=== PATIENT | male | born 1950 | race Caucasian/White ===

== ENCOUNTER 2019-01-09 09:45 | Inpatient (IN) | payer OTHER, MEDICARE, SELFPAY ==
[2019-01-09] VITALS (16 sets, daily range): BP systolic 149–179; BP diastolic 95–105; PULSE 77–89; RESP 10–28; TEMP 36.4–36.9; O2SAT 93–97; BMI 32.5; BMI 30.9; BMI 31.0
--- NOTE | 2019-01-09 10:00 | RAD_ITS ---
STUDY: X-RAY CHEST REASON FOR EXAM: Male, 68 years old. Shortness of breath and leg swelling. TECHNIQUE: Single AP portable view of the chest. COMPARISON: Prior comparison studies are not available for review at this time. FINDINGS: Cardiac monitoring leads are present. The lungs are expanded. There is right basilar airspace disease and/or subsegmental atelectasis. There is a small left-sided pleural effusion. There is mild cardiac enlargement. Normal mediastinum and eric. Normal visualized pulmonary arteries. There is atherosclerotic calcification of the aortic arch with tortuosity. Normal visualized thoracic spine. Normal visualized ribs, clavicles, and shoulders. There is no demonstrated abnormality of the visualized soft tissue structures of the upper abdomen. RAD/Chest 1 View (Portable) IMPRESSION: There is right basilar airspace consolidation and subsegmental atelectasis. Electronically Signed: Elba Clark MD at 10:24 EDT , Service support ,
--- NOTE | 2019-01-09 10:00 | EKG12_ITS ---
Test Reason : SOB Blood Pressure : / mmHG Vent. Rate : 089 BPM Atrial Rate : 089 BPM P-R Int : 152 ms QRS Dur : 078 ms QT Int : 386 ms P-R-T Axes : 050 -23 103 degrees QTc Int : 469 ms Normal sinus rhythm Anteroseptal infarct , age undetermined Abnormal ECG Confirmed by MEAGHAN FOWLER, VERONIQUE ([id number]), editor news FELECIA ANGUIANO ([id number]) on 01/14/2019 9:44:08 A M Referred By: TROY Confirmed By:MOLLY HARDING MD
[2019-01-09 10:14] LABS: Absolute Lymphocyte Count 1.05 X10^3/uL (0.83-4.51); Basophil# 0.03 X10^3/uL; Basophil% 0.3 % (0-1); Eosinophil# 0.11 X10^3/uL; Eosinophils% 1.2 % (0-5); Hematocrit 52.2 % (40-54); Hemoglobin 16.9 g/dL (13.0-16.5); Lymphocyte # 1.05 X10^3/ul (4.0); Lymphocyte % 11.8 % (19-41); Mean Corp Hgb Conc 32.4 g/dL (32-36); Mean Corpuscular Hgb 30.4 pg (27.0-32.0); Mean Corpuscular Volume 93.9 fL (80-94); Mean Platelet Vol. 10.3 fl (6.2-12.0); Monocyte# 0.65 X10^3/uL; Monocyte% 7.3 % (0-10); NRBC Flagged by Analyzer 0 % (0-5); Neutrophil # 7.03 X10^3/uL (2.7-7.7); Neutrophil % 78.7 % (47-70); Platelet Count 223 K/mm3 (150-450); RBC Distribution Width CV 13.4 % (11.6-14.6); RBC Distribution Width SD 46.1 fl (35.1-43.9); Red Blood Count 5.56 M/mm3 (4.6-6.2); White Blood Count 8.9 K/mm3 (4.4-11.0)
[2019-01-09 10:31] LABS: Anion Gap 0 (5-15); BUN 12 mg/dL (7-18); BUN/Creat Ratio 14.1 RATIO (10-20); Calcium,Total 8.8 mg/dL (8.5-10.1); Chloride 101 mmol/L (98-107); Creatinine, Serum 0.85 mg/dL (0.70-1.30); EST Glomerular Filtration Rate 95 mL/min (>60); Est Glom Filt Rate - Afr Amer 115 mL/min (>60); Estimated Creatinine Clearance 91.29 ml/min; Glucose 98 mg/dL (74-106); Potassium 3.9 mmol/L (3.5-5.1); Sodium Level 140 mmol/L (136-145)
[2019-01-09] MEDS: Aspirin 81 MG TAB.CHEW 324 MG PO (10:35)
[2019-01-09] MEDS: Furosemide 20 MG/2 ML VIAL IV (10:35)
[2019-01-09 10:40] LABS: BNP,B-Type NATRIURETIC PEPTIDE 902.2 pg/mL (0-100)
--- NOTE | 2019-01-09 10:45 | CT_ITS ---
STUDY: CTA CHEST REASON FOR EXAM: Male, 68 years old. Shortness of breath and congestive heart failure. RADIATION DOSAGE (If Supplied By Facility): CTDIvol = ( 14.98 ) mGy, DLP = ( 564.92 ) mGycm TECHNIQUE: The examination was performed with the intravenous administration of 100 ml of Isovue 370. Post-processing of the angiographic images was performed, with multiplanar reformation and 3D reconstruction. Individualized dose optimization techniques were used for this CT. COMPARISON: Prior comparison studies are not available for review at this time. FINDINGS: Normal enhancement of the main pulmonary artery and right and left pulmonary arteries. Normal enhancement of the bilateral peripheral pulmonary arteries. There is no demonstrated pulmonary embolism. There is prominence of the main pulmonary arteries and peripheral pulmonary arteries. There is atherosclerotic tortuosity of the aortic arch and descending thoracic aorta. Maximum transverse dimension of the descending thoracic aorta is 4.5 cm. There is no demonstrated aortic dissection. There is a moderately large pericardial effusion located anterior to the heart measuring approximately 2.4 cm in thickness. Normal mediastinum. Normal hilar regions. Normal visualized trachea and bronchi. The lungs are hyper expanded, with flattening of the hemidiaphragms. There is bilateral basilar dependent and compressive atelectasis. There is right middle lobe subsegmental atelectasis. There are large bilateral pleural effusions, right larger than left. There is a calcified nodule in the left lower lobe. Normal chest wall structures. There are degenerative changes of thoracic spine. There is reflux of contrast into the hepatic veins suggesting pulmonary congestion. CT/CTA Chest W/WO Contrast IMPRESSION: 1. No CTA demonstrated pulmonary embolism or arterial dissection. 2. Findings suggest congestive heart failure with large bilateral pleural effusions, bilateral compressive atelectasis and possible airspace disease. 3. Moderately large pericardial effusion. Electronically Signed: Elba Clark MD at 11:43 EDT , Service support ,
--- NOTE | 2019-01-09 10:46 | HP.PCM_ITS ---
Problem List (1) CHF (congestive heart failure) Status: Acute (2) Essential (primary) hypertension Status: Chronic History of Present Illness Date of Admission: 01/09/19 Chief Complaint: Shortness of breath The patient is a 68 year old M past medical history significant essential hypertension who was sent from his PCPs office with shortness of breath. Patient reports progressive shortness of breath over the past couple of weeks. He also did notice increasing swelling involving both lower extremities. He also complains of easy fatigability. He was seen and assessed on his day of admission at his PCPs office patient was felt to be in acute congestive heart failure and subsequently sent to the ED. His diagnosis was confirmed in the ED started on Lasix and admitted to a monitored bed for further management. Past Medical History Past Medical History (Chronic Problems): Chronic Problems Essential (primary) hypertension (Chronic) Allergies No Known Allergies Allergy (Verified 01/09/19 09:49) Smoking Status: Never smoker - *Family History Maternal History Items: - - Mother patient unsure of the cause Paternal History Items: - - Patient not sure of father's cause of Review of Systems Constitutional: Reports: Weight Change. Denies: Anorexia, Chills, Fever, Night Sweats HEENT: Denies: Head Aches, Sinus Congestion, Sinus Drainage Cardiovascular: Reports: Edema, Orthopnea. Denies: Chest Pain, Palpitations, Paroxysmal Noc. Dyspnea Respiratory: Denies: Cough, Shortness of Breath Gastrointestinal: Denies: Abdominal Pain, Hematemesis, Hematochezia, Nausea, Melena, Vomiting Genitourinary: Denies: Dysuria, Frequency, Hematuria, Urgency Musculoskeletal: Denies: Joint Pain, Joint Tenderness Skin: Denies: Rash Neurological: Denies: Focal weakness, Numbness, Tingling Psychiatric: Denies: Homicidal Ideations, Suicidal Ideations Hematologic/ Lymphatic: Denies: Easy Bruising, Easy Bleeding VTE Information - Inpt Only VTE Present on Admission: No VTE Mechan Device Prophylaxis: SCD's VTE Pharm Prophylaxis ordered?: Yes Patient Problems: Active and Suspected Problems CHF (congestive heart failure) (Acute) Objective: GENERAL: cooperative HEENT: Atraumatic; moist oral mucosa EYES; Anicteric, Normal Conjunctiva NECK; supple, normal thyroid, distended JVD. RESPIRATORY: Diminished to auscultation bilaterally, CARDIOVASCULAR: Regular S1 S2, s GI: soft, non-tender, normoactive bowel sounds, : No Renal angle tenderness; EXTREMITIES: 2+ edema, no clubbing, no cyanosis. MUSCULOSKELETAL: No Joint Tenderness; g NEURO: Awake; no lateralizing signs. SKIN: No Rash PSYCH; Normal affect - Physical Exam Vital Signs Temp Pulse Resp BP Pulse Ox 98 F 86 18 179/105 H 97 01/09/19 09:46 01/09/19 09:46 01/09/19 09:46 01/09/19 09:46 01/09/19 10:19 Oxygen Flow Rate (L/min) 2 Oxygen Delivery Method Nasal Cannula Weight: 108.862 kg Body Mass Index (BMI) 32.5 Laboratory Tests Past 24 Hrs 01/09/19 01/09/19 01/09/19 10:05 10:05 10:05 WBC 8.9 RBC 5.56 Hgb 16.9 H Hct 52.2 MCV 93.9 MCH 30.4 MCHC 32.4 RDW Std Deviation 46.1 H RDW Coeff of Babita 13.4 Plt Count 223 MPV 10.3 Immature Gran % (Auto) 0.700 Neut % (Auto) 78.7 H Lymph % (Auto) 11.8 L Nobles % (Auto) 7.3 Eos % (Auto) 1.2 Baso % (Auto) 0.3 Absolute Neuts (auto) 7.0 Absolute Lymphs (auto) 1.05 Nucleated RBC % 0 Sodium 140 Potassium 3.9 Chloride 101 Carbon Dioxide 39.0 H Anion Gap 0 L BUN 12 Creatinine 0.85 Estim Creat Clear Calc 91.29 Est GFR (MDRD) Af Amer 115 Est GFR (MDRD) Non-Af 95 BUN/Creatinine Ratio 14.1 Glucose 98 Calcium 8.8 Troponin I 0.037 B-Natriuretic Peptide 902.2 H Assessment/Plan All Active Problems CHF (congestive heart failure) (Acute) Patient is a 68-year-old gentleman presented with progressive shortness of breath 1. Acute congestive heart failure ~Unspecified. Patient has been admitted to monitored bed as part of his management patient was placed on daily input and output, daily weights, restriction, low-sodium diet. Echo was ordered for EF assessment. Patient was placed on Lasix and consultation placed to cardiology 2. Large bilateral pleural effusions ~With bilateral compressive atelectasis and possible airspace disease secondary to above management is with Lasix however if patient failed to respond we will consider obtaining an ultrasound-guided thoracocentesis 3. Moderately large pericardial effusion ~an echo has been ordered for subsequent evaluation; found on echo obtain cardiology consultation 4. Essential hypertension ~Continue patient home meds once his meds have been reconciled 5. Obesity ~ with BMI of 32.5 weight loss advised 6. DVT prophylaxis ~ SC Lovenox Clinical Impression(s) from Imaging Studies Chest X-Ray 01/09/19 10:00 IMPRESSION: There is right basilar airspace consolidation and subsegmental atelectasis. Electronically Signed: Elba Clark MD at 10:24 EDT , Service support , Chest CTA 01/09/19 10:45 IMPRESSION: 1. No CTA demonstrated pulmonary embolism or arterial dissection. 2. Findings suggest congestive heart failure with large bilateral pleural effusions, bilateral compressive atelectasis and possible airspace disease. 3. Moderately large pericardial effusion. Electronically Signed: Elba Clark MD at 11:43 EDT , Service support , Code Visit Inpatient E&M: 24554 Init Hosp L3
--- NOTE | 2019-01-09 11:13 | CPS ---
Patient placed back on BIPAP after trip to CT Scan. Pressures increased to 12/6.
--- NOTE | 2019-01-09 12:16 | ED.RN ---
pt to PCU on 2 L NC. resp will bring BIPAP to floor.
--- NOTE | 2019-01-09 12:53 | ECHOD_ITS ---
Version 2 Reason For Study: Dyspnea/SOB Procedure This was a 2D Doppler, Color Flow transthoracic echocardiogram. Pericardial and Pleural Effusions seen on CT. Exam performed portable in patient room. Left Ventricle Normal LV size. Concentric left ventricular hypertrophy. The estimated ejection fraction is 60 %. No evidence for diastolic dysfunction. No regional wall motion abnormalities noted. Right Ventricle Normal RV size. Normal systolic function. Atria Normal left atrium. Normal right atrium. No doppler evidence for ASD. Mitral Valve There is no mitral valve stenosis. No mitral valve insufficiency. Tricuspid Valve There is no tricuspid stenosis. Unable to estimate RV systolic pressure due to insufficient tricuspid regurgitant envelope. Trivial tricuspid valve insufficiency. Aortic Valve Trisinus/trileaflet aortic valve. There is no aortic stenosis. No aortic valve insufficiency. Pulmonic Valve There is no pulmonic valvular stenosis. No pulmonic valve insufficiency. Great Vessels Normal aortic root. Pericardium/Pleural Small pericardial effusion. Large left pleural effusion. MMode/2D Measurements & Calculations LVIDd: 4.2 cm IVSd: 1.8 cm Ao root diam: 3.7 cm LVIDs: 3.0 cm LVPWd: 1.5 cm LA dimension: 4.1 cm FS: 29.5 % LAV(MOD-bp): 72.4 ml LA A4 area: 23.5 cm2 RA A4 area: 13.6 cm2 LAV(MOD-bp) Indexed: 32.1 ml/m2 LAV(MOD-sp2): 63.8 ml LAV(MOD-sp4): 77.6 ml Time Measurements MV dec time: 0.20 sec Doppler Measurements & Calculations MV E max moy: 61.5 cm/sec Lat Peak E' Moy: 6.5 cm/sec Med Peak E' Moy: 6.7 cm/sec MV A max moy: 69.1 cm/sec E/E' lat: 9.5 E/E' med: 9.2 MV E/A: 0.89 MV V2 max: 92.5 cm/sec MV P1/2t max moy: 92.5 cm/sec Ao V2 max: 91.1 cm/sec MV max P.4 mmHg MV P1/2t: 57.0 msec Ao max P.3 mmHg MV V2 mean: 50.4 cm/sec MV dec slope: 475.9 cm/sec2 MV mean P.2 mmHg MVA(P1/2t): 3.9 cm2 MV V2 VTI: 16.4 cm LV V1 max: 89.8 cm/sec PA V2 max: 88.6 cm/sec LV V1 max P.2 mmHg Interpretation Summary Concentric left ventricular hypertrophy. The estimated ejection fraction is 60 %. No evidence for diastolic dysfunction. Small pericardial effusion. Large left pleural effusion. Ordering Physician: Yimi Castro Referring Physician: Roseann Pate Performed By: Maurice Santiago RCS
[2019-01-09 13:36] LABS: Magnesium 2.1 mg/dL (1.6-2.6); Thyroid Stim Hormone (TSH) 7.33 uIU/mL (0.358-3.74)
[2019-01-09] MEDS: Furosemide 40 MG/4 ML Vial IV ×2 (15:14→21:33)
--- NOTE | 2019-01-09 17:37 | ED.DCSUM_ITS ---
- ER Visit Summary Date of Service: 01/09/19 Chief Complaint: Shortness of breath History of Present Illness: The patient is a [address] Pate. He complains of shortness of breath began 5 days ago. It is severe with exertion gone currently. He denies any chest pain. No cough, fever, or chills. Reports he has had swelling in both legs for 1 week. Physical Examination: Vitals: Stable. Afebrile. General: Well-nourished and well-developed. Head: Normocephalic atraumatic. Neck: Supple, no lymphadenopathy. No JVD. Nontender. Cardiovascular: Regular rate and rhythm. No murmurs. Respiratory: Mild respiratory distress. Crackles at the bases bilaterally. Y. Abdominal: Soft, nontender, nondistended, normal bowel sounds. No guarding, rebound, or peritoneal signs. Back: Nontender. Extremities: Nontender, 2+ pitting edema lower extremities bilaterally. 1+ pitting edema of his left upper extremity. Skin: Normal color, no rash. Neurologic: Alert and oriented ?3. Cranial nerves II through XII are intact. Normal strength and sensation. Psych: Normal affect. Test Results: EKG is sinus at 89. He has ST segment elevation in lead prior anterior NC or LV aneurysm. There is no old EKG for comparison. Initial troponin 0 0.037. 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 Chem-7 shows a CO2 of 39. CBC shows a hemoglobin 16.9, segmented for 7, 612. Chest x-ray shows CHF with atelectasis. Emergency Department Course and Treatment: Patient was placed on oxygen. He is quite tachypneic in bed. He was placed on BiPAP and has had significant relief from this. Is given a dose of Lasix IV and aspirin p.o. Treatment Plan: Patient was discussed with Dr. berman. He will be admitted to the hospital for further evaluation and treatment. Disposition: Admitted in improved condition. Impression: 1. CHF, new onset. 2. Indeterminate troponin. This note was generated with [employer] software. It may contain incorrect words, spelling, and punctuation that were not noted in review of the chart prior to signing ED Disposition - Plan for ED Patient: Disposition: Acute Care [facility]
[2019-01-09] MEDS: 0.9% NaCl Peripheral Flush Adult/Peds IV (21:33)
[2019-01-10] VITALS (17 sets, daily range): BP systolic 108–150; BP diastolic 70–102; PULSE 81–100; RESP 10–20; TEMP 36.4–36.9; O2SAT 92–98
[2019-01-10] MEDS: Furosemide 40 MG/4 ML Vial IV ×3 (05:50→21:41)
[2019-01-10] MEDS: 0.9% NaCl Peripheral Flush Adult/Peds IV ×4 (05:50→21:42)
[2019-01-10 06:21] LABS: Absolute Lymphocyte Count 0.98 X10^3/uL (0.83-4.51); Absolute Neutrophil Count 4.6 X10^3/uL (2.0-7.7); Basophil# 0.01 X10^3/uL; Basophil% 0.2 % (0-1); Eosinophil# 0.16 X10^3/uL; Eosinophils% 2.6 % (0-5); Hematocrit 47.5 % (40-54); Lymphocyte # 0.98 X10^3/ul (4.0); Lymphocyte % 15.6 % (19-41); Mean Corp Hgb Conc 31.6 g/dL (32-36); Mean Corpuscular Hgb 29.7 pg (27.0-32.0); Mean Corpuscular Volume 94.1 fL (80-94); Monocyte# 0.51 X10^3/uL; Monocyte% 8.1 % (0-10); NRBC Flagged by Analyzer 0 % (0-5); Neutrophil # 4.58 X10^3/uL (2.7-7.7); Platelet Count 189 K/mm3 (150-450); RBC Distribution Width CV 13.4 % (11.6-14.6); RBC Distribution Width SD 46.3 fl (35.1-43.9); Red Blood Count 5.05 M/mm3 (4.6-6.2); White Blood Count 6.3 K/mm3 (4.4-11.0)
[2019-01-10 06:51] LABS: Anion Gap 4 (5-15); BUN 17 mg/dL (7-18); Calcium,Total 8.1 mg/dL (8.5-10.1); Chloride 100 mmol/L (98-107); Creatinine, Serum 0.85 mg/dL (0.70-1.30); EST Glomerular Filtration Rate 95 mL/min (>60); Est Glom Filt Rate - Afr Amer 115 mL/min (>60); Estimated Creatinine Clearance 91.29 ml/min; Glucose 96 mg/dL (74-106); Magnesium 1.9 mg/dL (1.6-2.6); Potassium 4.2 mmol/L (3.5-5.1); Sodium Level 143 mmol/L (136-145)
[2019-01-10 09:27] LABS: Free T3 1.7 pg/mL (2.18-3.98)
[2019-01-10] MEDS: Enoxaparin 40 MG/0.4 ML Syringe SC (09:34)
[2019-01-10] MEDS: Metoprolol(XL)Succ 200 MG Tablet PO (09:36)
--- NOTE | 2019-01-10 10:13 | PCM.PROGNOTE ---
<Lauryn Vincent - Last Filed: 01/10/19 10:29> Patient Problems: Active and Suspected Problems CHF (congestive heart failure) (Acute) Subjective: Patient seen and examined. Reports improvement in shortness of breath and upper and lower extremity edema. Patient reports his baseline weight is approximately 224 pounds. Weight on admission to 40 pounds. Patient reports he initially noticed swelling and shortness of breath about 1 month ago. Denies history of heart failure. Denies chest pain. - Physical Exam General: Alert, Oriented x3, Cooperative HEENT: Atraumatic, PERRLA, EOMI, Normocephalic Neck: Supple, No JVD, Negative Carotid Bruits Lungs: Clear to auscultation, Diminished Cardiovascular: Regular rate, Regular Rhythm, Normal S1, Normal S2, No murmurs Abdomen: Bowel Sounds Present, Soft, Non Tender, Non-Distended Extremities: No clubbing, No cyanosis, Edema - +2 bilateral lower extremities, +1 bilateral upper extremities. Skin: No rashes, No breakdown Musculoskeletal: No Tenderness to Palpation of Joints or Extremities Neurological: Cranial nerves II-XII grossly intact, Neuro grossly intact Psych/Mental Status: Normal Affect, Appropriate Vital Signs Temp Pulse Resp BP Pulse Ox 98.3 F 90 16 119/76 95 01/10/19 09:30 01/10/19 09:36 01/10/19 09:30 01/10/19 09:36 01/10/19 09:30 Oxygen Flow Rate (L/min) 2 Oxygen Delivery Method Nasal Cannula Weight: 228 lb 9.592 oz Body Mass Index (BMI) 30.9 Intake and Output for Last 24 Hours 01/08/19 01/09/19 01/10/19 23:59 23:59 23:59 Intake Total 360 / 360 120 / 120 Output Total 2250 / 2250 625 / 625 Balance -1890 / -1890 -505 / -505 Laboratory Tests Past 24 Hrs 01/09/19 01/09/19 01/09/19 10:03 10:05 10:05 WBC 8.9 RBC 5.56 Hgb 16.9 H Hct 52.2 MCV 93.9 MCH 30.4 MCHC 32.4 RDW Std Deviation 46.1 H RDW Coeff of Babita 13.4 Plt Count 223 MPV 10.3 Immature Gran % (Auto) 0.700 Neut % (Auto) 78.7 H Lymph % (Auto) 11.8 L Hart % (Auto) 7.3 Eos % (Auto) 1.2 Baso % (Auto) 0.3 Absolute Neuts (auto) 7.0 Absolute Lymphs (auto) 1.05 Nucleated RBC % 0 Sodium 140 Potassium 3.9 Chloride 101 Carbon Dioxide 39.0 H Anion Gap 0 L BUN 12 Creatinine 0.85 Estim Creat Clear Calc 91.29 Est GFR (MDRD) Af Amer 115 Est GFR (MDRD) Non-Af 95 BUN/Creatinine Ratio 14.1 Glucose 98 Calcium 8.8 Magnesium 2.1 Troponin I 0.037 B-Natriuretic Peptide TSH 7.33 H Free T4 Free T3 pg/dL 01/09/19 01/09/19 01/09/19 10:05 14:33 17:38 WBC RBC Hgb Hct MCV MCH MCHC RDW Std Deviation RDW Coeff of Babita Plt Count MPV Immature Gran % (Auto) Neut % (Auto) Lymph % (Auto) Hart % (Auto) Eos % (Auto) Baso % (Auto) Absolute Neuts (auto) Absolute Lymphs (auto) Nucleated RBC % Sodium Potassium Chloride Carbon Dioxide Anion Gap BUN Creatinine Estim Creat Clear Calc Est GFR (MDRD) Af Amer Est GFR (MDRD) Non-Af BUN/Creatinine Ratio Glucose Calcium Magnesium Troponin I 0.040 0.037 B-Natriuretic Peptide 902.2 H TSH Free T4 Free T3 pg/dL 01/10/19 01/10/19 01/10/19 05:40 05:40 05:42 WBC 6.3 RBC 5.05 Hgb 15.0 Hct 47.5 MCV 94.1 H MCH 29.7 MCHC 31.6 L RDW Std Deviation 46.3 H RDW Coeff of Babita 13.4 Plt Count 189 MPV 10.0 Immature Gran % (Auto) 0.500 Neut % (Auto) 73.0 H Lymph % (Auto) 15.6 L Hart % (Auto) 8.1 Eos % (Auto) 2.6 Baso % (Auto) 0.2 Absolute Neuts (auto) 4.6 Absolute Lymphs (auto) 0.98 Nucleated RBC % 0 Sodium 143 Potassium 4.2 Chloride 100 Carbon Dioxide 39.0 H Anion Gap 4 L BUN 17 Creatinine 0.85 Estim Creat Clear Calc 91.29 Est GFR (MDRD) Af Amer 115 Est GFR (MDRD) Non-Af 95 BUN/Creatinine Ratio 20.0 Glucose 96 Calcium 8.1 L Magnesium 1.9 Troponin I B-Natriuretic Peptide TSH Free T4 0.80 Free T3 pg/dL 1.7 L Medical Necessity - Tobacco Use Smoking Status: Former smoker Assessment/Plan All Active Problems CHF (congestive heart failure) (Acute) 1. Acute CHF, unknown subtype-no prior history of CHF. BNP 902. CT of chest showed CHF with large bilateral pleural effusions. Moderately large pericardial effusion. Echocardiogram completed, report pending. Continue IV Lasix 40 mg every 8 hours. Strict I&O. Daily weight. Cardiology consulted. 2. Hypertension-stable, continue home metoprolol regimen. 3. Subclinical hypothyroidism-TSH 7.3. T4 normal. Recommend repeat TSH in 4-6 weeks as outpatient. 4. Obesity- encouraged diet and lifestyle modifications. DVT prophylaxis-Lovenox subcu This patient was seen by HOLLY Moody under the supervision of Dr. Castro. <Yimi Castro - Last Filed: 01/10/19 10:43> - Physical Exam Vital Signs Temp Pulse Resp BP Pulse Ox 98.3 F 90 16 119/76 95 01/10/19 09:30 01/10/19 09:36 01/10/19 09:30 01/10/19 09:36 01/10/19 09:30 Oxygen Flow Rate (L/min) 2 Oxygen Delivery Method Nasal Cannula Weight: 103.691 kg Body Mass Index (BMI) 30.9 Intake and Output for Last 24 Hours 01/08/19 01/09/19 01/10/19 23:59 23:59 23:59 Intake Total 360 / 360 120 / 120 Output Total 2250 / 2250 625 / 625 Balance -1890 / -1890 -505 / -505 Laboratory Tests Past 24 Hrs 01/09/19 01/09/19 01/09/19 10:03 10:05 14:33 WBC RBC Hgb Hct MCV MCH MCHC RDW Std Deviation RDW Coeff of Babita Plt Count MPV Immature Gran % (Auto) Neut % (Auto) Lymph % (Auto) Hart % (Auto) Eos % (Auto) Baso % (Auto) Absolute Neuts (auto) Absolute Lymphs (auto) Nucleated RBC % Sodium Potassium Chloride Carbon Dioxide Anion Gap BUN Creatinine Estim Creat Clear Calc Est GFR (MDRD) Af Amer Est GFR (MDRD) Non-Af BUN/Creatinine Ratio Glucose Calcium Magnesium 2.1 Troponin I 0.040 B-Natriuretic Peptide 902.2 H TSH 7.33 H Free T4 Free T3 pg/dL 01/09/19 01/10/19 01/10/19 17:38 05:40 05:40 WBC 6.3 RBC 5.05 Hgb 15.0 Hct 47.5 MCV 94.1 H MCH 29.7 MCHC 31.6 L RDW Std Deviation 46.3 H RDW Coeff of Babita 13.4 Plt Count 189 MPV 10.0 Immature Gran % (Auto) 0.500 Neut % (Auto) 73.0 H Lymph % (Auto) 15.6 L Hart % (Auto) 8.1 Eos % (Auto) 2.6 Baso % (Auto) 0.2 Absolute Neuts (auto) 4.6 Absolute Lymphs (auto) 0.98 Nucleated RBC % 0 Sodium 143 Potassium 4.2 Chloride 100 Carbon Dioxide 39.0 H Anion Gap 4 L BUN 17 Creatinine 0.85 Estim Creat Clear Calc 91.29 Est GFR (MDRD) Af Amer 115 Est GFR (MDRD) Non-Af 95 BUN/Creatinine Ratio 20.0 Glucose 96 Calcium 8.1 L Magnesium 1.9 Troponin I 0.037 B-Natriuretic Peptide TSH Free T4 Free T3 pg/dL 01/10/19 05:42 WBC RBC Hgb Hct MCV MCH MCHC RDW Std Deviation RDW Coeff of Babita Plt Count MPV Immature Gran % (Auto) Neut % (Auto) Lymph % (Auto) Hart % (Auto) Eos % (Auto) Baso % (Auto) Absolute Neuts (auto) Absolute Lymphs (auto) Nucleated RBC % Sodium Potassium Chloride Carbon Dioxide Anion Gap BUN Creatinine Estim Creat Clear Calc Est GFR (MDRD) Af Amer Est GFR (MDRD) Non-Af BUN/Creatinine Ratio Glucose Calcium Magnesium Troponin I B-Natriuretic Peptide TSH Free T4 0.80 Free T3 pg/dL 1.7 L Assessment/Plan This patient was seen in conjunction with HOLLY Moody . I have independently interviewed and examined the patient and reviewed pertinent historical, laboratory, and other data. Please refer to HOLLY Moody note for details of this patient's presentation, findings, and recommendations. I have reviewed ASHLEY MoodyC note and concur with documented findings. In brief, Patient is a 68-year-old gentleman presented with progressive shortness of breath and assessment of congestive heart failure made admitted to monitored bed for further management Physical Examination: GENERAL: cooperative HEENT: Atraumatic; moist oral mucosa EYES; Anicteric, Normal Conjunctiva NECK; supple, normal thyroid, distended JVD. RESPIRATORY: Diminished to auscultation bilaterally, CARDIOVASCULAR: Regular S1 S2, s GI: soft, non-tender, normoactive bowel sounds, : No Renal angle tenderness; EXTREMITIES: 2+ edema, no clubbing, MUSCULOSKELETAL: No Joint Tenderness; NEURO: Awake; no lateralizing signs. SKIN: No Rash PSYCH; Normal affect Assessment: 1. Acute congestive heart failure 2. Large bilateral pleural effusions 3. Moderately large pericardial effusion 4. Essential hypertension 5. Obesity 6. Abnormal TSH 7. DVT prophylaxis Recommendations: 1. I have discussed the results of my overview and impressions with the patient 2. Options for management were reviewed Code Visit Inpatient E&M: 60442 Subs Hosp L3
--- NOTE | 2019-01-10 11:40 | NURSING ---
Used to CARLTON wraps on lower extremities bilaterally.
--- NOTE | 2019-01-10 13:07 | NURSING ---
Javon wraps applied to bilateral lower legs, from toes to knees, by the student nurse.
--- NOTE | 2019-01-10 14:41 | CM.UR ---
RN CM Assessment Introduced role of RN CM to patient. Patient is alert and able to participate in RN CM Assessment. Care providers, pharmacy, and demographics verified. No family at bedside. Presentation: SOB, BLE swelling x 1 week. Admit Dx: CHF Re-Admit: No Barriers/Issues: None PCP: [place] Specialists: none Preferred Pharmacy: [facility] Insurance: MMO; MCR A Rx Benefit: yes MMO LNOK: Juany, S.O. LW/HPOA: None and declines additional information. Living Arrangements: Lives with girlfrienmimi, Juany, and her daughter and grandson. ADL?s: Independent Transportation: Drives. Still working. DME: States girlfriend has walker and w/c. DME co: no preference HHC: None SNF: None Goal: Home DC PLAN: Home with NN. discussed that he is currently on O2 and we would follow him for that. He states if he needs it-he will need written of work. 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 Explained more than likely he will not need to go home with it. Instructed patient on daily weights and to call Dr. Pate for any gain of 3# overnight, over 5# in 1 week or progressively increasing weight. Instructed best time is first thing in am, after urinating but before eating or drinking anything. Explained wear the same amount of clothing when weighing. Verb understanding. Alerting KYM Nicholson of need to wean O2. she states patient was hesitant to have it weaned and she thinks she can get him off of it pretty quick. Alexis Cosme RN, [facility].
[2019-01-11] VITALS (12 sets, daily range): BP systolic 135–153; BP diastolic 80–94; PULSE 84–101; RESP 16–17; TEMP 36.6–36.8; O2SAT 94–98
--- NOTE | 2019-01-11 02:48 | CPS ---
patient refused pap therapy. patient advised of pap therapy benefits but still refused therapy. RN aware
[2019-01-11] MEDS: Furosemide 40 MG/4 ML Vial IV (06:19)
[2019-01-11] MEDS: 0.9% NaCl Peripheral Flush Adult/Peds IV ×2 (06:19→06:20)
[2019-01-11 06:42] LABS: Anion Gap 4 (5-15); BUN 24 mg/dL (7-18); BUN/Creat Ratio 26.9 RATIO (10-20); Calcium,Total 8.2 mg/dL (8.5-10.1); Chloride 101 mmol/L (98-107); Creatinine, Serum 0.89 mg/dL (0.70-1.30); EST Glomerular Filtration Rate 90 mL/min (>60); Est Glom Filt Rate - Afr Amer 109 mL/min (>60); Estimated Creatinine Clearance 87.19 ml/min; Glucose 90 mg/dL (74-106); Potassium 3.7 mmol/L (3.5-5.1); Sodium Level 144 mmol/L (136-145)
[2019-01-11] MEDS: Enoxaparin 40 MG/0.4 ML Syringe SC (09:37)
[2019-01-11] MEDS: Metoprolol(XL)Succ 200 MG Tablet PO (09:38)
--- NOTE | 2019-01-11 10:31 | PCM.PROGNOTE ---
<Lauryn Vincent - Last Filed: 01/11/19 10:43> Patient Problems: Active and Suspected Problems CHF (congestive heart failure) (Acute) Subjective: Patient seen and examined. Denies shortness of breath. Lower extremity edema significantly improved. Awaiting echo results. Appears to be at baseline weight. - Physical Exam General: Alert, Oriented x3, Cooperative HEENT: Atraumatic, PERRLA, EOMI, Normocephalic Neck: Supple, No JVD, Negative Carotid Bruits Lungs: Clear to auscultation, Diminished Cardiovascular: Regular rate, Regular Rhythm, Normal S1, Normal S2, No murmurs Abdomen: Bowel Sounds Present, Soft, Non Tender, Non-Distended Extremities: No clubbing, No cyanosis, Capillary Refill Less than 3 Seconds, Edema - Bilateral lower extremities, improved. Skin: No rashes, No breakdown Musculoskeletal: No Tenderness to Palpation of Joints or Extremities Neurological: Cranial nerves II-XII grossly intact, Neuro grossly intact Psych/Mental Status: Normal Affect, Appropriate Vital Signs Temp Pulse Resp BP Pulse Ox 98.2 F 98 16 135/80 H 98 01/11/19 09:25 01/11/19 09:38 01/11/19 09:25 01/11/19 09:38 01/11/19 09:25 Oxygen Flow Rate (L/min) 2 Oxygen Delivery Method Room Air Weight: 223 lb 15.834 oz Body Mass Index (BMI) 30.9 Intake and Output for Last 24 Hours 01/09/19 01/10/19 01/11/19 23:59 23:59 23:59 Intake Total 360 / 360 1160 / 1160 Output Total 2250 / 2250 2725 / 2725 300 / 300 Balance -1890 / -1890 -1565 / -1565 -300 / -300 Laboratory Tests Past 24 Hrs 01/11/19 05:38 Sodium 144 Potassium 3.7 Chloride 101 Carbon Dioxide 39.0 H Anion Gap 4 L BUN 24 H Creatinine 0.89 Estim Creat Clear Calc 87.19 Est GFR (MDRD) Af Amer 109 Est GFR (MDRD) Non-Af 90 BUN/Creatinine Ratio 26.9 H Glucose 90 Calcium 8.2 L Medical Necessity - Tobacco Use Smoking Status: Former smoker Assessment/Plan All Active Problems CHF (congestive heart failure) (Acute) 1. Acute CHF, unknown subtype-no prior history of CHF. BNP 902. CT of chest showed CHF with large bilateral pleural effusions. Moderately large pericardial effusion. Echocardiogram completed, report pending. Reduce IV Lasix to 40 mg daily. Strict I&O. Daily weight. Cardiology consulted. 2. Hypertension-stable, continue home metoprolol regimen. 3. Subclinical hypothyroidism-TSH 7.3. T4 normal. Recommend repeat TSH in 4-6 weeks as outpatient. 4. Obesity- encouraged diet and lifestyle modifications. DVT prophylaxis-Lovenox subcu This patient was seen by HOLLY Moody under the supervision of Dr. Castro. <Yimi Castro - Last Filed: 01/11/19 10:48> - Physical Exam Vital Signs Temp Pulse Resp BP Pulse Ox 98.2 F 98 16 135/80 H 98 01/11/19 09:25 01/11/19 09:38 01/11/19 09:25 01/11/19 09:38 01/11/19 09:25 Oxygen Flow Rate (L/min) 2 Oxygen Delivery Method Room Air Weight: 101.6 kg Body Mass Index (BMI) 30.9 Intake and Output for Last 24 Hours 01/09/19 01/10/19 01/11/19 23:59 23:59 23:59 Intake Total 360 / 360 1160 / 1160 Output Total 2250 / 2250 2725 / 2725 300 / 300 Balance -1890 / -1890 -1565 / -1565 -300 / -300 Laboratory Tests Past 24 Hrs 01/11/19 05:38 Sodium 144 Potassium 3.7 Chloride 101 Carbon Dioxide 39.0 H Anion Gap 4 L BUN 24 H Creatinine 0.89 Estim Creat Clear Calc 87.19 Est GFR (MDRD) Af Amer 109 Est GFR (MDRD) Non-Af 90 BUN/Creatinine Ratio 26.9 H Glucose 90 Calcium 8.2 L Assessment/Plan This patient was seen in conjunction with HOLLY Moody . I have independently interviewed and examined the patient and reviewed pertinent historical, laboratory, and other data. Please refer to HOLLY Moody note for details of this patient's presentation, findings, and recommendations. I have reviewed HOLLY Moody note and concur with documented findings. In brief, Patient is a 68-year-old gentleman presented with progressive shortness of breath and assessment of congestive heart failure made admitted to monitored bed for further management 01/11/2019: Patient seen admitted improvement in his overall condition. His edema significantly down. Echo performed was performed on 01/09/2019. Results still pending awaiting results of echo prior to making a decision whether cardiology needs to be involved in patient's care Physical Examination: GENERAL: cooperative HEENT: Atraumatic; moist oral mucosa EYES; Anicteric, Normal Conjunctiva NECK; supple, normal thyroid, distended JVD. RESPIRATORY: Diminished to auscultation bilaterally, CARDIOVASCULAR: Regular S1 S2, s GI: soft, non-tender, normoactive bowel sounds, : No Renal angle tenderness; EXTREMITIES: 2+ edema, no clubbing, MUSCULOSKELETAL: No Joint Tenderness; NEURO: Awake; no lateralizing signs. SKIN: No Rash PSYCH; Normal affect Assessment: 1. Acute congestive heart failure 2. Large bilateral pleural effusions 3. Moderately large pericardial effusion 4. Essential hypertension 5. Obesity 6. Abnormal TSH 7. DVT prophylaxis Recommendations: 1. I have discussed the results of my overview and impressions with the patient 2. Options for management were reviewed Code Visit Inpatient E&M: 79451 Subs Hosp L2
--- NOTE | 2019-01-11 17:06 | PCM.CONS.C ---
Problem List (1) CHF (congestive heart failure) Status: Acute Reason for Consult Date of Consultation: 01/11/19 History of Present Illness: The patient is a 68 year old M past medical history significant essential hypertension who was sent from his PCPs office with shortness of breath. Patient reports progressive shortness of breath over the past couple of weeks. He also did notice increasing swelling involving both lower extremities. He also complains of easy fatigability. He was seen and assessed on his day of admission at his PCPs office patient was felt to be in acute congestive heart failure and subsequently sent to the ED. His diagnosis was confirmed in the ED started on Lasix and admitted to a monitored bed for further management. Patient has noted significant improvement after coming to the hospital. He still has about 2+ lower extremity edema. His shortness of breath has resolved. Next Review of systems: All systems reviewed. All else is negative except that in the HPI. Past Medical History Allergies/Adverse Reactions: Allergies No Known Allergies Allergy (Verified 01/09/19 09:49) Home Medications: Ambulatory Orders Medication Instructions Recorded Furosemide [Lasix] 20 mg PO DAILY 01/09/19 Metoprolol Succinate 200 mg PO DAILY 01/09/19 Past Medical History (Chronic Problems): Chronic Problems Essential (primary) hypertension (Chronic) - *Family History Maternal History Items: - - Mother patient unsure of the cause Paternal History Items: - - Patient not sure of father's cause of Smoking Status: Former smoker Objective: Vital Signs Temp Pulse Resp BP Pulse Ox 98.2 F 87 16 144/84 H 95 01/11/19 15:11 01/11/19 15:19 01/11/19 15:11 01/11/19 15:11 01/11/19 15:11 Oxygen Flow Rate (L/min) 2 Oxygen Delivery Method Room Air Weight: 223 lb 15.834 oz Body Mass Index (BMI) 30.9 Intake and Output for Last 24 Hours 01/09/19 01/10/19 01/11/19 23:59 23:59 23:59 Intake Total 360 / 360 1160 / 1160 300 / 300 Output Total 2250 / 2250 2725 / 2725 300 / 300 Balance -1890 / -1890 -1565 / -1565 0 / 0 General: Awake, Alert, Oriented x 3 HEENT: Atraumatic Oral: Moist Mucosa Neck: Supple Lungs: Clear to auscultation Cardiovascular: Regular Rhythm Abdomen: Soft Extremities: Bilateral Edema +2 Skin: No Rashes Psych/Mental Status: Appropriate 01/11/19 05:38: Sodium 144, Potassium 3.7, Chloride 101, Carbon Dioxide 39.0 H, Anion Gap 4 L, BUN 24 H, Creatinine 0.89, Est GFR (MDRD) Af Amer 109, Est GFR (MDRD) Non-Af 90, BUN/Creatinine Ratio 26.9 H, Glucose 90, Calcium 8.2 L Rhythm: EKG: ECHO: Stress Test: Cardiac Cath: PCI: CT Surgery: Holter monitor: EPS: PPM: CXR: Chest CT Scan: Assessment/Plan 1. Shortness of breath: This appears to be due to decompensated congestive heart failure. Agree with current medical therapy including IV Lasix. Agree with checking a 2D echo. I will also order a spot urine protein/creatinine ratio.
[2019-01-11 21:03] LABS: Protein, Urine (Random) 360.6 mg/dL (<11.9); Protein:Creat Ratio 2711 mg/g CRE (0-200)
[2019-01-12] VITALS (13 sets, daily range): BP systolic 125–145; BP diastolic 71–100; PULSE 80–96; RESP 16–18; TEMP 36.3–36.8; O2SAT 92–98
[2019-01-12 06:40] LABS: Anion Gap 5 (5-15); BUN 23 mg/dL (7-18); BUN/Creat Ratio 26.3 RATIO (10-20); Calcium,Total 8.1 mg/dL (8.5-10.1); Chloride 101 mmol/L (98-107); Creatinine, Serum 0.87 mg/dL (0.70-1.30); EST Glomerular Filtration Rate 92 mL/min (>60); Est Glom Filt Rate - Afr Amer 112 mL/min (>60); Glucose 88 mg/dL (74-106); Potassium 3.7 mmol/L (3.5-5.1); Sodium Level 142 mmol/L (136-145)
[2019-01-12] MEDS: Metoprolol(XL)Succ 200 MG Tablet PO (08:40)
[2019-01-12] MEDS: Furosemide 40 MG/4 ML Vial IV (08:41)
[2019-01-12] MEDS: Enoxaparin 40 MG/0.4 ML Syringe SC (08:41)
[2019-01-12] MEDS: 0.9% NaCl Peripheral Flush Adult/Peds IV (08:42)
--- NOTE | 2019-01-12 15:01 | CASEMGMT ---
Pt does not qualify for home oxygen at this time. Parrish MEJÍA CM
--- NOTE | 2019-01-12 15:14 | PCM.PROGNOTE ---
<Lauryn Vincent - Last Filed: 01/12/19 15:34> Patient Problems: Active and Suspected Problems CHF (congestive heart failure) (Acute) Subjective: Patient seen and examined. Oxygen stable on room air. Denies further shortness of breath. - Physical Exam General: Alert, Oriented x3, Cooperative HEENT: Atraumatic, PERRLA, EOMI, Normocephalic Neck: Supple, No JVD, Negative Carotid Bruits Lungs: Clear to auscultation, Normal air movement Cardiovascular: Regular rate, Regular Rhythm, Normal S1, Normal S2, No murmurs Abdomen: Bowel Sounds Present, Soft, Non Tender, Non-Distended Extremities: No clubbing, No cyanosis, Edema - +1 bilateral lower extremities Skin: No rashes, No breakdown Musculoskeletal: No Tenderness to Palpation of Joints or Extremities Neurological: Cranial nerves II-XII grossly intact, Neuro grossly intact Psych/Mental Status: Normal Affect, Appropriate Vital Signs Temp Pulse Resp BP Pulse Ox 98.2 F 81 18 125/71 H 97 01/12/19 14:45 01/12/19 14:45 01/12/19 14:45 01/12/19 14:45 01/12/19 14:45 Oxygen Flow Rate (L/min) [ 0 AMBULATION with Oxygen] Oxygen Flow Rate (L/min) [At 0 REST on Room Air] Oxygen Flow Rate (L/min) [ 0 AMBULATING on Room Air] Oxygen Flow Rate (L/min) 2 Oxygen Delivery Method Room Air Weight: 224 lb 10.417 oz Body Mass Index (BMI) 30.9 Intake and Output for Last 24 Hours 01/10/19 01/11/19 01/12/19 23:59 23:59 23:59 Intake Total 1160 / 1160 720 / 720 745 / 745 Output Total 2725 / 2725 1350 / 1350 1075 / 1075 Balance -1565 / -1565 -630 / -630 -330 / -330 Laboratory Tests Past 24 Hrs 01/11/19 01/12/19 20:25 05:31 Sodium 142 Potassium 3.7 Chloride 101 Carbon Dioxide 36.0 H Anion Gap 5 BUN 23 H Creatinine 0.87 Estim Creat Clear Calc 89.20 Est GFR (MDRD) Af Amer 112 Est GFR (MDRD) Non-Af 92 BUN/Creatinine Ratio 26.3 H Glucose 88 Calcium 8.1 L U Random Total Protein 360.6 H Urine Creatinine 133.00 Protein/Creatinin Ratio 2711 H Medical Necessity - Tobacco Use Smoking Status: Former smoker Assessment/Plan All Active Problems CHF (congestive heart failure) (Acute) 1. Acute diastolic CHF, large left pleural effusion-no prior history of CHF. BNP 902. CT of chest showed CHF with large bilateral pleural effusions. Moderately large pericardial effusion. IV Lasix. Strict I&O. Daily weight. Cardiology consulted. Echocardiogram demonstrates an EF of 60%, small pericardial effusion and large left pleural effusion. Oxygen now stable on room air. Given large pleural effusion despite diuresis, will obtain thoracentesis with diagnostic labs. Hold a.m. Lovenox. 2. Hypertension-stable, continue home metoprolol regimen. 3. Hypothyroidism-TSH 7.3. T4 normal. T3 1.7. Recommend repeat TSH in 4-6 weeks as outpatient. Will begin low-dose Synthroid 25 mcg daily. 4. Obesity- encouraged diet and lifestyle modifications. DVT prophylaxis-Lovenox subcu This patient was seen by HOLLY Moody under the supervision of Dr. Keita. <Hever Keita F - Last Filed: 01/12/19 15:59> - Physical Exam Vital Signs Temp Pulse Resp BP Pulse Ox 98.2 F 83 18 125/71 H 97 01/12/19 14:45 01/12/19 15:21 01/12/19 14:45 01/12/19 14:45 01/12/19 14:45 Oxygen Flow Rate (L/min) [ 0 AMBULATION with Oxygen] Oxygen Flow Rate (L/min) [At 0 REST on Room Air] Oxygen Flow Rate (L/min) [ 0 AMBULATING on Room Air] Oxygen Flow Rate (L/min) 2 Oxygen Delivery Method Room Air Weight: 224 lb 10.417 oz Body Mass Index (BMI) 30.9 Intake and Output for Last 24 Hours 01/10/19 01/11/19 01/12/19 23:59 23:59 23:59 Intake Total 1160 / 1160 720 / 720 745 / 745 Output Total 2725 / 2725 1350 / 1350 1075 / 1075 Balance -1565 / -1565 -630 / -630 -330 / -330 Laboratory Tests Past 24 Hrs 01/11/19 01/12/19 20:25 05:31 Sodium 142 Potassium 3.7 Chloride 101 Carbon Dioxide 36.0 H Anion Gap 5 BUN 23 H Creatinine 0.87 Estim Creat Clear Calc 89.20 Est GFR (MDRD) Af Amer 112 Est GFR (MDRD) Non-Af 92 BUN/Creatinine Ratio 26.3 H Glucose 88 Calcium 8.1 L U Random Total Protein 360.6 H Urine Creatinine 133.00 Protein/Creatinin Ratio 2711 H Code Visit Addendum: Dr. Keita I personally examined the patient and reviewed the chart. I agree with the above. 68-year-old male with history of diastolic heart failure and acute exacerbation, is currently off oxygen and has tolerated diuresis well. On initial presentation he had bilateral pleural effusions and on his echo obtained showed normal EF with diastolic dysfunction. Though he is asymptomatic he did have very large bilateral pleural effusions on admissions and therefore will obtain a thoracentesis and diagnostic labs. Hold morning Lovenox. Also of note his TSH on admission was 7.33 with a T3 that was 1.7 a free T4 that was 0.8. We will start him on a low-dose oral Synthroid and he can follow-up as an outpatient on discharge with his primary care doctor to evaluate his hypothyroidism. Inpatient E&M: 32846 Subs Hosp L2
--- NOTE | 2019-01-12 17:39 | PCM.PN.CARD ---
Subjectve: Patient is doing well from a cardiac symptom standpoint. He still has lower extremity edema but his shortness of breath has improved significantly. Objective: Vital Signs Temp Pulse Resp BP Pulse Ox 98.2 F 83 18 125/71 H 97 01/12/19 14:45 01/12/19 15:21 01/12/19 14:45 01/12/19 14:45 01/12/19 14:45 Oxygen Flow Rate (L/min) [ 0 AMBULATION with Oxygen] Oxygen Flow Rate (L/min) [At 0 REST on Room Air] Oxygen Flow Rate (L/min) [ 0 AMBULATING on Room Air] Oxygen Flow Rate (L/min) 2 Oxygen Delivery Method Room Air Weight: 224 lb 10.417 oz Body Mass Index (BMI) 30.9 Intake and Output for Last 24 Hours 01/10/19 01/11/19 01/12/19 23:59 23:59 23:59 Intake Total 1160 / 1160 720 / 720 745 / 745 Output Total 2725 / 2725 1350 / 1350 1075 / 1075 Balance -1565 / -1565 -630 / -630 -330 / -330 General: Awake, Alert HEENT: Atraumatic Oral: Moist Mucosa Neck: Supple Lungs: Clear to auscultation, Diminished Marcial Bases Cardiovascular: Regular Rhythm Abdomen: Soft Extremities: Bilateral Edema +2 Skin: No Rashes Psych/Mental Status: Appropriate 01/12/19 05:31: Sodium 142, Potassium 3.7, Chloride 101, Carbon Dioxide 36.0 H, Anion Gap 5, BUN 23 H, Creatinine 0.87, Est GFR (MDRD) Af Amer 112, Est GFR (MDRD) Non-Af 92, BUN/Creatinine Ratio 26.3 H, Glucose 88, Calcium 8.1 L Rhythm: EKG: ECHO: Stress Test: Cardiac Cath: PCI: CT Surgery: Holter monitor: EPS: PPM: CXR: Chest CT Scan: Medical Necessity - Tobacco Use Smoking Status: Former smoker Assessment/Plan 1. Shortness of breath: Patient's echo revealed preserved EF and no evidence of diastolic dysfunction. He does have at least moderate LVH. Patient did have significantly uncontrolled hypertension upon admission. He states that his blood pressure has been running high for at least the last 2 months. Patient also has significant proteinuria. His lower extremity edema, small pericardial effusion and large pleural effusion may also be secondary to his significant proteinuria. Amyloidosis could be considered in the differential diagnosis. I will add an CARLTON inhibitor to see if this will help with this proteinuria as well.
[2019-01-13] VITALS (11 sets, daily range): BP systolic 114–174; BP diastolic 71–100; PULSE 76–90; RESP 16–20; TEMP 36.5–36.8; O2SAT 91–98
--- NOTE | 2019-01-13 | FLU_PTH ---
PATIENT: SHELLEY DOAN LOC: [facility] U#:[id number] AGE/SX: 68/M ROOM: [facility] RE01/09/[address]: Dr. Hever Keita MD : 1950 BED: 1 DIS: 01/15/2019 SPEC #: [id number] RECD: 01/14/19 09:16 STATUS: MARTHA REJavy #: [id number] PRETTY: 01/13/19 00:[address]: Hever Keita DEPT: CYTOLOGY RECD BY: Severo Suarez ENTERED: 01/14/19 09:16 SP TYPE: Fluid OTHR DR: DO Dr. Yimi Brenner Dr., MD Dr. Jordan Garrison, DO Dr. Nagapradee Nagajothi, MD Tissues: THORACIC FLUID Procedures: Special Stain Group II Surgery Specimen Level IV Cytospin Fluid HEADER OPERATION: Ultrasound-guided thoracentesis PRE-OP DIAGNOSIS: Right pleural effusion TISSUE SUBMITTED: Thoracentesis fluid for cytology DIAGNOSIS CYTOLOGY Thoracentesis fluid for cytology (cytospin and cell block): Negative for malignant cells. See comment. AM:obi 01/15/19 COMMENT The specimen contains reactive mesothelial cells and polymorphous lymphocytes. Clinical correlation is suggested. Immunohistochemistry ([id number]) supports the above diagnosis. CYTOLOGY STUDY Slides are reviewed. CYTOLOGY GROSS Received is 55 ml of clear yellow fluid labeled with the patient's name and and designated per the requisition as thoracentesis. Submitted for cytology preparation including cell block. / obi 01/14/19 TC:5 CPT: 77362, 91291
--- NOTE | 2019-01-13 | IMM_PTH ---
PATIENT: SHELLEY DOAN LOC: [facility] U#:[id number] AGE/SX: 68/M ROOM: [facility] RE01/09/[address]: Dr. Hever Keita MD : 1950 BED: 1 DIS: 01/15/2019 SPEC #: [id number] RECD: 01/15/19 12:31 STATUS: MARTHA REJavy #: [id number] PRETTY: 01/13/19 00:[address]: Hever Keiat DEPT: IMMUNOHISTOCHEMISTRY RECD BY: Magnolia Donovan ENTERED: 01/15/19 12:33 SP TYPE: IMMUNO OTHR DR: DO Dr. Yimi Brenner Dr., MD Dr. Jordan Garrison, DO Dr. Nagapradee Nagajothi, MD Tissues: THORACIC FLUID Procedures: Tello Ret (add) CK5-6 (add) TTF1 (add) Pankeratin (initial) PHYSICIAN & [place] [id number] SPECIMEN INFORMATION: Tissue Source: Thoracentesis fluid Clinical Info: Right pleural effusion Specimen Number: [id number] CPT code: 77639, 20973 x3 METHODOLOGY: Deparaffinized sections of prefer/formalin-fixed tissue or PAP/DQ stained slides are incubated with monoclonal/polyclonal antibodies/oligonucleotide probes. Localization is made via biotin free immunoperoxidase method. Appropriate controls are performed and reacted as expected. Results on target cell population are indicated in the following table: RESULTS: ANTIBODY / CLONE RESULT AE1-3 (AE1/AE3/PCK26) positive TTF-1 (8G7G3/1) negative CALRET (polyclonal) positive CK5-6 (D5 & 1684) positive These tests were developed and their performance characteristics determined by [facility]. They may not have been cleared or approved by the U.S. Food and Drug Administration. The FDA has determined that such clearance or approval is not necessary. The above immunohistochemical/dualISH markers are ordered and reviewed by the Pathologist. INTERPRETATION: Thoracentesis fluid: Consistent with reactive mesothelial cells. AM:obi 01/15/19
[2019-01-13] MEDS: Levothyroxine 25 MCG TABLET PO (05:00)
[2019-01-13 07:44] LABS: Hematocrit 49.2 % (40-54); Hemoglobin 15.6 g/dL (13.0-16.5); Mean Corp Hgb Conc 31.7 g/dL (32-36); Mean Corpuscular Hgb 29.9 pg (27.0-32.0); Mean Corpuscular Volume 94.4 fL (80-94); Mean Platelet Vol. 9.8 fl (6.2-12.0); Platelet Count 251 K/mm3 (150-450); RBC Distribution Width CV 13.5 % (11.6-14.6); RBC Distribution Width SD 47.4 fl (35.1-43.9); Red Blood Count 5.21 M/mm3 (4.6-6.2); White Blood Count 10.7 K/mm3 (4.4-11.0)
[2019-01-13 07:55] LABS: International Normalized Ratio 1.1
[2019-01-13 07:56] LABS: Partial Thromboplast Time 28.8 Seconds (24.1-36.2)
[2019-01-13 07:57] LABS: Anion Gap 5 (5-15); BUN 22 mg/dL (7-18); BUN/Creat Ratio 23.7 RATIO (10-20); Calcium,Total 8.3 mg/dL (8.5-10.1); Chloride 101 mmol/L (98-107); Creatinine, Serum 0.93 mg/dL (0.70-1.30); EST Glomerular Filtration Rate 86 mL/min (>60); Est Glom Filt Rate - Afr Amer 104 mL/min (>60); Estimated Creatinine Clearance 83.44 ml/min; Glucose 83 mg/dL (74-106); Potassium 3.9 mmol/L (3.5-5.1); Sodium Level 144 mmol/L (136-145)
[2019-01-13] MEDS: Metoprolol(XL)Succ 200 MG Tablet PO (08:11)
[2019-01-13] MEDS: Lisinopril 5 MG Tablet PO (08:16)
[2019-01-13] MEDS: Furosemide 40 MG/4 ML Vial IV (08:16)
[2019-01-13 11:15] LABS: ALB/GLOB Ratio 0.5 RATIO (0.9-2.4); Globulin 3.4 g/dL (2.2-4.2); LDH 285 U/L (87-241); Protein, Total 5.1 g/dL (6.4-8.2)
--- NOTE | 2019-01-13 13:50 | RAD_ITS ---
STUDY: X-RAY CHEST REASON FOR EXAM: Male, 68 years old. Post thoracentesis TECHNIQUE: 2 AP portable views, inspiration and expiration COMPARISON: 01/09/2019 FINDINGS: EKG leads overlie the chest. Since the previous study, patient has undergone right thoracentesis. There is no postprocedural pneumothorax. Lungs are expanded. Right lung is clear, there is a small left pleural effusion. There is no demonstrated pleural abnormality. Normal size heart. Normal mediastinum and eric. Normal visualized pulmonary arteries. Normal visualized aortic arch and descending thoracic aorta. There are diffuse degenerative changes of the visualized thoracic spine. There is degenerative osteoarthritis of the bilateral shoulders. There is no demonstrated abnormality of the visualized soft tissue structures of the upper abdomen. RAD/Chest Insp/Exp 2 View IMPRESSION: Status post right thoracentesis, no postprocedural pneumothorax Presentation right pleural effusion no longer identified Small left pleural effusion Electronically Signed: Valdemar Rodríguez MD at 14:59 EDT , Service support ,
[2019-01-13 14:10] LABS: Cytology, Body Fluid / CSF SEE PATHOLOGY REPORT
--- NOTE | 2019-01-13 14:22 | CASEMGMT ---
Patient does not have Healthcare POA or Healthcare LW. He is not interested at this time. Manuela LOCKETT MSW
[2019-01-13 14:48] LABS: Body Fluid Mononuclear WBC # 0.079 10^3/uL; Body Fluid Polynuclear WBC # 0.025 10^3/uL; Body Fluid Total Cells Counted 0.119 10^3/ul; White Blood Count/Body Fluid 0.104 10^3/uL
[2019-01-13 14:51] LABS: Appearance/Body Fluid CLEAR; Auto B Fluid Analyzer BKGD Ct COUNTS W/IN LIMITS (W/IN LIMITS); Color/Body Fluid YELLOW; Source- Body Fluid THORACENTESIS
[2019-01-13 14:55] LABS: Red Cell Count/Body Fluid 200 /mm3
[2019-01-13 15:01] LABS: Glucose, Body Fluid 104 mg/dL (40-70); LDH,Body Fluid 68 Units/l (Not Establ.); Protein, Body Fluid 1.2 g/dL (Not Establ.)
[2019-01-13 15:19] LABS: Body Fluid QC Type(s) BF1,BF2; Lymphocytes 27 %; Macrophages 51 %; Neutrophil (Segs) 22 %
--- NOTE | 2019-01-13 15:27 | US_ITS ---
PROCEDURE: ULTRASOUND GUIDED THORACENTESIS. DATE: January 13, 2019. INDICATION: Male, 68 years old. Right pleural effusion. PHYSICIAN: Rory Rosa M.D. PROCEDURE: The risks, benefits, and alternatives to the procedure were explained to the patient. The specific risks of bleeding, infection, and pneumothorax requiring chest tube insertion were discussed and accepted. Written informed consent was obtained. Ultrasonographic evaluation of the right lower pleural space was carried out. An adequate pocket was identified. The patient was placed in the sitting, upright position. The overlying skin was prepped and draped in sterile fashion. 1% lidocaine was administered subcutaneously for local anesthesia. Under ultrasound guidance, a 5 English thoracentesis needle/catheter system was advanced into the right posterior lower pleural fluid collection. Approximately 1920 mL of kai-colored fluid was drained. The catheter was removed, and a sterile dressing was applied. A specimen was collected and sent to the laboratory for analysis, as requested by the referring clinician. The patient tolerated the procedure well. A chest x-ray was ordered. US/Thoracentesis W US IMPRESSION: Ultrasound-guided right thoracentesis. Electronically Signed: Rory Rosa, at 14:13 EDT , Service support ,
--- NOTE | 2019-01-13 15:32 | PCM.DC ---
- Discharge Diagnoses Current Active Problems: Current Active and Chronic Problems CHF (congestive heart failure) (Acute) Essential (primary) hypertension (Chronic) You will use the following diet at home:: Cardiac Discharge Activity: Return to Normal Activity Call your doctor if you observe: Shortness of breath, Dizziness, Fainting spells, Chest pain Allergies/Adverse Reactions: Allergies No Known Allergies Allergy (Verified 01/09/19 09:49) Medications to take at Discharge Metoprolol Succinate 200 mg PO DAILY 01/09/19 Furosemide 40 mg PO DAILY #30 tab 01/13/19 Levothyroxine [Synthroid] 25 mcg PO DAILY@0600 #30 tab 01/13/19 Lisinopril [Zestril] 5 mg PO DAILY #30 tab 01/13/19 The following prescriptions were given: Furosemide 40 mg PO DAILY #30 tab Transmission Status: Pending to [facility] Levothyroxine [Synthroid] 25 mcg PO DAILY@0600 #30 tab Transmission Status: Pending to [facility] Lisinopril [Zestril] 5 mg PO DAILY #30 tab Transmission Status: Pending to [facility] Primary Care Physician: Gerry Pate DO [Primary Care Provider] - Please follow up with your Primary Care Physician in: 1 Week Test Results: Test results from this visit will be discussed in further detail at your follow-up appointment, if applicable. Please Follow Up With: Yovany Whitley MD When: 1 Week Proposed Discharge Date: 01/13/19
--- NOTE | 2019-01-13 15:52 | PCM.DC.SUM ---
<Lauryn Vincent - Last Filed: 01/13/19 16:15> Discharge Date and Diagnosis Date of Admission: 01/09/19 Date of Discharge: 01/13/19 - Primary Discharge Diagnosis Active and Suspected Problems 1. Acute diastolic CHF, large left transudative pleural effusion 2. Hypertension 3. Hypothyroidism 4. Obesity - Secondary Discharge Diagnosis Chronic Problems Essential (primary) hypertension (Chronic) Hospital Course and Treatment Imaging Results: Diagnostic Data Chest CTA 01/09/19 10:45 IMPRESSION: 1. No CTA demonstrated pulmonary embolism or arterial dissection. 2. Findings suggest congestive heart failure with large bilateral pleural effusions, bilateral compressive atelectasis and possible airspace disease. 3. Moderately large pericardial effusion. Electronically Signed: Elba Clark MD at 11:43 EDT , Service support , Chest X-Ray 01/13/19 13:50 IMPRESSION: Status post right thoracentesis, no postprocedural pneumothorax Presentation right pleural effusion no longer identified Small left pleural effusion Electronically Signed: Valdemar Rodríguez MD at 14:59 EDT , Service support , Thoracentesis Ultrasound 01/13/19 15:27 IMPRESSION: Ultrasound-guided right thoracentesis. Electronically Signed: Rory Rosa at 14:13 EDT , Service support , Dr. Whitley- cardiology Operations: None Procedures: 2-D Echocardiogram, Thoracentesis Summary of Care Provided: The patient is a 68 year old M admitted 01/09/19 shortness of breath. 1. Acute diastolic CHF, large left pleural effusion-no prior history of CHF. BNP 902. CT of chest showed CHF with large bilateral pleural effusions. Moderately large pericardial effusion. Cardiology consulted during admission. Echocardiogram demonstrates an EF of 60%, small pericardial effusion and large left pleural effusion. Patient underwent thoracentesis 01/13/19 with 1920 mL of kai-colored fluid. Initial fluid studies appear transudative in nature. Culture and cytology pending. Cardiology feels amyloidosis should be ruled out. Patient with significant proteinuria. He was started on lisinopril 5mg daily. Discharge on Lasix p.o. 40 mg daily. Follow-up with cardiology in 1 week. Follow-up with primary care provider in 1 week. 2. Hypertension-stable, continue home metoprolol regimen. Initiated on lisinopril as noted above. 3. Hypothyroidism-TSH 7.3. T4 normal. T3 1.7. Recommend repeat TSH in 4-6 weeks as outpatient. Will begin low-dose Synthroid 25 mcg daily. 4. Obesity- encouraged diet and lifestyle modifications. General: Alert, Oriented x3, Cooperative HEENT: Atraumatic, PERRLA, EOMI, Normocephalic Neck: Supple, No JVD, Negative Carotid Bruits Lungs: Clear to auscultation, Normal air movement Cardiovascular: Regular rate, Regular Rhythm, Normal S1, Normal S2, No murmurs Abdomen: Bowel Sounds Present, Soft, Non Tender, Non-Distended Extremities: No clubbing, No cyanosis, Edema - +1 bilateral lower extremities Skin: No rashes, No breakdown Musculoskeletal: No Tenderness to Palpation of Joints or Extremities Neurological: Cranial nerves II-XII grossly intact, Neuro grossly intact Psych/Mental Status: Normal Affect, Appropriate Patient seen and examined prior to discharge. Physical assessment as noted above. Patient is stable for discharge with follow up recommendations as noted above. This patient was seen by HOLLY Moody under the supervision of Dr. Keita. - Physical Exam Vital Signs Temp Pulse Resp BP Pulse Ox 98.2 F 77 16 129/76 H 95 01/13/19 14:15 01/13/19 15:40 01/13/19 14:15 01/13/19 14:15 01/13/19 14:15 Oxygen Flow Rate (L/min) [ 0 AMBULATION with Oxygen] Oxygen Flow Rate (L/min) [At 0 REST on Room Air] Oxygen Flow Rate (L/min) [ 0 AMBULATING on Room Air] Oxygen Flow Rate (L/min) 2 Oxygen Delivery Method [3] Room Air Oxygen Delivery Method [2] Room Air Oxygen Delivery Method [1 ( Room Air Initial Baseline)] Oxygen Delivery Method Room Air Weight: 223 lb 12.307 oz Body Mass Index (BMI) 30.9 Intake and Output for Last 24 Hours 01/11/19 01/12/19 01/13/19 23:59 23:59 23:59 Intake Total 720 / 720 1560 / 1560 360 / 360 Output Total 1350 / 1350 1550 / 1550 1450 / 1450 Balance -630 / -630 -1090 / -1090 Microbiology Past 72 Hours 01/13/19 13:40 Gram Stain - Preliminary Fluid - Thoracentesis Fluid Laboratory Tests Past 24 Hrs 01/13/19 01/13/19 01/13/19 05:25 05:35 05:35 WBC 10.7 RBC 5.21 Hgb 15.6 Hct 49.2 MCV 94.4 H MCH 29.9 MCHC 31.7 L RDW Std Deviation 47.4 H RDW Coeff of Babita 13.5 Plt Count 251 MPV 9.8 PT 14.0 INR 1.1 APTT 28.8 Sodium Potassium Chloride Carbon Dioxide Anion Gap BUN Creatinine Estim Creat Clear Calc Est GFR (MDRD) Af Amer Est GFR (MDRD) Non-Af BUN/Creatinine Ratio Glucose Calcium Lactate Dehydrogenase 285 H Total Protein 5.1 L Globulin 3.4 Albumin/Globulin Ratio 0.5 L Fluid Source Fluid Color Fluid Appearance Fluid pH Fluid WBC Fluid RBC Fluid Tot Cell Count Fld Polynuclear WBCs # Fld Polynuclear WBCs % Fluid Mononuclear WBCs Fld Mononuclear WBCs % Fluid Neutrophils Fluid Lymphocytes Fluid Macrophages Fl Pathologist Comment Fluid Glucose Fluid Total Protein Fluid LDH Fluid Comment 2 Miscellaneous Cytology 01/13/19 01/13/19 01/13/19 05:35 13:40 13:40 WBC RBC Hgb Hct MCV MCH MCHC RDW Std Deviation RDW Coeff of Babita Plt Count MPV PT INR APTT Sodium 144 Potassium 3.9 Chloride 101 Carbon Dioxide 38.0 H Anion Gap 5 BUN 22 H Creatinine 0.93 Estim Creat Clear Calc 83.44 Est GFR (MDRD) Af Amer 104 Est GFR (MDRD) Non-Af 86 BUN/Creatinine Ratio 23.7 H Glucose 83 Calcium 8.3 L Lactate Dehydrogenase Total Protein Globulin Albumin/Globulin Ratio Fluid Source Fluid Color Fluid Appearance Fluid pH Pending Fluid WBC Fluid RBC Fluid Tot Cell Count Fld Polynuclear WBCs # Fld Polynuclear WBCs % Fluid Mononuclear WBCs Fld Mononuclear WBCs % Fluid Neutrophils Fluid Lymphocytes Fluid Macrophages Fl Pathologist Comment Fluid Glucose 104 H Fluid Total Protein 1.2 Fluid LDH 68 Fluid Comment 2 Miscellaneous Cytology 01/13/19 01/13/19 13:40 13:40 WBC RBC Hgb Hct MCV MCH MCHC RDW Std Deviation RDW Coeff of Babita Plt Count MPV PT INR APTT Sodium Potassium Chloride Carbon Dioxide Anion Gap BUN Creatinine Estim Creat Clear Calc Est GFR (MDRD) Af Amer Est GFR (MDRD) Non-Af BUN/Creatinine Ratio Glucose Calcium Lactate Dehydrogenase Total Protein Globulin Albumin/Globulin Ratio Fluid Source THORACENTESIS Fluid Color YELLOW Fluid Appearance CLEAR Fluid pH Fluid WBC 0.104 Fluid RBC 200 Fluid Tot Cell Count 0.119 Fld Polynuclear WBCs # 0.025 Fld Polynuclear WBCs % 24.0 Fluid Mononuclear WBCs 0.079 Fld Mononuclear WBCs % 76.0 Fluid Neutrophils 22 Fluid Lymphocytes 27 Fluid Macrophages 51 Fl Pathologist Comment May follow Fluid Glucose Fluid Total Protein Fluid LDH Fluid Comment 2 SEE COMMENT Miscellaneous Cytology Pending Discharge Diet: Low fat/ Low Cholesterol, 8 Cup Fluid Restriciton, 2000 mg Sodium Diet Discharge Activity: Return to Normal Activity Call your doctor if you observe: Shortness of breath, Dizziness, Fainting spells, Chest pain Home Medications: Medications to take at Discharge Metoprolol Succinate 200 mg PO DAILY 01/09/19 Furosemide 40 mg PO DAILY #30 tab 01/13/19 Levothyroxine [Synthroid] 25 mcg PO DAILY@0600 #30 tab 01/13/19 Lisinopril [Zestril] 5 mg PO DAILY #30 tab 01/13/19 Following Prescrptions Were Given to Patient: Furosemide 40 mg PO DAILY #30 tab Transmission Status: Received by [facility] Levothyroxine [Synthroid] 25 mcg PO DAILY@0600 #30 tab Transmission Status: Received by [facility] Lisinopril [Zestril] 5 mg PO DAILY #30 tab Transmission Status: Received by [facility] Primary Care Physician: Gerry Pate DO [Primary Care Provider] - Please follow up with your Primary Care Physician in: 1 Week Please Follow Up With: Yovany Whitley MD When: 1 Week Disposition: Home Minutes spent on discharge:: 35 Patient Condition:: Stable Medical Necessity - Tobacco Use Smoking Status: Former smoker Meaningful Use Info Meaningful Use Diagnoses (Choose all that apply): CHF - CHF CARLTON/ARB ordered at discharge?: Yes Documented LVEF (%): 60 <Hever Keita F - Last Filed: 01/15/19 15:12> Discharge Date and Diagnosis - Primary Discharge Diagnosis Active and Suspected Problems Anasarca (Acute) Pleural effusion (Acute) Proteinuria (Acute) - Secondary Discharge Diagnosis Chronic Problems Essential (primary) hypertension (Chronic) Hospital Course and Treatment Summary of Care Provided: The patient is a 68 year old M [] - Physical Exam Vital Signs Temp Pulse Resp BP Pulse Ox 98.2 F 86 14 127/75 H 94 01/15/19 09:05 01/15/19 11:08 01/15/19 09:05 01/15/19 09:05 01/15/19 09:05 Oxygen Flow Rate (L/min) [ 0 AMBULATION with Oxygen] Oxygen Flow Rate (L/min) [At 0 REST on Room Air] Oxygen Flow Rate (L/min) [ 0 AMBULATING on Room Air] Oxygen Flow Rate (L/min) 2 Oxygen Delivery Method [3] Room Air Oxygen Delivery Method [2] Room Air Oxygen Delivery Method [1 ( Room Air Initial Baseline)] Oxygen Delivery Method Room Air Weight: 221 lb 1.978 oz Body Mass Index (BMI) 30.9 Intake and Output for Last 24 Hours 01/13/19 01/14/19 01/15/19 23:59 23:59 23:59 Intake Total 1170 / 1170 977 / 977 480 / 480 Output Total 1900 / 1900 1150 / 1150 1075 / 1075 Balance -730 / -730 -173 / -173 -595 / -595 Microbiology Past 72 Hours 01/13/19 13:40 Gram Stain - Final Fluid - Thoracentesis Fluid Body Fluid Culture - Preliminary No growth-Final to follow Anaerobic Culture - Preliminary No growth in 48 hours. Laboratory Tests Past 24 Hrs 01/15/19 01/15/19 05:40 13:20 Total Protein (PEP) Pending Albumin (PEP) Pending Globulin (PEP) Pending Albumin/Globulin (PEP) Pending [id number] Pending [id number] Pending Beta Globulins Pending Gamma Globulins Pending M-Fredy Pending Ur Total Protein 24 Hr Pending Urine Total Protein Pending Urine Albumin Pending U [id number] Pending U [id number] Pending U Beta Globulin Pending U Gamma Globulin Pending Code Visit Addendum: Dr. Keita I personally examined the patient and reviewed the chart. I agree with the above. 68-year-old male with history of diastolic heart failure acute exacerbation presented with shortness of breath. He had a CT of his chest which demonstrated very large right pleural effusion. He also had an echo which demonstrated the same thing therefore he underwent a thoracentesis and had 2 L removed. The fluid is transudate of in nature. Given his significant proteinuria nephrology was consulted and recommended electrophoresis of his urine as well as a 24-hour urine collection. He was to go for a kidney biopsy today however the CT scan machine is down and therefore we could not proceed with the procedure. He completed his 24-hour urine collection today at around 115 and was asked to be discharged as soon as possible. He is to follow-up with nephrology as well as cardiology as an outpatient. He is to continue with diuresis with his Lasix. General: Alert, Oriented x3, Cooperative, No apparent distress HEENT: Atraumatic, PERRLA, EOMI, Normocephalic Oral: Moist Mucosa Neck: Supple, No JVD Lungs: Clear to auscultation, Normal air movement, No rhonchi, No wheeze, No rales Cardiovascular: Regular rate, Regular Rhythm, Normal S1, Normal S2, No murmurs Abdomen: Soft, Non Tender, Non-Distended, No Hepato-splenomegaly Extremities: No edema, Capillary Refill Less than 3 Seconds Skin: No rashes, No breakdown Neurological: Neuro grossly intact, Sensory exam intact to light touch and pain Psych/Mental Status: Normal Affect, Appropriate Inpatient E&M: [id number] Disch Hosp
--- NOTE | 2019-01-13 16:16 | PN_ITS ---
<Lauryn Vincent - Last Filed: 01/13/19 16:20> Subjective: Patient seen and examined. Denies shortness of breath. Underwent thoracentesis today with 1.9 L fluid removed. - Physical Exam General: Alert, Oriented x3, Cooperative HEENT: Atraumatic, PERRLA, EOMI, Normocephalic Neck: Supple, No JVD, Negative Carotid Bruits Lungs: Clear to auscultation, Diminished Cardiovascular: Regular rate, Regular Rhythm, Normal S1, Normal S2, No murmurs Abdomen: Bowel Sounds Present, Soft, Non Tender, Non-Distended Extremities: No clubbing, No cyanosis, No edema, Capillary Refill Less than 3 Seconds Skin: No rashes, No breakdown Musculoskeletal: No Tenderness to Palpation of Joints or Extremities Neurological: Cranial nerves II-XII grossly intact, Neuro grossly intact Psych/Mental Status: Normal Affect, Appropriate Vital Signs Temp Pulse Resp BP Pulse Ox 98.2 F 77 16 129/76 H 95 01/13/19 14:15 01/13/19 15:40 01/13/19 14:15 01/13/19 14:15 01/13/19 14:15 Oxygen Flow Rate (L/min) [ 0 AMBULATION with Oxygen] Oxygen Flow Rate (L/min) [At 0 REST on Room Air] Oxygen Flow Rate (L/min) [ 0 AMBULATING on Room Air] Oxygen Flow Rate (L/min) 2 Oxygen Delivery Method [3] Room Air Oxygen Delivery Method [2] Room Air Oxygen Delivery Method [1 ( Room Air Initial Baseline)] Oxygen Delivery Method Room Air Weight: 223 lb 12.307 oz Body Mass Index (BMI) 30.9 Intake and Output for Last 24 Hours 01/11/19 01/12/19 01/13/19 23:59 23:59 23:59 Intake Total 720 / 720 1560 / 1560 360 / 360 Output Total 1350 / 1350 1550 / 1550 1450 / 1450 Balance -630 / -630 -1090 / -1090 Microbiology Past 72 Hours 01/13/19 13:40 Gram Stain - Preliminary Fluid - Thoracentesis Fluid Laboratory Tests Past 24 Hrs 01/13/19 01/13/19 01/13/19 05:25 05:35 05:35 WBC 10.7 RBC 5.21 Hgb 15.6 Hct 49.2 MCV 94.4 H MCH 29.9 MCHC 31.7 L RDW Std Deviation 47.4 H RDW Coeff of Babita 13.5 Plt Count 251 MPV 9.8 PT 14.0 INR 1.1 APTT 28.8 Sodium Potassium Chloride Carbon Dioxide Anion Gap BUN Creatinine Estim Creat Clear Calc Est GFR (MDRD) Af Amer Est GFR (MDRD) Non-Af BUN/Creatinine Ratio Glucose Calcium Lactate Dehydrogenase 285 H Total Protein 5.1 L Globulin 3.4 Albumin/Globulin Ratio 0.5 L Fluid Source Fluid Color Fluid Appearance Fluid pH Fluid WBC Fluid RBC Fluid Tot Cell Count Fld Polynuclear WBCs # Fld Polynuclear WBCs % Fluid Mononuclear WBCs Fld Mononuclear WBCs % Fluid Neutrophils Fluid Lymphocytes Fluid Macrophages Fl Pathologist Comment Fluid Glucose Fluid Total Protein Fluid LDH Fluid Comment 2 Miscellaneous Cytology 01/13/19 01/13/19 01/13/19 05:35 13:40 13:40 WBC RBC Hgb Hct MCV MCH MCHC RDW Std Deviation RDW Coeff of Babita Plt Count MPV PT INR APTT Sodium 144 Potassium 3.9 Chloride 101 Carbon Dioxide 38.0 H Anion Gap 5 BUN 22 H Creatinine 0.93 Estim Creat Clear Calc 83.44 Est GFR (MDRD) Af Amer 104 Est GFR (MDRD) Non-Af 86 BUN/Creatinine Ratio 23.7 H Glucose 83 Calcium 8.3 L Lactate Dehydrogenase Total Protein Globulin Albumin/Globulin Ratio Fluid Source Fluid Color Fluid Appearance Fluid pH Pending Fluid WBC Fluid RBC Fluid Tot Cell Count Fld Polynuclear WBCs # Fld Polynuclear WBCs % Fluid Mononuclear WBCs Fld Mononuclear WBCs % Fluid Neutrophils Fluid Lymphocytes Fluid Macrophages Fl Pathologist Comment Fluid Glucose 104 H Fluid Total Protein 1.2 Fluid LDH 68 Fluid Comment 2 Miscellaneous Cytology 01/13/19 01/13/19 13:40 13:40 WBC RBC Hgb Hct MCV MCH MCHC RDW Std Deviation RDW Coeff of Babita Plt Count MPV PT INR APTT Sodium Potassium Chloride Carbon Dioxide Anion Gap BUN Creatinine Estim Creat Clear Calc Est GFR (MDRD) Af Amer Est GFR (MDRD) Non-Af BUN/Creatinine Ratio Glucose Calcium Lactate Dehydrogenase Total Protein Globulin Albumin/Globulin Ratio Fluid Source THORACENTESIS Fluid Color YELLOW Fluid Appearance CLEAR Fluid pH Fluid WBC 0.104 Fluid RBC 200 Fluid Tot Cell Count 0.119 Fld Polynuclear WBCs # 0.025 Fld Polynuclear WBCs % 24.0 Fluid Mononuclear WBCs 0.079 Fld Mononuclear WBCs % 76.0 Fluid Neutrophils 22 Fluid Lymphocytes 27 Fluid Macrophages 51 Fl Pathologist Comment May follow Fluid Glucose Fluid Total Protein Fluid LDH Fluid Comment 2 SEE COMMENT Miscellaneous Cytology Pending Medical Necessity - Tobacco Use Smoking Status: Former smoker Assessment/Plan All Active Problems CHF (congestive heart failure) (Acute) 1. Acute diastolic CHF, large left pleural effusion-no prior history of CHF. BNP 902. CT of chest showed CHF with large bilateral pleural effusions. Mode rately large pericardial effusion. Cardiology consulted during admission. Echocardiogram demonstrates an EF of 60%, small pericardial effusion and large left pleural effusion. Patient underwent thoracentesis 01/13/19 with 1920 mL of kai-colored fluid. Initial fluid studies appear transudative in nature. Culture and cytology pending. Cardiology feels amyloidosis should be ruled out. Patient with significant proteinuria. He was started on lisinopril 5mg daily. Continue IV Lasix 40 mg daily today with plans to transition to oral Lasix tomorrow. Patient will need outpatient follow-up with cardiology at discharge. Anticipate discharge home tomorrow. 2. Hypertension-stable, continue home metoprolol regimen. Initiated on lisinopril as noted above. 3. Hypothyroidism-TSH 7.3. T4 normal. T3 1.7. Recommend repeat TSH in 4-6 weeks as outpatient. Will begin low-dose Synthroid 25 mcg daily. 4. Obesity- encouraged diet and lifestyle modifications. DVT prophylaxis-Lovenox subcu This patient was seen by HOLLY Moody under the supervision of Dr. Keita. <Hever Keita F - Last Filed: 01/13/19 18:06> - Physical Exam Vital Signs Temp Pulse Resp BP Pulse Ox 98.2 F 77 16 129/76 H 95 01/13/19 14:15 01/13/19 15:40 01/13/19 14:15 01/13/19 14:15 01/13/19 14:15 Oxygen Flow Rate (L/min) [ 0 AMBULATION with Oxygen] Oxygen Flow Rate (L/min) [At 0 REST on Room Air] Oxygen Flow Rate (L/min) [ 0 AMBULATING on Room Air] Oxygen Flow Rate (L/min) 2 Oxygen Delivery Method [3] Room Air Oxygen Delivery Method [2] Room Air Oxygen Delivery Method [1 ( Room Air Initial Baseline)] Oxygen Delivery Method Room Air Weight: 223 lb 12.307 oz Body Mass Index (BMI) 30.9 Intake and Output for Last 24 Hours 01/11/19 01/12/19 01/13/19 23:59 23:59 23:59 Intake Total 720 / 720 1560 / 1560 840 / 840 Output Total 1350 / 1350 1550 / 1550 1750 / 1750 Balance -630 / -630 -910 / -910 Microbiology Past 72 Hours 01/13/19 13:40 Gram Stain - Preliminary Fluid - Thoracentesis Fluid Laboratory Tests Past 24 Hrs 01/13/19 01/13/19 01/13/19 05:25 05:35 05:35 WBC 10.7 RBC 5.21 Hgb 15.6 Hct 49.2 MCV 94.4 H MCH 29.9 MCHC 31.7 L RDW Std Deviation 47.4 H RDW Coeff of Babita 13.5 Plt Count 251 MPV 9.8 PT 14.0 INR 1.1 APTT 28.8 Sodium Potassium Chloride Carbon Dioxide Anion Gap BUN Creatinine Estim Creat Clear Calc Est GFR (MDRD) Af Amer Est GFR (MDRD) Non-Af BUN/Creatinine Ratio Glucose Calcium Lactate Dehydrogenase 285 H Total Protein 5.1 L Globulin 3.4 Albumin/Globulin Ratio 0.5 L Fluid Source Fluid Color Fluid Appearance Fluid pH Fluid WBC Fluid RBC Fluid Tot Cell Count Fld Polynuclear WBCs # Fld Polynuclear WBCs % Fluid Mononuclear WBCs Fld Mononuclear WBCs % Fluid Neutrophils Fluid Lymphocytes Fluid Macrophages Fl Pathologist Comment Fluid Glucose Fluid Total Protein Fluid LDH Fluid Comment 2 Miscellaneous Cytology 01/13/19 01/13/19 01/13/19 05:35 13:40 13:40 WBC RBC Hgb Hct MCV MCH MCHC RDW Std Deviation RDW Coeff of Babita Plt Count MPV PT INR APTT Sodium 144 Potassium 3.9 Chloride 101 Carbon Dioxide 38.0 H Anion Gap 5 BUN 22 H Creatinine 0.93 Estim Creat Clear Calc 83.44 Est GFR (MDRD) Af Amer 104 Est GFR (MDRD) Non-Af 86 BUN/Creatinine Ratio 23.7 H Glucose 83 Calcium 8.3 L Lactate Dehydrogenase Total Protein Globulin Albumin/Globulin Ratio Fluid Source Fluid Color Fluid Appearance Fluid pH Pending Fluid WBC Fluid RBC Fluid Tot Cell Count Fld Polynuclear WBCs # Fld Polynuclear WBCs % Fluid Mononuclear WBCs Fld Mononuclear WBCs % Fluid Neutrophils Fluid Lymphocytes Fluid Macrophages Fl Pathologist Comment Fluid Glucose 104 H Fluid Total Protein 1.2 Fluid LDH 68 Fluid Comment 2 Miscellaneous Cytology 01/13/19 01/13/19 13:40 13:40 WBC RBC Hgb Hct MCV MCH MCHC RDW Std Deviation RDW Coeff of Babita Plt Count MPV PT INR APTT Sodium Potassium Chloride Carbon Dioxide Anion Gap BUN Creatinine Estim Creat Clear Calc Est GFR (MDRD) Af Amer Est GFR (MDRD) Non-Af BUN/Creatinine Ratio Glucose Calcium Lactate Dehydrogenase Total Protein Globulin Albumin/Globulin Ratio Fluid Source THORACENTESIS Fluid Color YELLOW Fluid Appearance CLEAR Fluid pH Fluid WBC 0.104 Fluid RBC 200 Fluid Tot Cell Count 0.119 Fld Polynuclear WBCs # 0.025 Fld Polynuclear WBCs % 24.0 Fluid Mononuclear WBCs 0.079 Fld Mononuclear WBCs % 76.0 Fluid Neutrophils 22 Fluid Lymphocytes 27 Fluid Macrophages 51 Fl Pathologist Comment May follow Fluid Glucose Fluid Total Protein Fluid LDH Fluid Comment 2 SEE COMMENT Miscellaneous Cytology Pending Code Visit Addendum: Dr. Keita I personally examined the patient and reviewed the chart. I agree with the above. 68-year-old male with a history of diastolic heart failure in acute exacerbation, is currently off oxygen and tolerating diuresis very well. His echo from the was read with continued pleural effusion, and given the evidence on his CT scan even though he was asymptomatic we still proceeded with a paracentesis. He had 1.9 L removed from his right lung today which was sent for fluid analysis. I discussed with him the option of going home today however he felt more comfortable staying with discharge tomorrow. He does have an elevated urine protein and will need to see nephrology as an outpatient, though his creatinine is normal. Recommend continue with diuresis on discharge and nephrology as well as cardiology follow-up. Inpatient E&M: [id number] Subs Hosp L2
--- NOTE | 2019-01-13 17:10 | PN.CARD_ITS ---
Subjectve: Patient feels better after the thoracentesis. Denies any shortness of breath. Objective: Vital Signs Temp Pulse Resp BP Pulse Ox 98.2 F 77 16 129/76 H 95 01/13/19 14:15 01/13/19 15:40 01/13/19 14:15 01/13/19 14:15 01/13/19 14:15 Oxygen Flow Rate (L/min) [ 0 AMBULATION with Oxygen] Oxygen Flow Rate (L/min) [At 0 REST on Room Air] Oxygen Flow Rate (L/min) [ 0 AMBULATING on Room Air] Oxygen Flow Rate (L/min) 2 Oxygen Delivery Method [3] Room Air Oxygen Delivery Method [2] Room Air Oxygen Delivery Method [1 ( Room Air Initial Baseline)] Oxygen Delivery Method Room Air Weight: 223 lb 12.307 oz Body Mass Index (BMI) 30.9 Intake and Output for Last 24 Hours 01/11/19 01/12/19 01/13/19 23:59 23:59 23:59 Intake Total 720 / 720 1560 / 1560 360 / 360 Output Total 1350 / 1350 1550 / 1550 1450 / 1450 Balance -630 / -630 -1090 / -1090 General: Awake, Alert, Oriented x 3 HEENT: Atraumatic Oral: Moist Mucosa Neck: Supple Lungs: Clear to auscultation Cardiovascular: Regular Rhythm Abdomen: Soft Extremities: Bilateral Edema +1 Skin: No Rashes Psych/Mental Status: Appropriate 01/13/19 05:35: WBC 10.7, RBC 5.21, Hgb 15.6, Hct 49.2, MCV 94.4 H, MCH 29.9, MCHC 31.7 L, Plt Count 251, MPV 9.8 01/13/19 05:35: PT 14.0, INR 1.1, APTT 28.8 01/13/19 05:35: Sodium 144, Potassium 3.9, Chloride 101, Carbon Dioxide 38.0 H, Anion Gap 5, BUN 22 H, Creatinine 0.93, Est GFR (MDRD) Af Amer 104, Est GFR (MDRD) Non-Af 86, BUN/Creatinine Ratio 23.7 H, Glucose 83, Calcium 8.3 L Rhythm: EKG: ECHO: Stress Test: Cardiac Cath: PCI: CT Surgery: Holter monitor: EPS: PPM: CXR: Chest CT Scan: Medical Necessity - Tobacco Use Smoking Status: Former smoker Assessment/Plan 1. Shortness of breath: Patient's echo revealed preserved EF and no evidence of diastolic dysfunction. He does have at least moderate LVH. Patient did have significantly uncontrolled hypertension upon admission. He states that his blood pressure has been running high for at least the last 2 months. Patient also has significant proteinuria. His lower extremity edema, small pericardial effusion and large pleural effusion may also be secondary to his significant proteinuria. Amyloidosis could be considered in the differential diagnosis. I will add an CARLTON inhibitor to see if this will help with this proteinuria as well. From a cardiac standpoint patient could be discharged home. However I would recommend renal consult for work-up for his proteinuria and also to consider renal biopsy if felt to be clinically indicated by the application development liaison. Patient can follow-up with us in 1 to 2 weeks.
[2019-01-14] VITALS (12 sets, daily range): BP systolic 102–131; BP diastolic 59–79; PULSE 77–92; RESP 16–23; TEMP 36.5–37.1; O2SAT 93–98
--- NOTE | 2019-01-14 01:12 | NURSING ---
Nursing rounds late due to this RN being in [employer].
[2019-01-14] MEDS: Levothyroxine 25 MCG TABLET PO (05:51)
[2019-01-14] MEDS: Furosemide 40 MG/4 ML Vial IV (09:53)
[2019-01-14] MEDS: Enoxaparin 40 MG/0.4 ML Syringe SC (09:53)
[2019-01-14] MEDS: Lisinopril 5 MG Tablet PO (09:54)
[2019-01-14] MEDS: Metoprolol(XL)Succ 200 MG Tablet PO (09:54)
--- NOTE | 2019-01-14 12:22 | US_ITS ---
STUDY: RENAL ULTRASOUND - COMPLETE REASON FOR EXAM: Male, 68 years old. Size and symmetry TECHNIQUE: Ultrasound evaluation of the kidneys was performed with real-time and static self-scale imaging. COMPARISON: None. FINDINGS: RIGHT KIDNEY: Normal location of the right kidney, which is normal in size. The right kidney measures 12.4 x 6.4 x 6.3 cm. There is a normal cortex of the right kidney. The renal cortex measures 1.7 cm. There is no right renal mass or cyst. There are no right renal calculi. There is no right hydronephrosis. DISTAL RIGHT URETER: There is non-visualization of the distal right ureter. LEFT KIDNEY: Normal location of the left kidney, which is normal in size. The left kidney measures 12.6 x 6.0 x 6.3 cm. There is a normal cortex of the left kidney. The renal cortex measures 2.5 cm. There is no left renal mass or cyst. There are no left renal calculi. There is no left hydronephrosis. DISTAL LEFT URETER: There is non-visualization of the distal left ureter. BLADDER: The distended urinary bladder has a volume of 79 ml. There is a normal wall thickness of the distended urinary bladder. There is no demonstrated mass within the urinary bladder. There are no demonstrated bladder calculi. US/Kidney and Bladder IMPRESSION: Normal ultrasound of the kidneys and urinary bladder. Electronically Signed: Wilberto Villanueva DO at 18:04 EDT Tel [phone], Service support ,
--- NOTE | 2019-01-14 13:11 | CON.PCM_ITS ---
Consultation - Renal 01/14/19 PCP/ Referring MD: Requesting physician: Royce Keita Primary care physician: Gerry Pate DO Reason for Consultation:: proteinuria, anasarca - History of Present Illness History of Present Illness: The patient is a 68 year old M with known hypertensive disease admitted for increased shortness of breath, edema, and weakness after he was seen in his PCP office. He had increased edema past 2 weeks prior to admission. He noticed the swelling few months ago with foamy urine. Denies chest pain, fever, or chills. Denied hematuria, arthralgias, skin rash. He was on a water pill at home but couldn't recall the name of the medication. He is on antihypertensive medications but could not recall the names of the medications. During his hospitalization he was started on iv lasix. Edema is improved but still remains edematous. CTA chest showed bilateral pleural effusion and underwent thoracentesis. He had a urine protein/cr ratio that revealed 2.7g/gCr protein. He denies diabetes, malignancy, or heart disease. BP has been labile. - Allergies Allergies: Allergies No Known Allergies Allergy (Verified 01/09/19 09:49) - Current Medications Current Medications: Current Medications Acetaminophen (Tylenol) 650 mg PO Q6H PRN PRN PRN Reason: Pain Score 1-3/Temp > 100.7 F Al Hydroxide/Mg Hydroxide (Mylanta Ii) 30 ml PO Q6H PRN PRN PRN Reason: Gastric Burning Albuterol Sulfate (Ventolin Aerosols) 2.5 mg INHALATION Q2H PRN PRN PRN Reason: SOB/Wheezing Furosemide (Lasix) 40 mg IV DAILY [facility] Last Admin: 01/14/19 09:53 Dose: 40 mg Documented by: Levothyroxine Sodium (Synthroid) 25 mcg PO DAILY@0600 [facility] Last Admin: 01/14/19 05:51 Dose: 25 mcg Documented by: Lisinopril (Zestril) 5 mg PO DAILY [facility] Last Admin: 01/14/19 09:54 Dose: 5 mg Documented by: Magnesium Hydroxide (Milk Of Magnesia) 30 ml PO DAILY PRN PRN PRN Reason: Constipation Melatonin (Melatonin) 3 mg PO QHS PRN PRN PRN Reason: INSOMNIA Metoprolol Succinate (Toprol Xl (Beta Zak)) 200 mg PO DAILY [facility] Last Admin: 01/14/19 09:54 Dose: 200 mg Documented by: Nitroglycerin (Nitrostat) 0.4 mg SUBLINGUAL Q5M PRN PRN Reason: CARDIAC/CHEST PAIN Ondansetron HCl (Zofran) 4 mg IV Q8H PRN PRN PRN Reason: NAUSEA/VOMITING Oxycodone HCl (Oxyir) 5 mg PO Q4H PRN PRN PRN Reason: Pain Score 4-5/10 Sodium Chloride () 5 - 15 ml IV UD PRN PRN Reason: SALINE FLUSH Last Admin: 01/12/19 08:42 Dose: 10 ml Documented by: - Past Medical History Past Medical History (Chronic Problems): Chronic Problems Essential (primary) hypertension (Chronic) - Social History Marital Status: Single - lives with girlfriend Smoking Status: Never smoker Alcohol: None - Family History Maternal History Items: - - Mother patient unsure of the cause Paternal History Items: - - Patient not sure of father's cause of Review of Systems Constitutional: Reports: Weakness, Fatigue. Denies: Anorexia, Chills, Fever, Malaise Eyes: Reports: Vision Change HEENT: Reports: - - no epistaxis. Denies: Head Aches Cardiovascular: Reports: Edema. Denies: Chest Pain, Syncope Respiratory: Denies: Cough, Hemoptysis - no epistaxis Gastrointestinal: Denies: Abdominal Pain, Constipation, Diarrhea, Nausea, Vomiting Genitourinary: Reports: - - foamy urine. Denies: Dysuria, Hematuria Musculoskeletal: Denies: Leg Pain Skin: Denies: Rash Psychiatric: Denies: Anxiety, Depression Hematologic/ Lymphatic: Denies: Anemia, Hx of blood clot - Physical Exam General: Alert, Oriented x3, Cooperative, No apparent distress HEENT: PERRLA, EOMI Oral: Moist Mucosa Neck: Supple Lungs: Clear to auscultation Cardiovascular: Regular rate Abdomen: Bowel Sounds Present, Soft, Non Tender, Non-Distended Extremities: Edema - anasarca Skin: No rashes Musculoskeletal: No Muscle Wasting Psych/Mental Status: Normal Affect, Appropriate, Alert and oriented to time, place, person, mood and affect Vital Signs Temp Pulse Resp BP Pulse Ox 98.7 F 92 16 114/71 95 01/14/19 07:36 01/14/19 09:54 01/14/19 07:36 01/14/19 09:54 01/14/19 08:03 Oxygen Flow Rate (L/min) [ 0 AMBULATION with Oxygen] Oxygen Flow Rate (L/min) [At 0 REST on Room Air] Oxygen Flow Rate (L/min) [ 0 AMBULATING on Room Air] Oxygen Flow Rate (L/min) 2 Oxygen Delivery Method [3] Room Air Oxygen Delivery Method [2] Room Air Oxygen Delivery Method [1 ( Room Air Initial Baseline)] Oxygen Delivery Method Room Air Weight: 99.2 kg Body Mass Index (BMI) 30.9 Intake and Output for Last 24 Hours 01/12/19 01/13/19 01/14/19 23:59 23:59 23:59 Intake Total 1560 / 1560 1170 / 1170 600 / 600 Output Total 1550 / 1550 1900 / 1900 725 / 725 Balance -730 / -730 -125 / -125 Microbiology Past 72 Hours 01/13/19 13:40 Gram Stain - Final Fluid - Thoracentesis Fluid Body Fluid Culture - Preliminary No growth-Final to follow Laboratory Tests Past 24 Hrs 01/13/19 01/13/19 01/13/19 13:40 13:40 13:40 Fluid Source THORACENTESIS Fluid Color YELLOW Fluid Appearance CLEAR Fluid pH Pending Fluid WBC 0.104 Fluid RBC 200 Fluid Tot Cell Count 0.119 Fld Polynuclear WBCs # 0.025 Fld Polynuclear WBCs % 24.0 Fluid Mononuclear WBCs 0.079 Fld Mononuclear WBCs % 76.0 Fluid Neutrophils 22 Fluid Lymphocytes 27 Fluid Macrophages 51 Fl Pathologist Comment May follow Fluid Glucose 104 H Fluid Total Protein 1.2 Fluid LDH 68 Fluid Comment 2 SEE COMMENT Miscellaneous Cytology 01/13/19 13:40 Fluid Source Fluid Color Fluid Appearance Fluid pH Fluid WBC Fluid RBC Fluid Tot Cell Count Fld Polynuclear WBCs # Fld Polynuclear WBCs % Fluid Mononuclear WBCs Fld Mononuclear WBCs % Fluid Neutrophils Fluid Lymphocytes Fluid Macrophages Fl Pathologist Comment Fluid Glucose Fluid Total Protein Fluid LDH Fluid Comment 2 Miscellaneous Cytology Pending Clinical Impression(s) from Imaging Studies Chest X-Ray 01/09/19 10:00 IMPRESSION: There is right basilar airspace consolidation and subsegmental atelectasis. Electronically Signed: Elba Clark MD at 10:24 EDT , Service support , Chest CTA 01/09/19 10:45 IMPRESSION: 1. No CTA demonstrated pulmonary embolism or arterial dissection. 2. Findings suggest congestive heart failure with large bilateral pleural effusions, bilateral compressive atelectasis and possible airspace disease. 3. Moderately large pericardial effusion. Electronically Signed: Elba Clark MD at 11:43 EDT , Service support , Chest X-Ray 01/13/19 13:50 IMPRESSION: Status post right thoracentesis, no postprocedural pneumothorax Presentation right pleural effusion no longer identified Small left pleural effusion Electronically Signed: Valdemar Rodríguez MD at 14:59 EDT , Service support , Thoracentesis Ultrasound 01/13/19 15:27 IMPRESSION: Ultrasound-guided right thoracentesis. Electronically Signed: Rory Rosa, at 14:13 EDT , Service support , Assessment/Plan All Active Problems CHF (congestive heart failure) (Acute) 1. Proteinuria with hypertension may have arterionephrosclerosis, glomerulosclerosis as etiology but cannot exclude other glomerular process. No history of diabetes. Check 24h urine protein, SPEP, UPEP for light chain disease, r/o myeloma, Amyloid serologies, UA, renal us. Discussed pursuing renal biopsy to determine etiology. Renal function preserved Creatinine 0.9. Discussed potential risk of biopsy. He agreed to proceed. Will try to arrange prior to discharge. Stop lovenox. 2. Uncontrolled hypertension. Adjust medications as needed. 3. Anasarca, pleural effusion, fluid overload likely from proteinuria. Continue with lasix 40mg twice daily on discharge 4. Check albumin level, UA. 5. Continue ACEI therapy. DW hospitalist, nursing staff.
--- NOTE | 2019-01-14 13:22 | PN_ITS ---
Subjective: Feeling much better, breathing a lot easier after thoracentesis. No acute events overnight Vitals/I&O's: Vital Signs Temp Pulse Resp BP Pulse Ox 98.7 F 92 16 114/71 95 01/14/19 07:36 01/14/19 09:54 01/14/19 07:36 01/14/19 09:54 01/14/19 08:03 Oxygen Flow Rate (L/min) [ 0 AMBULATION with Oxygen] Oxygen Flow Rate (L/min) [At 0 REST on Room Air] Oxygen Flow Rate (L/min) [ 0 AMBULATING on Room Air] Oxygen Flow Rate (L/min) 2 Oxygen Delivery Method [3] Room Air Oxygen Delivery Method [2] Room Air Oxygen Delivery Method [1 ( Room Air Initial Baseline)] Oxygen Delivery Method Room Air Weight: 218 lb 11.177 oz Body Mass Index (BMI) 30.9 Intake and Output for Last 24 Hours 01/12/19 01/13/19 01/14/19 23:59 23:59 23:59 Intake Total 1560 / 1560 1170 / 1170 600 / 600 Output Total 1550 / 1550 1900 / 1900 725 / 725 Balance -730 / -730 -125 / -125 General: Alert, Oriented x3, Cooperative, No apparent distress HEENT: Atraumatic, PERRLA, EOMI, Normocephalic Oral: Moist Mucosa Neck: Supple, No JVD Lungs: Clear to auscultation, Normal air movement, No rhonchi, No wheeze, No rales Cardiovascular: Regular rate, Regular Rhythm, Normal S1, Normal S2, No murmurs Abdomen: Soft, Non Tender, Non-Distended, No Hepato-splenomegaly Extremities: No edema, Capillary Refill Less than 3 Seconds Skin: No rashes, No breakdown Neurological: Neuro grossly intact, Sensory exam intact to light touch and pain Psych/Mental Status: Normal Affect, Appropriate Microbiology Past 72 Hours 01/13/19 13:40 Fluid - Thoracentesis Fluid Gram Stain - Final 01/13/19 13:40 Fluid - Thoracentesis Fluid Body Fluid Culture - Preliminary No growth-Final to follow Laboratory Results 01/13/19 13:40: Fluid Glucose 104 H, Fluid Total Protein 1.2, Fluid LDH 68 01/13/19 13:40: Fluid pH Pending 01/13/19 13:40: Fluid Source THORACENTESIS, Fluid Color YELLOW, Fluid Appearance CLEAR, Fluid WBC 0.104, Fluid RBC 200, Fluid Tot Cell Count 0.119, Fld Polynuclear WBCs # 0.025, Fld Polynuclear WBCs % 24.0, Fluid Mononuclear WBCs 0.079, Fld Mononuclear WBCs % 76.0, Fluid Neutrophils 22, Fluid Lymphocytes 27, Fluid Macrophages 51, Fl Pathologist Comment May follow, Fluid Comment 2 SEE COMMENT 01/13/19 13:40: Miscellaneous Cytology Pending Current Medications Acetaminophen (Tylenol) 650 mg PO Q6H PRN PRN PRN Reason: Pain Score 1-3/Temp > 100.7 F Al Hydroxide/Mg Hydroxide (Mylanta Ii) 30 ml PO Q6H PRN PRN PRN Reason: Gastric Burning Albuterol Sulfate (Ventolin Aerosols) 2.5 mg INHALATION Q2H PRN PRN PRN Reason: SOB/Wheezing Furosemide (Lasix) 40 mg IV DAILY [facility] Last Admin: 01/14/19 09:53 Dose: 40 mg Documented by: Levothyroxine Sodium (Synthroid) 25 mcg PO DAILY@0600 [facility] Last Admin: 01/14/19 05:51 Dose: 25 mcg Documented by: Lisinopril (Zestril) 5 mg PO DAILY [facility] Last Admin: 01/14/19 09:54 Dose: 5 mg Documented by: Magnesium Hydroxide (Milk Of Magnesia) 30 ml PO DAILY PRN PRN PRN Reason: Constipation Melatonin (Melatonin) 3 mg PO QHS PRN PRN PRN Reason: INSOMNIA Metoprolol Succinate (Toprol Xl (Beta Zak)) 200 mg PO DAILY [facility] Last Admin: 01/14/19 09:54 Dose: 200 mg Documented by: Nitroglycerin (Nitrostat) 0.4 mg SUBLINGUAL Q5M PRN PRN Reason: CARDIAC/CHEST PAIN Ondansetron HCl (Zofran) 4 mg IV Q8H PRN PRN PRN Reason: NAUSEA/VOMITING Oxycodone HCl (Oxyir) 5 mg PO Q4H PRN PRN PRN Reason: Pain Score 4-5/10 Sodium Chloride () 5 - 15 ml IV UD PRN PRN Reason: SALINE FLUSH Last Admin: 01/12/19 08:42 Dose: 10 ml Documented by: STROKE Vital Signs/Narrative: Vital Signs Pulse BP 01/14/19 09:54 92 114/71 Medical Necessity - Tobacco Use Smoking Status: Never smoker Assessment/Plan All Active Problems CHF (congestive heart failure) (Acute) 1. Acute diastolic CHF with a large bilateral pleural effusion/HTN -On admission his BNP was 902, and the CT of his chest showed CHF with large bilateral pleural effusions. This is a new diagnosis for him -Continue with diuresis by cardiology -Echo with an EF of 60% -Thoracentesis was performed on 01/13/2019 with almost 2 L out -Fluid analysis is transudative 2. Proteinuria -Renal function is stable however he did have very large protein -Consult to nephrology -He was started on lisinopril by cardiology -We will get a urine electrophoresis as well as a renal biopsy and a renal ultrasound and a 24-hour urine protein collection -For biopsy tomorrow at 9 AM 3. Hypothyroidism -TSH of 7.3, with a low normal T4 and a T3 of 1.7 -He was Synthroid at 25 mg daily -Follow-up as an outpatient with his PCP for repeat TSH DVT: Lovenox Code Visit Inpatient E&M: 29087 Subs Hosp L2
[2019-01-14 13:27] LABS: Mucous, Urine 0 SEEN /hpf (<or=2+); Red Blood Cells-Urine 0 SEEN /hpf (0-5)
[2019-01-14 13:34] LABS: Color, Urine Yellow (Yellow); Glucose, Dipstick Normal (Normal); Ketone-Dipstick Negative (Negative); Leukocyte Esterase-Dipstick Negative /ul (Negative); Nitrite-Dipstick Negative (Negative); Occult Blood-Urine Negative /ul (Negative); Protein-Dipstick 100 mg/dl (Negative); Urine Bilirubin Dipstick Negative (Negative); Urine Clarity Clear (Clear); Urine Urobilinogen Normal (Normal)
[2019-01-14 13:38] LABS: Bacteria 1+ /hpf (None Seen); Hyaline Cast 5-10 SEEN /lpf (0-5); Squamous Epithelial Cells - UA 0-5 SEEN /hpf (0-5); White Blood Cells 0-5 SEEN /hpf (0-5)
[2019-01-14 14:11] LABS: Albumin, Serum 1.8 g/dL (3.2-5.0)
[2019-01-14 14:51] LABS: Pathologist Comment/Body Fluid Reviewed
--- NOTE | 2019-01-14 15:48 | NURSING ---
Read and reviewed SN documentation
[2019-01-15 03:03] VITALS: PULSE 81
[2019-01-15 03:05] VITALS: BP 121/73; PULSE 85; RESP 22; TEMP 36.8; O2SAT 95
[2019-01-15 07:07] VITALS: PULSE 80
[2019-01-15 09:05] VITALS: BP 127/75; PULSE 86; RESP 14; TEMP 36.8; O2SAT 94
[2019-01-15 11:00] VITALS: PULSE 80
[2019-01-15 11:08] VITALS: PULSE 86
[2019-01-15] MEDS: Levothyroxine 25 MCG TABLET PO (11:08)
[2019-01-15] MEDS: Lisinopril 5 MG Tablet PO (11:08)
[2019-01-15] MEDS: Metoprolol(XL)Succ 200 MG Tablet PO (11:08)
[2019-01-15] MEDS: Furosemide 40 MG/4 ML Vial IV (11:09)
--- NOTE | 2019-01-15 11:24 | PCM.DC ---
You will use the following diet at home:: Cardiac Your food should be the consistency of: Regular Your liquids should be the consistency of: Regular/Thin Discharge Activity: Return to Normal Activity Call your doctor if you observe: Fever of 101 or Higher, Shortness of breath, Dizziness, Fainting spells, Swelling in the ankles, Chest pain, Increased palpitations (irregular heartbeat) Allergies/Adverse Reactions: Allergies No Known Allergies Allergy (Verified 01/09/19 09:49) Medications to take at Discharge Metoprolol Succinate 200 mg PO DAILY 01/09/19 Furosemide 40 mg PO DAILY #30 tab 01/13/19 Levothyroxine [Synthroid] 25 mcg PO DAILY@0600 #30 tab 01/13/19 Lisinopril [Zestril] 5 mg PO DAILY #30 tab 01/13/19 The following prescriptions were given: Furosemide 40 mg PO DAILY #30 tab Transmission Status: Received by [facility] Levothyroxine [Synthroid] 25 mcg PO DAILY@0600 #30 tab Transmission Status: Received by [facility] Lisinopril [Zestril] 5 mg PO DAILY #30 tab Transmission Status: Received by [facility] Primary Care Physician: Gerry Pate DO [Primary Care Provider] - Please follow up with your Primary Care Physician in: 1 Week Test Results: Test results from this visit will be discussed in further detail at your follow-up appointment, if applicable. Please Follow Up With: Yovany Whitley MD When: 1 Week Please Follow Up With: Amy Lemus DO When: 1-2 weeks Proposed Discharge Date: 01/13/19
--- NOTE | 2019-01-15 11:56 | PHA.DC.MC ---
Pharmacy Service has performed discharge medication reconciliation and counseling for this patient. 1. Levothyroxine 25mcg PO daily 2. Lisinopril 5mg PO daily 3. Furosemide 40mg PO daily The patient's discharge medication list was reviewed for discrepancies and discrepancies were resolved. Home Medications Metoprolol Succinate 200 mg PO DAILY 01/09/19 Furosemide 40 mg PO DAILY #30 tab 01/13/19 Levothyroxine [Synthroid] 25 mcg PO DAILY@0600 #30 tab 01/13/19 Lisinopril [Zestril] 5 mg PO DAILY #30 tab 01/13/19 The patient was counseled on the following discharge medications and changes in medications for homegoing were reviewed. The Reason for Use, instructions for use, and potential side effects were reviewed for all new medications. The patient's questions regarding all of their medications were answered. The patient was able to verbally demonstrate an understanding of their discharge medications.
--- NOTE | 2019-01-15 11:59 | PN.RENAL_ITS ---
Subjective: CT machine down. Kidney biopsy needs rescheduled. BP stable. Still with anasarca, hypoalbuminemic with proteinuria. Renal fxn preserved. 24h urine c omplete at 1315 today. - Physical Exam General: Alert, Oriented x3, Cooperative, No apparent distress Lungs: Rhonchi, - - rales Cardiovascular: Regular rate Abdomen: Bowel Sounds Present, Soft, Non Tender, Non-Distended, Obese Extremities: Edema - anasarca Skin: No rashes Psych/Mental Status: Normal Affect, Appropriate, Alert and oriented to time, place, person, mood and affect Vital Signs Temp Pulse Resp BP Pulse Ox 98.2 F 86 14 127/75 H 94 01/15/19 09:05 01/15/19 11:08 01/15/19 09:05 01/15/19 09:05 01/15/19 09:05 Oxygen Flow Rate (L/min) [ 0 AMBULATION with Oxygen] Oxygen Flow Rate (L/min) [At 0 REST on Room Air] Oxygen Flow Rate (L/min) [ 0 AMBULATING on Room Air] Oxygen Flow Rate (L/min) 2 Oxygen Delivery Method [3] Room Air Oxygen Delivery Method [2] Room Air Oxygen Delivery Method [1 ( Room Air Initial Baseline)] Oxygen Delivery Method Room Air Weight: 100.3 kg Body Mass Index (BMI) 30.9 Intake and Output for Last 24 Hours 01/13/19 01/14/19 01/15/19 23:59 23:59 23:59 Intake Total 1170 / 1170 977 / 977 0 / 0 Output Total 1900 / 1900 1150 / 1150 250 / 250 Balance -730 / -730 -173 / -173 -250 / -250 Microbiology Past 72 Hours 01/13/19 13:40 Gram Stain - Final Fluid - Thoracentesis Fluid Body Fluid Culture - Preliminary No growth-Final to follow Anaerobic Culture - Preliminary No growth in 48 hours. Laboratory Tests Past 24 Hrs 01/09/19 01/13/19 01/13/19 10:00 05:25 13:40 Total Protein (PEP) Albumin 1.8 L Albumin (PEP) Globulin (PEP) Albumin/Globulin (PEP) [id number] Beta Globulins Gamma Globulins M-Fredy Urine Color Urine Clarity Urine pH Ur Specific [place] Urine Protein Urine Glucose (UA) Urine Ketones Urine Occult Blood Urine Nitrite Urine Bilirubin Urine Urobilinogen Ur Leukocyte Esterase Urine RBC Urine WBC Ur Squamous Epith Cells Urine Bacteria Hyaline Casts Urine Mucus Fl Pathologist Comment Reviewed THU Screen Pending HEMA-1 Antibody Pending SS-A/Ro IgG Antibody Pending SS-B/La IgG Antibody Pending Sm (Ramey) Antibody Pending MANAGER EQUIPMENT Antibody Pending Scl-70 Scleroderma Ab Pending Double Strand DNA Ab Pending Centromere B Antibody Pending 01/14/19 01/15/19 13:15 05:40 Total Protein (PEP) Pending Albumin Albumin (PEP) Pending Globulin (PEP) Pending Albumin/Globulin (PEP) Pending [id number] Pending [id number] Pending Beta Globulins Pending Gamma Globulins Pending M-Fredy Pending Urine Color Yellow Urine Clarity Clear Urine pH 6.0 Ur Specific [place] 1.010 Urine Protein 100 H Urine Glucose (UA) Normal Urine Ketones Negative Urine Occult Blood Negative Urine Nitrite Negative Urine Bilirubin Negative Urine Urobilinogen Normal Ur Leukocyte Esterase Negative Urine RBC 0 SEEN Urine WBC 0-5 SEEN Ur Squamous Epith Cells 0-5 SEEN Urine Bacteria 1+ Hyaline Casts 5-10 SEEN Urine Mucus 0 SEEN Fl Pathologist Comment THU Screen HEMA-1 Antibody SS-A/Ro IgG Antibody SS-B/La IgG Antibody Sm (Ramey) Antibody MANAGER EQUIPMENT Antibody Scl-70 Scleroderma Ab Double Strand DNA Ab Centromere B Antibody Medical Necessity - Tobacco Use Smoking Status: Never smoker Assessment/Plan All Active Problems CHF (congestive heart failure) (Acute) 1. Proteinuria with hypertension may have arterionephrosclerosis, glomerulosclerosis as etiology but cannot exclude other glomerular process. Kindey biopsy scheduled for today cancelled due to CT scan down. No history of diabetes. Await 24h urine protein, SPEP, UPEP for light chain disease, r/o myeloma, Amyloid serologies. Renal US unremarkable. Reschedule renal biopsy as outpt. Follow up with me in office in 1 week 2. Uncontrolled hypertension controlled today. Continue lisinopril 3. Anasarca, pleural effusion, fluid overload likely from proteinuria, hypoalbuminemia. Continue with lasix 40mg twice daily on discharge
--- NOTE | 2019-01-15 12:55 | CASEMGMT ---
This RN CM to room to offer CCN program to pt for education and med management at this time and pt declined for someone to come to his home at this time but states that his girlfriend is a 'nurse' and she will take care of all of that. Pt states no further questions/concerns/needs at this time. [place] [facility]
[2019-01-15 16:49] LABS: ANTINUCLEAR ANTIBODIES DIRECT Negative (Negative)
[2019-01-16 14:08] LABS: PROEL- A/G Ratio 0.9 (0.7-1.7); PROEL- Albumin 1.8 g/dL (2.9-4.4); PROEL- Alpha-1 Globulin 0.2 g/dL (0.0-0.4); PROEL- Alpha-2 Globulin 0.9 g/dL (0.4-1.0); PROEL- Beta Globulin 0.7 g/dL (0.7-1.3); PROEL- Gamma Globulin 0.2 g/dL (0.4-1.8); PROEL- Globulin, Total 2.1 g/dL (2.2-3.9); PROEL- TOTAL PROTEIN 3.9 g/dL (6.0-8.5)
[2019-01-16 15:55] LABS: pH, Body Fluid 11254 7.6 (Not Estab.)
[2019-01-20 23:07] LABS: Albumin, Ur 75.1 % (.); Alpha-1-Globulin, Ur 5.7 % (.); Alpha-2-Globulins, Ur 8.9 % (.); Beta Globulin, Ur 7.9 % (.); Gamma Globulin, Ur 2.4 % (.); M-Spike, Ur mg/24Hr 29 mg/24 hr (Not Observed); Protein, 24Ur 2912 mg/24 hr (30-150); Total Protein, Ur 187.9 mg/dL (Not Estab.)
== END 2019-01-15 15:34 | disposition home or self-care (01) | DRG 291 ==
LOC: ED 11:52 → PCU 12:23
PROVIDERS: Internal Medicine Nephrology; Nurse Practitioner Family; Specialist; Admitting Provider Internal Medicine; Emergency Provider Emergency Medicine; PCP Student in an Organized Health Care Education/Training Program; Visit Provider Family Medicine
DX: I11.0 Hypertensive heart disease with heart failure (principal); I50.31 Acute diastolic (congestive) heart failure; J91.8 Pleural effusion in other conditions classified elsewhere; E66.9 Obesity, unspecified; Z68.30 Body mass index [BMI] 30.0-30.9, adult; Z87.891 Personal history of nicotine dependence; E03.9 Hypothyroidism, unspecified; R80.9 Proteinuria, unspecified
CPT/HCPCS: 32555; 36415; 71045; 71046; 71275; 76770; 80048; 81001; 82040; 82570; 82945; 83615; 83735; 83880; 83986; 84156; 84157; 84165; 84166; 84439; 84443; 84481; 84484; 85025; 85027; 85610; 85730; 86038; 86225; 86235; 86335; 87070; 87075; 87205; 88108; 88305; 88313; 88341; 88342; 89050; 93005; 93306; 94002; 94003; 99251; 99285; Q9957; Q9967; A4216; G0463; J1940

== ENCOUNTER → 2019-01-23 07:43 | Outpatient (CLI) | payer OTHER, SELFPAY ==
[2019-01-14 08:05] VITALS: BMI 32.5
[2019-01-23] VITALS (9 sets, daily range): BP systolic 114–169; BP diastolic 71–114; PULSE 75–87; RESP 16–34; TEMP 36.4; O2SAT 93–98; BMI 26.4
--- NOTE | 2019-01-23 | KI_PTH ---
PATIENT: SHELLEY DOAN [facility]: [facility] U#:[id number] AGE/SX: 74/M ROOM: RE01/23/[address]: Dr. Amy Lemus DO : 1950 BED: DIS: SPEC #: [id number] RECD: 01/23/19 09:29 STATUS: MARTHA SUSANNA #: [id number] PRETTY: 01/23/19 00:[address]: Amy Lemus DEPT: SURGICAL PATHOLOGY RECD BY: Vitaly Jenkins ENTERED: 01/23/19 10:30 SP TYPE: KIDNEY BX OTHR DR: Dr. Gerry Pate DO Tissues: Kidney, NOS Procedures: Electron Microscopy (ACH) Fluorescent Antibody (ACH) Sp St Grp II Kidney (ACH) Kidney Biopsy (ACH) Fluorescent antibody (ACH) add'l HEADER OPERATION: CT-guided left kidney biopsy PRE-OP DIAGNOSIS: Light chain proteinuria TISSUE SUBMITTED: Left kidney 18 gauge x4 cores MICROSCOPIC DIAGNOSIS Left kidney, CT-guided biopsies: Renal cortical tissue showing prominent diffuse amyloid deposition (lambda-clonal) in glomeruli and vessels. Mild interstitial fibrosis. Mild acute tubule injury. See comment. Amyloid typing will be reported in an addendum. COMMENT Correlate clinically with history and onset of symptoms and follow up with oncology. 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 CLINICAL INFORMATION: Light chain proteinuria. 66-year-old man with known hypertensive disease admitted for increased shortness of breath, edema and weakness. Swelling a few months ago with foamy urine. Started on IV Lasix, edema is improved but still remains. CT of the chest showed bilateral pleural effusion and underwent thoracentesis. Urine protein to creatinine ratio of 27. CT findings suggestive of congestive heart failure. Arterionephrosclerosis, glomerulosclerosis as possible etiology but cannot exclude other glomerular processes. No history of diabetes. MICROSCOPIC DESCRIPTION Light microscopy examined with H & E, PAS, Beal silver and trichrome stains yields 15 glomeruli with thickened capillary loops and expanded mesangium showing pink waxy to hyaline-like material suspicious for amyloid. A [place] red stain supports the diffuse amyloid deposition in the glomeruli and vessels, which shows classic apple-green birefringence on polarization. PAS stain shows mild positivity in the amyloid material, but no deep/heavy staining. There is no evidence of significant global glomerulo-sclerosis, glomerular inflammation or crescent formation. The vessels show variable globular thickening and pink amyloid material. There is, however, no evidence of vasculitis. The interstitium shows mild thickening and fibrosis (supported with trichrome stain) with sparse lymphocytic infiltrate. The tubules show evidence of acute injury with rare tubules showing changes of acute tubule necrosis. There are occasional tubules showing casts and Dkoj-Eftkyrly-jzbw proteinaceous material. Special stain positive controls are reviewed and deemed adequate. IMMUNOFLUORESCENCE: Tissue frozen for immunofluorescence evaluation yields 5 glomeruli, of which 1 is sclerosed. Lambda shows diffusely increased signal in the glomeruli as well as the tubules diffusely. There is background glomerular signal with IgG, IgA, albumin and kappa. C3 shows mild granular signal in 2 glomeruli. IgM, C1q and fibrin are negative. Positive and negative immunofluorescence controls are reviewed and deemed adequate. ELECTRON MICROSCOPY: Toluidine blue semithin sections yields 3 glomeruli with capillary loop and mesangial thickening similar to the light microscopy findings. Ultrastructure examination shows diffuse yet variable patches of haphazard thin fibrils in the basement membrane and mesangium consistent with morphology of amyloid material. The podocyte foot processes are predominantly intact. The mesangial matrix substance show minimal expansion apart from the amyloid material. Examination of small vessels/ arterioles shows patchy presence of similar fibrillary amyloid material. The tubules show mild degenerative changes. GROSS DESCRIPTION The specimen is sent entirely to [facility] for diagnosis. Received in poly-transport medium labeled with the patient's name, medical record number and designation kidney biopsies are four garcia cores of renal tissue ranging in length from 0.6 cm up to 1.2 cm, each approximately 0.1 cm in width. Glomeruli are seen under the dissecting microscope. The specimen is divided for immunofluorescence, electron microscopy and light microscopy.
--- NOTE | 2019-01-23 07:51 | CT_ITS ---
PROCEDURE: CT GUIDED PERCUTANEOUS KIDNEY BIOPSY. DATE: January 23, 2019. INDICATION: Male, 68 years old. Proteinuria. PHYSICIAN: Rory Rosa M.D. MEDICATIONS: 2 mg of Versed and 50 mcg of fentanyl intravenously. Conscious sedation was started at 8:55 AM and terminated at 9:10 AM. The patient was independently monitored by the department nurse. ACCESS SITE: Lower pole of the left kidney. NEEDLE: 18-gauge core biopsy needle. SPECIMEN: 4 18-gauge cores. EBL: None. COMPLICATIONS: None immediate. RADIATION DOSAGE (If Supplied By Facility): CTDIvol = ( 23 ) mGy, DLP = ( 473.08 ) mGycm The risks, benefits, and alternatives to the procedure and sedation were explained to the patient. The specific risk of hemorrhage requiring further treatment or intervention was detailed and accepted. Written informed consent was obtained. The patient was placed on the CT table in the prone position. Multiple axial images were obtained from the lung base through the caudal extent of the kidneys. An appropriate entry site was identified and a daniella made on the skin. The skin overlying the [left ] posterior flank was prepped and draped in sterile fashion. 1% lidocaine was administered subcutaneously for local anesthesia. Initially, a 22 gauge needle was advanced and CT images confirmed good needle position. The 22 gauge needle was then exchanged for an 17 gauge introducer needle which was advanced. Repeat CT images confirmed good needle trajectory and tip position. The introducer needle was then advanced into the periphery of the inferior renal pole, and CT images were again obtained to confirm exact tip location. The inner stylet of the introducer needle was then removed and an 18 gauge coaxial needle was advanced thru the introducer needle and biopsy performed. A total of [ 4] passes were performed and the specimen collected was sent to Pathology for further evaluation. The needle was withdrawn. Hemostasis was achieved with manual compression and a sterile dressing was applied. Repeat CT images of the biopsy area was performed which demonstrated no gross bleeding or hematoma. The patient tolerated the procedure well without immediate complications. The patient was transported to the [floor/recovery area] in stable condition. CT/Biopsy/Inj or Needle Placement IMPRESSION: Successful CT guided percutaneous kidney biopsy. Conscious sedation protocol was followed. Electronically Signed: Rory Rosa, at 10:04 EDT , Service support ,
[2019-01-23] MEDS: Midazolam 2 MG/2 ML Syringe IV (08:55)
[2019-01-23] MEDS: fentaNYL 100 MCG/2 ML Ampul IV (08:57)
== END ==
PROVIDERS: Family Provider Student in an Organized Health Care Education/Training Program; PCP Student in an Organized Health Care Education/Training Program; Referring Provider Internal Medicine Nephrology; Visit Provider Internal Medicine Nephrology
DX: R80.8 Other proteinuria (principal)
CPT/HCPCS: 50200; 77012; 88305; 88313; 88346; 88348; 88350; 99156; J7040; A4216

== ENCOUNTER 2019-03-03 09:10 | Inpatient (IN) | payer MEDICARE, OTHER, SELFPAY ==
[2019-01-26 15:01] VITALS: BMI 28.6
[2019-03-03] VITALS (9 sets, daily range): BP systolic 115–146; BP diastolic 72–98; PULSE 71–83; RESP 18–24; TEMP 36.4–36.6; O2SAT 83–100; BMI 25.7; BMI 28.8; BMI 28.9
--- NOTE | 2019-03-03 09:19 | ED.DCSUM_ITS ---
History of Present Illness Chief Complaint: Shortness of Breath Informant: Patient Onset: Days Context: Gradual Onset Timing: Continuous Current Severity: Moderate Maximum Severity: Moderate Narrative: The patient presents to the emergency department with dyspnea. Patient has history of blood dyscrasia. He is scheduled to begin chemotherapy. He was actually at [facility] today to have a port placed by Dr. Renee. However, he was found to be hypoxic. There was concern for reaccumulation of his pleural effusion. The patient was actually admitted just about 2 months ago. He underwent thoracentesis and had almost 2 L removed from his right lung. He states he been doing well since then, but has had slowly progressive increasing dyspnea. He denies any fevers. He denies any cough. He is not on oxygen at home. He has been compliant with his medications. Prior similar symptoms: Yes Recent Illness/Hospitalization: No Past Medical History - Allergies and Home Meds Allergies/Adverse Reactions: Allergies No Known Allergies Allergy (Verified 03/03/19 09:10) Prior records reviewed: Yes Past Medical History: - - Underlying blood dyscrasia, CHF, dyspnea Lives: With Family Smoking Status: Former smoker - Family History Maternal Family History: Reports: - - Mother patient unsure of the cause Paternal Family History: Reports: - - Patient not sure of father's cause of Review of Systems General: Denies: Chills, Fever, Sweats Eyes: Denies: Visual changes - bilaterally, Diplopia ENT: Denies: Rhinorrhea, Sore throat Cardiovascular: Denies: Chest pain, Palpitations Respiratory: Reports: Dyspnea, Dyspnea on exertion. Denies: Cough Gastrointestinal: Denies: Abdominal pain, Nausea, Vomiting, Diarrhea, Melena, Hematochezia Genitourinary: Denies: Dysuria, Hematuria, Frequency Musculoskeletal: Denies: Back pain, Extremity Pain Skin: Denies: Rash, Wounds Neurological: Denies: Headache, Weakness, Numbness Physical Exam Vital Signs/Narrative: Vital Signs Temp Pulse Resp BP Pulse Ox 03/03/19 09:11 97.9 F 83 19 H 136/86 H 83 Inital Vital Signs reviewed: Yes General: Well nourished, Well developed, No Acute Distress Head: Normocephalic, Atraumatic Eyes: Perrl, EOMI ENT: Moist mucous membranes, No rhinorrhea Neck: Supple, Nontender Cardiovascular: Regular rate, Regular rhythm, No murmurs Respiratory: No distress, Chest nontender, Rales, Diminished Abdomen: Soft, Nontender, Nondistended, Normal bowel sounds Back: Nontender, Normal Inspection Extremities: Nontender, No edema Skin: Normal color, No rash Neurological: Alert, Oriented x3, Cranial nerves II-XII grossly intact, Normal Strength, Normal Sensation Psychological: Normal affect, Normal Mood Diagnostic/Tx/Re-eval Clinical Impression(s) from Imaging Studies Chest X-Ray 03/03/19 09:43 IMPRESSION: Mild to moderate bilateral pleural effusions Electronically Signed: Lai Rayo MD at 10:25 EST , Service support , Abnormal Lab Results 03/03/19 03/03/19 03/03/19 09:23 09:23 09:23 WBC 8.3 RBC 4.38 L Hgb 13.5 Hct 42.7 MCV 97.5 H MCH 30.8 MCHC 31.6 L RDW Std Deviation 51.2 H RDW Coeff of Babita 14.4 Plt Count 185 MPV 10.7 Immature Gran % (Auto) 0.200 Neut % (Auto) 67.3 Lymph % (Auto) 23.7 [place] % (Auto) 6.2 Eos % (Auto) 1.9 Baso % (Auto) 0.7 Absolute Neuts (auto) 5.6 Absolute Lymphs (auto) 1.96 Nucleated RBC % 0 PT INR APTT Sodium 145 Potassium 4.1 Chloride 104 Carbon Dioxide 39.0 H Anion Gap 2 L BUN 19 H Creatinine 0.94 Estim Creat Clear Calc 82.55 Est GFR (MDRD) Af Amer 102 Est GFR (MDRD) Non-Af 85 BUN/Creatinine Ratio 20.2 H Glucose 92 Calcium 9.3 Troponin I 0.063 H B-Natriuretic Peptide 1051.3 H 03/03/19 09:23 WBC RBC Hgb Hct MCV MCH MCHC RDW Std Deviation RDW Coeff of Babita Plt Count MPV Immature Gran % (Auto) Neut % (Auto) Lymph % (Auto) [place] % (Auto) Eos % (Auto) Baso % (Auto) Absolute Neuts (auto) Absolute Lymphs (auto) Nucleated RBC % PT 14.8 INR 1.2 APTT 28.1 Sodium Potassium Chloride Carbon Dioxide Anion Gap BUN Creatinine Estim Creat Clear Calc Est GFR (MDRD) Af Amer Est GFR (MDRD) Non-Af BUN/Creatinine Ratio Glucose Calcium Troponin I B-Natriuretic Peptide - Rhythm Strip Rhythm Strip: Sinus Rhythm Rate: 80 Ectopy: None - EKG Initial EKG Interpretation: Sinus Rhythm, No Acute Injury Pattern, Non-Specific ST Changes Prior: Unchanged - Medical Decision Making The patient presents to the emergency department with hypoxia. He has crackles in both bases, but greater in the right. He said no chest pain. His EKG was obtained. The computer read as acute ID, but it appears to be artifact and it is unchanged from his prior EKG on admission. Chest x-ray was obtained. It does show reaccumulation of the pleural effusion. Troponin is indeterminate, but this is likely from his underlying amyloid and hypoxia. I did discuss the patient with radiology who is in agreement with admission for thoracentesis. The patient was also discussed with his surgeon who will attempt to have his port placed while inpatient. The patient will be admitted for his hypoxia and recurrent effusion. Impression 1. Decompensated CHF with hypoxia 2. Recurrent pleural effusion 3. Amyloid nephropathy ED Disposition - Plan for ED Patient:
--- NOTE | 2019-03-03 09:19 | EKG12_ITS ---
Test Reason : SOB Blood Pressure : / mmHG Vent. Rate : 081 BPM Atrial Rate : 081 BPM P-R Int : 160 ms QRS Dur : 082 ms QT Int : 410 ms P-R-T Axes : 051 035 232 degrees QTc Int : 476 ms Normal sinus rhythm Anteroseptal infarct , age undetermined T wave abnormality, consider inferolateral ischemia Abnormal ECG Confirmed by GRANT FOWLER, ALEXIS ([id number]), market editor FELECIA ANGUIANO ([id number]) on 03/04/2019 1:04:33 PM Referred By: Yimi Castro Confirmed By:ALEXIS BURNS MD
[2019-03-03 09:32] LABS: Absolute Lymphocyte Count 1.96 X10^3/uL (0.83-4.51); Absolute Neutrophil Count 5.6 X10^3/uL (2.0-7.7); Basophil# 0.06 X10^3/uL; Basophil% 0.7 % (0-1); Eosinophil# 0.16 X10^3/uL; Eosinophils% 1.9 % (0-5); Hematocrit 42.7 % (40-54); Hemoglobin 13.5 g/dL (13.0-16.5); Lymphocyte # 1.96 X10^3/ul (4.0); Lymphocyte % 23.7 % (19-41); Mean Corp Hgb Conc 31.6 g/dL (32-36); Mean Corpuscular Hgb 30.8 pg (27.0-32.0); Mean Corpuscular Volume 97.5 fL (80-94); Mean Platelet Vol. 10.7 fl (6.2-12.0); Monocyte# 0.51 X10^3/uL; Monocyte% 6.2 % (0-10); NRBC Flagged by Analyzer 0 % (0-5); Neutrophil # 5.56 X10^3/uL (2.7-7.7); Neutrophil % 67.3 % (47-70); Platelet Count 185 K/mm3 (150-450); RBC Distribution Width CV 14.4 % (11.6-14.6); RBC Distribution Width SD 51.2 fl (35.1-43.9); Red Blood Count 4.38 M/mm3 (4.6-6.2); White Blood Count 8.3 K/mm3 (4.4-11.0)
--- NOTE | 2019-03-03 09:43 | RAD_ITS ---
STUDY: X-RAY CHEST REASON FOR EXAM: Male, 68 years old. pt. retaining fluid, SOB TECHNIQUE: PA and lateral views of the chest. COMPARISON: January 13, 2019 FINDINGS: A small to moderate size right pleural effusion is present. A small left pleural effusion is present. The visualized lung yee are clear. The heart is mildly enlarged. The remaining structures are stable. RAD/Chest PA and Lateral IMPRESSION: Mild to moderate bilateral pleural effusions Electronically Signed: Lai Rayo MD at 10:25 EST , Service support ,
[2019-03-03 09:48] LABS: Anion Gap 2 (5-15); BUN 19 mg/dL (7-18); BUN/Creat Ratio 20.2 RATIO (10-20); Calcium,Total 9.3 mg/dL (8.5-10.1); Chloride 104 mmol/L (98-107); Creatinine, Serum 0.94 mg/dL (0.70-1.30); EST Glomerular Filtration Rate 85 mL/min (>60); Est Glom Filt Rate - Afr Amer 102 mL/min (>60); Estimated Creatinine Clearance 82.55 ml/min; Glucose 92 mg/dL (74-106); Potassium 4.1 mmol/L (3.5-5.1); Sodium Level 145 mmol/L (136-145)
[2019-03-03 09:51] LABS: International Normalized Ratio 1.2; Partial Thromboplast Time 28.1 Seconds (24.1-36.2); Prothrombin Time (Protime)PT. 14.8 SECONDS (11.7-14.9)
[2019-03-03 09:55] LABS: BNP,B-Type NATRIURETIC PEPTIDE 1051.3 pg/mL (0-100)
--- NOTE | 2019-03-03 10:35 | HP.PCM_ITS ---
Problem List (1) Diastolic CHF, acute on chronic Status: Acute (2) Nephrotic syndrome Status: Chronic (3) Amyloidosis Status: Chronic (4) Diastolic CHF Status: Chronic Qualifiers: Heart failure chronicity: acute on chronic Qualified Code(s): I50.33 - Acute on chronic diastolic (congestive) heart failure (5) Pleural effusion Status: Acute Comment: Right thoracentesis 01/13/19 (6) Proteinuria Status: Chronic Qualifiers: Proteinuria type: unspecified Qualified Code(s): R80.9 - Proteinuria, unspecified (7) CHF (congestive heart failure) Status: Chronic Qualifiers: Heart failure type: diastolic Heart failure chronicity: acute on chronic Qualified Code(s): I50.33 - Acute on chronic diastolic (congestive) heart failure (8) Essential (primary) hypertension Status: Chronic History of Present Illness Date of Admission: 03/03/19 Chief Complaint: Shortness of breath The patient is a 68 year old M past medical history sent in for chronic diastolic congestive heart failure, recently diagnosed amyloidosis involving the kidneys with possible renal involvement who was scheduled to undergo port placement for induction chemotherapy and subsequent bone marrow transplant evaluation. Patient was seen and evaluated at [facility] for the procedure was found to be significantly dyspneic at rest with oxygen saturation in the mid 80s. Patient was subsequently transferred to the [facility] emergency department where an assessment of acute on chronic diastolic heart failure with bilateral pleural effusion made. Admitted to a monitored bed for further management. Past Medical History Past Medical History (Chronic Problems): Chronic Problems (Last Reviewed 03/03/19 @ 11:10 by Yimi Castro MD) Nephrotic syndrome (Chronic) Amyloidosis (Chronic) Diastolic CHF (Chronic) Proteinuria (Chronic) CHF (congestive heart failure) (Chronic) Essential (primary) hypertension (Chronic) Medical History: Medical History (Last Reviewed 03/03/19 @ 11:10 by Yimi Castro MD) Pericardial effusion (Acute) I31.3 Anasarca (Acute) R60.1 Pleural effusion (Acute) J90 Right thoracentesis 01/13/19 Proteinuria (Chronic) R80.9 CHF (congestive heart failure) (Chronic) I50.9 Essential (primary) hypertension (Chronic) I10 Allergies No Known Allergies Allergy (Verified 03/03/19 09:10) Home Medications: Ambulatory Orders Medication Instructions Recorded furosemide 40 mg tablet 40 mg PO DAILY #90 tab 01/26/19 levothyroxine 25 mcg tablet 25 mcg PO DAILY@0600 #30 tab 01/26/19 lisinopril 5 mg tablet 5 mg PO DAILY #90 tab 01/26/19 metoprolol succinate ER 200 mg 200 mg PO DAILY #90 tab 01/26/19 tablet,extended release 24 hr Surgical History: Surgical History (Last Reviewed 03/03/19 @ 11:10 by Yimi Castro MD) History of open reduction and internal fixation (ORIF) procedure Z98.890 left foot Lives: With Family Smoking Status: Former smoker Tobacco Use: Cigarettes, Chew - *Family History Maternal History Items: - - Mother patient unsure of the cause Paternal History Items: - - Patient not sure of father's cause of Review of Systems Constitutional: Denies: Anorexia, Chills, Fever, Night Sweats, Weight Change HEENT: Denies: Head Aches, Sinus Congestion, Sinus Drainage Cardiovascular: Reports: Edema. Denies: Chest Pain, Orthopnea, Palpitations, Paroxysmal Noc. Dyspnea Respiratory: Reports: Shortness of Breath. Denies: Cough Gastrointestinal: Denies: Abdominal Pain, Hematemesis, Hematochezia, Nausea, Melena, Vomiting Genitourinary: Denies: Dysuria, Frequency, Hematuria, Urgency Musculoskeletal: Denies: Joint Pain, Joint Tenderness Skin: Denies: Rash Neurological: Denies: Focal weakness, Numbness, Tingling Psychiatric: Denies: Homicidal Ideations, Suicidal Ideations Hematologic/ Lymphatic: Denies: Easy Bruising, Easy Bleeding VTE Information - Inpt Only VTE Present on Admission: No VTE Mechan Device Prophylaxis: None VTE Pharm Prophylaxis ordered?: Yes Patient Problems: Active and Suspected Problems (Last Reviewed 03/03/19 @ 11:10 by Yimi Castro MD) Diastolic CHF, acute on chronic (Acute) Objective: GENERAL: cooperative HEENT: Atraumatic; EYES; Anicteric, Normal Conjunctiva NECK; supple, normal thyroid, RESPIRATORY: Diminished to auscultation CARDIOVASCULAR: Regular S1 S2, GI: soft, normoactive bowel sounds, : No Renal angle tenderness; EXTREMITIES: Bipedal edema, no clubbing, MUSCULOSKELETAL: no muscle waisting NEURO: Awake; no lateralizing signs. SKIN: No Rash PSYCH; Flat affect - Physical Exam Vitals/I&O's: Vital Signs Temp Pulse Resp BP Pulse Ox 97.9 F 83 19 H 136/86 H 83 03/03/19 09:11 03/03/19 09:11 03/03/19 09:11 03/03/19 09:11 03/03/19 09:11 Oxygen Delivery Method Room Air Weight: 86.183 kg Body Mass Index (BMI) 25.7 Laboratory Results 03/03/19 09:23: WBC 8.3, RBC 4.38 L, Hgb 13.5, Hct 42.7, MCV 97.5 H, MCH 30.8, MCHC 31.6 L, RDW Std Deviation 51.2 H, RDW Coeff of Babita 14.4, Plt Count 185, MPV 10.7, Immature Gran % (Auto) 0.200, Neut % (Auto) 67.3, Lymph % (Auto) 23.7, [place] % (Auto) 6.2, Eos % (Auto) 1.9, Baso % (Auto) 0.7, Absolute Neuts (auto) 5.6, Absolute Lymphs (auto) 1.96, Nucleated RBC % 0 03/03/19 09:23: Sodium 145, Potassium 4.1, Chloride 104, Carbon Dioxide 39.0 H, Anion Gap 2 L, BUN 19 H, Creatinine 0.94, Estim Creat Clear Calc 82.55, Est GFR (MDRD) Af Amer 102, Est GFR (MDRD) Non-Af 85, BUN/Creatinine Ratio 20.2 H, Glucose 92, Calcium 9.3, Troponin I 0.063 H 03/03/19 09:23: B-Natriuretic Peptide 1051.3 H 03/03/19 09:23: PT 14.8, INR 1.2, APTT 28.1 Assessment/Plan All Active Problems (Last Reviewed 03/03/19 @ 11:10 by Yimi Castro MD) Diastolic CHF, acute on chronic (Acute) Pericardial effusion (Acute) Anasarca (Acute) Pleural effusion (Acute) Patient is a 68-year-old gentleman 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 Acute congestive heart failure with preserved ejection fraction ~ Patient has been admitted to monitored bed as part of his management patient was placed on daily input and output, daily weights, restriction, low-sodium diet. Patient was placed on Lasix, 2D echo obtained on 01/09/2019 demonstrated EF of 60% 2. Bilateral pleural effusions ~due to above plan is to treat the underlying condition 3. Amyloidosis ~Diagnosis was based on an outpatient renal biopsy obtained as a result of proteinuria. Patient has followed up with Dr. Plaza with oncology plan was for patient to have undergone port placement on 03/03/2019 with initiation induction chemotherapy prior to evaluation for bone marrow transplant. Consult placed to Dr. Renee to have the procedure performed once patient is in the hospital 4. Essential hypertension ~Continued patient home meds once his meds have been reconciled 5. Hypothyroidism ~patient is on levothyroxine home dose continued 6. Nephrotic syndrome ?Secondary to amyloidosis management as discussed above 7. DVT prophylaxis ~ on enoxaparin Advance planning; did discuss with the patient and family regarding advanced directives as well as CODE STATUS. Did explain the various scenarios involved ( FULL CODE, DNR CCA, DNR CCA with no intubation, and DNR CC and what each meant) patient elected remain full code with intubation and CPR if needed.. Order was placed. Time spent on discussion 18 minutes. Clinical Impression(s) from Imaging Studies Chest X-Ray 03/03/19 09:43 IMPRESSION: Mild to moderate bilateral pleural effusions Electronically Signed: Lai Rayo MD at 10:25 EST , Service support , Code Visit Inpatient E&M: 63269 Init Hosp L3 Procedures: 37048 Advncd Care Plan 30 Min
--- NOTE | 2019-03-03 13:14 | PCM.PN.BLA ---
Progress Note Chief complaint- tachypnea HISTORY OF PRESENT ILLNESS: Mr. Moss is a 68 y/o WM who was scheduled for portacath placement at [facility] this morning. However, he presented with tachypnea and low oxygen saturation. CXR revealed possible right pleural effusion. Further workup was deferred, as patient wanted to return to [place]. Patient evaluated at [facility] ED and found to have acute on chronic CHF with elevated BNP, etc. He still requires portacath placement for planned chemotherapy treatment on Saturday. Will try to find OR time (as well as time in my schedule) to have portacath placed this week. PAST MEDICAL HISTORY ? Acute diastolic CHF (congestive heart failure) (HCC) 02/11/2019 ? Acute diastolic CHF (congestive heart failure) (HCC) 02/11/2019 ? Allergic rhinitis, cause unspecified 09/10/2005 ? Essential hypertension, benign 09/10/2005 ? Pure hyperglyceridemia 09/10/2005 ? PAST SURGICAL HISTORY ? NONE ? ? ? PAST SURGICAL HISTORY OF Left ? ? ankle repair with hardware ?? Current Outpatient Medications ? acyclovir (ZOVIRAX) 400 mg tablet Take 1 tablet by mouth twice daily. ? ondansetron (ZOFRAN) 4 mg tablet Take 1 tablet by mouth every 8 hours as needed. FOR NAUSEA ? furosemide (LASIX) 40 mg tablet Take 1 tablet by mouth once daily. ? doxycycline hyclate (VIBRAMYCIN) 100 mg capsule Take 1 capsule by mouth twice daily. ? levothyroxine (LEVOXYL) 25 mcg tablet Take 1 tablet by mouth daily before breakfast. ? lisinopril (PRINIVIL) 5 mg tablet Take 1 tablet by mouth once daily. ? metoprolol succinate ER (TOPROL XL) 200 mg 24 hr tablet Take 1 tablet by mouth once daily. ?? ALLERGIES: Patient has no known allergies. ? PERSONAL HISTORY: ? Smoking status: Former Smoker ? ? Packs/day: 0.50 ? ? Years: 3.00 ? ? Pack years: 1.50 ? ? Types: Cigarettes ? ? Last attempt to quit: 12/04/1979 ? ? Years since quittin.2 ? Smokeless tobacco: Former User ? ? Types: Chew ? ? Quit date: 02/11/2011 Substance Use Topics ? Alcohol use: Yes ? ? Comment: occasional beer ? Drug use: No FAMILY HISTORY ? None Mother ? ? None Father ? ? ? REVIEW OF SYSTEMS: CONSTITUTIONAL: ?No fevers, chills, nightsweats, unintended weight loss HEENT: ?Denies frequent or severe heaches, nasal congestion/sinus symptoms, problematic allergy problems. EYES: ?No diplopia or blurry vision. CARDIOVASCULAR: ?No chest pain, dyspnea, palpitations, orthopnea, PND, +?ankle edema. PULM: ?No dyspnea, unexplained cough. GI: ?No dysphagia/odynophagia, problematic reflux, constipation, diarrhea, changes in stool habits, hematochezia, melena. : ?No new urinary complaints, including dysuria, gross hematuria or pyuria. NEURO: ?No new balance problems, peripheral weakness/paresthesias or numbness of concern. MUSC-SKEL: ?No new joint pain, swelling, or erythema. PSY: ?No concerns regarding depression, anxiety or panic. INTEGUMENTARY: ?No new skin changes (rash, new or changing mole, new growth), No easy bruising. ? PHYSICAL EXAMINATION: General: The patient is 68 year old male, well nourished, well hydrated in no acute distress. The patient is oriented to time, place, and person. VITALS: Ht: 5'9 Wt: 211# Blood pressure 134/78, pulse 102. Head ? Normocephalic. EOM intact with sclera clear and no icterus noted. Wearing glasses. Mouth with mucus membranes moist. Neck - supple with no jugular venous distention noted. Trachea is midline. . Lungs ? tachypneic, labored breathing noted. Heart ? normal S1 and S2 auscultated. No rubs/clicks/murmurs noted. Regular rate. Abdomen ? soft and benign. Normal bowel sounds. Extremities ? no pitting edema noted. Skin ? normal skin integrity. Neurological ? gait normal, no focal deficits noted. Psych ? calm and appropriate ?? IMPRESSION: need for IV access for chemotherapy for plasma cell dyscrasia, admitted for acute on chronic CHF ? PLAN: I have discussed the above with the patient. I have offered portacath placement. I have explained the procedure to the patient. I have counseled the patient as to the risks of the procedure, including but not limited to: infection, bleeding, injury to any blood vessels/nerves, scar tissue, injury to the lungs such as hemothorax and/or pneumothorax, thrombosis of vessel of catheter, catheter infection, non functioning of portacath, wound infections, complications of anesthesia, etc. ? the patient understands. The patient wishes to proceed. Will try to find time for this procedure tomorrow or STROKE Vital Signs/Narrative: Vital Signs Temp Pulse Resp BP Pulse Ox 03/03/19 12:15 97 03/03/19 11:27 81 03/03/19 11:20 97.5 F L 83 18 146/98 H 100
[2019-03-03] MEDS: Furosemide 100 MG/10 ML Vial 60 MG IV ×2 (13:34→22:05)
[2019-03-03] MEDS: 0.9% Saline Lock 10 ML Syringe IV ×3 (13:35→22:09)
[2019-03-03] MEDS: Acyclovir 200 MG Capsule 400 MG PO ×2 (15:19→22:05)
[2019-03-03] MEDS: Doxycycline 100 MG CAPSULE PO ×2 (15:19→22:05)
[2019-03-03] MEDS: Lisinopril 5 MG Tablet PO (15:20)
[2019-03-03] MEDS: Cefazolin 2 GM in 0.9% Normal Saline 100 ML IV (21:58)
[2019-03-04] VITALS (20 sets, daily range): BP systolic 90–130; BP diastolic 51–82; PULSE 73–98; RESP 16–24; TEMP 36.3–37.5; O2SAT 91–98; BMI 28.8; BMI 28.9
--- NOTE | 2019-03-04 05:45 | NURSING ---
Pt. gordon and coin purse locked in room med drawer per pt. request.
--- NOTE | 2019-03-04 06:24 | NURSING ---
Report given to Jessy MEJÍA in [facility] via phone, pt. ready to go to [facility]. VSS
[2019-03-04 06:26] LABS: Absolute Lymphocyte Count 1.37 X10^3/uL (0.83-4.51); Absolute Neutrophil Count 3.6 X10^3/uL (2.0-7.7); Basophil# 0.03 X10^3/uL; Basophil% 0.5 % (0-1); Eosinophil# 0.26 X10^3/uL; Eosinophils% 4.5 % (0-5); Hematocrit 39.5 % (40-54); Hemoglobin 12.1 g/dL (13.0-16.5); Lymphocyte # 1.37 X10^3/ul (4.0); Lymphocyte % 23.8 % (19-41); Mean Corp Hgb Conc 30.6 g/dL (32-36); Mean Corpuscular Hgb 30.3 pg (27.0-32.0); Mean Corpuscular Volume 98.8 fL (80-94); Mean Platelet Vol. 10.7 fl (6.2-12.0); Monocyte# 0.44 X10^3/uL; Monocyte% 7.7 % (0-10); NRBC Flagged by Analyzer 0 % (0-5); Neutrophil # 3.64 X10^3/uL (2.7-7.7); Neutrophil % 63.3 % (47-70); Platelet Count 152 K/mm3 (150-450); RBC Distribution Width CV 14.6 % (11.6-14.6); RBC Distribution Width SD 53.5 fl (35.1-43.9); White Blood Count 5.8 K/mm3 (4.4-11.0)
[2019-03-04] MEDS: Lactated Ringers 1,000 ML 100 ML IV (06:50)
[2019-03-04 06:52] LABS: Anion Gap 0 (5-15); BUN 19 mg/dL (7-18); BUN/Creat Ratio 19.8 RATIO (10-20); Calcium,Total 8.5 mg/dL (8.5-10.1); Chloride 102 mmol/L (98-107); Creatinine, Serum 0.96 mg/dL (0.70-1.30); EST Glomerular Filtration Rate 83 mL/min (>60); Est Glom Filt Rate - Afr Amer 100 mL/min (>60); Estimated Creatinine Clearance 80.83 ml/min; Glucose 96 mg/dL (74-106); Potassium 4.2 mmol/L (3.5-5.1); Sodium Level 146 mmol/L (136-145)
[2019-03-04] MEDS: Cefazolin 2 GM in 0.9% Normal Saline 100 ML IV (07:20)
--- NOTE | 2019-03-04 07:22 | DCINST_ITS ---
Discharge Diet: No Restrictions Discharge Activity: Return to Normal Activity, May not drive while taking narcotic pain medications. Call your doctor if your incision/area has: Continuous Slow Oozing, Foul Smelling Discharge Allergies/Adverse Reactions: Allergies No Known Allergies Allergy (Verified 03/03/19 09:10) Medications to take at Discharge metoprolol succinate ER 200 mg tablet,extended release 24 hr 200 mg PO DAILY #90 tab 01/26/19 Acyclovir 400 mg PO BID 03/03/19 Doxycycline Hyclate 100 ng PO BID 03/03/19 Furosemide 40 mg PO DAILY 03/03/19 Levothyroxine Sodium 25 mcg PO DAILY@0600 03/03/19 Lisinopril 5 mg PO DAILY 03/03/19 Primary Care Physician: Gerry Pate DO [Primary Care Provider] - Test Results: Test results from this visit will be discussed in further detail at your follow- up appointment, if applicable. Please Follow Up With: Ava Renee MD - call When: as per needed, if any problems, please call for an appointment
--- NOTE | 2019-03-04 08:11 | RAD_ITS ---
STUDY: X-RAY CHEST REASON FOR EXAM: Male, 68 years old. Line placement. TECHNIQUE: Single AP portable view of the chest. COMPARISON: Comparison is made with prior study dated March 03, 2019. FINDINGS: A right sided bob catheter has been placed. The tip is in the proximal portion of the superior vena cava. Progressive pleural-parenchymal changes at the right lung base. Stable pleural parenchymal changes at the left lung base. There is mild cardiac enlargement. Normal mediastinum and eric. Normal visualized pulmonary arteries. Normal visualized aortic arch and descending thoracic aorta. There are diffuse degenerative changes of the visualized thoracic spine. Normal visualized ribs, clavicles, and shoulders. There is no demonstrated abnormality of the visualized soft tissue structures of the upper abdomen. RAD/CXR for Line Placement IMPRESSION: The tip of the right sided portacatheter is in the proximal portion of the superior vena cava. Bilateral pleural-parenchymal changes worse on the right side. Electronically Signed: Rory Rosa, at 9:24 EST , Service support ,
--- NOTE | 2019-03-04 08:12 | PCM.OPRPT ---
Report of Operation Date of Procedure: 03/04/19 Pre-Operative Diagnosis: plasma cell dyscrasia, need for IV access for chemotherapy Post-Operative Diagnosis: same Surgery/Procedure Performed:: placement of permanent indwelling tunnelled catheter in right internal jugular vein with subcutaneous port (with use of fluoroscopy and ultrasound guidance) Description of Surgical Findings:: normal right IJ anatomy to SVC, small right pleural effusion Type of Anesthesia:: Local MAC Anesthesiologist: Maurizio Felix Specimen's removed: none Estimated Blood Loss (mL): < 10 ml Fluids Replaced: 150 ml RL Description of Procedure: After informed consent was given, the patient was brought to the operating room and placed in the supine position. He was then given IV conscious sedation for anesthesia. The patient?s upper chest and neck were then prepped with a surgical skin preparation and sterile surgical drapes were placed. After proper landmarks were ascertained, the skin at the upper right neck and chest area was then infiltrated with 1% xylocaine with epinephrine. US probe was brought up in a sterile sheath to localized right internal jugular vein. Then under US guidance - real time, a needle trocar was then inserted into the right internal jugular vein and there was good aspiration of venous blood. A wire was then threaded into the needle trocar and this was visualized under fluoroscopy to ensure that the wire was in the right internal jugular vein. Once this was done, then the needle trocar was removed. A small skin judit was made with an 11 blade knife at the wire entrance site. The dilator with the introducer sheath attached was then placed over the wire into the right internal jugular vein via the Seldinger technique and this was visualized under fluoroscopy. The dilator and sheath were in proper position as visualized by fluoroscopy. The wire and dilator were then removed. The catheter was then threaded into the introducer sheath and was positioned with its tip at the junction of the superior vena cava and the right atrium as visualized under fluoroscopy. The catheter was flushed with a heparin saline mixture prior to placement. A subcutaneous pocket was then created caudad to the catheter insertion site. A transverse skin incision was made after the skin and subcutaneous tissues were infiltrated with local anesthetic. Blunt dissection was then used to create a space large enough for placement of the subcutaneous port. Hemostasis was carefully controlled with electrocautery. The port was sutured to the subcutaneous fascia using vicryl suture at three sites. The catheter was then tunneled into the subcutaneous pocket. The excess catheter was transected. The catheter was then attached to the subcutaneous port using pathologist assistant?s guidelines. The port was then placed in the subcutaneous pocket and the sutures were ligated. The subdermal incisional sites were reapproximated with interrupted vicryl suture. The skin was reapproximated with monocryl suture in a subcuticular fashion. Cavilon and steristrips were used for reinforcement of the skin closure and a sterile opsite dressing was applied. The port was accessed and there was easy aspiration of blood, it was then flushed with heparinized saline. Patient was brought to the Recovery Room in stable condition. Grafts/Implants Used: [employer] PowerPort Lot#[id number], exp 2020-07-29 - Complications none noted - Admit VTE Documentation VTE Present on Admission: Yes VTE Mechan Device Prophylaxis: SCD's
--- NOTE | 2019-03-04 08:44 | PCM.PN.HOSP ---
Patient Problems: Active and Suspected Problems (Last Reviewed 03/03/19 @ 11:10 by Yimi Castro MD) Diastolic CHF, acute on chronic (Acute) Reason for Visit: CHF. Subjective: Underwent placement of permanent indwelling tunnelled catheter in right internal jugular vein with subcutaneous port (with use of fluoroscopy and ultrasound guidance)by Dr Renee Objective: GENERAL: cooperative HEENT: Atraumatic; EYES; Anicteric, Normal Conjunctiva NECK; supple, normal thyroid, RESPIRATORY: Diminished to auscultation CARDIOVASCULAR: Regular S1 S2, GI: soft, normoactive bowel sounds, : No Renal angle tenderness; EXTREMITIES: Bipedal edema, no clubbing, MUSCULOSKELETAL: no muscle waisting NEURO: Awake; no lateralizing signs. SKIN: No Rash PSYCH; Flat affect Vitals/I&O's: Vital Signs Temp Pulse Resp BP Pulse Ox 98.1 F 95 18 92/61 93 03/04/19 08:23 03/04/19 08:33 03/04/19 08:33 03/04/19 08:33 03/04/19 08:33 Oxygen Flow Rate (L/min) 4 Oxygen Delivery Method Room Air Weight: 96.6 kg Body Mass Index (BMI) 28.8 Intake and Output for Last 24 Hours 03/02/19 03/03/19 03/04/19 23:59 23:59 23:59 Intake Total 867.75 / 867.75 0 / 0 Output Total 2125 / 2125 625 / 625 Balance -1257.25 / -1257.25 -625 / -625 Laboratory Results 03/03/19 09:23: WBC 8.3, RBC 4.38 L, Hgb 13.5, Hct 42.7, MCV 97.5 H, MCH 30.8, MCHC 31.6 L, RDW Std Deviation 51.2 H, RDW Coeff of Babita 14.4, Plt Count 185, MPV 10.7, Immature Gran % (Auto) 0.200, Neut % (Auto) 67.3, Lymph % (Auto) 23.7, Chaves % (Auto) 6.2, Eos % (Auto) 1.9, Baso % (Auto) 0.7, Absolute Neuts (auto) 5.6, Absolute Lymphs (auto) 1.96, Nucleated RBC % 0 03/03/19 09:23: Sodium 145, Potassium 4.1, Chloride 104, Carbon Dioxide 39.0 H, Anion Gap 2 L, BUN 19 H, Creatinine 0.94, Estim Creat Clear Calc 82.55, Est GFR (MDRD) Af Amer 102, Est GFR (MDRD) Non-Af 85, BUN/Creatinine Ratio 20.2 H, Glucose 92, Calcium 9.3, Troponin I 0.063 H 03/03/19 09:23: B-Natriuretic Peptide 1051.3 H 03/03/19 09:23: PT 14.8, INR 1.2, APTT 28.1 03/03/19 12:04: Troponin I 0.062 H 03/03/19 15:20: Troponin I 0.050 H 03/04/19 06:05: Sodium 146 H, Potassium 4.2, Chloride 102, Carbon Dioxide 44.0 H, Anion Gap 0 L, BUN 19 H, Creatinine 0.96, Estim Creat Clear Calc 80.83, Est GFR (MDRD) Af Amer 100, Est GFR (MDRD) Non-Af 83, BUN/Creatinine Ratio 19.8, Glucose 96, Calcium 8.5, Magnesium 2.0 03/04/19 06:05: WBC 5.8, RBC 4.00 L, Hgb 12.1 L, Hct 39.5 L, MCV 98.8 H, MCH 30.3, MCHC 30.6 L, RDW Std Deviation 53.5 H, RDW Coeff of Babita 14.6, Plt Count 152, MPV 10.7, Immature Gran % (Auto) 0.200, Neut % (Auto) 63.3, Lymph % (Auto) 23.8, Chaves % (Auto) 7.7, Eos % (Auto) 4.5, Baso % (Auto) 0.5, Absolute Neuts (auto) 3.6, Absolute Lymphs (auto) 1.37, Nucleated RBC % 0 Current Medications Acetaminophen (Tylenol) 650 mg PO Q6H PRN PRN PRN Reason: Pain Score 1-3/Temp > 100.7 F Hydrocodone Bitart/Acetaminophen ([place] 5mg-325mg) 1 tablet PO Q4H PRN PRN PRN Reason: Pain Score 6-10/10 Acyclovir (Zovirax) 400 mg PO BID [facility]LE[facility] Last Admin: 03/03/19 22:05 Dose: 400 mg Documented by: Al Hydroxide/Mg Hydroxide (Mylanta Ii) 30 ml PO Q6H PRN PRN PRN Reason: Gastric Burning Albuterol Sulfate (Ventolin Aerosols) 2.5 mg INHALATION Q2H PRN PRN PRN Reason: SOB/Wheezing Doxycycline Monohydrate (Doxycycline) 100 mg PO BID [facility] Last Admin: 03/03/19 22:05 Dose: 100 mg Documented by: Enoxaparin Sodium (Lovenox) 40 mg SC DAILY@0600 [facility] Last Admin: 03/04/19 02:38 Dose: Not Given Documented by: Furosemide (Lasix) 60 mg IV Q8 [facility] Last Admin: 03/04/19 02:39 Dose: Not Given Documented by: Guaifenesin (Robitussin) 20 ml PO Q4H PRN PRN PRN Reason: COUGH Sodium Chloride () 250 mls @ 15 mls/hr IV .[id number] PRN PRN Reason: Saline Flush Last Infusion: 03/03/19 23:47 Dose: 0 mls/hr Documented by: Lactated Ringer's () 1,000 mls @ 100 mls/hr IV .Q10H [facility] Last Admin: 03/04/19 06:50 Dose: 100 mls/hr Documented by: Levothyroxine Sodium (Synthroid) 25 mcg PO DAILY@0600 [facility] Lisinopril (Zestril) 5 mg PO DAILY [facility] Last Admin: 03/03/19 15:20 Dose: 5 mg Documented by: Magnesium Hydroxide (Milk Of Magnesia) 30 ml PO DAILY PRN PRN PRN Reason: Constipation Melatonin (Melatonin) 3 mg PO QHS PRN PRN PRN Reason: INSOMNIA Metoprolol Succinate (Toprol Xl (Beta Zak)) 200 mg PO DAILY [facility] Nitroglycerin (Nitrostat) 0.4 mg SUBLINGUAL Q5M PRN PRN Reason: CARDIAC/CHEST PAIN Ondansetron HCl (Zofran) 4 mg IV Q8H PRN PRN PRN Reason: NAUSEA/VOMITING Oxycodone HCl (Oxyir) 5 mg PO Q4H PRN PRN PRN Reason: Pain Score 4-5/10 Sodium Chloride () 10 - 40 ml IV UD PRN PRN Reason: SALINE FLUSH Last Admin: 03/03/19 22:09 Dose: 10 ml Documented by: Sodium Chloride () 250 ml IV UD PRN PRN Reason: Hypotension STROKE Vital Signs/Narrative: Vital Signs Temp Pulse Resp BP Pulse Ox 03/04/19 08:33 95 18 92/61 93 03/04/19 08:28 96 18 92/63 92 03/04/19 08:23 98.1 F 98 18 90/65 91 03/04/19 06:50 87 03/04/19 05:37 97.7 F L 84 20 H 130/82 H 94 03/04/19 05:33 97.7 F L 88 20 H 130/82 H 95 Medical Necessity - Tobacco Use Smoking Status: Former smoker Tobacco Use: Cigarettes, Chew Assessment/Plan All Active Problems (Last Reviewed 03/03/19 @ 11:10 by Yimi Castro MD) Diastolic CHF, acute on chronic (Acute) Pericardial effusion (Acute) Anasarca (Acute) Pleural effusion (Acute) Patient is a 68-year-old gentleman 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 Acute congestive heart failure with preserved ejection fraction ~ Patient has been admitted to monitored bed as part of his management patient was placed on daily input and output, daily weights, restriction, low-sodium diet. Patient was placed on Lasix, 2D echo obtained on 01/09/2019 demonstrated EF of 60% ?03/04/2019. Patient is in a negative fluid balance of 1.8 L since admission. Did continue with Lasix 2. Bilateral pleural effusions ~due to above plan is to treat the underlying condition 3. Amyloidosis ~Diagnosis was based on an outpatient renal biopsy obtained as a result of proteinuria. Patient has followed up with Dr. Plaza with oncology plan was for patient to have undergone port placement on 03/03/2019 with initiation induction chemotherapy prior to evaluation for bone marrow transplant. Consult placed to Dr. Renee to have the procedure performed once patient is in the hospital ?03/04/2019 Underwent placement of permanent indwelling tunnelled catheter in right internal jugular vein with subcutaneous port (with use of fluoroscopy and ultrasound guidance)by Dr Renee 4. Essential hypertension ~Continued patient home meds once his meds have been reconciled 5. Hypothyroidism ~patient is on levothyroxine home dose continued 6. Nephrotic syndrome ?Secondary to amyloidosis management as discussed above 7. DVT prophylaxis ~ on enoxaparin Code Visit Inpatient E&M: 38598 Subs Hosp L2
[2019-03-04] MEDS: Levothyroxine 25 MCG TABLET PO (09:29)
[2019-03-04] MEDS: Metoprolol(XL)Succ 200 MG Tablet PO (09:29)
[2019-03-04] MEDS: Lisinopril 5 MG Tablet PO (09:30)
[2019-03-04] MEDS: Acyclovir 200 MG Capsule 400 MG PO ×2 (09:40→21:34)
[2019-03-04] MEDS: Doxycycline 100 MG CAPSULE PO ×2 (09:40→21:34)
--- NOTE | 2019-03-04 09:56 | CASEMGMT ---
Addendum entered by Sumi Bland 03/04/19 10:10: Pt also sees Dr Whitley--cardiology and Dr Renee for Port placement. Original Note: RN CM HOIST OPERATOR CM to room to meet with patient for initial transition planning/care coordination assessment. KYM ACKERMAN introduced self and role at [facility]. Pt voices understanding and consents to assessment at this time. Pt resting in bed in no distress at this time. He has just returned from having PORT placed. Pt is A/O at this time and answers all questions appropriately. Care providers, pharmacy, and demographics verified at this time. PCP: [facility]: [facility] (oncology), Preferred Pharmacy: [facility] Insurance: [employer]-ZONE. Prescription Benefit: Yes Living Will/HPOA: Has both LW and HCPOA, who is his Girlfriend/Significant other, Juany Curiel. Pt aware these records are not on file @ [facility]. Pt advised to have Juany bring in copies of these to be placed on file @ [facility]. Pt voices understanding. LNOK: No children and parents are . Has 2 living sisters, but states they are not involved in his life and does not want them listed. States the only person he wants listed on demographics is Juany. Living Arrangements: Lives with his GF/Significant other, Juany, and her son. They live in a 2-story home and denies difficulty with stairs. is independent and still works full-time. Plans to retire Mar 31 but then plans to still work 3 days/week, 8-hr days. Transportation: Pt states drives self and states no transportation concerns at this time. Juany also drives and plans to take him home @ discharge. DME: has a nebulizer but has not needed to use it since December. Does not have home O2. Pt states no need for further DME at this time. If would need O2 @ discharge, does not have preference of DME company. HHC/SNF: No history of either. No needs identified. Pt wishes to return home and states has no concerns with going home at time of discharge. CM to follow for home oxygen needs and any further discharge planning/needs. Pt voices no further concerns/needs at this time. Advised pt to ask for CM if any further questions/concerns/needs arise. Voices understanding. Pt plan: Home Plan: Home Lin KRAMER RN, CM
--- NOTE | 2019-03-04 10:23 | CASEMGMT ---
Case management let pt know that LW/POA forms not on file and advised to have the forms brought into the hospital. MIMI Mclaughlin
[2019-03-04] MEDS: 0.9% Saline Lock 10 ML Syringe IV ×2 (13:36→21:40)
[2019-03-04] MEDS: Furosemide 100 MG/10 ML Vial 60 MG IV ×2 (13:36→21:34)
[2019-03-04] MEDS: HYDROcodone Bitartrate/Apap 5/325 Tablet PO (13:36)
[2019-03-05] VITALS (15 sets, daily range): BP systolic 75–121; BP diastolic 45–94; PULSE 62–99; RESP 16–28; TEMP 36.7–37.4; O2SAT 93–97
[2019-03-05] MEDS: Furosemide 100 MG/10 ML Vial 60 MG IV (05:11)
[2019-03-05] MEDS: Levothyroxine 25 MCG TABLET PO (05:11)
[2019-03-05] MEDS: Enoxaparin 40 MG/0.4 ML Syringe SC (05:11)
[2019-03-05] MEDS: 0.9% Saline Lock 10 ML Syringe IV (05:17)
[2019-03-05 07:02] LABS: Anion Gap -1 (5-15); BUN 26 mg/dL (7-18); Calcium,Total 8.5 mg/dL (8.5-10.1); Chloride 101 mmol/L (98-107); Creatinine, Serum 1.18 mg/dL (0.70-1.30); EST Glomerular Filtration Rate 65 mL/min (>60); Est Glom Filt Rate - Afr Amer 79 mL/min (>60); Estimated Creatinine Clearance 65.76 ml/min; Glucose 104 mg/dL (74-106); Potassium 4.1 mmol/L (3.5-5.1); Sodium Level 144 mmol/L (136-145)
[2019-03-05] MEDS: HYDROcodone Bitartrate/Apap 5/325 Tablet PO (08:25)
[2019-03-05] MEDS: Doxycycline 100 MG CAPSULE PO ×2 (09:43→21:30)
[2019-03-05] MEDS: Acyclovir 200 MG Capsule 400 MG PO ×2 (09:43→21:30)
--- NOTE | 2019-03-05 09:45 | DCINST_ITS ---
- Discharge Diagnoses Current Active Problems: Current Active and Chronic Problems (Last Reviewed 03/03/19 @ 11:10 by Yimi Castro MD) Nephrotic syndrome (Chronic) Amyloidosis (Chronic) Diastolic CHF (Chronic) Diastolic CHF, acute on chronic (Acute) You will use the following diet at home:: Fluid restricted (specify 2000 mls, 1500 mls) - 1500 Discharge Activity: Return to Normal Activity, May not drive while taking narcotic pain medications. Call your doctor if your incision/area has: Continuous Slow Oozing, Foul Smelling Discharge Call your doctor if you observe: Shortness of breath Allergies/Adverse Reactions: Allergies No Known Allergies Allergy (Verified 03/03/19 09:10) Medications to take at Discharge metoprolol succinate ER 200 mg tablet,extended release 24 hr 200 mg PO DAILY #90 tab 01/26/19 Acyclovir 400 mg PO BID 03/03/19 Doxycycline Hyclate 100 ng PO BID 03/03/19 Levothyroxine Sodium 25 mcg PO DAILY@0600 03/03/19 Lisinopril 5 mg PO DAILY 03/03/19 Furosemide 40 mg PO BID #120 tab 03/05/19 The following prescriptions were given: Furosemide 40 mg PO BID #120 tab Transmission Status: Pending to [facility] #30 Primary Care Physician: Gerry Pate DO [Primary Care Provider] - Please follow up with your Primary Care Physician in: in 5-7 days Test Results: Test results from this visit will be discussed in further detail at your follow- up appointment, if applicable. Please Follow Up With: Ava Renee MD When: as per needed, if any problems, please call for an appointment Please Follow Up With: Gerry Pate DO Please Follow Up With: Alek Crowder MD When: as scheduled Proposed Discharge Date: 03/05/19
--- NOTE | 2019-03-05 09:46 | DS.PCM_ITS ---
Discharge Date and Diagnosis - Problem List Patient Problems: Active and Suspected Problems (Last Reviewed 03/03/19 @ 11:10 by Yimi Castro MD) Diastolic CHF, acute on chronic (Acute) Date of Admission: 03/03/19 - Primary Discharge Diagnosis Active and Suspected Problems (Last Reviewed 03/03/19 @ 11:10 by Yimi Castro MD) Diastolic CHF, acute on chronic (Acute) - Secondary Discharge Diagnosis Chronic Problems (Last Reviewed 03/03/19 @ 11:10 by Yimi Castro MD) Nephrotic syndrome (Chronic) Amyloidosis (Chronic) Diastolic CHF (Chronic) Proteinuria (Chronic) CHF (congestive heart failure) (Chronic) Essential (primary) hypertension (Chronic) Hospital Course and Treatment Operations: None Summary of Care Provided: The patient is a 68 year old M [] Patient Problems: Active and Suspected Problems (Last Reviewed 03/03/19 @ 11:10 by Yimi Castro MD) Diastolic CHF, acute on chronic (Acute) - Physical Exam Vitals/I&O's: Vital Signs Temp Pulse Resp BP Pulse Ox 98.0 F 77 28 H 75/50 L 93 03/05/19 09:30 03/05/19 09:30 03/05/19 09:30 03/05/19 09:46 03/05/19 09:30 Oxygen Flow Rate (L/min) 2 Oxygen Delivery Method Nasal Cannula Weight: 95.1 kg Body Mass Index (BMI) 28.8 Intake and Output for Last 24 Hours 03/03/19 03/04/19 03/05/19 23:59 23:59 23:59 Intake Total 867.75 / 867.75 1560 / 1800 480 / 480 Output Total 2125 / 2125 1000 / 1375 675 / 675 Balance -1257.25 / -1257.25 560 / 425 -195 / -195 Laboratory Results 03/05/19 06:20: Sodium 144, Potassium 4.1, Chloride 101, Carbon Dioxide 44.0 H, Anion Gap -1 L, BUN 26 H, Creatinine 1.18, Estim Creat Clear Calc 65.76, Est GFR (MDRD) Af Amer 79, Est GFR (MDRD) Non-Af 65, BUN/Creatinine Ratio 22.0 H, Glucose 104, Calcium 8.5 Current Medications Acetaminophen (Tylenol) 650 mg PO Q6H PRN PRN PRN Reason: Pain Score 1-3/Temp > 100.7 F Hydrocodone Bitart/Acetaminophen ([place] 5mg-325mg) 1 tablet PO Q4H PRN PRN PRN Reason: Pain Score 6-10/10 Last Admin: 03/05/19 08:25 Dose: 1 tablet Documented by: Acyclovir (Zovirax) 400 mg PO BID [facility] Last Admin: 03/05/19 09:43 Dose: 400 mg Documented by: Al Hydroxide/Mg Hydroxide (Mylanta Ii) 30 ml PO Q6H PRN PRN PRN Reason: Gastric Burning Albuterol Sulfate (Ventolin Aerosols) 2.5 mg INHALATION Q2H PRN PRN PRN Reason: SOB/Wheezing Doxycycline Monohydrate (Doxycycline) 100 mg PO BID [facility] Last Admin: 03/05/19 09:43 Dose: 100 mg Documented by: Enoxaparin Sodium (Lovenox) 40 mg SC DAILY@0600 [facility] Last Admin: 03/05/19 05:11 Dose: 40 mg Documented by: Furosemide (Lasix) 60 mg IV Q8 [facility] Last Admin: 03/05/19 05:11 Dose: 60 mg Documented by: Guaifenesin (Robitussin) 20 ml PO Q4H PRN PRN PRN Reason: COUGH Sodium Chloride () 250 mls @ 15 mls/hr IV .[id number] PRN PRN Reason: Saline Flush Last Infusion: 03/04/19 09:30 Dose: Infused Documented by: Levothyroxine Sodium (Synthroid) 25 mcg PO DAILY@0600 [facility] Last Admin: 03/05/19 05:11 Dose: 25 mcg Documented by: Lisinopril (Zestril) 5 mg PO DAILY [facility] Last Admin: 03/04/19 09:30 Dose: 5 mg Documented by: Magnesium Hydroxide (Milk Of Magnesia) 30 ml PO DAILY PRN PRN PRN Reason: Constipation Melatonin (Melatonin) 3 mg PO QHS PRN PRN PRN Reason: INSOMNIA Metoprolol Succinate (Toprol Xl (Beta Zak)) 200 mg PO DAILY [facility] Last Admin: 03/04/19 09:29 Dose: 200 mg Documented by: Nitroglycerin (Nitrostat) 0.4 mg SUBLINGUAL Q5M PRN PRN Reason: CARDIAC/CHEST PAIN Nutritional Formula (Lactose Free) (Ensure Enlive) 120 ml PO 4X/DAY [facility] Last Admin: 03/05/19 09:26 Dose: Not Given Documented by: Ondansetron HCl (Zofran) 4 mg IV Q8H PRN PRN PRN Reason: NAUSEA/VOMITING Oxycodone HCl (Oxyir) 5 mg PO Q4H PRN PRN PRN Reason: Pain Score 4-5/10 Sodium Chloride () 10 - 40 ml IV UD PRN PRN Reason: SALINE FLUSH Last Admin: 03/05/19 05:17 Dose: 10 ml Documented by: Sodium Chloride () 250 ml IV UD PRN PRN Reason: Hypotension Discharge Diet: No Restrictions Discharge Activity: Return to Normal Activity, May not drive while taking narcotic pain medications. Call your doctor if your incision/area has: Continuous Slow Oozing, Foul Smelling Discharge Call your doctor if you observe: Shortness of breath Home Medications: Medications to take at Discharge metoprolol succinate ER 200 mg tablet,extended release 24 hr 200 mg PO DAILY #90 tab 01/26/19 Acyclovir 400 mg PO BID 03/03/19 Doxycycline Hyclate 100 ng PO BID 03/03/19 Levothyroxine Sodium 25 mcg PO DAILY@0600 03/03/19 Lisinopril 5 mg PO DAILY 03/03/19 Furosemide 40 mg PO BID #120 tab 03/05/19 Following Prescrptions Were Given to Patient: Furosemide 40 mg PO BID #120 tab Transmission Status: Pending to [facility]30 Primary Care Physician: Gerry Pate DO [Primary Care Provider] - Please follow up with your Primary Care Physician in: in 5-7 days Please Follow Up With: Ava Renee MD When: as per needed, if any problems, please call for an appointment Please Follow Up With: Gerry Pate DO Please Follow Up With: Alek Crowder MD When: as scheduled Medical Necessity - Tobacco Use Smoking Status: Former smoker Tobacco Use: Cigarettes, Chew
--- NOTE | 2019-03-05 10:03 | PHA.DC.MR ---
Pharmacy Service has performed discharge medication reconciliation for this patient. Home Medications metoprolol succinate ER 200 mg tablet,extended release 24 hr 200 mg PO DAILY #90 tab 01/26/19 Acyclovir 400 mg PO BID 03/03/19 Doxycycline Hyclate 100 ng PO BID 03/03/19 Levothyroxine Sodium 25 mcg PO DAILY@0600 03/03/19 Lisinopril 5 mg PO DAILY 03/03/19 Furosemide 40 mg PO BID #120 tab 03/05/19 The patient's discharge medication list was reviewed for discrepancies and discrepancies were resolved.
--- NOTE | 2019-03-05 11:00 | PN_ITS ---
Patient Problems: Active and Suspected Problems (Last Reviewed 03/03/19 @ 11:10 by Yimi Castro MD) Diastolic CHF, acute on chronic (Acute) Reason for Visit: Follow-up acute congestive heart failure Subjective: Plan was for patient to have been discharged home today however was found to be hypotensive with systolic blood pressure in the 70s. He is on lisinopril and very high dose of metoprolol XL 200 mg daily held. His Lasix dose also adjusted from 60 every 8 to 40 p.o. twice daily Objective: GENERAL: cooperative HEENT: Atraumatic; EYES; Anicteric, Normal Conjunctiva NECK; supple, normal thyroid, RESPIRATORY: Diminished to auscultation CARDIOVASCULAR: Regular S1 S2, GI: soft, normoactive bowel sounds, : No Renal angle tenderness; EXTREMITIES: Bipedal edema, no clubbing, MUSCULOSKELETAL: no muscle waisting NEURO: Awake; no lateralizing signs. SKIN: No Rash PSYCH; Flat affect Vitals/I&O's: Vital Signs Temp Pulse Resp BP Pulse Ox 98.3 F 77 26 H 79/48 L 94 03/05/19 10:30 03/05/19 10:30 03/05/19 10:30 03/05/19 10:30 03/05/19 10:30 Oxygen Flow Rate (L/min) 2 Oxygen Delivery Method Nasal Cannula Weight: 95.1 kg Body Mass Index (BMI) 28.8 Intake and Output for Last 24 Hours 03/03/19 03/04/19 03/05/19 23:59 23:59 23:59 Intake Total 867.75 / 867.75 1560 / 1800 480 / 480 Output Total 2125 / 2125 1000 / 1375 675 / 675 Balance -1257.25 / -1257.25 560 / 425 -195 / -195 Laboratory Results 03/05/19 06:20: Sodium 144, Potassium 4.1, Chloride 101, Carbon Dioxide 44.0 H, Anion Gap -1 L, BUN 26 H, Creatinine 1.18, Estim Creat Clear Calc 65.76, Est GFR (MDRD) Af Amer 79, Est GFR (MDRD) Non-Af 65, BUN/Creatinine Ratio 22.0 H, Glucose 104, Calcium 8.5 Current Medications Acetaminophen (Tylenol) 650 mg PO Q6H PRN PRN PRN Reason: Pain Score 1-3/Temp > 100.7 F Hydrocodone Bitart/Acetaminophen ([place] 5mg-325mg) 1 tablet PO Q4H PRN PRN PRN Reason: Pain Score 6-10/10 Last Admin: 03/05/19 08:25 Dose: 1 tablet Documented by: Acyclovir (Zovirax) 400 mg PO BID [facility] Last Admin: 03/05/19 09:43 Dose: 400 mg Documented by: Al Hydroxide/Mg Hydroxide (Mylanta Ii) 30 ml PO Q6H PRN PRN PRN Reason: Gastric Burning Albuterol Sulfate (Ventolin Aerosols) 2.5 mg INHALATION Q2H PRN PRN PRN Reason: SOB/Wheezing Doxycycline Monohydrate (Doxycycline) 100 mg PO BID [facility] Last Admin: 03/05/19 09:43 Dose: 100 mg Documented by: Enoxaparin Sodium (Lovenox) 40 mg SC DAILY@0600 [facility] Last Admin: 03/05/19 05:11 Dose: 40 mg Documented by: Furosemide (Lasix) 60 mg IV Q8 [facility] Last Admin: 03/05/19 05:11 Dose: 60 mg Documented by: Guaifenesin (Robitussin) 20 ml PO Q4H PRN PRN PRN Reason: COUGH Sodium Chloride () 250 mls @ 15 mls/hr IV .[id number] PRN PRN Reason: Saline Flush Last Infusion: 03/04/19 09:30 Dose: Infused Documented by: Levothyroxine Sodium (Synthroid) 25 mcg PO DAILY@0600 [facility] Last Admin: 03/05/19 05:11 Dose: 25 mcg Documented by: Magnesium Hydroxide (Milk Of Magnesia) 30 ml PO DAILY PRN PRN PRN Reason: Constipation Melatonin (Melatonin) 3 mg PO QHS PRN PRN PRN Reason: INSOMNIA Nutritional Formula (Lactose Free) (Ensure Enlive) 120 ml PO 4X/DAY [facility] Last Admin: 03/05/19 09:26 Dose: Not Given Documented by: Ondansetron HCl (Zofran) 4 mg IV Q8H PRN PRN PRN Reason: NAUSEA/VOMITING Oxycodone HCl (Oxyir) 5 mg PO Q4H PRN PRN PRN Reason: Pain Score 4-5/10 Sodium Chloride () 10 - 40 ml IV UD PRN PRN Reason: SALINE FLUSH Last Admin: 12/05/19 05:17 Dose: 10 ml Documented by: Sodium Chloride () 250 ml IV UD PRN PRN Reason: Hypotension STROKE Vital Signs/Narrative: Vital Signs Temp Pulse Resp BP BP Pulse Ox 03/05/19 10:30 98.3 F 77 26 H 79/48 L 94 03/05/19 09:46 75/50 L 03/05/19 09:30 98.0 F 77 28 H 77/45 L 93 03/05/19 07:10 85 03/05/19 07:05 93 Medical Necessity - Tobacco Use Smoking Status: Former smoker Tobacco Use: Cigarettes, Chew Assessment/Plan All Active Problems (Last Reviewed 03/03/19 @ 11:10 by Yimi Castro MD) Diastolic CHF, acute on chronic (Acute) Pericardial effusion (Acute) Anasarca (Acute) Pleural effusion (Acute) Patient is a 68-year-old gentleman 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 Acute congestive heart failure with preserved ejection fraction ~ Patient has been admitted to monitored bed as part of his management patient was placed on daily input and output, daily weights, restriction, low-sodium diet. Patient was placed on Lasix, 2D echo obtained on 01/09/2019 demonstrated EF of 60% ?03/04/2019. Patient is in a negative fluid balance of 1.8 L since admission. Did continue with Lasix ?03/05/2019: Plan was for patient to have been discharged home today however was found to be hypotensive with systolic blood pressure in the 70s. He is on lisinopril and very high dose of metoprolol XL 200 mg daily held. His Lasix dose also adjusted from 60 every 8 to 40 p.o. twice daily 2. Bilateral pleural effusions ~due to above plan is to treat the underlying condition 3. Amyloidosis ~Diagnosis was based on an outpatient renal biopsy obtained as a result of proteinuria. Patient has followed up with Dr. Plaza with oncology plan was for patient to have undergone port placement on 03/03/2019 with initiation induction chemotherapy prior to evaluation for bone marrow transplant. Consult placed to Dr. Renee to have the procedure performed once patient is in the hospital ?03/04/2019 Underwent placement of permanent indwelling tunnelled catheter in right internal jugular vein with subcutaneous port (with use of fluoroscopy and ultrasound guidance)by Dr Renee 4. Essential hypertension ~Continued patient home meds once his meds have been reconciled 03/05/2019: Adjusted patient blood pressure medications in view of significantly low blood pressure this a.m. 5. Hypothyroidism ~patient is on levothyroxine home dose continued 6. Nephrotic syndrome ?Secondary to amyloidosis management as discussed above 7. DVT prophylaxis ~ on enoxaparin Code Visit Inpatient E&M: 90542 Subs Hosp L2
--- NOTE | 2019-03-05 15:36 | CASEMGMT ---
Patient's brought in a copy of patient's advance directives. SW copied them and placed copies in chart. SW gave patient the originals. Manuela LOCKETT MSW
[2019-03-05] MEDS: Furosemide 40 MG Tablet 60 MG PO (17:45)
[2019-03-06 03:00] VITALS: PULSE 104
[2019-03-06 03:15] VITALS: BP 130/78; PULSE 101; RESP 18; TEMP 37; O2SAT 96
[2019-03-06 05:01] LABS: Anion Gap 1 (5-15); BUN 29 mg/dL (7-18); BUN/Creat Ratio 22.8 RATIO (10-20); Calcium,Total 8.3 mg/dL (8.5-10.1); Chloride 99 mmol/L (98-107); Creatinine, Serum 1.27 mg/dL (0.70-1.30); EST Glomerular Filtration Rate 60 mL/min (>60); Est Glom Filt Rate - Afr Amer 73 mL/min (>60); Glucose 115 mg/dL (74-106); Potassium 3.9 mmol/L (3.5-5.1); Sodium Level 141 mmol/L (136-145)
[2019-03-06] MEDS: Enoxaparin 40 MG/0.4 ML Syringe SC (05:27)
[2019-03-06] MEDS: Levothyroxine 25 MCG TABLET PO (05:27)
[2019-03-06] MEDS: Acyclovir 200 MG Capsule 400 MG PO (08:36)
[2019-03-06] MEDS: Doxycycline 100 MG CAPSULE PO (08:37)
[2019-03-06] MEDS: Furosemide 40 MG Tablet 60 MG PO (08:40)
--- NOTE | 2019-03-06 09:06 | PCM.DC ---
- Discharge Diagnoses Current Active Problems: Current Active and Chronic Problems (Last Reviewed 03/03/19 @ 11:10 by Yimi Castro MD) Nephrotic syndrome (Chronic) Amyloidosis (Chronic) Diastolic CHF (Chronic) Diastolic CHF, acute on chronic (Acute) You will use the following diet at home:: Fluid restricted (specify 2000 mls, 1500 mls) - 1500 Your food should be the consistency of: Regular Discharge Activity: Return to Normal Activity, May not drive while taking narcotic pain medications. Call your doctor if your incision/area has: Continuous Slow Oozing, Foul Smelling Discharge Call your doctor if you observe: Shortness of breath Allergies/Adverse Reactions: Allergies No Known Allergies Allergy (Verified 03/03/19 09:10) Medications to take at Discharge Acyclovir 400 mg PO BID 03/03/19 Doxycycline Hyclate 100 ng PO BID 03/03/19 Levothyroxine Sodium 25 mcg PO DAILY@0600 03/03/19 Furosemide 40 mg PO BID #120 tab 03/05/19 Lisinopril 2.5 mg PO DAILY #30 tab 03/06/19 Metoprolol(XL)Succ [Toprol Xl (Beta Zak)] 50 mg PO DAILY #30 tab 03/06/19 The following prescriptions were given: Furosemide 40 mg PO BID #120 tab Transmission Status: Received by [facility] #30 Lisinopril 2.5 mg PO DAILY #30 tab Transmission Status: Pending to [facility]30 Metoprolol(XL)Succ [Toprol Xl (Beta Zak)] 50 mg PO DAILY #30 tab Transmission Status: Pending to [facility] #30 Primary Care Physician: Gerry Pate DO [Primary Care Provider] - Please follow up with your Primary Care Physician in: in 5-7 days Test Results: Test results from this visit will be discussed in further detail at your follow-up appointment, if applicable. Please Follow Up With: Ava Renee MD When: as per needed, if any problems, please call for an appointment Please Follow Up With: Gerry Pate DO Please Follow Up With: Alek Crowder MD When: as scheduled Please Follow Up With: Yovany Whitley MD When: as scheduled Proposed Discharge Date: 03/06/19
--- NOTE | 2019-03-06 09:09 | DS.PCM_ITS ---
Discharge Date and Diagnosis - Problem List Patient Problems: Active and Suspected Problems (Last Reviewed 03/03/19 @ 11:10 by Yimi Castro MD) Diastolic CHF, acute on chronic (Acute) Date of Admission: 03/03/19 Date of Discharge: 03/06/19 - Primary Discharge Diagnosis Active and Suspected Problems (Last Reviewed 03/03/19 @ 11:10 by Yimi Castro MD) Diastolic CHF, acute on chronic (Acute) - Secondary Discharge Diagnosis Chronic Problems (Last Reviewed 03/03/19 @ 11:10 by Yimi Castro MD) Nephrotic syndrome (Chronic) Amyloidosis (Chronic) Diastolic CHF (Chronic) Proteinuria (Chronic) CHF (congestive heart failure) (Chronic) Essential (primary) hypertension (Chronic) Hospital Course and Treatment Imaging Results: Clinical Impression(s) from Imaging Studies Chest X-Ray 03/03/19 09:43 IMPRESSION: Mild to moderate bilateral pleural effusions Electronically Signed: Lai Rayo MD at 10:25 EST , Service support , Chest X-Ray 03/04/19 08:11 IMPRESSION: The tip of the right sided portacatheter is in the proximal portion of the superior vena cava. Bilateral pleural-parenchymal changes worse on the right side. 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 Acute congestive heart failure with preserved ejection fraction ~ Patient has been admitted to monitored bed as part of his management patient was placed on daily input and output, daily weights, restriction, low-sodium diet. Patient was placed on Lasix, 2D echo obtained on 01/09/2019 demonstrated EF of 60% ?03/04/2019. Patient is in a negative fluid balance of 1.8 L since admission. Did continue with Lasix ?03/05/2019: Plan was for patient to have been discharged home today however was found to be hypotensive with systolic blood pressure in the 70s. He is on lisinopril and very high dose of metoprolol XL 200 mg daily held. His Lasix dose also adjusted from 60 every 8 to 40 p.o. twice daily 03/06/2019 patient was discharged home following stabilization of his medical condition. He was assessed for home oxygen prior to patient being discharged. Patient did qualify for oxygen he will need portability since he is active both at home and in the community 2. Bilateral pleural effusions ~due to above plan is to treat the underlying condition 3. Amyloidosis ~Diagnosis was based on an outpatient renal biopsy obtained as a result of proteinuria. Patient has followed up with Dr. Plaza with oncology plan was for patient to have undergone port placement on 03/03/2019 with initiation induction chemotherapy prior to evaluation for bone marrow transplant. Consult placed to Dr. Renee to have the procedure performed once patient is in the hospital ?03/04/2019 Underwent placement of permanent indwelling tunnelled catheter in right internal jugular vein with subcutaneous port (with use of fluoroscopy and ultrasound guidance)by Dr Renee 4. Essential hypertension ~Continued patient home meds once his meds have been reconciled 03/05/2019: Adjusted patient blood pressure medications in view of significantly low blood pressure this a.m. ?03/06/2019 metoprolol was resumed at a much decreased dose of 50 mg XL daily and lisinopril 2.5 mg daily new prescriptions were written for 30 days. Patient instructed to follow-up with primary soda tester as well as primary care physician for subsequent management of blood pressure. 5. Hypothyroidism ~patient is on levothyroxine home dose continued 6. Nephrotic syndrome ?Secondary to amyloidosis management as discussed above 7. DVT prophylaxis ~ on enoxaparin Patient Problems: Active and Suspected Problems (Last Reviewed 03/03/19 @ 11:10 by Yimi Castro MD) Diastolic CHF, acute on chronic (Acute) - Physical Exam Vitals/I&O's: Vital Signs Temp Pulse Resp BP Pulse Ox 98.6 F 101 H 18 130/78 H 96 03/06/19 03:15 03/06/19 03:15 03/06/19 03:15 03/06/19 03:15 03/06/19 03:15 Oxygen Flow Rate (L/min) 2 Oxygen Delivery Method Nasal Cannula Weight: 95.1 kg Body Mass Index (BMI) 28.8 Intake and Output for Last 24 Hours 03/04/19 03/05/19 03/06/19 23:59 23:59 23:59 Intake Total 1560 / 1800 1090 / 1090 240 / 240 Output Total 1000 / 1375 2100 / 2100 400 / 400 Balance 560 / 425 -1010 / -1010 -160 / -160 Laboratory Results 03/06/19 04:36: Sodium 141, Potassium 3.9, Chloride 99, Carbon Dioxide 41.0 H, Anion Gap 1 L, BUN 29 H, Creatinine 1.27, Estim Creat Clear Calc 61.10, Est GFR (MDRD) Af Amer 73, Est GFR (MDRD) Non-Af 60, BUN/Creatinine Ratio 22.8 H, Glucose 115 H, Calcium 8.3 L Current Medications Acetaminophen (Tylenol) 650 mg PO Q6H PRN PRN PRN Reason: Pain Score 1-3/Temp > 100.7 F Hydrocodone Bitart/Acetaminophen ([place] 5mg-325mg) 1 tablet PO Q4H PRN PRN PRN Reason: Pain Score 6-10/10 Last Admin: 03/05/19 08:25 Dose: 1 tablet Documented by: Acyclovir (Zovirax) 400 mg PO BID [facility] Last Admin: 03/06/19 08:36 Dose: 400 mg Documented by: Al Hydroxide/Mg Hydroxide (Mylanta Ii) 30 ml PO Q6H PRN PRN PRN Reason: Gastric Burning Albuterol Sulfate (Ventolin Aerosols) 2.5 mg INHALATION Q2H PRN PRN PRN Reason: SOB/Wheezing Doxycycline Monohydrate (Doxycycline) 100 mg PO BID [facility] Last Admin: 03/06/19 08:37 Dose: 100 mg Documented by: Enoxaparin Sodium (Lovenox) 40 mg SC DAILY@0600 [facility] Last Admin: 03/06/19 05:27 Dose: 40 mg Documented by: Furosemide (Lasix) 60 mg PO BIDLX [facility] Last Admin: 03/06/19 08:40 Dose: 60 mg Documented by: Guaifenesin (Robitussin) 20 ml PO Q4H PRN PRN PRN Reason: COUGH Sodium Chloride () 250 mls @ 15 mls/hr IV .[id number] PRN PRN Reason: Saline Flush Last Infusion: 03/04/19 09:30 Dose: Infused Documented by: Levothyroxine Sodium (Synthroid) 25 mcg PO DAILY@0600 [facility] Last Admin: 03/06/19 05:27 Dose: 25 mcg Documented by: Magnesium Hydroxide (Milk Of Magnesia) 30 ml PO DAILY PRN PRN PRN Reason: Constipation Melatonin (Melatonin) 3 mg PO QHS PRN PRN PRN Reason: INSOMNIA Nutritional Formula (Lactose Free) (Ensure Enlive) 120 ml PO 4X/DAY [facility] Last Admin: 03/06/19 08:37 Dose: Not Given Documented by: Ondansetron HCl (Zofran) 4 mg IV Q8H PRN PRN PRN Reason: NAUSEA/VOMITING Oxycodone HCl (Oxyir) 5 mg PO Q4H PRN PRN PRN Reason: Pain Score 4-5/10 Sodium Chloride () 10 - 40 ml IV UD PRN PRN Reason: SALINE FLUSH Last Admin: 03/05/19 05:17 Dose: 10 ml Documented by: Sodium Chloride () 250 ml IV UD PRN PRN Reason: Hypotension Discharge Diet: No Restrictions Discharge Activity: Return to Normal Activity, May not drive while taking narcotic pain medications. Call your doctor if your incision/area has: Continuous Slow Oozing, Foul Smelling Discharge Call your doctor if you observe: Shortness of breath Home Medications: Medications to take at Discharge Acyclovir 400 mg PO BID 03/03/19 Doxycycline Hyclate 100 ng PO BID 03/03/19 Levothyroxine Sodium 25 mcg PO DAILY@0600 03/03/19 Furosemide 40 mg PO BID #120 tab 03/05/19 Lisinopril 2.5 mg PO DAILY #30 tab 03/06/19 Metoprolol(XL)Succ [Toprol Xl (Beta Zak)] 50 mg PO DAILY #30 tab 03/06/19 Following Prescrptions Were Given to Patient: Furosemide 40 mg PO BID #120 tab Transmission Status: Received by [facility]30 Lisinopril 2.5 mg PO DAILY #30 tab Transmission Status: Received by [facility] Metoprolol(XL)Succ [Toprol Xl (Beta Zak)] 50 mg PO DAILY #30 tab Transmission Status: Received by [facility] Primary Care Physician: Gerry Pate DO [Primary Care Provider] - Please follow up with your Primary Care Physician in: in 5-7 days Please Follow Up With: Ava Renee MD When: as per needed, if any problems, please call for an appointment Please Follow Up With: Gerry Pate DO Please Follow Up With: Alek Crowder MD When: as scheduled Please Follow Up With: Yovany Whitley MD When: as scheduled Disposition: Home Minutes spent on discharge:: 35 Patient Condition:: Stable Medical Necessity - Tobacco Use Smoking Status: Former smoker Tobacco Use: Cigarettes, Chew Meaningful Use Info Meaningful Use Diagnoses (Choose all that apply): CHF - CHF [place]/ARB ordered at discharge?: Yes Documented LVEF (%): 60 Code Visit Inpatient E&M: 70556 Disch Hosp
[2019-03-06 09:15] VITALS: BP 117/59; PULSE 87; RESP 18; TEMP 36.7; O2SAT 96
[2019-03-06 10:22] VITALS: O2SAT 84; O2SAT 88; O2SAT 93
--- NOTE | 2019-03-06 10:46 | CASEMGMT ---
Addendum entered by Ana Rosa Ortiz 03/06/19 13:31: D/C summ/F2F faxed to [facility] at this time. Parrish MEJÍA CM Addendum entered by Ana Rosa Ortiz 03/06/19 11:43: This KYM ACKERMAN spoke with Antonia at [facility] and she states that they have everything they need for referral and that car driver will be dispatched soon to hospital to deliver tank. Parrish MEJÍA CM Original Note: Pt does qualify for home oxygen at this time and after provided with a in-network list, pt states that he would like [facility] at this time. Referral faxed to [facility] at this time and call to [facility] to notify that pt to be discharged today, voices understanding. Parrish MEJÍA CM
--- NOTE | 2019-03-09 15:27 | CASEMGMT ---
Case Management DC F/u Call: DC Date: 03/06/19 DC Diagnosis: Diastolic CHF, acute on chronic (Acute) DC Disposition: Home with Home O2. F/u Dr Crowder 03/09/19 at 1130, Dr Pate 03/13/19 at 1400 [employer]: 03/04 Attempted to call patient listed home number on demographics, first time picker tender and hung up immediately, second time call back and it rang until I received a off the hook beeping sound. Marshall Lawrence RNCM
== END 2019-03-06 17:30 | disposition home or self-care (01) | DRG 292 ==
LOC: ED 09:53 → PCU 10:52
PROVIDERS: Surgery; Admitting Provider Internal Medicine; Emergency Provider Emergency Medicine; Family Provider Student in an Organized Health Care Education/Training Program; PCP Student in an Organized Health Care Education/Training Program; Referring Provider Internal Medicine; Visit Provider Internal Medicine
PROC: 0JH63XZ Insertion of Tunneled Vascular Access Device into Chest Subcutaneous Tissue and Fascia, Percutaneous Approach (ICD-10-PCS; principal; 2019-03-04 07:15)
DX: I11.0 Hypertensive heart disease with heart failure (principal); N04.9 Nephrotic syndrome with unspecified morphologic changes; E85.9 Amyloidosis, unspecified; J91.8 Pleural effusion in other conditions classified elsewhere; I50.33 Acute on chronic diastolic (congestive) heart failure; E03.9 Hypothyroidism, unspecified; D75.89 Other specified diseases of blood and blood-forming organs; Z87.891 Personal history of nicotine dependence
CPT/HCPCS: 36415; 71045; 71046; 77001; 80048; 83735; 83880; 84484; 85025; 85610; 85730; 93005; 99283; J7050; J7120; A4216; C1788; J1940

== ENCOUNTER 2019-04-07 16:42 | Emergency (ER) | payer OTHER, SELFPAY ==
[2019-03-04 05:37] VITALS: BMI 28.8
[2019-04-07 16:43] VITALS: BP 145/98; PULSE 104; RESP 20; TEMP 36.1; O2SAT 93; BMI 33.0
--- NOTE | 2019-04-07 16:51 | ED.RN ---
last chemo was 1 week ago saturday, has another scheduled for this saturday. see Dr. Crowder
[2019-04-07 16:52] VITALS: O2SAT 97
--- NOTE | 2019-04-07 17:13 | RAD_ITS ---
STUDY: X-RAY CHEST REASON FOR EXAM: Male, 68 years old. Decreased breath sounds on the right after fall. Shortness of breath. TECHNIQUE: Single AP portable view of the chest. COMPARISON: March 03, 2019. FINDINGS: There is a stable right jugular Port-A-Cath with its tip in the superior vena cava. There is no pneumothorax. There is a large right pleural effusion which has increased up to the level of the hilum. There are atelectatic changes in the aerated right upper lobe. Smaller left pleural effusion with minimal basilar atelectasis. The heart appears borderline enlarged. Normal mediastinum and eric. Normal visualized pulmonary arteries. Normal visualized aortic arch and descending thoracic aorta. There are diffuse degenerative changes of the visualized thoracic spine. There is degenerative osteoarthritis of the bilateral shoulders. There is no demonstrated abnormality of the visualized soft tissue structures of the upper abdomen. RAD/Chest Insp/Exp 2 View IMPRESSION: 1. Stable right jugular Port-A-Cath. There is no pneumothorax. 2. Interval increase in right pleural effusion and atelectasis when compared to the earlier study. 3. Stable small left pleural effusion. 4. Stable cardiomegaly. Electronically Signed: Landry Newton DO at 17:44 EST Tel [phone], Service support ,
--- NOTE | 2019-04-07 17:14 | ED.DCSUM_ITS ---
History of Present Illness Chief Complaint: Fall Informant: Patient Onset: Today Mechanism/Context: Fall Quality of Pain: Dull Location: Right shoulder Current Severity: Mild Maximum Severity: Mild Worsened by: Apparently nothing Relieved by: Nothing Narrative: Patient is an early male who has weakness of his lower extremities that is chronic. He is undergoing treatment for his leg weakness. He states he is legs gave. He fell down a flight of steps. He did hit his head. He had no loss conscious. Nuys headache. He is not amnestic. He denies neck pain. He denies paresthesia, anesthesia motors upper extremities he has no weakness or numbness in his lower extremities. He does report increased shortness of breath. He is on oxygen 24/. He denies chest pain. Denies abdominal pain. Denies upper or lower back pain. He is on no anticoagulant. Prior similar symptoms: No Recent Illness/Hospitalization: No - Past Medical History (1) Pericardial effusion Status: Acute (2) Pleural effusion Status: Acute Comment: Right thoracentesis 01/13/19 (3) Amyloidosis Status: Chronic (4) CHF (congestive heart failure) Status: Chronic (5) Essential (primary) hypertension Status: Chronic (6) Nephrotic syndrome Status: Chronic Past Medical History - Allergies and Home Meds Allergies/Adverse Reactions: Allergies No Known Allergies Allergy (Verified 04/07/19 16:47) Primary Care Physician: Gerry Pate DO [Primary Care Provider] - Prior records reviewed: Yes Lives: Spouse/ Significant Other Smoking Status: Former smoker Alcohol: None Drugs: None - Family History Maternal Family History: Reports: - - Mother patient unsure of the cause Paternal Family History: Reports: - - Patient not sure of father's cause of Review of Systems General: Denies: Chills, Fever, Malaise Eyes: Denies: Visual changes - bilaterally, Blurred Vision - bilaterally ENT: Denies: Bilateral ear pain, Rhinorrhea, Sore throat Respiratory: Reports: Dyspnea Gastrointestinal: Denies: Abdominal pain, Nausea, Vomiting, Diarrhea, Melena, Hematochezia Musculoskeletal: Reports: Extremity Pain. Denies: Myalgias, Arthralgias, Neck pain, Back pain, Swelling Skin: Reports: Abrasions - Patient's near hairline/forehead and vertex of skull. Also abrasion posterior right shoulder. Denies: Rash Neurological: Reports: Weakness - Neck weakness right and left lower extremity. Denies: Headache, Parasthesia, Numbness, -, - Endocrine: Denies: Polyuria, Polydipsia Hematologic: Denies: Easy bruising, Easy bleeding Allergy: Denies: Uticaria, Swelling of the mouth Physical Exam Vital Signs/Narrative: Vital Signs Temp Pulse Resp BP Pulse Ox 04/07/19 16:52 97 04/07/19 16:43 97.0 F L 104 H 20 H 145/98 H 93 Inital Vital Signs reviewed: Yes General: Well nourished, Well developed Head: Normocephalic, Trauma, - - Palpable depression or hematoma. Negative for: Tenderness Eyes: Perrl, EOMI, - - No subconjunctival hemorrhage. Negative for: Pale conjunctiva, Scleral icterus ENT: TM's clear, No hemotympanum or drainage, No trauma. Negative for: Hemotympanum, Otorrhea, Nasal trauma, Nasal septal hematoma Neck: Nontender, Full ROM, - - Full active range of motion.. Negative for: Spinal Tenderness, Paraspinal Tenderness Cardiovascular: Regular rate, Regular rhythm, No murmurs, Normal S1, Normal S2 Respiratory: Decreased Air Movement - Predominately right side. Negative for: No distress, CTA bilaterally, Chest nontender Abdomen: Soft, Nontender, Nondistended, Normal bowel sounds, No masses. Negative for: Hepatomegaly, Splenomegaly, Mass, Pulsatile mass Rectal: Deferred Back: Nontender Skin: Normal color, No rash, Trauma - Previously described Neurological: Alert, Oriented x3, Cranial nerves II-XII grossly intact, Normal Strength, Normal Sensation, Normal DTR, Normal Gait Psychological: Normal affect - Glascow Coma Scale Eye Opening: Spontaneous Motor: Obeys Commands Verbal: Oriented Coma Scale Total: 15 Diagnostic/Tx/Re-eval Chest X-Ray - ED: 2 View, Read by ED Physician, Bony Structures, Cardiomegaly, Right Effusion, Left Effusion, - - Spira Tory and expiratory films reveal no evidence of pneumothorax. There is bilateral effusion. Fusion is unchanged from prior. The effusion on the right would explain the decreased breath sounds noted on examination. - Medical Decision Making Inspiratory and expiratory chest x-ray was obtained to assess pneumothorax on the right since there is significantly decreased breath sounds on the right compared to left. The [place] CT head rule since there was no loss of conscious and he was not dazed and on no anticoagulant imaging is not indicated. Per the Nexus criteria is a speedy spine was cleared. X-ray reveals no change from prior will discharge to home. ED Disposition - Plan for ED Patient: Disposition: Home or Assisted Living Diagnosis: Fall with no significant injury, Scalp abrasion, non-infected, Abrasion of right shoulder, initial encounter Instructions: FALL, Mechanical, Abrasion Referrals: Gerry Pate, DO [Primary Care Provider] - 1 Week if not improving Additional Instructions: Take Tylenol for pain. Apply ice 6-8 times a day where you have discomfort for the next 3 days. Heat will make your pain worse.
[2019-04-07 18:05] VITALS: BP 155/86; PULSE 107; RESP 18; O2SAT 93
[2019-04-07 19:02] VITALS: RESP 22; O2SAT 96
== END 2019-04-07 19:03 | disposition home or self-care (01) ==
PROVIDERS: Emergency Provider Emergency Medicine; Family Provider Student in an Organized Health Care Education/Training Program; PCP Student in an Organized Health Care Education/Training Program
DX: S40.211A Abrasion of right shoulder, initial encounter (principal); S00.01XA Abrasion of scalp, initial encounter; R29.898 Other symptoms and signs involving the musculoskeletal system; J90 Pleural effusion, not elsewhere classified; W10.9XXA Fall (on) (from) unspecified stairs and steps, initial encounter; Y93.9 Activity, unspecified; Y92.9 Unspecified place or not applicable; I11.0 Hypertensive heart disease with heart failure; I50.9 Heart failure, unspecified; E85.9 Amyloidosis, unspecified; N04.9 Nephrotic syndrome with unspecified morphologic changes; Z99.81 Dependence on supplemental oxygen; Z79.899 Other long term (current) drug therapy; Z87.891 Personal history of nicotine dependence
CPT/HCPCS: 71046; 99284

== ENCOUNTER 2019-04-07 23:52 | Inpatient (IN) | payer MEDICARE, OTHER, SELFPAY ==
[2019-04-07 16:43] VITALS: BMI 33.0
[2019-04-07 23:53] VITALS: PULSE 111; RESP 20; TEMP 36.2; O2SAT 96; BMI 29.8
[2019-04-08] VITALS (36 sets, daily range): BP systolic 83–147; BP diastolic 50–109; PULSE 89–121; RESP 12–44; TEMP 36.1–37.2; O2SAT 91–100; BMI 32.2; BMI 32.1
--- NOTE | 2019-04-08 00:28 | CT_ITS ---
HISTORY: CONFUSION AFTER A FALL DOWN STAIRS,ABRASIONS TO TOP OF HEAD,DENIES LOC HX:HTN,CHF EXAMINATION: CT Head or Brain W/O Contrast Injection TECHNIQUE: Multiple axial images were obtained of the brain without intravenous contrast. A radiation dose optimization technique was used for this scan. IV Contrast dosage and agent: None. COMPARISON: None FINDINGS: Normal ventricles. Mild cerebral cortical atrophy and mild cerebellar atrophy. No intracranial mass, hemorrhage, or acute parenchymal abnormality. No suspicious extra-axial fluid collection. The calvarium appears intact. As visualized, the mastoids are clear. CT/Brain/Head without Contrast IMPRESSION: 1. Negative for intracranial hemorrhage or acute intracranial disease. 2. Mild cerebral and cerebellar atrophy. Individualized dose optimization techniques were used for this CT. at 0240 Reported and signed by: Lele Martinez MD Electronically Signed: Lele Martinez, at 2:39 EST Tel , Service support ,
--- NOTE | 2019-04-08 00:28 | RAD_ITS ---
HISTORY: WEAKNESS AND SOB history CHF EXAMINATION/TECHNIQUE: XR Chest 1 View: Portable COMPARISON: 04/07/2019 FINDINGS: No significant change. Cardiomegaly with bilateral pleural effusions, larger on the right and small on the left, and was secondary bibasilar passive atelectatic changes. Vascular congestion, more so on the right. No pneumothorax. The right IJ central venous line is unchanged in position. RAD/Chest 1 View (Portable) IMPRESSION: 1. No significant change. 2. CHF with large right and small left pleural effusions. Secondary bibasilar passive atelectatic changes. at 0112 Reported and signed by: Lele Martinez MD Electronically Signed: Lele Martinez, at 1:11 EST Tel , Service support ,
--- NOTE | 2019-04-08 00:28 | EKG12_ITS ---
Test Reason : WEAKNESS Blood Pressure : / mmHG Vent. Rate : 108 BPM Atrial Rate : 108 BPM P-R Int : 154 ms QRS Dur : 086 ms QT Int : 350 ms P-R-T Axes : 053 -17 167 degrees QTc Int : 469 ms Sinus tachycardia Low voltage QRS Cannot rule out Anteroseptal infarct , age undetermined T wave abnormality, consider lateral ischemia Abnormal ECG Old ant QW Lateral TWI Present on 03/05/19 Confirmed by MANUEL BAILEY ([id number]), editor managing newspaper KIKE ELLIS ([id number]) on 04/10/2019 3:30:51 PM Referred By: LORETA Confirmed By:MANUEL BAILEY
--- NOTE | 2019-04-08 00:30 | CT_ITS ---
HISTORY: CONFUSION AFTER A FALL DOWN STAIRS,DENIES LOC, HX:HTN,CHF EXAMINATION: CT Spine Cervical W/O Contrast Injection TECHNIQUE: Helically acquired images were obtained of the cervical spine. 2D reformatted images were reviewed. A radiation dose optimization technique was used for this scan. IV Contrast dosage and agent: None. COMPARISON: None FINDINGS: CT exam partly limited by motion artifact. Artifact is greatest at the upper thoracic spine and cervicothoracic junction. The cervical vertebra appear normal in height. No fracture or acute osseous abnormality. Intact dens and craniocervical junction. Multilevel degenerative changes. C3-4 through C6-7 disc space narrowing, pain by end plate spurring including posterior endplate spurring. C3-4 posterior bar osteophyte to the right of midline with secondary mild deformity of the anterior thecal sac. Multilevel facet joint arthritis and uncovertebral spurring. No suspicious spondylolisthesis. Right IJ central venous line in place. Bilateral pleural effusions, larger on the right. CT/Spine Cervical without Contras IMPRESSION: 1. No fracture or acute osseous abnormality. 2. Cervical spine multilevel degenerative changes. 3. CT exam partly limited by motion artifact. 4. Bilateral pleural effusions, larger on the right. Individualized dose optimization techniques were used for this CT. at 0252 Reported and signed by: Lele Martinez MD Electronically Signed: Lele Martinez, at 2:51 EST Tel , Service support ,
--- NOTE | 2019-04-08 00:45 | ED.DCSUM_ITS ---
History of Present Illness Chief Complaint: Weakness Narrative: Patient presenting for evaluation secondary to generalized weakness and frequent falls. Patient has an underlying history of amyloidosis, is getting chemotherapy for this. He also has a history of hypertension and congestive heart failure. Patient apparently earlier today suffered a fall down stairs. He was evaluated in the emergency department was felt to be safe for discharge, and was discharged home. Patient throughout the course of the day today however has been dealing with generalized weakness and difficulty with ambulating. He has been unsteady on his feet. He denies any laterality to this. He suffered another fall today. He states that it simply was associated with his legs giving out from underneath him. Patient has been somewhat short of breath throughout the course of the day today, he is on baseline 2 L of oxygen at home, but was hypoxic upon arrival and required increase of his oxygen to 4 L. He denies any recent fever cough chest pain nausea vomiting or diarrhea. Patient does have a significant amount of baseline edema which he and his are unable to tell me if this is increased from his baseline or if he has had any weight gain. Denies any urinary signs or symptoms. Past Medical History - Allergies and Home Meds Allergies/Adverse Reactions: Allergies No Known Allergies Allergy (Verified 04/07/19 16:47) Primary Care Physician: Gerry Pate DO [Primary Care Provider] - Past Medical History: - - Amyloidosis, congestive heart failure, hypertension Smoking Status: Former smoker - Family History Maternal Family History: Reports: - - Mother patient unsure of the cause Paternal Family History: Reports: - - Patient not sure of father's cause of Review of Systems All systems negative except as indicated General: Denies: Chills, Fever, Sweats Eyes: Denies: Visual changes - bilaterally, Diplopia ENT: Denies: Rhinorrhea, Sore throat Cardiovascular: Denies: Chest pain, Palpitations Respiratory: Reports: Dyspnea. Denies: Cough, Sputum Gastrointestinal: Denies: Abdominal pain, Nausea, Vomiting, Diarrhea, Melena, Hematochezia Genitourinary: Denies: Dysuria, Hematuria, Frequency Musculoskeletal: Denies: Back pain, Extremity Pain Skin: Denies: Rash, Wounds Neurological: Reports: Weakness Physical Exam Vital Signs/Narrative: Vital Signs Temp Pulse Resp BP Pulse Ox 04/08/19 00:06 107 H 22 H 137/93 H 100 04/07/19 23:53 97.1 F L 111 H 20 H 96 Inital Vital Signs reviewed: Yes General: Well nourished, Well developed, - - Somewhat tachypneic with shallow respirations but otherwise not in physiologic distress Head: Normocephalic, - - Abrasion noted over the patient's left parietal area without any evidence of underlying hematoma or depressed skull fracture Eyes: Perrl, EOMI ENT: Moist mucous membranes, No rhinorrhea Neck: Supple, Nontender, - - No midline tenderness Cardiovascular: Regular rhythm, No murmurs, Tachycardia, - - 2+ radial pulses bilaterally symmetric Respiratory: - - Patient is tachypneic with shallow respirations but no evidence of abnormal lung sounds retractions or accessory muscle use Abdomen: Nontender, - - Moderately distended but not rigid Back: Nontender, Normal Inspection Extremities: Edema - 2+ bilaterally symmetric lower extremity edema. 1+ bilaterally symmetric upper extremity edema, - - Bruising noted of the right shoulder with maintained normal range of motion without any evidence of deformity, crepitus with range of motion, or limited strength Skin: Normal color, No rash Neurological: Alert, Oriented x3, Normal Strength, Normal Sensation Psychological: Normal affect Diagnostic/Tx/Re-eval Chest X-Ray - ED: - - Chest x-ray by my personal review as well as radiology shows congestive heart failure and a right-sided pleural effusion - EKG Initial EKG Interpretation: - - Sinus tachycardia with a rate of 108. Q waves are noted anteriorly with lateral T wave inversions that are old and were present on a prior EKG in March 2019. No evidence of acute ischemia or arrhythmia. - Medical Decision Making Patient presented secondary to frequent falls. Physical exam shows the patient to be significantly edematous and tachypneic and have increased oxygen demand. I am concerned for the possibility of CHF. EKG demonstrates no evidence of acute ischemic changes. Chest x-ray shows CHF. I did perform CT imaging of the brain and cervical spine given the patient's recent falls and confusion these were found to be negative per radiology. CBC and chemistry were indicative of a profoundly elevated CO2. Patient's troponin was also indeterminately elevated. Patient was given 80 mg of Lasix as well as was given aspirin. Due to the patient's elevated CO2 and CHF I did place the patient on BiPAP to lower the patient's preload, and also help with elimination of CO2. Patient requires admission at this point. Patient will be admitted under the hospitalist. - Critical Care Time Critical care time (excluding procedures): 30-74 minutes, Performing Direct Patient Care at Bedside ED Disposition - Plan for ED Patient: Disposition: Acute Care Hospital [facility] Diagnosis: CHF exacerbation, Respiratory failure
[2019-04-08 01:22] LABS: Absolute Lymphocyte Count 0.63 X10^3/uL (0.83-4.51); Absolute Neutrophil Count 5.7 X10^3/uL (2.0-7.7); Basophil# 0.03 X10^3/uL; Basophil% 0.4 % (0-1); Hematocrit 38.9 % (40-54); Hemoglobin 11.7 g/dL (13.0-16.5); Lymphocyte # 0.63 X10^3/ul (4.0); Lymphocyte % 9.4 % (19-41); Mean Corp Hgb Conc 30.1 g/dL (32-36); Mean Corpuscular Hgb 31.6 pg (27.0-32.0); Mean Corpuscular Volume 105.1 fL (80-94); Mean Platelet Vol. 11.3 fl (6.2-12.0); Monocyte# 0.39 X10^3/uL; Monocyte% 5.8 % (0-10); NRBC Flagged by Analyzer 0 % (0-5); Neutrophil # 5.66 X10^3/uL (2.7-7.7); Neutrophil % 84.1 % (47-70); POSITIVE MORPHOLOGY YES; Platelet Count 133 K/mm3 (150-450); RBC Distribution Width CV 13.9 % (11.6-14.6); RBC Distribution Width SD 53.4 fl (35.1-43.9); White Blood Count 6.7 K/mm3 (4.4-11.0)
[2019-04-08 01:31] LABS: Differential Indicated SCAN CRITERIA MET
[2019-04-08 01:41] LABS: ALB/GLOB Ratio 0.6 RATIO (0.9-2.4); AST(SGOT) 17 U/L (15-37); Alanine Aminotransfer ALT/SGPT 30 U/L (16-61); Alkaline Phosphatase 87 U/L (45-117); BUN 22 mg/dL (7-18); BUN/Creat Ratio 23.7 RATIO (10-20); Calcium,Total 8.5 mg/dL (8.5-10.1); Carbon Dioxide > 45.0 mmol/L (21.0-32.0); Chloride 100 mmol/L (98-107); Creatinine, Serum 0.93 mg/dL (0.70-1.30); EST Glomerular Filtration Rate 86 mL/min (>60); Est Glom Filt Rate - Afr Amer 104 mL/min (>60); Estimated Creatinine Clearance 83.44 ml/min; Globulin 3.1 g/dL (2.2-4.2); Glucose 112 mg/dL (74-106); Potassium 4.8 mmol/L (3.5-5.1); Protein, Total 5.1 g/dL (6.4-8.2); Sodium Level 143 mmol/L (136-145)
[2019-04-08 02:01] LABS: Bacteria 0 SEEN /hpf (None Seen); Mucous, Urine 0 SEEN /hpf (<or=2+); Squamous Epithelial Cells - UA 0 SEEN /hpf (0-5); White Blood Cells 0 SEEN /hpf (0-5)
[2019-04-08 02:02] LABS: BNP,B-Type NATRIURETIC PEPTIDE 912.3 pg/mL (0-100)
[2019-04-08 02:14] LABS: Color, Urine Yellow (Yellow); Glucose, Dipstick Normal (Normal); Ketone-Dipstick Negative (Negative); Leukocyte Esterase-Dipstick Negative /ul (Negative); Nitrite-Dipstick Negative (Negative); Occult Blood-Urine 50 /ul (Negative); Protein-Dipstick 500 mg/dl (Negative); Specific Gravity, Urine 1.025 (1.002-1.030); Urine Bilirubin Dipstick Negative (Negative); Urine Clarity Clear (Clear); Urine Urobilinogen 1 mg/dl (Normal)
[2019-04-08 02:15] LABS: Differential Comment SCANNED
[2019-04-08 02:25] LABS: Amorphous Sediment 2+; Hyaline Cast 5-10 SEEN /lpf (0-5); Red Blood Cells-Urine 5-10 SEEN /hpf (0-5)
[2019-04-08] MEDS: Aspirin 81 MG TAB.CHEW 324 MG PO (02:53)
[2019-04-08] MEDS: Furosemide 100 MG/10 ML Vial 80 MG IV (02:53)
--- NOTE | 2019-04-08 03:18 | HP.PCM_ITS ---
History of Present Illness Date of Admission: 04/08/19 Chief Complaint: Progressive SOB, frequent falls, generalised The patient is a 68 year old M with past medical history of nephrotic syndrome/amyloidosis who comes in with recurrent falls as well as difficulty ambulating. Patient was seen earlier in the ED after falling downstairs. Work- up was negative for any acute etiology. Patient was discharged home. He came back because his last leg giving out from underneath him. He complains of progressive shortness of breath. At baseline he is on 2 L of oxygen but he is requiring 4 L of oxygen at home. Denies any fever chills cultures or blood. Admits to progressive worsening edema. His vitals on arrival showed temp 97.1 F, HR 111, BP 137/93, RR 20, Spo2 96% on 4L. His UA is unremarkable except for proteinuria RBC count was 6.7, hemoglobin 11.7, platelet count of 133, BMP was unremarkable except for CO2 of more than 45, BUN 22, creatinine 0.93. UA is unremarkable except for proteinuria. CT scan of brain is negative for acute intracranial abnormality. Chest x-ray shows cardiomegaly with bilateral pleural effusions, larger on the right than the left with bibasilar atelectasis as well as vascular congestion. Past Medical History Past Medical History (Chronic Problems): Chronic Problems (Last Reviewed 03/03/19 @ 11:10 by Yimi Castro MD) Nephrotic syndrome (Chronic) Amyloidosis (Chronic) Diastolic CHF (Chronic) CHF exacerbation (Chronic) Proteinuria (Chronic) CHF (congestive heart failure) (Chronic) Essential (primary) hypertension (Chronic) Medical History: Medical History (Last Reviewed 03/03/19 @ 11:10 by Yimi Castro MD) Pericardial effusion (Acute) I31.3 Anasarca (Acute) R60.1 Pleural effusion (Acute) J90 Right thoracentesis 01/13/19 Proteinuria (Chronic) R80.9 CHF (congestive heart failure) (Chronic) I50.9 Essential (primary) hypertension (Chronic) I10 Allergies No Known Allergies Allergy (Verified 04/07/19 16:47) Home Medications: Ambulatory Orders Medication Instructions Recorded Acyclovir 400 mg PO QWEEK 03/03/19 Doxycycline Hyclate 100 mg PO DAILY 03/03/19 Levothyroxine Sodium 25 mcg PO DAILY@0600 03/03/19 Furosemide 40 mg PO BID #120 tab 03/05/19 Potassium Chloride [K-Dur] 40 meq PO DAILY 04/07/19 Lisinopril 2.5 mg PO DAILY 04/08/19 Metoprolol(XL)Succ [Toprol Xl 50 mg PO DAILY 04/08/19 (Beta Zak)] Surgical History: Surgical History (Last Reviewed 03/03/19 @ 11:10 by Yimi Castro MD) History of open reduction and internal fixation (ORIF) procedure Z98.890 left foot Surgical History: no surgical history Lives: Spouse/ Significant Other Smoking Status: Former smoker Tobacco Use: Cigarettes - *Family History Maternal History Items: - - Mother patient unsure of the cause Paternal History Items: - - Patient not sure of father's cause of Review of Systems Constitutional: Denies: Chills, Fever, Weight Change HEENT: Denies: Head Aches, Sinus Congestion, Sinus Drainage Cardiovascular: Denies: Chest Pain, Palpitations Respiratory: Denies: Cough, Shortness of breath at rest, Sputum production Gastrointestinal: Denies: Abdominal Pain, Nausea, Vomiting Genitourinary: Denies: Dysuria Musculoskeletal: Denies: Joint Pain, Joint Tenderness Skin: Denies: Rash, Wounds Neurological: Denies: Numbness, Tingling, Focal weakness Psychiatric: Denies: Anxiety, Depression, Homicidal Ideations, Suicidal Ideations Hematologic/ Lymphatic: Denies: Easy Bruising, Easy Bleeding VTE Information - Inpt Only VTE Present on Admission: No VTE Pharm Prophylaxis ordered?: Yes Patient Problems: Active and Suspected Problems (Last Reviewed 03/03/19 @ 11:10 by Yimi Castro MD) Respiratory failure (Acute) - Physical Exam Vitals/I&O's: Vital Signs Temp Pulse Resp BP Pulse Ox 98.1 F 103 H 36 H 135/101 H 97 04/08/19 02:55 04/08/19 02:55 04/08/19 02:55 04/08/19 02:55 04/08/19 02:55 Oxygen Flow Rate (L/min) 4 Oxygen Delivery Method Bi-pap Weight: 99.79 kg Body Mass Index (BMI) 29.8 General: Alert, Oriented x3, Cooperative, - - in mild respiratory distress, on Bipap HEENT: Atraumatic, PERRLA, EOMI, Normocephalic Oral: Moist Mucosa Neck: Supple Lungs: Clear to auscultation, Normal air movement Cardiovascular: Regular rate, Regular Rhythm, Normal S1, Normal S2, No murmurs Abdomen: Bowel Sounds Present, Soft, Non Tender, Non-Distended, No Hepato- splenomegaly, Obese Extremities: Edema - bilateral pedal +2 Skin: No rashes Musculoskeletal: No Tenderness to Palpation of Joints or Extremities Lymphatic: No Cervical, Supraclavicular, or Inguinal Adenopathy Neurological: Cranial nerves II-XII grossly intact, Neuro grossly intact Psych/Mental Status: Normal Affect, Appropriate Laboratory Results 04/08/19 01:04: WBC 6.7, RBC 3.70 L, Hgb 11.7 L, Hct 38.9 L, MCV 105.1 H, MCH 31.6, MCHC 30.1 L, RDW Std Deviation 53.4 H, RDW Coeff of Babita 13.9, Plt Count 133 L, MPV 11.3, Immature Gran % (Auto) 0.300, Neut % (Auto) 84.1 H, Lymph % (Auto) 9.4 L, [place] % (Auto) 5.8, Eos % (Auto) 0.0, Baso % (Auto) 0.4, Absolute Neuts (auto) 5.7, Absolute Lymphs (auto) 0.63 L, Nucleated RBC % 0, Differential Comment SCANNED 04/08/19 01:04: Sodium 143, Potassium 4.8, Chloride 100, Carbon Dioxide > 45.0 H*, Anion Gap TNP, BUN 22 H, Creatinine 0.93, Estim Creat Clear Calc 83.44, Est GFR (MDRD) Af Amer 104, Est GFR (MDRD) Non-Af 86, BUN/Creatinine Ratio 23.7 H, Glucose 112 H, Calcium 8.5, Total Bilirubin 0.30, AST 17, ALT 30, Alkaline Phosphatase 87, Troponin I 0.065 H, Total Protein 5.1 L, Albumin 2.0 L, Globulin 3.1, Albumin/Globulin Ratio 0.6 L 04/08/19 01:04: B-Natriuretic Peptide 912.3 H 04/08/19 01:50: Urine Color Yellow, Urine Clarity Clear, Urine pH 5.0, Ur Specific [place] 1.025, Urine Protein 500 H, Urine Glucose (UA) Normal, Urine Ketones Negative, Urine Occult Blood 50 H, Urine Nitrite Negative, Urine Bilirubin Negative, Urine Urobilinogen 1 H, Ur Leukocyte Esterase Negative, Urine RBC 5-10 SEEN, Urine WBC 0 SEEN, Ur Squamous Epith Cells 0 SEEN, Amorphous Sediment 2+, Urine Bacteria 0 SEEN, Hyaline Casts 5-10 SEEN, Urine Mucus 0 SEEN Assessment/Plan All Active Problems (Last Reviewed 03/03/19 @ 11:10 by Yimi Castro MD) Diastolic CHF, acute on chronic (Acute) Respiratory failure (Acute) Pericardial effusion (Acute) Anasarca (Acute) Pleural effusion (Acute) 68 year old M with past medical history of nephrotic syndrome/amyloidosis who comes in with recurrent falls as well as difficulty ambulating. 1. Shortness of breath secondary to acute on chronic CHF versus vascular congestion from hypoalbuminemia secondary to proteinuria Patient's previous 2D echo shows normal EF, managed as as acute diastolic CHF in previous admission Patient received Lasix 80 mg IV x1 in the ED We will continue with Lasix 40 mg every 8 Strict I's and O's, [place] wraps to lower extremity Repeat blood work in a.m. 2. Systemic amyloidosis with proteinuria, following with nephrology and oncology Undergoing chemotherapy in the outpatient 3. Hypertension, controlled, continue on Lisinopril and metoprolol Continue to monitor vitals closely 4. Hypothyroidism, continue levothyroxine 5. Recurrent falls, debility secondary to above nephrotic syndrome with amyloidosis PT and OT to evaluate and treat 6. DVT PPx- Heparin SC Code Visit Inpatient E&M: 89399 Init Hosp L3
[2019-04-08] MEDS: Heparin Injection (Vial) 5,000 UNIT/ML VIAL 5000 UNIT SC ×2 (06:26→21:15)
--- NOTE | 2019-04-08 08:18 | CPS ---
critical values called to
[2019-04-08] MEDS: Metoprolol(XL)Succ 50 MG Tablet PO (09:42)
--- NOTE | 2019-04-08 10:04 | US_ITS ---
PROCEDURE: ULTRASOUND GUIDED THORACENTESIS. DATE: April 08, 2019. INDICATION: Male, 68 years old. Right pleural effusion. PHYSICIAN: Rory Rosa M.D. PROCEDURE: The risks, benefits, and alternatives to the procedure were explained to the patient. The specific risks of bleeding, infection, and pneumothorax requiring chest tube insertion were discussed and accepted. Written informed consent was obtained. Ultrasonographic evaluation of the right lower pleural space was carried out. An adequate pocket was identified. The patient was placed in the sitting, upright position. The overlying skin was prepped and draped in sterile fashion. 1% lidocaine was administered subcutaneously for local anesthesia. Under ultrasound guidance, a 5 Iraqi thoracentesis needle/catheter system was advanced into the right posterior lower pleural fluid collection. Approximately 2000 mL of kai-colored fluid was drained. The catheter was removed, and a sterile dressing was applied. The patient tolerated the procedure well. A chest x-ray was ordered. US/Thoracentesis W US IMPRESSION: Ultrasound-guided right thoracentesis. Electronically Signed: Rory Rosa, at 13:56 EST , Service support ,
--- NOTE | 2019-04-08 10:05 | ECHOD_ITS ---
Reason For Study: Dyspnea/SOB Procedure This was a 2D Doppler, Color Flow transthoracic echocardiogram. The study was technically difficult. Exam performed portable in patient room. Left Ventricle Moderate concentric left ventricular hypertrophy. Global scintillating LV consistent with amyloidosis. Stage 1 diastolic dysfunction. No regional wall motion abnormalities noted. Right Ventricle Normal size and thickness. Normal systolic function. Atria Normal left atrium. Normal right atrium. Normal atrial septum. Mitral Valve The mitral valve is structurally normal. No prolapse or stenosis seen. Trivial mitral valve insufficiency. Tricuspid Valve Normal tricuspid valve. Trivial tricuspid valve insufficiency. Unable to estimate RV systolic pressure due to insufficient tricuspid regurgitant envelope. Aortic Valve Normal aortic valve. Trisinus/trileaflet aortic valve. Pulmonic Valve Normal pulmonic valve. Great Vessels Normal aortic root. Normal arch. Normal inferior vena cava. Inferior vena cava collapse with sniff. Pericardium/Pleural Trivial pericardial effusion. Circumferential effusion. There are no echocardiographic indications of cardiac tamponade. Moderate size left pleural effusion. MMode/2D Measurements & Calculations LVIDd: 4.2 cm IVSd: 1.6 cm Ao root diam: 3.6 cm LVIDs: 2.9 cm LVPWd: 1.5 cm RVDd: 2.9 cm FS: 29.1 % LAV(MOD-bp): 70.0 ml LA A4 area: 17.3 cm2 LA dimension(2D): 4.9 cm LAV(MOD-bp) Indexed: 33.9 ml/m2 LAV(MOD-sp2): 99.2 ml LAV(MOD-sp4): 46.1 ml RA A4 area: 12.7 cm2 Doppler Measurements & Calculations Lat Peak E' Moy: 6.4 cm/sec Med Peak E' Moy: 7.2 cm/sec Ao V2 max: 102.2 cm/sec Ao max P.2 mmHg Ao V2 mean: 77.2 cm/sec Ao mean P.6 mmHg Ao V2 VTI: 16.1 cm LV V1 max: 91.3 cm/sec PA V2 max: 104.0 cm/sec LV V1 max P.3 mmHg Interpretation Summary Moderate concentric left ventricular hypertrophy. Global scintillating LV consistent with amyloidosis. Stage 1 diastolic dysfunction. Trivial mitral valve insufficiency. Trivial tricuspid valve insufficiency. Unable to estimate RV systolic pressure due to insufficient tricuspid regurgitant envelope. Trivial to small pericardial effusion. Circumferential effusion. There are no echocardiographic indications of cardiac tamponade. At least moderate size left pleural effusion. Compared with echocardiogram dated 01/09/2019, no appreciable changes noted. Ordering Physician: Verna Beltran Referring Physician: Gerry Rossi Performed By: Lyn Kwon, NIDHI, RVT
[2019-04-08 10:32] LABS: International Normalized Ratio 1.1; Prothrombin Time (Protime)PT. 13.8 SECONDS (11.7-14.9)
[2019-04-08 10:33] LABS: Partial Thromboplast Time 28.8 Seconds (24.1-36.2)
--- NOTE | 2019-04-08 12:22 | CASEMGMT ---
KYM ACKERMAN assessment: Face to Face with patient for initial transition planning/care coordination assessment. KYM ACKERMAN introduced self and role at [facility], pt voices understanding and consents to assessment at this time. Pt is sitting up in bed in no distress at this time. Pt is A/Ox3 at this time but does struggle to answer some questions at times. Care providers, pharmacy, and demographics verified at this time. Presentation: Weakness, confusion, on 2liters oxygen at home and needed 4 liters in triage. Admitting dx: Acute CHF, debility, falls PCP: [facility] Specialists: nelly Crowder Preferred [facility]acy: [facility] Insurance: MMO, MCR A Prescription Benefit: Yes Living Will/HPOA: Pt states has LW/HPOA and is aware that they are on file at [facility] at this time. Pt states his girlfriend, Juany Curiel, is HPOA. LNOK: Juany Curiel, girlfriend Living Arrangements: Pt states lives with girlfriend in 2 story home with bedroom on 2nd floor. Pt states has been having difficulty with stairs at time and pt has had frequent falls at home with abrasions currently noted to head and right posterior shoulder. Pt states is independent with ADL's at home but has been weaker. Transportation: Pt states drives self and states no transportation concerns at this time. DME/HHC: Pt states has a cane, shower chair, and 2 liters home oxygen 24/ thru 'a place in [place].' Pt states no need for any further DME at this time. Pt states no hx of HHC but has been to TCU in the past. Pt states no concerns with going home at time of discharge. 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 Pt states does not smoke or drink ETOH. Pt states no further concerns/needs at this time. CM to follow PT/OT evals, increased oxygen need, and for any further discharge planning/needs. Advised pt to ask for CM if any further questions/concerns/needs arise, voices understanding. Pt Goal: Home Plan: TBD [place] KYM ACKERMAN
--- NOTE | 2019-04-08 13:30 | RAD_ITS ---
STUDY: X-RAY CHEST REASON FOR EXAM: Male, 68 years old. POST THORACENTESIS INSPIRATION AND EXPIRATION. TECHNIQUE: AP inspiration and expiration views. COMPARISON: Comparison is made with prior examination dated April 2019 at 10:37 AM. FINDINGS: The patient is status post right thoracentesis. There is no evidence of pneumothorax. RAD/Chest Insp/Exp 2 View IMPRESSION: Status post right thoracentesis. There is no evidence of pneumothorax. Electronically Signed: Rory Rosa, at 13:55 EST , Service support ,
[2019-04-08 14:11] LABS: Allen Test POS; Base Excess 27 mmol/L (-2 to +2); Bicarbonate 52.6 mmol/L (22-26); Blood Gas Specimen Type ART; EPAP 6; FI02 50; IPAP 12; PO2 104 mmHG (75-100); RR 12; SITE R Radial; SO2 97 % (95-99); Time Given 800; Total Carbon Dioxide > 50 mmol/L; pCO2 89.9 mmHg (35-45); pH 7.38 (7.35-7.45)
--- NOTE | 2019-04-08 14:32 | NURSING ---
Patient RR in 30s. Satting well on 4L. Refusing bipap.
--- NOTE | 2019-04-08 14:41 | PCM.PN.BLA ---
Progress Note This is a 68 years old male patient presented to the emergency room because of worsening shortness of breath, frequent falls and weakness. He was admitted as a case of acute on chronic CHF. On chest x-ray, patient was found to have worsening right subpleural effusion. This patient had a history of right pleural effusion for which she underwent thoracentesis back on December, which tended to be transudative. Patient history of multiple myeloma and he has been on chemotherapy, last treatment was last week. During his hospital stay on December,, he was found to have small pericardial effusion on echocardiogram. His troponin is abnormal, has been kind of flat. Patient denied any chest pain. EKG revealed sinus tachycardia, inverted T waves in V4, V5 and V6 and those are chronic changes, low voltage QRS. Patient underwent thoracentesis today, 2 L drained out. He is on IV Lasix for diuresis. Plan to do 2D echocardiogram to rule out worsening or increasing pericardial effusion. STROKE Vital Signs/Narrative: Vital Signs Temp Pulse Pulse Pulse Pulse Pulse Resp 04/08/19 14:25 33 H 04/08/19 14:19 97.8 F 89 33 H 04/08/19 13:03 97.6 F L 102 H 25 H 04/08/19 12:59 108 H 103 H 94 94 04/08/19 12:00 97.9 F 115 H 29 H 04/08/19 11:01 110 H Resp Resp Resp Resp BP BP BP 04/08/19 14:25 04/08/19 14:19 96/67 04/08/19 13:03 110/91 H 04/08/19 12:59 36 H 30 H 30 H 30 H 126/75 H 110/91 H 04/08/19 12:00 126/75 H 04/08/19 11:01 BP BP Pulse Ox 04/08/19 14:25 04/08/19 14:19 97 04/08/19 13:03 96 04/08/19 12:59 85/50 L 83/55 L 04/08/19 12:00 96 04/08/19 11:01
--- NOTE | 2019-04-08 15:09 | CASEMGMT ---
Patient has a Healthcare POA and Healthcare LW on file at [facility]. Manuela LOCKETT GEOSPATIAL ENGINEER
[2019-04-08] MEDS: Furosemide 40 MG/4 ML Vial IV (17:12)
[2019-04-08] MEDS: 0.9% Saline Lock 10 ML Syringe IV ×3 (17:12→23:16)
--- NOTE | 2019-04-08 22:40 | RAD_ITS ---
HISTORY: progressive shortness of breath. CHF with right thoracentesis performed earlier this same day with 2000 cc fluid removed. EXAMINATION/TECHNIQUE: XR Chest 1 View: Portable 2241 hrs. COMPARISON: Portable chest 04/08/2019 1324 hrs. and portable chest 04/07/2019 and CTA chest 01/09/2019 FINDINGS: Recent right thoracentesis. No pneumothorax. With comparison to the postthoracentesis portable chest exam, right basilar pleural effusion has reaccumulated with moderate to large right pleural effusion. Secondary right middle lobe and right lower lobe passive atelectatic changes. Small left pleural effusion and left basilar atelectasis without significant change. The heart is unchanged in size. Right IJ Port-A-Cath, unchanged in position. RAD/Chest 1 View (Portable) IMPRESSION: 1. Recent right thoracentesis. No pneumothorax. 2. Right pleural effusion has reaccumulated and is now moderate to large in size. Secondary right basilar atelectatic changes. 3. Small left pleural effusion and left basilar atelectasis without significant change. at 2308 Reported and signed by: Lele Martinez MD Electronically Signed: Lele Martinez, at 23:07 EST Tel , Service support ,
--- NOTE | 2019-04-08 22:46 | CPS ---
notified of critical pCO2 of 93.3.
--- NOTE | 2019-04-08 22:52 | PN_ITS ---
Progress Note Called about patient with increased respiratory rate, RR >40. He has been on the Bipap since admission. Had thoracocentesis done today with 2L fluid removed. He is restless, trying to take off Bipap, pulling Hamilton catheter. Will get ABG, Chest X-ray, Lasix IV 20mg x1 Discussed patient's CODE STATUS with his power of deputy county attorney, Juany Curiel who is his friend and has lived with him for more than 40 years. Juany is unable to decide on his CODE STATUS as she would like to discuss that with him further. I told her that he was more confused. She states that patient is more confused these days than he has ever been. She is more concerned about his upcoming bone marrow biopsy. She is worried that if he is eventually intubated, patient would not be able to go for his bone marrow biopsy and treatment. I encouraged her to discuss the goals of care with the team in the morning and let them know what she decides on. In the meantime, she agrees that showed he need emergent intubation for progressive respiratory failure, she is okay with him being intubated. Patient will be full code pending more definitive decision by his power of atto rney for health care Time spent discussing CODE STATUS AND GOALS OF CARE: 20 minutes STROKE Vital Signs/Narrative: Vital Signs Temp Pulse Resp BP Pulse Ox 04/08/19 21:48 120 H 38 H 95 04/08/19 21:00 99.0 F 106 H 26 H 121/78 H 94 04/08/19 19:00 98.1 F 118 H 44 H 104/72 96 Code Visit Procedures: 40509 Advncd Care Plan 30 Min
[2019-04-08] MEDS: Furosemide 20 MG/2 ML VIAL IV (23:12)
[2019-04-09] VITALS (20 sets, daily range): BP systolic 97–149; BP diastolic 59–99; PULSE 77–102; RESP 12–28; TEMP 36.7–37.3; O2SAT 95–99
[2019-04-09] MEDS: Levothyroxine 25 MCG TABLET PO (05:33)
[2019-04-09] MEDS: Heparin Injection (Vial) 5,000 UNIT/ML VIAL 5000 UNIT SC ×3 (05:33→21:16)
[2019-04-09] MEDS: 0.9% Saline Lock 10 ML Syringe IV (05:35)
--- NOTE | 2019-04-09 05:55 | RAD_ITS ---
STUDY: X-RAY CHEST REASON FOR EXAM: Male, 68 years old. RT PLEURAL EFFUSION -- S/P THORACENTESIS -- BEST IMAGE POSSIBLE, PT VERY CONFUSED and amp; AGITATED TECHNIQUE: Single AP portable view of the chest. COMPARISON: Comparison is made with prior examination dated April 08, 2019 at 10:41 PM. FINDINGS: A right-sided portacatheter is seen with the tip in the right atrium. EKG electrodes are seen. Since prior study, there has been slight progression in the pleural parenchymal changes at the right lung base. Stable pleural parenchymal changes at the left lung base. There is moderate cardiac enlargement. Normal mediastinum and eric. Normal visualized pulmonary arteries. Normal visualized aortic arch and descending thoracic aorta. There are diffuse degenerative changes of the visualized thoracic spine. Normal visualized ribs, clavicles, and shoulders. There is no demonstrated abnormality of the visualized soft tissue structures of the upper abdomen. RAD/Chest 1 View (Portable) IMPRESSION: Progressive pleural parenchymal changes at the right lung base. Electronically Signed: Rory Rosa, at 8:11 EST , Service support ,
[2019-04-09 06:09] LABS: Absolute Lymphocyte Count 0.56 X10^3/uL (0.83-4.51); Absolute Neutrophil Count 5.8 X10^3/uL (2.0-7.7); Basophil# 0.02 X10^3/uL; Basophil% 0.3 % (0-1); Differential Indicated SCAN CRITERIA MET; Hematocrit 30.5 % (40-54); Hemoglobin 9.5 g/dL (13.0-16.5); Lymphocyte # 0.56 X10^3/ul (4.0); Lymphocyte % 8.5 % (19-41); Mean Corp Hgb Conc 31.1 g/dL (32-36); Mean Corpuscular Hgb 31.8 pg (27.0-32.0); Mean Platelet Vol. 12.2 fl (6.2-12.0); Monocyte# 0.24 X10^3/uL; Monocyte% 3.6 % (0-10); NRBC Flagged by Analyzer 0 % (0-5); Neutrophil # 5.75 X10^3/uL (2.7-7.7); Neutrophil % 87.4 % (47-70); POSITIVE COUNT YES; POSITIVE DIFFERENTIAL YES; Platelet Count 95 K/mm3 (150-450); RBC Distribution Width CV 13.7 % (11.6-14.6); RBC Distribution Width SD 50.7 fl (35.1-43.9); Red Blood Count 2.99 M/mm3 (4.6-6.2); White Blood Count 6.6 K/mm3 (4.4-11.0)
[2019-04-09 06:16] LABS: BUN 33 mg/dL (7-18); BUN/Creat Ratio 29.5 RATIO (10-20); Calcium,Total 8.3 mg/dL (8.5-10.1); Carbon Dioxide > 45.0 mmol/L (21.0-32.0); Chloride 99 mmol/L (98-107); Creatinine, Serum 1.12 mg/dL (0.70-1.30); EST Glomerular Filtration Rate 69 mL/min (>60); Est Glom Filt Rate - Afr Amer 84 mL/min (>60); Estimated Creatinine Clearance 63.13 ml/min; Glucose 125 mg/dL (74-106); Potassium 4.5 mmol/L (3.5-5.1); Sodium Level 145 mmol/L (136-145)
[2019-04-09 06:39] LABS: Differential Comment SCANNED
[2019-04-09 07:56] LABS: Allen Test POS; Blood Gas Specimen Type ART; O2 Delivery Device Nasal Can; SITE R RADIAL
[2019-04-09 07:57] LABS: Time Given 2236; pH 7.34 (7.35-7.45)
[2019-04-09 07:58] LABS: Base Excess 25 mmol/L (-2 to +2); PO2 112 mmHG (75-100); Total Carbon Dioxide > 50 mmol/L; pCO2 93.3 mmHg (35-45)
[2019-04-09 07:59] LABS: SO2 98 % (95-99)
--- NOTE | 2019-04-09 08:08 | PCM.PROGNOTE ---
Subjective: Chief complaint: Follow-up after admission for acute on chronic hypoxic respiratory failure, rapidly accumulating right pleural effusion and probable acute on chronic diastolic CHF. Patient seen and examined. Patient has been agitated, trying to take off the BiPAP mask. He mentioned that his breathing is better although he remained on BiPAP. Denied chest pain or palpitation. Obviously, he is short of breath. His other vitals are stable. - Physical Exam Vitals/I&O's: Vital Signs Temp Pulse Resp BP Pulse Ox 98.2 F 93 23 H 133/92 H 97 04/09/19 02:00 04/09/19 07:00 04/09/19 04:46 04/09/19 02:00 04/09/19 04:36 Oxygen Flow Rate (L/min) [4] 4 Oxygen Flow Rate (L/min) [3] 4 Oxygen Flow Rate (L/min) [2] 4 Oxygen Flow Rate (L/min) [1 ( 4 Initial Baseline)] Oxygen Flow Rate (L/min) 6 Oxygen Delivery Method [4] Nasal Cannula Oxygen Delivery Method [3] Nasal Cannula Oxygen Delivery Method [2] Nasal Cannula Oxygen Delivery Method [1 ( Nasal Cannula Initial Baseline)] Oxygen Delivery Method Bi-pap Weight: 218 lb 4.122 oz Body Mass Index (BMI) 32.1 Intake and Output for Last 24 Hours 04/07/19 04/08/19 04/09/19 23:59 23:59 23:59 Intake Total 717 / 717 237 / 237 Output Total 2425 / 2425 200 / 200 Balance -1708 / -1708 37 / 37 General: Alert, Cooperative, No apparent distress, - - Moderately short of breath. HEENT: Atraumatic, PERRLA, EOMI, Normocephalic Oral: Moist Mucosa, No Gingival or Mucosal Lesions/ Ulcerations Neck: Supple, No JVD, Negative Carotid Bruits, Trachea Midline, Thyroid Normal Size and Texture Lungs: No wheeze, No rales, Diminished, Rhonchi, Short of Breath, Tachypneic, - - Markedly decreased breath sounds in the right base, scattered rhonchi. Cardiovascular: Regular rate, Regular Rhythm, Normal S1, Normal S2, PMI Normal Abdomen: Bowel Sounds Present, Soft, Non Tender, Non-Distended, No Hepato-splenomegaly Extremities: No clubbing, No cyanosis, Edema - ++ Edema. Skin: No rashes, No breakdown Lymphatic: No Cervical, Supraclavicular, or Inguinal Adenopathy Neurological: Cranial nerves II-XII grossly intact, Motor Exam 5/5 strength throughout Psych/Mental Status: Normal Affect, Appropriate Laboratory Results 04/08/19 07:26: Specimen Type ART, Sample Site R Radial, pH 7.38, Bicarbonate Actual 52.6 H, POC Total CO2 > 50, Base Excess 27 H, O2 Saturation 97, O2 % 50, ABG pCO2 89.9 H*, ABG pO2 104 H, Danielito Test POS, Respiration Rate 12, O2 Delivery Device Bi / C PAP, EPAP 6, IPAP 12, Blood Gas Notified Whom [facility] , Blood Gas Notified Time 800 04/08/19 10:05: Troponin I 0.074 H 04/08/19 10:05: PT 13.8, INR 1.1, APTT 28.8 04/08/19 12:45: Troponin I 0.058 H 04/08/19 22:36: Specimen Type ART, Sample Site R RADIAL, pH 7.34 L, Bicarbonate Actual 51.0 H, POC Total CO2 > 50, Base Excess 25 H, O2 Saturation 98, ABG pCO2 93.3 H*, ABG pO2 112 H, Danielito Test POS, O2 Delivery Device Nasal Can, Liter Flow 6.0, Blood Gas Notified Whom LILIANA FOWLER, Blood Gas Notified Time 2236 04/09/19 05:36: WBC 6.6, RBC 2.99 L, Hgb 9.5 L, Hct 30.5 L, MCV 102.0 H, MCH 31.8, MCHC 31.1 L, RDW Std Deviation 50.7 H, RDW Coeff of Babita 13.7, Plt Count 95 L, MPV 12.2 H, Immature Gran % (Auto) 0.200, Neut % (Auto) 87.4 H, Lymph % (Auto) 8.5 L, Coffey % (Auto) 3.6, Eos % (Auto) 0.0, Baso % (Auto) 0.3, Absolute Neuts (auto) 5.8, Absolute Lymphs (auto) 0.56 L, Nucleated RBC % 0, Differential Comment SCANNED 04/09/19 05:36: Sodium 145, Potassium 4.5, Chloride 99, Carbon Dioxide > 45.0 H*, Anion Gap TNP, BUN 33 H, Creatinine 1.12, Estim Creat Clear Calc 63.13, Est GFR (MDRD) Af Amer 84, Est GFR (MDRD) Non-Af 69, BUN/Creatinine Ratio 29.5 H, Glucose 125 H, Calcium 8.3 L Clinical Impression(s) from Imaging Studies Thoracentesis Ultrasound 04/08/19 10:04 IMPRESSION: Ultrasound-guided right thoracentesis. Electronically Signed: Rory Moe, at 13:56 EST , Service support , Chest X-Ray 04/08/19 13:30 IMPRESSION: Status post right thoracentesis. There is no evidence of pneumothorax. Electronically Signed: Rory Rosa, at 13:55 EST , Service support , Chest X-Ray 04/08/19 22:40 IMPRESSION: 1. Recent right thoracentesis. No pneumothorax. 2. Right pleural effusion has reaccumulated and is now moderate to large in size. Secondary right basilar atelectatic changes. 3. Small left pleural effusion and left basilar atelectasis without significant change. at 2308 Reported and signed by: Lele Martinez MD Electronically Signed: Lele Martinez, at 23:07 EST Tel , Service support , Current Medications Acetaminophen (Tylenol) 650 mg PO Q6H PRN PRN PRN Reason: Pain Score 1-10/Temp > 100.7 F Acyclovir (Zovirax) 400 mg PO QWEEK COLLEEN Furosemide (Lasix) 40 mg IV BID@1000,1800 COLLEEN Last Admin: 04/08/19 17:12 Dose: 40 mg Documented by: Glucagon () 1 mg IM .X1 PRN PRN Reason: Hypoglycemia Guaifenesin (Robitussin) 20 ml PO Q4H PRN PRN PRN Reason: COUGH Heparin Sodium (Beef Lung) () 50 units IV UD PRN PRN Reason: Port-a-Cath (VAD)Heparin Flush Heparin Sodium (Porcine) (Heparin Na) 5,000 unit SC Q8 [facility] Last Admin: 04/09/19 05:33 Dose: 5,000 unit Documented by: Dextrose (Dextrose 10%-Water) 250 mls @ 999 mls/hr IV .Q16M PRN; Protocol PRN Reason: HYPOGLYCEMIA Levothyroxine Sodium (Synthroid) 25 mcg PO DAILY@0600 [facility] Last Admin: 04/09/19 05:33 Dose: 25 mcg Documented by: Magnesium Hydroxide (Milk Of Magnesia) 30 ml PO DAILY PRN PRN PRN Reason: Constipation Metoprolol Succinate (Toprol Xl (Beta Zak)) 50 mg PO DAILY [facility] Last Admin: 04/08/19 09:42 Dose: 50 mg Documented by: Nitroglycerin (Nitrostat) 0.4 mg SUBLINGUAL Q5M PRN PRN Reason: CARDIAC/CHEST PAIN Ondansetron HCl (Zofran) 4 mg IV Q8H PRN PRN PRN Reason: NAUSEA/VOMITING Sodium Chloride () 10 - 40 ml IV UD PRN PRN Reason: Port-a-Cath (VAD) Flush Last Admin: 04/09/19 05:35 Dose: 30 ml Documented by: Sodium Chloride (0.9% Nacl (Sterile) Posiflush) 10 - 40 ml IV UD PRN PRN Reason: Port access or dressing change Medical Necessity - Tobacco Use Smoking Status: Former smoker Assessment/Plan All Active Problems (Last Updated 04/09/19 @ 08:12 by Verna Beltran MD) Diastolic CHF, acute on chronic (Acute) Pericardial effusion (Acute) This is a 68 years old male patient presented to the emergency room because of worsening shortness of breath and weakness, found to have increasing right pleural effusion complicated by acute on chronic hypercapnic and hypoxic respiratory failure and also found to have probable acute on chronic diastolic CHF. #1 acute on chronic hypercapnic and hypoxic respiratory failure: Secondary to recurrent pleural effusions as well as probable acute CHF. Patient underwent thoracentesis on the right side, 2 L was taken out and he has been on IV Lasix. He is on BiPAP and he has been noncompliant with it. Repeat chest x-ray from today revealed reaccumulating right pleural effusion. 2D echocardiogram revealed stage I diastolic dysfunction, trivial to small pericardial effusion, global scintillating left ventricle consistent with amyloidosis, no mention of ejection fraction. Plan: Continue IV diuresis, continue BiPAP, oncology consult. #2 recurrent right pleural effusion: Patient had thoracentesis back on December,, effusion seemed to be transudative. He underwent right thoracentesis yesterday. Today, repeat chest x-ray revealed rapidly reaccumulating right pleural effusion. Plan to consult oncology, patient may need placement of Pleurx catheter. #3 probable acute on chronic diastolic CHF: On IV Lasix, and he is on metoprolol. Lisinopril held. 2D echocardiogram reviewed as above. His kidney function is stable. #4 hypertension: Blood pressure stable, continue metoprolol. Lisinopril on hold. #5 amyloidosis: Currently on treatment by oncology, oncology consulted. #6 hypothyroidism: Continue levothyroxine. #7 nephrotic syndrome with proteinuria: Secondary to amyloidosis. Kidney function is stable. #8 DVT prophylaxis: Subcu heparin. This note was generated with [employer] dictation software. It may contain incorrect words, spelling, and punctuation that were not noted in checking the note before signing. Code Visit Inpatient E&M: 94093 Subs Hosp L2
[2019-04-09] MEDS: Furosemide 40 MG/4 ML Vial IV ×2 (09:08→17:23)
[2019-04-09] MEDS: Metoprolol(XL)Succ 50 MG Tablet PO (09:08)
--- NOTE | 2019-04-09 11:42 | ONC.CON.INP2 ---
- Problem List (1) Amyloidosis Status: Chronic Subjective Chief Complaint: weakness, SOB History of Present Illness: HPI: the patient is a 68-year-old male who presented to the hospital for congestive heart failure and anasarca in December 2018. Patient had?a?history of controlled hypertension and hypothyroidism stable on medications. Over the preceding 3 months he had gained a significant amount of weight with increased shortness of breath. He denied chest pain,?dizziness,?lightheadedness or palpitation. He was started on lisinopril several months prior for hypertension and developed cough ?He denied headaches,?peripheral neuropathy or symptom of hyperviscosity. ?He denied easy bruising or bleeding.?He also denied nausea, vomiting or diarrhea. ? ? His initial evaluation in office showed?an elevated BNP and chest x-ray concerning for left?pleural effusion with EKG changes with low voltage.?He was admitted to [facility]Cardiology and nephrology was consulted. He was diuresed and thoracentesis fluid was negative for malignancy. 24 hour urine show nephrotic syndrome with proteinuria . His initial serum protein electrophoresis showed?no M proteins?but his urine showed?Bence Beal protein. Ultrasound of kidney and bladder were normal. ?His 2-D echocardiogram showed concentric hypertrophy of the left ventricle with normal ejection fraction 60%. Small pericardial effusion. Renal biopsy indicated amyloidosis. Further workup in the outpatient setting included a bone marrow biopsy on 02/04/2019. Pathology: BONE MARROW, ASPIRATE SMEARS, TOUCH IMPRINT, CORE BIOPSY AND CLOT SECTION WITH PERIPHERAL BLOOD SMEAR: - MILDLY HYPERCELLULAR MARROW (50-60%) WITH TRILINEAGE HEMATOPOIESIS. - PLASMA CELL NEOPLASM, LAMBDA MONOTYPIC (5-10%). - LYMPHOID AGGREGATE, BENIGN. - INCREASED STORAGE IRON. COMMENT: The patient has renal amyloid with suspected cardiac amyloid and a lambda paraprotein. Flow cytometric analysis was performed on the bone marrow aspirate and showed no evidence of a lymphoproliferative disorder. [place] red stain was negative for amyloid. Correlation with results of pending conventional cytogenetic analysis and FISH studies is recommended. Normal cytogenetics, but t(11;14)/CCND1-IGH by FISH suggesting standard risk disease. Patient completed 1 cycle of bortezomib, cyclophosphamide and dexamethasone. He received treatment on 03/13, 03/20 and 03/27. Patient presented to emergency room with leg weakness and falling. He also had progressive dyspnea. He is on 2 L of oxygen continuously at home but over the last several days it required increased oxygen flow. His saturation on presentation with 4 L/m was 96%. CBC was unremarkable. Chemistry panel demonstrated a CO2 greater than 45. Creatinine was 0.93 mg/dL. CT of the brain demonstrated no acute intracranial abnormality. Bilateral pleural effusions along with cardiomegaly were observed on chest x-ray. Repeat echocardiogram demonstrated moderate concentric LVH. Global scintillating of the left ventricle was noted consistent with amyloidosis. Stage I diastolic dysfunction was determined. There was mitral valve insufficiency as well as tricuspid valve insufficiency. There was a trivial to small pericardial circumferential effusion. There was no evidence of tamponade physiology. No change was noted from echocardiogram done 01/09/2019. Underwent right-sided thoracentesis yesterday. 2000 MLS of kai-colored fluid were removed. Patient has been undergoing diuresis with intravenous furosemide 40 mg twice daily. However chest x-ray yesterday afternoon suggested rather rapid reaccumulation of right-sided pleural effusion. Patient is conversant but is confused. He denies dyspnea at rest. denies chest pain and cough. Has Hamilton catheter in place. No gross hematuria observed. hasn't had any symptomatic side effects from chemotherapy including nausea/vomiting/diarrhea. He denies symptoms of sensory neuropathy. Past Medical History: Chronic Problems (Last Updated 04/09/19 @ 08:12 by Verna Beltran MD) Nephrotic syndrome (Chronic) Amyloidosis (Chronic) Diastolic CHF (Chronic) Proteinuria (Chronic) CHF (congestive heart failure) (Chronic) Essential (primary) hypertension (Chronic) Past Medical/Surgical History: Past Medical History - Most Recent Inpatient Visit Past Medical History Start: 04/08/19 04:11 Text: Status: Complete Freq: ONCE Protocol: Document 04/08/19 04:11 PAUL (Rec: 04/08/19 04:36 SAM [id number]) BMI Required to complete PMH What is Patient's BMI 32.2 Past Medical History Unable History Recalled Yes Query Text:Pt Unable/Family Not Present Neurologic Medical History Hx Stroke/TIA No Hx Dementia/Alzheimer's No Hx Parkinson's Disease No Hx Seizures No Hx Multiple Sclerosis No Hx Migraines No Cardiac Medical History VTE Present on Admission No Hx of Deep Vein Thrombosis/VTE/PE No Hx Hypertension Yes Hx Chest Pain/Angina No Hx Heart Attack No Hx Cardiac Surgery/Stents/Etc. No Hx Heart Failure Yes Hx Pacemaker/AICD No Hx Irregular Heartbeat and/or Afib No Hx Anticoagulant Therapy No Query Text:(Coumadin, Aspirin, Plavix, Xarelto, etc.) Hx Pain in Legs when Walking/Leg Cramps No Respiratory Medical History Hx COPD No Hx Emphysema No Hx Smoking Yes Smoking Status Former smoker Tobacco Use Cigarettes Years Smoking 10 Packs Smoked per Day 1 Hx Smoking Cessation Date 04/01/99 Hx Smoking Cessation Counseling No Hx Smoking Exposure Yes Hx Tobacco Use in last 12 months No Hx of Pipe Smoking Yes Hx of Cigar Smoking No Hx Sleep Apnea No CPAP No BIPAP No Do you snore loudly (louder than talking Yes or can be heard through closed doors)? Do you often feel tired/ fatigued/ Yes sleepy during daytime? Has anyone observed you stop breathing No during sleep? STOP Results Positive GI Medical History Hx Ulcer No Hx Hepatitis No Hx Cirrhosis No Hx GI Bleed No Hx Unplanned Weight Loss Yes Genitourinary Medical History Indwelling Catheter in Place on Arrival/ Yes Admission Hx Renal Disease No Hx Dialysis No Musculoskeletal History Hx Arthritis No Hx Rheumatoid Arthritis No Endocrine Medical History Hx Diabetes No Hx Thyroid Disease Yes Hematologic Medical History Hx of Blood Transfusion No Hx of Transfusion in last 3 Months No Ever experience any problems with No transfusion(s)? Hx of Preganancy in last 3 Months N/A Nurse Filling Out Transfusion & LKNAPP Questions: Date: 04/08/19 Time: 04:35 Psycho/Social Medical History Hx Depression No Hx Anxiety No Hx Behavior Disorder No Hx Alcohol Use Yes: occasional Hx Substance Use No Other Medical History Hx Blood Disorders No Hx Anemia No Hx Cancer No: sees Dr. Crowder. family unsure of bone marrow disorder Hx Drug Resistant Organism No Wound/Pressure Injury Present on Arrival Yes /Admission Query Text:If yes, chart assessment in Shift/Clinical Findings Central Line/PICC/VAD Present on Arrival Yes /Admission Antibiotics within last 7 days? No Comments last chemo 03/27/19. Per Pt not a CA diagnosis. Methicillin Resistant Staphylococcus aureus Screening Active MRSA No Risk for Readmission Number of Risk Factors 3 At Risk for Readmission Patient is At Risk For Readmission Patient is eligible for Call Back Y Past Medical History (Last Updated 04/09/19 @ 08:12 by Verna Beltran MD) Pericardial effusion (Acute) Proteinuria (Chronic) CHF (congestive heart failure) (Chronic) Essential (primary) hypertension (Chronic) Past Surgical History (Last Reviewed 03/03/19 @ 11:10 by Yimi Castro MD) History of open reduction and internal fixation (ORIF) procedure (Resolved) Maternal Family History: - - Mother patient unsure of the cause Paternal Family History: - - Patient not sure of father's cause of - Social History Lives: Spouse/ Significant Other Smoking Status: Former smoker Tobacco Use: Cigarettes Allergies/Adverse Reactions: Allergy/AdvReac Type Severity Reaction Status Date / Time No Known Allergies Allergy Verified 04/07/19 16:47 Vital Signs Height 1.75 m Weight: 99 kg Weight in Pounds 218.3 lbs Pulse Ox 96 Temperature 99.0 F Pulse Rate [4] 94 Pulse Rate [3] 94 Pulse Rate [2] 103 Pulse Rate [1 (Initial 108 Baseline)] Pulse Rate 86 Respiratory Rate [4] 30 Respiratory Rate [3] 30 Respiratory Rate [2] 30 Respiratory Rate [1 (Initial 36 Baseline)] Respiratory Rate 24 Blood Pressure [BP] 96/69 Blood Pressure [4] 83/55 Blood Pressure [3] 85/50 Blood Pressure [2] 110/91 Blood Pressure [1 (Initial 126/75 Baseline)] Blood Pressure 107/78 Blood Pressure Position [BP] Semi-Fowlers Blood Pressure Position Semi-Fowlers - Physical Exam Cardiac:: Regular rhythm Lungs: - - auscultation is difficult but markedly diminished to absent breath sounds at both bases. Very diminished insp sounds in the upper lung yee. Abdomen:: Soft, Non-tender Extremities:: Edema Laboratory Data: Laboratory Tests 04/09/19 04/09/19 04/08/19 Range/Units 05:36 05:36 22:36 WBC 6.6 (4.4-11.0) K/mm3 RBC 2.99 L (4.6-6.2) M/mm3 Hgb 9.5 L (13.0-16.5) g/dL Hct 30.5 L (40-54) % MCV 102.0 H (80-94) fL MCH 31.8 (27.0-32.0) pg MCHC 31.1 L (32-36) g/dL RDW Std Deviation 50.7 H (35.1-43.9) fl RDW Coeff of Babita 13.7 (11.6-14.6) % Plt Count 95 L (150-450) K/mm3 MPV 12.2 H (6.2-12.0) fl Immature Gran % (Auto) 0.200 (0.0-0.9) % Neut % (Auto) 87.4 H (47-70) % Lymph % (Auto) 8.5 L (19-41) % [place] % (Auto) 3.6 (0-10) % Eos % (Auto) 0.0 (0-5) % Baso % (Auto) 0.3 (0-1) % Absolute Neuts (auto) 5.8 (2.0-7.7) X10^3/uL Absolute Lymphs (auto) 0.56 L (0.83-4.51) X10^3/uL Nucleated RBC % 0 (0-5) % Differential Comment SCANNED Specimen Type ART Sample Site R RADIAL pH 7.34 L (7.35-7.45) Bicarbonate Actual 51.0 H (22-26) mmol/L POC Total CO2 > 50 mmol/L Base Excess 25 H (-2 to +2) mmol/L O2 Saturation 98 (95-99) % O2 % ABG pCO2 93.3 H* (35-45) mmHg ABG pO2 112 H (75-100) mmHG Danielito Test POS Respiration Rate O2 Delivery Device Nasal Can Liter Flow 6.0 /min EPAP IPAP Blood Gas Notified Whom [facility] Blood Gas Notified Time 2236 Sodium 145 (136-145) mmol/L Potassium 4.5 (3.5-5.1) mmol/L Chloride 99 (98-107) mmol/L Carbon Dioxide > 45.0 H* (21.0-32.0) mmol/L Anion Gap TNP BUN 33 H (7-18) mg/dL Creatinine 1.12 (0.70-1.30) mg/dL Estim Creat Clear Calc 63.13 ml/min Est GFR (MDRD) Af Amer 84 (>60) mL/min Est GFR (MDRD) Non-Af 69 (>60) mL/min BUN/Creatinine Ratio 29.5 H (10-20) RATIO Glucose 125 H (74-106) mg/dL Calcium 8.3 L (8.5-10.1) mg/dL Troponin I (<0.045) ng/mL 04/08/19 04/08/19 Range/Units 12:45 07:26 WBC (4.4-11.0) K/mm3 RBC (4.6-6.2) M/mm3 Hgb (13.0-16.5) g/dL Hct (40-54) % MCV (80-94) fL MCH (27.0-32.0) pg MCHC (32-36) g/dL RDW Std Deviation (35.1-43.9) fl RDW Coeff of Babita (11.6-14.6) % Plt Count (150-450) K/mm3 MPV (6.2-12.0) fl Immature Gran % (Auto) (0.0-0.9) % Neut % (Auto) (47-70) % Lymph % (Auto) (19-41) % [place] % (Auto) (0-10) % Eos % (Auto) (0-5) % Baso % (Auto) (0-1) % Absolute Neuts (auto) (2.0-7.7) X10^3/uL Absolute Lymphs (auto) (0.83-4.51) X10^3/uL Nucleated RBC % (0-5) % Differential Comment Specimen Type ART Sample Site R Radial pH 7.38 (7.35-7.45) Bicarbonate Actual 52.6 H (22-26) mmol/L POC Total CO2 > 50 mmol/L Base Excess 27 H (-2 to +2) mmol/L O2 Saturation 97 (95-99) % O2 % 50 ABG pCO2 89.9 H* (35-45) mmHg ABG pO2 104 H (75-100) mmHG Danielito Test POS Respiration Rate 12 O2 Delivery Device Bi / C PAP Liter Flow /min EPAP 6 IPAP 12 Blood Gas Notified Whom HOSP Blood Gas Notified Time 800 Sodium (136-145) mmol/L Potassium (3.5-5.1) mmol/L Chloride (98-107) mmol/L Carbon Dioxide (21.0-32.0) mmol/L Anion Gap BUN (7-18) mg/dL Creatinine (0.70-1.30) mg/dL Estim Creat Clear Calc ml/min Est GFR (MDRD) Af Amer (>60) mL/min Est GFR (MDRD) Non-Af (>60) mL/min BUN/Creatinine Ratio (10-20) RATIO Glucose (74-106) mg/dL Calcium (8.5-10.1) mg/dL Troponin I 0.058 H (<0.045) ng/mL Diagnostic Data: Diagnostic Data Brain CT 04/08/19 00:28 IMPRESSION: 1. Negative for intracranial hemorrhage or acute intracranial disease. 2. Mild cerebral and cerebellar atrophy. Individualized dose optimization techniques were used for this CT. at 0240 Reported and signed by: Lele Martinez MD Electronically Signed: Lele Martinez, at 2:39 EST Tel , Service support , Cervical Spine CT 04/08/19 00:30 IMPRESSION: 1. No fracture or acute osseous abnormality. 2. Cervical spine multilevel degenerative changes. 3. CT exam partly limited by motion artifact. 4. Bilateral pleural effusions, larger on the right. Individualized dose optimization techniques were used for this CT. at 0252 Reported and signed by: Lele Martinez MD Electronically Signed: Lele Martinez, at 2:51 EST Tel , Service support , Thoracentesis Ultrasound 04/08/19 10:04 IMPRESSION: Ultrasound-guided right thoracentesis. Electronically Signed: Rory Rosa, at 13:56 EST , Service support , Chest X-Ray 04/09/19 05:55 IMPRESSION: Progressive pleural parenchymal changes at the right lung base. Electronically Signed: Rory Rosa, at 8:11 EST , Service support , Assessment and Plan 1. Systemic AL amyloidosis Assessment: -Patient recently diagnosed with systemic amyloidosis, lambda light chain type after presenting with nephrotic syndrome and CHF secondary to diastolic dysfunction due to cardiac amyloid involvement. 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 -Patient has received 1 cycle of chemotherapy and symptomatically has tolerated well but now admitted for continued complication of volume overload as a complication of both diastolic CHF (echo characteristic changes of cardiac amyloid) and nephrotic syndrome. -Also appears to have chronic compensated metabolic acidosis as evidenced by marked increase in serum bicarbonate and hypercapnia. Recommendations: -Would check serum protein and albumin. -Check BNP. -Increase frequency of furosemide administration. -Consult nephrology for recommendations regarding diuresis and metabolic acidosis -Consult cardiology for recommendations for ?improving myocardial compliance. -Agree with repeat thoracentesis. Medications: Prescriptions This Visit Medication Instructions Recorded Lisinopril 2.5 mg PO DAILY 04/08/19 Metoprolol(XL)Succ [Toprol Xl 50 mg PO DAILY 04/08/19 (Beta Zak)] Medications Added to Medication List This Visit Category Date Time Status Acyclovir [Zovirax] Med 04/10/19 10:00 Active 400 mg PO QWEEK Levothyroxine [Synthroid] Med 04/09/19 06:00 Active 25 mcg PO DAILY@0600 Primary Care Provider: Gerry Pate DO Referring Provider:
--- NOTE | 2019-04-09 14:41 | PCM.CONS.PUL ---
Problem List (1) Pleural effusion due to CHF (congestive heart failure) Status: Acute (2) Nephrotic syndrome Status: Chronic (3) Amyloidosis Status: Chronic (4) Diastolic CHF, acute on chronic Status: Acute (5) Pericardial effusion Status: Acute (6) Essential (primary) hypertension Status: Chronic Reason for Consult Date of Consultation: 04/09/19 Reason for Consultation: Hypoxia History of Present Illness: The patient is a 68 year old M, with past medical history listed below, who presented with [facility] [place] on 04/08/2019 secondary to generalized weakness and frequent falls. Patient reportedly has an underlying history of amyloidosis and is receiving chemotherapy. Patient had reportedly suffered a fall down stairs earlier in the day, was evaluated in the ER and felt safe for discharge home. However, throughout the day patient reported being more unsteady on his feet and had another fall. Patient did have to change his baseline supplemental oxygen from 2 L to 4 L. It is unclear if patient had any significant worsening in his baseline edema. In the ER, patient was noted to be tachypneic with increased oxygen demand. EKG was relatively unremarkable. Chest x-ray showed a right-sided pleural effusion. Patient was given 80 mg of Lasix, aspirin and initiated on BiPAP therapy. Patient was then admitted to the floor for further evaluation. While on the floor, patient did have a thoracentesis with 2 L drained. Patient had a previous thoracentesis in December that was transudate of, so labs were not sent on the new fluid. Patient was continued on IV Lasix, but continued to require BiPAP rescue. Patient had significant respiratory distress overnight to prompt a discussion of CODE STATUS with POA. Patient also had a change in mental status requiring a sitter at the bedside. On my evaluation, patient was not able to provide much history other than the fact that I need a bone marrow. Patient did have good synchrony with BiPAP during my arrival, but tried to talk me into taking it off. Past Medical History Past Medical History (Chronic Problems): Chronic Problems (Last Updated 04/09/19 @ 08:12 by Verna Beltran MD) Nephrotic syndrome (Chronic) Amyloidosis (Chronic) Diastolic CHF (Chronic) Proteinuria (Chronic) CHF (congestive heart failure) (Chronic) Essential (primary) hypertension (Chronic) Medical History: Medical History (Last Updated 04/09/19 @ 08:12 by Verna Beltrna MD) Pericardial effusion (Acute) I31.3 Proteinuria (Chronic) R80.9 CHF (congestive heart failure) (Chronic) I50.9 Essential (primary) hypertension (Chronic) I10 Allergies No Known Allergies Allergy (Verified 04/07/19 16:47) Home Medications: Ambulatory Orders Medication Instructions Recorded Acyclovir 400 mg PO QWEEK 03/03/19 Doxycycline Hyclate 100 mg PO DAILY 03/03/19 Levothyroxine Sodium 25 mcg PO DAILY@0600 03/03/19 Furosemide 40 mg PO BID #120 tab 03/05/19 Potassium Chloride [K-Dur] 40 meq PO DAILY 04/07/19 Lisinopril 2.5 mg PO DAILY 04/08/19 Metoprolol(XL)Succ [Toprol Xl 50 mg PO DAILY 04/08/19 (Beta Zak)] Surgical History: Surgical History (Last Reviewed 03/03/19 @ 11:10 by Yimi Castro MD) History of open reduction and internal fixation (ORIF) procedure Z98.890 left foot Surgical History: no surgical history Lives: Spouse/ Significant Other Smoking Status: Former smoker Tobacco Use: Cigarettes - *Family History Maternal History Items: - - Mother patient unsure of the cause Paternal History Items: - - Patient not sure of father's cause of Review of Systems Unable to obtain accurate/complete ROS d/t: See HPI Patient Problems: Active and Suspected Problems (Last Updated 04/09/19 @ 08:12 by Verna Beltran MD) Pleural effusion due to CHF (congestive heart failure) (Acute) Objective: Echocardiogram completed during this hospitalization showed moderate concentric LVH, diastolic dysfunction and moderate left-sided pleural effusion. Trivial pericardial effusion without signs of cardiac tamponade. Patient's chest x-ray showed a large right-sided pleural effusion that was minimally improved following thoracentesis - Physical Exam Vitals/I&O's: Vital Signs Temp Pulse Resp BP Pulse Ox 37.0 C 93 18 102/67 97 04/09/19 14:00 04/09/19 14:00 04/09/19 14:00 04/09/19 14:00 04/09/19 14:00 Oxygen Flow Rate (L/min) [4] 4 Oxygen Flow Rate (L/min) [3] 4 Oxygen Flow Rate (L/min) [2] 4 Oxygen Flow Rate (L/min) [1 ( 4 Initial Baseline)] Oxygen Flow Rate (L/min) 4 Oxygen Delivery Method [4] Nasal Cannula Oxygen Delivery Method [3] Nasal Cannula Oxygen Delivery Method [2] Nasal Cannula Oxygen Delivery Method [1 ( Nasal Cannula Initial Baseline)] Oxygen Delivery Method Nasal Cannula Weight: 99 kg Body Mass Index (BMI) 32.1 Intake and Output for Last 24 Hours 04/07/19 04/08/19 04/09/19 23:59 23:59 23:59 Intake Total 717 / 717 237 / 237 Output Total 2425 / 2425 650 / 650 Balance -1708 / -1708 -413 / -413 General: Alert, Confused, Disoriented, - - Mild respiratory distress. HEENT: Atraumatic, PERRLA, EOMI, Normocephalic, - - Scleral injection without icterus Oral: Moist Mucosa, No Gingival or Mucosal Lesions/ Ulcerations Neck: Supple, No Nodes, Trachea Midline, JVD, Right Lungs: No rhonchi, No wheeze, Diminished - Right base, Rales, - - Slightly decreased expansion on the right Cardiovascular: Regular rate, Regular Rhythm, Normal S1, Normal S2, No murmurs, No rub noted, No Gallop Abdomen: Bowel Sounds Present, Soft, Non Tender, Non-Distended Extremities: No clubbing, No cyanosis, Edema - Bilateral lower extremities Skin: No rashes, No breakdown Musculoskeletal: No Tenderness to Palpation of Joints or Extremities Lymphatic: No Cervical, Supraclavicular, or Inguinal Adenopathy Neurological: Cranial nerves II-XII grossly intact, Neuro grossly intact, Motor Exam 5/5 strength throughout Psych/Mental Status: Impulsive, Restless Laboratory Results 04/08/19 22:36: Specimen Type ART, Sample Site R RADIAL, pH 7.34 L, Bicarbonate Actual 51.0 H, POC Total CO2 > 50, Base Excess 25 H, O2 Saturation 98, ABG pCO2 93.3 H*, ABG pO2 112 H, Danielito Test POS, O2 Delivery Device Nasal Can, Liter Flow 6.0, Blood Gas Notified Whom LILIANA FOWLER, Blood Gas Notified Time 223504/09/19 05:36: WBC 6.6, RBC 2.99 L, Hgb 9.5 L, Hct 30.5 L, MCV 102.0 H, MCH 31.8, MCHC 31.1 L, RDW Std Deviation 50.7 H, RDW Coeff of Babita 13.7, Plt Count 95 L, MPV 12.2 H, Immature Gran % (Auto) 0.200, Neut % (Auto) 87.4 H, Lymph % (Auto) 8.5 L, Davis % (Auto) 3.6, Eos % (Auto) 0.0, Baso % (Auto) 0.3, Absolute Neuts (auto) 5.8, Absolute Lymphs (auto) 0.56 L, Nucleated RBC % 0, Differential Comment SCANNED 04/09/19 05:36: Sodium 145, Potassium 4.5, Chloride 99, Carbon Dioxide > 45.0 H*, Anion Gap TNP, BUN 33 H, Creatinine 1.12, Estim Creat Clear Calc 63.13, Est GFR (MDRD) Af Amer 84, Est GFR (MDRD) Non-Af 69, BUN/Creatinine Ratio 29.5 H, Glucose 125 H, Calcium 8.3 L Current Medications Acetaminophen (Tylenol) 650 mg PO Q6H PRN PRN PRN Reason: Pain Score 1-10/Temp > 100.7 F Acyclovir (Zovirax) 400 mg PO QWEEK [facility] Furosemide (Lasix) 40 mg IV BID@1000,1800 [facility] Last Admin: 04/09/19 09:08 Dose: 40 mg Documented by: Glucagon () 1 mg IM .X1 PRN PRN Reason: Hypoglycemia Guaifenesin (Robitussin) 20 ml PO Q4H PRN PRN PRN Reason: COUGH Heparin Sodium (Beef Lung) () 50 units IV UD PRN PRN Reason: Port-a-Cath (VAD)Heparin Flush Heparin Sodium (Porcine) (Heparin Na) 5,000 unit SC Q8 [facility] Last Admin: 04/09/19 13:47 Dose: 5,000 unit Documented by: Dextrose (Dextrose 10%-Water) 250 mls @ 999 mls/hr IV .Q16M PRN; Protocol PRN Reason: HYPOGLYCEMIA Levothyroxine Sodium (Synthroid) 25 mcg PO DAILY@0600 [facility] Last Admin: 04/09/19 05:33 Dose: 25 mcg Documented by: Magnesium Hydroxide (Milk Of Magnesia) 30 ml PO DAILY PRN PRN PRN Reason: Constipation Metoprolol Succinate (Toprol Xl (Beta Zak)) 50 mg PO DAILY [facility] Last Admin: 04/09/19 09:08 Dose: 50 mg Documented by: Nitroglycerin (Nitrostat) 0.4 mg SUBLINGUAL Q5M PRN PRN Reason: CARDIAC/CHEST PAIN Ondansetron HCl (Zofran) 4 mg IV Q8H PRN PRN PRN Reason: NAUSEA/VOMITING Sodium Chloride () 10 - 40 ml IV UD PRN PRN Reason: Port-a-Cath (VAD) Flush Last Admin: 04/09/19 05:35 Dose: 30 ml Documented by: Sodium Chloride (0.9% Nacl (Sterile) Posiflush) 10 - 40 ml IV UD PRN PRN Reason: Port access or dressing change Clinical Impression(s) from Imaging Studies Chest X-Ray 04/08/19 22:40 IMPRESSION: 1. Recent right thoracentesis. No pneumothorax. 2. Right pleural effusion has reaccumulated and is now moderate to large in size. Secondary right basilar atelectatic changes. 3. Small left pleural effusion and left basilar atelectasis without significant change. at 2308 Reported and signed by: Lele Martinez MD Electronically Signed: Lele Martinez, at 23:07 EST Tel , Service support , Chest X-Ray 04/09/19 05:55 IMPRESSION: Progressive pleural parenchymal changes at the right lung base. Electronically Signed: Rory Rosa, at 8:11 EST , Service support , Assessment/Plan All Active Problems (Last Updated 04/09/19 @ 08:12 by Verna Beltran MD) Pleural effusion due to CHF (congestive heart failure) (Acute) Diastolic CHF, acute on chronic (Acute) Pericardial effusion (Acute) RECOMMENDATIONS: 1. Continue with diuresis 2. Could consider repeat thoracentesis 3. Wean oxygen as tolerated 4. Encourage pulmonary toileting with Acapella and incentive spirometer 5. BiPAP with sleep and rescue during the day IMPRESSIONS: 1. Acute on chronic combined respiratory failure secondary to acute on chronic diastolic CHF Patient with significant thoracentesis with some improvement in right-sided findings. Patient continues to require BiPAP rescue and has significant residual findings in the right base. Clinical suspicion for residual pleural effusion. Patient did have kai-colored fluid noted on thoracentesis, so anticipate transudative etiology even though labs were not sent. Patient would have multiple reasons for transudate including nephrotic syndrome and diastolic congestive heart failure. Since renal function appears to be tolerating diuresis now, so reasonable to continue with this course until renal function limits options. Unclear on whether a Pleurx catheter would be indicated given last thoracentesis was in December. Cannot exclude progression of disease leading to indication 2. Amyloidosis Oncology following with the patient. Amyloidosis can affect the lungs, but typically it is from a secondary cause such as nephrotic syndrome and congestive heart failure. Patient could have a CT once pleural effusion is resolved for evaluation of lung parenchyma, but it would likely not change the overall course. Patient may benefit from pulmonary function testing once he is back to his baseline, but defer to primary service. 3. Nephrotic syndrome/hypothyroidism/hypertension/metabolic encephalopathy Complicates care, management, recovery and prognosis. Oncology has been consulted. Okay to continue with baseline medications. Suggest delirium protocol. Avoid benzodiazepines. Consider Haldol as needed Code Visit Inpatient E&M: 94750 Init Hosp L3
[2019-04-10] VITALS (21 sets, daily range): BP systolic 85–125; BP diastolic 46–89; PULSE 81–140; RESP 12–44; TEMP 36.4–36.9; O2SAT 90–981
--- NOTE | 2019-04-10 03:00 | NURSING ---
Keeping patient NPO starting around 00:30 on 04/10/2019 in case pt has Pleurx cath placed or repeat thoracentesis today.
[2019-04-10] MEDS: Levothyroxine 25 MCG TABLET PO (05:41)
--- NOTE | 2019-04-10 05:48 | NURSING ---
Bipap taken off. Pt placed on 3L nasal cannula. Pt satting well. Supplemental oxygen decreased to 2L nasal cannula.
[2019-04-10] MEDS: 0.9% Saline Lock 10 ML Syringe IV ×5 (06:32→21:17)
[2019-04-10 06:49] LABS: Absolute Lymphocyte Count 0.86 X10^3/uL (0.83-4.51); Absolute Neutrophil Count 5.5 X10^3/uL (2.0-7.7); Basophil# 0.03 X10^3/uL; Basophil% 0.4 % (0-1); Eosinophil# 0.05 X10^3/uL; Eosinophils% 0.7 % (0-5); Hematocrit 33.9 % (40-54); Hemoglobin 10.2 g/dL (13.0-16.5); Lymphocyte # 0.86 X10^3/ul (4.0); Lymphocyte % 12.7 % (19-41); Mean Corp Hgb Conc 30.1 g/dL (32-36); Mean Corpuscular Hgb 31.4 pg (27.0-32.0); Mean Corpuscular Volume 104.3 fL (80-94); Monocyte# 0.33 X10^3/uL; Monocyte% 4.9 % (0-10); NRBC Flagged by Analyzer 0 % (0-5); Neutrophil # 5.46 X10^3/uL (2.7-7.7); Neutrophil % 80.9 % (47-70); POSITIVE COUNT YES; Platelet Count 98 K/mm3 (150-450); RBC Distribution Width CV 13.7 % (11.6-14.6); Red Blood Count 3.25 M/mm3 (4.6-6.2); White Blood Count 6.8 K/mm3 (4.4-11.0)
--- NOTE | 2019-04-10 06:53 | NURSING ---
Pt placed back on 40% bipap at this time d/t increased respiratory rate.
[2019-04-10 07:12] LABS: BUN 38 mg/dL (7-18); BUN/Creat Ratio 32.8 RATIO (10-20); Calcium,Total 8.6 mg/dL (8.5-10.1); Carbon Dioxide > 45.0 mmol/L (21.0-32.0); Chloride 99 mmol/L (98-107); Creatinine, Serum 1.16 mg/dL (0.70-1.30); EST Glomerular Filtration Rate 67 mL/min (>60); Est Glom Filt Rate - Afr Amer 80 mL/min (>60); Estimated Creatinine Clearance 60.95 ml/min; Glucose 92 mg/dL (74-106); Magnesium 2.2 mg/dL (1.6-2.6); Phosphorus 3.3 mg/dL (2.5-4.9); Potassium 4.3 mmol/L (3.5-5.1); Sodium Level 144 mmol/L (136-145)
--- NOTE | 2019-04-10 07:28 | NURSING ---
Pt respiratory rate re-checked on 40% bipap and was 27; but fluctuates.
--- NOTE | 2019-04-10 08:11 | RAD_ITS ---
STUDY: X-RAY CHEST REASON FOR EXAM: Male, 68 years old. DYSPNEA, ACUTE CHF TECHNIQUE: AP and lateral views of the chest. COMPARISON: Comparison is made with prior study dated April 09, 2019. FINDINGS: A right-sided central catheter is seen with the tip in the right atrium. EKG electrodes are seen. Since prior study, there has been improved aeration of both lungs. Decreased right pleural effusion. Persistent infiltration in the lung bases as well as in the right middle lobe and upper lobe. There is moderate cardiac enlargement. Normal mediastinum and eric. Normal visualized pulmonary arteries. There is atherosclerotic tortuosity of the aortic arch and descending thoracic aorta. There are diffuse degenerative changes of the visualized thoracic spine. Normal visualized ribs, clavicles, and shoulders. There is no demonstrated abnormality of the visualized soft tissue structures of the upper abdomen. RAD/Chest PA and Lateral IMPRESSION: Improved aeration of both lungs with decreased right pleural effusion. Persistent bilateral infiltrates. Electronically Signed: Rory Rosa, at 8:39 EST , Service support ,
[2019-04-10] MEDS: Metoprolol(XL)Succ 50 MG Tablet PO (08:23)
[2019-04-10] MEDS: Acyclovir 200 MG Capsule 400 MG PO (08:23)
[2019-04-10] MEDS: Furosemide 40 MG/4 ML Vial IV ×3 (08:23→21:25)
--- NOTE | 2019-04-10 08:31 | US_ITS ---
paracentesis. PROCEDURE: ULTRASOUND GUIDED THORACENTESIS. DATE: April 10, 2019. INDICATION: Male, 68 years old. Right pleural effusion. PHYSICIAN: Rory Rosa M.D. PROCEDURE: The risks, benefits, and alternatives to the procedure were explained to the patient. The specific risks of bleeding, infection, and pneumothorax requiring chest tube insertion were discussed and accepted. Written informed consent was obtained. Ultrasonographic evaluation of the right lower pleural space was carried out. An adequate pocket was identified. The patient was placed in the sitting, upright position. The overlying skin was prepped and draped in sterile fashion. 1% lidocaine was administered subcutaneously for local anesthesia. Under ultrasound guidance, a 5 [place]amanian thoracentesis needle/catheter system was advanced into the right posterior lower pleural fluid collection. Approximately 2050 mL of kai-colored fluid was drained. The catheter was removed, and a sterile dressing was applied. The patient tolerated the procedure well. A chest x-ray was ordered. US/Thoracentesis W US IMPRESSION: Ultrasound-guided right thoracentesis. Electronically Signed: Rory Rosa, at 14:13 EST , Service support ,
--- NOTE | 2019-04-10 08:36 | PN_ITS ---
Patient Problems: Active and Suspected Problems (Last Updated 04/09/19 @ 08:12 by Verna Beltran MD) Pleural effusion due to CHF (congestive heart failure) (Acute) Subjective: Chief complaint: Follow-up after admission for acute on chronic hypoxic respiratory failure, rapidly accumulating right pleural effusion and probable a cute on chronic diastolic CHF. Patient seen and examined. No acute events overnight. Patient mentioned that his breathing is okay although he remained on BiPAP. Nursing staff reported that his pulse ox came down to 40s percent on nasal cannula. Patient denies any worsening shortness of breath. No chest pain or palpitation. Apart from hypoxia and being on BiPAP with tachypnea, other vital signs are stable. - Physical Exam Vitals/I&O's: Vital Signs Temp Pulse Resp BP Pulse Ox 97.8 F 92 26 H 111/64 99 04/10/19 06:49 04/10/19 08:23 04/10/19 07:50 04/10/19 06:49 04/10/19 07:50 Oxygen Flow Rate (L/min) [4] 4 Oxygen Flow Rate (L/min) [3] 4 Oxygen Flow Rate (L/min) [2] 4 Oxygen Flow Rate (L/min) [1 ( 4 Initial Baseline)] Oxygen Flow Rate (L/min) 2 Oxygen Delivery Method [4] Nasal Cannula Oxygen Delivery Method [3] Nasal Cannula Oxygen Delivery Method [2] Nasal Cannula Oxygen Delivery Method [1 ( Nasal Cannula Initial Baseline)] Oxygen Delivery Method Nasal Cannula Weight: 214 lb 15.211 oz Body Mass Index (BMI) 32.1 Intake and Output for Last 24 Hours 04/08/19 04/09/19 04/10/19 23:59 23:59 23:59 Intake Total 717 / 717 574 / 574 30 / 30 Output Total 2425 / 2425 1050 / 1050 200 / 200 Balance -1708 / -1708 -476 / -476 -170 / -170 General: Alert, Oriented x3, Cooperative, - - Mildly short of breath. HEENT: Atraumatic, PERRLA, EOMI, Normocephalic Oral: Moist Mucosa, No Gingival or Mucosal Lesions/ Ulcerations Neck: Supple, No JVD, Negative Carotid Bruits, Trachea Midline, Thyroid Normal Size and Texture Lungs: No wheeze, No rales, Diminished, Rhonchi, Short of Breath, - - Markedly decreased sounds on the right base, minimally on the left base, scattered rhonchi. Cardiovascular: Regular rate, Regular Rhythm, Normal S1, Normal S2, PMI Normal Abdomen: Bowel Sounds Present, Soft, Non Tender, Non-Distended, No Hepato- splenomegaly Extremities: No clubbing, No cyanosis, Edema Skin: No rashes, No breakdown Lymphatic: No Cervical, Supraclavicular, or Inguinal Adenopathy Neurological: Cranial nerves II-XII grossly intact, Neuro grossly intact Psych/Mental Status: Normal Affect, Appropriate, Alert and oriented to time, place, person, mood and affect Laboratory Results 04/10/19 06:30: WBC 6.8, RBC 3.25 L, Hgb 10.2 L, Hct 33.9 L, MCV 104.3 H, MCH 31.4, MCHC 30.1 L, RDW Std Deviation 53.0 H, RDW Coeff of Babita 13.7, Plt Count 98 L, MPV 12.0, Immature Gran % (Auto) 0.400, Neut % (Auto) 80.9 H, Lymph % (Auto) 12.7 L, Miller % (Auto) 4.9, Eos % (Auto) 0.7, Baso % (Auto) 0.4, Absolute Neuts (auto) 5.5, Absolute Lymphs (auto) 0.86, Nucleated RBC % 0 04/10/19 06:30: Sodium 144, Potassium 4.3, Chloride 99, Carbon Dioxide > 45.0 H* , Anion Gap TNP, BUN 38 H, Creatinine 1.16, Estim Creat Clear Calc 60.95, Est GFR (MDRD) Af Amer 80, Est GFR (MDRD) Non-Af 67, BUN/Creatinine Ratio 32.8 H, Glucose 92, Calcium 8.6, Phosphorus 3.3, Magnesium 2.2 Current Medications Acetaminophen (Tylenol) 650 mg PO Q6H PRN PRN PRN Reason: Pain Score 1-10/Temp > 100.7 F Acyclovir (Zovirax) 400 mg PO QWEEK [facility] Last Admin: 04/10/19 08:23 Dose: 400 mg Documented by: Furosemide (Lasix) 40 mg IV BID@1000,1800 [facility] Last Admin: 01/10/20 08:23 Dose: 40 mg Documented by: Glucagon () 1 mg IM .X1 PRN PRN Reason: Hypoglycemia Guaifenesin (Robitussin) 20 ml PO Q4H PRN PRN PRN Reason: COUGH Heparin Sodium (Beef Lung) () 50 units IV UD PRN PRN Reason: Port-a-Cath (VAD)Heparin Flush Dextrose (Dextrose 10%-Water) 250 mls @ 999 mls/hr IV .Q16M PRN; Protocol PRN Reason: HYPOGLYCEMIA Levothyroxine Sodium (Synthroid) 25 mcg PO DAILY@0600 [facility] Last Admin: 04/10/19 05:41 Dose: 25 mcg Documented by: Magnesium Hydroxide (Milk Of Magnesia) 30 ml PO DAILY PRN PRN PRN Reason: Constipation Metoprolol Succinate (Toprol Xl (Beta Zak)) 50 mg PO DAILY [facility] Last Admin: 04/10/19 08:23 Dose: 50 mg Documented by: Nitroglycerin (Nitrostat) 0.4 mg SUBLINGUAL Q5M PRN PRN Reason: CARDIAC/CHEST PAIN Ondansetron HCl (Zofran) 4 mg IV Q8H PRN PRN PRN Reason: NAUSEA/VOMITING Sodium Chloride () 10 - 40 ml IV UD PRN PRN Reason: Port-a-Cath (VAD) Flush Last Admin: 04/10/19 08:27 Dose: 20 ml Documented by: Sodium Chloride (0.9% Nacl (Sterile) Posiflush) 10 - 40 ml IV UD PRN PRN Reason: Port access or dressing change Medical Necessity - Tobacco Use Smoking Status: Former smoker Tobacco Use: Cigarettes Assessment/Plan All Active Problems (Last Updated 04/09/19 @ 08:12 by Verna Beltran MD) Pleural effusion due to CHF (congestive heart failure) (Acute) Diastolic CHF, acute on chronic (Acute) Pericardial effusion (Acute) This is a 68 years old male patient presented to the emergency room because of worsening shortness of breath and weakness, found to have increasing right pleural effusion complicated by acute on chronic hypercapnic and hypoxic re spiratory failure and also found to have probable acute on chronic diastolic CHF. #1 acute on chronic hypercapnic and hypoxic respiratory failure: Secondary to recurrent pleural effusions as well as probable acute CHF. Status post thoracentesis and he has been on IV Lasix. Repeat chest x-ray revealed recurrent pleural effusion on the right side. He remained on BiPAP, pulse ox dropped down significantly on nasal cannula. 2D echocardiogram revealed stage I diastolic dysfunction, trivial to small pericardial effusion, global scintillating left ventricle consistent with amyloidosis, no mention of ejection fraction. Pulmonology on the case. Plan to increase Lasix to 40 mg every 8 hours, patient may need repeat thoracentesis on the right side. #2 recurrent right pleural effusion: Status post thoracentesis on April 08, 2018. Repeat chest x-ray revealed recurrent pleural effusion. Patient had thoracentesis back on December,, effusion seemed to be transudative. Pulmonology on the case. Patient may need repeat thoracentesis and placement of Pleurx catheter. Will discuss with pulmonology. #3 probable acute on chronic diastolic CHF: Remained IV Lasix, and he is on metoprolol. Lisinopril held. 2D echocardiogram reviewed as above. His kidney function is stable. Cardiology consulted based on Dr. Ann recommendations. #4 hypertension: Blood pressure stable, continue metoprolol. Lisinopril on hold. #5 amyloidosis: Currently on treatment by oncology, oncology consulted. #6 hypothyroidism: Continue levothyroxine. #7 nephrotic syndrome with proteinuria: Secondary to amyloidosis. Serum protein and albumin are low. Kidney function is stable. Nephrology consulted. #8 DVT prophylaxis: Subcu heparin. This note was generated with [employer] dictation software. It may contain incorrect words, spelling, and punctuation that were not noted in checking the note before signing. Code Visit Inpatient E&M: 58636 Subs Hosp L2
--- NOTE | 2019-04-10 09:47 | PCM.PN.PUL ---
Patient Problems: Active and Suspected Problems (Last Updated 04/09/19 @ 08:12 by Verna Beltran MD) Pleural effusion due to CHF (congestive heart failure) (Acute) Subjective: Patient was significant respiratory distress this morning requiring BiPAP rescue. Patient had improved by time I had evaluated the patient and was sleeping on BiPAP therapy. Patient did have a chest x-ray following the acute events. Objective: Chest x-ray was personally reviewed and shows significant residual right pleural effusion. - Physical Exam Vitals/I&O's: Vital Signs Temp Pulse Resp BP Pulse Ox 36.4 C L 86 24 H 110/76 99 04/10/19 08:54 04/10/19 08:54 04/10/19 08:54 04/10/19 08:54 04/10/19 08:54 Oxygen Flow Rate (L/min) [4] 4 Oxygen Flow Rate (L/min) [3] 4 Oxygen Flow Rate (L/min) [2] 4 Oxygen Flow Rate (L/min) [1 ( 4 Initial Baseline)] Oxygen Flow Rate (L/min) 2 Oxygen Delivery Method [4] Nasal Cannula Oxygen Delivery Method [3] Nasal Cannula Oxygen Delivery Method [2] Nasal Cannula Oxygen Delivery Method [1 ( Nasal Cannula Initial Baseline)] Oxygen Delivery Method Bi-pap Weight: 97.5 kg Body Mass Index (BMI) 32.1 Intake and Output for Last 24 Hours 04/08/19 04/09/19 04/10/19 23:59 23:59 23:59 Intake Total 717 / 717 574 / 574 30 / 30 Output Total 2425 / 2425 1050 / 1050 200 / 200 Balance -1708 / -1708 -476 / -476 -170 / -170 General: - - Resting comfortably on BiPAP. Does open eyes to voice, but goes back to sleep quickly. Good BiPAP synchrony. HEENT: Atraumatic, PERRLA, EOMI, Normocephalic, - - No scleral icterus or injection noted Oral: No Gingival or Mucosal Lesions/ Ulcerations, Dry Mucosa Neck: Supple, No Nodes, Trachea Midline, - - Difficult to assess JVD secondary to BiPAP Lungs: No rhonchi, No wheeze, No rales, Diminished - Right base greater than left, - - Fair effort. Cardiovascular: Normal S1, Normal S2, No murmurs, No rub noted, No Gallop, Tachycardic Abdomen: Bowel Sounds Present, Soft, Non Tender, Non-Distended Extremities: No cyanosis, Capillary Refill Less than 3 Seconds, Edema Skin: No rashes, No breakdown Musculoskeletal: No Tenderness to Palpation of Joints or Extremities Lymphatic: No Cervical, Supraclavicular, or Inguinal Adenopathy Neurological: Cranial nerves II-XII grossly intact, Neuro grossly intact, Motor Exam 5/5 strength throughout Psych/Mental Status: Flat Affect Laboratory Results 04/10/19 06:30: WBC 6.8, RBC 3.25 L, Hgb 10.2 L, Hct 33.9 L, MCV 104.3 H, MCH 31.4, MCHC 30.1 L, RDW Std Deviation 53.0 H, RDW Coeff of Babita 13.7, Plt Count 98 L, MPV 12.0, Immature Gran % (Auto) 0.400, Neut % (Auto) 80.9 H, Lymph % (Auto) 12.7 L, [place] % (Auto) 4.9, Eos % (Auto) 0.7, Baso % (Auto) 0.4, Absolute Neuts (auto) 5.5, Absolute Lymphs (auto) 0.86, Nucleated RBC % 0 04/10/19 06:30: Sodium 144, Potassium 4.3, Chloride 99, Carbon Dioxide > 45.0 H*, Anion Gap TNP, BUN 38 H, Creatinine 1.16, Estim Creat Clear Calc 60.95, Est GFR (MDRD) Af Amer 80, Est GFR (MDRD) Non-Af 67, BUN/Creatinine Ratio 32.8 H, Glucose 92, Calcium 8.6, Phosphorus 3.3, Magnesium 2.2 Current Medications Acetaminophen (Tylenol) 650 mg PO Q6H PRN PRN PRN Reason: Pain Score 1-10/Temp > 100.7 F Acyclovir (Zovirax) 400 mg PO QWEEK [facility] Last Admin: 04/10/19 08:23 Dose: 400 mg Documented by: Furosemide (Lasix) 40 mg IV Q8 COLLEEN Glucagon () 1 mg IM .X1 PRN PRN Reason: Hypoglycemia Guaifenesin (Robitussin) 20 ml PO Q4H PRN PRN PRN Reason: COUGH Heparin Sodium (Beef Lung) () 50 units IV UD PRN PRN Reason: Port-a-Cath (VAD)Heparin Flush Dextrose (Dextrose 10%-Water) 250 mls @ 999 mls/hr IV .Q16M PRN; Protocol PRN Reason: HYPOGLYCEMIA Levothyroxine Sodium (Synthroid) 25 mcg PO DAILY@0600 [facility] Last Admin: 04/10/19 05:41 Dose: 25 mcg Documented by: Magnesium Hydroxide (Milk Of Magnesia) 30 ml PO DAILY PRN PRN PRN Reason: Constipation Metoprolol Succinate (Toprol Xl (Beta Zak)) 50 mg PO DAILY [facility] Last Admin: 04/10/19 08:23 Dose: 50 mg Documented by: Nitroglycerin (Nitrostat) 0.4 mg SUBLINGUAL Q5M PRN PRN Reason: CARDIAC/CHEST PAIN Ondansetron HCl (Zofran) 4 mg IV Q8H PRN PRN PRN Reason: NAUSEA/VOMITING Sodium Chloride () 10 - 40 ml IV UD PRN PRN Reason: Port-a-Cath (VAD) Flush Last Admin: 04/10/19 08:27 Dose: 20 ml Documented by: Sodium Chloride (0.9% Nacl (Sterile) Posiflush) 10 - 40 ml IV UD PRN PRN Reason: Port access or dressing change Clinical Impression(s) from Imaging Studies Chest X-Ray 04/10/19 08:11 IMPRESSION: Improved aeration of both lungs with decreased right pleural effusion. Persistent bilateral infiltrates. Electronically Signed: Rory Moe, at 8:39 EST , Service support , Medical Necessity - Tobacco Use Smoking Status: Former smoker Tobacco Use: Cigarettes Assessment/Plan All Active Problems (Last Updated 04/09/19 @ 08:12 by Verna Beltran MD) Pleural effusion due to CHF (congestive heart failure) (Acute) Diastolic CHF, acute on chronic (Acute) Pericardial effusion (Acute) RECOMMENDATIONS: 1. Continue with diuresis as tolerated 2. Order repeat therapeutic thoracentesis 3. Wean oxygen as tolerated 4. Encourage pulmonary toileting with Acapella and incentive spirometer 5. BiPAP with sleep and rescue during the day IMPRESSIONS: 1. Acute on chronic combined respiratory failure secondary to acute on chronic diastolic CHF Patient with significant thoracentesis with some improvement in right-sided findings on presentation. Patient continues to require BiPAP rescue and has significant residual findings in the right base. Repeat x-ray today shows significant right-sided pleural effusion. Clinical suspicion for residual fluid more than rapid accumulation. Patient is developing a contraction alkalosis, so would proceed with a repeat thoracentesis. Could continue with diuretic therapy as tolerated. Still with high clinical suspicion for transudate etiology, so no labs will be obtained. Patient is not having any leukocytosis or other constitutional symptoms to suggest parapneumonic effusion 2. Amyloidosis Oncology following with the patient. Amyloidosis can affect the lungs, but typically it is from a secondary cause such as nephrotic syndrome and congestive heart failure. Patient could have a CT once pleural effusion is resolved for evaluation of lung parenchyma, but it would likely not change the overall course. Patient may benefit from pulmonary function testing once he is back to his baseline, but defer to primary service. 3. Nephrotic syndrome/hypothyroidism/hypertension/metabolic encephalopathy Complicates care, management, recovery and prognosis. Oncology has been consulted. Okay to continue with baseline medications. Suggest delirium protocol. Avoid benzodiazepines. Consider Haldol as needed Code Visit Inpatient E&M: 86690 Subs Hosp L3
--- NOTE | 2019-04-10 09:58 | PCA ---
Spoke with Shilpi at apt call center. Cancelled apt with on 04/13 and she put a note in about pt going to SNF upon discharge since patient has other apts scheduled by family.
--- NOTE | 2019-04-10 10:21 | CON.PCM_ITS ---
<Helena Gordon M - Last Filed: 04/10/19 10:21> Problem List (1) Pleural effusion due to CHF (congestive heart failure) Status: Acute (2) Nephrotic syndrome Status: Chronic (3) Amyloidosis Status: Chronic (4) Diastolic CHF, acute on chronic Status: Acute (5) Essential (primary) hypertension Status: Chronic Reason for Consult Date of Consultation: 04/10/19 History of Present Illness: The patient is a 68 year old M that presented to the ER on 04/08/2019 with progressive SOB and frequent falls. He has a hx of nephotic syndrome/amyloidosis. In reviewing notes, it appears that his lisinopril was stopped d/t a cough. On admission he was noted to have proteinuria on , Bilateral pleural effusion. It was noted that he had significant weight gain. He was started on IV lasix. He did undergo a thoracentesis on 04/08, 2L of fluid was removed. Unfortunately his pleural effusion was noted to have reaccumulated today, there are plans for a second pleural effusion. To date he is down 6 lbs. He has remained on his Bipap, at home is is on 2-4l. It is noted that when he takes the Bipap off that his O2 drops with a saturation in to 40's. He is established with Dr. Crowder. History was mostly obtained through chart, it was difficult to obtain from p atient Past Medical History Allergies/Adverse Reactions: Allergies No Known Allergies Allergy (Verified 04/07/19 16:47) Home Medications: Ambulatory Orders Medication Instructions Recorded Acyclovir 400 mg PO QWEEK 03/03/19 Doxycycline Hyclate 100 mg PO DAILY 03/03/19 Levothyroxine Sodium 25 mcg PO DAILY@0600 03/03/19 Furosemide 40 mg PO BID #120 tab 03/05/19 Potassium Chloride [K-Dur] 40 meq PO DAILY 04/07/19 Lisinopril 2.5 mg PO DAILY 04/08/19 Metoprolol(XL)Succ [Toprol Xl 50 mg PO DAILY 04/08/19 (Beta Zak)] Past Medical History (Chronic Problems): Chronic Problems (Last Updated 04/09/19 @ 08:12 by Verna Beltran MD) Nephrotic syndrome (Chronic) Amyloidosis (Chronic) Diastolic CHF (Chronic) Proteinuria (Chronic) CHF (congestive heart failure) (Chronic) Essential (primary) hypertension (Chronic) Surgical History: no surgical history - *Family History Maternal History Items: - - Mother patient unsure of the cause Paternal History Items: - - Patient not sure of father's cause of Lives: Spouse/ Significant Other Smoking Status: Former smoker Tobacco Use: Cigarettes Objective: Vital Signs Temp Pulse Resp BP Pulse Ox 97.6 F L 86 24 H 110/76 99 04/10/19 08:54 04/10/19 08:54 04/10/19 08:54 04/10/19 08:54 04/10/19 08:54 Oxygen Flow Rate (L/min) [4] 4 Oxygen Flow Rate (L/min) [3] 4 Oxygen Flow Rate (L/min) [2] 4 Oxygen Flow Rate (L/min) [1 ( 4 Initial Baseline)] Oxygen Flow Rate (L/min) 2 Oxygen Delivery Method [4] Nasal Cannula Oxygen Delivery Method [3] Nasal Cannula Oxygen Delivery Method [2] Nasal Cannula Oxygen Delivery Method [1 ( Nasal Cannula Initial Baseline)] Oxygen Delivery Method Bi-pap Weight: 214 lb 15.211 oz Body Mass Index (BMI) 32.1 Intake and Output for Last 24 Hours 04/08/19 04/09/19 04/10/19 23:59 23:59 23:59 Intake Total 717 / 717 574 / 574 30 / 30 Output Total 2425 / 2425 1050 / 1050 200 / 200 Balance -1708 / -1708 -476 / -476 -170 / -170 General: Awake, Cooperative, Obese, - - on Bipap HEENT: Normocephalic Oral: Moist Mucosa Neck: Supple Lungs: Diminished Marcial Bases Cardiovascular: Regular Rhythm, Normal S1, Normal S2, No Murmurs Vascular: No Carotid Bruits, Normal Posterior Tibial Pulses Abdomen: Bowel Sounds Present, Soft, Non Tender Extremities: Bilateral Edema +2 Neurological: CN II-XII Intact Psych/Mental Status: Flat Affect 04/10/19 06:30: WBC 6.8, RBC 3.25 L, Hgb 10.2 L, Hct 33.9 L, MCV 104.3 H, MCH 31.4, MCHC 30.1 L, Plt Count 98 L, MPV 12.0, Immature Gran % (Auto) 0.400, Neut % (Auto) 80.9 H, Lymph % (Auto) 12.7 L, [place] % (Auto) 4.9, Eos % (Auto) 0.7, Baso % (Auto) 0.4, Absolute Neuts (auto) 5.5, Nucleated RBC % 0 04/10/19 06:30: Sodium 144, Potassium 4.3, Chloride 99, Carbon Dioxide > 45.0 H* , Anion Gap TNP, BUN 38 H, Creatinine 1.16, Est GFR (MDRD) Af Amer 80, Est GFR (MDRD) Non-Af 67, BUN/Creatinine Ratio 32.8 H, Glucose 92, Calcium 8.6, Phosphorus 3.3, Magnesium 2.2 Rhythm: EKG: ECHO:Moderate concentric left ventricular hypertrophy. Global scintillating LV consistent with amyloidosis. Stage 1 diastolic dysfunction. Trivial mitral valve insufficiency. Trivial tricuspid valve insufficiency. Unable to estimate RV systolic pressure due to insufficient tricuspid regurgitant envelope. Trivial to small pericardial effusion. Circumferential effusion. There are no echocardiographic indications of cardiac tamponade. At least moderate size left pleural effusion. Compared with echocardiogram dated 01/09/2019, no appreciable changes noted. Stress Test: Cardiac Cath: PCI: CT Surgery: Holter monitor: EPS: PPM: CXR: Chest CT Scan: Assessment/Plan 1. CHF: likely secondary to volume overload from proteinuria. Would recommend continuing diuresis with lasix. Would also recommend adding ARB as he had a cough while he was on Lisinopril. 2. Amyloidosis: Pt is following with oncology. Probable has cardiac involvement but echo findings, however EF is preserved. t has stage 1 diastolic dysfunction <Yovany Whitley - Last Filed: 04/10/19 14:53> Reason for Consult History of Present Illness: The patient is a 68 year old M [] Objective: Vital Signs Temp Pulse Resp BP Pulse Ox 97.8 F 87 16 85/57 L 93 04/10/19 14:24 04/10/19 14:24 04/10/19 14:24 04/10/19 14:24 04/10/19 14:24 Oxygen Flow Rate (L/min) [4] 2 Oxygen Flow Rate (L/min) [3] 2 Oxygen Flow Rate (L/min) [2] 2 Oxygen Flow Rate (L/min) [1 ( 2 Initial Baseline)] Oxygen Flow Rate (L/min) 2 Oxygen Delivery Method [4] Nasal Cannula Oxygen Delivery Method [3] Nasal Cannula Oxygen Delivery Method [2] Nasal Cannula Oxygen Delivery Method [1 ( Nasal Cannula Initial Baseline)] Oxygen Delivery Method Nasal Cannula Weight: 214 lb 15.211 oz Body Mass Index (BMI) 32.1 Intake and Output for Last 24 Hours 04/08/19 04/09/19 04/10/19 23:59 23:59 23:59 Intake Total 717 / 717 574 / 574 330 / 330 Output Total 2425 / 2425 1050 / 1050 600 / 600 Balance -1708 / -1708 -476 / -476 -270 / -270 04/10/19 06:30: WBC 6.8, RBC 3.25 L, Hgb 10.2 L, Hct 33.9 L, MCV 104.3 H, MCH 31.4, MCHC 30.1 L, Plt Count 98 L, MPV 12.0, Immature Gran % (Auto) 0.400, Neut % (Auto) 80.9 H, Lymph % (Auto) 12.7 L, [place] % (Auto) 4.9, Eos % (Auto) 0.7, Baso % (Auto) 0.4, Absolute Neuts (auto) 5.5, Nucleated RBC % 0 04/10/19 06:30: Sodium 144, Potassium 4.3, Chloride 99, Carbon Dioxide > 45.0 H* , Anion Gap TNP, BUN 38 H, Creatinine 1.16, Est GFR (MDRD) Af Amer 80, Est GFR (MDRD) Non-Af 67, BUN/Creatinine Ratio 32.8 H, Glucose 92, Calcium 8.6, Phosphorus 3.3, Magnesium 2.2 Rhythm: EKG: ECHO: Stress Test: Cardiac Cath: PCI: CT Surgery: Holter monitor: EPS: PPM: CXR: Chest CT Scan: Assessment/Plan Patient was seen, evaluated and discussed with BUCKY Ruffin. Agree with her note. Continue diuresis. If required okay to decrease Lasix to twice daily. Would recommend adding ARB as mentioned.
--- NOTE | 2019-04-10 13:30 | RAD_ITS ---
STUDY: X-RAY CHEST REASON FOR EXAM: Male, 68 years old. Post thoracentesis -- no chest complaints TECHNIQUE: AP inspiration expiration views. COMPARISON: Comparison is made with prior study done earlier today. FINDINGS: The patient is status post right thoracentesis. The pleural effusion has cleared. Residual infiltration at the right lung base as well as in the right upper lobe. Stable pleural parenchymal changes at the left lung base. No evidence of pneumothorax. RAD/Chest Insp/Exp 2 View IMPRESSION: Status post right thoracentesis. There is no evidence of pneumothorax. Electronically Signed: Rory Rosa, at 14:50 EST , Service support ,
--- NOTE | 2019-04-10 14:10 | PCM.CONS.R ---
Consultation - Renal 04/10/19 PCP/ Referring MD: Requesting physician: [] Primary care physician: Gerry Pate DO Reason for Consultation:: amyloidosis - History of Present Illness History of Present Illness: The patient is a 68 year old M who was seen on consult December 2018 when he was admitted for anasarca, pleural effusion and nephrotic proteinuria. He is admitted for frequent falls, weakness at home. He was seen by cardiology for CHF and possible amyloid heart disease in December. He had urine positive for bence isidro protein, 2.9g protein on 24h urine. He had kidney biopsy as outpt in December that showed lambda light chain deposition +congo stain consistent with AL amyloidosis. He was started on chemotherapy managed by Dr. Crowder oncology. He refused to follow up with me in the office, complaining that he was already seeing too many doctors. Creatinine 1.16 on 04/10/19 baseline creatinine 0.8. UA from 04/08/19 showed significant proteinuria 500mg/dl. He has metabolic alkalosis with respiratory acidosis, hypercapnea on ABG. CXR with bilateral pleural effusion R>L s/p thoracetesis x2 during current hospitalization. He continues to have anasarca on lasix. He is duresing well. Cardiology, oncology and pulmonary consulted. Currently denies SOB, nausea, vomiting, chest pain. Still with leg edema and pleural effusion on CXR. - Allergies Allergies: Allergies No Known Allergies Allergy (Verified 04/07/19 16:47) - Current Medications Current Medications: Current Medications Acetaminophen (Tylenol) 650 mg PO Q6H PRN PRN PRN Reason: Pain Score 1-10/Temp > 100.7 F Acyclovir (Zovirax) 400 mg PO QWEEK [facility] Last Admin: 04/10/19 08:23 Dose: 400 mg Documented by: Furosemide (Lasix) 40 mg IV Q8 [facility] Glucagon () 1 mg IM .X1 PRN PRN Reason: Hypoglycemia Guaifenesin (Robitussin) 20 ml PO Q4H PRN PRN PRN Reason: COUGH Heparin Sodium (Beef Lung) () 50 units IV UD PRN PRN Reason: Port-a-Cath (VAD)Heparin Flush Dextrose (Dextrose 10%-Water) 250 mls @ 999 mls/hr IV .Q16M PRN; Protocol PRN Reason: HYPOGLYCEMIA Levothyroxine Sodium (Synthroid) 25 mcg PO DAILY@0600 [facility] Last Admin: 04/10/19 05:41 Dose: 25 mcg Documented by: Losartan Potassium (Cozaar) 25 mg PO DAILY [facility] Magnesium Hydroxide (Milk Of Magnesia) 30 ml PO DAILY PRN PRN PRN Reason: Constipation Metoprolol Succinate (Toprol Xl (Beta Zak)) 50 mg PO DAILY [facility] Last Admin: 04/10/19 08:23 Dose: 50 mg Documented by: Nitroglycerin (Nitrostat) 0.4 mg SUBLINGUAL Q5M PRN PRN Reason: CARDIAC/CHEST PAIN Ondansetron HCl (Zofran) 4 mg IV Q8H PRN PRN PRN Reason: NAUSEA/VOMITING Sodium Chloride () 10 - 40 ml IV UD PRN PRN Reason: Port-a-Cath (VAD) Flush Last Admin: 04/10/19 08:27 Dose: 20 ml Documented by: Sodium Chloride (0.9% Nacl (Sterile) Posiflush) 10 - 40 ml IV UD PRN PRN Reason: Port access or dressing change - Past Medical History Past Medical History (Chronic Problems): Chronic Problems (Last Updated 04/09/19 @ 08:12 by Verna Beltran MD) Nephrotic syndrome (Chronic) Amyloidosis (Chronic) Diastolic CHF (Chronic) Proteinuria (Chronic) CHF (congestive heart failure) (Chronic) Essential (primary) hypertension (Chronic) - Past Surgical History Surgical History: no surgical history - Social History Smoking Status: Former smoker - Family History Maternal History Items: - - Mother patient unsure of the cause Paternal History Items: - - Patient not sure of father's cause of Review of Systems Constitutional: Reports: Weakness. Denies: Anorexia, Chills, Fever Cardiovascular: Reports: Orthopnea. Denies: Chest Pain Respiratory: Reports: Shortness of Breath Gastrointestinal: Denies: Nausea, Vomiting Genitourinary: Denies: Dysuria Musculoskeletal: Reports: - - edema Skin: Denies: Rash Hematologic/ Lymphatic: Reports: Anemia Patient Problems: Active and Suspected Problems (Last Updated 04/09/19 @ 08:12 by Verna Beltran MD) Pleural effusion due to CHF (congestive heart failure) (Acute) - Physical Exam Vitals/I&O's: Vital Signs Temp Pulse Resp BP Pulse Ox 97.9 F 88 16 85/49 L 95 04/10/19 10:47 04/10/19 14:00 04/10/19 14:00 04/10/19 14:00 04/10/19 11:45 Oxygen Flow Rate (L/min) [4] 2 Oxygen Flow Rate (L/min) [3] 2 Oxygen Flow Rate (L/min) [2] 2 Oxygen Flow Rate (L/min) [1 ( 2 Initial Baseline)] Oxygen Flow Rate (L/min) 2 Oxygen Delivery Method [4] Nasal Cannula Oxygen Delivery Method [3] Nasal Cannula Oxygen Delivery Method [2] Nasal Cannula Oxygen Delivery Method [1 ( Nasal Cannula Initial Baseline)] Oxygen Delivery Method Nasal Cannula Weight: 97.5 kg Body Mass Index (BMI) 32.1 Intake and Output for Last 24 Hours 04/08/19 04/09/19 04/10/19 23:59 23:59 23:59 Intake Total 717 / 717 574 / 574 330 / 330 Output Total 2425 / 2425 1050 / 1050 600 / 600 Balance -1708 / -1708 -476 / -476 -270 / -270 General: Alert, Oriented x3, Cooperative, No apparent distress Lungs: Rales - bases, - - portable oxygen Cardiovascular: Regular rate Abdomen: Bowel Sounds Present, Soft, Non Tender, Distended, Obese Extremities: Edema - 2+ pitting BLE Skin: No rashes Musculoskeletal: No Muscle Wasting Neurological: Cranial nerves II-XII grossly intact Psych/Mental Status: Normal Affect, Appropriate, Alert and oriented to time, place, person, mood and affect Laboratory Results 04/10/19 06:30: WBC 6.8, RBC 3.25 L, Hgb 10.2 L, Hct 33.9 L, MCV 104.3 H, MCH 31.4, MCHC 30.1 L, RDW Std Deviation 53.0 H, RDW Coeff of Babita 13.7, Plt Count 98 L, MPV 12.0, Immature Gran % (Auto) 0.400, Neut % (Auto) 80.9 H, Lymph % (Auto) 12.7 L, Morrill % (Auto) 4.9, Eos % (Auto) 0.7, Baso % (Auto) 0.4, Absolute Neuts (auto) 5.5, Absolute Lymphs (auto) 0.86, Nucleated RBC % 0 04/10/19 06:30: Sodium 144, Potassium 4.3, Chloride 99, Carbon Dioxide > 45.0 H*, Anion Gap TNP, BUN 38 H, Creatinine 1.16, Estim Creat Clear Calc 60.95, Est GFR (MDRD) Af Amer 80, Est GFR (MDRD) Non-Af 67, BUN/Creatinine Ratio 32.8 H, Glucose 92, Calcium 8.6, Phosphorus 3.3, Magnesium 2.2 04/10/19 06:37: B-Natriuretic Peptide Pending Clinical Impression(s) from Imaging Studies Brain CT 04/08/19 00:28 IMPRESSION: 1. Negative for intracranial hemorrhage or acute intracranial disease. 2. Mild cerebral and cerebellar atrophy. Individualized dose optimization techniques were used for this CT. at 0240 Reported and signed by: Lele Martinez MD Electronically Signed: Lele Martinez at 2:39 EST Tel , Service support , Chest X-Ray 04/08/19 00:28 IMPRESSION: 1. No significant change. 2. CHF with large right and small left pleural effusions. Secondary bibasilar passive atelectatic changes. at 0112 Reported and signed by: Lele Martinez MD Electronically Signed: Lele Martinez at 1:11 EST Tel , Service support , Cervical Spine CT 04/08/19 00:30 IMPRESSION: 1. No fracture or acute osseous abnormality. 2. Cervical spine multilevel degenerative changes. 3. CT exam partly limited by motion artifact. 4. Bilateral pleural effusions, larger on the right. Individualized dose optimization techniques were used for this CT. at 0252 Reported and signed by: Lele Martinez MD Electronically Signed: Lele Martinez at 2:51 EST Tel , Service support , Thoracentesis Ultrasound 04/08/19 10:04 IMPRESSION: Ultrasound-guided right thoracentesis. Electronically Signed: Rory Moe, at 13:56 EST , Service support , Chest X-Ray 04/08/19 13:30 IMPRESSION: Status post right thoracentesis. There is no evidence of pneumothorax. Electronically Signed: Rory Rosa, at 13:55 EST , Service support , Chest X-Ray 04/08/19 22:40 IMPRESSION: 1. Recent right thoracentesis. No pneumothorax. 2. Right pleural effusion has reaccumulated and is now moderate to large in size. Secondary right basilar atelectatic changes. 3. Small left pleural effusion and left basilar atelectasis without significant change. at 2308 Reported and signed by: Lele Martinez MD Electronically Signed: Lele Martinez, at 23:07 EST Tel , Service support , Chest X-Ray 04/09/19 05:55 IMPRESSION: Progressive pleural parenchymal changes at the right lung base. Electronically Signed: Rory Rosa, at 8:11 EST , Service support , Chest X-Ray 04/10/19 08:11 IMPRESSION: Improved aeration of both lungs with decreased right pleural effusion. Persistent bilateral infiltrates. Electronically Signed: Rory Rosa, at 8:39 EST , Service support , Thoracentesis Ultrasound 04/10/19 08:31 IMPRESSION: Ultrasound-guided right thoracentesis. Electronically Signed: Rory Rosa, at 14:13 EST , Service support , Current Medications Acetaminophen (Tylenol) 650 mg PO Q6H PRN PRN PRN Reason: Pain Score 1-10/Temp > 100.7 F Acyclovir (Zovirax) 400 mg PO QWEEK [facility] Last Admin: 04/10/19 08:23 Dose: 400 mg Documented by: Furosemide (Lasix) 40 mg IV Q8 [facility]LE[facility] Glucagon () 1 mg IM .X1 PRN PRN Reason: Hypoglycemia Guaifenesin (Robitussin) 20 ml PO Q4H PRN PRN PRN Reason: COUGH Heparin Sodium (Beef Lung) () 50 units IV UD PRN PRN Reason: Port-a-Cath (VAD)Heparin Flush Dextrose (Dextrose 10%-Water) 250 mls @ 999 mls/hr IV .Q16M PRN; Protocol PRN Reason: HYPOGLYCEMIA Levothyroxine Sodium (Synthroid) 25 mcg PO DAILY@0600 [facility] Last Admin: 04/10/19 05:41 Dose: 25 mcg Documented by: Losartan Potassium (Cozaar) 25 mg PO DAILY [facility] Magnesium Hydroxide (Milk Of Magnesia) 30 ml PO DAILY PRN PRN PRN Reason: Constipation Metoprolol Succinate (Toprol Xl (Beta Zak)) 50 mg PO DAILY [facility] Last Admin: 04/10/19 08:23 Dose: 50 mg Documented by: Nitroglycerin (Nitrostat) 0.4 mg SUBLINGUAL Q5M PRN PRN Reason: CARDIAC/CHEST PAIN Ondansetron HCl (Zofran) 4 mg IV Q8H PRN PRN PRN Reason: NAUSEA/VOMITING Sodium Chloride () 10 - 40 ml IV UD PRN PRN Reason: Port-a-Cath (VAD) Flush Last Admin: 04/10/19 08:27 Dose: 20 ml Documented by: Sodium Chloride (0.9% Nacl (Sterile) Posiflush) 10 - 40 ml IV UD PRN PRN Reason: Port access or dressing change Assessment/Plan All Active Problems (Last Updated 04/09/19 @ 08:12 by Verna Beltran MD) Pleural effusion due to CHF (congestive heart failure) (Acute) Diastolic CHF, acute on chronic (Acute) Pericardial effusion (Acute) 1. 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 Still with significant proteinuria on Ua. Check UPCR. 2. SOB, bilateral pleural effusion. Cardiology consulted 3. metabolic alkalosis with respiratory acidosis due to hypoperfusion state ordered BIPAP. Add iamox 250mg x1 today 4. Anasarca continue iv lasix, diamox for #3
--- NOTE | 2019-04-10 14:14 | CASEMGMT ---
SW spoke with patient. Introduced self and role at [facility]. SW told him about therapy recommending he go to a care home facility for rehab. He said he figured that is what he would have to do. CORY told him SW gave his significant other a list of facilities that are in network with his insurance. CORY told him SW will check back Saturday to see what facilities they would like SW to contact. Manuela BURGER
[2019-04-10] MEDS: AcetaZOLAMIDE 500 MG/10 ML Vial 250 MG IV (16:37)
--- NOTE | 2019-04-10 19:43 | NURSING ---
Pt states he is going to bed. Placed on bipap at this time.
[2019-04-10 22:29] LABS: Protein, Urine (Random) 102.2 mg/dL (<11.9)
[2019-04-11] VITALS (15 sets, daily range): BP systolic 93–113; BP diastolic 55–75; PULSE 77–92; RESP 12–45; TEMP 36.6–36.8; O2SAT 94–98
[2019-04-11] MEDS: 0.9% Saline Lock 10 ML Syringe IV ×5 (04:52→21:00)
[2019-04-11 05:25] LABS: Albumin, Serum 1.5 g/dL (3.2-5.0); BUN 38 mg/dL (7-18); Carbon Dioxide > 45.0 mmol/L (21.0-32.0); Chloride 95 mmol/L (98-107); Creatinine, Serum 1.15 mg/dL (0.70-1.30); EST Glomerular Filtration Rate 67 mL/min (>60); Est Glom Filt Rate - Afr Amer 81 mL/min (>60); Estimated Creatinine Clearance 61.48 ml/min; Glucose 119 mg/dL (74-106); Phosphorus 3.2 mg/dL (2.5-4.9); Potassium 3.6 mmol/L (3.5-5.1); Sodium Level 140 mmol/L (136-145)
[2019-04-11] MEDS: Furosemide 40 MG/4 ML Vial IV ×3 (06:21→21:00)
[2019-04-11] MEDS: Levothyroxine 25 MCG TABLET PO (06:29)
--- NOTE | 2019-04-11 08:29 | PN_ITS ---
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 Patient seen and examined. No acute events overnight. Today, he is feeling much better, shortness of breath significant improved and he thinks that he is back to his baseline. No cough or sputum production. This morning, he is on nasal cannula 2 L with pulse ox of 96%. Still slightly tachypneic, other vital signs are stable. - Physical Exam Vitals/I&O's: Vital Signs Temp Pulse Resp BP Pulse Ox 98.2 F 91 45 H 111/68 96 04/11/19 06:13 04/11/19 07:30 04/11/19 06:13 04/11/19 06:13 04/11/19 06:13 Oxygen Flow Rate (L/min) [4] 2 Oxygen Flow Rate (L/min) [3] 2 Oxygen Flow Rate (L/min) [2] 2 Oxygen Flow Rate (L/min) [1 ( 2 Initial Baseline)] Oxygen Flow Rate (L/min) 2 Oxygen Delivery Method [4] Nasal Cannula Oxygen Delivery Method [3] Nasal Cannula Oxygen Delivery Method [2] Nasal Cannula Oxygen Delivery Method [1 ( Nasal Cannula Initial Baseline)] Oxygen Delivery Method Nasal Cannula Weight: 211 lb 13.828 oz Body Mass Index (BMI) 32.1 Intake and Output for Last 24 Hours 04/09/19 04/10/19 04/11/19 23:59 23:59 23:59 Intake Total 574 / 574 1160 / 1160 494 / 494 Output Total 1050 / 1050 1700 / 1700 600 / 600 Balance -476 / -476 -540 / -540 -106 / -106 General: Alert, Oriented x3, Cooperative, - - Minimally short of breath. HEENT: Atraumatic, PERRLA, EOMI, Normocephalic Oral: Moist Mucosa, No Gingival or Mucosal Lesions/ Ulcerations Neck: Supple, No JVD, Negative Carotid Bruits, Trachea Midline, Thyroid Normal Size and Texture Lungs: No wheeze, No rales, Diminished, Rhonchi, - - Decubitus sounds at the bases, more on the right base, scattered rhonchi. Cardiovascular: Regular rate, Regular Rhythm, Normal S1, Normal S2, PMI Normal Abdomen: Bowel Sounds Present, Soft, Non Tender, Non-Distended, No Hepato- splenomegaly Extremities: No clubbing, No cyanosis, Edema Skin: No rashes, No breakdown Lymphatic: No Cervical, Supraclavicular, or Inguinal Adenopathy Neurological: Cranial nerves II-XII grossly intact, Neuro grossly intact Psych/Mental Status: Normal Affect, Appropriate, Alert and oriented to time, place, person, mood and affect Laboratory Results 04/10/19 06:37: B-Natriuretic Peptide 386.0 H 04/10/19 14:45: Urine Creatinine 103.00 04/10/19 14:45: U Random Total Protein 102.2 H 04/11/19 04:45: Sodium 140, Potassium 3.6, Chloride 95 L, Carbon Dioxide > 45.0 H*, BUN 38 H, Creatinine 1.15, Estim Creat Clear Calc 61.48, Est GFR (MDRD) Af Amer 81, Est GFR (MDRD) Non-Af 67, BUN/Creatinine Ratio 33.0 H, Glucose 119 H, Calcium 8.0 L, Phosphorus 3.2, Albumin 1.5 L Current Medications Acetaminophen (Tylenol) 650 mg PO Q6H PRN PRN PRN Reason: Pain Score 1-10/Temp > 100.7 F Acetazolamide (Diamox) 250 mg IV X1 ONE Stop: 04/11/19 09:01 Acyclovir (Zovirax) 400 mg PO QWEEK [facility] Last Admin: 04/10/19 08:23 Dose: 400 mg Documented by: Furosemide (Lasix) 40 mg IV Q8 [facility] Last Admin: 04/11/19 06:21 Dose: 40 mg Documented by: Glucagon () 1 mg IM .X1 PRN PRN Reason: Hypoglycemia Guaifenesin (Robitussin) 20 ml PO Q4H PRN PRN PRN Reason: COUGH Heparin Sodium (Beef Lung) () 50 units IV UD PRN PRN Reason: Port-a-Cath (VAD)Heparin Flush Dextrose (Dextrose 10%-Water) 250 mls @ 999 mls/hr IV .Q16M PRN; Protocol PRN Reason: HYPOGLYCEMIA Levothyroxine Sodium (Synthroid) 25 mcg PO DAILY@0600 [facility] Last Admin: 04/11/19 06:29 Dose: 25 mcg Documented by: Losartan Potassium (Cozaar) 25 mg PO DAILY [facility] Magnesium Hydroxide (Milk Of Magnesia) 30 ml PO DAILY PRN PRN PRN Reason: Constipation Metoprolol Succinate (Toprol Xl (Beta Zak)) 50 mg PO DAILY [facility] Last Admin: 04/10/19 08:23 Dose: 50 mg Documented by: Nitroglycerin (Nitrostat) 0.4 mg SUBLINGUAL Q5M PRN PRN Reason: CARDIAC/CHEST PAIN Ondansetron HCl (Zofran) 4 mg IV Q8H PRN PRN PRN Reason: NAUSEA/VOMITING Sodium Chloride () 10 - 40 ml IV UD PRN PRN Reason: Port-a-Cath (VAD) Flush Last Admin: 04/11/19 06:21 Dose: 20 ml Documented by: Sodium Chloride (0.9% Nacl (Sterile) Posiflush) 10 - 40 ml IV UD PRN PRN Reason: Port access or dressing change Medical Necessity - Tobacco Use Smoking Status: Former smoker Tobacco Use: Cigarettes Assessment/Plan All Active Problems (Last Updated 04/09/19 @ 08:12 by Verna Beltran MD) Pleural effusion due to CHF (congestive heart failure) (Acute) Diastolic CHF, acute on chronic (Acute) Pericardial effusion (Acute) This is a 68 years old male patient presented to the emergency room because of worsening shortness of breath and weakness, found to have increasing right pleural effusion complicated by acute on chronic hypercapnic and hypoxic respiratory failure and also found to have probable acute on chronic diastolic CHF. #1 acute on chronic hypercapnic and hypoxic respiratory failure: Secondary to recurrent pleural effusions as well as probable acute CHF. Status post thoracentesis x2 and he has been on IV Lasix. Respiratory status is improving, requiring less oxygen. Small, he is on nasal cannula at 2 L with pulse ox of 96%. Symptoms improved. 2D echocardiogram revealed stage I diastolic dysfunction, trivial to small pericardial effusion, global scintillating left ventricle consistent with amyloidosis, no mention of ejection fraction. Plan to continue same treatment, wean off oxygen as tolerated, DC Hamilton catheter, ambulate, patient mentioned that he is not willing to go to a [place] facility. #2 recurrent right pleural effusion: Status post thoracentesis x2, total of 4 L of fluid taken out. Patient had thoracentesis back on December,, effusion seemed to be transudative. It is probably due to CHF and amyloidosis. Remained on IV Lasix. Plan to continue IV diuresis. #3 probable acute on chronic diastolic CHF: He is IV Lasix, and he is on metoprolol. Started on losartan. 2D echocardiogram reviewed as above. His kidney function is stable. Appreciate cardiology recommendations, plan to continue same treatment. #4 hypertension: Blood pressure stable, continue metoprolol and losartan. #5 amyloidosis: Currently on treatment by oncology, appreciate oncology recommendations. #6 hypothyroidism: Continue levothyroxine. #7 nephrotic syndrome with proteinuria: Secondary to amyloidosis. Serum protein and albumin are low. Kidney function is stable. Nephrology consulted, on losartan and Diamox.. #8 DVT prophylaxis: Subcu heparin. This note was generated with [employer] dictation software. It may contain incorrect words, spelling, and punctuation that were not noted in checking the note before signing. Code Visit Inpatient E&M: 01593 Subs Hosp L2
--- NOTE | 2019-04-11 08:29 | PCM.PN.PUL ---
Patient Problems: Active and Suspected Problems (Last Updated 04/09/19 @ 08:12 by Verna Beltran MD) Pleural effusion due to CHF (congestive heart failure) (Acute) Subjective: Patient much improved this morning. Patient back on minimal nasal cannula oxygen. Patient denies any shortness of breath at rest and appears much more appropriate at this time. Objective: Patient did have a thoracentesis yesterday with 2 L removed and significant improvement in oxygenation. Chest x-ray shows no complications. - Physical Exam Vitals/I&O's: Vital Signs Temp Pulse Resp BP Pulse Ox 36.8 C 91 45 H 111/68 96 04/11/19 06:13 04/11/19 07:30 04/11/19 06:13 04/11/19 06:13 04/11/19 06:13 Oxygen Flow Rate (L/min) [4] 2 Oxygen Flow Rate (L/min) [3] 2 Oxygen Flow Rate (L/min) [2] 2 Oxygen Flow Rate (L/min) [1 ( 2 Initial Baseline)] Oxygen Flow Rate (L/min) 2 Oxygen Delivery Method [4] Nasal Cannula Oxygen Delivery Method [3] Nasal Cannula Oxygen Delivery Method [2] Nasal Cannula Oxygen Delivery Method [1 ( Nasal Cannula Initial Baseline)] Oxygen Delivery Method Nasal Cannula Weight: 96.1 kg Body Mass Index (BMI) 32.1 Intake and Output for Last 24 Hours 04/09/19 04/10/19 04/11/19 23:59 23:59 23:59 Intake Total 574 / 574 1160 / 1160 494 / 494 Output Total 1050 / 1050 1700 / 1700 600 / 600 Balance -476 / -476 -540 / -540 -106 / -106 General: Alert, Oriented x3, Cooperative, No apparent distress, Well developed, Well nourished, - - No conversational dyspnea HEENT: Atraumatic, PERRLA, EOMI, Normocephalic, - - No scleral icterus or injection Oral: Moist Mucosa, No Gingival or Mucosal Lesions/ Ulcerations Neck: Supple, No JVD, No Nodes, Trachea Midline Lungs: No rhonchi, No wheeze, No rales, Diminished, - - Symmetric expansion. No dullness to percussion. Cardiovascular: Regular rate, Regular Rhythm, Normal S1, Normal S2, No murmurs, No rub noted, No Gallop Abdomen: Bowel Sounds Present, Soft, Non Tender, Non-Distended Extremities: No clubbing, No cyanosis, Capillary Refill Less than 3 Seconds Skin: No rashes, No breakdown Musculoskeletal: No Tenderness to Palpation of Joints or Extremities Lymphatic: No Cervical, Supraclavicular, or Inguinal Adenopathy Neurological: Cranial nerves II-XII grossly intact, Neuro grossly intact, Motor Exam 5/5 strength throughout Psych/Mental Status: Normal Affect, Appropriate Laboratory Results 04/10/19 06:37: B-Natriuretic Peptide 386.0 H 04/10/19 14:45: Urine Creatinine 103.00 04/10/19 14:45: U Random Total Protein 102.2 H 04/11/19 04:45: Sodium 140, Potassium 3.6, Chloride 95 L, Carbon Dioxide > 45.0 H*, BUN 38 H, Creatinine 1.15, Estim Creat Clear Calc 61.48, Est GFR (MDRD) Af Amer 81, Est GFR (MDRD) Non-Af 67, BUN/Creatinine Ratio 33.0 H, Glucose 119 H, Calcium 8.0 L, Phosphorus 3.2, Albumin 1.5 L Current Medications Acetaminophen (Tylenol) 650 mg PO Q6H PRN PRN PRN Reason: Pain Score 1-10/Temp > 100.7 F Acetazolamide (Diamox) 250 mg IV X1 ONE Stop: 04/11/19 09:01 Acyclovir (Zovirax) 400 mg PO QWEEK [facility] Last Admin: 04/10/19 08:23 Dose: 400 mg Documented by: Furosemide (Lasix) 40 mg IV Q8 [facility] Last Admin: 04/11/19 06:21 Dose: 40 mg Documented by: Glucagon () 1 mg IM .X1 PRN PRN Reason: Hypoglycemia Guaifenesin (Robitussin) 20 ml PO Q4H PRN PRN PRN Reason: COUGH Heparin Sodium (Beef Lung) () 50 units IV UD PRN PRN Reason: Port-a-Cath (VAD)Heparin Flush Dextrose (Dextrose 10%-Water) 250 mls @ 999 mls/hr IV .Q16M PRN; Protocol PRN Reason: HYPOGLYCEMIA Levothyroxine Sodium (Synthroid) 25 mcg PO DAILY@0600 [facility] Last Admin: 04/11/19 06:29 Dose: 25 mcg Documented by: Losartan Potassium (Cozaar) 25 mg PO DAILY [facility] Magnesium Hydroxide (Milk Of Magnesia) 30 ml PO DAILY PRN PRN PRN Reason: Constipation Metoprolol Succinate (Toprol Xl (Beta Zak)) 50 mg PO DAILY [facility] Last Admin: 04/10/19 08:23 Dose: 50 mg Documented by: Nitroglycerin (Nitrostat) 0.4 mg SUBLINGUAL Q5M PRN PRN Reason: CARDIAC/CHEST PAIN Ondansetron HCl (Zofran) 4 mg IV Q8H PRN PRN PRN Reason: NAUSEA/VOMITING Sodium Chloride () 10 - 40 ml IV UD PRN PRN Reason: Port-a-Cath (VAD) Flush Last Admin: 04/11/19 06:21 Dose: 20 ml Documented by: Sodium Chloride (0.9% Nacl (Sterile) Posiflush) 10 - 40 ml IV UD PRN PRN Reason: Port access or dressing change Clinical Impression(s) from Imaging Studies Chest X-Ray 04/10/19 08:11 IMPRESSION: Improved aeration of both lungs with decreased right pleural effusion. Persistent bilateral infiltrates. Electronically Signed: Rory Rosa at 8:39 EST , Service support , Thoracentesis Ultrasound 04/10/19 08:31 IMPRESSION: Ultrasound-guided right thoracentesis. Electronically Signed: Rory Rosa at 14:13 EST , Service support , Chest X-Ray 04/10/19 13:30 IMPRESSION: Status post right thoracentesis. There is no evidence of pneumothorax. Electronically Signed: Rory Rosa at 14:50 EST , Service support , Medical Necessity - Tobacco Use Smoking Status: Former smoker Tobacco Use: Cigarettes Assessment/Plan All Active Problems (Last Updated 04/09/19 @ 08:12 by Verna Beltran MD) Pleural effusion due to CHF (congestive heart failure) (Acute) Diastolic CHF, acute on chronic (Acute) Pericardial effusion (Acute) RECOMMENDATIONS: 1. Continue with diuresis as tolerated 2. Repeat chest x-ray in 4 to 6 weeks 3. Wean oxygen as tolerated. Walking oximetry prior to discharge 4. Encourage pulmonary toileting with Acapella and incentive spirometer 5. Consider outpatient sleep study 6. Okay to discharge from a pulmonary perspective IMPRESSIONS: 1. Acute on chronic combined respiratory failure secondary to acute on chronic diastolic CHF Patient with significant thoracentesis with resolution of right-sided pleural effusion. Patient does have some residual infiltrate, likely secondary to atelectasis from compression. Clinical suspicion for residual fluid more than rapid accumulation. Patient is developing a contraction alkalosis, so would proceed with a repeat thoracentesis. Given chronic CO2 retention, nocturnal BiPAP would be helpful. Patient should have a sleep study as an outpatient. Patient will need a chest x-ray in 4 to 6 weeks to check for reaccumulation. If patient has rapid reaccumulation, Pleurx catheter can be evaluated as an option. High clinical suspicion for recurrence of pleural effusion at some point given concomitant amyloidosis. 2. Amyloidosis Oncology following with the patient. Amyloidosis can affect the lungs, but typically it is from a secondary cause such as nephrotic syndrome and congestive heart failure. Patient could have a CT once pleural effusion is resolved for evaluation of lung parenchyma, but it would likely not change the overall course. Patient may benefit from pulmonary function testing once he is back to his baseline, but defer to primary service. 3. Nephrotic syndrome/hypothyroidism/hypertension/metabolic encephalopathy Complicates care, management, recovery and prognosis. Oncology has been consulted. Okay to continue with baseline medications. Suggest delirium protocol. Avoid benzodiazepines. Consider Haldol as needed Code Visit Inpatient E&M: 83273 Subs Hosp L2
--- NOTE | 2019-04-11 08:39 | PN_ITS ---
Progress Note Oncology progress note: Patient is much better. No pain or shortness of breath. much more alert today. Requests his [place] to be removed this morning. He has no fever, chills, nausea, vomiting or diarrhea. No bone pain or neuropathy. Intake & Output 04/08/19 04/09/19 04/10/19 04/11/19 23:59 23:59 23:59 23:59 Intake Total 717 / 717 574 / 574 1160 / 1160 494 / 494 Output Total 2425 / 2425 1050 / 1050 1700 / 1700 600 / 600 Balance -1708 / -1708 -476 / -476 -540 / -540 -106 / -106 Weight: 217 lb 13.067 oz 218 lb 4.122 oz 214 lb 15.211 oz 211 lb 13.828 oz Vital Signs Height 5 ft 9 in Weight: 211 lb 13.828 oz Weight in Pounds 211.9 lbs Pulse Ox 96 Temperature 98.2 F Pulse Rate [4] 82 Pulse Rate [3] 90 Pulse Rate [2] 88 Pulse Rate [1 (Initial 88 Baseline)] Pulse Rate 91 Respiratory Rate [4] 18 Respiratory Rate [3] 18 Respiratory Rate [2] 18 Respiratory Rate [1 (Initial 16 Baseline)] Respiratory Rate 45 Blood Pressure [BP] 96/69 Blood Pressure [4] 87/55 Blood Pressure [3] 89/54 Blood Pressure [2] 86/46 Blood Pressure [1 (Initial 85/49 Baseline)] Blood Pressure 111/68 Blood Pressure Position [BP] Semi-Fowlers Blood Pressure Position Semi-Fowlers Exam: No JVD, chest clear to auscultation Cardiac exam unremarkable regular rate rhythm Extremities show no edema; no petechiae or ecchymosis. Neurologic: Alert and orientated x 3 Nonfocal. Laboratory Results - last 24 hr 04/10/19 04/10/19 04/10/19 06:37 14:45 14:45 Sodium Potassium Chloride Carbon Dioxide BUN Creatinine Estim Creat Clear Calc Est GFR (MDRD) Af Amer Est GFR (MDRD) Non-Af BUN/Creatinine Ratio Glucose Calcium Phosphorus B-Natriuretic Peptide 386.0 H Albumin U Random Total Protein 102.2 H Urine Creatinine 103.00 04/11/19 04:45 Sodium 140 Potassium 3.6 Chloride 95 L Carbon Dioxide > 45.0 H* BUN 38 H Creatinine 1.15 Estim Creat Clear Calc 61.48 Est GFR (MDRD) Af Amer 81 Est GFR (MDRD) Non-Af 67 BUN/Creatinine Ratio 33.0 H Glucose 119 H Calcium 8.0 L Phosphorus 3.2 B-Natriuretic Peptide Albumin 1.5 L U Random Total Protein Urine Creatinine Impression/Plan: 1. Systemic AL amyloidosis Assessment: -Patient recently diagnosed with systemic amyloidosis, lambda light chain type after presenting with nephrotic syndrome and CHF secondary to diastolic dysfunction due to cardiac amyloid involvement. (B-tNP & troponins were elevated) Plan: -Appreciated nephrology recommendations -Continue diuresis & monitor weight and output -Dietary consult 2) Hepatic encephalopathy Assessment: -Compensated metabolic alkalosis; elevated bicarbonate without anion gap -Improving Plan: -Possible short-term rehabilitation to monitor mental status -Follow recommendations per school child care attendant 3) Plasma cell dyscrasia Assessment: -Completed 1st cycle of chemotherapy with cyclophosphamide/bortezomib/dexamethasone -Counts adequate except for anemia and moderate thrombocytopenia. Plan: -Continue chemotherapy as an outpatient next week -Consider starting Aranesp injection for anemia -Continue acyclovir 400mg once daily for HVS prophylaxis -Follow-up in my office next week. cc: Dr. Gerry Pate; Dr. Amy Lemus; Dr. Verna Beltran; Dr. Alek Crowder STROKE Vital Signs/Narrative: Vital Signs Temp Pulse Resp BP Pulse Ox 04/11/19 07:30 91 04/11/19 06:13 98.2 F 87 45 H 111/68 96
--- NOTE | 2019-04-11 09:11 | PCM.PN.BLA ---
Progress Note continues to diurese well, added diamox for metabolic alkalosis. renal fxn stable. UPCR 1g/g protein from amyloidosis continue with diamox daily. consider repeat ABG to f/u on hypercapnea STROKE Vital Signs/Narrative: Vital Signs Temp Pulse Resp BP Pulse Ox 04/11/19 07:30 91 04/11/19 06:13 98.2 F 87 45 H 111/68 96
[2019-04-11] MEDS: Metoprolol(XL)Succ 50 MG Tablet PO (10:15)
[2019-04-11] MEDS: Losartan Potassium 25 MG Tablet PO (10:15)
[2019-04-11] MEDS: AcetaZOLAMIDE 500 MG/10 ML Vial 250 MG IV (10:30)
[2019-04-11] MEDS: Acyclovir 200 MG Capsule 400 MG PO (10:30)
--- NOTE | 2019-04-11 11:28 | CM.UR ---
Addendum entered by Melba Cosme 04/11/19 11:37: Upon review of [employer], [facility] home [facility] care [facility] Referral faxed to them at this time. Alexis Cosme RN, CCM Original Note: Dr. Beltran alerted me that patient does not want SNF and asked if I would talk to him about HHC. Met face to face with patient at this time. Again he declined SNF placement stating he wanted to go home. Discussed HHC and he said, No, I'm going to get it right here because my insurance will pay for it. I didn't understand what he meant but that. Discussed HHC explaining his insurance will cover HHC and also that it will cover SNF as well. States, probably. Instructed on what HHC is and the purpose. Verb understanding and agreement at this time. Asked if he had a preference on HHC company and he states no. Explained I'll make sure to choose someone who is in network for his insurance. Verb agreement. confirmed that he has oxygen at home. Also asked if he needed any equipment for use in the home and he denied. Alexis Cosme RN, CCM.
--- NOTE | 2019-04-11 12:56 | PCM.PN.CARD ---
Subjectve: The patient is awake and alert. He denies any ongoing acute shortness of breath/dyspnea. He states his breathing has improved overall. He continues with lower extremity peripheral pitting edema. Objective: Vital Signs Temp Pulse Resp BP Pulse Ox 98.0 F 91 32 H 97/65 98 04/11/19 10:09 04/11/19 11:11 04/11/19 10:09 04/11/19 10:09 04/11/19 10:09 Oxygen Flow Rate (L/min) [4] 2 Oxygen Flow Rate (L/min) [3] 2 Oxygen Flow Rate (L/min) [2] 2 Oxygen Flow Rate (L/min) [1 ( 2 Initial Baseline)] Oxygen Flow Rate (L/min) 2 Oxygen Delivery Method [4] Nasal Cannula Oxygen Delivery Method [3] Nasal Cannula Oxygen Delivery Method [2] Nasal Cannula Oxygen Delivery Method [1 ( Nasal Cannula Initial Baseline)] Oxygen Delivery Method Nasal Cannula Weight: 211 lb 13.828 oz Body Mass Index (BMI) 32.1 Intake and Output for Last 24 Hours 04/09/19 04/10/19 04/11/19 23:59 23:59 23:59 Intake Total 574 / 574 1160 / 1160 494 / 494 Output Total 1050 / 1050 1700 / 1700 1600 / 1600 Balance -476 / -476 -540 / -540 -1106 / -1106 General: Awake, Alert, Oriented x 3, Cooperative, No Acute Distress HEENT: Atraumatic, Normocephalic, PERRL, EOMI Oral: Moist Mucosa Neck: Supple, Good ROM Lungs: Diminished Right Base Cardiovascular: Regular Rhythm, Normal S1, Normal S2 Abdomen: Bowel Sounds Present, Soft, Non Tender Extremities: Moderate RLE Edema, Moderate LLE Edema Psych/Mental Status: Appropriate 04/10/19 06:37: B-Natriuretic Peptide 386.0 H 04/11/19 04:45: Sodium 140, Potassium 3.6, Chloride 95 L, Carbon Dioxide > 45.0 H*, BUN 38 H, Creatinine 1.15, Est GFR (MDRD) Af Amer 81, Est GFR (MDRD) Non-Af 67, BUN/Creatinine Ratio 33.0 H, Glucose 119 H, Calcium 8.0 L, Phosphorus 3.2 Rhythm: Sinus rhythm Medical Necessity - Tobacco Use Smoking Status: Former smoker Tobacco Use: Cigarettes Assessment/Plan 1. Acute on chronic diastolic mediated CHF The patient presented back with acute on chronic diastolic mediated CHF. There are concerns this is related to his history of underlying amyloidosis and nephrotic syndrome. At the moment he is continuing medical management. Depending upon his clinical course especially if he is requires recurrent thoracentesis procedures he may need a thoracic/pleural space catheter to help manage his recurrent pleural effusions long-term. 2. Amyloidosis He has been diagnosed with amyloidosis. He is continuing under evaluation care by internal medicine and hematology/oncology. 3. Nephrotic syndrome He continues with input from his multiple subspecialist including nephrology. 4. Hypertension He will continue medical management. This note was generated using a voice recognition system and there may be incorrect words, spelling or punctuation that were not noted when reviewing the office note prior to saving.
[2019-04-12] VITALS (17 sets, daily range): BP systolic 93–117; BP diastolic 63–79; PULSE 76–94; RESP 15–28; TEMP 36.4–37.1; O2SAT 94–98
[2019-04-12] MEDS: Levothyroxine 25 MCG TABLET PO (05:00)
[2019-04-12] MEDS: 0.9% Saline Lock 10 ML Syringe IV ×2 (05:04→21:01)
[2019-04-12] MEDS: Furosemide 40 MG/4 ML Vial IV ×3 (05:04→21:01)
[2019-04-12 05:20] LABS: Albumin, Serum 1.5 g/dL (3.2-5.0); BUN 34 mg/dL (7-18); BUN/Creat Ratio 34.8 RATIO (10-20); Calcium,Total 8.1 mg/dL (8.5-10.1); Chloride 95 mmol/L (98-107); Creatinine, Serum 0.98 mg/dL (0.70-1.30); EST Glomerular Filtration Rate 81 mL/min (>60); Est Glom Filt Rate - Afr Amer 98 mL/min (>60); Estimated Creatinine Clearance 72.14 ml/min; Glucose 90 mg/dL (74-106); Phosphorus 2.9 mg/dL (2.5-4.9); Potassium 3.5 mmol/L (3.5-5.1); Sodium Level 140 mmol/L (136-145)
--- NOTE | 2019-04-12 08:23 | PN_ITS ---
Patient Problems: Active and Suspected Problems (Last Updated 04/09/19 @ 08:12 by Verna Beltran MD) Pleural effusion due to CHF (congestive heart failure) (Acute) Subjective: Patient did well overnight. Patient did wear BiPAP for some of the evening. Patient reports his breathing is back to baseline. Patient was able to go to room air following BiPAP. Patient is refusing to go to a nursing facility on discharge. - Physical Exam Vitals/I&O's: Vital Signs Temp Pulse Resp BP Pulse Ox 36.6 C 76 19 H 115/79 94 04/12/19 05:00 04/12/19 07:00 04/12/19 06:00 04/12/19 05:00 04/12/19 06:00 Oxygen Flow Rate (L/min) [4] 2 Oxygen Flow Rate (L/min) [3] 2 Oxygen Flow Rate (L/min) [2] 2 Oxygen Flow Rate (L/min) [1 ( 2 Initial Baseline)] Oxygen Flow Rate (L/min) 2 Oxygen Delivery Method [4] Nasal Cannula Oxygen Delivery Method [3] Nasal Cannula Oxygen Delivery Method [2] Nasal Cannula Oxygen Delivery Method [1 ( Nasal Cannula Initial Baseline)] Oxygen Delivery Method Bi-pap Weight: 94.9 kg Body Mass Index (BMI) 32.1 Intake and Output for Last 24 Hours 04/10/19 04/11/19 04/12/19 23:59 23:59 23:59 Intake Total 1160 / 1160 734 / 734 240 / 240 Output Total 1700 / 1700 3875 / 3875 250 / 250 Balance -540 / -540 -3141 / -3141 -10 / -10 General: Alert, Oriented x3, Cooperative, No apparent distress, - - Good BiPAP synchrony on my evaluation. Obese. HEENT: Atraumatic, PERRLA, EOMI, Normocephalic, - - No scleral icterus or injection noted Oral: Moist Mucosa, No Gingival or Mucosal Lesions/ Ulcerations Neck: Supple, No JVD, No Nodes, Trachea Midline Lungs: No rhonchi, No wheeze, Diminished, Rales - Right greater than left base, - - Symmetric expansion Cardiovascular: Regular rate, Regular Rhythm, Normal S1, Normal S2, No murmurs, No rub noted, No Gallop Abdomen: Bowel Sounds Present, Soft, Non Tender, Non-Distended Extremities: No clubbing, No cyanosis, No edema, Capillary Refill Less than 3 Seconds Skin: No rashes, No breakdown Musculoskeletal: No Tenderness to Palpation of Joints or Extremities Lymphatic: No Cervical, Supraclavicular, or Inguinal Adenopathy Neurological: Cranial nerves II-XII grossly intact, Neuro grossly intact, Motor Exam 5/5 strength throughout Psych/Mental Status: Normal Affect, Appropriate Laboratory Results 04/12/19 04:50: Sodium 140, Potassium 3.5, Chloride 95 L, Carbon Dioxide 45.0 H, BUN 34 H, Creatinine 0.98, Estim Creat Clear Calc 72.14, Est GFR (MDRD) Af Amer 98, Est GFR (MDRD) Non-Af 81, BUN/Creatinine Ratio 34.8 H, Glucose 90, Calcium 8.1 L, Phosphorus 2.9, Albumin 1.5 L Current Medications Acetaminophen (Tylenol) 650 mg PO Q6H PRN PRN PRN Reason: Pain Score 1-10/Temp > 100.7 F Acyclovir (Zovirax) 400 mg PO DAILY [facility] Last Admin: 04/11/19 10:30 Dose: 400 mg Documented by: Furosemide (Lasix) 40 mg IV Q8 [facility] Last Admin: 04/12/19 05:04 Dose: 40 mg Documented by: Glucagon () 1 mg IM .X1 PRN PRN Reason: Hypoglycemia Guaifenesin (Robitussin) 20 ml PO Q4H PRN PRN PRN Reason: COUGH Heparin Sodium (Beef Lung) () 50 units IV UD PRN PRN Reason: Port-a-Cath (VAD)Heparin Flush Dextrose (Dextrose 10%-Water) 250 mls @ 999 mls/hr IV .Q16M PRN; Protocol PRN Reason: HYPOGLYCEMIA Levothyroxine Sodium (Synthroid) 25 mcg PO DAILY@0600 [facility] Last Admin: 04/12/19 05:00 Dose: 25 mcg Documented by: Losartan Potassium (Cozaar) 25 mg PO DAILY [facility] Last Admin: 04/11/19 10:15 Dose: 25 mg Documented by: Magnesium Hydroxide (Milk Of Magnesia) 30 ml PO DAILY PRN PRN PRN Reason: Constipation Metoprolol Succinate (Toprol Xl (Beta Zak)) 50 mg PO DAILY [facility] Last Admin: 01/11/20 10:15 Dose: 50 mg Documented by: Nitroglycerin (Nitrostat) 0.4 mg SUBLINGUAL Q5M PRN PRN Reason: CARDIAC/CHEST PAIN Ondansetron HCl (Zofran) 4 mg IV Q8H PRN PRN PRN Reason: NAUSEA/VOMITING Sodium Chloride () 10 - 40 ml IV UD PRN PRN Reason: Port-a-Cath (VAD) Flush Last Admin: 04/12/19 05:04 Dose: 40 ml Documented by: Sodium Chloride (0.9% Nacl (Sterile) Posiflush) 10 - 40 ml IV UD PRN PRN Reason: Port access or dressing change Medical Necessity - Tobacco Use Smoking Status: Former smoker Tobacco Use: Cigarettes Assessment/Plan All Active Problems (Last Updated 04/09/19 @ 08:12 by Verna Beltran MD) Pleural effusion due to CHF (congestive heart failure) (Acute) Diastolic CHF, acute on chronic (Acute) Pericardial effusion (Acute) RECOMMENDATIONS: 1. Continue with diuresis as tolerated 2. Repeat chest x-ray in 4 to 6 weeks 3. Wean oxygen as tolerated. Walking oximetry prior to discharge 4. Encourage pulmonary toileting with Acapella and incentive spirometer 5. Consider outpatient sleep study 6. Okay to discharge from a pulmonary perspective IMPRESSIONS: 1. Acute on chronic combined respiratory failure secondary to acute on chronic diastolic CHF Patient with significant thoracentesis with resolution of right-sided pleural effusion. Patient does have some residual infiltrate, likely secondary to atelectasis from compression. Clinical suspicion for residual fluid more than rapid accumulation. Patient appears to be responding well to BiPAP therapy as bicarbonate is now measurable indicating probable lower CO2. Patient would need an ABG to confirm. Patient could be placed on BiPAP therapy nocturnally secondary to chronic respiratory failure, but would be better served with a sleep study as an outpatient to ensure control of any obstructive sleep apnea that may complicate cardiac management. 2. Amyloidosis Oncology following with the patient. Amyloidosis can affect the lungs, but typically it is from a secondary cause such as nephrotic syndrome and congestive heart failure. Patient could have a CT once pleural effusion is resolved for evaluation of lung parenchyma, but it would likely not change the overall course. Patient may benefit from pulmonary function testing once he is back to his baseline, but defer to primary service. 3. Nephrotic syndrome/hypothyroidism/hypertension/metabolic encephalopathy Complicates care, management, recovery and prognosis. Oncology has been consulted. Okay to continue with baseline medications. Suggest delirium protocol. Avoid benzodiazepines. Consider Haldol as needed Code Visit Inpatient E&M: 64551 Subs Hosp L2
--- NOTE | 2019-04-12 08:30 | PN_ITS ---
Progress Note Oncology progress note: Patient is doing much better today. He is much more alert. He has not ambulated yet but denies any shortness of breath at rest. Examination: Intake and Output for Last 24 Hours 04/10/19 04/11/19 04/12/19 23:59 23:59 23:59 Intake Total 1160 / 1160 734 / 734 240 / 240 Output Total 1700 / 1700 3875 / 3875 250 / 250 Balance -540 / -540 -3141 / -3141 -10 / -10 Vital Signs Height 5 ft 9 in Weight: 209 lb 3.499 oz Weight in Pounds 209.2 lbs Pulse Ox 96 Temperature 97.9 F Pulse Rate [4] 82 Pulse Rate [3] 90 Pulse Rate [2] 88 Pulse Rate [1 (Initial 88 Baseline)] Pulse Rate 76 Respiratory Rate [4] 18 Respiratory Rate [3] 18 Respiratory Rate [2] 18 Respiratory Rate [1 (Initial 16 Baseline)] Respiratory Rate 19 Blood Pressure [BP] 96/69 Blood Pressure [4] 87/55 Blood Pressure [3] 89/54 Blood Pressure [2] 86/46 Blood Pressure [1 (Initial 85/49 Baseline)] Blood Pressure 115/79 Blood Pressure Position [BP] Semi-Fowlers Blood Pressure Position Semi-Fowlers CV: Regular rate and rhythm Lungs diminished breath sound lung bases Abdomen: Benign, active bowel sounds nontender no hepatosplenomegaly Extremities: Trace edema Neurologic's: Alert and orientated x3 Nonfocal Laboratory Results - last 24 hr 04/12/19 04:50 Sodium 140 Potassium 3.5 Chloride 95 L Carbon Dioxide 45.0 H BUN 34 H Creatinine 0.98 Estim Creat Clear Calc 72.14 Est GFR (MDRD) Af Amer 98 Est GFR (MDRD) Non-Af 81 BUN/Creatinine Ratio 34.8 H Glucose 90 Calcium 8.1 L Phosphorus 2.9 Albumin 1.5 L IMPRESSION: Systemic AL amyloidosis Assessment: -Patient recently diagnosed with systemic amyloidosis, lambda light chain type after presenting with nephrotic syndrome and CHF secondary to diastolic dysfunction due to cardiac amyloid involvement. (B-tNP & troponins were elevated) Plan: -Appreciated nephrology recommendations -Continue diuresis & monitor weight and output -Dietary consult 2) Hepatic encephalopathy Assessment: -Compensated metabolic alkalosis; elevated bicarbonate without anion gap -Resolved, mental status back to baseline. Plan: -Possible discharge home with home health and follow-up in my office next Saturday -Follow recommendations per windows server administrator -CPAP at night 3) Plasma cell dyscrasia Assessment: -Completed 1st cycle of chemotherapy with cyclophosphamide/bortezomib/dexamethasone -Counts adequate except for anemia and moderate thrombocytopenia. Plan: -Continue chemotherapy as an outpatient next week -Consider starting Aranesp injection for anemia next week -Continue acyclovir 400mg once daily for HVS prophylaxis -Follow-up in my office next week. STROKE Vital Signs/Narrative: Vital Signs Temp Pulse Resp BP Pulse Ox 04/12/19 07:59 96 04/12/19 07:00 76 04/12/19 06:00 78 19 H 94 04/12/19 05:00 97.9 F 86 20 H 115/79 96
[2019-04-12] MEDS: Acyclovir 200 MG Capsule 400 MG PO (09:09)
[2019-04-12] MEDS: Losartan Potassium 25 MG Tablet PO (09:10)
[2019-04-12] MEDS: Metoprolol(XL)Succ 50 MG Tablet PO (09:10)
--- NOTE | 2019-04-12 11:28 | PN_ITS ---
Patient Problems: Active and Suspected Problems (Last Updated 04/09/19 @ 08:12 by Verna Beltran MD) Pleural effusion due to CHF (congestive heart failure) (Acute) Subjective: Chief complaint: Follow-up after admission for acute on chronic hypoxic respiratory failure, recurrent right pleural effusion and probable acute on chr onic diastolic CHF. Patient seen and examined. No acute events overnight. His breathing has been stable, tolerating BiPAP overnight. Later, he was on oxygen at 2 L and he did okay. His other vital signs are stable. - Physical Exam Vitals/I&O's: Vital Signs Temp Pulse Resp BP Pulse Ox 98.5 F 94 22 H 117/69 94 04/12/19 09:00 04/12/19 09:10 04/12/19 09:00 04/12/19 09:00 04/12/19 09:00 Oxygen Flow Rate (L/min) [4] 2 Oxygen Flow Rate (L/min) [3] 2 Oxygen Flow Rate (L/min) [2] 2 Oxygen Flow Rate (L/min) [1 ( 2 Initial Baseline)] Oxygen Flow Rate (L/min) 2 Oxygen Delivery Method [4] Nasal Cannula Oxygen Delivery Method [3] Nasal Cannula Oxygen Delivery Method [2] Nasal Cannula Oxygen Delivery Method [1 ( Nasal Cannula Initial Baseline)] Oxygen Delivery Method Nasal Cannula Weight: 209 lb 3.499 oz Body Mass Index (BMI) 32.1 Intake and Output for Last 24 Hours 04/10/19 04/11/19 04/12/19 23:59 23:59 23:59 Intake Total 1160 / 1160 734 / 734 240 / 240 Output Total 1700 / 1700 3875 / 3875 850 / 850 Balance -540 / -540 -3141 / -3141 -610 / -610 General: Alert, Oriented x3, Cooperative, No apparent distress HEENT: Atraumatic, PERRLA, EOMI, Normocephalic Oral: Moist Mucosa, No Gingival or Mucosal Lesions/ Ulcerations Neck: Supple, No JVD, Negative Carotid Bruits, Trachea Midline, Thyroid Normal Size and Texture Lungs: No wheeze, No rales, Diminished, Rhonchi, - - Decreased breath sounds at the bases, more on the right base, scattered rhonchi. Cardiovascular: Regular rate, Regular Rhythm, Normal S1, Normal S2, PMI Normal Abdomen: Bowel Sounds Present, Soft, Non Tender, Non-Distended, No Hepato-spleno megaly Extremities: No clubbing, No cyanosis, Edema Skin: No rashes, No breakdown Lymphatic: No Cervical, Supraclavicular, or Inguinal Adenopathy Neurological: Cranial nerves II-XII grossly intact, Neuro grossly intact Psych/Mental Status: Normal Affect, Appropriate Laboratory Results 04/12/19 04:50: Sodium 140, Potassium 3.5, Chloride 95 L, Carbon Dioxide 45.0 H, BUN 34 H, Creatinine 0.98, Estim Creat Clear Calc 72.14, Est GFR (MDRD) Af Amer 98, Est GFR (MDRD) Non-Af 81, BUN/Creatinine Ratio 34.8 H, Glucose 90, Calcium 8.1 L, Phosphorus 2.9, Albumin 1.5 L Current Medications Acetaminophen (Tylenol) 650 mg PO Q6H PRN PRN PRN Reason: Pain Score 1-10/Temp > 100.7 F Acyclovir (Zovirax) 400 mg PO DAILY [facility] Last Admin: 04/12/19 09:09 Dose: 400 mg Documented by: Furosemide (Lasix) 40 mg IV Q8 [facility] Last Admin: 04/12/19 05:04 Dose: 40 mg Documented by: Glucagon () 1 mg IM .X1 PRN PRN Reason: Hypoglycemia Guaifenesin (Robitussin) 20 ml PO Q4H PRN PRN PRN Reason: COUGH Heparin Sodium (Beef Lung) () 50 units IV UD PRN PRN Reason: Port-a-Cath (VAD)Heparin Flush Dextrose (Dextrose 10%-Water) 250 mls @ 999 mls/hr IV .Q16M PRN; Protocol PRN Reason: HYPOGLYCEMIA Levothyroxine Sodium (Synthroid) 25 mcg PO DAILY@0600 [facility] Last Admin: 04/12/19 05:00 Dose: 25 mcg Documented by: Losartan Potassium (Cozaar) 25 mg PO DAILY [facility] Last Admin: 04/12/19 09:10 Dose: 25 mg Documented by: Magnesium Hydroxide (Milk Of Magnesia) 30 ml PO DAILY PRN PRN PRN Reason: Constipation Metoprolol Succinate (Toprol Xl (Beta Zak)) 50 mg PO DAILY [facility] Last Admin: 04/12/19 09:10 Dose: 50 mg Documented by: Nitroglycerin (Nitrostat) 0.4 mg SUBLINGUAL Q5M PRN PRN Reason: CARDIAC/CHEST PAIN Ondansetron HCl (Zofran) 4 mg IV Q8H PRN PRN PRN Reason: NAUSEA/VOMITING Sodium Chloride () 10 - 40 ml IV UD PRN PRN Reason: Port-a-Cath (VAD) Flush Last Admin: 04/12/19 05:04 Dose: 40 ml Documented by: Sodium Chloride (0.9% Nacl (Sterile) Posiflush) 10 - 40 ml IV UD PRN PRN Reason: Port access or dressing change Medical Necessity - Tobacco Use Smoking Status: Former smoker Tobacco Use: Cigarettes Assessment/Plan All Active Problems (Last Updated 04/09/19 @ 08:12 by Verna Beltran MD) Pleural effusion due to CHF (congestive heart failure) (Acute) Diastolic CHF, acute on chronic (Acute) Pericardial effusion (Acute) This is a 68 years old male patient presented to the emergency room because of worsening shortness of breath and weakness, found to have increasing right pleural effusion complicated by acute on chronic hypercapnic and hypoxic respiratory failure and also found to have probable acute on chronic diastolic CHF. #1 acute on chronic hypercapnic and hypoxic respiratory failure: Remains on IV diuresis, intermittent acetazolamide, BiPAP at night and oxygen during daytime. It is attributed to recurrent pleural effusions as well as probable acute CHF. Status post thoracentesis x2 and he has been on IV Lasix. Pulse ox is maintained at 2 L of oxygen, it is 96%. Patient is feeling better. 2D echocardiogram revealed stage I diastolic dysfunction, trivial to small pericardial effusion, global scintillating left ventricle consistent with amyloidosis, no mention of ejection fraction. Initially, patient denied to go to SNF but today, he is willing to go to TCU in our hospital but not to any alf outside hospital. #2 recurrent right pleural effusion: Status post thoracentesis x2, total of 4 L of fluid taken out. Patient had thoracentesis back on December,, effusion seemed to be transudative. It is probably due to CHF and amyloidosis. Remained on IV Lasix. Plan to continue IV diuresis, BiPAP nightly and oxygen during daytime. #3 probable acute on chronic diastolic CHF: He is IV Lasix, and he is on metoprolol and losartan. 2D echocardiogram reviewed as above. His kidney function is stable. Appreciate cardiology recommendations, plan to continue same treatment. #4 hypertension: Blood pressure stable, continue metoprolol and losartan. #5 amyloidosis/plasma cell dyscrasia: Currently on treatment by oncology, appreciate oncology recommendations which was reviewed. #6 hypothyroidism: Continue levothyroxine. #7 nephrotic syndrome with proteinuria: Secondary to amyloidosis. Serum protein and albumin are low. Kidney function is stable. Nephrology consulted, on losartan, Lasix and Diamox.. #8 DVT prophylaxis: Subcu heparin. This note was generated with [employer] dictation software. It may contain incorrect words, spelling, and punctuation that were not noted in checking the note before signing. Code Visit Inpatient E&M: 92446 Subs Hosp L2
--- NOTE | 2019-04-12 13:34 | PCM.PN.CARD ---
Subjectve: The patient states he is feeling better overall with respect to his breathing. He still has an element of lower extremity peripheral pitting edema. Objective: Vital Signs Temp Pulse Resp BP Pulse Ox 98.5 F 94 22 H 117/69 94 04/12/19 09:00 04/12/19 09:10 04/12/19 09:00 04/12/19 09:00 04/12/19 09:00 Oxygen Flow Rate (L/min) [4] 2 Oxygen Flow Rate (L/min) [3] 2 Oxygen Flow Rate (L/min) [2] 2 Oxygen Flow Rate (L/min) [1 ( 2 Initial Baseline)] Oxygen Flow Rate (L/min) 2 Oxygen Delivery Method [4] Nasal Cannula Oxygen Delivery Method [3] Nasal Cannula Oxygen Delivery Method [2] Nasal Cannula Oxygen Delivery Method [1 ( Nasal Cannula Initial Baseline)] Oxygen Delivery Method Nasal Cannula Weight: 209 lb 3.499 oz Body Mass Index (BMI) 32.1 Intake and Output for Last 24 Hours 04/10/19 04/11/19 04/12/19 23:59 23:59 23:59 Intake Total 1160 / 1160 734 / 734 240 / 240 Output Total 1700 / 1700 3875 / 3875 850 / 850 Balance -540 / -540 -3141 / -3141 -610 / -610 General: Awake, Alert, Oriented x 3, Cooperative, No Acute Distress HEENT: Atraumatic, Normocephalic, PERRL, EOMI, Sclera Non Icteric Oral: Moist Mucosa Neck: Supple, Good ROM Lungs: Diminished Marcial Bases Cardiovascular: Regular Rhythm, Normal S1, Normal S2 Abdomen: Bowel Sounds Present, Soft, Non Tender Extremities: Mild RLE Edema, Mild LLE Edema Psych/Mental Status: Appropriate 04/12/19 04:50: Sodium 140, Potassium 3.5, Chloride 95 L, Carbon Dioxide 45.0 H, BUN 34 H, Creatinine 0.98, Est GFR (MDRD) Af Amer 98, Est GFR (MDRD) Non-Af 81, BUN/Creatinine Ratio 34.8 H, Glucose 90, Calcium 8.1 L, Phosphorus 2.9 Rhythm: Sinus rhythm Medical Necessity - Tobacco Use Smoking Status: Former smoker Tobacco Use: Cigarettes Assessment/Plan 1. Acute on chronic diastolic mediated CHF The patient presented back with acute on chronic diastolic mediated CHF. There are concerns this is related to his history of underlying amyloidosis and nephrotic syndrome. At the moment he is continuing medical management. This will include electrolyte supplementation. Depending upon his clinical course especially if he is requires recurrent thoracentesis procedures he may need a thoracic/pleural space catheter to help manage his recurrent pleural effusions long-term. 2. Amyloidosis He has been diagnosed with amyloidosis. He is continuing under evaluation care by internal medicine and hematology/oncology. 3. Nephrotic syndrome He continues with input from his multiple subspecialist including nephrology. 4. Hypertension He will continue medical management. This note was generated using a voice recognition system and there may be incorrect words, spelling or punctuation that were not noted when reviewing the office note prior to saving.
--- NOTE | 2019-04-12 19:51 | CPS ---
pt states doesnt want to wear bipap
--- NOTE | 2019-04-12 23:02 | CPS ---
pt states too much air flow-turned down i max to 17 and min to 10
[2019-04-13] VITALS (10 sets, daily range): BP systolic 107–118; BP diastolic 65–74; PULSE 84–95; RESP 20–24; TEMP 36.3–36.8; O2SAT 96–97
[2019-04-13] MEDS: Furosemide 40 MG/4 ML Vial IV (06:00)
[2019-04-13] MEDS: 0.9% Saline Lock 10 ML Syringe IV ×2 (06:00→15:34)
[2019-04-13] MEDS: Levothyroxine 25 MCG TABLET PO (06:01)
[2019-04-13 06:38] LABS: Albumin, Serum 1.6 g/dL (3.2-5.0); BUN 30 mg/dL (7-18); Calcium,Total 8.3 mg/dL (8.5-10.1); Chloride 95 mmol/L (98-107); Creatinine, Serum 0.88 mg/dL (0.70-1.30); EST Glomerular Filtration Rate 91 mL/min (>60); Est Glom Filt Rate - Afr Amer 110 mL/min (>60); Estimated Creatinine Clearance 80.34 ml/min; Glucose 88 mg/dL (74-106); Phosphorus 2.8 mg/dL (2.5-4.9); Potassium 3.8 mmol/L (3.5-5.1); Sodium Level 139 mmol/L (136-145)
--- NOTE | 2019-04-13 07:51 | PCM.PN.BLA ---
Progress Note Oncology progress note: Patient is feeling well today. Minimal shortness of breath even with exertion. Chronic pedal edema. No chest pain or dizziness. No nausea, vomiting or diarrhea. CV: Regular rate and rhythm Lungs diminished breath sound lung bases Abdomen: Benign, active bowel sounds nontender no hepatosplenomegaly Extremities: Trace edema Neurologic's: Alert and orientated x3 Nonfocal Laboratory Results - last 24 hr 04/13/19 06:00 Sodium 139 Potassium 3.8 Chloride 95 L Carbon Dioxide 44.0 H BUN 30 H Creatinine 0.88 Estim Creat Clear Calc 80.34 Est GFR (MDRD) Af Amer 110 Est GFR (MDRD) Non-Af 91 BUN/Creatinine Ratio 34.0 H Glucose 88 Calcium 8.3 L Phosphorus 2.8 Albumin 1.6 L ASSESSMENT: 68-year-old gentleman with plasma cell dyscrasia/systemic amyloidosis presented with acute/chronic diastolic congestive heart failure & nephrotic syndrome. on induction chemotherapy cyclophosphamide/bortezomib/dexamethasone. Overall, patient improved since this admission. Heart failure improved & metabolic encephalopathy resolved. Systemic AL amyloidosis Assessment: -Patient recently diagnosed with systemic amyloidosis, lambda light chain type after presenting with nephrotic syndrome and CHF secondary to diastolic dysfunction due to cardiac amyloid involvement. (B-tNP & troponins were elevated) Plan: -Continue diuresis & monitor weight and output -Dietary consult 2) Hepatic encephalopathy Assessment: -Compensated metabolic alkalosis; elevated bicarbonate without anion gap -Resolved Plan: -Possible discharge home with home health and follow-up in my office next Saturday -CPAP at night 3) Plasma cell dyscrasia Assessment: -Completed 1st cycle of chemotherapy with cyclophosphamide/bortezomib/dexamethasone -Counts adequate except for anemia and moderate thrombocytopenia, both slowly recovering.. Plan: -Continue chemotherapy as an outpatient next week -Consider starting Aranesp injection for anemia next week -Continue acyclovir 400mg once daily for HVS prophylaxis -Follow-up in my office next week. -Coordinate with nephrology and cardiology to manage heart failure during chemotherapy treatment. cc: Dr. Alek Crowder; Dr. Gerry Pate; Dr. Amy Lemus; Dr. Verna Beltran STROKE Vital Signs/Narrative: Vital Signs Temp Pulse Resp BP Pulse Ox 04/13/19 07:00 85 04/13/19 05:55 98.3 F 87 22 H 107/73 96
[2019-04-13] MEDS: Metoprolol(XL)Succ 50 MG Tablet PO (07:52)
[2019-04-13] MEDS: Acyclovir 200 MG Capsule 400 MG PO (07:52)
[2019-04-13] MEDS: Losartan Potassium 25 MG Tablet PO (07:52)
--- NOTE | 2019-04-13 09:08 | CASEMGMT ---
Patient has gone back and forth on going to SNF. Now he is agreeable to TCU only. SW called Ashley in TCU and she would have a bed for patient. She will start pre-cert request right now. CORY spoke with patient and confirmed he is agreeable to TCU and that TCU will have a bed for him pending insurance approval. Plan: TCU pending insurance approval. Manuela LOCKETT MSW
--- NOTE | 2019-04-13 10:24 | PCM.PROGNOTE ---
Patient Problems: Active and Suspected Problems (Last Updated 04/09/19 @ 08:12 by Verna Beltran MD) Pleural effusion due to CHF (congestive heart failure) (Acute) Subjective: Chief complaint: Follow-up after admission for acute on chronic hypoxic respiratory failure, recurrent right pleural effusion and probable acute on chronic diastolic CHF. Patient seen and examined. No acute events overnight. Today, he is feeling better, no more shortness of breath. Remained stable on 2 L of oxygen. Other vital signs are stable. - Physical Exam Vitals/I&O's: Vital Signs Temp Pulse Resp BP Pulse Ox 97.4 F L 89 22 H 118/67 96 04/13/19 09:00 04/13/19 09:00 04/13/19 09:00 04/13/19 09:00 04/13/19 09:00 Oxygen Flow Rate (L/min) [4] 2 Oxygen Flow Rate (L/min) [3] 2 Oxygen Flow Rate (L/min) [2] 2 Oxygen Flow Rate (L/min) [1 ( 2 Initial Baseline)] Oxygen Flow Rate (L/min) 2 Oxygen Delivery Method [4] Nasal Cannula Oxygen Delivery Method [3] Nasal Cannula Oxygen Delivery Method [2] Nasal Cannula Oxygen Delivery Method [1 ( Nasal Cannula Initial Baseline)] Oxygen Delivery Method Nasal Cannula Weight: 207 lb 7.28 oz Body Mass Index (BMI) 32.1 Intake and Output for Last 24 Hours 04/11/19 04/12/19 04/13/19 23:59 23:59 23:59 Intake Total 734 / 734 720 / 720 480 / 480 Output Total 3875 / 3875 3075 / 3075 775 / 775 Balance -3141 / -3141 -2355 / -2355 -295 / -295 General: Alert, Oriented x3, Cooperative, No apparent distress HEENT: Atraumatic, PERRLA, EOMI, Normocephalic Oral: Moist Mucosa, No Gingival or Mucosal Lesions/ Ulcerations Neck: Supple, No JVD, Negative Carotid Bruits, Trachea Midline, Thyroid Normal Size and Texture Lungs: Clear to auscultation, Normal air movement, No rhonchi, No wheeze, No rales, Diminished, - - Decreased breath sounds at the bases, otherwise clear. Cardiovascular: Regular rate, Regular Rhythm, Normal S1, Normal S2, PMI Normal Abdomen: Bowel Sounds Present, Soft, Non Tender, Non-Distended, No Hepato-splenomegaly Extremities: No clubbing, No cyanosis, No edema Skin: No rashes, No breakdown Lymphatic: No Cervical, Supraclavicular, or Inguinal Adenopathy Neurological: Cranial nerves II-XII grossly intact, Neuro grossly intact Psych/Mental Status: Normal Affect, Appropriate, Alert and oriented to time, place, person, mood and affect Laboratory Results 04/13/19 06:00: Sodium 139, Potassium 3.8, Chloride 95 L, Carbon Dioxide 44.0 H, BUN 30 H, Creatinine 0.88, Estim Creat Clear Calc 80.34, Est GFR (MDRD) Af Amer 110, Est GFR (MDRD) Non-Af 91, BUN/Creatinine Ratio 34.0 H, Glucose 88, Calcium 8.3 L, Phosphorus 2.8, Albumin 1.6 L Current Medications Acetaminophen (Tylenol) 650 mg PO Q6H PRN PRN PRN Reason: Pain Score 1-10/Temp > 100.7 F Acyclovir (Zovirax) 400 mg PO DAILY [facility] Last Admin: 04/13/19 07:52 Dose: 400 mg Documented by: Furosemide (Lasix) 40 mg IV Q8 [facility] Last Admin: 04/13/19 06:00 Dose: 40 mg Documented by: Glucagon () 1 mg IM .X1 PRN PRN Reason: Hypoglycemia Guaifenesin (Robitussin) 20 ml PO Q4H PRN PRN PRN Reason: COUGH Heparin Sodium (Beef Lung) () 50 units IV UD PRN PRN Reason: Port-a-Cath (VAD)Heparin Flush Dextrose (Dextrose 10%-Water) 250 mls @ 999 mls/hr IV .Q16M PRN; Protocol PRN Reason: HYPOGLYCEMIA Levothyroxine Sodium (Synthroid) 25 mcg PO DAILY@0600 [facility] Last Admin: 04/13/19 06:01 Dose: 25 mcg Documented by: Losartan Potassium (Cozaar) 25 mg PO DAILY [facility] Last Admin: 04/13/19 07:52 Dose: 25 mg Documented by: Magnesium Hydroxide (Milk Of Magnesia) 30 ml PO DAILY PRN PRN PRN Reason: Constipation Metoprolol Succinate (Toprol Xl (Beta Zak)) 50 mg PO DAILY [facility] Last Admin: 04/13/19 07:52 Dose: 50 mg Documented by: Nitroglycerin (Nitrostat) 0.4 mg SUBLINGUAL Q5M PRN PRN Reason: CARDIAC/CHEST PAIN Ondansetron HCl (Zofran) 4 mg IV Q8H PRN PRN PRN Reason: NAUSEA/VOMITING Sodium Chloride () 10 - 40 ml IV UD PRN PRN Reason: Port-a-Cath (VAD) Flush Last Admin: 04/13/19 06:00 Dose: 40 ml Documented by: Sodium Chloride (0.9% Nacl (Sterile) Posiflush) 10 - 40 ml IV UD PRN PRN Reason: Port access or dressing change Medical Necessity - Tobacco Use Smoking Status: Former smoker Tobacco Use: Cigarettes Assessment/Plan All Active Problems (Last Updated 04/09/19 @ 08:12 by Verna Beltran MD) Pleural effusion due to CHF (congestive heart failure) (Acute) Diastolic CHF, acute on chronic (Acute) Pericardial effusion (Acute) This is a 68 years old male patient presented to the emergency room because of worsening shortness of breath and weakness, found to have increasing right pleural effusion complicated by acute on chronic hypercapnic and hypoxic respiratory failure and also found to have probable acute on chronic diastolic CHF. #1 acute on chronic hypercapnic and hypoxic respiratory failure: Remained stable, on 2 L of oxygen and BiPAP at night. Remains on IV diuresis, intermittent acetazolamide. Vital signs are stable. It is attributed to recurrent pleural effusions as well as probable acute CHF. Status post thoracentesis x2 and he has been on IV Lasix. Pulse ox is maintained at 2 L of oxygen, it is 96%. Patient is feeling better. 2D echocardiogram revealed stage I diastolic dysfunction, trivial to small pericardial effusion, global scintillating left ventricle consistent with amyloidosis, no mention of ejection fraction. Plan to continue same treatment, awaiting insurance approval for placement to alf facility. #2 recurrent right pleural effusion: Status post thoracentesis x2, total of 4 L of fluid taken out. Patient had thoracentesis back on December,, effusion seemed to be transudative. It is probably due to CHF and amyloidosis. He is on IV Lasix, continue BiPAP and oxygen as above. Nephrology recommended to start patient on Diamox to 50 mg p.o. daily and to hold Lasix upon discharge. For now, he will be on IV Lasix until discharge. #3 probable acute on chronic diastolic CHF: He is IV Lasix, and he is on metoprolol and losartan. 2D echocardiogram reviewed as above. His kidney function is stable. Plan as above. #4 hypertension: Blood pressure stable, continue metoprolol and losartan. #5 amyloidosis/plasma cell dyscrasia: Currently on treatment by oncology, appreciate oncology recommendations which was reviewed. Plan to follow-up with oncology in 1 week. #6 hypothyroidism: Continue levothyroxine. #7 nephrotic syndrome with proteinuria: Secondary to amyloidosis. Serum protein and albumin are low. Kidney function is stable. Nephrology recommended Diamox only upon discharge. #8 DVT prophylaxis: Subcu heparin. This note was generated with [employer] dictation software. It may contain incorrect words, spelling, and punctuation that were not noted in checking the note before signing. Code Visit Inpatient E&M: 39224 Subs Hosp L2
--- NOTE | 2019-04-13 10:24 | PCM.TXEXTCAR ---
- Diet 04/08/19 06:30 Diet: Cardiac/Low Cholesterol Is pt able to select menu?: No - Routine Orders/Code Status O2 Liters per Minute: 2 O2 Frequency: Continuous Keep PO Greater than or Equal to (%): 90 Code Status: Full Code - Wound(s) R back Wound Type: Puncture - Suggestions for Active Care Change Position every (hours): 3 Hours to sit in a chair: 2 Times a day to sit in chair: 3 - Therapies Weight Bearing: Weight bearing as tolerated Physical Therapy: Eval and Treat Occupational Therapy: Eval and Treat - Allergies/Procedures Done in Hospital Allergies/Adverse Reactions: Allergies No Known Allergies Allergy (Verified 04/07/19 16:47) - Type of Care/Length of Stay Estimated LOS: Convalescent Care Less Than 30 days Type of Care Needed: Skilled Rehab Potential: Fair Prognosis: Fair - Additional Orders/Day of Discharge Additional Orders: BIPAP, same current settings nightly. H&P will serve as current which was dated: 04/08/19 Day of Discharge: 04/13/19 - Dietary and Speech Recommendations Dietitian Recommendations/Changes: Suggest diet change to Cardiac/low sodium with 1500 ml fluid restriction; monitor need to restrict protein. Will d/c ensure enlive on medpass & offer ensure pudding BID with meals instead to limit fluid intake. - Follow Up Care Primary Care Physician: Grery Pate DO [Primary Care Provider] - Please follow up with your Primary Care Physician in: 2 week.. Please Follow Up With: Alek Crowder MD When: next week. Please Follow Up With: Amy Lemus DO When: 1 week. Please Follow Up With: Sudarshan Godoy MD When: 2-4 weeks.
--- NOTE | 2019-04-13 10:44 | PHA.DC.MR ---
Pharmacy Service has performed discharge medication reconciliation for this patient. Home Medications Acyclovir 400 mg PO DAILY 03/03/19 Levothyroxine Sodium 25 mcg PO DAILY@0600 03/03/19 Potassium Chloride [K-Dur] 40 meq PO DAILY 04/07/19 Metoprolol(XL)Succ [Toprol Xl (Beta Zak)] 50 mg PO DAILY 04/08/19 AcetaAZOLAMIDE [Diamox] 250 mg PO DAILY #30 tab 04/13/19 Losartan Potassium [Cozaar] 25 mg PO DAILY #30 tab 04/13/19 The patient's discharge medication list was reviewed for discrepancies and discrepancies were resolved.
--- NOTE | 2019-04-13 12:41 | PCM.PN.REN ---
Patient Problems: Active and Suspected Problems (Last Updated 04/09/19 @ 08:12 by Verna Beltran MD) Pleural effusion due to CHF (congestive heart failure) (Acute) Subjective: edema improved on iv lasix, diamox. Still with metabolic alkalosis, going to TCU for rehab. - Physical Exam Vitals/I&O's: Vital Signs Temp Pulse Resp BP Pulse Ox 97.4 F L 89 22 H 118/67 96 04/13/19 09:00 04/13/19 09:00 04/13/19 09:00 04/13/19 09:00 04/13/19 09:00 Oxygen Flow Rate (L/min) [4] 2 Oxygen Flow Rate (L/min) [3] 2 Oxygen Flow Rate (L/min) [2] 2 Oxygen Flow Rate (L/min) [1 ( 2 Initial Baseline)] Oxygen Flow Rate (L/min) 2 Oxygen Delivery Method [4] Nasal Cannula Oxygen Delivery Method [3] Nasal Cannula Oxygen Delivery Method [2] Nasal Cannula Oxygen Delivery Method [1 ( Nasal Cannula Initial Baseline)] Oxygen Delivery Method Nasal Cannula Weight: 94.1 kg Body Mass Index (BMI) 32.1 Intake and Output for Last 24 Hours 04/11/19 04/12/19 04/13/19 23:59 23:59 23:59 Intake Total 734 / 734 720 / 720 960 / 960 Output Total 3875 / 3875 3075 / 3075 1900 / 1900 Balance -3141 / -3141 -2355 / -2355 -940 / -940 General: Alert, Oriented x3, Cooperative, No apparent distress Lungs: Clear to auscultation Cardiovascular: Regular rate Abdomen: Bowel Sounds Present, Soft, Non Tender, Non-Distended, Obese Extremities: No edema Musculoskeletal: - - gen weakness Neurological: - - mild tremor upper extrem Psych/Mental Status: Normal Affect, Appropriate, Alert and oriented to time, place, person, mood and affect Laboratory Results 04/13/19 06:00: Sodium 139, Potassium 3.8, Chloride 95 L, Carbon Dioxide 44.0 H, BUN 30 H, Creatinine 0.88, Estim Creat Clear Calc 80.34, Est GFR (MDRD) Af Amer 110, Est GFR (MDRD) Non-Af 91, BUN/Creatinine Ratio 34.0 H, Glucose 88, Calcium 8.3 L, Phosphorus 2.8, Albumin 1.6 L Current Medications Acetaminophen (Tylenol) 650 mg PO Q6H PRN PRN PRN Reason: Pain Score 1-10/Temp > 100.7 F Acyclovir (Zovirax) 400 mg PO DAILY [facility] Last Admin: 04/13/19 07:52 Dose: 400 mg Documented by: Furosemide (Lasix) 40 mg IV Q8 [facility] Last Admin: 04/13/19 06:00 Dose: 40 mg Documented by: Glucagon () 1 mg IM .X1 PRN PRN Reason: Hypoglycemia Guaifenesin (Robitussin) 20 ml PO Q4H PRN PRN PRN Reason: COUGH Heparin Sodium (Beef Lung) () 50 units IV UD PRN PRN Reason: Port-a-Cath (VAD)Heparin Flush Dextrose (Dextrose 10%-Water) 250 mls @ 999 mls/hr IV .Q16M PRN; Protocol PRN Reason: HYPOGLYCEMIA Levothyroxine Sodium (Synthroid) 25 mcg PO DAILY@0600 [facility] Last Admin: 04/13/19 06:01 Dose: 25 mcg Documented by: Losartan Potassium (Cozaar) 25 mg PO DAILY [facility] Last Admin: 04/13/19 07:52 Dose: 25 mg Documented by: Magnesium Hydroxide (Milk Of Magnesia) 30 ml PO DAILY PRN PRN PRN Reason: Constipation Metoprolol Succinate (Toprol Xl (Beta Zak)) 50 mg PO DAILY [facility] Last Admin: 04/13/19 07:52 Dose: 50 mg Documented by: Nitroglycerin (Nitrostat) 0.4 mg SUBLINGUAL Q5M PRN PRN Reason: CARDIAC/CHEST PAIN Ondansetron HCl (Zofran) 4 mg IV Q8H PRN PRN PRN Reason: NAUSEA/VOMITING Sodium Chloride () 10 - 40 ml IV UD PRN PRN Reason: Port-a-Cath (VAD) Flush Last Admin: 04/13/19 06:00 Dose: 40 ml Documented by: Sodium Chloride (0.9% Nacl (Sterile) Posiflush) 10 - 40 ml IV UD PRN PRN Reason: Port access or dressing change Medical Necessity - Tobacco Use Smoking Status: Former smoker Tobacco Use: Cigarettes Assessment/Plan All Active Problems (Last Updated 04/09/19 @ 08:12 by Verna Beltran MD) Pleural effusion due to CHF (congestive heart failure) (Acute) Diastolic CHF, acute on chronic (Acute) Pericardial effusion (Acute) 1. 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 UPCR 1g/g. 2. SOB, bilateral pleural effusion s/p thoracentesis x2. continue with diuresis 3. metabolic alkalosis with respiratory acidosis due to hypoventilatory state, hypercapnea. Check ABG. Diamox 250mg po daily. 4. Anasarca continue diamox daily until alkalosis improved. Hold lasix for now Addendum: ABG continues to show hypercapnea, resp acidosis with compensatory metabolic alkalosis. Will continue with lasix and hold diamox.
--- NOTE | 2019-04-13 13:12 | DS.PCM_ITS ---
Discharge Date and Diagnosis - Problem List Patient Problems: Active and Suspected Problems (Last Updated 04/09/19 @ 08:12 by Verna Beltran MD) Debility (Acute) Weakness of both legs (Acute) Falls (Acute) Acute and chronic respiratory failure with hypercapnia (Acute) Acute on chronic diastolic heart failure (Acute) Date of Admission: 04/08/19 Date of Discharge: 04/13/19 - Primary Discharge Diagnosis Active and Suspected Problems (Last Updated 04/09/19 @ 08:12 by Verna Beltran MD) #1 acute on chronic hypoxic and hypercapnic respiratory failure. #2 recurrent right pleural effusion, status post thoracentesis x2. #3 acute on chronic diastolic CHF. #4 amyloidosis/plasma cell dyscrasia. #5 nephrotic syndrome with proteinuria. - Secondary Discharge Diagnosis Chronic Problems (Last Updated 04/09/19 @ 08:12 by Verna Beltran MD) Nephrotic syndrome (Chronic) Amyloidosis (Chronic) Diastolic CHF (Chronic) Proteinuria (Chronic) CHF (congestive heart failure) (Chronic) Essential (primary) hypertension (Chronic) Hospital Course and Treatment Imaging Results: Clinical Impression(s) from Imaging Studies Brain CT 04/08/19 00:28 IMPRESSION: 1. Negative for intracranial hemorrhage or acute intracranial disease. 2. Mild cerebral and cerebellar atrophy. Individualized dose optimization techniques were used for this CT. at 0240 Reported and signed by: Lele Martinez MD Electronically Signed: Lele Martinez, at 2:39 EST Tel , Service support , Chest X-Ray 04/08/19 00:28 IMPRESSION: 1. No significant change. 2. CHF with large right and small left pleural effusions. Secondary bibasilar passive atelectatic changes. at 0112 Reported and signed by: Lele Martinez MD Electronically Signed: Lele Martinez, at 1:11 EST Tel , Service support , Cervical Spine CT 04/08/19 00:30 IMPRESSION: 1. No fracture or acute osseous abnormality. 2. Cervical spine multilevel degenerative changes. 3. CT exam partly limited by motion artifact. 4. Bilateral pleural effusions, larger on the right. Individualized dose optimization techniques were used for this CT. at 0252 Reported and signed by: Lele Martinez MD Electronically Signed: Lele Martinez, at 2:51 EST Tel , Service support , Thoracentesis Ultrasound 04/08/19 10:04 IMPRESSION: Ultrasound-guided right thoracentesis. Electronically Signed: Rory Rosa, at 13:56 EST , Service support , Chest X-Ray 04/08/19 13:30 IMPRESSION: Status post right thoracentesis. There is no evidence of pneumothorax. Electronically Signed: Rory Rosa, at 13:55 EST , Service support , Chest X-Ray 04/08/19 22:40 IMPRESSION: 1. Recent right thoracentesis. No pneumothorax. 2. Right pleural effusion has reaccumulated and is now moderate to large in size. Secondary right basilar atelectatic changes. 3. Small left pleural effusion and left basilar atelectasis without significant change. at 2308 Reported and signed by: Lele Martinez MD Electronically Signed: Lele Martinez, at 23:07 EST Tel , Service support , Chest X-Ray 04/09/19 05:55 IMPRESSION: Progressive pleural parenchymal changes at the right lung base. Electronically Signed: Rory Rosa, at 8:11 EST , Service support , Chest X-Ray 04/10/19 08:11 IMPRESSION: Improved aeration of both lungs with decreased right pleural effusion. Persistent bilateral infiltrates. Electronically Signed: Rory Moe, at 8:39 EST , Service support , Thoracentesis Ultrasound 04/10/19 08:31 IMPRESSION: Ultrasound-guided right thoracentesis. Electronically Signed: Rory Moe, at 14:13 EST , Service support , Chest X-Ray 04/10/19 13:30 IMPRESSION: Status post right thoracentesis. There is no evidence of pneumothorax. Electronically Signed: Rory Moe, at 14:50 EST , Service support , Dr. Lemus, nephrology. Dr. Whitley, cardiology. Dr. Crowder/Dr. Ann, oncology. Dr. Godoy, pulmonology. Operations: None Procedures: 2-D Echocardiogram, EKG, Thoracentesis Summary of Care Provided: Patient seen and examined on the day of discharge and appeared to be stable to be discharged to retirement facility. Is respiratory status remained stable, remains on 2 L of oxygen and he has been tolerating BiPAP at night. His vital signs are stable. This is a 68 years old male patient presented to the emergency room because of worsening shortness of breath and weakness, found to have increasing right pleural effusion complicated by acute on chronic hypercapnic and hypoxic respiratory failure and also found to have probable acute on chronic diastolic CHF. #1 acute on chronic hypercapnic and hypoxic respiratory failure: Multifactorial attributed to recurrent pleural effusion and acute diastolic CHF. Status post thoracentesis x2. He was treated with IV Lasix for diuresis, BiPAP and intermittent IV acetazolamide. With treatment, respiratory status stabilized and patient remained on 2 L of oxygen and he tolerated BiPAP at night. Patient discharged to retirement facility in a stable medical condition, discharged on Lasix, BiPAP at night and with naps and discharged on oxygen at 2 L. #2 recurrent right pleural effusion: Status post thoracentesis x2, total of 4 L of fluid taken out. It is transudative effusion secondary to CHF and amyloidosis. Nephrology consulted and patient received intermittent dose of IV acetazolamide. Cardiology consulted and recommended to start patient on losartan. Patient discharged on Lasix for diuresis, plan to repeat chest x-ray in 4 weeks, follow-up with pulmonology in 2 to 3 weeks and patient may need Pleurx catheter placement if this effusion keep coming back. #3 acute on chronic diastolic CHF: Treated with IV Lasix, and he is on metoprolol and losartan. 2D echocardiogram reviewed as above. Patient discharged on Lasix 40 mg p.o. twice daily and plan to follow-up with cardiology. #4 hypertension: Blood pressure stable, continued on metoprolol and losartan. #5 amyloidosis/plasma cell dyscrasia: Currently on treatment by oncology, appreciate oncology recommendations which was reviewed. Plan to follow-up with oncology in 1 week after discharge and to start him back on chemotherapy. #6 hypothyroidism: Continued on levothyroxine. #7 nephrotic syndrome with proteinuria: Secondary to amyloidosis. Kidney function was stable. Patient received IV Lasix and acetazolamide. Upon discharge, nephrology recommended to discontinue acetazolamide and keep patient on Lasix 40 mg p.o. twice daily. Patient will follow-up with nephrology in 1 week. Patient discharged to retirement facility in a stable medical condition, discharged on Lasix 40 mg p.o. twice daily, losartan 25 mg p.o. daily discharged on BiPAP at night and with naps, on oxygen at 2 L, continued on his other previous home medications without any changes, plan to follow-up with nephrology in 1 week, follow-up with pulmonology in 2 to 4 weeks, follow-up with oncology in 1 week and recommended follow-up with PCP in 2 weeks. This note was generated with [employer] software. It may contain incorrect words, spelling, and punctuation that were not noted in checking the note before signing. Patient Problems: Active and Suspected Problems (Last Updated 04/09/19 @ 08:12 by Verna Beltran MD) Debility (Acute) Weakness of both legs (Acute) Falls (Acute) Acute and chronic respiratory failure with hypercapnia (Acute) Acute on chronic diastolic heart failure (Acute) - Physical Exam Vitals/I&O's: Vital Signs Temp Pulse Resp BP Pulse Ox 97.4 F L 89 22 H 118/67 96 04/13/19 09:00 04/13/19 09:00 04/13/19 09:00 04/13/19 09:00 04/13/19 09:00 Oxygen Flow Rate (L/min) [4] 2 Oxygen Flow Rate (L/min) [3] 2 Oxygen Flow Rate (L/min) [2] 2 Oxygen Flow Rate (L/min) [1 ( 2 Initial Baseline)] Oxygen Flow Rate (L/min) 2 Oxygen Delivery Method [4] Nasal Cannula Oxygen Delivery Method [3] Nasal Cannula Oxygen Delivery Method [2] Nasal Cannula Oxygen Delivery Method [1 ( Nasal Cannula Initial Baseline)] Oxygen Delivery Method Nasal Cannula Weight: 207 lb 7.28 oz Body Mass Index (BMI) 32.1 Intake and Output for Last 24 Hours 04/11/19 04/12/19 04/13/19 23:59 23:59 23:59 Intake Total 734 / 734 720 / 720 960 / 960 Output Total 3875 / 3875 3075 / 3075 1900 / 1900 Balance -3141 / -3141 -2355 / -2355 -940 / -940 General: Alert, Oriented x3, Cooperative, No apparent distress HEENT: Atraumatic, PERRLA, EOMI, Normocephalic Oral: Moist Mucosa, No Gingival or Mucosal Lesions/ Ulcerations Neck: Supple, No JVD, Negative Carotid Bruits, Trachea Midline, Thyroid Normal Size and Texture Lungs: Clear to auscultation, No wheeze, No rales, Diminished, - - Decreased breath sounds at the bases, otherwise clear. Cardiovascular: Regular rate, Regular Rhythm, Normal S1, Normal S2, PMI Normal Abdomen: Bowel Sounds Present, Soft, Non Tender, Non-Distended, No Hepato- splenomegaly Extremities: No clubbing, No cyanosis, No edema Skin: No rashes, No breakdown Lymphatic: No Cervical, Supraclavicular, or Inguinal Adenopathy Neurological: Cranial nerves II-XII grossly intact, Neuro grossly intact Psych/Mental Status: Normal Affect, Appropriate, Alert and oriented to time, place, person, mood and affect Laboratory Results 04/13/19 06:00: Sodium 139, Potassium 3.8, Chloride 95 L, Carbon Dioxide 44.0 H, BUN 30 H, Creatinine 0.88, Estim Creat Clear Calc 80.34, Est GFR (MDRD) Af Amer 110, Est GFR (MDRD) Non-Af 91, BUN/Creatinine Ratio 34.0 H, Glucose 88, Calcium 8.3 L, Phosphorus 2.8, Albumin 1.6 L Current Medications Acetaminophen (Tylenol) 650 mg PO Q6H PRN PRN PRN Reason: Pain Score 1-10/Temp > 100.7 F Acetazolamide (Diamox) 250 mg PO DAILY [facility] Acyclovir (Zovirax) 400 mg PO DAILY [facility] Last Admin: 04/13/19 07:52 Dose: 400 mg Documented by: Glucagon () 1 mg IM .X1 PRN PRN Reason: Hypoglycemia Guaifenesin (Robitussin) 20 ml PO Q4H PRN PRN PRN Reason: COUGH Heparin Sodium (Beef Lung) () 50 units IV UD PRN PRN Reason: Port-a-Cath (VAD)Heparin Flush Dextrose (Dextrose 10%-Water) 250 mls @ 999 mls/hr IV .Q16M PRN; Protocol PRN Reason: HYPOGLYCEMIA Levothyroxine Sodium (Synthroid) 25 mcg PO DAILY@0600 [facility] Last Admin: 04/13/19 06:01 Dose: 25 mcg Documented by: Losartan Potassium (Cozaar) 25 mg PO DAILY [facility] Last Admin: 04/13/19 07:52 Dose: 25 mg Documented by: Magnesium Hydroxide (Milk Of Magnesia) 30 ml PO DAILY PRN PRN PRN Reason: Constipation Metoprolol Succinate (Toprol Xl (Beta Zak)) 50 mg PO DAILY [facility] Last Admin: 04/13/19 07:52 Dose: 50 mg Documented by: Nitroglycerin (Nitrostat) 0.4 mg SUBLINGUAL Q5M PRN PRN Reason: CARDIAC/CHEST PAIN Ondansetron HCl (Zofran) 4 mg IV Q8H PRN PRN PRN Reason: NAUSEA/VOMITING Sodium Chloride () 10 - 40 ml IV UD PRN PRN Reason: Port-a-Cath (VAD) Flush Last Admin: 04/13/19 06:00 Dose: 40 ml Documented by: Sodium Chloride (0.9% Nacl (Sterile) Posiflush) 10 - 40 ml IV UD PRN PRN Reason: Port access or dressing change Home Medications: Medications to take at Discharge Acyclovir 400 mg PO DAILY 03/03/19 Levothyroxine Sodium 25 mcg PO DAILY@0600 03/03/19 Potassium Chloride [K-Dur] 40 meq PO DAILY 04/07/19 Metoprolol(XL)Succ [Toprol Xl (Beta Zak)] 50 mg PO DAILY 04/08/19 Furosemide [Lasix] 40 mg PO BID 04/13/19 Losartan Potassium [Cozaar] 25 mg PO DAILY 04/13/19 Primary Care Physician: Gerry Pate DO [Primary Care Provider] - Please follow up with your Primary Care Physician in: 2 week.. Please Follow Up With: Alek Crowder MD When: next week. Please Follow Up With: Amy Lemus DO When: 1 week. Please Follow Up With: Sudarshan Godoy MD When: 2-4 weeks. Disposition: Group Home facility Minutes spent on discharge:: 34 Patient Condition:: Stable Medical Necessity - Tobacco Use Smoking Status: Former smoker Tobacco Use: Cigarettes Meaningful Use Info Meaningful Use Diagnoses (Choose all that apply): CHF - CHF [place]/ARB ordered at discharge?: Yes Documented LVEF (%): 60 Code Visit Inpatient E&M: 20342 Disch Hosp
[2019-04-13 14:06] LABS: Base Excess 20 mmol/L (-2 to +2); Bicarbonate 45.6 mmol/L (22-26); Blood Gas Specimen Type ART; O2 Delivery Device Nasal Can; PO2 91 mmHG (75-100); SITE R Radial; SO2 96 % (95-99); Time Given 1405; Total Carbon Dioxide 48 mmol/L; pH 7.38 (7.35-7.45)
--- NOTE | 2019-04-13 14:09 | CPS ---
Results Core Texted to Dr Lemus. Dr Lemus was given this therapists phone number to call with any questions. Pt's nurse aware of results also
--- NOTE | 2019-04-13 14:13 | CPS ---
Received txt from Dr Lemus that she is aware of ABG results
--- NOTE | 2019-04-13 15:19 | CASEMGMT ---
Patient was approved to go to TCU. SW notified physician, patient, his significant other, area secretary, and RN. Manuela BURGER
--- NOTE | 2019-04-13 16:32 | NURSING ---
report called to Cassidy MEJÍA in TCU
--- NOTE | 2019-04-13 16:45 | PCM.PN.CARD ---
Subjectve: Patient has improved significantly. He is being transferred to rehab. Objective: Vital Signs Temp Pulse Resp BP Pulse Ox 97.8 F 84 20 H 112/65 96 04/13/19 15:05 04/13/19 15:05 04/13/19 15:05 04/13/19 15:05 04/13/19 15:05 Oxygen Flow Rate (L/min) [4] 2 Oxygen Flow Rate (L/min) [3] 2 Oxygen Flow Rate (L/min) [2] 2 Oxygen Flow Rate (L/min) [1 ( 2 Initial Baseline)] Oxygen Flow Rate (L/min) 2 Oxygen Delivery Method [4] Nasal Cannula Oxygen Delivery Method [3] Nasal Cannula Oxygen Delivery Method [2] Nasal Cannula Oxygen Delivery Method [1 ( Nasal Cannula Initial Baseline)] Oxygen Delivery Method Nasal Cannula Weight: 207 lb 7.28 oz Body Mass Index (BMI) 32.1 Intake and Output for Last 24 Hours 04/11/19 04/12/19 04/13/19 23:59 23:59 23:59 Intake Total 734 / 734 720 / 720 960 / 960 Output Total 3875 / 3875 3075 / 3075 1900 / 1900 Balance -3141 / -3141 -2355 / -2355 -940 / -940 General: Awake, Alert, Oriented x 3 HEENT: Atraumatic Oral: Moist Mucosa Neck: Supple Lungs: Clear to auscultation Cardiovascular: Normal S1, Normal S2 Abdomen: Soft Extremities: Bilateral Edema +1 Skin: No Rashes Psych/Mental Status: Appropriate 04/13/19 06:00: Sodium 139, Potassium 3.8, Chloride 95 L, Carbon Dioxide 44.0 H, BUN 30 H, Creatinine 0.88, Est GFR (MDRD) Af Amer 110, Est GFR (MDRD) Non-Af 91, BUN/Creatinine Ratio 34.0 H, Glucose 88, Calcium 8.3 L, Phosphorus 2.8 04/13/19 13:59: pH 7.38, Bicarbonate Actual 45.6 H, POC Total CO2 48, Base Excess 20 H, O2 Saturation 96, ABG pCO2 77.0 H*, ABG pO2 91 Rhythm: EKG: ECHO: Stress Test: Cardiac Cath: PCI: CT Surgery: Holter monitor: EPS: PPM: CXR: Chest CT Scan: Medical Necessity - Tobacco Use Smoking Status: Former smoker Tobacco Use: Cigarettes Assessment/Plan 1. CHF: Improved. Agree with resuming Lasix at 40 mg p.o. twice daily. Continue losartan and Toprol-XL as well 2. Atrial tachycardia: Patient has short runs of what appears to be atrial tachycardia on telemetry. Continue Toprol-XL. 3. Amyloidosis: There appears to be cardiac involvement as well. Patient continues to follow with oncology service and should follow-up with renal service as well.
== END 2019-04-13 16:39 | disposition skilled nursing facility (03) | DRG 291 ==
LOC: ED 04-08 03:27 → PCU 04-08 07:17
PROVIDERS: Internal Medicine Critical Care Medicine; Internal Medicine Hematology & Oncology; Internal Medicine Nephrology; Admitting Provider Internal Medicine; Emergency Provider Emergency Medicine; Family Provider Student in an Organized Health Care Education/Training Program; PCP Student in an Organized Health Care Education/Training Program; Visit Provider Hospitalist
DX: I11.0 Hypertensive heart disease with heart failure (principal); J96.21 Acute and chronic respiratory failure with hypoxia; J96.22 Acute and chronic respiratory failure with hypercapnia; J91.8 Pleural effusion in other conditions classified elsewhere; E85.81 Light chain (AL) amyloidosis; N04.9 Nephrotic syndrome with unspecified morphologic changes; I50.33 Acute on chronic diastolic (congestive) heart failure; Z99.81 Dependence on supplemental oxygen; E03.9 Hypothyroidism, unspecified; Z87.891 Personal history of nicotine dependence; R29.6 Repeated falls; Z79.899 Other long term (current) drug therapy; D75.9 Disease of blood and blood-forming organs, unspecified
CPT/HCPCS: 32555; 36591; 36600; 51702; 70450; 71045; 71046; 72125; 80048; 80053; 80069; 81001; 82570; 82803; 83735; 83880; 84100; 84156; 84484; 85025; 85610; 85730; 93005; 93306; 94002; 94003; 97110; 97116; 97162; 97166; 97530; 97535; 97802; 99251; 99285; A4216; G0463; J1940

== ENCOUNTER 2019-04-13 16:47 | Inpatient (IN) | payer MEDICARE, OTHER, SELFPAY ==
[2019-04-08 04:14] VITALS: BMI 32.1
[2019-04-13 17:12] VITALS: BP 116/73; PULSE 75; RESP 17; TEMP 36.8; O2SAT 93; BMI 29.9
--- NOTE | 2019-04-13 20:15 | PCM.HP.STD ---
Problem List (1) Debility Status: Acute (2) Weakness of both legs Status: Acute (3) Falls Status: Acute (4) Acute and chronic respiratory failure with hypercapnia Status: Acute (5) Acute on chronic diastolic heart failure Status: Acute (6) Hypertension Status: Chronic (7) Hypothyroidism Status: Chronic (8) Plasma cell dyscrasia Status: Chronic (9) Nephrotic syndrome Status: Chronic (10) Amyloidosis Status: Chronic History of Present Illness Date of Admission: 04/13/19 Chief Complaint: Here for rehabilitation, strengthening, prior to discharge home with . The patient is a 68 year old Male with below past medical history presented to [facility] 04/08/2019 with weakness. 04/08/2019 CT brain chronic involutional changes of brain. 04/08/2019 EKG sinus tachycardia, low voltage QRS, cannot rule out anteroseptal infarct, age undetermined. T wave abnormality, consider lateral ischemia. 04/08/2019 CT cervical spine multilevel degenerative changes, bilateral pleural effusions, larger on right. Generalized weakness, frequent falls. Amyloidosis, on chemotherapy. Difficulty walking, legs give out. Worsening shortness of breath, baseline 2 liters Oxygen per nasal cannula at home. Chest X-ray consistent with congestive heart failure, right pleural effusion. Elevated CO2, Troponin +/-, Lasix 80MG IV, Aspirin given. BiPAP applied. 04/08/2019 Admit to Hospital. Lasix 40MG Q8H for congestive heart failure. PT/OT for weakness, falls. 04/08/2019 Echo showed moderate left ventricular hypertrophy. Amyloidosis. Stage 1 diastolic dysfunction. 04/10/2019 Ultrasound guided thoracentesis removed 2 Liters of fluid. BiPAP, oxygen for acute on chronic respiratory failure with hypercapnia. IV Lasix, intermittent Diamox for CHF, pleural effusion. Dr. Lemus recommend Diamox in lieu of Lasix. 04/13/2019 Admit to TCU with debility, here for rehabilitation, strengthening, prior to discharge home with . Past Medical History Past Medical History (Chronic Problems): Chronic Problems (Last Updated 04/09/19 @ 08:12 by Verna Beltran MD) Hypertension (Chronic) Hypothyroidism (Chronic) Plasma cell dyscrasia (Chronic) Nephrotic syndrome (Chronic) Amyloidosis (Chronic) Diastolic CHF (Chronic) Proteinuria (Chronic) CHF (congestive heart failure) (Chronic) Essential (primary) hypertension (Chronic) Medical History: Medical History (Last Updated 04/09/19 @ 08:12 by Verna Beltran MD) Pericardial effusion (Acute) I31.3 Proteinuria (Chronic) R80.9 CHF (congestive heart failure) (Chronic) I50.9 Essential (primary) hypertension (Chronic) I10 Allergies No Known Allergies Allergy (Verified 04/07/19 16:47) Home Medications: Ambulatory Orders Medication Instructions Recorded Acyclovir 400 mg PO DAILY 03/03/19 Levothyroxine Sodium 25 mcg PO DAILY@0600 03/03/19 Potassium Chloride [K-Dur] 40 meq PO DAILY 04/07/19 Metoprolol(XL)Succ [Toprol Xl 50 mg PO DAILY 04/08/19 (Beta Zak)] Furosemide [Lasix] 40 mg PO BID 04/13/19 Losartan Potassium [Cozaar] 25 mg PO DAILY 04/13/19 Surgical History: Surgical History (Last Reviewed 03/03/19 @ 11:10 by Yimi Castro MD) History of open reduction and internal fixation (ORIF) procedure Z98.890 left foot Surgical History: no surgical history Psychiatric History: No pertinent psych hx Lives: Spouse/ Significant Other Smoking Status: Former smoker Tobacco Use: Non-smoker Alcohol: None Drugs: None - *Family History Maternal History Items: - - Mother patient unsure of the cause Paternal History Items: - - Patient not sure of father's cause of Review of Systems Constitutional: Reports: Weakness. Denies: Chills, Fever, Weight Change HEENT: Denies: Head Aches, Sinus Congestion, Sinus Drainage Cardiovascular: Denies: Chest Pain, Palpitations Respiratory: Denies: Cough, Shortness of breath at rest, Sputum production Gastrointestinal: Denies: Abdominal Pain, Nausea, Vomiting Genitourinary: Denies: Dysuria Musculoskeletal: Denies: Joint Pain, Joint Tenderness Skin: Denies: Rash, Wounds Neurological: Denies: Numbness, Tingling, Focal weakness Psychiatric: Denies: Anxiety, Depression, Homicidal Ideations, Suicidal Ideations Hematologic/ Lymphatic: Denies: Easy Bruising, Easy Bleeding VTE Information - Inpt Only VTE Present on Admission: No VTE Mechan Device Prophylaxis: Knee High PEGGY Hose VTE Pharm Prophylaxis ordered?: Yes Patient Problems: Active and Suspected Problems (Last Updated 04/09/19 @ 08:12 by Verna Beltran MD) Debility (Acute) Weakness of both legs (Acute) Falls (Acute) Acute and chronic respiratory failure with hypercapnia (Acute) Acute on chronic diastolic heart failure (Acute) - Physical Exam Vitals/I&O's: Vital Signs Temp Pulse Resp BP Pulse Ox 98.3 F 75 17 116/73 93 04/13/19 17:12 04/13/19 17:12 04/13/19 17:12 04/13/19 17:12 04/13/19 17:12 Oxygen Flow Rate (L/min) 2 Oxygen Delivery Method Nasal Cannula Weight: 92.193 kg Body Mass Index (BMI) 29.9 Intake and Output for Last 24 Hours 04/11/19 04/12/19 04/13/19 23:59 23:59 23:59 Intake Total 360 / 360 Balance 360 / 360 General: Alert, Oriented x3, Cooperative HEENT: Atraumatic, PERRLA, EOMI, Normocephalic Neck: Supple, No JVD, Negative Carotid Bruits Lungs: Clear to auscultation, Normal air movement Cardiovascular: Regular rate, No murmurs Abdomen: Bowel Sounds Present, Soft, Non Tender Extremities: No edema, Capillary Refill Less than 3 Seconds Skin: No rashes, No breakdown Musculoskeletal: No Tenderness to Palpation of Joints or Extremities Neurological: Cranial nerves II-XII grossly intact Psych/Mental Status: Normal Affect, Appropriate Current Medications Acyclovir (Zovirax) 400 mg PO DAILY COLLEEN Furosemide (Lasix) 40 mg PO BID COLLEEN Levothyroxine Sodium (Synthroid) 25 mcg PO DAILY@0600 COLLEEN Losartan Potassium (Cozaar) 25 mg PO DAILY COLLEEN Metoprolol Succinate (Toprol Xl (Beta Zak)) 50 mg PO DAILY [facility] Nutritional Formula (Lactose Free) (Ensure Enlive) 120 ml PO BID CLOLEEN Potassium Chloride (K-Dur) 40 meq PO DAILY COLLEEN Tuberculin PPD (Tubersol, Aplisol, Ppd) 5 tu ID X1 ONE Stop: 04/14/19 10:01 Tuberculin PPD (Tubersol, Aplisol, Ppd) 5 tu ID X1 ONE Stop: 04/21/19 10:01 Assessment/Plan All Active Problems (Last Updated 04/09/19 @ 08:12 by Verna Beltran MD) Pleural effusion due to CHF (congestive heart failure) (Acute) Debility (Acute) Weakness of both legs (Acute) Falls (Acute) Acute and chronic respiratory failure with hypercapnia (Acute) Acute on chronic diastolic heart failure (Acute) Diastolic CHF, acute on chronic (Acute) Pericardial effusion (Acute) 68 year old male with below past medical history significant for amyloidosis, hospitalized for acute on chronic respiratory failure with hypercapnia secondary to acute on chronic diastolic heart failure with pleural effusion requiring thoracentesis, admitted to TCU with debility, here for rehabilitation, strengthening, prior to discharge home with . Debility - PT/OT. Pain - Tylenol 1000MG Q6H PRN pain (1-10) Bowel - Miralax 17GM daily, Senna/colace 1 tablet BID, Dulcolax 10MG daily PRN. Adult immunization - Administer Prevnar 13, Pneumovax, Fluzone as appropriate. DVT prophylaxis - Lovenox 40MG SC daily. Antiviral prophylaxis - Acyclovir 400MG daily. Nutrition - Ensure Enlive 120ML BID. Chronic diastolic heart failure - Metoprolol succinate 50MG daily, Losartan 25MG daily, Lasix 40MG BID. Recurrent Pleural Effusion - Consider Pleurx catheter. Amyloidosis - Chemotherapy per Dr. Ann. Hypothyroidism - Levothyroxine 25MCG daily. Hypokalemia - K-Dur 40MEQ daily.
[2019-04-13 20:29] VITALS: O2SAT 96
[2019-04-13] MEDS: Furosemide 40 MG Tablet PO (21:07)
[2019-04-13 22:05] VITALS: PULSE 90; RESP 12; RESP 37; O2SAT 97
[2019-04-14 01:43] VITALS: PULSE 89; RESP 12; RESP 23; O2SAT 97
--- NOTE | 2019-04-14 01:43 | CPS ---
pt states not getting enough air-increased ipap to 16 and ipap to 8-pt pati well-nurse aware
[2019-04-14] MEDS: Enoxaparin 40 MG/0.4 ML Syringe SC (05:32)
[2019-04-14] MEDS: Levothyroxine 25 MCG TABLET PO (05:32)
[2019-04-14 05:33] VITALS: BP 115/74; PULSE 94
[2019-04-14] MEDS: Furosemide 40 MG Tablet PO ×2 (05:33→16:45)
[2019-04-14] MEDS: Losartan Potassium 25 MG Tablet PO (05:33)
[2019-04-14] MEDS: Metoprolol(XL)Succ 50 MG Tablet PO (05:33)
[2019-04-14] MEDS: Acyclovir 200 MG Capsule 400 MG PO (05:33)
[2019-04-14] MEDS: Nystatin Powder 15gm Bottle 1 APPLIC TOPICAL ×2 (05:39→21:04)
[2019-04-14] MEDS: Tuberculin,Purif.prot.deriv. 50 TU/ML Vial 5 ML ID (11:44)
--- NOTE | 2019-04-14 14:50 | CASEMGMT ---
Social Work Met with patient for initial assessment. Complete Palliative Medicine Screening Tool - pt would qualify for referral. Discussed patient's recent several hospitalizations, issues with CHF, respiratory failure, and weakness. Educated to Palliative Medicine - pt denied and stated I like coming to hospital to get things taken care of. Will continue to follow. Glenys Tsang, CHEF'S ASSISTANT BULK FLUIDS HANDLER
[2019-04-14 15:10] VITALS: O2SAT 97
[2019-04-14 15:42] VITALS: BP 104/68; PULSE 86; RESP 18; TEMP 36.7; O2SAT 97
[2019-04-14] MEDS: MELATONIN 10 MG TABLET PO (21:04)
[2019-04-14 23:03] VITALS: O2SAT 97
--- NOTE | 2019-04-14 23:03 | CPS ---
pt did not want to wear the bipap tonight-nurse aware
[2019-04-15 05:59] VITALS: BP 122/77; PULSE 102
[2019-04-15] MEDS: Furosemide 40 MG Tablet PO ×2 (05:59→16:38)
[2019-04-15] MEDS: Levothyroxine 25 MCG TABLET PO (05:59)
[2019-04-15] MEDS: Acyclovir 200 MG Capsule 400 MG PO (05:59)
[2019-04-15] MEDS: Metoprolol(XL)Succ 50 MG Tablet PO (05:59)
[2019-04-15] MEDS: Enoxaparin 40 MG/0.4 ML Syringe SC (05:59)
[2019-04-15] MEDS: Losartan Potassium 25 MG Tablet PO (06:00)
[2019-04-15] MEDS: Nystatin Powder 15gm Bottle 1 APPLIC TOPICAL ×2 (06:03→21:08)
[2019-04-15 08:00] VITALS: O2SAT 94
--- NOTE | 2019-04-15 08:00 | CPS ---
[facility] BiPAP unit removed from patient's room, per patient request.
--- NOTE | 2019-04-15 14:19 | PCM.PN.RX ---
<Lorena Pope - Last Filed: 04/15/19 14:19> Progress Note - Pharmacy Subjective: TCU Admission Objective: Allergies No Known Allergies Allergy (Verified 04/07/19 16:47) Current Medications Generic Name Dose Route Start Last Admin Trade Name Freq PRN Reason Stop Dose Admin Acetaminophen 1,000 mg 04/13/19 20:35 Tylenol PO Q6H PRN PRN Pain Score 1-10/10 Acyclovir 400 mg 04/14/19 06:00 04/15/19 05:59 Zovirax PO 400 mg DAILY COLLEEN Administration Bisacodyl 10 mg 04/13/19 20:36 Dulcolax PO DAILY PRN Constipation Enoxaparin Sodium 40 mg 04/14/19 06:00 04/15/19 05:59 Lovenox SC 40 mg DAILY@0600 COLLEEN Administration Furosemide 40 mg 04/13/19 18:00 04/15/19 05:59 Lasix PO 40 mg BID COLLEEN Administration Heparin Sodium (Beef Lung) 50 units 04/13/19 23:10 IV UD PRN Port-a-Cath (VAD)Heparin Flush Levothyroxine Sodium 25 mcg 04/14/19 06:00 04/15/19 05:59 Synthroid PO 25 mcg DAILY@0600 COLLEEN Administration Losartan Potassium 25 mg 04/14/19 06:00 04/15/19 06:00 Cozaar PO 25 mg DAILY COLLEEN Administration Melatonin 10 mg 04/14/19 22:00 04/14/19 21:04 Melatonin PO 10 mg QHS COLLEEN Administration Metoprolol Succinate 50 mg 04/14/19 06:00 04/15/19 05:59 Toprol Xl (Beta Zak) PO 50 mg DAILY COLLEEN Administration Nutritional Formula (Lactose Free) 120 ml 04/13/19 18:00 04/15/19 05:58 Ensure Enlive PO 120 ml BID COLLEEN Administration Nystatin 1 applic 04/14/19 06:00 04/15/19 06:03 Mycostatin Powder TOPICAL 1 applicatio 0600,2200 COLLEEN Administration Protocol Polyethylene Glycol 17 gm 04/14/19 06:00 04/15/19 05:59 Miralax PO Not Given DAILY COLLEEN Potassium Chloride 40 meq 04/14/19 06:00 04/15/19 06:00 K-Dur PO 40 meq DAILY COLLEEN Administration Senna/Docusate Sodium 1 tablet 04/14/19 06:00 04/15/19 05:59 Senokot-S, Lucita-Colace PO Not Given BID COLLEEN Sodium Chloride 10 - 40 ml 04/13/19 23:10 IV UD PRN Port-a-Cath (VAD) Flush Sodium Chloride 10 - 40 ml 04/13/19 23:10 0.9% Nacl (Sterile) Posiflush IV UD PRN Port access or dressing change Tuberculin PPD 5 tu 04/21/19 10:00 Tubersol, Aplisol, Ppd ID 04/21/19 10:01 X1 ONE Problem List (Last Updated 04/09/19 @ 08:12 by Verna Beltran MD) Debility (Acute) Weakness of both legs (Acute) Falls (Acute) Acute and chronic respiratory failure with hypercapnia (Acute) Acute on chronic diastolic heart failure (Acute) Hypertension (Chronic) Hypothyroidism (Chronic) Plasma cell dyscrasia (Chronic) Vital Signs Temp Pulse Resp BP Pulse Ox 98.0 F 102 H 18 122/77 H 94 04/14/19 15:42 04/15/19 05:59 04/14/19 15:42 04/15/19 05:59 04/15/19 08:00 Oxygen Flow Rate (L/min) 2 Oxygen Delivery Method Nasal Cannula Weight: 91.739 kg Body Mass Index (BMI) 29.9 Assessment/Plan: 1. Pain: acetaminophen 1000mg PO Q6H PRN pain (). Please continue to monitor for pain and PRN usage. *2. DVT prophylaxis: enoxaparin 40mg SC daily. Please continue to monitor renal function and for S/S of bleeding/DVT. Please consider D/C if platelets continue to decrease if clinically appropriate. Patient seems to have a lower baseline but they have dropped to 98 k/mm3 (04/10/2019). Thanks. 3. Antiviral prophyalxis: acyclovir 400mg PO daily. Please continue to monitor renal function and for S/S of a virus. 4. Chronic diastolic heart failure: metoprolol succinate 50mg PO daily, losartan 50mg PO daily, furosemide 40mg PO BID. Please continue to monitor HR, BP, renal function and electrolytes. 5. Hypothyroidism: levothyroxine 25mcg PO daily. Please continue to monitor for S/S of hypo/hyperthyroidism. 6. Hypokalemia: potassium chloride 40mEq PO daily. Please continue to monitor for hypo/hyperkalemia. 7. Insomnia: melatonin 10mg PO QHS. Please continue to monitor for insomnia and confusion. Psychotropic Medications: None Unnecessary Medications: None *Bowel Regimen: Miralax 17gm PO daily, senna/docusate 1T PO BID, bisacodyl 10mg PO daily PRN constipation. Patient has refused 2/2 doses of Miralax and 3/3 doses of senna/docusate. Please consider changing from scheduled to PRN constipation. Thanks. Date of Note:: 04/15/19 - Provider Comments Provider responsibility: Provider responsible to enter orders to implement recommendations <Abdifatah Alejo Chi - Last Filed: 04/15/19 17:16> Progress Note - Pharmacy Subjective: [] Objective: Allergies No Known Allergies Allergy (Verified 04/07/19 16:47) Current Medications Generic Name Dose Route Start Last Admin Trade Name Freq PRN Reason Stop Dose Admin Acetaminophen 1,000 mg 04/13/19 20:35 Tylenol PO Q6H PRN PRN Pain Score 1-10/10 Acyclovir 400 mg 04/14/19 06:00 04/15/19 05:59 Zovirax PO 400 mg DAILY COLLEEN Administration Bisacodyl 10 mg 04/13/19 20:36 Dulcolax PO DAILY PRN Constipation Enoxaparin Sodium 40 mg 04/14/19 06:00 04/15/19 05:59 Lovenox SC 40 mg DAILY@0600 COLLEEN Administration Furosemide 40 mg 04/13/19 18:00 04/15/19 16:38 Lasix PO 40 mg BID COLLEEN Administration Heparin Sodium (Beef Lung) 50 units 04/13/19 23:10 IV UD PRN Port-a-Cath (VAD)Heparin Flush Levothyroxine Sodium 25 mcg 04/14/19 06:00 04/15/19 05:59 Synthroid PO 25 mcg DAILY@0600 COLLEEN Administration Losartan Potassium 25 mg 04/14/19 06:00 04/15/19 06:00 Cozaar PO 25 mg DAILY COLLEEN Administration Melatonin 10 mg 04/14/19 22:00 04/14/19 21:04 Melatonin PO 10 mg QHS COLLEEN Administration Metoprolol Succinate 50 mg 04/14/19 06:00 04/15/19 05:59 Toprol Xl (Beta Zak) PO 50 mg DAILY COLLEEN Administration Nutritional Formula (Lactose Free) 120 ml 04/13/19 18:00 04/15/19 16:38 Ensure Enlive PO 120 ml BID COLLEEN Administration Nystatin 1 applic 04/14/19 06:00 04/15/19 06:03 Mycostatin Powder TOPICAL 1 applicatio 0600,2200 COLLEEN Administration Protocol Polyethylene Glycol 17 gm 04/14/19 06:00 04/15/19 05:59 Miralax PO Not Given DAILY COLLEEN Potassium Chloride 40 meq 04/14/19 06:00 04/15/19 06:00 K-Dur PO 40 meq DAILY COLLEEN Administration Senna/Docusate Sodium 1 tablet 04/14/19 06:00 04/15/19 16:39 Senokot-S, Lucita-Colace PO Not Given BID COLLEEN Sodium Chloride 10 - 40 ml 04/13/19 23:10 IV UD PRN Port-a-Cath (VAD) Flush Sodium Chloride 10 - 40 ml 04/13/19 23:10 0.9% Nacl (Sterile) Posiflush IV UD PRN Port access or dressing change Tuberculin PPD 5 tu 04/21/19 10:00 Tubersol, Aplisol, Ppd ID 04/21/19 10:01 X1 ONE Problem List (Last Updated 04/09/19 @ 08:12 by Verna Beltran MD) Debility (Acute) Weakness of both legs (Acute) Falls (Acute) Acute and chronic respiratory failure with hypercapnia (Acute) Acute on chronic diastolic heart failure (Acute) Hypertension (Chronic) Hypothyroidism (Chronic) Plasma cell dyscrasia (Chronic) Vital Signs Temp Pulse Resp BP Pulse Ox 98.0 F 102 H 18 122/77 H 94 04/14/19 15:42 04/15/19 05:59 04/14/19 15:42 04/15/19 05:59 04/15/19 08:00 Oxygen Flow Rate (L/min) 2 Oxygen Delivery Method Nasal Cannula Weight: 91.739 kg Body Mass Index (BMI) 29.9 Assessment/Plan: Psychotropic Medications: Unnecessary Medications: Bowel Regimen: - Provider Comments Provider responsibility: Provider responsible to enter orders to implement recommendations Provider Comments to Recommendations by Pharmacy: Agree
[2019-04-15 16:00] VITALS: BP 102/70; PULSE 84; RESP 17; TEMP 36.6; O2SAT 98
[2019-04-15] MEDS: MELATONIN 10 MG TABLET PO (21:07)
[2019-04-16] MEDS: Enoxaparin 40 MG/0.4 ML Syringe SC (06:09)
[2019-04-16 06:10] VITALS: BP 120/56; PULSE 99
[2019-04-16] MEDS: Losartan Potassium 25 MG Tablet PO (06:10)
[2019-04-16] MEDS: Furosemide 40 MG Tablet PO ×2 (06:10→18:02)
[2019-04-16] MEDS: Metoprolol(XL)Succ 50 MG Tablet PO (06:10)
[2019-04-16] MEDS: Acyclovir 200 MG Capsule 400 MG PO (06:10)
[2019-04-16] MEDS: Levothyroxine 25 MCG TABLET PO (06:10)
[2019-04-16] MEDS: Nystatin Powder 15gm Bottle 1 APPLIC TOPICAL ×2 (06:13→20:53)
[2019-04-16 08:46] VITALS: O2SAT 95
[2019-04-16 10:00] VITALS: PULSE 78; RESP 18
[2019-04-16 15:33] VITALS: PULSE 78; RESP 18; O2SAT 98
[2019-04-16 16:00] VITALS: BP 113/74; PULSE 93; RESP 30; TEMP 36.5; O2SAT 98
[2019-04-16] MEDS: MELATONIN 10 MG TABLET PO (20:51)
--- NOTE | 2019-04-16 21:47 | PCA ---
AIRPLANE FLIGHT ATTENDANT SUPERVISOR offered HS care and patient stated they already washed up in the morning and did not find it necessary to get cleaned up tonight.
--- NOTE | 2019-04-16 23:00 | NURSING ---
Pt requesting a coke and ice cream. This nurse educated pt on importance of fluid restriction and why it was prescribed for him. Educated him that he was already at his limit for the day. Pt stating I know about it but if I am thirsty I want something to drink. Pt still wanting a coke after lots of education.
[2019-04-17] MEDS: Losartan Potassium 25 MG Tablet PO (05:47)
[2019-04-17] MEDS: Furosemide 40 MG Tablet PO ×2 (05:47→16:34)
[2019-04-17] MEDS: Levothyroxine 25 MCG TABLET PO (05:47)
[2019-04-17] MEDS: Enoxaparin 40 MG/0.4 ML Syringe SC (05:47)
[2019-04-17] MEDS: Acyclovir 200 MG Capsule 400 MG PO (05:47)
[2019-04-17] MEDS: Nystatin Powder 15gm Bottle 1 APPLIC TOPICAL ×2 (05:48→20:09)
[2019-04-17 05:49] VITALS: BP 149/71; PULSE 100
[2019-04-17] MEDS: Metoprolol(XL)Succ 50 MG Tablet PO (05:49)
[2019-04-17 08:50] VITALS: O2SAT 98
--- NOTE | 2019-04-17 15:29 | CASEMGMT ---
Social Work Spoke with patient and S.O. about DC plans and scheduled chemo tx. Pt is requesting to DC home with S.O. 04/20. IDT agreeable as pt is mod I for all ADLs. Pt does not want HHC or outpatient therapy and is requesting rollator. Pt agreeable to rollator copay. Referral made to [facility]. Plan: DC home with S.O. 04/20 with no therapy, rollator Glenys Tsang, CLINIC OFFICE MANAGER OTR TANKER TRUCK DRIVER
--- NOTE | 2019-04-17 15:42 | PCM.DC ---
- Discharge Diagnoses Current Active Problems: Current Active and Chronic Problems (Last Updated 04/09/19 @ 08:12 by Verna Beltran MD) Debility (Acute) Weakness of both legs (Acute) Falls (Acute) Acute and chronic respiratory failure with hypercapnia (Acute) Acute on chronic diastolic heart failure (Acute) Hypertension (Chronic) Hypothyroidism (Chronic) Plasma cell dyscrasia (Chronic) You will use the following diet at home:: No restrictions, Regular Your food should be the consistency of: Regular Your liquids should be the consistency of: Regular/Thin Discharge Activity: Return to Normal Activity, May Shower, Use Walker Weight Bearing Status: Weight bearing as tolerated Call your doctor if you observe: Fever of 101 or Higher, Inability to urinate, Inability to have a bowel movement, Shortness of breath, Chest pain, Uncontrolled pain Allergies/Adverse Reactions: Allergies No Known Allergies Allergy (Verified 04/07/19 16:47) Medications to take at Discharge Acyclovir 400 mg PO DAILY 03/03/19 Levothyroxine Sodium 25 mcg PO DAILY@0600 03/03/19 Potassium Chloride [K-Dur] 40 meq PO DAILY 04/07/19 Metoprolol(XL)Succ [Toprol Xl (Beta Zak)] 50 mg PO DAILY 04/08/19 Furosemide [Lasix] 40 mg PO BID 04/13/19 Acetaminophen [Tylenol] 1,000 mg PO Q6H PRN PRN tablet 04/17/19 Losartan Potassium [Cozaar] 25 mg PO DAILY #30 tab 04/17/19 Mineral Oil/Petrolatum,White [Eucerin] 1 applic TOPICAL 0600,2200 jar 04/17/19 Nystatin Powder [Mycostatin Powder] 1 applic TOPICAL 0600,2200 bottle 04/17/19 The following prescriptions were given: Losartan Potassium [Cozaar] 25 mg PO DAILY #30 tab Transmission Status: Pending to [facility] Primary Care Physician: Gerry Pate DO [Primary Care Provider] - Please follow up with your Primary Care Physician in: 1 week. Test Results: Test results from this visit will be discussed in further detail at your follow-up appointment, if applicable. Please Follow Up With: Alek Crowder MD When: next week Please Follow Up With: Amy Lemus DO When: 1 week Please Follow Up With: Sudarshan Godoy MD When: 2-4 weeks Please Follow Up With: Gerry Pate MD, (PCP) Please Follow Up With: Alek Crowder MD Proposed Discharge Date: 04/20/19
--- NOTE | 2019-04-17 15:43 | DS.PCM_ITS ---
Discharge Date and Diagnosis - Problem List Patient Problems: Active and Suspected Problems (Last Updated 04/09/19 @ 08:12 by Verna Beltran MD) Debility (Acute) Weakness of both legs (Acute) Falls (Acute) Acute and chronic respiratory failure with hypercapnia (Acute) Acute on chronic diastolic heart failure (Acute) Date of Admission: 04/13/19 Date of Discharge: 04/20/19 - Primary Discharge Diagnosis Active and Suspected Problems (Last Updated 04/09/19 @ 08:12 by Verna Beltran MD) Debility (Acute) Weakness of both legs (Acute) Falls (Acute) Acute and chronic respiratory failure with hypercapnia (Acute) Acute on chronic diastolic heart failure (Acute) - Secondary Discharge Diagnosis Chronic Problems (Last Updated 04/09/19 @ 08:12 by Verna Beltran MD) Hypertension (Chronic) Hypothyroidism (Chronic) Plasma cell dyscrasia (Chronic) Nephrotic syndrome (Chronic) Amyloidosis (Chronic) Diastolic CHF (Chronic) Proteinuria (Chronic) CHF (congestive heart failure) (Chronic) Essential (primary) hypertension (Chronic) Hospital Course and Treatment Imaging Results: 04/13/19 17:37 Diet: Cardiac/Low Cholesterol Food consistency:: Regular Liquid Consistency:: Regular/Thin Dietary Modifications:: Fluid Restricted Diet Diet Comments: [id number] Operations: None Procedures: None Summary of Care Provided: The patient is a 68 year old Male with below past medical history significant for amyloidosis, hospitalized for acute on chronic respiratory failure with hypercapnia secondary to acute on chronic diastolic heart failure with pleural effusion requiring thoracentesis, admitted to TCU with debility, here for rehabilitation, strengthening, prior to discharge home with . Discharge home with . Patient Problems: Active and Suspected Problems (Last Updated 04/09/19 @ 08:12 by Verna Beltran MD) Debility (Acute) Weakness of both legs (Acute) Falls (Acute) Acute and chronic respiratory failure with hypercapnia (Acute) Acute on chronic diastolic heart failure (Acute) - Physical Exam Vitals/I&O's: Vital Signs Temp Pulse Resp BP Pulse Ox 97.7 F L 100 30 H 149/71 H 98 04/16/19 16:00 04/17/19 05:49 04/16/19 16:00 04/17/19 05:49 01/17/20 08:50 Oxygen Flow Rate (L/min) 2 Oxygen Delivery Method Nasal Cannula Weight: 92.986 kg Body Mass Index (BMI) 29.9 Intake and Output for Last 24 Hours 04/15/19 04/16/19 04/17/19 23:59 23:59 23:59 Intake Total 1660 / 1660 1010 / 1010 580 / 580 Output Total 425 / 425 600 / 600 Balance 1235 / 1235 410 / 410 580 / 580 Current Medications Acetaminophen (Tylenol) 1,000 mg PO Q6H PRN PRN PRN Reason: Pain Score 1-10/10 Acyclovir (Zovirax) 400 mg PO DAILY [facility] Last Admin: 04/17/19 05:47 Dose: 400 mg Documented by: Bisacodyl (Dulcolax) 10 mg PO DAILY PRN PRN Reason: Constipation Doxepin HCl (Sinequan) 25 mg PO QHS [facility] Enoxaparin Sodium (Lovenox) 40 mg SC DAILY@0600 [facility] Last Admin: 04/17/19 05:47 Dose: 40 mg Documented by: Furosemide (Lasix) 40 mg PO BID [facility] Last Admin: 04/17/19 05:47 Dose: 40 mg Documented by: Heparin Sodium (Beef Lung) () 50 units IV UD PRN PRN Reason: Port-a-Cath (VAD)Heparin Flush Levothyroxine Sodium (Synthroid) 25 mcg PO DAILY@0600 [facility] Last Admin: 04/17/19 05:47 Dose: 25 mcg Documented by: Losartan Potassium (Cozaar) 25 mg PO DAILY [facility] Last Admin: 04/17/19 05:47 Dose: 25 mg Documented by: Metoprolol Succinate (Toprol Xl (Beta Zak)) 50 mg PO DAILY [facility] Last Admin: 04/17/19 05:49 Dose: 50 mg Documented by: Multi-Ingredient Cream (Eucerin) 1 applic TOPICAL 0600,2200 [facility]; Protocol Last Admin: 04/17/19 05:48 Dose: 1 applicatio Documented by: Nystatin (Mycostatin Powder) 1 applic TOPICAL 0600,2200 [facility]; Protocol Last Admin: 04/17/19 05:48 Dose: 1 applicatio Documented by: Polyethylene Glycol (Miralax) 17 gm PO DAILY PRN PRN Reason: Constipation Potassium Chloride (K-Dur) 40 meq PO DAILY [facility] Last Admin: 04/17/19 05:47 Dose: 40 meq Documented by: Senna/Docusate Sodium (Senokot-S, Lucita-Colace) 1 tablet PO BID PRN PRN Reason: Constipation Sodium Chloride () 10 - 40 ml IV UD PRN PRN Reason: Port-a-Cath (VAD) Flush Sodium Chloride (0.9% Nacl (Sterile) Posiflush) 10 - 40 ml IV UD PRN PRN Reason: Port access or dressing change Tuberculin PPD (Tubersol, Aplisol, Ppd) 5 tu ID X1 ONE Stop: 04/21/19 10:01 Discharge Diet: No Restrictions Discharge Activity: Return to Normal Activity, May Shower, Use Walker Weight Bearing Status: Weight bearing as tolerated Call your doctor if you observe: Fever of 101 or Higher, Inability to urinate, Inability to have a bowel movement, Shortness of breath, Chest pain, Uncontr olled pain Home Medications: Medications to take at Discharge Acyclovir 400 mg PO DAILY 03/03/19 Levothyroxine Sodium 25 mcg PO DAILY@0600 03/03/19 Potassium Chloride [K-Dur] 40 meq PO DAILY 04/07/19 Metoprolol(XL)Succ [Toprol Xl (Beta Zak)] 50 mg PO DAILY 04/08/19 Furosemide [Lasix] 40 mg PO BID 04/13/19 Acetaminophen [Tylenol] 1,000 mg PO Q6H PRN PRN tablet 04/17/19 Losartan Potassium [Cozaar] 25 mg PO DAILY #30 tab 04/17/19 Mineral Oil/Petrolatum,White [Eucerin] 1 applic TOPICAL 0600,2200 jar 04/17/19 Nystatin Powder [Mycostatin Powder] 1 applic TOPICAL 0600,2200 bottle 04/17/19 Following Prescrptions Were Given to Patient: Losartan Potassium [Cozaar] 25 mg PO DAILY #30 tab Transmission Status: Pending to [facility] [place] #30 Primary Care Physician: Gerry Pate DO [Primary Care Provider] - Please follow up with your Primary Care Physician in: 1 week. Please Follow Up With: Alek Crowder MD When: next week Please Follow Up With: Amy Lemus DO When: 1 week Please Follow Up With: Sudarshan Godoy MD When: 2-4 weeks Please Follow Up With: Gerry Pate MD, (PCP) Please Follow Up With: Alek Crowder MD Disposition: Home Minutes spent on discharge:: 30 Patient Condition:: Stable Medical Necessity - Tobacco Use Smoking Status: Former smoker Tobacco Use: Non-smoker Meaningful Use Info Meaningful Use Diagnoses (Choose all that apply): None applicable
[2019-04-17 16:00] VITALS: BP 107/71; PULSE 89; RESP 24; TEMP 36.7; O2SAT 99
[2019-04-17] MEDS: Doxepin Hcl 25 MG Capsule PO (20:09)
[2019-04-18 05:35] VITALS: BP 142/82; PULSE 64
[2019-04-18] MEDS: Furosemide 40 MG Tablet PO ×2 (05:35→17:19)
[2019-04-18] MEDS: Metoprolol(XL)Succ 50 MG Tablet PO (05:35)
[2019-04-18] MEDS: Losartan Potassium 25 MG Tablet PO (05:35)
[2019-04-18] MEDS: Levothyroxine 25 MCG TABLET PO (05:37)
[2019-04-18] MEDS: Enoxaparin 40 MG/0.4 ML Syringe SC (05:37)
[2019-04-18] MEDS: Acyclovir 200 MG Capsule 400 MG PO (05:37)
[2019-04-18] MEDS: Nystatin Powder 15gm Bottle 1 APPLIC TOPICAL ×2 (05:42→20:45)
[2019-04-18 07:00] VITALS: O2SAT 95
[2019-04-18 07:55] VITALS: O2SAT 94
[2019-04-18 15:44] VITALS: BP 123/83; PULSE 98; RESP 18; TEMP 36.9; O2SAT 96
[2019-04-18] MEDS: Doxepin Hcl 25 MG Capsule PO (20:45)
[2019-04-19 05:38] VITALS: BP 138/82; PULSE 112
[2019-04-19] MEDS: Losartan Potassium 25 MG Tablet PO (05:38)
[2019-04-19] MEDS: Metoprolol(XL)Succ 50 MG Tablet PO (05:38)
[2019-04-19] MEDS: Enoxaparin 40 MG/0.4 ML Syringe SC (05:38)
[2019-04-19] MEDS: Levothyroxine 25 MCG TABLET PO (05:39)
[2019-04-19] MEDS: Furosemide 40 MG Tablet PO ×2 (05:39→16:38)
[2019-04-19] MEDS: Acyclovir 200 MG Capsule 400 MG PO (05:39)
[2019-04-19] MEDS: Nystatin Powder 15gm Bottle 1 APPLIC TOPICAL (06:06)
[2019-04-19 14:54] LABS: Mucous, Urine 0 SEEN /hpf (<or=2+); Red Blood Cells-Urine 0 SEEN /hpf (0-5); Squamous Epithelial Cells - UA 0 SEEN /hpf (0-5); White Blood Cells 0 SEEN /hpf (0-5)
[2019-04-19 15:07] LABS: Color, Urine Yellow (Yellow); Glucose, Dipstick Normal (Normal); Ketone-Dipstick Negative (Negative); Leukocyte Esterase-Dipstick Negative /ul (Negative); Nitrite-Dipstick Negative (Negative); Occult Blood-Urine Negative /ul (Negative); Protein-Dipstick 100 mg/dl (Negative); Urine Bilirubin Dipstick Negative (Negative); Urine Clarity Clear (Clear); Urine Urobilinogen 1 mg/dl (Normal)
[2019-04-19 15:13] LABS: Bacteria RARE /hpf (None Seen)
--- NOTE | 2019-04-19 15:45 | NURSING ---
Pt with increased confusion today. Stating that his doesn't want him to come home tomorrow, stating that he isn't ready, needs another week to work on his legs. LM for oncology social work. Pt also stating that the balloons in his room are his and getting up today without using the call light, safety precautions explained, PA in place. Updated KYM Malcolm, to update Dr. Alejo. N.O. to check UA. Cont to monitor. in room and aware of all.
[2019-04-19 16:00] VITALS: BP 113/75; PULSE 97; RESP 18; TEMP 36.7; O2SAT 93
[2019-04-19] MEDS: Doxepin Hcl 25 MG Capsule PO (19:48)
--- NOTE | 2019-04-20 00:05 | NURSING ---
Alarm sounding in patient room. This nurse into patient's room. Patient was found to be pushing portable O2 tank. When questioned why he was pushing the O2 tank patient states that he did not know why and didn't realize that it was O2 tank. Walker noted to be at the foot of patient's bed. Patient sitting on toilet. Reminded to use call light. This nurse stood outside of patient's bathroom and heard patient get up from toilet. This nurse into assist patient back to bed. Call light within reach. Patient states that he understands to use call light.
--- NOTE | 2019-04-20 02:25 | NURSING ---
Patient with call light on. This nurse into room to see what the patient needed. Patient states that he wants to sit on side of bed but needs me to turn off alarm so that it does not sound. Patient sitting on side of bed. Patient then helped to recliner at this time due to patient request. Feet elevated in recliner, call light within reach, orange juice given at this time per request.
[2019-04-20 04:27] VITALS: BP 134/98; PULSE 106; O2SAT 95
[2019-04-20] MEDS: Acyclovir 200 MG Capsule 400 MG PO (04:28)
[2019-04-20] MEDS: Enoxaparin 40 MG/0.4 ML Syringe SC (04:28)
[2019-04-20] MEDS: Losartan Potassium 25 MG Tablet PO (04:28)
[2019-04-20 04:29] VITALS: BP 134/98; PULSE 106
[2019-04-20] MEDS: Levothyroxine 25 MCG TABLET PO (04:29)
[2019-04-20] MEDS: Furosemide 40 MG Tablet PO ×2 (04:29→17:36)
[2019-04-20] MEDS: Metoprolol(XL)Succ 50 MG Tablet PO (04:29)
[2019-04-20] MEDS: Nystatin Powder 15gm Bottle 1 APPLIC TOPICAL ×2 (04:34→20:52)
--- NOTE | 2019-04-20 08:52 | CASEMGMT ---
Social Work Spoke with pt about DC - pt is not ready to DC. Physician ordered labs and testing and put DC on hold as well. Explained to pt insurance update on this date and continued stay is not guaranteed. Pt understands. Will continue to follow. Glenys Tsang, STAFF AIR DEFENSE OFFICER PHOTOGRAPHIC EQUIPMENT ASSEMBLER
[2019-04-20 09:20] LABS: Allen Test POS; Base Excess 22 mmol/L (-2 to +2); Bicarbonate 47.5 mmol/L (22-26); Blood Gas Specimen Type ART; O2 Delivery Device Nasal Can; PO2 82 mmHG (75-100); SITE L Radial; SO2 95 % (95-99); Time Given 911; Total Carbon Dioxide 50 mmol/L; pH 7.36 (7.35-7.45)
--- NOTE | 2019-04-20 09:23 | CPS ---
critical ABG results read to Gold MEJÍA
--- NOTE | 2019-04-20 09:51 | NURSING ---
Updated Dr. Alejo regarding ABG results, ordered to send pt to ED, pt transferred to ED at this time
[2019-04-20 09:54] LABS: Absolute Lymphocyte Count 0.63 X10^3/uL (0.83-4.51); Basophil# 0.02 X10^3/uL; Basophil% 0.3 % (0-1); Eosinophil# 0.05 X10^3/uL; Eosinophils% 0.8 % (0-5); Hematocrit 32.3 % (40-54); Hemoglobin 9.9 g/dL (13.0-16.5); Lymphocyte # 0.63 X10^3/ul (4.0); Lymphocyte % 10.5 % (19-41); Mean Corp Hgb Conc 30.7 g/dL (32-36); Mean Corpuscular Hgb 31.4 pg (27.0-32.0); Mean Corpuscular Volume 102.5 fL (80-94); Mean Platelet Vol. 10.8 fl (6.2-12.0); NRBC Flagged by Analyzer 0 % (0-5); Neutrophil # 5.01 X10^3/uL (2.7-7.7); Neutrophil % 83.2 % (47-70); Platelet Count 145 K/mm3 (150-450); RBC Distribution Width CV 13.3 % (11.6-14.6); RBC Distribution Width SD 50.3 fl (35.1-43.9); Red Blood Count 3.15 M/mm3 (4.6-6.2)
[2019-04-20 10:06] LABS: Anion Gap -3 (5-15); BUN 19 mg/dL (7-18); BUN/Creat Ratio 22.7 RATIO (10-20); Chloride 101 mmol/L (98-107); Creatinine, Serum 0.84 mg/dL (0.70-1.30); EST Glomerular Filtration Rate 97 mL/min (>60); Est Glom Filt Rate - Afr Amer 117 mL/min (>60); Estimated Creatinine Clearance 84.17 ml/min; Glucose 125 mg/dL (74-106); Potassium 4.7 mmol/L (3.5-5.1); Sodium Level 143 mmol/L (136-145)
--- NOTE | 2019-04-20 13:58 | NURSING ---
pt back to room from ER , report taken
--- NOTE | 2019-04-20 14:19 | NURSING ---
pt returned from ER at 1400
[2019-04-20 16:00] VITALS: BP 119/83; PULSE 95; RESP 24; TEMP 36.4; O2SAT 98
[2019-04-20] MEDS: Doxepin Hcl 25 MG Capsule PO (20:51)
[2019-04-20 21:05] VITALS: PULSE 92; RESP 15; RESP 20; O2SAT 96
[2019-04-21] VITALS (7 sets, daily range): BP systolic 110–118; BP diastolic 67–80; PULSE 88–101; RESP 15–35; TEMP 36.8; O2SAT 93–98
--- NOTE | 2019-04-21 02:01 | CPS ---
pt ripped bipap mask off and broke a piece off-pt placed back on bipap with new mask
[2019-04-21] MEDS: Acyclovir 200 MG Capsule 400 MG PO (04:42)
[2019-04-21] MEDS: Furosemide 40 MG Tablet PO ×2 (04:42→17:36)
[2019-04-21] MEDS: Levothyroxine 25 MCG TABLET PO (04:42)
[2019-04-21] MEDS: Losartan Potassium 25 MG Tablet PO (04:42)
[2019-04-21] MEDS: Enoxaparin 40 MG/0.4 ML Syringe SC (04:42)
[2019-04-21] MEDS: Metoprolol(XL)Succ 50 MG Tablet PO (04:42)
[2019-04-21] MEDS: Nystatin Powder 15gm Bottle 1 APPLIC TOPICAL ×2 (04:45→19:43)
[2019-04-21] MEDS: 0.9% Saline Lock 10 ML Syringe IV ×2 (04:48→17:36)
[2019-04-21 05:05] LABS: Absolute Lymphocyte Count 1.03 X10^3/uL (0.83-4.51); Basophil# 0.02 X10^3/uL; Basophil% 0.4 % (0-1); Eosinophil# 0.09 X10^3/uL; Eosinophils% 1.6 % (0-5); Hematocrit 31.5 % (40-54); Hemoglobin 9.8 g/dL (13.0-16.5); Lymphocyte # 1.03 X10^3/ul (4.0); Lymphocyte % 18.8 % (19-41); Mean Corp Hgb Conc 31.1 g/dL (32-36); Mean Corpuscular Hgb 31.9 pg (27.0-32.0); Mean Corpuscular Volume 102.6 fL (80-94); Mean Platelet Vol. 10.6 fl (6.2-12.0); Monocyte% 5.5 % (0-10); NRBC Flagged by Analyzer 0 % (0-5); Neutrophil # 4.04 X10^3/uL (2.7-7.7); Neutrophil % 73.5 % (47-70); Platelet Count 147 K/mm3 (150-450); RBC Distribution Width CV 13.5 % (11.6-14.6); RBC Distribution Width SD 51.2 fl (35.1-43.9); Red Blood Count 3.07 M/mm3 (4.6-6.2); White Blood Count 5.5 K/mm3 (4.4-11.0)
[2019-04-21 05:25] LABS: BUN 19 mg/dL (7-18); BUN/Creat Ratio 23.6 RATIO (10-20); Calcium,Total 8.6 mg/dL (8.5-10.1); Carbon Dioxide > 45.0 mmol/L (21.0-32.0); Chloride 99 mmol/L (98-107); EST Glomerular Filtration Rate 102 mL/min (>60); Est Glom Filt Rate - Afr Amer 123 mL/min (>60); Estimated Creatinine Clearance 88.38 ml/min; Glucose 87 mg/dL (74-106); Potassium 4.4 mmol/L (3.5-5.1); Sodium Level 143 mmol/L (136-145)
[2019-04-21] MEDS: Tuberculin,Purif.prot.deriv. 50 TU/ML Vial 5 ML ID (11:14)
--- NOTE | 2019-04-21 15:33 | NURSING ---
Sitting on side of bed and appears to be writing checks and addressing envelopes. Seems agitated and some confusion noted. states he's doing terrible. PLACING JUDGE in room earlier and tried to get him to put his bipap on. He refused at that time. This RN encourages him to do the same and he shakes his head no and states Im busy right now! I will put it on after I am done!.
--- NOTE | 2019-04-21 17:40 | NURSING ---
Complains of pain to top of nose when bipap in place. Duoderm placed to top of nose. Dr Alejo in room to speak with resident.
[2019-04-21] MEDS: Doxepin Hcl 25 MG Capsule PO (19:43)
--- NOTE | 2019-04-21 19:47 | NURSING ---
Pt with BIPAP on at this time.
[2019-04-22 00:42] VITALS: PULSE 97; RESP 15; RESP 33; O2SAT 97
[2019-04-22] MEDS: Enoxaparin 40 MG/0.4 ML Syringe SC (05:50)
[2019-04-22 05:51] VITALS: BP 115/80; PULSE 95
[2019-04-22] MEDS: Furosemide 40 MG Tablet PO ×2 (05:51→16:15)
[2019-04-22] MEDS: Levothyroxine 25 MCG TABLET PO (05:51)
[2019-04-22] MEDS: Metoprolol(XL)Succ 50 MG Tablet PO (05:51)
[2019-04-22] MEDS: Nystatin Powder 15gm Bottle 1 APPLIC TOPICAL ×2 (05:51→20:36)
[2019-04-22] MEDS: Acyclovir 200 MG Capsule 400 MG PO (05:51)
[2019-04-22] MEDS: Losartan Potassium 25 MG Tablet PO (05:51)
[2019-04-22] MEDS: 0.9% Saline Lock 10 ML Syringe IV ×2 (05:57→13:08)
[2019-04-22 07:04] VITALS: O2SAT 94
--- NOTE | 2019-04-22 11:10 | CASEMGMT ---
Social Work IDT met with patient for care plan meeting. Discussed patient's progress in therapy. Pt is min assist for LE dressing, SBA for toileting, walking 200 ft with FWW supervised, 15 steps with 2 HR CGA. Pt has chosen not to complete OT ADL, prefers males, and aide did provide shower to pt. Pt has been using bipap at night and tolerating it well. Explained insurance with [employer] 04/27, continued stay is not guaranteed and will provide 24 hour notice. Will continue to follow. Glenys Tsang, TOBACCO ROLLER VARNISH DIPPER
[2019-04-22 16:00] VITALS: BP 113/76; PULSE 93; RESP 18; TEMP 37.1; O2SAT 92
[2019-04-22] MEDS: Doxepin Hcl 25 MG Capsule PO (20:34)
--- NOTE | 2019-04-23 00:50 | NURSING ---
Addendum entered by Chana Chin 04/23/19 05:48: 0245- pt agreeable to wear BiPap and device reapplied. Original Note: 0050- pt refusing BiPap at this time. states I have to be up early for an appointment and I can't get any sleep with this thing on. PT educated on lab values and importance of using BiPap as ordered. Pt continues to refuse. Will monitor and continue to encourage BiPap use. PT states he will allow this RN to put BiPap back on after I get a little sleep.
[2019-04-23] MEDS: 0.9% Saline Lock 10 ML Syringe IV (05:39)
[2019-04-23 05:40] VITALS: BP 137/74; PULSE 86
[2019-04-23] MEDS: Metoprolol(XL)Succ 50 MG Tablet PO (05:40)
[2019-04-23] MEDS: Losartan Potassium 25 MG Tablet PO (05:40)
[2019-04-23] MEDS: Acyclovir 200 MG Capsule 400 MG PO ×2 (05:40→17:27)
[2019-04-23] MEDS: Enoxaparin 40 MG/0.4 ML Syringe SC (05:40)
[2019-04-23] MEDS: Furosemide 40 MG Tablet PO ×2 (05:40→17:26)
[2019-04-23] MEDS: Nystatin Powder 15gm Bottle 1 APPLIC TOPICAL ×2 (05:41→21:04)
[2019-04-23] MEDS: Levothyroxine 25 MCG TABLET PO (05:41)
--- NOTE | 2019-04-23 08:08 | MDS.RN ---
Information for the mds was obtained from review of the clinical record, interview of resident, staff, and direct observation of resident's care.
--- NOTE | 2019-04-23 08:52 | NURSING ---
son in law here to transport pt to appt with Dr Crowder @ 1402
--- NOTE | 2019-04-23 12:06 | NURSING ---
Addendum entered by Ann Marie Peña 04/23/19 14:36: pt returned from appt with orders for LT thoracentesis by US on 04/27/19 Original Note: pt still at appt with Dr Crowder, has not returned yet.
[2019-04-23 14:29] VITALS: O2SAT 92
[2019-04-23 16:00] VITALS: BP 91/55; PULSE 98; RESP 18; TEMP 36.7; O2SAT 96
[2019-04-23 19:50] VITALS: PULSE 92; O2SAT 97
[2019-04-23] MEDS: Doxepin Hcl 25 MG Capsule PO (21:03)
[2019-04-23 22:10] VITALS: PULSE 89; RESP 14; RESP 28; O2SAT 92
[2019-04-24 01:15] VITALS: PULSE 87; RESP 14; RESP 20; O2SAT 90
[2019-04-24 05:25] VITALS: O2SAT 92
[2019-04-24] MEDS: Furosemide 40 MG Tablet PO ×2 (05:38→16:55)
[2019-04-24] MEDS: 0.9% Saline Lock 10 ML Syringe IV (05:38)
[2019-04-24] MEDS: Acyclovir 200 MG Capsule 400 MG PO ×2 (05:38→16:55)
[2019-04-24] MEDS: Enoxaparin 40 MG/0.4 ML Syringe SC (05:38)
[2019-04-24 05:39] VITALS: BP 128/69; PULSE 82
[2019-04-24] MEDS: Metoprolol(XL)Succ 50 MG Tablet PO (05:39)
[2019-04-24] MEDS: Levothyroxine 25 MCG TABLET PO (05:39)
[2019-04-24] MEDS: Losartan Potassium 25 MG Tablet PO (05:39)
[2019-04-24] MEDS: Nystatin Powder 15gm Bottle 1 APPLIC TOPICAL ×2 (05:47→20:22)
[2019-04-24] MEDS: Allopurinol 300 MG Tablet PO (07:54)
--- NOTE | 2019-04-24 09:09 | PCA ---
Addendum entered by Ann Marie Peña 04/24/19 09:53: spoke with pt regarding locking up his money so that it does not get lost in laundry or misplaced. pt states he will give it to his when she comes in. explained to pt that would be a very good idea. he states he was wanting to pay for a WC, asked if he knew when it would be delivered and he had no idea. Original Note: assisted pt into shower, after shower pt assisted on putting the same clothing he had on before stating that those clothes were clean and put on the night before, i said ok and placed the clothes ontop of the clothes hamper. after shower pt rang and i assisted him on getting dressed pt put bottoms on and as he was putting his tshirt on pt asked where was his brown wallet with $800.00 in it i told pt i never saw a brown wallet when we took your clothing off right here is your tshirt i showed pt the tshirt pocket and how it had nothing but 23 cents in it, pt said well you better find it, you don't look like a thief but there are alot of people in [facility] who are. pt stated that i think it was in the robe thing i took off i lifted pts gown off of floor and checked the pockets, the brown wallet was in the pocket section of the gown i handed the wallet back to patient and asked him if he knew we offered to lock valuables up at switchboard, pt stated that he didn't want the wallet locked up and that he was paying for a wheelchair that was to be delivered. i did not open wallet to check on money KYM Jesus notified
[2019-04-24 16:00] VITALS: BP 97/58; PULSE 91; RESP 19; TEMP 36.4; O2SAT 84
[2019-04-24] MEDS: Doxepin Hcl 25 MG Capsule PO (20:22)
[2019-04-24 22:13] VITALS: PULSE 108; RESP 14; RESP 32; O2SAT 94
--- NOTE | 2019-04-24 22:14 | CPS ---
Pts. BiPAP mask strap was ripped in back. STICK INSERTER replaced mask with new one. FFM M BiPAP was given and placed on with comfort.
[2019-04-25 00:58] VITALS: PULSE 109; RESP 14; RESP 17; O2SAT 90
--- NOTE | 2019-04-25 03:33 | NURSING ---
0335 Patient had been on 2L NC for approximately 1.5 hours. Sat 97%
[2019-04-25 03:36] VITALS: PULSE 107; RESP 20; O2SAT 97
[2019-04-25] MEDS: Nystatin Powder 15gm Bottle 1 APPLIC TOPICAL ×2 (07:00→20:21)
[2019-04-25] MEDS: Losartan Potassium 25 MG Tablet PO (07:01)
[2019-04-25] MEDS: Acyclovir 200 MG Capsule 400 MG PO ×2 (07:02→17:17)
[2019-04-25] MEDS: Levothyroxine 25 MCG TABLET PO (07:02)
[2019-04-25] MEDS: Furosemide 40 MG Tablet PO ×2 (07:02→17:16)
[2019-04-25 07:03] VITALS: BP 134/76; PULSE 73
[2019-04-25] MEDS: Metoprolol(XL)Succ 50 MG Tablet PO (07:03)
[2019-04-25] MEDS: Enoxaparin 40 MG/0.4 ML Syringe SC (07:03)
[2019-04-25] MEDS: Allopurinol 300 MG Tablet PO (08:53)
[2019-04-25 14:31] VITALS: BP 121/76; PULSE 103; RESP 16; TEMP 36.8; O2SAT 97
[2019-04-25] MEDS: Doxepin Hcl 25 MG Capsule PO (20:22)
[2019-04-26] VITALS (7 sets, daily range): BP systolic 118–120; BP diastolic 68–73; PULSE 91–100; RESP 14–28; TEMP 36.8; O2SAT 94–100
--- NOTE | 2019-04-26 02:02 | NURSING ---
0200- pt refusing to wear BiPap anymore at this time. Educated on rationale for consistent use. Pt continues to refuse. 2L O2 applied.
[2019-04-26] MEDS: Metoprolol(XL)Succ 50 MG Tablet PO (05:17)
[2019-04-26] MEDS: Furosemide 40 MG Tablet PO ×2 (05:19→17:51)
[2019-04-26] MEDS: Nystatin Powder 15gm Bottle 1 APPLIC TOPICAL ×2 (05:19→20:39)
[2019-04-26] MEDS: Acyclovir 200 MG Capsule 400 MG PO ×2 (05:19→17:50)
[2019-04-26] MEDS: Losartan Potassium 25 MG Tablet PO (05:19)
[2019-04-26] MEDS: Enoxaparin 40 MG/0.4 ML Syringe SC (05:19)
[2019-04-26] MEDS: Levothyroxine 25 MCG TABLET PO (05:19)
[2019-04-26] MEDS: Allopurinol 300 MG Tablet PO (08:10)
[2019-04-26] MEDS: Doxepin Hcl 25 MG Capsule PO (20:40)
--- NOTE | 2019-04-26 21:40 | NURSING ---
2044- Pt was on 1L O2 at shift change, QM CONSULTANT reported SaO2 of 89%. O2 increase to home level of 2L. Rechecked at 2044 SaO2 94%. Pt aware to call RN to apply BiPap when ready for bed. Pt non-compliant with fluid restriction at times. Also has been non-compliant with use of call light before transfer. Pt educated on safety and plan of care. States understanding.
[2019-04-27] MEDS: Enoxaparin 40 MG/0.4 ML Syringe SC (05:29)
[2019-04-27] MEDS: Acyclovir 200 MG Capsule 400 MG PO ×2 (05:30→16:45)
[2019-04-27] MEDS: Furosemide 40 MG Tablet PO ×2 (05:30→16:44)
[2019-04-27] MEDS: Losartan Potassium 25 MG Tablet PO (05:30)
[2019-04-27] MEDS: Levothyroxine 25 MCG TABLET PO (05:30)
[2019-04-27 05:31] VITALS: BP 136/91; PULSE 103
[2019-04-27] MEDS: Metoprolol(XL)Succ 50 MG Tablet PO (05:31)
[2019-04-27] MEDS: Nystatin Powder 15gm Bottle 1 APPLIC TOPICAL ×2 (05:37→20:39)
[2019-04-27 07:24] VITALS: O2SAT 94
--- NOTE | 2019-04-27 08:25 | NURSING ---
Spoke with Juany, pt friend who usually goes to appts with pt but unable to this AM. Staff will assist pt to appt and back.
[2019-04-27] MEDS: Allopurinol 300 MG Tablet PO (08:28)
--- NOTE | 2019-04-27 09:27 | NURSING ---
pt off unit at this time to pulmonary appt via WC with staff assist.
--- NOTE | 2019-04-27 14:42 | NURSING ---
pt had small nose bleed following pt/ot. wiped nose and no active bleeding followed
[2019-04-27 16:00] VITALS: BP 90/61; PULSE 95; RESP 18; TEMP 36.4; O2SAT 97
[2019-04-27 16:47] VITALS: BP 101/62; PULSE 87; O2SAT 95
[2019-04-27 20:33] VITALS: PULSE 90; RESP 14; RESP 28; O2SAT 95
[2019-04-27] MEDS: Doxepin Hcl 25 MG Capsule PO (20:38)
[2019-04-27 23:20] VITALS: PULSE 90; RESP 14; RESP 21; O2SAT 95
[2019-04-28] MEDS: 0.9% Saline Lock 10 ML Syringe IV ×3 (04:36→07:01)
[2019-04-28] MEDS: Losartan Potassium 25 MG Tablet PO (04:36)
[2019-04-28] MEDS: Levothyroxine 25 MCG TABLET PO (04:38)
[2019-04-28] MEDS: Furosemide 40 MG Tablet PO ×2 (04:38→16:14)
[2019-04-28] MEDS: Acyclovir 200 MG Capsule 400 MG PO ×2 (04:39→16:13)
[2019-04-28] MEDS: Nystatin Powder 15gm Bottle 1 APPLIC TOPICAL (04:41)
[2019-04-28 04:44] VITALS: BP 119/80; PULSE 107; RESP 18; TEMP 36.6; O2SAT 94
[2019-04-28 04:46] VITALS: BP 119/80; PULSE 105
[2019-04-28] MEDS: Metoprolol(XL)Succ 50 MG Tablet PO (04:46)
[2019-04-28 06:16] LABS: International Normalized Ratio 1.1; Prothrombin Time (Protime)PT. 14.3 SECONDS (11.7-14.9)
[2019-04-28 06:17] LABS: Partial Thromboplast Time 30.1 Seconds (24.1-36.2)
[2019-04-28 06:19] LABS: Absolute Lymphocyte Count 0.78 X10^3/uL (0.83-4.51); Absolute Neutrophil Count 2.7 X10^3/uL (2.0-7.7); Basophil# 0.03 X10^3/uL; Basophil% 0.8 % (0-1); Eosinophil# 0.09 X10^3/uL; Eosinophils% 2.3 % (0-5); Hematocrit 29.2 % (40-54); Lymphocyte # 0.78 X10^3/ul (4.0); Lymphocyte % 20.1 % (19-41); Mean Corp Hgb Conc 30.8 g/dL (32-36); Mean Corpuscular Hgb 30.9 pg (27.0-32.0); Mean Corpuscular Volume 100.3 fL (80-94); Mean Platelet Vol. 12.1 fl (6.2-12.0); Monocyte# 0.29 X10^3/uL; Monocyte% 7.5 % (0-10); NRBC Flagged by Analyzer 0 % (0-5); Neutrophil # 2.69 X10^3/uL (2.7-7.7); Platelet Count 100 K/mm3 (150-450); RBC Distribution Width CV 13.2 % (11.6-14.6); RBC Distribution Width SD 49.1 fl (35.1-43.9); Red Blood Count 2.91 M/mm3 (4.6-6.2); White Blood Count 3.9 K/mm3 (4.4-11.0)
[2019-04-28 06:44] LABS: Anion Gap -1 (5-15); BUN 25 mg/dL (7-18); BUN/Creat Ratio 26.2 RATIO (10-20); Calcium,Total 8.4 mg/dL (8.5-10.1); Chloride 100 mmol/L (98-107); Creatinine, Serum 0.95 mg/dL (0.70-1.30); EST Glomerular Filtration Rate 83 mL/min (>60); Est Glom Filt Rate - Afr Amer 101 mL/min (>60); Estimated Creatinine Clearance 74.42 ml/min; Glucose 91 mg/dL (74-106); Potassium 4.6 mmol/L (3.5-5.1); Sodium Level 140 mmol/L (136-145); Uric Acid 5.1 mg/dL (3.5-7.2)
[2019-04-28 06:57] VITALS: O2SAT 95
[2019-04-28] MEDS: Allopurinol 300 MG Tablet PO (08:09)
--- NOTE | 2019-04-28 12:30 | RAD_ITS ---
STUDY: X-RAY CHEST REASON FOR EXAM: Male, 68 years old. POST THORA TECHNIQUE: AP inspiration and expiration views. COMPARISON: Comparison is made with prior study dated April 20, 2019. FINDINGS: A right-sided portacatheter is seen with the tip in the right atrium. The patient is status post right thoracentesis. There is no enhancing pneumothorax. Residual pleural parenchymal changes are seen at both lung bases. RAD/Chest Insp/Exp 2 View IMPRESSION: Status post right thoracentesis. There is no evidence of pneumothorax. Electronically Signed: Rory Rosa, at 12:53 EST , Service support ,
[2019-04-28 13:14] VITALS: BP 93/64; PULSE 88; RESP 18; TEMP 36.7; O2SAT 98
--- NOTE | 2019-04-28 14:18 | CASEMGMT ---
Addendum entered by Glenys Tsang 04/28/19 16:57: No precert needed for sleep study. Pt approved and agreed for sleep study tonight and son to picker / packer in the a.m. Original Note: Social Work Insurance issued LCD 04/27, DC 04/28. Spoke with pt and S.O. about DC date. Pt inquired about staying longer until dr's appt 04/30. Informed pt of right to remain and appeal, and private pay cost. Pt stated he cannot pay privately and agreed to DC home. Spoke with the sleep lab about scheduling sleep study. Availability tonight and tomorrow. [employer] Tractor Driver submitted for precert for sleep study - if received tonight, pt will DC to sleep study. Pt agreeable. Pt paid for [employer] and [employer] to deliver today. Pt declined further therapies. Will continue to follow. Glenys Tsang, TAO GHOTRA
--- NOTE | 2019-04-28 14:31 | NURSING ---
pt had thoracentesis done removing 2050ml, clear, light yellow fluid.
[2019-04-28 16:00] VITALS: BP 99/47; PULSE 84; RESP 18; TEMP 36.7; O2SAT 96
--- NOTE | 2019-04-28 16:36 | NURSING ---
pt being dc'd to sleep lab mariela, girlfriend here and reviewed all DC orders with both.
[2019-04-28 19:33] VITALS: BP 106/73; PULSE 87; RESP 18; TEMP 36.2; O2SAT 96
[2019-04-28] MEDS: Doxepin Hcl 25 MG Capsule PO (19:41)
--- NOTE | 2019-04-29 12:51 | NURSING ---
pt mentioned to radiology staff that he was not sent home with medications which he thought he was going to get, This RN called and spoke with pt and for clarification. reeducated regarding prescriptions which were written from the TCU and where to pick them up. pt and thankful for contacting and clarifying.
--- NOTE | 2019-04-29 15:53 | CASEMGMT ---
Social Work Reviewed and agreed with social work documentation on this date. Glenys Tsang, ONLINE COMMUNICATIONS SPECIALIST TECHNICAL SERVICE ENGINEER
== END 2019-04-28 19:50 | disposition home or self-care (01) | DRG 291 ==
PROVIDERS: Admitting Provider Family Medicine Geriatric Medicine; Family Provider Student in an Organized Health Care Education/Training Program; PCP Student in an Organized Health Care Education/Training Program; Referring Provider Family Medicine Geriatric Medicine; Visit Provider Family Medicine Geriatric Medicine
DX: I11.0 Hypertensive heart disease with heart failure (principal); J96.22 Acute and chronic respiratory failure with hypercapnia; E85.9 Amyloidosis, unspecified; N04.9 Nephrotic syndrome with unspecified morphologic changes; I50.33 Acute on chronic diastolic (congestive) heart failure; Z23 Encounter for immunization; E03.9 Hypothyroidism, unspecified; E87.6 Hypokalemia; D75.89 Other specified diseases of blood and blood-forming organs; R29.6 Repeated falls; Z87.891 Personal history of nicotine dependence
CPT/HCPCS: 36600; 71046; 80048; 81001; 82803; 84550; 85025; 85610; 85730; 90732; 94002; 94003; 97110; 97116; 97162; 97166; 97530; 97535; 97802; G0009; A4216

== ENCOUNTER 2019-04-20 09:50 | Emergency (ER) | payer OTHER, SELFPAY ==
[2019-04-13 17:12] VITALS: BMI 29.9
[2019-04-20 09:51] VITALS: BP 121/83; PULSE 103; RESP 37; TEMP 37; O2SAT 99; BMI 30.1
--- NOTE | 2019-04-20 09:58 | EKG12_ITS ---
Test Reason : Blood Pressure : / mmHG Vent. Rate : 098 BPM Atrial Rate : 098 BPM P-R Int : 134 ms QRS Dur : 082 ms QT Int : 360 ms P-R-T Axes : 037 -17 136 degrees QTc Int : 459 ms Normal sinus rhythm Anteroseptal infarct (cited on or before 09-JAN-2019) T wave abnormality, consider lateral ischemia ACUTE IL / STEMI Abnormal ECG Confirmed by GRANT FOWLER, ALEXIS ([id number]), video effects editor LISA MUNSON ([id number]) on 04/22/2019 9:55:52 AM Referred By: WAYNE Confirmed By:ALEXIS BURNS MD
--- NOTE | 2019-04-20 09:58 | RAD_ITS ---
STUDY: X-RAY CHEST REASON FOR EXAM: Male, 68 years old. TACHYPNEA, DYSPNEA, JVD, ABSENT BREATH SOUNDS RIGHT. AMS TECHNIQUE: Single AP portable view of the chest. COMPARISON: Comparison is made with prior examination dated April 10, 2019. FINDINGS: A right-sided portacatheter is seen with the tip in the right atrium. EKG electrodes are seen. Small right pleural effusion with consolidation in the right lower lobe. Blunting of the left cardiac phrenic angle with left basilar infiltrate. Normal size heart. Normal mediastinum and eric. Normal visualized pulmonary arteries. There is atherosclerotic tortuosity of the aortic arch and descending thoracic aorta. There are diffuse degenerative changes of the visualized thoracic spine. There is degenerative osteoarthritis of the bilateral shoulders. There is no demonstrated abnormality of the visualized soft tissue structures of the upper abdomen. RAD/Chest 1 View (Portable) IMPRESSION: Small right pleural effusion with underlying infiltration and/or atelectasis. Blunting of the left costophrenic angle with left basilar atelectasis and/or infiltrate. Electronically Signed: Rory Rosa, at 10:55 EST , Service support ,
--- NOTE | 2019-04-20 10:08 | ED.VIS.GEN ---
History of Present Illness Chief Complaint: Mental Status Change Detail of Chief Complaint: Patient unaware of some of his symptoms Informant: - - Report from TCU nurse Limited by: - - Change in mental status Onset: - - Past 24 hours Timing: Continuous Quality: Confusion Location: Generalized Current Severity: Mild Maximum Severity: Moderate Worsened by: Unknown, probably hypoxia Relieved by: Improved with oxygen Associated Symptoms: Patient denies any symptoms Narrative: Patient is a 68-year-old male with history of congestive heart failure who is presently a patient at the transitional care unit. He was sent down to the emergency department because of mental status change. He presently has no complaint of chest pain or shortness of breath. Nursing staff at the transitional care unit was concerned because his CO2 was 84. I was informed that he wanted to sign out this past weekend. His prohibited him from signing out. We will need to contact . 3 is very limited. Prior similar symptoms: Yes Recent Illness/Hospitalization: Yes Capacity - Capacity Assessment Tool Can the patient make a choice & communicate that choice?: No Can the patient understand benefits, risks and alternatives?: No Can the patient make a logical, rational choice?: No Is the choice the patient makes consistent w/ their values?: Unable to Determine Is there an impending, emergent risk to the patient?: No Is there a Surrogate Available?: No - Call was placed to by nursing staff. - Past Medical History (1) Acute and chronic respiratory failure with hypercapnia Status: Acute (2) Debility Status: Acute (3) Weakness of both legs Status: Acute (4) Hypertension Status: Chronic (5) Hypothyroidism Status: Chronic (6) Plasma cell dyscrasia Status: Chronic (7) Pericardial effusion Status: Acute (8) Pleural effusion due to CHF (congestive heart failure) Status: Acute (9) Amyloidosis Status: Chronic (10) CHF (congestive heart failure) Status: Chronic (11) Proteinuria Status: Chronic Past Medical History - Allergies and Home Meds Allergies/Adverse Reactions: Allergies No Known Allergies Allergy (Verified 04/20/19 09:55) Primary Care Physician: Gerry Pate DO [Primary Care Provider] - Prior records reviewed: Yes Surgical History: no surgical history Lives: Spouse/ Significant Other Smoking Status: Former smoker Alcohol: None Drugs: None - Family History Maternal Family History: Reports: - - Mother patient unsure of the cause Paternal Family History: Reports: - - Patient not sure of father's cause of Review of Systems ROS: Unable to Obtain - He also states there is water around my heart . Physical Exam Vital Signs/Narrative: Vital Signs Temp Pulse Resp BP Pulse Ox 04/20/19 09:51 98.6 F 103 H 37 H 121/83 H 99 Inital Vital Signs reviewed: Yes General: Well nourished, Well developed, Acute Distress Head: Normocephalic, Atraumatic Eyes: Perrl, EOMI, Pale conjunctiva. Negative for: Scleral icterus ENT: No rhinorrhea, TM's clear Neck: Supple, Nontender, No lymphadenopathy. Negative for: No JVD - Patient has JVD to the angle of the mandible at 90 degrees Cardiovascular: Regular rhythm, No murmurs, Normal S1, Normal S2, Tachycardia Respiratory: Negative for: No distress, Chest nontender, - - Breath sounds are absent on the right. There is dullness to percussion on the right. Abdomen: Soft, Nontender, Nondistended, Normal bowel sounds Back: Nontender, Normal Inspection Extremities: Nontender, Tenderness - Bilateral pitting edema 6 mm Skin: Negative for: No rash, Cyanosis, Diaphoresis, Jaundice, Pallor Neurological: Alert, Cranial nerves II-XII grossly intact, Normal Sensation. Negative for: Oriented x3, Normal Strength Psychological: Normal affect Diagnostic/Tx/Re-eval Chest X-Ray - ED: 1 View, Read by ED Physician, - - A small pleural effusion on the left. There is discoid atelectasis left lower lobe. There appears to be an infiltrate on the right. This has not improved since prior x-ray dated April 10, 2019. There is possibly a small effusion. X-ray is limited secondary to the fact that is portable and the inspiratory volume is suboptimal. There may be a small effusion on the right. There is no significant change since April 10, 2019 Impressions Chest X-Ray 04/20/19 09:58 IMPRESSION: Small right pleural effusion with underlying infiltration and/or atelectasis. Blunting of the left costophrenic angle with left basilar atelectasis and/or infiltrate. Electronically Signed: Rory Rosa, at 10:55 EST , Service support , 04/20/19 09:58 Chest 1 View (Portable) [RAD] Stat Laboratory Results 04/20/19 04/20/19 04/20/19 10:10 10:10 10:10 PT 14.7 INR 1.2 Troponin I 0.045 B-Natriuretic Peptide 751.9 H Troponin is normal. BNP is elevated consistent with heart failure. Since patient is requiring more oxygen and there is evidence of congestive heart failure will contact hospitalist for admission. Doubt the abnormality right lower lung is an infiltrate. Suspect this is interstitial infiltrates secondary to congestive heart failure. Since patient is clinically fluid overloaded will treat with Lasix. - Rhythm Strip Rhythm Strip: Sinus Rhythm Rate: 105 Ectopy: None - EKG Initial EKG Interpretation: Sinus Rhythm - Normal sinus rhythm with a ventricular rate of 98. [place] interval is 134 ms. QRS duration 82 ms. QT duration 360 ms. There is J-point elevation in leads V2 through V3. There is no reciprocal ischemic changes. The ST segment is concave and not convex. The computer is reading acute [place]. I am in disagreement. There is flipped T waves noted in lead I, aVL and V6. - Medical Decision Making Is were obtained this morning. Results are available revealed an H&H of 9.9 and 32.3. Blood gas reveals and hypoxia. pH is 7.36, PaO2 is 82, PCO2 is 84, bicarb is 47.5 with a base excess of +22. Saturation is 95%. The ABG was obtained on 2 L with an IPF 12 and an EEP of 6. Suspect patient has a large pleural effusion on the right. Chest x-ray was obtained to confirm. A troponin and BNP were obtained and will compared to prior labs. Since he is not oriented and does not have the capacity to make a medical decision. Call was placed to . We will treat for congestive heart failure. Case was discussed with the hospitalist, Dr. Beltran. He cared for patient last week. He contacted Dr. Godoy. It was determined patient not been using his BiPAP. He is in agreement patient has chronic CO2 retention. Issue is noncompliance. He informed me that after speaking with Dr. Sudarshan Godoy there is nothing to offer from an acute care setting. I asked the charge nurse to contact his to discuss CODE STATUS. Charge nurse was able to contact and speak with Mr. Moss's . She informed us that he fell 2 weeks ago and hit his head. He has had some change in behavior she believes since then. Reviewing old records indicates that patient has not had a CAT scan. Will obtain a CAT scan to rule out intracranial bleed. CT of the head was reviewed by me and interpreted by radiologist as negative for intracranial bleed. Patient was informed the need for him to wear his BiPAP especially if he would like to be able to go back home. ED Disposition - Plan for ED Patient: Disposition: Acute Care Hospital [facility] Diagnosis: Acute on chronic respiratory failure with hypoxia and hypercapnia, Acute exacerbation of congestive heart failure, Change in mental status, Closed head injury Instructions: CHF, General Referrals: Gerry Pate DO [Primary Care Provider] -
[2019-04-20 10:12] VITALS: O2SAT 98
[2019-04-20 10:46] LABS: BNP,B-Type NATRIURETIC PEPTIDE 751.9 pg/mL (0-100)
[2019-04-20 10:49] LABS: International Normalized Ratio 1.2; Prothrombin Time (Protime)PT. 14.7 SECONDS (11.7-14.9)
[2019-04-20 11:10] VITALS: BP 139/74; PULSE 98; RESP 31; O2SAT 97
[2019-04-20] MEDS: Furosemide 40 MG/4 ML Vial IV (11:16)
[2019-04-20 11:30] VITALS: BP 159/63; PULSE 98; O2SAT 96
--- NOTE | 2019-04-20 12:45 | CT_ITS ---
STUDY: CT BRAIN WITHOUT CONTRAST REASON FOR EXAM: Male, 68 years old. ALTERED MENTAL STATUS, FALL RADIATION DOSAGE (If Supplied By Facility): CTDIvol = ( 44.99 ) mGy, DLP = ( 745.49 ) mGycm TECHNIQUE: Transaxial CT imaging of the brain was performed without administration of intravenous contrast material. Individualized dose optimization techniques were used for this CT. COMPARISON: Comparison is made with prior examination dated April 08, 2019. FINDINGS: Normal soft tissue structures. Normal calvarium. There is mild cerebral atrophy with widening of the extra-axial spaces and ventricular dilatation. Normal white matter tracts of the cerebral hemispheres. Normal basal ganglia and thalami. Normal brainstem. There is mild cerebellar atrophy. There is no intracranial hemorrhage. There are no findings of an acute ischemic infarction. Normal visualized paranasal sinuses. CT/Brain/Head without Contrast IMPRESSION: Chronic involutional changes of the brain. Electronically Signed: Rory Rosa, at 13:10 EST , Service support ,
[2019-04-20 13:08] VITALS: BP 122/89; PULSE 89; RESP 23; O2SAT 96
--- NOTE | 2019-04-20 13:41 | ED.RN ---
pt returning to TCU. report called to manoj smith in tcu. arnav levi, [id number]
[2019-04-20 13:54] VITALS: BP 126/96; PULSE 98; RESP 16; O2SAT 96
== END 2019-04-20 14:23 | disposition skilled nursing facility (03) ==
PROVIDERS: Emergency Provider Emergency Medicine; PCP Student in an Organized Health Care Education/Training Program
DX: J96.21 Acute and chronic respiratory failure with hypoxia (principal); J96.22 Acute and chronic respiratory failure with hypercapnia; S09.90XA Unspecified injury of head, initial encounter; I11.0 Hypertensive heart disease with heart failure; I50.9 Heart failure, unspecified; E03.9 Hypothyroidism, unspecified; Z87.891 Personal history of nicotine dependence; W19.XXXA Unspecified fall, initial encounter; Y93.9 Activity, unspecified; Y92.89 Other specified places as the place of occurrence of the external cause; Y99.9 Unspecified external cause status
CPT/HCPCS: 36591; 70450; 71045; 83880; 84484; 85610; 93005; 96361; 96374; 99283; A4216; J1940

== ENCOUNTER → 2019-04-27 13:13 | Outpatient (CLI) | payer OTHER, SELFPAY ==
[2019-04-20 09:51] VITALS: BMI 30.1
--- NOTE | 2019-04-28 10:02 | PFT ---
INTRODUCTION: The patient is a 68-year-old male that presents for pulmonary function studies secondary to a diagnosis of shortness of breath. Respiratory therapy reports good patient effort. Bronchodilators were used during testing. INTERPRETATION: Forced expiration spirometry demonstrates no evidence of a large airways obstructive ventilatory defect. There was no significant response to aerosolized bronchodilators, based upon strict ATS criteria. Spirograms are of fair quality and plateau gradually indicating slow emptying of the lungs. Body plethysmography was performed and reveals a decreased TLC to 3.69 L, 59% of predicted, indicative of a severe restrictive ventilatory impairment. The remainder of the lung volumes are symmetrically reduced. Diffusing capacity by single breath CO is mildly reduced at 64% of predicted. IMPRESSION: Severe restrictive ventilatory impairment with mild reduction in diffusing capacity.
== END ==
PROVIDERS: PCP Student in an Organized Health Care Education/Training Program; Referring Provider Family Medicine Geriatric Medicine; Visit Provider Family Medicine Geriatric Medicine
DX: R06.02 Shortness of breath (principal)
CPT/HCPCS: 94060; 94726; 94729

== ENCOUNTER → 2019-04-28 10:57 | Outpatient (CLI) | payer OTHER, SELFPAY ==
[2019-04-20 09:51] VITALS: BMI 30.1
[2019-04-28 11:00] VITALS: PULSE 100; PULSE 101; PULSE 87; PULSE 91; PULSE 95; PULSE 98; O2SAT 101; O2SAT 86; O2SAT 91; O2SAT 93; O2SAT 96; O2SAT 98
--- NOTE | 2019-04-28 11:36 | US_ITS ---
PROCEDURE: ULTRASOUND GUIDED THORACENTESIS. DATE: April 28, 2019. INDICATION: Male, 68 years old. Right pleural effusion. PHYSICIAN: Rory Rosa M.D. PROCEDURE: The risks, benefits, and alternatives to the procedure were explained to the patient. The specific risks of bleeding, infection, and pneumothorax requiring chest tube insertion were discussed and accepted. Written informed consent was obtained. Ultrasonographic evaluation of the right lower pleural space was carried out. An adequate pocket was identified. The patient was placed in the sitting, upright position. The overlying skin was prepped and draped in sterile fashion. 1% lidocaine was administered subcutaneously for local anesthesia. Under ultrasound guidance, a 5 Maori thoracentesis needle/catheter system was advanced into the right posterior lower pleural fluid collection. Approximately 2050 mL of kai-colored fluid fluid was drained. The catheter was removed, and a sterile dressing was applied. The patient tolerated the procedure well. A chest x-ray was ordered. US/Thoracentesis W US IMPRESSION: Ultrasound-guided right thoracentesis. Electronically Signed: Rory Rosa, at 13:06 EST , Service support ,
--- NOTE | 2019-04-28 11:41 | CPS ---
Patient arrived on 1L from TCU, Patient's RA SpO2 was good 93-95%. Pulse Ox signal was hard to get, multiple pulse oxs tried, but a good signal was achieved to begin test. It wasn't until the 4 min daniella when the signal was questionable. Pulse ox was 72-86% with variable HR. 3 different pulse ox tried with multiple fingers tried as well. Patient did not feel SOB, but pulse ox was still low for many minutes remaining. 2L applied and the rest of the test continued on 2L. Patient has delayed capillary refill, and poor perfusion. Jeb DIRECTOR SPEECH
[2019-04-28 12:09] VITALS: BP 106/70; BP 109/79; BP 112/71; BP 96/46; PULSE 83; PULSE 86; PULSE 87; RESP 18; RESP 20; O2SAT 95; O2SAT 96; O2SAT 97
--- NOTE | 2019-04-29 12:22 | NURSING ---
pt concerned that he did not get his home meds returned from a recent visit on TCU, I called and talked with the executive secretary social welfare and she took his name and number and will look into this and call him today.
--- NOTE | 2019-04-29 14:23 | PCM.PSN.6M ---
PSN 6 Minute Walk Test - 6 Minute Walk Test 6 Minute Walk Test: 6 Minute Walk Test PSN:6-Minute Walk Test Start: 04/28/19 11:39 Freq: Status: Active Protocol: [id number].6MINW Document 04/28/19 11:00 JOSELIN (Rec: 04/28/19 11:52 JLA [id number]) 6 Minute Walk Test Date Performed 04/28/19 Time Performed 11:00 Height 5 ft 9 in Weight: 204 lb Weight in Pounds 204.[address]: Lavern Robles Assistive device used: Walker Pre-test Oxygen Delivery Method Room Air Pulse Ox (%) 93 Pulse Rate (60-100 beats/min) 87 Dyspnea Robinson Scale (0-10) 0 Exertion Robinson Scale (6-20) 6 1st minute Oxygen Delivery Method Room Air Pulse Ox (%) 91 Pulse Rate (60-100 beats/min) 95 2nd minute Oxygen Delivery Method Room Air Pulse Ox (%) 91 Pulse Rate (60-100 beats/min) 101 H 3rd minute Oxygen Delivery Method Room Air Pulse Ox (%) 101 4th minute Oxygen Delivery Method Room Air Pulse Ox (%) 86 Pulse Rate (60-100 beats/min) 100 Dyspnea Robinson Scale (0-10) 0 Exertion Robinson Scale (6-20) 11 5th minute Oxygen Flow Rate (L/min) (L/min) 2 Oxygen Delivery Method Nasal Cannula Pulse Ox (%) 98 Pulse Rate (60-100 beats/min) 98 6th minute Oxygen Flow Rate (L/min) (L/min) 2 Oxygen Delivery Method Nasal Cannula Pulse Ox (%) 96 Pulse Rate (60-100 beats/min) 91 Post-test Oxygen Flow Rate (L/min) (L/min) 2 Oxygen Delivery Method Nasal Cannula Pulse Ox (%) 98 Pulse Rate (60-100 beats/min) 87 Dyspnea Robinson Scale (0-10) 0 Exertion Robinson Scale (6-20) 11 Full Laps Walked 13 Partial Lap, Number of Tiles Walked 0 Total Distance Walked (ft) 767 04/28/19 11:41 Cardiopulmonary Services by Lauryn Ovalle Patient arrived on 1L from TCU, Patient's RA SpO2 was good 93-95%. Pulse Ox signal was hard to get, multiple pulse oxs tried, but a good signal was achieved to begin test. It wasn't until the 4 min daniella when the signal was questionable. Pulse ox was 72-86% with variable HR. 3 different pulse ox tried with multiple fingers tried as well. Patient did not feel SOB, but pulse ox was still low for many minutes remaining. 2L applied and the rest of the test continued on 2L. Patient has delayed capillary refill, and poor perfusion. Jeb AGUILERA Initialized on 04/28/19 11:41 - END OF NOTE - Interpretation Interpretation: The patient ambulated 767 feet over the course of 6 minutes beginning on room air with the use of a walker. Pretesting oxygen saturation was noted to be 93% on room air. With ambulation, the eduardo oxygen saturation was 86%. 2 L/min of supplemental oxygen was applied and the patient was able to complete the remainder of the test while maintaining appropriate oxygen saturations. - Recommendations Recommendations: 2 L/min of supplemental oxygen should be utilized with exertion.
== END ==
PROVIDERS: PCP Student in an Organized Health Care Education/Training Program; Referring Provider Nurse Practitioner Acute Care; Visit Provider Nurse Practitioner Acute Care
DX: E85.3 Secondary systemic amyloidosis (principal); G47.33 Obstructive sleep apnea (adult) (pediatric)
CPT/HCPCS: 32555; 94618; 95811

== ENCOUNTER → 2019-05-13 11:27 | Outpatient (CLI) | payer OTHER, SELFPAY ==
[2019-04-20 09:51] VITALS: BMI 30.1
== END ==
PROVIDERS: PCP Student in an Organized Health Care Education/Training Program; Referring Provider Nurse Practitioner Acute Care; Visit Provider Nurse Practitioner Acute Care
DX: Z46.89 Encounter for fitting and adjustment of other specified devices (principal)

== ENCOUNTER 2019-05-14 15:15 | Inpatient (IN) | payer MEDICARE, OTHER, SELFPAY ==
[2019-05-14] VITALS (17 sets, daily range): BP systolic 107–184; BP diastolic 66–132; PULSE 93–108; RESP 12–36; TEMP 36.2–36.6; O2SAT 86–99; BMI 32.7; BMI 31.8; BMI 31.9
--- NOTE | 2019-05-14 15:42 | EKG12_ITS ---
Test Reason : Blood Pressure : / mmHG Vent. Rate : 104 BPM Atrial Rate : 104 BPM P-R Int : 142 ms QRS Dur : 088 ms QT Int : 348 ms P-R-T Axes : 041 -09 159 degrees QTc Int : 457 ms Sinus tachycardia Anteroseptal infarct , age undetermined T wave abnormality, consider lateral ischemia Abnormal ECG Confirmed by MANUEL BAILEY ([id number]), fan mail editor KIKE ELLIS ([id number]) on 05/18/2019 3:44:10 PM Referred By: NATANAEL Confirmed By:MANUEL BAILEY
--- NOTE | 2019-05-14 15:43 | ED.VIS.DYS ---
History of Present Illness Chief Complaint: Shortness of Breath Informant: Patient, EMS Onset: Today - about 8-9 hrs Activity at onset: - - since awoke this AM Quality: - - just short of breath Current Severity: Severe Maximum Severity: Severe Worsened by: Coughing, Exertion Relieved by: Albuterol - duoneb given by EMS Associated Symptoms: Cough - SAGGER SOAK, - - weak all over. Negative for: Fever, Sore throat, Sweats Chest Pain: None Narrative: Patient states he woke up short of breath this morning. He called EMS this afternoon, his pulse ox was 70% on room air but patient states he wears 2 L of oxygen 22/10. He has no chest discomfort. He has chronic leg edema that is been similar to before today. He denies orthopnea. He is very poor historian. 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 He also states that the last time he had this he had fluid in his lungs. He denies a history of congestive heart failure, COPD, aplastic anemia, lymphoma/leukemia. He states he was feeling relatively well last night when he went to bed. States he felt weak today since being short of breath. As a result, at one point he fell in his home, where he lives with his significant other, hitting his head on the carpeted floor. He states he does not have any major pain or headache and did not lose consciousness. He states he is on a blood thinner but has no idea which one or why he is on it. He states whichever one he is on, he gets injections right before every meal but states he is not a diabetic. His medicine list includes Myandb. - Past Medical History (1) JOSE LUIS (obstructive sleep apnea) Status: Chronic (2) Pericardial effusion Status: Suspected (3) Pleural effusion due to CHF (congestive heart failure) Status: Suspected (4) Amyloidosis Status: Chronic (5) Diastolic CHF Status: Chronic (6) Hypertension Status: Chronic (7) Hypothyroidism Status: Chronic (8) Nephrotic syndrome Status: Chronic (9) Plasma cell dyscrasia Status: Chronic (10) Proteinuria Status: Chronic Past Medical History - Allergies and Home Meds Allergies/Adverse Reactions: Allergies No Known Allergies Allergy (Verified 05/14/19 15:21) Primary Care Physician: Gerry Pate DO [Primary Care Provider] - Surgical History: no surgical history Lives: Spouse/ Significant Other Smoking Status: Former smoker - Family History Maternal Family History: Reports: - - Mother patient unsure of the cause Paternal Family History: Reports: - - Patient not sure of father's cause of Review of Systems General: Reports: Malaise. Denies: Chills, Fever, Sweats Eyes: Denies: Visual changes - bilaterally, Diplopia ENT: Denies: Rhinorrhea, Sore throat Cardiovascular: Denies: Chest pain, Palpitations Respiratory: Reports: Dyspnea, Cough, Dyspnea on exertion. Denies: Sputum, Orthopnea Gastrointestinal: Denies: Abdominal pain, Nausea, Vomiting, Diarrhea, Melena, Hematochezia Genitourinary: Denies: Dysuria, Hematuria, Frequency Musculoskeletal: Reports: Swelling. Denies: Neck pain, Back pain, Extremity Pain Skin: Denies: Rash, Wounds Neurological: Denies: Headache, Weakness, Numbness Physical Exam Vital Signs/Narrative: Vital Signs Temp Pulse Resp BP Pulse Ox 05/14/19 15:16 97.6 F L 104 H 29 H 111/78 97 Inital Vital Signs reviewed: Yes General: Well nourished, Well developed, Acute Distress - Respiratory. Speaking in 2-5 word sentences, quick shallow breathing Head: Normocephalic, Atraumatic Eyes: Perrl, EOMI ENT: Moist mucous membranes, No rhinorrhea Neck: Supple, Nontender, No lymphadenopathy, No JVD Cardiovascular: Regular rate, Regular rhythm, No murmurs, Tachycardia - mild Respiratory: Chest nontender, Diminished - At bases. Negative for: Rales, Rhonchi, Wheezing Abdomen: Soft, Nontender, Nondistended, Normal bowel sounds Back: Nontender, Normal Inspection. Negative for: CVA tenderness Extremities: Nontender, Edema - 3+ bilateral lower extremity to knees, symmetric. Negative for: Calf Tenderness Skin: Normal color, No rash, Trauma - Minor contusion without crepitance, significant tenderness, or depression left forehead/parietal scalp. Skin intact. Neurological: Alert, Oriented x3, Cranial nerves II-XII grossly intact, Normal Strength, Normal Sensation Psychological: Normal affect, Normal Mood Diagnostic/Tx/Re-eval Impressions Brain CT 05/14/19 15:45 IMPRESSION: No acute intracranial or calvarial abnormality. There is no major interval change. Electronically Signed: Landry Newton DO at 17:16 EST Tel [phone], Service support , Chest X-Ray 05/14/19 15:45 IMPRESSION: Moderate to large right pleural effusion with volume loss and atelectasis as well as a small left pleural effusion with left basilar atelectasis. Electronically Signed: Rory Moe, at 15:58 EST , Service support , Chest CT 05/14/19 16:04 IMPRESSION: 1. Larger bilateral pleural effusions with atelectasis. 2. Fracture of the lateral left third rib. 3. Small pericardial effusion. 4. Degenerative changes of the thoracic spine. 5. Irregularity of the left 10th rib thought to represent a remote fracture. Electronically Signed: Landry NewtonDO at 17:22 EST Tel [phone], Service support , 05/14/19 15:45 CT Brain [Brain/Head without Contrast] [CT] Stat Chest 1 View (Portable) [RAD] Stat 05/14/19 16:04 CT Chest [Chest without Contrast] [CT] Stat 05/14/19 16:15 Mucosa - Nose Influenza Types A,B Direct FA (PATO) - Final Laboratory Results 05/14/19 05/14/19 05/14/19 16:10 16:10 16:10 WBC 6.9 RBC 3.17 L Hgb 10.2 L Hct 34.0 L MCV 107.3 H MCH 32.2 H MCHC 30.0 L RDW Std Deviation 53.0 H RDW Coeff of Babita 13.5 Plt Count 132 L MPV 11.9 Immature Gran % (Auto) 0.400 Neut % (Auto) 78.4 H Lymph % (Auto) 10.3 L Maury % (Auto) 7.7 Eos % (Auto) 2.9 Baso % (Auto) 0.3 Absolute Neuts (auto) 5.4 Absolute Lymphs (auto) 0.71 L Nucleated RBC % 0 Specimen Type Sample Site pH Bicarbonate Actual POC Total CO2 Base Excess O2 Saturation ABG pCO2 ABG pO2 Danielito Test O2 Delivery Device Liter Flow Blood Gas Notified Whom Blood Gas Notified Time Sodium 146 H Potassium 5.5 H Chloride 106 Carbon Dioxide 42.0 H Anion Gap -2 L BUN 29 H Creatinine 1.14 Estim Creat Clear Calc 62.02 Est GFR (MDRD) Af Amer 82 Est GFR (MDRD) Non-Af 68 BUN/Creatinine Ratio 25.4 H Glucose 125 H Lactic Acid 1.0 Calcium 9.1 Troponin I 0.039 B-Natriuretic Peptide 05/14/19 05/14/19 16:10 16:10 WBC RBC Hgb Hct MCV MCH MCHC RDW Std Deviation RDW Coeff of Babita Plt Count MPV Immature Gran % (Auto) Neut % (Auto) Lymph % (Auto) Maury % (Auto) Eos % (Auto) Baso % (Auto) Absolute Neuts (auto) Absolute Lymphs (auto) Nucleated RBC % Specimen Type ART Sample Site L Radial pH 7.18 L* Bicarbonate Actual 43.7 H POC Total CO2 47 Base Excess 15 H O2 Saturation 98 ABG pCO2 117.3 H* ABG pO2 143 H Danielito Test POS O2 Delivery Device Nasal Can Liter Flow 4.0 Blood Gas Notified Whom ED MD Blood Gas Notified Time 1600 Sodium Potassium Chloride Carbon Dioxide Anion Gap BUN Creatinine Estim Creat Clear Calc Est GFR (MDRD) Af Amer Est GFR (MDRD) Non-Af BUN/Creatinine Ratio Glucose Lactic Acid Calcium Troponin I B-Natriuretic Peptide 553.7 H - Rhythm Strip Rhythm Strip: Sinus Tach Rate: 104 Ectopy: None - EKG Initial EKG Interpretation: No Acute Injury Pattern, Sinus Tachycardia, - - Poor R wave progression. Lateral inverted T waves. Probable old anterior septal infarct. Possibly electrical alternans although it may be due to artifact. Treatment - Dyspnea: Oxygen, Albuterol, - - bipap Repeat Evaluation: Improved - Medical Decision Making Portable chest x-ray shows bilateral pleural effusions, larger on the right, but the left is large enough that his cardiac border is not able to be easily evaluated. He has a history of pericardial effusion and electrical alternans on EKG, for that reason I added a CT of the chest to further evaluate. Meanwhile, he is given an albuterol treatment since the EMS DuoNeb treatment helped, and he is placed on BiPAP after obtaining an ABG which is pending. Patient is tolerating BiPAP and breathing much better on it. His vital signs have improved. His ABG shows a significant respiratory acidosis. I suspect his mild hyperkalemia, of which she has no specific acute EKG changes, is related to this acidosis and will likely self resolve when his acidosis resolves. Given that I do not think he needs an emergent thoracentesis here in the ER. I performed a CT given his history of pericardial effusion and the possibility of subtle electrical alternans on the EKG, which otherwise does not show any acute injury. CT shows a mild pericardial effusion but no evidence of tamponade. Clinically he is not in tamponade. Plan is admission to the ICU. Discussed with suede cleaner. Also obtained a CT of the head, which was negative for intracranial injury. Patient has Lovenox on his medication list. However when I asked when his last dose was, he states the last time I was here at this hospital. He is saying that he does not get it at home. He is very poor historian when it comes to his medical history. For these reasons I am adding a PT and PTT. Since he is stable on BiPAP right now stable vital signs, I think he can be admitted to the ICU with BiPAP for now. I discussed with Dr. Serrano suede cleaner who agrees and he will consult in the a.m. Lasix is ordered. Critical care time (excluding procedures): 30-74 minutes - 35 min, including time spent discussing with patient, consultants, arranging admission, and performing direct patient care and reevaluation at the bedside ED Disposition - Plan for ED Patient: Disposition: Acute Care Hospital [facility] Diagnosis: Bilateral pleural effusion, Acute respiratory failure with hypoxia and hypercapnia, Diastolic CHF, Pericardial effusion without cardiac tamponade, Closed head injury without loss of consciousness Referrals: Gerry Pate, [Primary Care Provider] -
--- NOTE | 2019-05-14 15:45 | RAD_ITS ---
STUDY: X-RAY CHEST REASON FOR EXAM: Male, 68 years old. Increased SOB. Per EMS patient was 70% on RA on arrival. Pt also states he fell and hit his head this AM TECHNIQUE: Single AP portable view of the chest. COMPARISON: Comparison is made with prior study dated April 28, 2019. FINDINGS: A right-sided portacatheter is seen with the tip in the right atrium. There now is evidence of a moderate to large size right pleural effusion with right basilar volume loss. There is also evidence of a small left pleural effusion with left lower lobe atelectasis and/or consolidation. Normal size heart. Normal mediastinum and eric. Normal visualized pulmonary arteries. Normal visualized aortic arch and descending thoracic aorta. There are diffuse degenerative changes of the visualized thoracic spine. There is degenerative osteoarthritis of the bilateral shoulders. There is no demonstrated abnormality of the visualized soft tissue structures of the upper abdomen. RAD/Chest 1 View (Portable) IMPRESSION: Moderate to large right pleural effusion with volume loss and atelectasis as well as a small left pleural effusion with left basilar atelectasis. Electronically Signed: Rory Rosa, at 15:58 EST , Service support ,
--- NOTE | 2019-05-14 15:45 | CT_ITS ---
STUDY: CT BRAIN WITHOUT CONTRAST REASON FOR EXAM: Male, 68 years old. Fall today. Head trauma. Patient on blood thinners. RADIATION DOSAGE (If Supplied By Facility): CTDIvol = ( 44.99 ) mGy, DLP = ( 796.11 ) mGycm TECHNIQUE: Transaxial CT imaging of the brain was performed without administration of intravenous contrast material. Individualized dose optimization techniques were used for this CT. COMPARISON: April 20, 2019. FINDINGS: Normal soft tissue structures. Normal calvarium. Normal size ventricles and extra-axial spaces for the patient''s age. Normal white matter tracts of the cerebral hemispheres. Normal basal ganglia and thalami. Normal brainstem. Normal cerebellum. There is no intracranial hemorrhage. There are no findings of an acute ischemic infarction. Normal visualized paranasal sinuses. CT/Brain/Head without Contrast IMPRESSION: No acute intracranial or calvarial abnormality. There is no major interval change. Electronically Signed: Landry Newton DO at 17:16 EST Tel [phone], Service support ,
--- NOTE | 2019-05-14 16:04 | CT_ITS ---
STUDY: CT CHEST WITHOUT CONTRAST REASON FOR EXAM: Male, 68 years old. Increased shortness of breath. Fall today with head trauma. Bone marrow disorder. RADIATION DOSAGE (If Supplied By Facility): CTDIvol = ( 19.30 ) mGy, DLP = ( 607.70 ) mGycm TECHNIQUE: Transaxial imaging was performed without the administration of intravenous contrast material. Multiplanar coronal and sagittal images were reformatted. Individualized dose optimization techniques were used for this CT. COMPARISON: Chest, May 14, 2019 FINDINGS: There is a right jugular Port-A-Cath with its tip in the right atrium. There are large bilateral pleural effusions, right greater than left with complete atelectasis of the right lower and middle lobes and partial atelectasis of the left lower lobe. No visualized mass or infiltrate. There is no demonstrated pleural abnormality. The heart is normal in size. Small pericardial effusion. Normal mediastinum. Normal hilar regions. Normal unenhanced pulmonary arteries. Normal aorta arch and descending thoracic aorta. There are multi-level degenerative changes of the thoracic spine. There is irregularity of the left 10th rib adjacent to the vertebra. Question remote fracture. There are also acute-appearing fractures of the left lateral third rib. There is no demonstrated abnormality of the visualized upper abdomen. CT/Chest without Contrast IMPRESSION: 1. Larger bilateral pleural effusions with atelectasis. 2. Fracture of the lateral left third rib. 3. Small pericardial effusion. 4. Degenerative changes of the thoracic spine. 5. Irregularity of the left 10th rib thought to represent a remote fracture. Electronically Signed: Landry Newton DO at 17:22 EST Tel [phone], Service support ,
[2019-05-14 16:21] LABS: Allen Test POS; Base Excess 15 mmol/L (-2 to +2); Bicarbonate 43.7 mmol/L (22-26); Blood Gas Specimen Type ART; O2 Delivery Device Nasal Can; PO2 143 mmHG (75-100); SITE L Radial; SO2 98 % (95-99); Time Given 1600; Total Carbon Dioxide 47 mmol/L; pCO2 117.3 mmHg (35-45); pH 7.18 (7.35-7.45)
[2019-05-14 16:26] LABS: Absolute Lymphocyte Count 0.71 X10^3/uL (0.83-4.51); Absolute Neutrophil Count 5.4 X10^3/uL (2.0-7.7); Basophil# 0.02 X10^3/uL; Basophil% 0.3 % (0-1); Eosinophils% 2.9 % (0-5); Hemoglobin 10.2 g/dL (13.0-16.5); Lymphocyte # 0.71 X10^3/ul (4.0); Lymphocyte % 10.3 % (19-41); Mean Corpuscular Hgb 32.2 pg (27.0-32.0); Mean Corpuscular Volume 107.3 fL (80-94); Mean Platelet Vol. 11.9 fl (6.2-12.0); Monocyte# 0.53 X10^3/uL; Monocyte% 7.7 % (0-10); NRBC Flagged by Analyzer 0 % (0-5); Neutrophil % 78.4 % (47-70); Platelet Count 132 K/mm3 (150-450); RBC Distribution Width CV 13.5 % (11.6-14.6); Red Blood Count 3.17 M/mm3 (4.6-6.2); White Blood Count 6.9 K/mm3 (4.4-11.0)
[2019-05-14] MEDS: Albuterol 2.5 MG/3 ML VIAL.NEB. INHALATION (16:30)
--- NOTE | 2019-05-14 16:48 | CPS ---
CRITICAL VALUE ON ABG GAVE TO DR.BARONE ZAVALA
[2019-05-14 16:50] LABS: Anion Gap -2 (5-15); BUN 29 mg/dL (7-18); BUN/Creat Ratio 25.4 RATIO (10-20); Calcium,Total 9.1 mg/dL (8.5-10.1); Chloride 106 mmol/L (98-107); Creatinine, Serum 1.14 mg/dL (0.70-1.30); EST Glomerular Filtration Rate 68 mL/min (>60); Est Glom Filt Rate - Afr Amer 82 mL/min (>60); Estimated Creatinine Clearance 62.02 ml/min; Glucose 125 mg/dL (74-106); Potassium 5.5 mmol/L (3.5-5.1); Sodium Level 146 mmol/L (136-145)
[2019-05-14 17:02] LABS: BNP,B-Type NATRIURETIC PEPTIDE 553.7 pg/mL (0-100)
--- NOTE | 2019-05-14 17:31 | NURSING ---
ICU KORAM HYPOXIC/HYPERCAPNEIC RESP FAILURE, FADY PLEURAL EFFUSIONS, PERICARD EFFUSN
[2019-05-14] MEDS: Furosemide 40 MG/4 ML Vial IV (17:32)
--- NOTE | 2019-05-14 17:36 | NURSING ---
ICU 3
--- NOTE | 2019-05-14 17:54 | HP.PCM_ITS ---
History of Present Illness Date of Admission: 05/14/19 Chief Complaint: Shortness of breath The patient is a 68 year old M with a past medical history of chronic hypoxic and hypercapnic respiratory failure, on 2 L of oxygen at home as well as recurrent pleural effusion and chronic diastolic heart failure. Also has a history of plasma cell dyscrasia and myeloid doses. He was admitted through the ED on 05/14/2019 with a complaint of shortness of breath was started on morning of admission. Patient was a poor historian and at time of review, he was on BiPAP endoscopes he wanted to be taken off of it. He says shortness of breath started this morning. Was not relieved by wearing his usual 2 L of oxygen. He had no associated cough, chest pain or palpitations, dizziness, orthopnea or PND. Review of stems otherwise negative. Patient was recently admitted with similar complaints in April 2019 and required right-sided thoracentesis with removal of about 2 L. On arrival in the ED, vitals were significant for respiratory rate of 27 with blood pressure of 147/107. Labs showed potassium of 5.5 with sodium of 146 and bicarb of 42. CBC showed hemoglobin of 10.2 and WBC of 6.9. BNP was 553 and initial troponin was 0.039. Chest x-ray showed a moderate to large right pleural effusion with volume loss and atelectasis as well as a small left pleural effusion with left basilar atelectasis. Chest CT showed larger bilateral pleural effusions with atelectasis and fracture of the left lateral third rib. ABGs done showed pH of 7.18 with CO2 of 117, this was done while she was on 4 L of oxygen. He has been admitted to be managed for acute on chronic hypoxic and hypercapnic respiratory failure due to bilateral recurrent pleural effusions. [] Past Medical History Past Medical History (Chronic Problems): Chronic Problems (Last Reviewed 04/27/19 @ 09:56 by HOLLY Kay) JOSE LUIS (obstructive sleep apnea) (Chronic) Hypertension (Chronic) Hypothyroidism (Chronic) Plasma cell dyscrasia (Chronic) Nephrotic syndrome (Chronic) Amyloidosis (Chronic) Diastolic CHF (Chronic) Proteinuria (Chronic) CHF (congestive heart failure) (Chronic) Essential (primary) hypertension (Chronic) Medical History: Medical History (Last Reviewed 04/27/19 @ 09:56 by Lavern Robles NP-C) Pericardial effusion (Suspected) I31.3 Proteinuria (Chronic) R80.9 CHF (congestive heart failure) (Chronic) I50.9 Essential (primary) hypertension (Chronic) I10 Allergies No Known Allergies Allergy (Verified 05/14/19 15:21) Home Medications: Ambulatory Orders Medication Instructions Recorded Furosemide [Lasix] 40 mg PO BID 04/13/19 Melatonin 10 mg PO QHS 05/14/19 Surgical History: Surgical History (Last Reviewed 04/27/19 @ 09:56 by HOLLY Kay) History of open reduction and internal fixation (ORIF) procedure Z98.890 left foot Surgical History: no surgical history Psychiatric History: No pertinent psych hx Lives: Spouse/ Significant Other Smoking Status: Former smoker Alcohol: None Drugs: None - *Family History Maternal History Items: - - Mother patient unsure of the cause Paternal History Items: - - Patient not sure of father's cause of Review of Systems Constitutional: Reports: Malaise, Weakness, Fatigue. Denies: Anorexia, Chills, Night Sweats Eyes: Denies: Blurred vision HEENT: Denies: Head Aches, Sinus Congestion, Sinus Drainage Cardiovascular: Denies: Chest Pain, Heaviness, Light Headedness, Orthopnea, Palpitations, Paroxysmal Noc. Dyspnea Respiratory: Reports: Shortness of Breath, Shortness of breath at rest, Shortness of breath upon exertion. Denies: Cough, Hemoptysis, Pleuritic Pain, Sputum production, Wheezing Gastrointestinal: Denies: Abdominal Pain, Nausea, Vomiting Genitourinary: Denies: Dysuria Musculoskeletal: Denies: Joint Pain, Joint Tenderness Skin: Denies: Rash, Wounds Neurological: Denies: Numbness, Tingling, Focal weakness Psychiatric: Denies: Anxiety, Depression, Homicidal Ideations, Suicidal Ideation s Hematologic/ Lymphatic: Denies: Easy Bruising, Easy Bleeding VTE Information - Inpt Only VTE Present on Admission: No VTE Pharm Prophylaxis ordered?: Yes Patient Problems: Active and Suspected Problems (Last Reviewed 04/27/19 @ 09:56 by Lavern Robles [employer] MANAGEMENT TEACHER-C) Bilateral pleural effusion (Acute) Acute respiratory failure with hypoxia and hypercapnia (Acute) Pericardial effusion without cardiac tamponade (Acute) Closed head injury without loss of consciousness (Acute) - Physical Exam Vitals/I&O's: Vital Signs Temp Pulse Resp BP Pulse Ox 97.6 F L 93 27 H 147/107 H 97 05/14/19 15:16 05/14/19 17:10 05/14/19 17:10 05/14/19 17:10 05/14/19 17:10 Oxygen Flow Rate (L/min) 4 Oxygen Delivery Method Bi-pap Weight: 221 lb 9.033 oz Body Mass Index (BMI) 32.7 General: Alert, Cooperative, No apparent distress, Confused HEENT: Atraumatic, PERRLA, EOMI, Normocephalic Oral: Dry Mucosa Neck: Supple, No JVD, Negative Carotid Bruits Lungs: Tachypneic, Using Accessory Muscles, - - markedly decreased breath sounds bibasally, no wheezes or crackles. On BIPAP at time of review Cardiovascular: Regular rate, Regular Rhythm, Normal S1, Normal S2, No murmurs Abdomen: Bowel Sounds Present, Soft, Non Tender, Non-Distended, No Hepato- splenomegaly Extremities: No clubbing, No cyanosis, Capillary Refill Less than 3 Seconds, - - bilateral LE 2+ pitting edema Skin: - - portacath in right side of chest Musculoskeletal: No Tenderness to Palpation of Joints or Extremities Lymphatic: No Cervical, Supraclavicular, or Inguinal Adenopathy Neurological: Cranial nerves II-XII grossly intact, Neuro grossly intact, Motor Exam 5/5 strength throughout Psych/Mental Status: Anxious Microbiology Past 72 Hours 05/14/19 16:15 Mucosa - Nose Influenza Types A,B Direct FA (PATO) - Final Laboratory Results 05/14/19 16:10: WBC 6.9, RBC 3.17 L, Hgb 10.2 L, Hct 34.0 L, MCV 107.3 H, MCH 32.2 H, MCHC 30.0 L, RDW Std Deviation 53.0 H, RDW Coeff of Babita 13.5, Plt Count 132 L, MPV 11.9, Immature Gran % (Auto) 0.400, Neut % (Auto) 78.4 H, Lymph % (Auto) 10.3 L, [place] % (Auto) 7.7, Eos % (Auto) 2.9, Baso % (Auto) 0.3, Absolute Neuts (auto) 5.4, Absolute Lymphs (auto) 0.71 L, Nucleated RBC % 0 05/14/19 16:10: Sodium 146 H, Potassium 5.5 H, Chloride 106, Carbon Dioxide 42.0 H, Anion Gap -2 L, BUN 29 H, Creatinine 1.14, Estim Creat Clear Calc 62.02, Est GFR (MDRD) Af Amer 82, Est GFR (MDRD) Non-Af 68, BUN/Creatinine Ratio 25.4 H, Glucose 125 H, Calcium 9.1, Troponin I 0.039 05/14/19 16:10: Lactic Acid 1.0 05/14/19 16:10: B-Natriuretic Peptide 553.7 H 05/14/19 16:10: Specimen Type ART, Sample Site L Radial, pH 7.18 L*, Bicarbonate Actual 43.7 H, POC Total CO2 47, Base Excess 15 H, O2 Saturation 98, ABG pCO2 117.3 H*, ABG pO2 143 H, Danielito Test POS, O2 Delivery Device Nasal Can, Liter Flow 4.0, Blood Gas Notified Whom ED MD, Blood Gas Notified Time [address] 05/14/19 15:45 IMPRESSION: No acute intracranial or calvarial abnormality. There is no major interval change. Electronically Signed: Landry Newton DO at 17:16 EST Tel [phone], Service support , Chest X-Ray 05/14/19 15:45 IMPRESSION: Moderate to large right pleural effusion with volume loss and atelectasis as well as a small left pleural effusion with left basilar atelectasis. Electronically Signed: Rory Rosa, at 15:58 EST , Service support , Chest CT 05/14/19 16:04 IMPRESSION: 1. Larger bilateral pleural effusions with atelectasis. 2. Fracture of the lateral left third rib. 3. Small pericardial effusion. 4. Degenerative changes of the thoracic spine. 5. Irregularity of the left 10th rib thought to represent a remote fracture. Electronically Signed: Landry Newton DO at 17:22 EST Tel [phone], Service support , Assessment/Plan All Active Problems (Last Reviewed 04/27/19 @ 09:56 by Lavern Robles, [place]-C) Bilateral pleural effusion (Acute) Acute respiratory failure with hypoxia and hypercapnia (Acute) Pericardial effusion without cardiac tamponade (Acute) Closed head injury without loss of consciousness (Acute) Debility (Acute) Weakness of both legs (Acute) Falls (Acute) Acute and chronic respiratory failure with hypercapnia (Acute) Acute on chronic diastolic heart failure (Acute) Diastolic CHF, acute on chronic (Acute) 68 y/o admitted with a complaint of shortness of breath 1. Acute on chronic hypoxic and hypercapnic respiratory failure due to bilateral pleural effusions * on admission, ABG showed pH of 7.18,. with bicarb of 117; baseline bicarb is ~ 77 * started on BIPAP in ED * Chest CT showed bilateral large pleural effusions * admit to ICU * continue BIPAP'; recheck ABG in ~ 1 hour * breathing treatments prn with duonebs * for thoracentesis tomorrow * of note, had similar presentation 1 month ago, and required right sided thoracentesis with removal of 2L of fluid * will check PT/INR and PTT in preparation for thoracentesis tomorrow * patient counseled about need for intubation if he doesnt tolerate or do well o n BiPAP * 2. Bilateral recurrent pleural effusion, likely due to acute on chronic heart failure * CT showed large bilateral pleural effusion with atelectasis. * as under 1. * 3. Respiratory acidosis due to acute on chronic hypercapnic and hypoxic respiratory failure * as under 1 * 4. acute on chronic HFpEF * BNP was ~ 555, which is actually the lowest it has been * 2D echo(04/08/2019):stage 1 diastolic dysfunction, with evidence of amyloidosis. * will start on IV lasix 40mg bid * monitor intake output chart; fluid restriction to 1500cc daily * for thoracentesis tomorrow for pleural effusion * 5. hyperkalemia: Potassium is 5.5. on IV lasix which should help. Will also give rectal kayexalate and potassium depleting cocktail 6. History of plasma cell dyscrasia: follow up with oncology DVT prophylaxis: lovenox Code status: full code. * Patient counseled extensively about different types of CODE STATUS including full code, DNR CCA and DNR CCA. Patient elects to be full code. * Total wgif-ev-lfog time 16 minutes. * Total critical care time spent seeing patient and coordinating care: 45 minutes Code Visit Inpatient E&M: 06132 Init Hosp L3 Procedures: 21088 Critial Care 1st Hr - Advanced care planning 30 mins- [id number]
[2019-05-14 18:12] LABS: International Normalized Ratio 1.1; Partial Thromboplast Time 28.6 Seconds (24.1-36.2)
--- NOTE | 2019-05-14 19:20 | CPS ---
Critical Values of PCO2 79 mmHg read to [employer]
[2019-05-14 19:36] LABS: Base Excess 19 mmol/L (-2 to +2); Bicarbonate 44.1 mmol/L (22-26); Blood Gas Specimen Type ART; EPAP 7; FI02 40; IPAP 20; PO2 99 mmHG (75-100); RR 12; SITE R Radial; SO2 97 % (95-99); Time Given 1920; Total Carbon Dioxide 46 mmol/L; pCO2 79.2 mmHg (35-45); pH 7.35 (7.35-7.45)
[2019-05-14] MEDS: Ipratropium/Albuterol Sulfate 3 ML AMPUL.NEB INHALATION (19:50)
[2019-05-14] MEDS: Sodium Polystyrene Sulfonate 15 GM/60 ML UDC 30 GM PO (21:17)
--- NOTE | 2019-05-14 22:05 | NURSING ---
Placed on 6L NC for a break off of the bipap at 2049. Patient tolerated NC well. Given ice chips and Kayexalate. Placed back on Bipap 40% at 2139. Patient resting comfortably in bed at this time, denies any further needs.
[2019-05-15] VITALS (30 sets, daily range): BP systolic 97–150; BP diastolic 63–99; PULSE 93–142; RESP 12–35; TEMP 36.3–36.8; O2SAT 64–99
--- NOTE | 2019-05-15 | FLU_PTH ---
PATIENT: SHELLEY DOAN LOC: [facility] U#:[id number] AGE/SX: 68/M ROOM: [facility] RE05/14/[address]: Dr. Jennifer Wolf MD : 1950 BED: 1 DIS: 05/20/2019 SPEC #: [id number] RECD: 05/15/19 11:52 STATUS: MARTHA REJavy #: [id number] PRETTY: 05/15/19 00:[address]: Sheri Berg DEPT: CYTOLOGY RECD BY: Vitaly Jenkins ENTERED: 05/15/19 11:52 SP TYPE: Fluid OTHR DR: DO Dr. Orlando Randle MD Dr. Jordan Garrison, Tissues: THORACIC FLUID Procedures: Special Stain Group II Surgery Specimen Level IV Cytospin Fluid HEADER OPERATION: Ultrasound-guided right thoracentesis PRE-OP DIAGNOSIS: Bilateral pleural effusion TISSUE SUBMITTED: Thoracentesis fluid for cytology DIAGNOSIS CYTOLOGY Thoracentesis fluid for cytology (cytospin and cell block): Negative for malignant cells. AM:obi 05/18/19 CYTOLOGY STUDY Slides are reviewed. CYTOLOGY GROSS Received is 87 ml of clear yellow fluid labeled with the patient's name and and designated per the requisition as thoracentesis. Submitted for cytology preparation including cell block. / obi 05/15/19 TC:5 CPT: 92189, 25259
[2019-05-15] MEDS: Ipratropium/Albuterol Sulfate 3 ML AMPUL.NEB INHALATION ×2 (00:07→06:37)
[2019-05-15 04:27] LABS: Absolute Lymphocyte Count 0.67 X10^3/uL (0.83-4.51); Absolute Neutrophil Count 3.7 X10^3/uL (2.0-7.7); Basophil# 0.01 X10^3/uL; Basophil% 0.2 % (0-1); Eosinophil# 0.01 X10^3/uL; Eosinophils% 0.2 % (0-5); Hematocrit 28.3 % (40-54); Hemoglobin 8.8 g/dL (13.0-16.5); Lymphocyte # 0.67 X10^3/ul (4.0); Mean Corp Hgb Conc 31.1 g/dL (32-36); Mean Corpuscular Hgb 32.5 pg (27.0-32.0); Mean Corpuscular Volume 104.4 fL (80-94); Mean Platelet Vol. 11.9 fl (6.2-12.0); Monocyte# 0.38 X10^3/uL; Monocyte% 7.9 % (0-10); NRBC Flagged by Analyzer 0 % (0-5); Neutrophil # 3.68 X10^3/uL (2.7-7.7); Neutrophil % 77.1 % (47-70); POSITIVE COUNT YES; Platelet Count 95 K/mm3 (150-450); RBC Distribution Width CV 13.6 % (11.6-14.6); RBC Distribution Width SD 50.1 fl (35.1-43.9); Red Blood Count 2.71 M/mm3 (4.6-6.2); White Blood Count 4.8 K/mm3 (4.4-11.0)
[2019-05-15 04:32] LABS: International Normalized Ratio 1.2; Prothrombin Time (Protime)PT. 14.8 SECONDS (11.7-14.9)
[2019-05-15 04:40] LABS: Anion Gap 0 (5-15); BUN 33 mg/dL (7-18); BUN/Creat Ratio 31.1 RATIO (10-20); Calcium,Total 8.7 mg/dL (8.5-10.1); Chloride 104 mmol/L (98-107); Creatinine, Serum 1.06 mg/dL (0.70-1.30); EST Glomerular Filtration Rate 74 mL/min (>60); Est Glom Filt Rate - Afr Amer 89 mL/min (>60); Glucose 97 mg/dL (74-106); Potassium 4.6 mmol/L (3.5-5.1); Sodium Level 146 mmol/L (136-145)
--- NOTE | 2019-05-15 06:33 | CON.PCM_ITS ---
Reason for Consult Date of Consultation: 05/15/19 Reason for Consultation: Acute hypoxemic respiratory failure History of Present Illness: The patient is a 68-year-old male, with a history as outlined below, who presented to the emergency department on May 14 with complaints of shortness of breath. The patient has a history of systemic amyloidosis with nephrotic syndrome, congestive heart failure, chronic hypoxemic respiratory failure and obstructive sleep apnea. The patient was recently admitted to the hospital for 5 days in April 2019 with respiratory failure and recurrent pleural effusions in the setting of decompensated heart failure, requiring aggressive diuresis and thoracentesis. Surface echocardiogram from April 2019 revealed moderate concentric LVH with global scintillating LV consistent with amyloidosis. Stage I diastolic dysfunction was noted. Pulmonary function studies completed in April 2019 revealed evidence of a severe restrictive ventilatory impairment with mild reduction in diffusing capacity. 6-minute walk test also completed at that time revealed the need for 2 L/min of supplemental oxygen with exertion. On presentation to the emergency department, the patient was noted to be afebrile and hemodynamically stable. He was tachypneic and hypoxemic requiring 4 L/min of supplemental oxygen initially. However, due to worsening respiratory status, the patient was placed on BiPAP. Initial laboratory evaluation revealed no evidence of a leukocytosis. Coagulation profile was within normal limits. Initial arterial blood gas on 4 L/min revealed a pH of 7.18 with a corresponding PCO2 of 117 and PO2 of 143. Chemistry profile was notable for a sodium of 146, potassium of 5.5, bicarbonate of 42 and creatinine of 1.14. Troponin was negative. BNP was elevated to 553. CT chest revealed bilateral pleural effusions, right greater than left with associated compressive atelectasis. The patient's hyperkalemia was treated medically and he was placed on diuretic therapy. The patient was subsequently admitted to the medical intensive care unit for further management. Past Medical History Past Medical History (Chronic Problems): Chronic Problems (Last Reviewed 04/27/19 @ 09:56 by HOLLY Kay) JOSE LUIS (obstructive sleep apnea) (Chronic) Hypertension (Chronic) Hypothyroidism (Chronic) Plasma cell dyscrasia (Chronic) Nephrotic syndrome (Chronic) Amyloidosis (Chronic) Diastolic CHF (Chronic) Proteinuria (Chronic) CHF (congestive heart failure) (Chronic) Essential (primary) hypertension (Chronic) Medical History: Medical History (Last Reviewed 04/27/19 @ 09:56 by Lavern Robles NP-Jamie) Pericardial effusion (Suspected) I31.3 Proteinuria (Chronic) R80.9 CHF (congestive heart failure) (Chronic) I50.9 Essential (primary) hypertension (Chronic) I10 Allergies No Known Allergies Allergy (Verified 05/14/19 15:21) Home Medications: Ambulatory Orders Medication Instructions Recorded Furosemide [Lasix] 40 mg PO BID 04/13/19 Melatonin 10 mg PO QHS 05/14/19 Surgical History: Surgical History (Last Reviewed 04/27/19 @ 09:56 by HOLLY Kay) History of open reduction and internal fixation (ORIF) procedure Z98.890 left foot Surgical History: no surgical history Psychiatric History: No pertinent psych hx Lives: Spouse/ Significant Other Smoking Status: Former smoker Tobacco Use: Cigarettes Alcohol: None Drugs: None - *Family History Maternal History Items: - - Mother patient unsure of the cause Paternal History Items: - - Patient not sure of father's cause of Review of Systems Constitutional: Denies: Chills, Fever Eyes: Denies: Blurred vision, Double vision HEENT: Denies: Head Aches, Sinus Congestion, Sinus Drainage Cardiovascular: Reports: Edema. Denies: Chest Pain, Palpitations Respiratory: Reports: Shortness of Breath. Denies: Cough, Sputum production Gastrointestinal: Denies: Abdominal Pain, Nausea, Vomiting Genitourinary: Denies: Dysuria Musculoskeletal: Denies: Joint Pain, Joint Tenderness Skin: Denies: Rash, Wounds Neurological: Denies: Numbness, Tingling, Focal weakness Psychiatric: Denies: Anxiety, Depression, Homicidal Ideations, Suicidal Ideations Hematologic/ Lymphatic: Reports: Anemia Patient Problems: Active and Suspected Problems (Last Reviewed 04/27/19 @ 09:56 by Lavern Robles NP-C) Bilateral pleural effusion (Acute) Acute respiratory failure with hypoxia and hypercapnia (Acute) Pericardial effusion without cardiac tamponade (Acute) Closed head injury without loss of consciousness (Acute) Objective: The patient's most recent lab work, culture data and imaging studies have all been personally reviewed. - Physical Exam Vitals/I&O's: Vital Signs Temp Pulse Resp BP Pulse Ox 97.9 F 104 H 19 H 144/91 H 93 05/15/19 04:00 05/15/19 06:00 05/15/19 06:00 05/15/19 06:00 05/15/19 06:00 Oxygen Flow Rate (L/min) 6 Oxygen Delivery Method Bi-pap Weight: 209 lb 10.554 oz Body Mass Index (BMI) 31.8 Intake and Output for Last 24 Hours 05/13/19 05/14/19 05/15/19 23:59 23:59 23:59 Intake Total 240 / 240 240 / 240 Output Total 700 / 700 275 / 275 Balance -460 / -460 -35 / -35 General: Alert, Oriented x3, Cooperative, - - BiPAP mask currently in place HEENT: Atraumatic, PERRLA, Normocephalic Oral: Dry Mucosa Neck: Supple, No Nodes, Trachea Midline Lungs: Tachypneic, - - Significantly diminished air movement in the bases bilaterally with dullness to percussion. Cardiovascular: Normal S1, Normal S2, No murmurs, Tachycardic Abdomen: Bowel Sounds Present, Soft, Non Tender, Obese Extremities: No clubbing, No cyanosis, Edema Skin: No breakdown Musculoskeletal: No Tenderness to Palpation of Joints or Extremities Lymphatic: No Cervical, Supraclavicular, or Inguinal Adenopathy Neurological: Cranial nerves II-XII grossly intact, Neuro grossly intact Psych/Mental Status: Normal Affect, Appropriate Labs (Last 48 Hours) 05/14/19 05/14/19 05/14/19 16:10 16:10 16:10 WBC 6.9 RBC 3.17 L Hgb 10.2 L Hct 34.0 L MCV 107.3 H MCH 32.2 H MCHC 30.0 L RDW Std Deviation 53.0 H RDW Coeff of Babita 13.5 Plt Count 132 L MPV 11.9 Immature Gran % (Auto) 0.400 Neut % (Auto) 78.4 H Lymph % (Auto) 10.3 L Nuckolls % (Auto) 7.7 Eos % (Auto) 2.9 Baso % (Auto) 0.3 Absolute Neuts (auto) 5.4 Absolute Lymphs (auto) 0.71 L Nucleated RBC % 0 PT INR APTT Specimen Type Sample Site pH Bicarbonate Actual POC Total CO2 Base Excess O2 Saturation O2 % ABG pCO2 ABG pO2 Danielito Test Respiration Rate O2 Delivery Device Liter Flow EPAP IPAP Blood Gas Notified Whom Blood Gas Notified Time Sodium 146 H Potassium 5.5 H Chloride 106 Carbon Dioxide 42.0 H Anion Gap -2 L BUN 29 H Creatinine 1.14 Estim Creat Clear Calc 62.02 Est GFR (MDRD) Af Amer 82 Est GFR (MDRD) Non-Af 68 BUN/Creatinine Ratio 25.4 H Glucose 125 H Lactic Acid 1.0 Calcium 9.1 Troponin I 0.039 B-Natriuretic Peptide 05/14/19 05/14/19 05/14/19 16:10 16:10 16:10 WBC RBC Hgb Hct MCV MCH MCHC RDW Std Deviation RDW Coeff of Babita Plt Count MPV Immature Gran % (Auto) Neut % (Auto) Lymph % (Auto) Nuckolls % (Auto) Eos % (Auto) Baso % (Auto) Absolute Neuts (auto) Absolute Lymphs (auto) Nucleated RBC % PT 14.0 INR 1.1 APTT 28.6 Specimen Type ART Sample Site L Radial pH 7.18 L* Bicarbonate Actual 43.7 H POC Total CO2 47 Base Excess 15 H O2 Saturation 98 O2 % ABG pCO2 117.3 H* ABG pO2 143 H Danielito Test POS Respiration Rate O2 Delivery Device Nasal Can Liter Flow 4.0 EPAP IPAP Blood Gas Notified Whom ED Blood Gas Notified Time 1600 Sodium Potassium Chloride Carbon Dioxide Anion Gap BUN Creatinine Estim Creat Clear Calc Est GFR (MDRD) Af Amer Est GFR (MDRD) Non-Af BUN/Creatinine Ratio Glucose Lactic Acid Calcium Troponin I B-Natriuretic Peptide 553.7 H 05/14/19 05/15/19 05/15/19 19:26 04:15 04:15 WBC 4.8 RBC 2.71 L Hgb 8.8 L Hct 28.3 L MCV 104.4 H MCH 32.5 H MCHC 31.1 L RDW Std Deviation 50.1 H RDW Coeff of Babita 13.6 Plt Count 95 L MPV 11.9 Immature Gran % (Auto) 0.600 Neut % (Auto) 77.1 H Lymph % (Auto) 14.0 L Nuckolls % (Auto) 7.9 Eos % (Auto) 0.2 Baso % (Auto) 0.2 Absolute Neuts (auto) 3.7 Absolute Lymphs (auto) 0.67 L Nucleated RBC % 0 PT 14.8 INR 1.2 APTT Specimen Type ART Sample Site R Radial pH 7.35 Bicarbonate Actual 44.1 H POC Total CO2 46 Base Excess 19 H O2 Saturation 97 O2 % 40 ABG pCO2 79.2 H* ABG pO2 99 Danielito Test NA Respiration Rate 12 O2 Delivery Device Bi / C PAP Liter Flow EPAP 7 IPAP 20 Blood Gas Notified Whom [facility] Blood Gas Notified Time 1920 Sodium Potassium Chloride Carbon Dioxide Anion Gap BUN Creatinine Estim Creat Clear Calc Est GFR (MDRD) Af Amer Est GFR (MDRD) Non-Af BUN/Creatinine Ratio Glucose Lactic Acid Calcium Troponin I B-Natriuretic Peptide 05/15/19 04:15 WBC RBC Hgb Hct MCV MCH MCHC RDW Std Deviation RDW Coeff of Babita Plt Count MPV Immature Gran % (Auto) Neut % (Auto) Lymph % (Auto) Nuckolls % (Auto) Eos % (Auto) Baso % (Auto) Absolute Neuts (auto) Absolute Lymphs (auto) Nucleated RBC % PT INR APTT Specimen Type Sample Site pH Bicarbonate Actual POC Total CO2 Base Excess O2 Saturation O2 % ABG pCO2 ABG pO2 Danielito Test Respiration Rate O2 Delivery Device Liter Flow EPAP IPAP Blood Gas Notified Whom Blood Gas Notified Time Sodium 146 H Potassium 4.6 Chloride 104 Carbon Dioxide 42.0 H Anion Gap 0 L BUN 33 H Creatinine 1.06 Estim Creat Clear Calc 66.70 Est GFR (MDRD) Af Amer 89 Est GFR (MDRD) Non-Af 74 BUN/Creatinine Ratio 31.1 H Glucose 97 Lactic Acid Calcium 8.7 Troponin I B-Natriuretic Peptide Microbiology 05/14/19 16:15 Mucosa - Nose Influenza Types A,B Direct FA (PATO) - Final Clinical Impression(s) from Imaging Studies Brain CT 05/14/19 15:45 IMPRESSION: No acute intracranial or calvarial abnormality. There is no major interval change. Electronically Signed: Landry Newton, at 17:16 EST Tel [phone], Service support , Chest X-Ray 05/14/19 15:45 IMPRESSION: Moderate to large right pleural effusion with volume loss and atelectasis as well as a small left pleural effusion with left basilar atelectasis. Electronically Signed: Rory Rosa, at 15:58 EST , Service support , Chest CT 05/14/19 16:04 IMPRESSION: 1. Larger bilateral pleural effusions with atelectasis. 2. Fracture of the lateral left third rib. 3. Small pericardial effusion. 4. Degenerative changes of the thoracic spine. 5. Irregularity of the left 10th rib thought to represent a remote fracture. Electronically Signed: Landry Newton, DO at 17:22 EST Tel [phone], Service support , Current Medications Albuterol/Ipratropium (Duoneb) 3 ml INHALATION Q6H.RT COLLEEN Last Admin: 05/15/19 00:07 Dose: 3 ml Documented by: Enoxaparin Sodium (Lovenox) 40 mg SC DAILY COLLEEN Furosemide (Lasix) 40 mg IV BIDLX COLLEEN Glucagon () 1 mg IM .X1 PRN PRN Reason: Hypoglycemia Heparin Sodium (Beef Lung) () 50 units IV UD PRN PRN Reason: Port-a-Cath (VAD)Heparin Flush Dextrose (Dextrose 10%-Water) 250 mls @ 999 mls/hr IV .Q16M PRN; Protocol PRN Reason: HYPOGLYCEMIA Sodium Chloride () 10 - 40 ml IV UD PRN PRN Reason: Port-a-Cath (VAD) Flush Sodium Chloride (0.9% Nacl (Sterile) Posiflush) 10 - 40 ml IV UD PRN PRN Reason: Port access or dressing change Assessment/Plan Active and Suspected Problems (Last Reviewed 04/27/19 @ 09:56 by Lavern Robles NP-C) Bilateral pleural effusion (Acute) Acute respiratory failure with hypoxia and hypercapnia (Acute) Pericardial effusion without cardiac tamponade (Acute) Closed head injury without loss of consciousness (Acute) RECOMMENDATIONS: 1. Continue diuretic therapy. Obtain cardiology consultation. 2. Transition from BiPAP to AVAPS. Wean supplemental oxygen to maintain saturations in the 88 to 92% range. 3. Obtain ultrasound-guided thoracentesis and send pleural fluid for studies, as ordered. 4. Discontinue aerosol treatments. 5. Beta-blockade will likely need to be initiated. However, I would wait until the patient's volume status has been optimized first. IMPRESSIONS: 1. Acute on chronic hypoxemic and hypercarbic respiratory failure Appears to be secondary to decompensated heart failure and subsequent pleural fluid accumulation. The patient does have a 2 L/min baseline supplemental oxygen requirement and also appears to be a chronic CO2 retainer. He does have radiographic evidence of significant bilateral pleural effusions, right greater than left. For now, the patient will be continued on diuretic therapy. Will discuss with radiology about the possibility of obtaining an ultrasound-guided thoracentesis for symptom relief today. Recommend sending pleural fluid studies as well. Transition from BiPAP to AVAPS and wean oxygen to maintain saturations 88 to 92%. Bronchodilators can be discontinued from my perspective, as the patient does not have a history of COPD or asthma. 2. 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 Renal function appears to be baseline. The patient has been followed by Dr. Whitley of cardiology on an outpatient basis. 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 3. Obstructive sleep apnea The patient has known obstructive sleep apnea and reports that he has been compliant with the use of nocturnal BiPAP therapy. During his last pulmonary office visit, he was ordered to undergo a re-titration study, which has yet to be completed. However, in the interim, the patient will remain on AVAPS while admitted to the hospital. TIME: 38 minutes of critical care time, independent of procedures, was spent addressing the patient's acute on chronic combined respiratory failure, decompensated heart failure, systemic amyloidosis with cardiac and renal involvement, obstructive sleep apnea, review of all data and collaboration with the care team. ([id number]) Code Visit 9xxxx: [id number] Critical care first hour
[2019-05-15 07:58] LABS: ALB/GLOB Ratio 0.8 RATIO (0.9-2.4); Globulin 2.5 g/dL (2.2-4.2); LDH 168 U/L (87-241); Protein, Total 4.4 g/dL (6.4-8.2)
--- NOTE | 2019-05-15 08:00 | US_ITS ---
PROCEDURE: ULTRASOUND GUIDED THORACENTESIS. DATE: May 15, 2019. INDICATION: Male, 68 years old. Right pleural effusion. PHYSICIAN: Rory Rosa M.D. PROCEDURE: The risks, benefits, and alternatives to the procedure were explained to the patient. The specific risks of bleeding, infection, and pneumothorax requiring chest tube insertion were discussed and accepted. Written informed consent was obtained. Ultrasonographic evaluation of the right lower pleural space was carried out. An adequate pocket was identified. The patient was placed in the sitting, upright position. The overlying skin was prepped and draped in sterile fashion. 1% lidocaine was administered subcutaneously for local anesthesia. Under ultrasound guidance, a 5 Kazakh thoracentesis needle/catheter system was advanced into the right posterior lower pleural fluid collection. Approximately 60 mL of clear fluid was drained. The catheter was removed, and a sterile dressing was applied. A specimen was collected and sent to the laboratory for analysis, as requested by the referring clinician. The patient tolerated the procedure well. A chest x-ray was ordered. US/Thoracentesis W US IMPRESSION: Ultrasound-guided right thoracentesis. Electronically Signed: Rory Rosa, at 10:59 EST , Service support ,
--- NOTE | 2019-05-15 09:05 | CON.PCM_ITS ---
Problem List (1) Bilateral pleural effusion Status: Acute (2) Acute respiratory failure with hypoxia and hypercapnia Status: Acute (3) Pericardial effusion without cardiac tamponade Status: Acute (4) JOSE LUIS (obstructive sleep apnea) Status: Chronic (5) Nephrotic syndrome Status: Chronic (6) Amyloidosis Status: Chronic (7) Diastolic CHF, acute on chronic Status: Acute Reason for Consult Date of Consultation: 05/15/19 Reason for Consultation: Gliosis, diastolic congestive heart failure, bilateral pleural effusions, proteinuria, nephrotic syndrome History of Present Illness: The patient is a 68 year old M previously seen by Dr. Whitley, recently admitted in early April 2019 with congestive heart failure and treated with diuretic therapy, as well as right-sided thoracentesis, CARLTON inhibitor and beta- ivelisse therapy. Subsequent to this the patient was diagnosed with amyloidosis of his kidney after kidney biopsy, with subsequent proteinuria. Patient underwent an echocardiogram recently on 04/08/2019 which showed the following: Moderate concentric left ventricular hypertrophy. Global scintillating LV consistent with amyloidosis. Stage 1 diastolic dysfunction. Trivial mitral valve insufficiency. Trivial tricuspid valve insufficiency. Unable to estimate RV systolic pressure due to insufficient tricuspid regurgitant envelope. Trivial to small pericardial effusion. Circumferential effusion. There are no echocardiographic indications of cardiac tamponade. At least moderate size left pleural effusion. Compared with echocardiogram dated 01/09/2019, no appreciable changes noted. Patient was discharged home, and it is uncertain whether the patient was taking his diuretic therapy as indicated. He returned last evening with acute shortne ss of breath, dyspnea, intermittently requiring BiPAP therapy, but fortunately avoided intubation. Patient was treated aggressively with IV diuretic therapy, diuresing around half a liter of fluid, and his pulmonary situation improved and he is no longer on BiPAP. Chest x-ray upon admission demonstrated severe right-sided pleural effusion effacing almost his complete entire right lung field. CT scan of his chest confirmed severe right pleural effusion, moderate left pleural effusion, and no significant pericardial effusion. Currently the patient is resting comfortably, in no acute distress. He does have some tachycardia which is a result most likely of his compressed right lung. [] Past Medical History Allergies/Adverse Reactions: Allergies No Known Allergies Allergy (Verified 05/14/19 15:21) Home Medications: Ambulatory Orders Medication Instructions Recorded Furosemide [Lasix] 40 mg PO BID 04/13/19 Melatonin 10 mg PO QHS 05/14/19 Past Medical History (Chronic Problems): Chronic Problems (Last Reviewed 04/27/19 @ 09:56 by HOLLY Kay) JOSE LUIS (obstructive sleep apnea) (Chronic) Hypertension (Chronic) Hypothyroidism (Chronic) Plasma cell dyscrasia (Chronic) Nephrotic syndrome (Chronic) Amyloidosis (Chronic) Diastolic CHF (Chronic) Proteinuria (Chronic) CHF (congestive heart failure) (Chronic) Essential (primary) hypertension (Chronic) Surgical History: no surgical history Psychiatric History: No pertinent psych hx - *Family History Maternal History Items: - - Mother patient unsure of the cause Paternal History Items: - - Patient not sure of father's cause of Lives: Spouse/ Significant Other Smoking Status: Former smoker Tobacco Use: Cigarettes Alcohol: None Drugs: None Review of Systems - Review of Systems General: Denies: Fever, Night Sweats, Fatigue Cardiovascular: Reports: Shortness of Breath, Orthopnea, PND, Peripheral Edema. Denies: Chest Discomfort, Palpitations, Lightheadedness, Dizziness, Near Syncope, Syncope Respiratory: Denies: Cough, Sputum Production, Hemoptysis Gastrointestinal: Denies: Hematemesis, Hematochezia, Melena Genitourinary: Denies: Dysuria, Hematuria Skin: Denies: Rash Subjectve: Patient has mild conversational dyspnea, but is hemodynamically stable. Objective: Vital Signs Temp Pulse Resp BP Pulse Ox 97.9 F 103 H 24 H 150/90 H 97 05/15/19 04:00 05/15/19 08:00 05/15/19 08:00 05/15/19 08:00 05/15/19 08:00 Oxygen Flow Rate (L/min) 4 Oxygen Delivery Method Nasal Cannula Weight: 209 lb 10.554 oz Body Mass Index (BMI) 31.8 Intake and Output for Last 24 Hours 05/13/19 05/14/19 05/15/19 23:59 23:59 23:59 Intake Total 240 / 240 240 / 240 Output Total 700 / 700 275 / 275 Balance -460 / -460 -35 / -35 General: Awake, Alert, Oriented x 3 HEENT: PERRL, EOMI, Sclera Non Icteric Neck: Supple, Good ROM, No Lymph Node Enlargement Lungs: Diminished Right Base, Dullness to Percussion-Right Cardiovascular: Regular Rhythm, Normal S1, Normal S2, No Murmurs, No Rubs, No Gallops Vascular: No Carotid Bruits, Normal Femoral Pulses, Normal Radial Pulses, Normal Dorsalis Pedal Pulse, Normal Posterior Tibial Pulses Abdomen: Bowel Sounds Present, Soft, Non Tender, No HSM, No Organomegaly Extremities: No Cyanosis, No Clubbing, No edema Neurological: No Focal Motor or Sensory Deficit 05/14/19 16:10: WBC 6.9, RBC 3.17 L, Hgb 10.2 L, Hct 34.0 L, MCV 107.3 H, MCH 32.2 H, MCHC 30.0 L, Plt Count 132 L, MPV 11.9, Immature Gran % (Auto) 0.400, Neut % (Auto) 78.4 H, Lymph % (Auto) 10.3 L, [place] % (Auto) 7.7, Eos % (Auto) 2.9, Baso % (Auto) 0.3, Absolute Neuts (auto) 5.4, Nucleated RBC % 0 05/14/19 16:10: Sodium 146 H, Potassium 5.5 H, Chloride 106, Carbon Dioxide 42.0 H, Anion Gap -2 L, BUN 29 H, Creatinine 1.14, Est GFR (MDRD) Af Amer 82, Est GFR (MDRD) Non-Af 68, BUN/Creatinine Ratio 25.4 H, Glucose 125 H, Calcium 9.1, Troponin I 0.039 05/14/19 16:10: Lactic Acid 1.0 05/14/19 16:10: B-Natriuretic Peptide 553.7 H 05/14/19 16:10: pH 7.18 L*, Bicarbonate Actual 43.7 H, POC Total CO2 47, Base Excess 15 H, O2 Saturation 98, ABG pCO2 117.3 H*, ABG pO2 143 H, Danielito Test POS 05/14/19 16:10: PT 14.0, INR 1.1, APTT 28.6 05/14/19 19:26: pH 7.35, Bicarbonate Actual 44.1 H, POC Total CO2 46, Base Excess 19 H, O2 Saturation 97, ABG pCO2 79.2 H*, ABG pO2 99, Danielito Test NA 05/15/19 04:15: WBC 4.8, RBC 2.71 L, Hgb 8.8 L, Hct 28.3 L, MCV 104.4 H, MCH 32.5 H, MCHC 31.1 L, Plt Count 95 L, MPV 11.9, Immature Gran % (Auto) 0.600, Neut % (Auto) 77.1 H, Lymph % (Auto) 14.0 L, [place] % (Auto) 7.9, Eos % (Auto) 0.2, Baso % (Auto) 0.2, Absolute Neuts (auto) 3.7, Nucleated RBC % 0 05/15/19 04:15: PT 14.8, INR 1.2 05/15/19 04:15: Sodium 146 H, Potassium 4.6, Chloride 104, Carbon Dioxide 42.0 H , Anion Gap 0 L, BUN 33 H, Creatinine 1.06, Est GFR (MDRD) Af Amer 89, Est GFR (MDRD) Non-Af 74, BUN/Creatinine Ratio 31.1 H, Glucose 97, Calcium 8.7 Rhythm: EKG: ECHO: Stress Test: Cardiac Cath: PCI: CT Surgery: Holter monitor: EPS: PPM: CXR: Chest CT Scan: Assessment/Plan 1. Diastolic heart failure: The patient has evidence of amyloidosis seen on echocardiogram as well as confirm with renal biopsy. This is now the patient's second admission for congestive heart failure and right-sided pleural effusion the first of which was in April 2019 requiring right-sided thoracenteses. Since being diagnosed with amyloidosis Dr. Elam has applied chemotherapy which has improved his proteinuria a significant amount however he still has around 1 g of protein per day in his urine. At this point the patient has improved with BiPAP therapy and IV diuretic therapy however he has a very large right pleural effusion which most likely would benefit from thoracentesis. There are some concerns about protein loss using a Pleur-evac for his second admission, so I believe it is reasonable to proceed with right-sided thoracentesis today to provide some relief and hopefully improve his heart rate. I would recommend a repeat echocardiogram to determine if his pericardial effusion and is in any way worsened over the last month. Given the patient's amyloid in his kidneys he may have difficulty achieving diuretic threshold with traditional Lasix therapy. Would recommend continuing IV Lasix therapy at 40 mg IV twice daily to provide gentle diuresis to avoid acute on chronic renal failure. Patient may require consultation with Dr. Rowell for possible pleurodesis. In addition would recommend implementing beta-ivelisse therapy to slow his heart down to provide longer diastolic filling times. Once his thoracentesis is been completed, would start with Lopressor 25 mg p.o. twice daily. In addition we need to ensure that the patient does not have a ischemic component to his diastolic dysfunction, and apparently he has not had a stress test as of this time. Once he has had his right-sided thoracentesis would recommend either a dobutamine echocardiogram, or a Lexiscan/MPI to evaluate for possible sources of ischemia. If his stress test is abnormal, he may require diagnostic coronary angiogram. After speaking with Dr. Serrano and Dr. Elam, I believe it is reasonable to hold off on pleural vacs at this time as this may contribute to additional protein wasting. Patient has had a positive response to chemotherapy with respect to his amyloidosis, and may require additional chemotherapy per Dr. Elam. 2. This was discussed with Dr. Serrano. Patient has a appointment for thoracentesis at 915 this morning, and will reassess at that time. Also discussed with Dr. Elam. Thank you very much for the opportunity to participate in the cardiac care of your patient. Consultation time took place between 745 and 8:15 AM. Code Visit Inpatient E&M: 69010 Init Hosp L2
--- NOTE | 2019-05-15 09:14 | PN_ITS ---
Patient Problems: Active and Suspected Problems (Last Reviewed 04/27/19 @ 09:56 by Lavern Robles NP-C) Bilateral pleural effusion (Acute) Acute respiratory failure with hypoxia and hypercapnia (Acute) Pericardial effusion without cardiac tamponade (Acute) Closed head injury without loss of consciousness (Acute) Reason for Visit: Patient seen and examined. He is off BiPAP and on 4 L of oxygen by nasal cannula. He looks much more alert today. He is elevated related to stage III and denies any shortness of breath, chest pain or palpitations, fever chills, dizziness, nausea vomiting or diarrhea. Review systems otherwise negative. He is due to have thoracentesis today. He still remains tachypneic and tachycardic. Potassium is down to 4.6 from 5.5 on admission. Hemoglobin is down to 8.8 from 10.2 on admission. Vitals/I&O's: Vital Signs Temp Pulse Resp BP Pulse Ox 97.9 F 103 H 24 H 150/90 H 97 05/15/19 04:00 05/15/19 08:00 05/15/19 08:00 05/15/19 08:00 05/15/19 08:00 Oxygen Flow Rate (L/min) 4 Oxygen Delivery Method Nasal Cannula Weight: 209 lb 10.554 oz Body Mass Index (BMI) 31.8 Intake and Output for Last 24 Hours 05/13/19 05/14/19 05/15/19 23:59 23:59 23:59 Intake Total 240 / 240 240 / 240 Output Total 700 / 700 275 / 275 Balance -460 / -460 -35 / -35 General: Alert, Cooperative, No apparent distress, HEENT: Atraumatic, PERRLA, EOMI, Normocephalic Oral: Dry Mucosa Neck: Supple, No JVD, Negative Carotid Bruits Lungs: Tachypneic, minimal breath sounds bibasally, no wheezes or crackles. on 4L of oxygen by nasal canula Cardiovascular: Regular rate, Regular Rhythm, Normal S1, Normal S2, No murmurs Abdomen: Bowel Sounds Present, Soft, Non Tender, Non-Distended, No Hepato- splenomegaly Extremities: No clubbing, No cyanosis, Capillary Refill Less than 3 Seconds, - - bilateral LE 2+ pitting edema Skin: - - portacath in right side of chest Musculoskeletal: No Tenderness to Palpation of Joints or Extremities Lymphatic: No Cervical, Supraclavicular, or Inguinal Adenopathy Neurological: Cranial nerves II-XII grossly intact, Neuro grossly intact, Motor Exam 5/5 strength throughout Psych/Mental Status: normal affect Microbiology Past 72 Hours 05/14/19 16:15 Mucosa - Nose Influenza Types A,B Direct FA (PATO) - Final Laboratory Results 05/14/19 16:10: WBC 6.9, RBC 3.17 L, Hgb 10.2 L, Hct 34.0 L, MCV 107.3 H, MCH 32.2 H, MCHC 30.0 L, RDW Std Deviation 53.0 H, RDW Coeff of Babita 13.5, Plt Count 132 L, MPV 11.9, Immature Gran % (Auto) 0.400, Neut % (Auto) 78.4 H, Lymph % (Auto) 10.3 L, [place] % (Auto) 7.7, Eos % (Auto) 2.9, Baso % (Auto) 0.3, Absolute Neuts (auto) 5.4, Absolute Lymphs (auto) 0.71 L, Nucleated RBC % 0 05/14/19 16:10: Sodium 146 H, Potassium 5.5 H, Chloride 106, Carbon Dioxide 42.0 H, Anion Gap -2 L, BUN 29 H, Creatinine 1.14, Estim Creat Clear Calc 62.02, Est GFR (MDRD) Af Amer 82, Est GFR (MDRD) Non-Af 68, BUN/Creatinine Ratio 25.4 H, Glucose 125 H, Calcium 9.1, Troponin I 0.039 05/14/19 16:10: Lactic Acid 1.0 05/14/19 16:10: B-Natriuretic Peptide 553.7 H 05/14/19 16:10: Specimen Type ART, Sample Site L Radial, pH 7.18 L*, Bicarbonate Actual 43.7 H, POC Total CO2 47, Base Excess 15 H, O2 Saturation 98, ABG pCO2 117.3 H*, ABG pO2 143 H, Danielito Test POS, O2 Delivery Device Nasal Can, Liter Flow 4.0, Blood Gas Notified Whom ED , Blood Gas Notified Time 1600 05/14/19 16:10: PT 14.0, INR 1.1, APTT 28.6 05/14/19 19:26: Specimen Type ART, Sample Site R Radial, pH 7.35, Bicarbonate Actual 44.1 H, POC Total CO2 46, Base Excess 19 H, O2 Saturation 97, O2 % 40, ABG pCO2 79.2 H*, ABG pO2 99, Danielito Test NA, Respiration Rate 12, O2 Delivery Device Bi / C PAP, EPAP 7, IPAP 20, Blood Gas Notified Whom LILIANA FOWLER, Blood Gas Notified Time 19205/15/19 04:15: WBC 4.8, RBC 2.71 L, Hgb 8.8 L, Hct 28.3 L, MCV 104.4 H, MCH 32.5 H, MCHC 31.1 L, RDW Std Deviation 50.1 H, RDW Coeff of Babita 13.6, Plt Count 95 L, MPV 11.9, Immature Gran % (Auto) 0.600, Neut % (Auto) 77.1 H, Lymph % (Auto) 14.0 L, [place] % (Auto) 7.9, Eos % (Auto) 0.2, Baso % (Auto) 0.2, Absolute Neuts (auto) 3.7, Absolute Lymphs (auto) 0.67 L, Nucleated RBC % 0 05/15/19 04:15: PT 14.8, INR 1.2 05/15/19 04:15: Sodium 146 H, Potassium 4.6, Chloride 104, Carbon Dioxide 42.0 H , Anion Gap 0 L, BUN 33 H, Creatinine 1.06, Estim Creat Clear Calc 66.70, Est GFR (MDRD) Af Amer 89, Est GFR (MDRD) Non-Af 74, BUN/Creatinine Ratio 31.1 H, Glucose 97, Calcium 8.7 05/15/19 04:15: Lactate Dehydrogenase 168, Total Protein 4.4 L, Globulin 2.5, Albumin/Globulin Ratio 0.8 L Diagnostic Data Brain CT 05/14/19 15:45 IMPRESSION: No acute intracranial or calvarial abnormality. There is no major interval change. Electronically Signed: Landry Newton DO at 17:16 EST Tel [phone], Service support , Chest X-Ray 05/14/19 15:45 IMPRESSION: Moderate to large right pleural effusion with volume loss and atelectasis as well as a small left pleural effusion with left basilar atelectasis. Electronically Signed: Rory Rosa, at 15:58 EST , Service support , Chest CT 05/14/19 16:04 IMPRESSION: 1. Larger bilateral pleural effusions with atelectasis. 2. Fracture of the lateral left third rib. 3. Small pericardial effusion. 4. Degenerative changes of the thoracic spine. 5. Irregularity of the left 10th rib thought to represent a remote fracture. Electronically Signed: Landry Newton, DO at 17:22 EST Tel [phone], Service support , Current Medications Enoxaparin Sodium (Lovenox) 40 mg SC DAILY COLLEEN Furosemide (Lasix) 40 mg IV BIDLX COLLEEN Glucagon () 1 mg IM .X1 PRN PRN Reason: Hypoglycemia Heparin Sodium (Beef Lung) () 50 units IV UD PRN PRN Reason: Port-a-Cath (VAD)Heparin Flush Dextrose (Dextrose 10%-Water) 250 mls @ 999 mls/hr IV .Q16M PRN; Protocol PRN Reason: HYPOGLYCEMIA Sodium Chloride () 10 - 40 ml IV UD PRN PRN Reason: Port-a-Cath (VAD) Flush Sodium Chloride (0.9% Nacl (Sterile) Posiflush) 10 - 40 ml IV UD PRN PRN Reason: Port access or dressing change STROKE Vital Signs/Narrative: Vital Signs Pulse Resp BP Pulse Ox 05/15/19 08:00 103 H 24 H 150/90 H 97 05/15/19 07:00 105 H 18 137/91 H 93 05/15/19 06:37 101 H 28 H 92 05/15/19 06:00 104 H 19 H 144/91 H 93 05/15/19 05:50 105 H 29 H 96 Medical Necessity - Tobacco Use Smoking Status: Former smoker Tobacco Use: Cigarettes Assessment/Plan All Active Problems (Last Reviewed 04/27/19 @ 09:56 by Lavern Robles, [place]-C) Bilateral pleural effusion (Acute) Acute respiratory failure with hypoxia and hypercapnia (Acute) Pericardial effusion without cardiac tamponade (Acute) Closed head injury without loss of consciousness (Acute) Debility (Acute) Weakness of both legs (Acute) Falls (Acute) Acute and chronic respiratory failure with hypercapnia (Acute) Acute on chronic diastolic heart failure (Acute) Diastolic CHF, acute on chronic (Acute) 68 y/o admitted with a complaint of shortness of breath 1. Acute on chronic hypoxic and hypercapnic respiratory failure due to bilateral pleural effusions * Chest CT showed bilateral large pleural effusions * now off BIPAP * breathing treatments prn with duonebs * for thoracentesis today * pulmonology on board * cardiology consulted, per pulmonology to optimise diuresis. * of note, had similar presentation 1 month ago, and required right sided thoracentesis with removal of 2L of fluid * will check PT/INR and PTT in preparation for thoracentesis tomorrow * patient counseled about need for intubation if he doesnt tolerate or do well on BiPAP * 2. Bilateral recurrent pleural effusion, likely due to acute on chronic heart failure * CT showed large bilateral pleural effusion with atelectasis. * as under 1. * on IV lasix 40mg bid * restrict fluid to 1500cc daily. Intake and output chart * heart failure likely due to amyloidosis * 3. Respiratory acidosis due to acute on chronic hypercapnic and hypoxic respiratory failure * as under 1 * 4. acute on chronic HFpEF * BNP was ~ 555, which is actually the lowest it has been * 2D echo(04/08/2019):stage 1 diastolic dysfunction, with evidence of amyloidosis. * will start on IV lasix 40mg bid * monitor intake output chart; fluid restriction to 1500cc daily * for thoracentesis today for pleural effusion * 5. hyperkalemia: Potassium down to 4.6, from 5.5 on admission. received kayexalate on admission. 6. History of plasma cell dyscrasia: follow up with oncology DVT prophylaxis: lovenox Code status: full code. Code Visit Inpatient E&M: 22773 Subs Hosp L3
--- NOTE | 2019-05-15 09:18 | ECHOL_ITS ---
Reason For Study: CHF Procedure This was a limited 2D transthoracic echocardiogram. Myocardial strain analysis was performed in this exam to aid in the assessment of cardiac function. Exam performed portable in ICU/CCU. Left Ventricle Mild concentric left ventricular hypertrophy. Global LV scintillation c/w amyloidosis. The estimated ejection fraction is 65 %. The global longitudinal strain = -14.4% (abnormal). No regional wall motion abnormalities noted. Right Ventricle Normal size and thickness. A moderator band is seen in the right ventricle. Normal systolic function. Atria Normal left atrium. Normal right atrium. Mild collapse/invagination of the right atrium. Normal atrial septum. Mitral Valve The mitral valve is structurally normal. No prolapse or stenosis seen. Tricuspid Valve Normal tricuspid valve. Unable to estimate RV systolic pressure due to insufficient tricuspid regurgitant envelope. Aortic Valve Normal aortic valve. Trisinus/trileaflet aortic valve. Pulmonic Valve Normal pulmonic valve. Great Vessels Normal aortic root. Normal arch. Normal inferior vena cava. Inferior vena cava collapse with sniff. Pericardium/Pleural Trivial pericardial effusion. There are no echocardiographic indications of cardiac tamponade. Moderate size left pleural effusion. MMode/2D Measurements & Calculations LVIDd: 4.8 cm IVSd: 1.4 cm LVAd ap4: 25.5 cm2 LVIDs: 3.4 cm LVPWd: 1.3 cm EDV(MOD-sp4): 76.3 ml FS: 28.8 % EDV(sp4-el): 73.2 ml LVAs ap4: 16.0 cm2 ESV(MOD-sp4): 34.3 ml ESV(sp4-el): 31.9 ml EF(MOD-sp4): 55.1 % EF(sp4-el): 56.4 % SV(MOD-sp4): 42.1 ml SV(sp4-el): 41.2 ml Interpretation Summary Mild concentric left ventricular hypertrophy. The estimated ejection fraction is 65 %. Mild collapse/invagination of the right atrium. The global longitudinal strain = -14.4% (abnormal). Trivial pericardial effusion. There are no echocardiographic indications of cardiac tamponade. Moderate size left pleural effusion. Global LV scintillation c/w amyloidosis. Compared with echo report dated 04/08/2019, no appreciable changes noted. No interim change in pericardial effusion. Ordering Physician: Orlando Lunsford Referring Physician: Gerry Rossi Performed By: Lyn Kwon, NIDHI, RVT
--- NOTE | 2019-05-15 09:45 | RAD_ITS ---
STUDY: X-RAY CHEST REASON FOR EXAM: Male, 68 years old. POST THORACENTESIS - RT SIDE. R/O PTX TECHNIQUE: AP inspiration and expiration views. COMPARISON: Comparison is made with prior examination dated May 14, 2019. FINDINGS: The patient is status post right thoracentesis. Mild residual right pleural parenchymal changes are seen. There is no evidence of pneumothorax. Stable appearance of the left hemithorax. RAD/Chest Insp/Exp 2 View IMPRESSION: Status post right thoracentesis. There is no evidence of pneumothorax. Electronically Signed: Rory Rosa, at 12:31 EST , Service support ,
[2019-05-15 10:21] LABS: Cytology, Body Fluid / CSF SEE PATHOLOGY REPORT
[2019-05-15] MEDS: Furosemide 40 MG/4 ML Vial IV ×2 (10:42→17:38)
[2019-05-15 11:10] LABS: Body Fluid Mononuclear WBC # 0.028 10^3/uL; Body Fluid Mononuclear WBC % 96.5 %; Body Fluid Polynuclear WBC # 0.001 10^3/uL; Body Fluid Polynuclear WBC % 3.5 %; White Blood Count/Body Fluid 0.029 10^3/uL
[2019-05-15 11:11] LABS: Glucose, Body Fluid 105 mg/dL (40-70); LDH,Body Fluid 60 Units/l (Not Establ.); Protein, Body Fluid 1.2 g/dL (Not Establ.)
[2019-05-15 11:59] LABS: Appearance/Body Fluid CLEAR; Auto B Fluid Analyzer BKGD Ct COUNTS W/IN LIMITS (W/IN LIMITS); Color/Body Fluid COLORLESS; Source- Body Fluid THORACENTESIS
[2019-05-15 12:09] LABS: Red Cell Count/Body Fluid 3 /mm3
[2019-05-15 12:32] LABS: Body Fluid QC Type(s) BF4Q; Lymphocytes 48 %; Mesothelial Cells 8 %; Monocytes 20 %; Neutrophil (Segs) 8 %; Other Cell Type/BF 16 %
--- NOTE | 2019-05-15 12:40 | CASEMGMT ---
Addendum entered by Sumi Bland 05/15/19 17:01: 1530: PT/OT evals have been completed and SNF is recommended. RN CM to room to talk with both pt and Juany, who is at bedside, and they were made aware of recommendations. Pt stated initially he wanted to go home but then stated, well I'll just go over there. Upon further discussion, pt able to confirm he was referring to TCU. He then stated, I don't want to go to a [facility], but then a few sentences later, stated, well then I guess I'll have to go to a m[facility]p. Also, discussed concern with getting treatment @ Dr Crowder's office, which is scheduled for . Pt and Juany indecisive as to if they wish for pt to go to SNF or home w/[facility]. CORY, Manuela, mona and states will provide a list of other SNF's for pt/Juany to look over. Original Note: RN CM ASSET MANAGER CM to room to meet with patient for initial transition planning/care coordination assessment. RN CM introduced self and role at [facility]. Pt voices understanding and consents to assessment at this time. Pt resting in bed in no distress at this time. Pt is alert but forgetful and a poor historian. He was able to provide some information to RN CM, but then would make other comments and give answers that conflicted what he had just stated. Pt gave this RN CM to contact his GF/Significant other, Juany Curiel, who is also pt's Healthcare POA, to go over questions/information with her. Call placed to Juany at this time and the following information was confirmed/obtained by her. PCP: Dr Gerry Pate Specialists: Dr Crowder Preferred Pharmacy: [facility] Insurance: [facility] A only Prescription Benefit: Juany states she is not sure if pt has prescription coverage. Anticipate pt will be discharged on anti-coagulatant for bilat PE. Call placed to [facility] and spoke with pharmacist. He states [facility] is listed in their system and that pt just had a prescription filled in May, 2019, but he was unable to confirm pt has prescription benefits now. Phone number provided by pharmacist for [facility]: . Call placed to this number, and message came on, stating this is [facility] and [facility] 2019 [facility] Basic Formul[facility] lists both Eliquis and Xarelto. CM to follow @ discharge to for coverage/arce check on new medications. Living Will/HPOA: Has both LW and HCPOA, who is his signif other/GF,. Juany Curiel LNOK: Juany Curiel, Signif other/POA. Living Arrangements: Lives with Juany Curiel and her son, Ishmael Curiel. Juany states pt is able to bath/dress himself but she manages all home mgmt tasks. They live in a 2-story home but is [facility]. There are 12 steps to enter through the garage into the home but Juany states he has fallen down them backwards before so he does not use them anymore. She states he enters into the home through the front door where there are 4 steps with rails and she states he manages them pretty well. Transportation: Juany states pt no longer drives. Juany states she drives but her car is not running at this time. She states her son, Ishmael, or her 2 daughters assist with transportation and she denies concerns at this time. DME: Pt has the following DME: hand held shower, cane, rollator, O2 via N/C continuously. Juany stated pt usually wears his O2 @ 2 L/M and that he only has a concentrator, no portability. Juany states pt had all the small tanks sent back because he didn't like them and he never leaves the house anymore. Juany states pt hasn't went anywhere for about 6 months. Oxygen is through [facility] [place]. Call placed to [facility] and they confirmed they provide oxygen to pt and current orders are for 2-3 L/M continuously. They also confirmed pt only has concentrator, no portability. HHC/SNF: Hx of TCU--just discharged 04/28/19. No hx of HHC. Discussed discharge planning w/Juany. She states, whatever Cipriano wants. She states she is agreeable to him returning back to TCU if he is agreeable and she is also agreeable to [facility] if he chooses. When KYM ACKERMAN discussed discharge planning with pt, he voiced he wishes to return home and is agreeable to HHC and stated wanted [facility]. PT/OT evals pending and pt agreeable to waiting on their evals/recommendations to make a decision. CM to follow for home oxygen needs and any further discharge planning/needs. Juany voices no further concerns at this time. Advised her to ask for CM if any further questions/concerns/needs arise. Voices understanding. PLAN: TBD. SNF vs Home w/HHC. PT/OT evals pending. CORY Roy, made aware. Anticipate pt will discharge on anti-coag for PE. If pt discharges home, CM to follow @ discharge to for coverage/arce check on new medications. Pt will need Home oxygen testing completed prior to discharge. Pt wears O2 @ 2L/M @ baseline. If pt requires more than 2 L/M N/C, will need new script for O2. Also, pt does not have portable O2 tank. Karlo will need to deliver portable O2 to pt prior to discharge if he does go home. Lin WEAVERN RN CM
--- NOTE | 2019-05-15 15:48 | CASEMGMT ---
CORY gave patient's significant other a list of local SNF's that are in network with his insurance. He may be getting a cancer treatment of some kind next week. His first choice was TCU and he is on the list. However, he may not be able to go to TCU depending on the cancer treatment. CORY will follow up with Dr Crowder's office Saturday. Manuela BURGER
[2019-05-15] MEDS: 0.9% Saline Lock 10 ML Syringe IV (17:38)
[2019-05-16] VITALS (16 sets, daily range): BP systolic 120–144; BP diastolic 73–95; PULSE 78–111; RESP 12–30; TEMP 36.3–37.4; O2SAT 95–99
--- NOTE | 2019-05-16 03:35 | NURSING ---
Pt. has had bipap on and off all night. Can only tolerated for 1-2 hours at a time.
[2019-05-16] MEDS: 0.9% Saline Lock 10 ML Syringe IV ×2 (05:19→10:26)
[2019-05-16 06:00] LABS: Absolute Lymphocyte Count 0.77 X10^3/uL (0.83-4.51); Basophil# 0.02 X10^3/uL; Basophil% 0.5 % (0-1); Hematocrit 28.3 % (40-54); Hemoglobin 8.8 g/dL (13.0-16.5); Lymphocyte # 0.77 X10^3/ul (4.0); Lymphocyte % 18.4 % (19-41); Mean Corp Hgb Conc 31.1 g/dL (32-36); Mean Corpuscular Hgb 31.9 pg (27.0-32.0); Mean Corpuscular Volume 102.5 fL (80-94); Mean Platelet Vol. 12.1 fl (6.2-12.0); Monocyte# 0.32 X10^3/uL; Monocyte% 7.7 % (0-10); NRBC Flagged by Analyzer 0 % (0-5); Neutrophil # 3.04 X10^3/uL (2.7-7.7); Neutrophil % 72.7 % (47-70); POSITIVE COUNT YES; RBC Distribution Width CV 13.6 % (11.6-14.6); RBC Distribution Width SD 49.8 fl (35.1-43.9); Red Blood Count 2.76 M/mm3 (4.6-6.2); White Blood Count 4.2 K/mm3 (4.4-11.0)
[2019-05-16 06:01] LABS: Platelet Count 91 K/mm3 (150-450)
[2019-05-16 06:13] LABS: Anion Gap 2 (5-15); BUN 34 mg/dL (7-18); BUN/Creat Ratio 33.3 RATIO (10-20); Calcium,Total 8.5 mg/dL (8.5-10.1); Chloride 101 mmol/L (98-107); Creatinine, Serum 1.02 mg/dL (0.70-1.30); EST Glomerular Filtration Rate 77 mL/min (>60); Est Glom Filt Rate - Afr Amer 93 mL/min (>60); Estimated Creatinine Clearance 69.31 ml/min; Glucose 92 mg/dL (74-106); Potassium 3.6 mmol/L (3.5-5.1); Sodium Level 145 mmol/L (136-145)
--- NOTE | 2019-05-16 07:57 | PCM.PN.PUL ---
Patient Problems: Active and Suspected Problems (Last Reviewed 04/27/19 @ 09:56 by Lavern Robles NP-C) Bilateral pleural effusion (Acute) Acute respiratory failure with hypoxia and hypercapnia (Acute) Pericardial effusion without cardiac tamponade (Acute) Closed head injury without loss of consciousness (Acute) Subjective: The patient was seen and examined at the bedside this morning. Events from the last 24 hours have been reviewed. The patient is currently afebrile, hemodynamically stable and maintaining appropriate oxygen saturations on nasal cannula supplemental O2. The patient underwent an ultrasound-guided thoracentesis yesterday of his right hemithorax. According to documentation, only 60 mL's of fluid was aspirated from the patient's pleural space. There is no documentation as to why only such a small amount of fluid was aspirated. Objective: The patient's most recent lab work, culture data and imaging studies have all been personally reviewed. Repeat surface echocardiogram revealed mild concentric LVH with an ejection fraction of 65%. Pleural fluid Gram stain showed no organisms. - Physical Exam Vitals/I&O's: Vital Signs Temp Pulse Resp BP Pulse Ox 98.1 F 100 23 H 127/86 H 97 05/16/19 03:37 05/16/19 06:49 05/16/19 04:02 05/16/19 03:37 05/16/19 04:02 Oxygen Flow Rate (L/min) [3] 4 Oxygen Flow Rate (L/min) [2] 4 Oxygen Flow Rate (L/min) [1 ( 5 Initial Baseline)] Oxygen Flow Rate (L/min) 4 Oxygen Delivery Method [3] Nasal Cannula Oxygen Delivery Method [2] Nasal Cannula Oxygen Delivery Method [1 ( Nasal Cannula Initial Baseline)] Oxygen Delivery Method Nasal Cannula Weight: 203 lb 11.314 oz Body Mass Index (BMI) 31.8 Intake and Output for Last 24 Hours 05/14/19 05/15/19 05/16/19 23:59 23:59 23:59 Intake Total 240 / 240 1000 / 1000 400 / 400 Output Total 700 / 700 3175 / 3175 Balance -460 / -460 -2175 / -2175 400 / 400 General: Alert, Cooperative, No apparent distress HEENT: Atraumatic, PERRLA, Normocephalic Oral: No Gingival or Mucosal Lesions/ Ulcerations Neck: Supple, No Nodes, Trachea Midline Lungs: No rhonchi, No wheeze, No rales, Diminished Cardiovascular: Regular rate, Regular Rhythm, Normal S1, Normal S2 Abdomen: Bowel Sounds Present, Soft, Non Tender Extremities: No clubbing, No cyanosis Skin: No breakdown Musculoskeletal: No Tenderness to Palpation of Joints or Extremities Lymphatic: No Cervical, Supraclavicular, or Inguinal Adenopathy Neurological: Cranial nerves II-XII grossly intact, Neuro grossly intact Psych/Mental Status: Normal Affect, Appropriate Labs (Last 48 Hours) 05/14/19 05/14/19 05/14/19 16:10 16:10 16:10 WBC 6.9 RBC 3.17 L Hgb 10.2 L Hct 34.0 L MCV 107.3 H MCH 32.2 H MCHC 30.0 L RDW Std Deviation 53.0 H RDW Coeff of Babita 13.5 Plt Count 132 L MPV 11.9 Immature Gran % (Auto) 0.400 Neut % (Auto) 78.4 H Lymph % (Auto) 10.3 L [place] % (Auto) 7.7 Eos % (Auto) 2.9 Baso % (Auto) 0.3 Absolute Neuts (auto) 5.4 Absolute Lymphs (auto) 0.71 L Nucleated RBC % 0 PT INR APTT Specimen Type Sample Site pH Bicarbonate Actual POC Total CO2 Base Excess O2 Saturation O2 % ABG pCO2 ABG pO2 Danielito Test Respiration Rate O2 Delivery Device Liter Flow EPAP IPAP Blood Gas Notified Whom Blood Gas Notified Time Sodium 146 H Potassium 5.5 H Chloride 106 Carbon Dioxide 42.0 H Anion Gap -2 L BUN 29 H Creatinine 1.14 Estim Creat Clear Calc 62.02 Est GFR (MDRD) Af Amer 82 Est GFR (MDRD) Non-Af 68 BUN/Creatinine Ratio 25.4 H Glucose 125 H Lactic Acid 1.0 Calcium 9.1 Lactate Dehydrogenase Troponin I 0.039 B-Natriuretic Peptide Total Protein Globulin Albumin/Globulin Ratio Fluid Source Fluid Color Fluid Appearance Fluid WBC Fluid RBC Fluid Tot Cell Count Fld Polynuclear WBCs # Fld Polynuclear WBCs % Fluid Mononuclear WBCs Fld Mononuclear WBCs % Fluid Neutrophils Fluid Lymphocytes Fluid Monocytes Fld Mesothelial Cells Fluid Other Cells Fl Pathologist Comment Fluid Glucose Fluid Total Protein Fluid LDH Fluid Comment 2 Miscellaneous Cytology 05/14/19 05/14/19 05/14/19 16:10 16:10 16:10 WBC RBC Hgb Hct MCV MCH MCHC RDW Std Deviation RDW Coeff of Babita Plt Count MPV Immature Gran % (Auto) Neut % (Auto) Lymph % (Auto) [place] % (Auto) Eos % (Auto) Baso % (Auto) Absolute Neuts (auto) Absolute Lymphs (auto) Nucleated RBC % PT 14.0 INR 1.1 APTT 28.6 Specimen Type ART Sample Site L Radial pH 7.18 L* Bicarbonate Actual 43.7 H POC Total CO2 47 Base Excess 15 H O2 Saturation 98 O2 % ABG pCO2 117.3 H* ABG pO2 143 H Danielito Test POS Respiration Rate O2 Delivery Device Nasal Can Liter Flow 4.0 EPAP IPAP Blood Gas Notified Whom ED Blood Gas Notified Time 1600 Sodium Potassium Chloride Carbon Dioxide Anion Gap BUN Creatinine Estim Creat Clear Calc Est GFR (MDRD) Af Amer Est GFR (MDRD) Non-Af BUN/Creatinine Ratio Glucose Lactic Acid Calcium Lactate Dehydrogenase Troponin I B-Natriuretic Peptide 553.7 H Total Protein Globulin Albumin/Globulin Ratio Fluid Source Fluid Color Fluid Appearance Fluid WBC Fluid RBC Fluid Tot Cell Count Fld Polynuclear WBCs # Fld Polynuclear WBCs % Fluid Mononuclear WBCs Fld Mononuclear WBCs % Fluid Neutrophils Fluid Lymphocytes Fluid Monocytes Fld Mesothelial Cells Fluid Other Cells Fl Pathologist Comment Fluid Glucose Fluid Total Protein Fluid LDH Fluid Comment 2 Miscellaneous Cytology 05/14/19 05/15/19 05/15/19 19:26 04:15 04:15 WBC 4.8 RBC 2.71 L Hgb 8.8 L Hct 28.3 L MCV 104.4 H MCH 32.5 H MCHC 31.1 L RDW Std Deviation 50.1 H RDW Coeff of Babita 13.6 Plt Count 95 L MPV 11.9 Immature Gran % (Auto) 0.600 Neut % (Auto) 77.1 H Lymph % (Auto) 14.0 L [place] % (Auto) 7.9 Eos % (Auto) 0.2 Baso % (Auto) 0.2 Absolute Neuts (auto) 3.7 Absolute Lymphs (auto) 0.67 L Nucleated RBC % 0 PT 14.8 INR 1.2 APTT Specimen Type ART Sample Site R Radial pH 7.35 Bicarbonate Actual 44.1 H POC Total CO2 46 Base Excess 19 H O2 Saturation 97 O2 % 40 ABG pCO2 79.2 H* ABG pO2 99 Danielito Test NA Respiration Rate 12 O2 Delivery Device Bi / C PAP Liter Flow EPAP 7 IPAP 20 Blood Gas Notified Whom [facility] Blood Gas Notified Time 1920 Sodium Potassium Chloride Carbon Dioxide Anion Gap BUN Creatinine Estim Creat Clear Calc Est GFR (MDRD) Af Amer Est GFR (MDRD) Non-Af BUN/Creatinine Ratio Glucose Lactic Acid Calcium Lactate Dehydrogenase Troponin I B-Natriuretic Peptide Total Protein Globulin Albumin/Globulin Ratio Fluid Source Fluid Color Fluid Appearance Fluid WBC Fluid RBC Fluid Tot Cell Count Fld Polynuclear WBCs # Fld Polynuclear WBCs % Fluid Mononuclear WBCs Fld Mononuclear WBCs % Fluid Neutrophils Fluid Lymphocytes Fluid Monocytes Fld Mesothelial Cells Fluid Other Cells Fl Pathologist Comment Fluid Glucose Fluid Total Protein Fluid LDH Fluid Comment 2 Miscellaneous Cytology 05/15/19 05/15/19 05/15/19 04:15 04:15 09:45 WBC RBC Hgb Hct MCV MCH MCHC RDW Std Deviation RDW Coeff of Babita Plt Count MPV Immature Gran % (Auto) Neut % (Auto) Lymph % (Auto) [place] % (Auto) Eos % (Auto) Baso % (Auto) Absolute Neuts (auto) Absolute Lymphs (auto) Nucleated RBC % PT INR APTT Specimen Type Sample Site pH Bicarbonate Actual POC Total CO2 Base Excess O2 Saturation O2 % ABG pCO2 ABG pO2 Danielito Test Respiration Rate O2 Delivery Device Liter Flow EPAP IPAP Blood Gas Notified Whom Blood Gas Notified Time Sodium 146 H Potassium 4.6 Chloride 104 Carbon Dioxide 42.0 H Anion Gap 0 L BUN 33 H Creatinine 1.06 Estim Creat Clear Calc 66.70 Est GFR (MDRD) Af Amer 89 Est GFR (MDRD) Non-Af 74 BUN/Creatinine Ratio 31.1 H Glucose 97 Lactic Acid Calcium 8.7 Lactate Dehydrogenase 168 Troponin I B-Natriuretic Peptide Total Protein 4.4 L Globulin 2.5 Albumin/Globulin Ratio 0.8 L Fluid Source Fluid Color Fluid Appearance Fluid WBC Fluid RBC Fluid Tot Cell Count Fld Polynuclear WBCs # Fld Polynuclear WBCs % Fluid Mononuclear WBCs Fld Mononuclear WBCs % Fluid Neutrophils Fluid Lymphocytes Fluid Monocytes Fld Mesothelial Cells Fluid Other Cells Fl Pathologist Comment Fluid Glucose 105 H Fluid Total Protein 1.2 Fluid LDH 60 Fluid Comment 2 Miscellaneous Cytology 05/15/19 05/15/19 05/16/19 09:45 09:45 05:10 WBC 4.2 L RBC 2.76 L Hgb 8.8 L Hct 28.3 L MCV 102.5 H MCH 31.9 MCHC 31.1 L RDW Std Deviation 49.8 H RDW Coeff of Babita 13.6 Plt Count 91 L MPV 12.1 H Immature Gran % (Auto) 0.700 Neut % (Auto) 72.7 H Lymph % (Auto) 18.4 L [place] % (Auto) 7.7 Eos % (Auto) 0.0 Baso % (Auto) 0.5 Absolute Neuts (auto) 3.0 Absolute Lymphs (auto) 0.77 L Nucleated RBC % 0 PT INR APTT Specimen Type Sample Site pH Bicarbonate Actual POC Total CO2 Base Excess O2 Saturation O2 % ABG pCO2 ABG pO2 Danielito Test Respiration Rate O2 Delivery Device Liter Flow EPAP IPAP Blood Gas Notified Whom Blood Gas Notified Time Sodium Potassium Chloride Carbon Dioxide Anion Gap BUN Creatinine Estim Creat Clear Calc Est GFR (MDRD) Af Amer Est GFR (MDRD) Non-Af BUN/Creatinine Ratio Glucose Lactic Acid Calcium Lactate Dehydrogenase Troponin I B-Natriuretic Peptide Total Protein Globulin Albumin/Globulin Ratio Fluid Source THORACENTESIS Fluid Color COLORLESS Fluid Appearance CLEAR Fluid WBC 0.029 Fluid RBC 3 Fluid Tot Cell Count 0.040 Fld Polynuclear WBCs # 0.001 Fld Polynuclear WBCs % 3.5 Fluid Mononuclear WBCs 0.028 Fld Mononuclear WBCs % 96.5 Fluid Neutrophils 8 Fluid Lymphocytes 48 Fluid Monocytes 20 Fld Mesothelial Cells 8 Fluid Other Cells 16 Fl Pathologist Comment May follow Fluid Glucose Fluid Total Protein Fluid LDH Fluid Comment 2 SEE COMMENT Miscellaneous Cytology Pending 05/16/19 05:10 WBC RBC Hgb Hct MCV MCH MCHC RDW Std Deviation RDW Coeff of Babita Plt Count MPV Immature Gran % (Auto) Neut % (Auto) Lymph % (Auto) [place] % (Auto) Eos % (Auto) Baso % (Auto) Absolute Neuts (auto) Absolute Lymphs (auto) Nucleated RBC % PT INR APTT Specimen Type Sample Site pH Bicarbonate Actual POC Total CO2 Base Excess O2 Saturation O2 % ABG pCO2 ABG pO2 Danielito Test Respiration Rate O2 Delivery Device Liter Flow EPAP IPAP Blood Gas Notified Whom Blood Gas Notified Time Sodium 145 Potassium 3.6 Chloride 101 Carbon Dioxide 42.0 H Anion Gap 2 L BUN 34 H Creatinine 1.02 Estim Creat Clear Calc 69.31 Est GFR (MDRD) Af Amer 93 Est GFR (MDRD) Non-Af 77 BUN/Creatinine Ratio 33.3 H Glucose 92 Lactic Acid Calcium 8.5 Lactate Dehydrogenase Troponin I B-Natriuretic Peptide Total Protein Globulin Albumin/Globulin Ratio Fluid Source Fluid Color Fluid Appearance Fluid WBC Fluid RBC Fluid Tot Cell Count Fld Polynuclear WBCs # Fld Polynuclear WBCs % Fluid Mononuclear WBCs Fld Mononuclear WBCs % Fluid Neutrophils Fluid Lymphocytes Fluid Monocytes Fld Mesothelial Cells Fluid Other Cells Fl Pathologist Comment Fluid Glucose Fluid Total Protein Fluid LDH Fluid Comment 2 Miscellaneous Cytology Microbiology 05/15/19 09:45 Fluid - Thoracentesis Fluid Gram Stain - Final 05/14/19 16:15 Mucosa - Nose Influenza Types A,B Direct FA ([facility]) - Final Clinical Impression(s) from Imaging Studies Brain CT 05/14/19 15:45 IMPRESSION: No acute intracranial or calvarial abnormality. There is no major interval change. Electronically Signed: Landry Newton DO at 17:16 EST Tel [phone], Service support , Chest X-Ray 05/14/19 15:45 IMPRESSION: Moderate to large right pleural effusion with volume loss and atelectasis as well as a small left pleural effusion with left basilar atelectasis. Electronically Signed: Rory Rosa, at 15:58 EST , Service support , Chest CT 05/14/19 16:04 IMPRESSION: 1. Larger bilateral pleural effusions with atelectasis. 2. Fracture of the lateral left third rib. 3. Small pericardial effusion. 4. Degenerative changes of the thoracic spine. 5. Irregularity of the left 10th rib thought to represent a remote fracture. Electronically Signed: Landry Newton DO at 17:22 EST Tel [phone], Service support , Thoracentesis Ultrasound 05/15/19 08:00 IMPRESSION: Ultrasound-guided right thoracentesis. Electronically Signed: Rory Rosa at 10:59 EST , Service support , Chest X-Ray 05/15/19 09:45 IMPRESSION: Status post right thoracentesis. There is no evidence of pneumothorax. Electronically Signed: Rory Rosa, at 12:31 EST , Service support , Current Medications Enoxaparin Sodium (Lovenox) 40 mg SC DAILY [facility] Last Admin: 05/15/19 09:55 Dose: Not Given Documented by: Furosemide (Lasix) 40 mg IV BIDLX [facility] Last Admin: 05/15/19 17:38 Dose: 40 mg Documented by: Glucagon () 1 mg IM .X1 PRN PRN Reason: Hypoglycemia Heparin Sodium (Beef Lung) () 50 units IV UD PRN PRN Reason: Port-a-Cath (VAD)Heparin Flush Sodium Chloride () 10 - 40 ml IV UD PRN PRN Reason: Port-a-Cath (VAD) Flush Last Admin: 05/16/19 05:19 Dose: 40 ml Documented by: Sodium Chloride (0.9% Nacl (Sterile) Posiflush) 10 - 40 ml IV UD PRN PRN Reason: Port access or dressing change Medical Necessity - Tobacco Use Smoking Status: Former smoker Tobacco Use: Cigarettes Assessment/Plan All Active Problems (Last Reviewed 04/27/19 @ 09:56 by Lavern Robles, [employer]IG[employer] ROLLER-C) Bilateral pleural effusion (Acute) Acute respiratory failure with hypoxia and hypercapnia (Acute) Pericardial effusion without cardiac tamponade (Acute) Closed head injury without loss of consciousness (Acute) Debility (Acute) Weakness of both legs (Acute) Falls (Acute) Acute and chronic respiratory failure with hypercapnia (Acute) Acute on chronic diastolic heart failure (Acute) Diastolic CHF, acute on chronic (Acute) RECOMMENDATIONS: 1. Continue Bumex drip. 2. Continue nocturnal Pap therapy. 3. Wean supplemental oxygen to maintain saturations at or above 90%. 4. The patient will likely require a repeat thoracentesis on Saturday, given the small amount of fluid that was aspirated yesterday. IMPRESSIONS: 1. Acute on chronic hypoxemic and hypercarbic respiratory failure Appears to be secondary to decompensated heart failure and subsequent pleural fluid accumulation. The patient does have a 2 L/min baseline supplemental oxygen requirement and also appears to be a chronic CO2 retainer. He does have radiographic evidence of significant bilateral pleural effusions, right greater than left. For now, the patient will be continued on diuretic therapy. Although the patient did undergo ultrasound-guided thoracentesis on May 15, only 60 mL's of fluid was aspirated, leaving the large right-sided pleural effusion grossly unchanged in appearance. The patient will likely require a repeat thoracentesis on Saturday. 2. 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 Renal function appears to be baseline. The patient has been followed by Dr. Whitley of cardiology on an outpatient basis. 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 3. Obstructive sleep apnea The patient has known obstructive sleep apnea and reports that he has been compliant with the use of nocturnal BiPAP therapy. During his last pulmonary office visit, he was ordered to undergo a re-titration study, which has yet to be completed. However, in the interim, the patient will remain on AVAPS while admitted to the hospital. This note was generated with [employer] dictation software. It may contain incorrect words, spelling, and punctuation that were not noted in checking the note before signing. Code Visit Inpatient E&M: 29975 [facility] L3
[2019-05-16] MEDS: Furosemide 40 MG/4 ML Vial IV (09:11)
[2019-05-16] MEDS: Enoxaparin 40 MG/0.4 ML Syringe SC (09:11)
--- NOTE | 2019-05-16 09:29 | PCM.PN.CARD ---
Subjectve: Patient seen and examined, and is feeling better over yesterday but still with conversational dyspnea. He underwent right-sided thoracentesis but only removed about 60 cc of fluid for reasons that are not explained in the note. Patient had initially decent diuresis, but then this has slowed down. No chest pain or anginal symptoms. Telemetry shows normal sinus rhythm/sinus tachycardia. Objective: Vital Signs Temp Pulse Resp BP Pulse Ox 98.1 F 104 H 18 120/86 H 97 05/16/19 09:07 05/16/19 09:07 05/16/19 09:07 05/16/19 09:07 05/16/19 09:07 Oxygen Flow Rate (L/min) [3] 4 Oxygen Flow Rate (L/min) [2] 4 Oxygen Flow Rate (L/min) [1 ( 5 Initial Baseline)] Oxygen Flow Rate (L/min) 4 Oxygen Delivery Method [3] Nasal Cannula Oxygen Delivery Method [2] Nasal Cannula Oxygen Delivery Method [1 ( Nasal Cannula Initial Baseline)] Oxygen Delivery Method Nasal Cannula Weight: 203 lb 11.314 oz Body Mass Index (BMI) 31.8 Intake and Output for Last 24 Hours 05/14/19 05/15/19 05/16/19 23:59 23:59 23:59 Intake Total 240 / 240 1000 / 1000 400 / 400 Output Total 700 / 700 3175 / 3175 Balance -460 / -460 -2175 / -2175 400 / 400 General: Awake, Alert, Oriented x 3 HEENT: PERRL, EOMI, Sclera Non Icteric Neck: Supple, Good ROM, No Lymph Node Enlargement Lungs: Diminished Right Base, Dullness to Percussion-Right Cardiovascular: Regular Rhythm, Normal S1, Normal S2, No Murmurs, No Rubs, No Gallops Vascular: No Carotid Bruits, Normal Femoral Pulses, Normal Radial Pulses, Normal Dorsalis Pedal Pulse, Normal Posterior Tibial Pulses Abdomen: Bowel Sounds Present, Soft, Non Tender, No HSM, No Organomegaly Extremities: No Cyanosis, No Clubbing, No edema Neurological: No Focal Motor or Sensory Deficit 05/16/19 05:10: WBC 4.2 L, RBC 2.76 L, Hgb 8.8 L, Hct 28.3 L, MCV 102.5 H, MCH 31.9, MCHC 31.1 L, Plt Count 91 L, MPV 12.1 H, Immature Gran % (Auto) 0.700, Neut % (Auto) 72.7 H, Lymph % (Auto) 18.4 L, [place] % (Auto) 7.7, Eos % (Auto) 0.0, Baso % (Auto) 0.5, Absolute Neuts (auto) 3.0, Nucleated RBC % 0 05/16/19 05:10: Sodium 145, Potassium 3.6, Chloride 101, Carbon Dioxide 42.0 H, Anion Gap 2 L, BUN 34 H, Creatinine 1.02, Est GFR (MDRD) Af Amer 93, Est GFR (MDRD) Non-Af 77, BUN/Creatinine Ratio 33.3 H, Glucose 92, Calcium 8.5 Rhythm: EKG: ECHO: Repeat echocardiogram showed an EF of 65%, trivial pericardial effusion without evidence of tamponade, abnormal global longitudinal strain. Unable to quantitate RVSP. Stress Test: Cardiac Cath: PCI: CT Surgery: Holter monitor: EPS: PPM: CXR: Chest CT Scan: Medical Necessity - Tobacco Use Smoking Status: Former smoker Tobacco Use: Cigarettes Assessment/Plan 1. Diastolic heart failure: The patient has evidence of amyloidosis seen on echocardiogram as well as confirm with renal biopsy. This is now the patient's second admission for congestive heart failure and right-sided pleural effusion the first of which was in April 2019 requiring right-sided thoracenteses. Since being diagnosed with amyloidosis Dr. Elam has applied chemotherapy which has improved his proteinuria a significant amount however he still has around 1 g of protein per day in his urine. Patient was initially placed on BiPAP therapy, but is now on O2 nasal cannula. He underwent right-sided thoracentesis yesterday but only removed about 60 cc for some reason. It appears that his pleural effusion is still most likely impacting on his pulmonary performance. Repeat echocardiogram showed trivial pericardial effusion normal LV function, unable to quantitate RVSP. There are some concerns about protein loss using a Pleur-evac for his second admission, so I believe it is reasonable to proceed with right-sided thoracentesis today to provide some relief and hopefully improve his heart rate. At this point I would recommend we attempt fluid removal vis-?-vis a Bumex drip. If this is unsuccessful he may require repeat thoracentesis of the right side at the very least on Saturday. Would attempt to try and get at least 2 L negative fluid balance on a daily basis for the next few days. Given the patient's amyloid in his kidneys he may have difficulty achieving diuretic threshold with traditional Lasix therapy. Patient may require consultation with Dr. Avendano for possible pleurodesis. In addition would recommend implementing beta-ivelisse therapy to slow his heart down to provide longer diastolic filling times. Now that his thoracentesis is been completed, would start with Lopressor 25 mg p.o. twice daily. In addition we need to ensure that the patient does not have a ischemic component to his diastolic dysfunction, and apparently he has not had a stress test as of this time. Once he has had his right-sided thoracentesis would recommend either a dobutamine echocardiogram, or a Lexiscan/MPI to evaluate for possible sources of ischemia. If his stress test is abnormal, he may require diagnostic coronary angiogram. After speaking with Dr. Serrano and Dr. Elam, I believe it is reasonable to hold off on pleural vacs at this time as this may contribute to additional protein wasting. Patient has had a positive response to chemotherapy with respect to his amyloidosis, and may require additional chemotherapy per Dr. Elam. 2. Thank you very much for the opportunity to participate in the cardiac care of your patient. Code Visit Inpatient E&M: 37095 Subs Hosp L2
[2019-05-16] MEDS: Metoprolol Tartrate 25 MG Tablet PO ×2 (10:24→20:56)
[2019-05-16] MEDS: Bumetanide 25 MG in CONTAINER,EMPTY 1 BAG CONT INF (10:25)
--- NOTE | 2019-05-16 12:09 | PN_ITS ---
Patient Problems: Active and Suspected Problems (Last Reviewed 04/27/19 @ 09:56 by Lavern Robles NP-C) Bilateral pleural effusion (Acute) Acute respiratory failure with hypoxia and hypercapnia (Acute) Pericardial effusion without cardiac tamponade (Acute) Closed head injury without loss of consciousness (Acute) Subjective: Patient seen and examined. He was comfortably sitting up in his chair and had no complaints. He was on 4 L of oxygen which is his baseline. He denies any chest pain or palpitations, dizziness, nausea vomiting or diarrhea. He had thoracentesis done yesterday and. Radiology documentation, only 60 cc was removed. Per discussion with pulmonology, follow-up chest x-rays look the same so it is doubtful that more fluid was removed from patient's pleural space. Vitals/I&O's: Vital Signs Temp Pulse Resp BP Pulse Ox 98.1 F 101 H 18 120/86 H 97 05/16/19 09:07 05/16/19 10:24 05/16/19 09:07 05/16/19 09:07 05/16/19 09:07 Oxygen Flow Rate (L/min) [3] 4 Oxygen Flow Rate (L/min) [2] 4 Oxygen Flow Rate (L/min) [1 ( 5 Initial Baseline)] Oxygen Flow Rate (L/min) 4 Oxygen Delivery Method [3] Nasal Cannula Oxygen Delivery Method [2] Nasal Cannula Oxygen Delivery Method [1 ( Nasal Cannula Initial Baseline)] Oxygen Delivery Method Nasal Cannula Weight: 203 lb 11.314 oz Body Mass Index (BMI) 31.8 Intake and Output for Last 24 Hours 05/14/19 05/15/19 05/16/19 23:59 23:59 23:59 Intake Total 240 / 240 1000 / 1000 400 / 400 Output Total 700 / 700 3175 / 3175 Balance -460 / -460 -2175 / -2175 400 / 400 General: Alert, Cooperative, No apparent distress, HEENT: Atraumatic, PERRLA, EOMI, Normocephalic Oral: Dry Mucosa Neck: Supple, No JVD, Negative Carotid Bruits Lungs: minimal breath sounds bibasally, no wheezes or crackles. on 4L of oxygen by nasal canula Cardiovascular: Regular rate, Regular Rhythm, Normal S1, Normal S2, No murmurs Abdomen: Bowel Sounds Present, Soft, Non Tender, Non-Distended, No Hepato- splenomegaly Extremities: No clubbing, No cyanosis, Capillary Refill Less than 3 Seconds, - - bilateral LE 2+ pitting edema Skin: - - portacath in right side of chest Musculoskeletal: No Tenderness to Palpation of Joints or Extremities Lymphatic: No Cervical, Supraclavicular, or Inguinal Adenopathy Neurological: Cranial nerves II-XII grossly intact, Neuro grossly intact, Motor Exam 5/5 strength throughout Psych/Mental Status: normal affect Microbiology Past 72 Hours 05/15/19 09:45 Fluid - Thoracentesis Fluid Gram Stain - Final 05/15/19 09:45 Fluid - Thoracentesis Fluid Body Fluid Culture - Preliminary No growth-Final to follow 05/14/19 16:15 Mucosa - Nose Influenza Types A,B Direct FA (PATO) - Final Laboratory Results 05/15/19 09:45: Fluid Source THORACENTESIS, Fluid Color COLORLESS, Fluid Appearance CLEAR, Fluid WBC 0.029, Fluid RBC 3, Fluid Tot Cell Count 0.040, Fld Polynuclear WBCs # 0.001, Fld Polynuclear WBCs % 3.5, Fluid Mononuclear WBCs 0.028, Fld Mononuclear WBCs % 96.5, Fluid Neutrophils 8, Fluid Lymphocytes 48, Fluid Monocytes 20, Fld Mesothelial Cells 8, Fluid Other Cells 16, Fl Pathologist Comment May follow, Fluid Comment 2 SEE COMMENT 05/16/19 05:10: WBC 4.2 L, RBC 2.76 L, Hgb 8.8 L, Hct 28.3 L, MCV 102.5 H, MCH 31.9, MCHC 31.1 L, RDW Std Deviation 49.8 H, RDW Coeff of Babita 13.6, Plt Count 91 L, MPV 12.1 H, Immature Gran % (Auto) 0.700, Neut % (Auto) 72.7 H, Lymph % (Auto) 18.4 L, [place] % (Auto) 7.7, Eos % (Auto) 0.0, Baso % (Auto) 0.5, Absolute Neuts (auto) 3.0, Absolute Lymphs (auto) 0.77 L, Nucleated RBC % 0 05/16/19 05:10: Sodium 145, Potassium 3.6, Chloride 101, Carbon Dioxide 42.0 H, Anion Gap 2 L, BUN 34 H, Creatinine 1.02, Estim Creat Clear Calc 69.31, Est GFR (MDRD) Af Amer 93, Est GFR (MDRD) Non-Af 77, BUN/Creatinine Ratio 33.3 H, Glucose 92, Calcium 8.[address] 05/14/19 15:45 IMPRESSION: No acute intracranial or calvarial abnormality. There is no major interval change. Electronically Signed: Landry Newton, at 17:16 EST Tel [phone], Service support , Chest CT 05/14/19 16:04 IMPRESSION: 1. Larger bilateral pleural effusions with atelectasis. 2. Fracture of the lateral left third rib. 3. Small pericardial effusion. 4. Degenerative changes of the thoracic spine. 5. Irregularity of the left 10th rib thought to represent a remote fracture. Electronically Signed: Landry Newton, at 17:22 EST Tel [phone], Service support , Thoracentesis Ultrasound 05/15/19 08:00 IMPRESSION: Ultrasound-guided right thoracentesis. Electronically Signed: Rory Rosa, at 10:59 EST , Service support , Chest X-Ray 05/15/19 09:45 IMPRESSION: Status post right thoracentesis. There is no evidence of pneumothorax. Electronically Signed: Rory Rosa at 12:31 EST , Service support , Current Medications Enoxaparin Sodium (Lovenox) 40 mg SC DAILY [facility] Last Admin: 05/16/19 09:11 Dose: 40 mg Documented by: Glucagon () 1 mg IM .X1 PRN PRN Reason: Hypoglycemia Heparin Sodium (Beef Lung) () 50 units IV UD PRN PRN Reason: Port-a-Cath (VAD)Heparin Flush Bumetanide 25 mg/ (Miscellaneous Information) 100 mls @ 2 mls/hr CONT INF .Q50H [facility] Last Admin: 05/16/19 10:25 Dose: 0.5 mg/hr, 2 mls/hr Documented by: Metoprolol Tartrate (Lopressor (Beta Zak)) 25 mg PO BID [facility] Last Admin: 05/16/19 10:24 Dose: 25 mg Documented by: Sodium Chloride () 10 - 40 ml IV UD PRN PRN Reason: Port-a-Cath (VAD) Flush Last Admin: 05/16/19 10:26 Dose: 10 ml Documented by: Sodium Chloride (0.9% Nacl (Sterile) Posiflush) 10 - 40 ml IV UD PRN PRN Reason: Port access or dressing change STROKE Vital Signs/Narrative: Vital Signs Temp Pulse Resp BP Pulse Ox 05/16/19 10:24 101 H 05/16/19 09:07 98.1 F 104 H 18 120/86 H 97 Medical Necessity - Tobacco Use Smoking Status: Former smoker Tobacco Use: Cigarettes Assessment/Plan All Active Problems (Last Reviewed 04/27/19 @ 09:56 by Lavern Robles, [place]-C) Bilateral pleural effusion (Acute) Acute respiratory failure with hypoxia and hypercapnia (Acute) Pericardial effusion without cardiac tamponade (Acute) Closed head injury without loss of consciousness (Acute) Debility (Acute) Weakness of both legs (Acute) Falls (Acute) Acute and chronic respiratory failure with hypercapnia (Acute) Acute on chronic diastolic heart failure (Acute) Diastolic CHF, acute on chronic (Acute) 68 y/o admitted with a complaint of shortness of breath 1. Acute on chronic hypoxic and hypercapnic respiratory failure due to bilateral pleural effusions * Chest CT showed bilateral large pleural effusions * now on 4L of oygen, which is his baseline * breathing treatments prn with duonebs * had right sided thoracentesis on 05/15/2019, with removal of 60cc of fluid, per radiology documentation. It is not clear why only 60cc was removed * cardiology on board; advocate starting bumex drip to help diurese pateint and help with fluid removal * pulmonology on board: Advocated holding off on placement of pleural catheter now as this may contribute to additional protein wasting. * * 2. Bilateral recurrent pleural effusion, likely due to acute on chronic heart failure * CT showed large bilateral pleural effusion with atelectasis. * as under 1. * lasix stopped, now on bumex drip * restrict fluid to 1500cc daily. Intake and output chart * heart failure likely due to amyloidosis * 3. Respiratory acidosis due to acute on chronic hypercapnic and hypoxic respiratory failure * as under 1 * 4. acute on chronic HFpEF * BNP was ~ 555, which is actually the lowest it has been * 2D echo(04/08/2019):stage 1 diastolic dysfunction, with evidence of amyloidosis. * now on bumex drip. Per cardiology, he may require repeat thoracentesis of the right side on Saturday if diuresis with Bumex drip does not work. He may have difficulty achieving diuretic threshold because of his amyloidosis. * Cardiology recommending stress test after he has had right-sided thoracentesis again on Saturday. * monitor intake output chart; fluid restriction to 1500cc daily * for thoracentesis today for pleural effusion * 5. hyperkalemia: Potassium down to 3.6 6. History of plasma cell dyscrasia: follow up with oncology DVT prophylaxis: lovenox Code status: full code. Code Visit Inpatient E&M: 01316 Subs Hosp L2
--- NOTE | 2019-05-16 23:11 | NURSING ---
PATIENT WORE BIPAP FOR THREE HOURS, REFUSING TO WEAR AT THIS TIME SO PLACED ON 1.5LNC 02 97%.
[2019-05-17] VITALS (17 sets, daily range): BP systolic 104–125; BP diastolic 68–78; PULSE 80–122; RESP 18–40; TEMP 36.8–37.1; O2SAT 93–97
--- NOTE | 2019-05-17 01:36 | NURSING ---
Report received from Carole Mello RN. This RN resuming care of patient at this time.
--- NOTE | 2019-05-17 07:43 | PCM.PN.PUL ---
Patient Problems: Active and Suspected Problems (Last Reviewed 04/27/19 @ 09:56 by HOLLY Kay) Bilateral pleural effusion (Acute) Acute respiratory failure with hypoxia and hypercapnia (Acute) Pericardial effusion without cardiac tamponade (Acute) Closed head injury without loss of consciousness (Acute) Subjective: The patient was seen and examined at the bedside this morning. Events from the last 24 hours have been reviewed. The patient is currently afebrile, hemodynamically stable and maintaining appropriate oxygen saturations on 2 L/min via nasal cannula. The patient has only been tolerant of nocturnal BiPAP therapy in 1 to 2-hour increments. The patient remains on a Bumex drip. Shortness of breath has improved. Objective: The patient's most recent lab work, culture data and imaging studies have all been personally reviewed. Repeat surface echocardiogram revealed mild concentric LVH with an ejection fraction of 65%. Pleural fluid Gram stain showed no organisms. Pleural fluid cultures have shown no growth to date. - Physical Exam Vitals/I&O's: Vital Signs Temp Pulse Resp BP Pulse Ox 98.2 F 107 H 20 H 117/70 96 05/17/19 07:20 05/17/19 07:20 05/17/19 07:20 05/17/19 07:20 05/17/19 07:20 Oxygen Flow Rate (L/min) [3] 4 Oxygen Flow Rate (L/min) [2] 4 Oxygen Flow Rate (L/min) [1 ( 5 Initial Baseline)] Oxygen Flow Rate (L/min) 2 Oxygen Delivery Method [3] Nasal Cannula Oxygen Delivery Method [2] Nasal Cannula Oxygen Delivery Method [1 ( Nasal Cannula Initial Baseline)] Oxygen Delivery Method Nasal Cannula Weight: 201 lb 4.513 oz Body Mass Index (BMI) 31.8 Intake and Output for Last 24 Hours 05/15/19 05/16/19 05/17/19 23:59 23:59 23:59 Intake Total 1000 / 1000 1740 / 1740 185 / 185 Output Total 3175 / 3175 2150 / 2150 950 / 950 Balance -2175 / -2175 -410 / -410 -765 / -765 General: Alert, Oriented x3, Cooperative, No apparent distress HEENT: Atraumatic, PERRLA, Normocephalic Oral: Moist Mucosa, No Gingival or Mucosal Lesions/ Ulcerations Neck: Supple, No Nodes, Trachea Midline Lungs: No rhonchi, No wheeze, No rales, Diminished Cardiovascular: Regular rate, Regular Rhythm, Normal S1, Normal S2, No murmurs Abdomen: Bowel Sounds Present, Soft, Non Tender Extremities: No clubbing, No cyanosis Skin: No breakdown Musculoskeletal: No Tenderness to Palpation of Joints or Extremities, No Muscle Wasting Lymphatic: No Cervical, Supraclavicular, or Inguinal Adenopathy Neurological: Cranial nerves II-XII grossly intact, Neuro grossly intact Psych/Mental Status: Normal Affect, Appropriate Labs (Last 48 Hours) 05/15/19 05/15/19 05/15/19 04:15 09:45 09:45 WBC RBC Hgb Hct MCV MCH MCHC RDW Std Deviation RDW Coeff of Babita Plt Count MPV Immature Gran % (Auto) Neut % (Auto) Lymph % (Auto) [place] % (Auto) Eos % (Auto) Baso % (Auto) Absolute Neuts (auto) Absolute Lymphs (auto) Nucleated RBC % Sodium Potassium Chloride Carbon Dioxide Anion Gap BUN Creatinine Estim Creat Clear Calc Est GFR (MDRD) Af Amer Est GFR (MDRD) Non-Af BUN/Creatinine Ratio Glucose Calcium Lactate Dehydrogenase 168 Total Protein 4.4 L Globulin 2.5 Albumin/Globulin Ratio 0.8 L Fluid Source THORACENTESIS Fluid Color COLORLESS Fluid Appearance CLEAR Fluid WBC 0.029 Fluid RBC 3 Fluid Tot Cell Count 0.040 Fld Polynuclear WBCs # 0.001 Fld Polynuclear WBCs % 3.5 Fluid Mononuclear WBCs 0.028 Fld Mononuclear WBCs % 96.5 Fluid Neutrophils 8 Fluid Lymphocytes 48 Fluid Monocytes 20 Fld Mesothelial Cells 8 Fluid Other Cells 16 Fl Pathologist Comment May follow Fluid Glucose 105 H Fluid Total Protein 1.2 Fluid LDH 60 Fluid Comment 2 SEE COMMENT Miscellaneous Cytology 05/15/19 05/16/19 05/16/19 09:45 05:10 05:10 WBC 4.2 L RBC 2.76 L Hgb 8.8 L Hct 28.3 L MCV 102.5 H MCH 31.9 MCHC 31.1 L RDW Std Deviation 49.8 H RDW Coeff of Babita 13.6 Plt Count 91 L MPV 12.1 H Immature Gran % (Auto) 0.700 Neut % (Auto) 72.7 H Lymph % (Auto) 18.4 L [place] % (Auto) 7.7 Eos % (Auto) 0.0 Baso % (Auto) 0.5 Absolute Neuts (auto) 3.0 Absolute Lymphs (auto) 0.77 L Nucleated RBC % 0 Sodium 145 Potassium 3.6 Chloride 101 Carbon Dioxide 42.0 H Anion Gap 2 L BUN 34 H Creatinine 1.02 Estim Creat Clear Calc 69.31 Est GFR (MDRD) Af Amer 93 Est GFR (MDRD) Non-Af 77 BUN/Creatinine Ratio 33.3 H Glucose 92 Calcium 8.5 Lactate Dehydrogenase Total Protein Globulin Albumin/Globulin Ratio Fluid Source Fluid Color Fluid Appearance Fluid WBC Fluid RBC Fluid Tot Cell Count Fld Polynuclear WBCs # Fld Polynuclear WBCs % Fluid Mononuclear WBCs Fld Mononuclear WBCs % Fluid Neutrophils Fluid Lymphocytes Fluid Monocytes Fld Mesothelial Cells Fluid Other Cells Fl Pathologist Comment Fluid Glucose Fluid Total Protein Fluid LDH Fluid Comment 2 Miscellaneous Cytology Pending Microbiology 05/15/19 09:45 Fluid - Thoracentesis Fluid Gram Stain - Final 05/15/19 09:45 Fluid - Thoracentesis Fluid Body Fluid Culture - Preliminary No growth-Final to follow Clinical Impression(s) from Imaging Studies Brain CT 05/14/19 15:45 IMPRESSION: No acute intracranial or calvarial abnormality. There is no major interval change. Electronically Signed: Landry Newton DO at 17:16 EST Tel [phone], Service support , Chest X-Ray 05/14/19 15:45 IMPRESSION: Moderate to large right pleural effusion with volume loss and atelectasis as well as a small left pleural effusion with left basilar atelectasis. Electronically Signed: Rory Rosa, at 15:58 EST , Service support , Chest CT 05/14/19 16:04 IMPRESSION: 1. Larger bilateral pleural effusions with atelectasis. 2. Fracture of the lateral left third rib. 3. Small pericardial effusion. 4. Degenerative changes of the thoracic spine. 5. Irregularity of the left 10th rib thought to represent a remote fracture. Electronically Signed: Landry Newton DO at 17:22 EST Tel [phone], Service support , Thoracentesis Ultrasound 05/15/19 08:00 IMPRESSION: Ultrasound-guided right thoracentesis. Electronically Signed: Rory Rosa, at 10:59 EST , Service support , Chest X-Ray 05/15/19 09:45 IMPRESSION: Status post right thoracentesis. There is no evidence of pneumothorax. Electronically Signed: Rory Rosa, at 12:31 EST , Service support , Current Medications Enoxaparin Sodium (Lovenox) 40 mg SC DAILY [facility] Last Admin: 05/16/19 09:11 Dose: 40 mg Documented by: Glucagon () 1 mg IM .X1 PRN PRN Reason: Hypoglycemia Heparin Sodium (Beef Lung) () 50 units IV UD PRN PRN Reason: Port-a-Cath (VAD)Heparin Flush Bumetanide 25 mg/ (Miscellaneous Information) 100 mls @ 2 mls/hr CONT INF .Q50H [facility] Last Admin: 05/16/19 10:25 Dose: 0.5 mg/hr, 2 mls/hr Documented by: Metoprolol Tartrate (Lopressor (Beta Zak)) 25 mg PO BID [facility] Last Admin: 05/16/19 20:56 Dose: 25 mg Documented by: Sodium Chloride () 10 - 40 ml IV UD PRN PRN Reason: Port-a-Cath (VAD) Flush Last Admin: 05/16/19 10:26 Dose: 10 ml Documented by: Sodium Chloride (0.9% Nacl (Sterile) Posiflush) 10 - 40 ml IV UD PRN PRN Reason: Port access or dressing change Medical Necessity - Tobacco Use Smoking Status: Former smoker Tobacco Use: Cigarettes Assessment/Plan All Active Problems (Last Reviewed 04/27/19 @ 09:56 by Lavern Robles NP-C) Bilateral pleural effusion (Acute) Acute respiratory failure with hypoxia and hypercapnia (Acute) Pericardial effusion without cardiac tamponade (Acute) Closed head injury without loss of consciousness (Acute) Debility (Acute) Weakness of both legs (Acute) Falls (Acute) Acute and chronic respiratory failure with hypercapnia (Acute) Acute on chronic diastolic heart failure (Acute) Diastolic CHF, acute on chronic (Acute) RECOMMENDATIONS: 1. Continue Bumex drip. 2. Continue nocturnal Pap therapy. 3. Wean supplemental oxygen to maintain saturations at or above 90%. 4. Encourage incentive spirometer use and mobilize patient as tolerated. 5. The patient will likely require a repeat thoracentesis on Saturday, given the small amount of fluid that was aspirated on 05/15. IMPRESSIONS: 1. Acute on chronic hypoxemic and hypercarbic respiratory failure Appears to be secondary to decompensated heart failure and subsequent pleural fluid accumulation. The patient does have a 2 L/min baseline supplemental oxygen requirement and also appears to be a chronic CO2 retainer. He does have radiographic evidence of significant bilateral pleural effusions, right greater than left. For now, the patient will be continued on diuretic therapy. Although the patient did undergo ultrasound-guided thoracentesis on May 15, only 60 mL's of fluid was aspirated, leaving the large right-sided pleural effusion grossly unchanged in appearance. The patient will likely require a repeat thoracentesis on Saturday. 2. 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 Renal function appears to be baseline. The patient has been followed by Dr. Whitley of cardiology on an outpatient basis. 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 3. Obstructive sleep apnea The patient has known obstructive sleep apnea and reports that he has been compliant with the use of nocturnal BiPAP therapy. During his last pulmonary office visit, he was ordered to undergo a re-titration study, which has yet to be completed. However, in the interim, the patient will remain on AVAPS while admitted to the hospital. This note was generated with [employer] dictation software. It may contain incorrect words, spelling, and punctuation that were not noted in checking the note before signing. Code Visit Inpatient E&M: 80270 Subs Hosp L2
[2019-05-17] MEDS: Metoprolol Tartrate 25 MG Tablet PO ×2 (09:30→22:18)
[2019-05-17] MEDS: Enoxaparin 40 MG/0.4 ML Syringe SC (09:30)
--- NOTE | 2019-05-17 11:05 | PCM.PN.CARD ---
Subjectve: Patient doing better than yesterday, continues to do well. Started on Bumex drip yesterday to assist with diuresis and is diuresed a total of 3.5 L since admission. Patient states that his breathing has improved but is still unable to lay down flat. Plan for repeat thoracentesis tomorrow per the patient. Telemetry is shown sinus tachycardia, no ventricular arrhythmias. Objective: Vital Signs Temp Pulse Resp BP Pulse Ox 98.2 F 105 H 20 H 110/70 94 05/17/19 09:28 05/17/19 09:30 05/17/19 09:28 05/17/19 09:30 05/17/19 09:50 Oxygen Flow Rate (L/min) [3] 4 Oxygen Flow Rate (L/min) [2] 4 Oxygen Flow Rate (L/min) [1 ( 5 Initial Baseline)] Oxygen Flow Rate (L/min) 2 Oxygen Delivery Method [3] Nasal Cannula Oxygen Delivery Method [2] Nasal Cannula Oxygen Delivery Method [1 ( Nasal Cannula Initial Baseline)] Oxygen Delivery Method Nasal Cannula Weight: 201 lb 4.513 oz Body Mass Index (BMI) 31.8 Intake and Output for Last 24 Hours 05/15/19 05/16/19 05/17/19 23:59 23:59 23:59 Intake Total 1000 / 1000 1740 / 1740 185 / 185 Output Total 3175 / 3175 2150 / 2150 950 / 950 Balance -2175 / -2175 -410 / -410 -765 / -765 General: Awake, Alert, Oriented x 3 HEENT: PERRL, EOMI, Sclera Non Icteric Neck: Supple, Good ROM, No Lymph Node Enlargement Lungs: Rales - Right Base, Dullness to Percussion-Right Cardiovascular: Regular Rhythm, Normal S1, Normal S2, No Murmurs, No Rubs, No Gallops Vascular: No Carotid Bruits, Normal Femoral Pulses, Normal Radial Pulses, Normal Dorsalis Pedal Pulse, Normal Posterior Tibial Pulses Abdomen: Bowel Sounds Present, Soft, Non Tender, No HSM, No Organomegaly Extremities: No Cyanosis, No Clubbing, No edema Neurological: No Focal Motor or Sensory Deficit Rhythm: EKG: ECHO: Stress Test: Cardiac Cath: PCI: CT Surgery: Holter monitor: EPS: PPM: CXR: Chest CT Scan: Medical Necessity - Tobacco Use Smoking Status: Former smoker Tobacco Use: Cigarettes Assessment/Plan 1. Diastolic heart failure: The patient has evidence of amyloidosis seen on echocardiogram as well as confirm with renal biopsy. This is now the patient's second admission for congestive heart failure and right-sided pleural effusion the first of which was in April 2019 requiring right-sided thoracenteses. Since being diagnosed with amyloidosis Dr. Elam has applied chemotherapy which has improved his proteinuria a significant amount however he still has around 1 g of protein per day in his urine. Patient was initially placed on BiPAP therapy, but is now on O2 nasal cannula. He underwent right-sided thoracentesis on 05/14/2019 but only removed about 60 cc for some reason. It appears that his pleural effusion is still most likely impacting on his pulmonary performance. Repeat thoracentesis tentatively planned for tomorrow morning to assist with further pulmonary reexpansion. Repeat echocardiogram this admission showed trivial pericardial effusion normal LV function, unable to quantitate RVSP. There are some concerns about protein loss using a Pleur-evac for his second admission, so I believe it is reasonable to proceed with right-sided thoracentesis today to provide some relief and hopefully improve his heart rate. Patient has had significant improvement of his pulmonary function with IV Bumex drip. Would recommend continuing IV Bumex drip until his pulmonary status has been optimized. Would attempt to try and get at least 2 L negative fluid balance on a daily basis for the next few days. His bicarb remained stable at around 42, and his creatinine has not worsened. Given the patient's amyloid in his kidneys he may have difficulty achieving diuretic threshold with traditional Lasix therapy. Patient may require consultation with Dr. Avendano for possible pleurodesis. In addition would recommend implementing beta-ivelisse therapy to slow his heart down to provide longer diastolic filling times. Now that his thoracentesis is been completed, would start with Lopressor 25 mg p.o. twice daily. If the patient still remains tachycardic after extraction of his right lung fluid, we will increase his metoprolol to 50 mg p.o. twice daily. In addition we need to ensure that the patient does not have a ischemic component to his diastolic dysfunction, and apparently he has not had a stress test as of this time. Once he has had his right-sided thoracentesis would recommend either a dobutamine echocardiogram, or a Lexiscan/MPI to evaluate for possible sources of ischemia. If his stress test is abnormal, he may require diagnostic coronary angiogram. Would recommend keeping the patient's hemoglobin above 8.0. There has been some downward trend in his hemoglobin, and he may have concomitant bleeding from some unknown location. After speaking with Dr. Serrano and Dr. Elam, I believe it is reasonable to hold off on pleural vacs at this time as this may contribute to additional protein wasting. Patient has had a positive response to chemotherapy with respect to his amyloidosis, and may require additional chemotherapy per Dr. Elam. 2. Thank you very much for the opportunity to participate in the cardiac care of your patient. Code Visit Inpatient E&M: 80565 Subs Hosp L2
--- NOTE | 2019-05-17 12:17 | PN_ITS ---
Patient Problems: Active and Suspected Problems (Last Reviewed 04/27/19 @ 09:56 by Lavern Robles NP-C) Bilateral pleural effusion (Acute) Acute respiratory failure with hypoxia and hypercapnia (Acute) Pericardial effusion without cardiac tamponade (Acute) Closed head injury without loss of consciousness (Acute) Subjective: Patient seen and examined. He has no complaints this morning. Shortness of breath has resolved. He is on 2L of oxygen. He has mild tachypnea and tachycardia today, with HR of 105 and RR of 20. He is in negative balance by 3.8L since admission. he has put out 5.475L of urine since admission. Vitals/I&O's: Vital Signs Temp Pulse Resp BP Pulse Ox 98.2 F 105 H 20 H 110/70 94 05/17/19 09:28 05/17/19 09:30 05/17/19 09:28 05/17/19 09:30 05/17/19 09:50 Oxygen Flow Rate (L/min) [3] 4 Oxygen Flow Rate (L/min) [2] 4 Oxygen Flow Rate (L/min) [1 ( 5 Initial Baseline)] Oxygen Flow Rate (L/min) 2 Oxygen Delivery Method [3] Nasal Cannula Oxygen Delivery Method [2] Nasal Cannula Oxygen Delivery Method [1 ( Nasal Cannula Initial Baseline)] Oxygen Delivery Method Nasal Cannula Weight: 201 lb 4.513 oz Body Mass Index (BMI) 31.8 Intake and Output for Last 24 Hours 05/15/19 05/16/19 05/17/19 23:59 23:59 23:59 Intake Total 1000 / 1000 1740 / 1740 185 / 185 Output Total 3175 / 3175 2150 / 2150 950 / 950 Balance -2175 / -2175 -410 / -410 -765 / -765 General: Alert, Cooperative, No apparent distress, HEENT: Atraumatic, PERRLA, EOMI, Normocephalic Oral: Dry Mucosa Neck: Supple, No JVD, Negative Carotid Bruits Lungs: minimal breath sounds bibasally, no wheezes or crackles. on 2L of oxygen by nasal canula Cardiovascular: Regular rate, Regular Rhythm, Normal S1, Normal S2, No murmurs Abdomen: Bowel Sounds Present, Soft, Non Tender, Non-Distended, No Hepato- splenomegaly Extremities: No clubbing, No cyanosis, Capillary Refill Less than 3 Seconds, - - bilateral LE 2+ pitting edema Skin: - - portacath in right side of chest Musculoskeletal: No Tenderness to Palpation of Joints or Extremities Lymphatic: No Cervical, Supraclavicular, or Inguinal Adenopathy Neurological: Cranial nerves II-XII grossly intact, Neuro grossly intact, Motor Exam 5/5 strength throughout Psych/Mental Status: normal affect Microbiology Past 72 Hours 05/15/19 09:45 Fluid - Thoracentesis Fluid Gram Stain - Final 05/15/19 09:45 Fluid - Thoracentesis Fluid Body Fluid Culture - Preliminary No growth-Final to follow 05/14/19 16:15 Mucosa - Nose Influenza Types A,B Direct FA (PATO) - Final Current Medications Enoxaparin Sodium (Lovenox) 40 mg SC DAILY [facility] Last Admin: 05/17/19 09:30 Dose: 40 mg Documented by: Glucagon () 1 mg IM .X1 PRN PRN Reason: Hypoglycemia Heparin Sodium (Beef Lung) () 50 units IV UD PRN PRN Reason: Port-a-Cath (VAD)Heparin Flush Bumetanide 25 mg/ (Miscellaneous Information) 100 mls @ 2 mls/hr CONT INF .Q50H [facility] Last Admin: 05/16/19 10:25 Dose: 0.5 mg/hr, 2 mls/hr Documented by: Metoprolol Tartrate (Lopressor (Beta Zak)) 25 mg PO BID [facility] Last Admin: 05/17/19 09:30 Dose: 25 mg Documented by: Sodium Chloride () 10 - 40 ml IV UD PRN PRN Reason: Port-a-Cath (VAD) Flush Last Admin: 05/16/19 10:26 Dose: 10 ml Documented by: Sodium Chloride (0.9% Nacl (Sterile) Posiflush) 10 - 40 ml IV UD PRN PRN Reason: Port access or dressing change STROKE Vital Signs/Narrative: Vital Signs Temp Pulse Resp BP Pulse Ox 05/17/19 09:50 94 05/17/19 09:30 105 H 110/70 05/17/19 09:28 98.2 F 105 H 20 H 110/70 96 Medical Necessity - Tobacco Use Smoking Status: Former smoker Tobacco Use: Cigarettes Assessment/Plan All Active Problems (Last Reviewed 04/27/19 @ 09:56 by Lavern Robles, PRESIDENT AND CHIEF EXECUTIVE OFFICER-C) Bilateral pleural effusion (Acute) Acute respiratory failure with hypoxia and hypercapnia (Acute) Pericardial effusion without cardiac tamponade (Acute) Closed head injury without loss of consciousness (Acute) Debility (Acute) Weakness of both legs (Acute) Falls (Acute) Acute and chronic respiratory failure with hypercapnia (Acute) Acute on chronic diastolic heart failure (Acute) Diastolic CHF, acute on chronic (Acute) 1. Acute on chronic hypoxic and hypercapnic respiratory failure due to bilateral pleural effusions * now on 2L of oxygen * breathing treatments prn with duonebs * on IV bumetanide drip; in negative balance by 3.8L * had right sided thoracentesis on 05/15/2019, with removal of 60cc of fluid, per radiology documentation. It is not clear why only 60cc was removed * pulmonology on board: Advocated holding off on placement of pleural catheter now as this may contribute to additional protein wasting. * for cardiac cath tomorrow * 2. Bilateral recurrent pleural effusion, likely due to acute on chronic heart failure * CT showed large bilateral pleural effusion with atelectasis. * as under 1. * on bumex drip; negative balance as under 1. * restrict fluid to 1500cc daily. Intake and output chart * heart failure likely due to amyloidosis * 3. Respiratory acidosis due to acute on chronic hypercapnic and hypoxic respiratory failure * as under 1 * 4. acute on chronic HFpEF * BNP was ~ 555, * 2D echo(04/08/2019):stage 1 diastolic dysfunction, with evidence of amyloidosis. * now on bumex drip. Per cardiology, he may require repeat thoracentesis of the right side on Saturday if diuresis with Bumex drip does not work. He may have difficulty achieving diuretic threshold because of his amyloidosis. 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 Code Visit Inpatient E&M: 74482 Subs Hosp L3
[2019-05-17] MEDS: Acetaminophen 325 MG Tablet 650 MG PO (22:19)
[2019-05-18] VITALS (15 sets, daily range): BP systolic 98–138; BP diastolic 58–80; PULSE 67–112; RESP 14–28; TEMP 36.6–37.2; O2SAT 94–97
--- NOTE | 2019-05-18 | FLU_PTH ---
PATIENT: SHELLEY DOAN LOC: [facility] U#:[id number] AGE/SX: 68/M ROOM: [facility] RE05/14/[address]: Dr. Jennifer Wolf MD : 1950 BED: 1 DIS: 05/20/2019 SPEC #: [id number] RECD: 05/18/19 13:14 STATUS: MARTHA REJavy #: [id number] PRETTY: 05/18/19 00:[address]: Jennifer Wolf DEPT: CYTOLOGY RECD BY: Vitaly Jenkins ENTERED: 05/19/19 11:04 SP TYPE: Fluid OTHR DR: DO Dr. Orlando Randle MD Dr. Jordan Garrison, DO Dr. Sheri Berg MD Tissues: THORACIC FLUID Procedures: Special Stain Group II Surgery Specimen Level IV Cytospin Fluid HEADER OPERATION: Ultrasound-guided right thoracentesis PRE-OP DIAGNOSIS: Pleural effusion TISSUE SUBMITTED: Thoracentesis fluid for cytology DIAGNOSIS CYTOLOGY Thoracentesis fluid for cytology (cytospin and cell block): Negative for malignant cells. BAILEE:obi 05/20/19 COMMENT Clinical correlation and appropriate follow up are necessary. Please make reference to previous specimens ([id number] and [id number]) thoracentesis fluid for cytology with diagnosis of negative for malignant cells. CYTOLOGY STUDY Slides are reviewed. CYTOLOGY GROSS Received is 70 ml of yellow cloudy fluid labeled with the patient's name and and designated per the requisition as thoracentesis. Submitted for cytology preparation including cell block. / obi 05/19/19 TC:5 CPT: 06751, 90513
[2019-05-18] MEDS: Bumetanide 25 MG in CONTAINER,EMPTY 1 BAG CONT INF (03:51)
[2019-05-18] MEDS: 0.9% Saline Lock 10 ML Syringe IV ×4 (05:11→06:26)
--- NOTE | 2019-05-18 06:11 | NURSING ---
Nursing unable to draw from power port this morning. Port deaccessed and reaccessed with 3/4 inch power port kit. Site is dry and intact with no redness or swelling. Good blood return with reaccess.
[2019-05-18 07:06] LABS: Absolute Lymphocyte Count 0.85 X10^3/uL (0.83-4.51); Absolute Neutrophil Count 2.8 X10^3/uL (2.0-7.7); Basophil# 0.02 X10^3/uL; Basophil% 0.5 % (0-1); Eosinophil# 0.03 X10^3/uL; Eosinophils% 0.8 % (0-5); Hematocrit 28.6 % (40-54); Hemoglobin 9.1 g/dL (13.0-16.5); Lymphocyte # 0.85 X10^3/ul (4.0); Lymphocyte % 21.3 % (19-41); Mean Corp Hgb Conc 31.8 g/dL (32-36); Mean Corpuscular Hgb 31.3 pg (27.0-32.0); Mean Corpuscular Volume 98.3 fL (80-94); Monocyte# 0.31 X10^3/uL; Monocyte% 7.8 % (0-10); NRBC Flagged by Analyzer 0 % (0-5); Neutrophil # 2.77 X10^3/uL (2.7-7.7); Neutrophil % 69.3 % (47-70); Platelet Count 111 K/mm3 (150-450); RBC Distribution Width CV 13.8 % (11.6-14.6); RBC Distribution Width SD 49.8 fl (35.1-43.9); Red Blood Count 2.91 M/mm3 (4.6-6.2)
[2019-05-18 07:15] LABS: BUN 25 mg/dL (7-18); BUN/Creat Ratio 25.4 RATIO (10-20); Calcium,Total 8.2 mg/dL (8.5-10.1); Chloride 94 mmol/L (98-107); Creatinine, Serum 0.99 mg/dL (0.70-1.30); EST Glomerular Filtration Rate 80 mL/min (>60); Est Glom Filt Rate - Afr Amer 97 mL/min (>60); Estimated Creatinine Clearance 71.41 ml/min; Glucose 94 mg/dL (74-106); Potassium 3.2 mmol/L (3.5-5.1); Sodium Level 142 mmol/L (136-145)
[2019-05-18 07:22] LABS: Carbon Dioxide > 45.0 mmol/L (21.0-32.0)
[2019-05-18 07:49] LABS: International Normalized Ratio 1.1; Partial Thromboplast Time 29.3 Seconds (24.1-36.2); Prothrombin Time (Protime)PT. 14.4 SECONDS (11.7-14.9)
[2019-05-18] MEDS: Metoprolol Tartrate 25 MG Tablet PO (09:28)
--- NOTE | 2019-05-18 10:58 | US_ITS ---
PROCEDURE: ULTRASOUND GUIDED THORACENTESIS. DATE: May 18, 2019. INDICATION: Male, 68 years old. Right pleural effusion. PHYSICIAN: Rory Rosa M.D. PROCEDURE: The risks, benefits, and alternatives to the procedure were explained to the patient. The specific risks of bleeding, infection, and pneumothorax requiring chest tube insertion were discussed and accepted. Written informed consent was obtained. Ultrasonographic evaluation of the right lower pleural space was carried out. An adequate pocket was identified. The patient was placed in the sitting, upright position. The overlying skin was prepped and draped in sterile fashion. 1% lidocaine was administered subcutaneously for local anesthesia. Under ultrasound guidance, a 5 Arabic thoracentesis needle/catheter system was advanced into the right posterior lower pleural fluid collection. Approximately 1500 mL of kai-colored fluid was drained. The catheter was removed, and a sterile dressing was applied. A specimen was collected and sent to the laboratory for analysis, as requested by the referring clinician. The patient tolerated the procedure well. A chest x-ray was ordered. US/Thoracentesis W US IMPRESSION: Ultrasound-guided right thoracentesis. Electronically Signed: Rory Rosa, at 13:31 EST , Service support ,
--- NOTE | 2019-05-18 12:07 | CASEMGMT ---
Addendum entered by Manuela Hendrickson 05/18/19 12:08: SW spoke with patient and let him know TCU should be able to take him. Manuela BURGER Original Note: CORY received a call from [facility] and they can take patient in TCU. CORY will check with Dr Crowder's office regarding what he is having done on . Manuela BURGER
--- NOTE | 2019-05-18 12:10 | PCM.PN.HOSP ---
Patient Problems: Active and Suspected Problems (Last Reviewed 04/27/19 @ 09:56 by Lavern Robles NP-C) Bilateral pleural effusion (Acute) Acute respiratory failure with hypoxia and hypercapnia (Acute) Pericardial effusion without cardiac tamponade (Acute) Closed head injury without loss of consciousness (Acute) Reason for Visit: Follow-up on respiratory failure/bilateral pleural effusions Subjective: Patient was seen and examined. He feels much improved. Had 1500 mils removed for thoracocentesis today. Off Bumex drip, on oral Bumex. Stress echo scheduled for tomorrow Objective: Physical exam: Vitals/I&O's: Vital Signs Temp Pulse Resp BP Pulse Ox 98.1 F 96 18 138/78 H 97 05/18/19 07:47 05/18/19 09:28 05/18/19 07:50 05/18/19 07:47 05/18/19 07:50 Oxygen Flow Rate (L/min) [3] 4 Oxygen Flow Rate (L/min) [2] 4 Oxygen Flow Rate (L/min) [1 ( 5 Initial Baseline)] Oxygen Flow Rate (L/min) 2 Oxygen Delivery Method [3] Nasal Cannula Oxygen Delivery Method [2] Nasal Cannula Oxygen Delivery Method [1 ( Nasal Cannula Initial Baseline)] Oxygen Delivery Method Nasal Cannula Weight: 89.6 kg Body Mass Index (BMI) 31.8 Intake and Output for Last 24 Hours 05/16/19 05/17/19 05/18/19 23:59 23:59 23:59 Intake Total 1740 / 1740 965 / 965 158.34 / 158.34 Output Total 2150 / 2150 2525 / 2525 100 / 100 Balance -410 / -410 -1560 / -1560 58.34 / 58.34 General: Alert, Oriented x3, Cooperative, No apparent distress, - - On 2 L of oxygen HEENT: Atraumatic, PERRLA, EOMI, Normocephalic Oral: Moist Mucosa Neck: Supple Lungs: Diminished - All of her lung yee Cardiovascular: Regular rate, Regular Rhythm, Normal S1, Normal S2, No murmurs Abdomen: Bowel Sounds Present, Soft, Non Tender, Non-Distended, No Hepato-splenomegaly Extremities: Edema - Bilateral +1 pedal edema Skin: No rashes Musculoskeletal: No Tenderness to Palpation of Joints or Extremities Lymphatic: No Cervical, Supraclavicular, or Inguinal Adenopathy Neurological: Cranial nerves II-XII grossly intact Psych/Mental Status: Normal Affect, Appropriate Microbiology Past 72 Hours 05/15/19 09:45 Fluid - Thoracentesis Fluid Gram Stain - Final 05/15/19 09:45 Fluid - Thoracentesis Fluid Body Fluid Culture - Final No growth aerobically. Laboratory Results 05/18/19 06:32: WBC 4.0 L, RBC 2.91 L, Hgb 9.1 L, Hct 28.6 L, MCV 98.3 H, MCH 31.3, MCHC 31.8 L, RDW Std Deviation 49.8 H, RDW Coeff of Babita 13.8, Plt Count 111 L, MPV 12.0, Immature Gran % (Auto) 0.300, Neut % (Auto) 69.3, Lymph % (Auto) 21.3, Webster % (Auto) 7.8, Eos % (Auto) 0.8, Baso % (Auto) 0.5, Absolute Neuts (auto) 2.8, Absolute Lymphs (auto) 0.85, Nucleated RBC % 0 05/18/19 06:32: Sodium 142, Potassium 3.2 L, Chloride 94 L, Carbon Dioxide > 45.0 H*, Anion Gap TNP, BUN 25 H, Creatinine 0.99, Estim Creat Clear Calc 71.41, Est GFR (MDRD) Af Amer 97, Est GFR (MDRD) Non-Af 80, BUN/Creatinine Ratio 25.4 H, Glucose 94, Calcium 8.2 L 05/18/19 06:32: PT 14.4, INR 1.1, APTT 29.3 Current Medications Acetaminophen (Tylenol) 650 mg PO Q4H PRN PRN PRN Reason: Pain Score 1-10/10 or Fever Last Admin: 05/17/19 22:19 Dose: 650 mg Documented by: Furosemide (Lasix) 80 mg PO BID@1000,1800 COLLEEN Glucagon () 1 mg IM .X1 PRN PRN Reason: Hypoglycemia Heparin Sodium (Beef Lung) () 50 units IV UD PRN PRN Reason: Port-a-Cath (VAD)Heparin Flush Metoprolol Succinate (Toprol Xl (Beta Zak)) 25 mg PO DAILY [facility]LE[facility] Sodium Chloride () 10 - 40 ml IV UD PRN PRN Reason: Port-a-Cath (VAD) Flush Last Admin: 05/18/19 06:26 Dose: 30 ml Documented by: Sodium Chloride (0.9% Nacl (Sterile) Posiflush) 10 - 40 ml IV UD PRN PRN Reason: Port access or dressing change STROKE Vital Signs/Narrative: Vital Signs Pulse 05/18/19 09:28 96 Medical Necessity - Tobacco Use Smoking Status: Former smoker Tobacco Use: Cigarettes Assessment/Plan All Active Problems (Last Reviewed 04/27/19 @ 09:56 by Lavern Robles, FLASH WELDING MACHINE OPERATOR-C) Bilateral pleural effusion (Acute) Acute respiratory failure with hypoxia and hypercapnia (Acute) Pericardial effusion without cardiac tamponade (Acute) Closed head injury without loss of consciousness (Acute) Debility (Acute) Weakness of both legs (Acute) Falls (Acute) Acute and chronic respiratory failure with hypercapnia (Acute) Acute on chronic diastolic heart failure (Acute) Diastolic CHF, acute on chronic (Acute) 1. Acute on chronic combined respiratory failure secondary to bilateral pleural effusion, improving Status post thoracocentesis, was on Bumex drip, Had repeat right thoracocentesis done today, 1 400 mils removed Continue on oral Lasix 2. 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 Acute contraction alkalosis, off Bumex, on Lasix Repeat blood work in a.m. 4. Amyloidosis, following with oncology 5. DVT PPx- Off Lovenox on account of thoracocentesis Code Visit Inpatient E&M: 32353 Subs Hosp L2
--- NOTE | 2019-05-18 12:45 | RAD_ITS ---
STUDY: X-RAY CHEST REASON FOR EXAM: Male, 68 years old. Post-thoracentesis. TECHNIQUE: AP inspiration and expiration views. COMPARISON: Comparison is made with prior examination dated May 15, 2019. FINDINGS: The patient is status post right thoracentesis. There is no evidence of pneumothorax. RAD/Chest Insp/Exp 2 View IMPRESSION: Status post right thoracentesis. There is no evidence of pneumothorax. Electronically Signed: Rory Rosa, at 15:34 EST , Service support ,
--- NOTE | 2019-05-18 13:27 | CASEMGMT ---
CORY spoke with Tamika at Dr Crowder's office. Patient has an appt 05-20 and possible chemo on 05-21. SW let her know he is probably going to [facility]. She spoke with Dr Crowder and he said that patient will need to resume treatment as soon as he is out of the shelter. CORY will talk with patient and make sure he knows he will not be able to get chemo while in TCU. Manuela LOCKETT MSW
[2019-05-18 14:32] LABS: Pathologist Comment/Body Fluid Reviewed
[2019-05-18] MEDS: Furosemide 80 MG Tablet PO (17:21)
[2019-05-19] VITALS (14 sets, daily range): BP systolic 102–134; BP diastolic 62–83; PULSE 63–107; RESP 12–22; TEMP 36.7–37.1; O2SAT 96–99
--- NOTE | 2019-05-19 08:22 | PN_ITS ---
Patient Problems: Active and Suspected Problems (Last Reviewed 04/27/19 @ 09:56 by Lavern Robles NP-C) Bilateral pleural effusion (Acute) Acute respiratory failure with hypoxia and hypercapnia (Acute) Pericardial effusion without cardiac tamponade (Acute) Closed head injury without loss of consciousness (Acute) Subjective: Patient did well overnight. Patient did have a thoracentesis yesterday with 1500 cc removed and reported a significant improvement subjectively. Patient refused BiPAP overnight stating I did not need it. Patient still remains on 2 L nasal cannula, but saturations are 99%. Patient is not reporting any cough. - Physical Exam Vitals/I&O's: Vital Signs Temp Pulse Resp BP Pulse Ox 36.7 C 95 17 134/83 H 99 05/19/19 05:54 05/19/19 06:59 05/19/19 05:54 05/19/19 05:54 05/19/19 05:54 Oxygen Flow Rate (L/min) [3] 2 Oxygen Flow Rate (L/min) [2] 2 Oxygen Flow Rate (L/min) [1 ( 2 Initial Baseline)] Oxygen Flow Rate (L/min) 2 Oxygen Delivery Method [3] Nasal Cannula Oxygen Delivery Method [2] Nasal Cannula Oxygen Delivery Method [1 ( Nasal Cannula Initial Baseline)] Oxygen Delivery Method Nasal Cannula Weight: 87.7 kg Body Mass Index (BMI) 31.8 Intake and Output for Last 24 Hours 05/17/19 05/18/19 05/19/19 23:59 23:59 23:59 Intake Total 965 / 965 908.34 / 908.34 Output Total 2525 / 2525 4150 / 4150 Balance -1560 / -1560 -3241.66 / -3241.66 General: Alert, Oriented x3, Cooperative, No apparent distress, Well developed, Well nourished, - - No conversational dyspnea. HEENT: Atraumatic, PERRLA, EOMI, Normocephalic, - - Scleral icterus or injection noted Oral: Moist Mucosa, No Gingival or Mucosal Lesions/ Ulcerations Neck: Supple, No JVD, No Nodes, Trachea Midline Lungs: No rhonchi, No wheeze, No rales, Diminished Cardiovascular: Regular rate, Regular Rhythm, Normal S1, Normal S2, No murmurs, No rub noted, No Gallop Abdomen: Bowel Sounds Present, Soft, Non Tender, Non-Distended Extremities: No clubbing, No cyanosis Skin: No breakdown Musculoskeletal: No Tenderness to Palpation of Joints or Extremities Lymphatic: No Cervical, Supraclavicular, or Inguinal Adenopathy Neurological: Cranial nerves II-XII grossly intact, Neuro grossly intact, Motor Exam 5/5 strength throughout Psych/Mental Status: Alert and oriented to time, place, person, mood and affect Microbiology Past 72 Hours 05/15/19 09:45 Fluid - Thoracentesis Fluid Gram Stain - Final 05/15/19 09:45 Fluid - Thoracentesis Fluid Body Fluid Culture - Final No growth aerobically. 05/15/19 09:45 Fluid - Thoracentesis Fluid Anaerobic Culture - Preliminary No growth in 48 hours. Laboratory Results 05/15/19 09:45: Fl Pathologist Comment Reviewed Current Medications Acetaminophen (Tylenol) 650 mg PO Q4H PRN PRN PRN Reason: Pain Score 1-10/10 or Fever Last Admin: 05/17/19 22:19 Dose: 650 mg Documented by: Furosemide (Lasix) 80 mg PO BID@1000,1800 COLLEEN Last Admin: 05/18/19 17:21 Dose: 80 mg Documented by: Glucagon () 1 mg IM .X1 PRN PRN Reason: Hypoglycemia Heparin Sodium (Beef Lung) () 50 units IV UD PRN PRN Reason: Port-a-Cath (VAD)Heparin Flush Metoprolol Succinate (Toprol Xl (Beta Zak)) 25 mg PO DAILY COLLEEN Potassium Chloride (K-Dur) 60 meq PO X1 ONE Stop: 05/19/19 08:18 Potassium Chloride (K-Dur) 20 meq PO DAILYCM COLLEEN Sodium Chloride () 10 - 40 ml IV UD PRN PRN Reason: Port-a-Cath (VAD) Flush Last Admin: 05/18/19 06:26 Dose: 30 ml Documented by: Sodium Chloride (0.9% Nacl (Sterile) Posiflush) 10 - 40 ml IV UD PRN PRN Reason: Port access or dressing change Clinical Impression(s) from Imaging Studies Thoracentesis Ultrasound 05/18/19 10:58 IMPRESSION: Ultrasound-guided right thoracentesis. Electronically Signed: Rory Rosa, at 13:31 EST , Service support , Chest X-Ray 05/18/19 12:45 IMPRESSION: Status post right thoracentesis. There is no evidence of pneumothorax. Electronically Signed: Rory Rosa, at 15:34 EST , Service support , Medical Necessity - Tobacco Use Smoking Status: Former smoker Tobacco Use: Cigarettes Assessment/Plan All Active Problems (Last Reviewed 04/27/19 @ 09:56 by Lavern Robles, [place]-C) Bilateral pleural effusion (Acute) Acute respiratory failure with hypoxia and hypercapnia (Acute) Pericardial effusion without cardiac tamponade (Acute) Closed head injury without loss of consciousness (Acute) Debility (Acute) Weakness of both legs (Acute) Falls (Acute) Acute and chronic respiratory failure with hypercapnia (Acute) Acute on chronic diastolic heart failure (Acute) Diastolic CHF, acute on chronic (Acute) RECOMMENDATIONS: 1. Continue diuretic therapy 2. Continue nocturnal Pap therapy. 3. Wean supplemental oxygen to maintain saturations at or above 90%. 4. Encourage incentive spirometer use and mobilize patient as tolerated. 5. Could be evaluated for serial thoracentesis versus Pleurx catheter in the future 6. Walking oximetry prior to discharge IMPRESSIONS: 1. Acute on chronic hypoxemic and hypercarbic respiratory failure Appears to be secondary to decompensated heart failure and subsequent pleural fluid accumulation. The patient does have a 2 L/min baseline supplemen lacie oxygen requirement and also appears to be a chronic CO2 retainer. He does have radiographic evidence of significant bilateral pleural effusions, right greater than left. For now, the patient will be continued on diuretic therapy. Patient was significant thoracentesis yesterday with improvement in x-ray. 2. 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 Renal function appears to be baseline. The patient has been followed by Dr. Whitley of cardiology on an outpatient basis. 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 3. Obstructive sleep apnea The patient has known obstructive sleep apnea and reports that he has been compliant with the use of nocturnal BiPAP therapy. Stressed to the patient the importance of compliance with JOSE LUIS therapy to avoid rapid reaccumulation and worsening of congestive heart failure. Code Visit Inpatient E&M: 57314 Subs Hosp L2
--- NOTE | 2019-05-19 09:27 | PN.CARD_ITS ---
Subjectve: Patient is status post right-sided repeat thoracentesis on this admission removing this time 1500 cc of fluid with almost complete reexpansion of his right lung. He apparently may be awaiting a MARCO drain device to assist with minimizing his right pleural effusion. Stress echocardiogram pending. Objective: Vital Signs Temp Pulse Resp BP Pulse Ox 98.0 F 95 17 134/83 H 99 05/19/19 05:54 05/19/19 06:59 05/19/19 05:54 05/19/19 05:54 05/19/19 05:54 Oxygen Flow Rate (L/min) [3] 2 Oxygen Flow Rate (L/min) [2] 2 Oxygen Flow Rate (L/min) [1 ( 2 Initial Baseline)] Oxygen Flow Rate (L/min) 2 Oxygen Delivery Method [3] Nasal Cannula Oxygen Delivery Method [2] Nasal Cannula Oxygen Delivery Method [1 ( Nasal Cannula Initial Baseline)] Oxygen Delivery Method Nasal Cannula Weight: 193 lb 5.526 oz Body Mass Index (BMI) 31.8 Intake and Output for Last 24 Hours 05/17/19 05/18/19 05/19/19 23:59 23:59 23:59 Intake Total 965 / 965 908.34 / 908.34 Output Total 2525 / 2525 4150 / 4150 Balance -1560 / -1560 -3241.66 / -3241.66 General: Awake, Alert, Oriented x 3 HEENT: PERRL, EOMI, Sclera Non Icteric Neck: Supple, Good ROM, No Lymph Node Enlargement Lungs: Clear to auscultation Cardiovascular: Regular Rhythm, Normal S1, Normal S2, No Murmurs, No Rubs, No Gallops Vascular: No Carotid Bruits, Normal Femoral Pulses, Normal Radial Pulses, Normal Dorsalis Pedal Pulse, Normal Posterior Tibial Pulses Abdomen: Bowel Sounds Present, Soft, Non Tender, No HSM, No Organomegaly Extremities: No Cyanosis, No Clubbing, No edema Neurological: No Focal Motor or Sensory Deficit Rhythm: EKG: ECHO:Mild concentric left ventricular hypertrophy. The estimated ejection fraction is 65 %. Mild collapse/invagination of the right atrium. The global longitudinal strain = -14.4% (abnormal). Trivial pericardial effusion. There are no echocardiographic indications of cardiac tamponade. Moderate size left pleural effusion. Global LV scintillation c/w amyloidosis. Compared with echo report dated 04/08/2019, no appreciable changes noted. No interim change in pericardial effusion. Stress Test:pEnding Cardiac Cath: PCI: CT Surgery: Holter monitor: EPS: PPM: CXR: Chest CT Scan: Medical Necessity - Tobacco Use Smoking Status: Former smoker Tobacco Use: Cigarettes Assessment/Plan 1. Diastolic heart failure: The patient has evidence of amyloidosis seen on echocardiogram as well as confirm with renal biopsy. This is now the patient's second admission for congestive heart failure and right-sided pleural effusion the first of which was in April 2019 requiring right-sided thoracenteses. Since being diagnosed with amyloidosis Dr. Elam has applied chemotherapy which has improved his proteinuria a significant amount however he still has around 1 g of protein per day in his urine. Patient was initially placed on BiPAP therapy, but is now on O2 nasal cannula. He underwent right-sided thoracentesis on 05/14/2019 but only removed about 60 cc for some reason. It appears that his pleural effusion is still most likely impacting on his pulmonary performance. Repeat thoracentesis tentatively planned for tomorrow morning to assist with further pulmonary reexpansion. Repeat echocardiogram this admission showed trivial pericardial effusion normal LV function, unable to quantitate RVSP. There are some concerns about protein loss using a Pleur-evac for his second admission, so I believe it is reasonable to proceed with right-sided thoracentesis today to provide some relief and hopefully improve his heart rate. Given the patient's amyloid in his kidneys he may have difficulty achieving diuretic threshold with traditional Lasix therapy. Now that patient has had a repeat thoracentesis removing 1500 cc of fluid on the right side with almost complete reexpansion of his right lung field, he will now undergo a stress echocardiogram to assess for possible coronary ischemia. If this is grossly abnormal, the patient may require diagnostic coronary angiogram prior to discharge. If however it is negative, I would hold off on c atheterization at this time given his amyloidosis, and chronic renal insufficiency. Recommend increasing his metoprolol to 50 mg p.o. twice dailyTo achieve better heart rate control. Would recommend keeping the patient's hemoglobin above 8.0. Hemoglobin is now 9.1. After speaking with Dr. Serrano and Dr. Elam, I believe it is reasonable to hold off on pleural vacs at this time as this may contribute to additional protein wasting. I believe a MARCO drain may be a good compromise. Patient has had a positive response to chemotherapy with respect to his amyloidosis, and may require additional chemotherapy per Dr. Elam. 2. Thank you very much for the opportunity to participate in the cardiac care of your patient. Code Visit Inpatient E&M: 89659 Subs Hosp L2
--- NOTE | 2019-05-19 09:35 | STE_ITS ---
Reason For Study: DYSPNEA/SOB Stress Results Protocol: Dobutamine Stress Echo Maximum Predicted HR: 152 bpm Target HR: 129 bpm % Maximum Predicted HR: 91 % DurationHeart Rate Stage (mm:ss) (bpm) BP Dose BASELINE 93 121/77 STAGE 1 3:03 107 116/7710.00 STAGE 2 3:00 139 126/7620.00 RECOVERY 105 138/71 Stress Duration: 6:03 mm:ss Maximum Stress HR: 139 bpm Baseline Echocardiogram Findings The estimated ejection fraction is 65 %. Stress Echo Wall motion Data Resting WM Intermediate WM Stress WM Resting Wall Motion Wall Motion Stress No regional wall motion No regional wall motion abnormalities noted. abnormalities noted. EKG Data The baseline ECG displays normal sinus rhythm. The patient was titrated from 10 mcg to a maximum of 20 mcg of dobutamine during the stress. The maximum heart rate attained was 139 beats per minute. This was 91% of maximum predicted heart rate. During dobutamine infusion, there were no ST or T wave changes noted to suggest ischemia. No clinical angina was noted. Interpretation Summary The estimated ejection fraction is 65 %. Normal, adequate, dobutamine echocardiogram. Negative for ischemia by EKG and echocardiographic criteria. No anginal symptoms noted. Rare PAC noted. Appropriate blood pressure response to dobutamine. Test terminated due to attainment of target heart rate. Final LVEF is 75%. Patient tolerated the procedure well. No complications. Ordering Physician: Umang^^^ Performed By: Rosie Nuñez, NIDHI, RVT
[2019-05-19] MEDS: Metoprolol Tartrate 50 MG Tablet PO ×2 (11:13→21:16)
--- NOTE | 2019-05-19 11:38 | CASEMGMT ---
Patient's significant other called Dinah in rehab and she was upset [facility] could not transport patient to chemo. SW called patient's significant other, Juany and let her know that if patient goes to TCU he will not be able to get chemo. CORY explained SW would be happy to call other nursing homes to see if they would accept patient and if he would be able to get chemo while he is there. She told SW to talk with patient. SW spoke with patient and before SW said anything he said, I am not going to a snf. SW explained to him that [facility] TCU can take him, but he would not be able to get chemo while he is getting rehab in TCU. He said he understands and is in agreement with this plan. CORY offered to call other nursing homes to see if he could go there and get chemo and he refused stating he will only go to TCU. CORY called Ashley and left her a message asking her to start the process to obtain insurance approval. Manuela LOCKETT MSW
[2019-05-19 14:03] LABS: BUN 24 mg/dL (7-18); BUN/Creat Ratio 21.6 RATIO (10-20); Calcium,Total 8.4 mg/dL (8.5-10.1); Carbon Dioxide > 45.0 mmol/L (21.0-32.0); Chloride 96 mmol/L (98-107); Creatinine, Serum 1.11 mg/dL (0.70-1.30); EST Glomerular Filtration Rate 70 mL/min (>60); Est Glom Filt Rate - Afr Amer 85 mL/min (>60); Estimated Creatinine Clearance 63.69 ml/min; Glucose 137 mg/dL (74-106); Potassium 3.5 mmol/L (3.5-5.1); Sodium Level 140 mmol/L (136-145)
--- NOTE | 2019-05-19 17:15 | PN_ITS ---
Patient Problems: Active and Suspected Problems (Last Reviewed 04/27/19 @ 09:56 by Lavern Robles NP-C) Bilateral pleural effusion (Acute) Acute respiratory failure with hypoxia and hypercapnia (Acute) Pericardial effusion without cardiac tamponade (Acute) Closed head injury without loss of consciousness (Acute) Reason for Visit: Follow-up on respiratory failure/bilateral pleural effusions Subjective: Patient was seen and examined. He denies any complains. He feels improved. Stress ECHO was negative for ischemia, EF 65% Objective: Physical exam: General: Alert, Oriented x3, Cooperative, No apparent distress, - - On 2 L of oxygen HEENT: Atraumatic, PERRLA, EOMI, Normocephalic Oral: Moist Mucosa Neck: Supple Lungs: Diminished - All of her lung yee Cardiovascular: Regular rate, Regular Rhythm, Normal S1, Normal S2, No murmurs Abdomen: Bowel Sounds Present, Soft, Non Tender, Non-Distended, No Hepato- splenomegaly Extremities: Edema - Bilateral +1 pedal edema Skin: No rashes Musculoskeletal: No Tenderness to Palpation of Joints or Extremities Lymphatic: No Cervical, Supraclavicular, or Inguinal Adenopathy Neurological: Cranial nerves II-XII grossly intact Psych/Mental Status: Normal Affect, Appropriate Vitals/I&O's: Vital Signs Temp Pulse Resp BP Pulse Ox 98.0 F 93 20 H 113/75 97 05/19/19 11:06 05/19/19 15:18 05/19/19 11:06 05/19/19 11:06 05/19/19 11:06 Oxygen Flow Rate (L/min) [3] 2 Oxygen Flow Rate (L/min) [2] 2 Oxygen Flow Rate (L/min) [1 ( 2 Initial Baseline)] Oxygen Flow Rate (L/min) 2 Oxygen Delivery Method [3] Nasal Cannula Oxygen Delivery Method [2] Nasal Cannula Oxygen Delivery Method [1 ( Nasal Cannula Initial Baseline)] Oxygen Delivery Method Nasal Cannula Weight: 87.7 kg Body Mass Index (BMI) 31.8 Intake and Output for Last 24 Hours 05/17/19 05/18/19 05/19/19 23:59 23:59 23:59 Intake Total 965 / 965 908.34 / 908.34 400 / 400 Output Total 2525 / 2525 4150 / 4150 Balance -1560 / -1560 -3241.66 / -3241.66 400 / 400 Microbiology Past 72 Hours 05/15/19 09:45 Fluid - Thoracentesis Fluid Gram Stain - Final 05/15/19 09:45 Fluid - Thoracentesis Fluid Body Fluid Culture - Final No growth aerobically. 05/15/19 09:45 Fluid - Thoracentesis Fluid Anaerobic Culture - Preliminary No growth in 48 hours. Laboratory Results 05/15/19 09:45: Miscellaneous Cytology SEE PATHOLOGY REPORT 05/19/19 13:10: Sodium 140, Potassium 3.5, Chloride 96 L, Carbon Dioxide > 45.0 H*, Anion Gap TNP, BUN 24 H, Creatinine 1.11, Estim Creat Clear Calc 63.69, Est GFR (MDRD) Af Amer 85, Est GFR (MDRD) Non-Af 70, BUN/Creatinine Ratio 21.6 H, Glucose 137 H, Calcium 8.4 L Current Medications Acetaminophen (Tylenol) 650 mg PO Q4H PRN PRN PRN Reason: Pain Score 1-10/10 or Fever Last Admin: 05/17/19 22:19 Dose: 650 mg Documented by: Glucagon () 1 mg IM .X1 PRN PRN Reason: Hypoglycemia Heparin Sodium (Beef Lung) () 50 units IV UD PRN PRN Reason: Port-a-Cath (VAD)Heparin Flush Metoprolol Tartrate (Lopressor (Beta Zak)) 50 mg PO BID COLLEEN Last Admin: 05/19/19 11:13 Dose: 50 mg Documented by: Potassium Chloride (K-Dur) 20 meq PO DAILYCM COLLEEN Sodium Chloride () 10 - 40 ml IV UD PRN PRN Reason: Port-a-Cath (VAD) Flush Last Admin: 05/18/19 06:26 Dose: 30 ml Documented by: Sodium Chloride (0.9% Nacl (Sterile) Posiflush) 10 - 40 ml IV UD PRN PRN Reason: Port access or dressing change STROKE Vital Signs/Narrative: Vital Signs Pulse 05/19/19 15:18 93 Medical Necessity - Tobacco Use Smoking Status: Former smoker Tobacco Use: Cigarettes Assessment/Plan All Active Problems (Last Reviewed 04/27/19 @ 09:56 by Lavern Robles, [employer]PERATOR-C) Bilateral pleural effusion (Acute) Acute respiratory failure with hypoxia and hypercapnia (Acute) Pericardial effusion without cardiac tamponade (Acute) Closed head injury without loss of consciousness (Acute) Debility (Acute) Weakness of both legs (Acute) Falls (Acute) Acute and chronic respiratory failure with hypercapnia (Acute) Acute on chronic diastolic heart failure (Acute) Diastolic CHF, acute on chronic (Acute) 1. Acute on chronic combined respiratory failure secondary to bilateral pleural effusion, on 2L oxygen Status post thoracocentesis x 2, on po lasix Continue to wean off oxygen, encourage use of incentive spirometer 2. 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 Hypokalemia, replaced, repeat blood work in am 4. Acute contraction/metabolic alkalosis, off Bumex, on Lasix Potassium is being replaced, cannot start Diamox in the presence of hypokalemia; will reassess in a.m. and consider start of Diamox Repeat blood work in a.m. 4. Amyloidosis, following with oncology 5. DVT PPx- Heparin Sc Code Visit Inpatient E&M: 55725 Subs Hosp L2
[2019-05-19] MEDS: 0.9% Saline Lock 10 ML Syringe IV (17:29)
[2019-05-19] MEDS: Furosemide 80 MG Tablet PO (18:15)
[2019-05-19] MEDS: Heparin Injection (Vial) 5,000 UNIT/ML VIAL 5000 UNIT SC (21:17)
[2019-05-20 03:01] VITALS: PULSE 94
[2019-05-20 03:10] VITALS: BP 113/72; PULSE 89; RESP 19; TEMP 36.8; O2SAT 93
[2019-05-20] MEDS: 0.9% Saline Lock 10 ML Syringe IV ×2 (05:20→09:00)
[2019-05-20] MEDS: Heparin Injection (Vial) 5,000 UNIT/ML VIAL 5000 UNIT SC (05:20)
[2019-05-20 05:51] LABS: Anion Gap 3 (5-15); BUN 26 mg/dL (7-18); BUN/Creat Ratio 25.7 RATIO (10-20); Chloride 94 mmol/L (98-107); Creatinine, Serum 1.01 mg/dL (0.70-1.30); EST Glomerular Filtration Rate 78 mL/min (>60); Est Glom Filt Rate - Afr Amer 94 mL/min (>60); Glucose 108 mg/dL (74-106); Potassium 3.4 mmol/L (3.5-5.1); Sodium Level 141 mmol/L (136-145)
[2019-05-20 07:04] VITALS: PULSE 97
[2019-05-20 09:00] VITALS: BP 107/63; PULSE 110; RESP 18; TEMP 36.7; O2SAT 96
[2019-05-20] MEDS: Furosemide 80 MG Tablet PO (09:00)
[2019-05-20 09:01] VITALS: PULSE 110
[2019-05-20] MEDS: Metoprolol Tartrate 50 MG Tablet PO (09:01)
--- NOTE | 2019-05-20 09:59 | PN_ITS ---
Patient Problems: Active and Suspected Problems (Last Reviewed 04/27/19 @ 09:56 by Lavern Robles NP-C) Bilateral pleural effusion (Acute) Acute respiratory failure with hypoxia and hypercapnia (Acute) Pericardial effusion without cardiac tamponade (Acute) Closed head injury without loss of consciousness (Acute) Subjective: Patient doing well. Patient continues to refuse BiPAP overnight, but feels his respiratory status is at its baseline. Patient is having difficulty with balance and continues to work with therapy. Patient denies any muscle cramps. - Physical Exam Vitals/I&O's: Vital Signs Temp Pulse Resp BP Pulse Ox 36.7 C 110 H 18 107/63 96 05/20/19 09:00 05/20/19 09:01 05/20/19 09:00 05/20/19 09:00 05/20/19 09:00 Oxygen Flow Rate (L/min) [3] 2 Oxygen Flow Rate (L/min) [2] 2 Oxygen Flow Rate (L/min) [1 ( 2 Initial Baseline)] Oxygen Flow Rate (L/min) 2 Oxygen Delivery Method [3] Nasal Cannula Oxygen Delivery Method [2] Nasal Cannula Oxygen Delivery Method [1 ( Nasal Cannula Initial Baseline)] Oxygen Delivery Method Nasal Cannula Weight: 89.3 kg Body Mass Index (BMI) 31.8 Intake and Output for Last 24 Hours 05/18/19 05/19/19 05/20/19 23:59 23:59 23:59 Intake Total 908.34 / 908.34 800 / 800 470 / 470 Output Total 4150 / 4150 350 / 350 Balance -3241.66 / -3241.66 800 / 800 120 / 120 General: Alert, Oriented x3, Cooperative, No apparent distress, Well developed, Well nourished, - - No conversational dyspnea HEENT: Atraumatic, PERRLA, EOMI, Normocephalic, - - No scleral icterus or injection noted Oral: Moist Mucosa, No Gingival or Mucosal Lesions/ Ulcerations Neck: Supple, No JVD, No Nodes, Trachea Midline Lungs: No rhonchi, No wheeze, No rales, Diminished, - - Fair effort Cardiovascular: Regular rate, Regular Rhythm, Normal S1, Normal S2, No murmurs, No rub noted, No Gallop Abdomen: Bowel Sounds Present, Soft, Non Tender, Non-Distended Extremities: No clubbing, No cyanosis, No edema, Capillary Refill Less than 3 Seconds Skin: No rashes, No breakdown Musculoskeletal: No Tenderness to Palpation of Joints or Extremities Lymphatic: No Cervical, Supraclavicular, or Inguinal Adenopathy Neurological: Cranial nerves II-XII grossly intact, Neuro grossly intact, Motor Exam 5/5 strength throughout Psych/Mental Status: Alert and oriented to time, place, person, mood and affect Microbiology Past 72 Hours 05/15/19 09:45 Fluid - Thoracentesis Fluid Gram Stain - Final 05/15/19 09:45 Fluid - Thoracentesis Fluid Body Fluid Culture - Final No growth aerobically. 05/15/19 09:45 Fluid - Thoracentesis Fluid Anaerobic Culture - Final No anaerobic bacteria isolated. Laboratory Results 05/15/19 09:45: Miscellaneous Cytology SEE PATHOLOGY REPORT 05/19/19 13:10: Sodium 140, Potassium 3.5, Chloride 96 L, Carbon Dioxide > 45.0 H*, Anion Gap TNP, BUN 24 H, Creatinine 1.11, Estim Creat Clear Calc 63.69, Est GFR (MDRD) Af Amer 85, Est GFR (MDRD) Non-Af 70, BUN/Creatinine Ratio 21.6 H, Glucose 137 H, Calcium 8.4 L 05/20/19 05:15: Sodium 141, Potassium 3.4 L, Chloride 94 L, Carbon Dioxide 44.0 H, Anion Gap 3 L, BUN 26 H, Creatinine 1.01, Estim Creat Clear Calc 70.00, Est GFR (MDRD) Af Amer 94, Est GFR (MDRD) Non-Af 78, BUN/Creatinine Ratio 25.7 H, Glucose 108 H, Calcium 8.0 L Current Medications Acetaminophen (Tylenol) 650 mg PO Q4H PRN PRN PRN Reason: Pain Score 1-10/10 or Fever Last Admin: 05/17/19 22:19 Dose: 650 mg Documented by: Furosemide (Lasix) 80 mg PO BID@1000,1800 [facility] Last Admin: 05/20/19 09:00 Dose: 80 mg Documented by: Glucagon () 1 mg IM .X1 PRN PRN Reason: Hypoglycemia Heparin Sodium (Porcine) (Heparin Na) 5,000 unit SC Q8 [facility] Last Admin: 05/20/19 05:20 Dose: 5,000 unit Documented by: Metoprolol Tartrate (Lopressor (Beta Zak)) 50 mg PO BID [facility] Last Admin: 05/20/19 09:01 Dose: 50 mg Documented by: Potassium Chloride (K-Dur) 20 meq PO BID [facility] Sodium Chloride () 10 - 40 ml IV UD PRN PRN Reason: Port-a-Cath (VAD) Flush Last Admin: 05/20/19 09:00 Dose: 10 ml Documented by: Sodium Chloride (0.9% Nacl (Sterile) Posiflush) 10 - 40 ml IV UD PRN PRN Reason: Port access or dressing change Medical Necessity - Tobacco Use Smoking Status: Former smoker Tobacco Use: Cigarettes Assessment/Plan All Active Problems (Last Reviewed 04/27/19 @ 09:56 by Lavern Robles, [place]-C) Bilateral pleural effusion (Acute) Acute respiratory failure with hypoxia and hypercapnia (Acute) Pericardial effusion without cardiac tamponade (Acute) Closed head injury without loss of consciousness (Acute) Debility (Acute) Weakness of both legs (Acute) Falls (Acute) Acute and chronic respiratory failure with hypercapnia (Acute) Acute on chronic diastolic heart failure (Acute) Diastolic CHF, acute on chronic (Acute) RECOMMENDATIONS: 1. Continue diuretic therapy 2. Continue to encourage nocturnal Pap therapy. 3. Wean supplemental oxygen to maintain saturations at or above 90%. 4. Encourage incentive spirometer use and mobilize patient as tolerated. 5. Could be evaluated for serial thoracentesis versus Pleurx catheter in the future 6. Walking oximetry prior to discharge IMPRESSIONS: 1. Acute on chronic hypoxemic and hypercarbic respiratory failure Appears to be secondary to decompensated heart failure and subsequent pleural fluid accumulation. The patient does have a 2 L/min baseline supplemental oxygen requirement and also appears to be a chronic CO2 retainer. He does have radiographic evidence of significant bilateral pleural effusions, right greater than left. For now, the patient will be continued on diuretic therapy. Patient was significant thoracentesis yesterday with improvement in x- ray. If patient is to have a Pleurx catheter, reaccumulation would likely be warranted. Repeat chest x-ray in 2 to 4 weeks outpatient surgery follow-up may be appropriate. 2. 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 Renal function ap pears to be baseline. The patient has been followed by Dr. Whitley of cardiology on an outpatient basis. 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 3. Obstructive sleep apnea The patient has known obstructive sleep apnea and reports that he has been compliant with the use of nocturnal BiPAP therapy. Stressed to the patient the importance of compliance with JOSE LUIS therapy to avoid rapid reaccumulation and worsening of congestive heart failure. Code Visit Inpatient E&M: 74280 Subs Hosp L2
--- NOTE | 2019-05-20 11:17 | CASEMGMT ---
CORY received a call from Ashley in TCU and patient's primary insurance is now Medicare and MMO is his secondary. She said patient can come to TCU today. CORY will notify physician. Plan: [facility] TCU under skilled level of care Manuela BURGER
--- NOTE | 2019-05-20 11:35 | PCM.TXEXTCAR ---
- Diet 05/14/19 20:04 Diet: Cardiac/Low Cholesterol Dietary Modifications:: Fluid Restricted Diet Is pt able to select menu?: Yes Diet Comments: 1500mL fluid restriction - Routine Orders/Code Status O2 Liters per Minute: 2 O2 Frequency: Continuous Keep PO Greater than or Equal to (%): 92 - encourage us eof incentive spirometer Routine Lab Work: CBC - within 3 days, BMP - within 3 days Code Status: Full Code - Wound(s) Right proximal knee Wound Type: Abrasion Dressing Change: Dry Sterile Dressing Right Distal knee Wound Type: Abrasion Dressing Change: Dry Sterile Dressing Left distal outer ayala Wound Type: Abrasion Dressing Change: Dry Sterile Dressing Left distal knee Wound Type: Abrasion Dressing Change: Dry Sterile Dressing Left Proximal knee Wound Type: Abrasion Left outer thigh Wound Type: Abrasion Left flank to middle back Wound Type: Abrasion Dressing Change: Dry Sterile Dressing Right Mid Back Wound Type: Puncture Bilteral Knees Wound Type: Abrasion - Therapies Weight Bearing: Weight bearing as tolerated Extremity Affected:: Bilateral Lower Physical Therapy: Eval and Treat Occupational Therapy: Eval and Treat - Allergies/Procedures Done in Hospital Allergies/Adverse Reactions: Allergies No Known Allergies Allergy (Verified 05/14/19 15:21) Procedures: Thoracentesis - x 2 - Type of Care/Length of Stay Estimated LOS: Convalescent Care Less Than 30 days Type of Care Needed: Skilled Rehab Potential: Good Prognosis: Good - Additional Orders/Day of Discharge Additional Orders: Consult Dr. Wang in TCU so he can plan for pleurex catheter. Day of Discharge: 05/20/19 - Dietary and Speech Recommendations Dietitian Recommendations/Changes: Continue cardiac diet. Monitor need for ONS. Appetite appears good at this time. - Follow Up Care Primary Care Physician: Gerry Pate DO [Primary Care Provider] - Please follow up with your Primary Care Physician in: withi 1-2 weeks of discharge from SNF Please Follow Up With: Gerry Pate DO Please Follow Up With: Lavern Robles NP-C When: within 2 weeks
--- NOTE | 2019-05-20 11:40 | PCM.DC.SUM ---
Discharge Date and Diagnosis Date of Admission: 05/14/19 Date of Discharge: 05/20/19 - Primary Discharge Diagnosis Active and Suspected Problems (Last Reviewed 04/27/19 @ 09:56 by HOLLY Kay) Acute on chronic combined respiratory failure Acute on chronic diastolic CHF, EF 65% Bilateral recurrent pleural effusion Pericardial effusion Hypokalemia Acute contraction/metabolic alkalosis - Secondary Discharge Diagnosis Chronic Problems (Last Reviewed 04/27/19 @ 09:56 by HOLLY Kay) JOSE LUIS (obstructive sleep apnea) (Chronic) Hypertension (Chronic) Hypothyroidism (Chronic) Plasma cell dyscrasia (Chronic) Nephrotic syndrome (Chronic) Amyloidosis (Chronic) Diastolic CHF (Chronic) Proteinuria (Chronic) CHF (congestive heart failure) (Chronic) Essential (primary) hypertension (Chronic) Hospital Course and Treatment Imaging Results: Clinical Impression(s) from Imaging Studies Brain CT 05/14/19 15:45 IMPRESSION: No acute intracranial or calvarial abnormality. There is no major interval change. Electronically Signed: Landry Newton DO at 17:16 EST Tel [phone], Service support , Chest X-Ray 05/14/19 15:45 IMPRESSION: Moderate to large right pleural effusion with volume loss and atelectasis as well as a small left pleural effusion with left basilar atelectasis. Electronically Signed: Rory Rosa, at 15:58 EST , Service support , Chest CT 05/14/19 16:04 IMPRESSION: 1. Larger bilateral pleural effusions with atelectasis. 2. Fracture of the lateral left third rib. 3. Small pericardial effusion. 4. Degenerative changes of the thoracic spine. 5. Irregularity of the left 10th rib thought to represent a remote fracture. Electronically Signed: Landry Newton DO at 17:22 EST Tel [phone], Service support , Thoracentesis Ultrasound 05/15/19 08:00 IMPRESSION: Ultrasound-guided right thoracentesis. Electronically Signed: Rory Rosa at 10:59 EST , Service support , Chest X-Ray 05/15/19 09:45 IMPRESSION: Status post right thoracentesis. There is no evidence of pneumothorax. Electronically Signed: Rory Villanuevadouglas, at 12:31 EST , Service support , Thoracentesis Ultrasound 05/18/19 10:58 IMPRESSION: Ultrasound-guided right thoracentesis. Electronically Signed: Rory Villanuevadouglas, at 13:31 EST , Service support , Chest X-Ray 05/18/19 12:45 IMPRESSION: Status post right thoracentesis. There is no evidence of pneumothorax. Electronically Signed: Rory Villanuevadouglas, at 15:34 EST , Service support , Pulmonology Cardiology Oncology Operations: None Procedures: 2-D Echocardiogram - Stress ECHO 05/20/19 Summary of Care Provided: The patient is a 68 year old M with past medical history of amyloidosis with resultant proteinuria, follows with oncology, is on chemotherapy, history of chronic respiratory failure on 2 L of oxygen at home, history of recurrent pleural effusion, history of chronic diastolic CHF comes in with progressive shortness of breath that started on the morning of admission. Patient's vitals were stable in the emergency department. Chest x-ray showed moderate to large right pleural effusion with volume loss and atelectasis as well as a left small pleural effusion. He had CT of the chest done that showed larger bilateral pleural effusions with atelectasis and fracture of the third lateral third rib. Patient was seen by pulmonology, cardiology as well as oncology during the hospital stay. Per Oncology, patient's proteinuria has recently improved to about 1 g a day and he is responding well to chemotherapy. Positive plan for a pleural VAC but oncology initially wanted to stay off it. Patient was managed on Bumex drip with improvement in his diuresis. He underwent thoracocentesis x2 during the hospital stay. Last had thoracocentesis done on 05/18/19 and 1400 mL of colored fluid was drained. During the hospital stay, he had contraction alkalosis and hypokalemia that improved with replacement of potassium. He was seen by PT and OT for unsteady gait. He was discharged to the assisted facility Lasix 80 mg p.o. twice daily. Discussed with pulmonology and oncology, general surgery will be consulted in the assisted facility for probable placement of pleural catheter with subsequent drainage. Patient is due for chemotherapy next week. Discussed with oncology, his chemotherapy will probably have to be postponed until patient is discharged from TCU. Discussed with Dr. Alejo at discharge. Subjective: On the day of discharge, patient was seen and examined. Denied any new complaints. He felt improved. On 2 L of oxygen. Objective: Physical exam: General: Alert, Oriented x3, Cooperative, No apparent distress, - - On 2 L of oxygen HEENT: Atraumatic, PERRLA, EOMI, Normocephalic Oral: Moist Mucosa Neck: Supple Lungs: Diminished - especially at lower lung zones Cardiovascular: Regular rate, Regular Rhythm, Normal S1, Normal S2, No murmurs Abdomen: Bowel Sounds Present, Soft, Non Tender, Non-Distended, No Hepato-splenomegaly Extremities: Edema - Bilateral +1 pedal edema Skin: No rashes Musculoskeletal: No Tenderness to Palpation of Joints or Extremities Lymphatic: No Cervical, Supraclavicular, or Inguinal Adenopathy Neurological: Cranial nerves II-XII grossly intact Psych/Mental Status: Normal Affect, Appropriate - Physical Exam Vitals/I&O's: Vital Signs Temp Pulse Resp BP Pulse Ox 98.0 F 110 H 18 107/63 96 05/20/19 09:00 05/20/19 09:01 05/20/19 09:00 05/20/19 09:00 05/20/19 09:00 Oxygen Flow Rate (L/min) [3] 2 Oxygen Flow Rate (L/min) [2] 2 Oxygen Flow Rate (L/min) [1 ( 2 Initial Baseline)] Oxygen Flow Rate (L/min) 2 Oxygen Delivery Method [3] Nasal Cannula Oxygen Delivery Method [2] Nasal Cannula Oxygen Delivery Method [1 ( Nasal Cannula Initial Baseline)] Oxygen Delivery Method Nasal Cannula Weight: 89.3 kg Body Mass Index (BMI) 31.8 Intake and Output for Last 24 Hours 05/18/19 05/19/19 05/20/19 23:59 23:59 23:59 Intake Total 908.34 / 908.34 800 / 800 470 / 470 Output Total 4150 / 4150 350 / 350 Balance -3241.66 / -3241.66 800 / 800 120 / 120 Microbiology Past 72 Hours 05/15/19 09:45 Fluid - Thoracentesis Fluid Gram Stain - Final 05/15/19 09:45 Fluid - Thoracentesis Fluid Body Fluid Culture - Final No growth aerobically. 05/15/19 09:45 Fluid - Thoracentesis Fluid Anaerobic Culture - Final No anaerobic bacteria isolated. Laboratory Results 05/15/19 09:45: Miscellaneous Cytology SEE PATHOLOGY REPORT 05/19/19 13:10: Sodium 140, Potassium 3.5, Chloride 96 L, Carbon Dioxide > 45.0 H*, Anion Gap TNP, BUN 24 H, Creatinine 1.11, Estim Creat Clear Calc 63.69, Est GFR (MDRD) Af Amer 85, Est GFR (MDRD) Non-Af 70, BUN/Creatinine Ratio 21.6 H, Glucose 137 H, Calcium 8.4 L 05/20/19 05:15: Sodium 141, Potassium 3.4 L, Chloride 94 L, Carbon Dioxide 44.0 H, Anion Gap 3 L, BUN 26 H, Creatinine 1.01, Estim Creat Clear Calc 70.00, Est GFR (MDRD) Af Amer 94, Est GFR (MDRD) Non-Af 78, BUN/Creatinine Ratio 25.7 H, Glucose 108 H, Calcium 8.0 L Current Medications Acetaminophen (Tylenol) 650 mg PO Q4H PRN PRN PRN Reason: Pain Score 1-10/10 or Fever Last Admin: 05/17/19 22:19 Dose: 650 mg Documented by: Furosemide (Lasix) 80 mg PO BID@1000,1800 [facility] Last Admin: 05/20/19 09:00 Dose: 80 mg Documented by: Glucagon () 1 mg IM .X1 PRN PRN Reason: Hypoglycemia Heparin Sodium (Beef Lung) () 50 units IV UD PRN PRN Reason: Port-a-Cath (VAD)Heparin Flush Heparin Sodium (Porcine) (Heparin Na) 5,000 unit SC Q8 [facility] Last Admin: 05/20/19 05:20 Dose: 5,000 unit Documented by: Metoprolol Tartrate (Lopressor (Beta Zak)) 50 mg PO BID [facility] Last Admin: 05/20/19 09:01 Dose: 50 mg Documented by: Potassium Chloride (K-Dur) 20 meq PO BID [facility] Sodium Chloride () 10 - 40 ml IV UD PRN PRN Reason: Port-a-Cath (VAD) Flush Last Admin: 05/20/19 09:00 Dose: 10 ml Documented by: Sodium Chloride (0.9% Nacl (Sterile) Posiflush) 10 - 40 ml IV UD PRN PRN Reason: Port access or dressing change Discharge Diet: Low fat/ Low Cholesterol, 6 Cup Fluid Restriction, 2000 mg Sodium Diet Discharge Activity: Return to Normal Activity Home Medications: Medications to take at Discharge RX: Melatonin 10 mg PO QHS 05/14/19 RX: Acetaminophen [Tylenol Tablet] 650 mg PO Q4H PRN PRN tab 05/20/19 RX: Furosemide [Lasix] 80 mg PO BID@1000,1800 05/20/19 RX: Heparin Injection (Vial) [Heparin Na] 5,000 unit SUBCUT Q8 05/20/19 RX: Metoprolol Tartrate [Lopressor (beta zak)] 50 mg PO BID 05/20/19 RX: Potassium Chloride [K-Dur] 20 meq PO BID 05/20/19 Primary Care Physician: Gerry Pate DO [Primary Care Provider] - Please follow up with your Primary Care Physician in: withi 1-2 weeks of discharge from SNF Please Follow Up With: Gerry Pate DO Please Follow Up With: Lavern Robles NP-C When: within 2 weeks Disposition: [facility] facility Minutes spent on discharge:: 40 Patient Condition:: Stable Medical Necessity - Tobacco Use Smoking Status: Former smoker Tobacco Use: Cigarettes Meaningful Use Info Meaningful Use Diagnoses (Choose all that apply): CHF - CHF CARLTON/ARB ordered at discharge?: No Reason CARLTON/ARB not ordered?: Drug Interaction Documented LVEF (%): 65 Code Visit Inpatient E&M: 25012 Disch Hosp
--- NOTE | 2019-05-20 12:21 | PHA.DC.MR ---
Pharmacy Service has performed discharge medication reconciliation for this patient. The patient's discharge medication list was reviewed for discrepancies and discrepancies were resolved. Home Medications Melatonin 10 mg PO QHS 05/14/19 Acetaminophen [Tylenol Tablet] 650 mg PO Q4H PRN PRN tab 05/20/19 Furosemide [Lasix] 80 mg PO BID@1000,1800 tab 05/20/19 Heparin Injection (Vial) [Heparin Na] 5,000 unit SUBCUT Q8 vial 05/20/19 Metoprolol Tartrate [Lopressor (beta ivelisse)] 50 mg PO BID tab 05/20/19 Potassium Chloride [K-Dur] 20 meq PO BID tab 05/20/19
[2019-05-20 12:45] VITALS: BP 120/69; PULSE 87; RESP 18; TEMP 36.6; O2SAT 97
--- NOTE | 2019-05-20 12:47 | NURSING ---
Called repot to [facility]JÍA in TCU. Ok to leave port accessed per RN for morning blood draw.
--- NOTE | 2019-05-20 14:34 | CASEMGMT ---
CORY spoke with patient and let him know he will be going to [facility] TCU today. He said he was aware. CORY let him know SW will call Juany and let her know. CORY called Juany and let her know patient has gone over to TCU. CORY also called Dr Crowder's office and let them know patient went to TCU and he will not get chemo while he is doing rehab. Manuela LOCKETT MSW
== END 2019-05-20 13:01 | disposition skilled nursing facility (03) | DRG 291 ==
LOC: ED 17:37 → ICU 17:39 → PCU 05-15 15:54
PROVIDERS: Family Medicine; Internal Medicine Critical Care Medicine; Admitting Provider Student in an Organized Health Care Education/Training Program; Emergency Provider Emergency Medicine; PCP Student in an Organized Health Care Education/Training Program; Visit Provider Internal Medicine
DX: I50.33 Acute on chronic diastolic (congestive) heart failure (principal); J96.21 Acute and chronic respiratory failure with hypoxia; J96.22 Acute and chronic respiratory failure with hypercapnia; I31.3 Pericardial effusion (noninflammatory); N04.9 Nephrotic syndrome with unspecified morphologic changes; E85.9 Amyloidosis, unspecified; J91.8 Pleural effusion in other conditions classified elsewhere; E87.5 Hyperkalemia; E87.6 Hypokalemia; G47.33 Obstructive sleep apnea (adult) (pediatric); E03.9 Hypothyroidism, unspecified; D75.89 Other specified diseases of blood and blood-forming organs; Z99.81 Dependence on supplemental oxygen; Z79.899 Other long term (current) drug therapy; Z87.891 Personal history of nicotine dependence; I10 Essential (primary) hypertension
CPT/HCPCS: 32555; 36591; 36600; 70450; 71045; 71046; 71250; 80048; 82803; 82945; 83605; 83615; 83880; 84156; 84157; 84484; 85025; 85610; 85730; 87070; 87075; 87205; 87804; 88108; 88305; 88313; 89050; 93005; 93017; 93308; 93350; 94002; 94003; 94640; 97110; 97116; 97163; 97167; 97530; 97535; 97803; 99285; J7040; Q9957; A4216; J1940

== ENCOUNTER 2019-05-20 13:24 | Inpatient (IN) | payer MEDICARE, OTHER, SELFPAY ==
[2019-05-14 18:44] VITALS: BMI 31.8
[2019-05-20 13:56] VITALS: BP 116/74; PULSE 85; RESP 16; TEMP 36.7; O2SAT 98
[2019-05-20 14:00] VITALS: BP 116/74; PULSE 85; RESP 16; TEMP 36.7; O2SAT 98
[2019-05-20 14:54] VITALS: BMI 29.2
[2019-05-20 14:58] VITALS: BMI 29.3
--- NOTE | 2019-05-20 15:04 | CASEMGMT ---
Social Work Reviewed and agreed with social work social media intern documentation on this date. Glenys Tsang, HORIZONTAL DRILL OPERATOR [employer]IESEL LOCOMOTIVE FIRER
[2019-05-20 16:07] VITALS: PULSE 100
[2019-05-20 18:32] VITALS: BP 106/68; PULSE 106
[2019-05-20] MEDS: Metoprolol Tartrate 50 MG Tablet PO (18:32)
[2019-05-20] MEDS: Furosemide 80 MG Tablet PO (18:33)
--- NOTE | 2019-05-20 20:50 | PCM.HP.STD ---
Problem List (1) Hyperkalemia Status: Acute (2) Hypokalemia Status: Acute (3) Lymphedema Status: Chronic (4) Insomnia Status: Chronic (5) Bilateral pleural effusion Status: Acute (6) Acute respiratory failure with hypoxia and hypercapnia Status: Acute (7) JOSE LUIS (obstructive sleep apnea) Status: Chronic (8) Debility Status: Acute (9) Hypertension Status: Chronic (10) Hypothyroidism Status: Chronic (11) Plasma cell dyscrasia Status: Chronic (12) Nephrotic syndrome Status: Chronic (13) Amyloidosis Status: Chronic (14) Diastolic CHF, acute on chronic Status: Acute (15) Pericardial effusion Status: Suspected (16) Cognitive impairment Status: Acute History of Present Illness Date of Admission: 05/20/19 Chief Complaint: Here for rehabilitation, strengthening, prior to discharge home with significant other. The patient is a 68 year old Male with below past medical history presented to [facility] Emergency Department 05/14/2019 with shortness of breath. 05/14/2019 EKG sinus tachycardia, anteroseptal infarct, age undetermined, T wave abnormality, consider lateral ischemia. 05/14/2019 CT brain negative. 05/14/2019 CT chest large bilateral pleural effusions with atelectasis, left third lateral rib fracture, small pericardial effusion. Severe shortness of breath, albuterol, Duoneb give by EMS. Weak all over, Pulsox 70% on chronic oxygen 2 liters per nasal cannula. Chronic leg edema. Oxygen, Albuterol, BiPAP given with improvement. ABG shows respiratory acidosis. Lasix ordered. 05/14/2019 Admit to ICU BiPAP, around the clock aerosols, thoracentesis in AM for respiratory failure. IV Lasix, fluid restriction for acute on chronic diastolic congestive heart failure. IV Lasix, Kayexalate enema for hyperkalemia of 5.5. 05/15/2019 Dr. Serrano recommended continued diuresis, consult cardiology. Change BiPAP to AVAPS. Stop aerosols. Beta blockade after volume status optimized. 05/15/2019 Ultrasound guided right thoracentesis removed 60ML fluid. 05/15/2019 Echo mild concentric left ventricular hypertrophy. EF 65%. Negative tamponade. Amyloidosis. 05/18/2019 Ultrasound guided thoracentesis removed 1500ML fluid. 05/19/2019 Dobutamine stress echo normal. Dr. Crowder states proteinuria secondary to amyloidosis improved to 1gram/day with chemotherapy. Diuresis with Bumex drip, transitioned to Lasix 80MG twice daily. Hypokalemia corrected with Potassium chloride replacement. [facility] Plan for resumption of chemotherapy after rehabilitation. Pleurx catheter in near future after pleural effusion reaccumulation. Consult Dr. Wang for Pleurx catheter evaluation. 05/20/2019 Admit to TCU with debility, here for rehabilitation, strengthening, prior to discharge home with significant other. Past Medical History Past Medical History (Chronic Problems): Chronic Problems (Last Reviewed 04/27/19 @ 09:56 by Lavern Robles NP-C) Lymphedema (Chronic) Insomnia (Chronic) JOSE LUIS (obstructive sleep apnea) (Chronic) Hypertension (Chronic) Hypothyroidism (Chronic) Plasma cell dyscrasia (Chronic) Nephrotic syndrome (Chronic) Amyloidosis (Chronic) Diastolic CHF (Chronic) Proteinuria (Chronic) CHF (congestive heart failure) (Chronic) Essential (primary) hypertension (Chronic) Medical History: Medical History (Last Reviewed 04/27/19 @ 09:56 by Lavern Robles NP-C) Pericardial effusion (Suspected) I31.3 Proteinuria (Chronic) R80.9 CHF (congestive heart failure) (Chronic) I50.9 Essential (primary) hypertension (Chronic) I10 Allergies No Known Allergies Allergy (Verified 05/14/19 15:21) Home Medications: Ambulatory Orders Medication Instructions Recorded Melatonin 10 mg PO QHS 05/14/19 Acetaminophen [Tylenol Tablet] 650 mg PO Q4H PRN PRN tab 05/20/19 Furosemide [Lasix] 80 mg PO BID@1000,1800 05/20/19 Heparin Injection (Vial) [Heparin 5,000 unit SUBCUT Q8 05/20/19 Na] Metoprolol Tartrate [Lopressor 50 mg PO BID 05/20/19 (beta zak)] Potassium Chloride [K-Dur] 20 meq PO BID 05/20/19 Surgical History: Surgical History (Last Reviewed 04/27/19 @ 09:56 by Lavern Robles EDUCATION LIAISON-C) History of open reduction and internal fixation (ORIF) procedure Z98.890 left foot Surgical History: - - ORIF left foot. Psychiatric History: No pertinent psych hx Lives: Spouse/ Significant Other Smoking Status: Former smoker Tobacco Use: Non-smoker Alcohol: None Drugs: None - *Family History Maternal History Items: - - Mother patient unsure of the cause Paternal History Items: - - Patient not sure of father's cause of Review of Systems Constitutional: Denies: Chills, Fever, Weight Change HEENT: Denies: Head Aches, Sinus Congestion, Sinus Drainage Cardiovascular: Denies: Chest Pain, Palpitations Respiratory: Denies: Cough, Shortness of breath at rest, Sputum production Gastrointestinal: Denies: Abdominal Pain, Nausea, Vomiting Genitourinary: Denies: Dysuria Musculoskeletal: Denies: Joint Pain, Joint Tenderness Skin: Denies: Rash, Wounds Neurological: Denies: Numbness, Tingling, Focal weakness Psychiatric: Denies: Anxiety, Depression, Homicidal Ideations, Suicidal Ideations Hematologic/ Lymphatic: Denies: Easy Bruising, Easy Bleeding VTE Information - Inpt Only VTE Present on Admission: No VTE Mechan Device Prophylaxis: Knee High PEGGY Hose VTE Pharm Prophylaxis ordered?: Yes Patient Problems: Active and Suspected Problems (Last Reviewed 04/27/19 @ 09:56 by Lavern Robles NP-C) Hyperkalemia (Acute) Hypokalemia (Acute) Cognitive impairment (Acute) - Physical Exam Vitals/I&O's: Vital Signs Temp Pulse Resp BP Pulse Ox 98.0 F 106 H 16 106/68 98 05/20/19 14:00 05/20/19 18:32 05/20/19 14:00 05/20/19 18:32 05/20/19 14:00 Oxygen Flow Rate (L/min) 2 Oxygen Delivery Method Nasal Cannula Weight: 89.947 kg Body Mass Index (BMI) 29.2 Intake and Output for Last 24 Hours 05/18/19 05/19/19 05/20/19 23:59 23:59 23:59 Intake Total 320 / 320 Balance 320 / 320 General: Alert, Oriented x3, Cooperative HEENT: Atraumatic, PERRLA, EOMI, Normocephalic Neck: Supple, No JVD, Negative Carotid Bruits Lungs: Clear to auscultation, Normal air movement Cardiovascular: Regular rate, No murmurs Abdomen: Bowel Sounds Present, Soft, Non Tender Extremities: Capillary Refill Less than 3 Seconds, Edema - 2+ pitting edema, bilateral lower extremity CARLTON wraps. Skin: No rashes, No breakdown Musculoskeletal: No Tenderness to Palpation of Joints or Extremities Neurological: Cranial nerves II-XII grossly intact Psych/Mental Status: Normal Affect, Appropriate Current Medications Acetaminophen (Tylenol) 650 mg PO Q4H PRN PRN PRN Reason: Pain Score 1-10/10 or Fever Furosemide (Lasix) 80 mg PO BID@1000,1800 [facility] Last Admin: 05/20/19 18:33 Dose: 80 mg Documented by: Heparin Sodium (Beef Lung) () 50 units IV UD PRN PRN Reason: Port-a-Cath (VAD)Heparin Flush Heparin Sodium (Porcine) (Heparin Na) 5,000 unit SC Q8 [facility] Melatonin (Melatonin) 10 mg PO QHS [facility] Metoprolol Tartrate (Lopressor (Beta Zak)) 50 mg PO BID [facility] Last Admin: 05/20/19 18:32 Dose: 50 mg Documented by: Nutritional Formula (Lactose Free) (Ensure Enlive) 120 ml PO 4X/DAY [facility] Last Admin: 05/20/19 18:33 Dose: 120 ml Documented by: Potassium Chloride (K-Dur) 20 meq PO BIDCM [facility] Last Admin: 05/20/19 18:33 Dose: 20 meq Documented by: Sodium Chloride () 10 - 40 ml IV UD PRN PRN Reason: Port-a-Cath (VAD) Flush Sodium Chloride (0.9% Nacl (Sterile) Posiflush) 10 - 40 ml IV UD PRN PRN Reason: Port access or dressing change Tuberculin PPD (Tubersol, Aplisol, Ppd) 5 tu ID X1 ONE Stop: 05/21/19 10:01 Tuberculin PPD (Tubersol, Aplisol, Ppd) 5 tu ID X1 ONE Stop: 05/28/19 10:01 Assessment/Plan All Active Problems (Last Reviewed 04/27/19 @ 09:56 by Lavern Robles NP-C) Bilateral pleural effusion (Acute) Acute respiratory failure with hypoxia and hypercapnia (Acute) Pericardial effusion without cardiac tamponade (Acute) Closed head injury without loss of consciousness (Acute) Hyperkalemia (Acute) Hypokalemia (Acute) Cognitive impairment (Acute) Debility (Acute) Weakness of both legs (Acute) Falls (Acute) Acute and chronic respiratory failure with hypercapnia (Acute) Acute on chronic diastolic heart failure (Acute) Diastolic CHF, acute on chronic (Acute) 68 year old male with below past medical history hospitalized for acute on chronic hypoxic hypercapnic respiratory failure secondary to bilateral pleural effusions fro acute on chronic diastolic congestive heart failure complicated by amyloidosis, hypokalemia, admitted to TCU with debility, here for rehabilitation, strengthening, prior to discharge home with significant other. Debility - PT/OT. Cognition - ST. Pain - Tylenol 650MG Q4H PRN pain (1-10) Bowel - Miralax 17GM daily, Senna/colace 1 tablet BID, Dulcolax 10MG daily PRN. Adult immunization - Administer Prevnar 13, Pneumovax 23, Fluzone as necessary. DVT prophylaxis - Lovenox 40MG SC daily. Nutrition - Ensure 120ML 4x/day. Chronic diastolic congestive heart failure - Metoprolol 50MG BID, Lasix 80MG BID. Insomnia - Melatonin 10MG QHS. Hypokalemia - K-Dur 20MEQ twice daily. Recurrent pleural effusions - Consult Dr. Wang to place Pleurx catheter when fluid reaccumulates. Amyloidosis - Resume chemotherapy with Dr. Crowder once resident can walk.
[2019-05-20] MEDS: MELATONIN 10 MG TABLET PO (20:52)
[2019-05-20] MEDS: Heparin Injection (Vial) 5,000 UNIT/ML VIAL 5000 UNIT SC (20:53)
[2019-05-21 05:58] VITALS: BP 99/65; PULSE 97
[2019-05-21] MEDS: Metoprolol Tartrate 50 MG Tablet PO ×2 (05:58→16:49)
[2019-05-21] MEDS: Enoxaparin 40 MG/0.4 ML Syringe SC (06:03)
[2019-05-21 06:54] LABS: Absolute Lymphocyte Count 0.87 X10^3/uL (0.83-4.51); Absolute Neutrophil Count 3.4 X10^3/uL (2.0-7.7); Basophil# 0.02 X10^3/uL; Basophil% 0.4 % (0-1); Eosinophil# 0.07 X10^3/uL; Eosinophils% 1.5 % (0-5); Hematocrit 29.5 % (40-54); Hemoglobin 9.3 g/dL (13.0-16.5); Lymphocyte # 0.87 X10^3/ul (4.0); Lymphocyte % 18.6 % (19-41); Mean Corp Hgb Conc 31.5 g/dL (32-36); Mean Corpuscular Volume 101.4 fL (80-94); Mean Platelet Vol. 11.5 fl (6.2-12.0); Monocyte# 0.33 X10^3/uL; Monocyte% 7.1 % (0-10); NRBC Flagged by Analyzer 0 % (0-5); Neutrophil # 3.39 X10^3/uL (2.7-7.7); Neutrophil % 72.4 % (47-70); Platelet Count 123 K/mm3 (150-450); RBC Distribution Width SD 50.6 fl (35.1-43.9); Red Blood Count 2.91 M/mm3 (4.6-6.2); White Blood Count 4.7 K/mm3 (4.4-11.0)
[2019-05-21 07:01] VITALS: O2SAT 96
[2019-05-21 07:05] LABS: Anion Gap 1 (5-15); BUN 32 mg/dL (7-18); BUN/Creat Ratio 26.9 RATIO (10-20); Calcium,Total 8.4 mg/dL (8.5-10.1); Chloride 97 mmol/L (98-107); Creatinine, Serum 1.19 mg/dL (0.70-1.30); EST Glomerular Filtration Rate 65 mL/min (>60); Est Glom Filt Rate - Afr Amer 78 mL/min (>60); Estimated Creatinine Clearance 59.41 ml/min; Glucose 110 mg/dL (74-106); Potassium 4.3 mmol/L (3.5-5.1); Sodium Level 142 mmol/L (136-145)
[2019-05-21] MEDS: Furosemide 80 MG Tablet PO ×2 (07:41→16:49)
[2019-05-21 08:52] VITALS: O2SAT 98
[2019-05-21] MEDS: Tuberculin,Purif.prot.deriv. 50 TU/ML Vial 5 ML ID (11:03)
[2019-05-21 14:18] VITALS: BP 98/64; PULSE 82; RESP 16; TEMP 36.5; O2SAT 98
[2019-05-21 16:49] VITALS: BP 98/64; PULSE 98
[2019-05-21] MEDS: Doxepin Hcl 25 MG Capsule PO (19:58)
[2019-05-22 05:20] VITALS: BP 107/71; PULSE 107
[2019-05-22] MEDS: Metoprolol Tartrate 50 MG Tablet PO ×2 (05:20→18:28)
[2019-05-22] MEDS: Enoxaparin 40 MG/0.4 ML Syringe SC (05:21)
[2019-05-22] MEDS: Senna/Docusate Sodium 1 Tablet PO (05:21)
[2019-05-22 05:25] VITALS: BP 107/71; PULSE 107; RESP 16; O2SAT 98
[2019-05-22 06:45] VITALS: O2SAT 97
[2019-05-22] MEDS: Furosemide 80 MG Tablet PO ×2 (11:12→18:28)
[2019-05-22 12:05] VITALS: PULSE 101; RESP 20
--- NOTE | 2019-05-22 12:17 | PCM.CONS.GEN ---
Problem List (1) Pericardial effusion without cardiac tamponade Status: Acute Reason for Consult Date of Consultation: 05/22/19 Reason for Consultation: Evaluation for Pleurx catheter History of Present Illness: The patient is a 68 year old M [] Past Medical History Past Medical History (Chronic Problems): Chronic Problems (Last Reviewed 04/27/19 @ 09:56 by Lavern Robles CREDENTIALING MANAGER-C) Lymphedema (Chronic) Insomnia (Chronic) JOSE LUIS (obstructive sleep apnea) (Chronic) Hypertension (Chronic) Hypothyroidism (Chronic) Plasma cell dyscrasia (Chronic) Nephrotic syndrome (Chronic) Amyloidosis (Chronic) Diastolic CHF (Chronic) Proteinuria (Chronic) CHF (congestive heart failure) (Chronic) Essential (primary) hypertension (Chronic) Medical History: Medical History (Last Reviewed 04/27/19 @ 09:56 by Lavern Robles CREDENTIALING MANAGER-C) Pericardial effusion (Suspected) I31.3 Proteinuria (Chronic) R80.9 CHF (congestive heart failure) (Chronic) I50.9 Essential (primary) hypertension (Chronic) I10 Allergies No Known Allergies Allergy (Verified 05/14/19 15:21) Home Medications: Ambulatory Orders Medication Instructions Recorded Melatonin 10 mg PO QHS 05/14/19 Acetaminophen [Tylenol Tablet] 650 mg PO Q4H PRN PRN tab 05/20/19 Furosemide [Lasix] 80 mg PO BID@1000,1800 05/20/19 Heparin Injection (Vial) [Heparin 5,000 unit SUBCUT Q8 05/20/19 Na] Metoprolol Tartrate [Lopressor 50 mg PO BID 05/20/19 (beta zak)] Potassium Chloride [K-Dur] 20 meq PO BID 05/20/19 Surgical History: Surgical History (Last Reviewed 04/27/19 @ 09:56 by Lavern Robles CREDENTIALING MANAGER-C) History of open reduction and internal fixation (ORIF) procedure Z98.890 left foot Surgical History: - - ORIF left foot. Psychiatric History: No pertinent psych hx Lives: Spouse/ Significant Other Smoking Status: Former smoker Tobacco Use: Non-smoker Alcohol: None Drugs: None - *Family History Maternal History Items: - - Mother patient unsure of the cause Paternal History Items: - - Patient not sure of father's cause of Review of Systems Constitutional: Denies: Anorexia, Fever HEENT: Denies: Difficulty Swallowing Respiratory: Reports: Shortness of breath upon exertion Gastrointestinal: Denies: Abdominal Pain, Nausea Patient Problems: Active and Suspected Problems (Last Reviewed 04/27/19 @ 09:56 by Lavern Robles NP-C) Hyperkalemia (Acute) Hypokalemia (Acute) Cognitive impairment (Acute) - Physical Exam Vitals/I&O's: Vital Signs Temp Pulse Resp BP Pulse Ox 97.7 F L 107 H 16 107/71 97 05/21/19 14:18 05/22/19 05:25 05/22/19 05:25 05/22/19 05:25 05/22/19 06:45 Oxygen Flow Rate (L/min) 2 Oxygen Delivery Method Nasal Cannula Weight: 198 lb 4.787 oz Body Mass Index (BMI) 29.2 Intake and Output for Last 24 Hours 05/20/19 05/21/19 05/22/19 23:59 23:59 23:59 Intake Total 320 / 320 720 / 720 360 / 360 Output Total 125 / 125 Balance 320 / 320 720 / 720 235 / 235 General: Alert, Oriented x3 Lungs: No rales Cardiovascular: Regular rate, Regular Rhythm Abdomen: Soft, Non Tender, Non-Distended Current Medications Acetaminophen (Tylenol) 650 mg PO Q4H PRN PRN PRN Reason: Pain Score 1-10/10 or Fever Bisacodyl (Dulcolax) 10 mg PO DAILY PRN PRN Reason: Constipation Doxepin HCl (Sinequan) 25 mg PO QHS [facility] Last Admin: 05/21/19 19:58 Dose: 25 mg Documented by: Enoxaparin Sodium (Lovenox) 40 mg SC DAILY@0600 [facility] Last Admin: 05/22/19 05:21 Dose: 40 mg Documented by: Furosemide (Lasix) 80 mg PO BID@1000,1800 [facility] Last Admin: 05/22/19 11:12 Dose: 80 mg Documented by: Heparin Sodium (Beef Lung) () 50 units IV UD PRN PRN Reason: Port-a-Cath (VAD)Heparin Flush Metoprolol Tartrate (Lopressor (Beta Zak)) 50 mg PO BID [facility] Last Admin: 05/22/19 05:20 Dose: 50 mg Documented by: Polyethylene Glycol (Miralax) 17 gm PO DAILY [facility] Last Admin: 05/22/19 05:24 Dose: Not Given Documented by: Pot[facility] Last Admin: 05/22/19 11:11 Dose: 20 meq Documented by: Senna/Docusate Sodium (Senokot-S, Lucita-Colace) 1 tablet PO BID [facility] Last Admin: 05/22/19 05:21 Dose: 1 tablet Documented by: Sodium Chloride () 10 - 40 ml IV UD PRN PRN Reason: Port-a-Cath (VAD) Flush Sodium Chloride (0.9% Nacl (Sterile) Posiflush) 10 - 40 ml IV UD PRN PRN Reason: Port access or dressing change Tuberculin PPD (Tubersol, Aplisol, Ppd) 5 tu ID X1 ONE Stop: 05/28/19 10:01 Assessment/Plan All Active Problems (Last Reviewed 04/27/19 @ 09:56 by Lavern Robles, CREDENTIALING MANAGER-C) Bilateral pleural effusion (Acute) Acute respiratory failure with hypoxia and hypercapnia (Acute) Pericardial effusion without cardiac tamponade (Acute) Closed head injury without loss of consciousness (Acute) Hyperkalemia (Acute) Hypokalemia (Acute) Cognitive impairment (Acute) Debility (Acute) Weakness of both legs (Acute) Falls (Acute) Acute and chronic respiratory failure with hypercapnia (Acute) Acute on chronic diastolic heart failure (Acute) Diastolic CHF, acute on chronic (Acute) 68-year-old male with recurrent right pleural effusions 1. I was consulted for possible Pleurx catheter. I was told by the hospitalist that the patient needed a Pleurx catheter due to recurrent right pleural effusions and this was discussed. I discussed this with the patient in detail. I then discussed this with Dr. Crowder, who informed me that between himself and Dr. Lunsford they had discussed this and the decided that this was not optimal treatment. They would not like a Pleurx catheter placed at this time. I discussed this with the patient and canceled his surgery on Saturday. Please recontact me if there is any change in treatment plan or desire to move forward. Sd Wang MD Pager: [facility] [address] [place] [address], [address] [place] [address] Office:
--- NOTE | 2019-05-22 14:02 | PHA.CONS_ITS ---
<LynnmychalLyn M - Last Filed: 05/22/19 14:02> Progress Note - Pharmacy Subjective: TCU ADMISSION Objective: Allergies No Known Allergies Allergy (Verified 05/14/19 15:21) Current Medications Generic Name Dose Route Start Last Admin Trade Name Freq PRN Reason Stop Dose Admin Acetaminophen 650 mg 05/20/19 14:08 Tylenol PO Q4H PRN PRN Pain Score 1-10/10 or Fever Bisacodyl 10 mg 05/20/19 21:14 Dulcolax PO DAILY PRN Constipation Doxepin HCl 25 mg 05/21/19 22:00 05/21/19 19:58 Sinequan PO 25 mg QHS [facility] Administration Enoxaparin Sodium 40 mg 05/21/19 06:00 05/22/19 05:21 Lovenox SC 40 mg DAILY@0600 [facility] Administration Furosemide 80 mg 05/20/19 18:00 05/22/19 11:12 Lasix PO 80 mg BID@1000,1800 [facility] Administration Heparin Sodium (Beef Lung) 50 units 05/20/19 13:59 IV UD PRN Port-a-Cath (VAD)Heparin Flush Metoprolol Tartrate 50 mg 05/20/19 18:00 05/22/19 05:20 Lopressor (Beta Zak) PO 50 mg BID [facility] Administration Polyethylene Glycol 17 gm 05/21/19 06:00 05/22/19 05:24 Miralax PO Not Given DAILY [facility] Potassium Chloride 20 meq 05/20/19 17:00 05/22/19 11:11 K-Dur PO 20 meq BIDCM [facility] Administration Senna/Docusate Sodium 1 tablet 05/21/19 06:00 05/22/19 05:21 Senokot-S, Lucita-Colace PO 1 tablet BID [facility] Administration Sodium Chloride 10 - 40 ml 05/20/19 13:59 IV UD PRN Port-a-Cath (VAD) Flush Sodium Chloride 10 - 40 ml 05/20/19 13:59 0.9% Nacl (Sterile) Posiflush IV UD PRN Port access or dressing change Tuberculin PPD 5 tu 05/28/19 10:00 Tubersol, Aplisol, Ppd ID 05/28/19 10:01 X1 ONE Problem List (Last Reviewed 04/27/19 @ 09:56 by Lavern Robles, INSURANCE CLAIMS PROCESSOR-C) Hyperkalemia (Acute) Hypokalemia (Acute) Lymphedema (Chronic) Insomnia (Chronic) Cognitive impairment (Acute) Vital Signs Temp Pulse Resp BP Pulse Ox 97.7 F L 107 H 16 107/71 97 05/21/19 14:18 05/22/19 05:25 05/22/19 05:25 05/22/19 05:25 05/22/19 06:45 Oxygen Flow Rate (L/min) 2 Oxygen Delivery Method Nasal Cannula Weight: 89.947 kg Body Mass Index (BMI) 29.2 Sodium 142 mmol/L (136-145) 05/21/19 06:40 Potassium 4.3 mmol/L (3.5-5.1) 05/21/19 06:40 Chloride 97 mmol/L (98-107) L 05/21/19 06:40 Carbon Dioxide 44.0 mmol/L (21.0-32.0) H 05/21/19 06:40 Anion Gap 1 (5-15) L 05/21/19 06:40 BUN 32 mg/dL (7-18) H 05/21/19 06:40 Creatinine 1.19 mg/dL (0.70-1.30) 05/21/19 06:40 Est GFR (MDRD) Af Amer 78 mL/min (>60) 05/21/19 06:40 Est GFR (MDRD) Non-Af 65 mL/min (>60) 05/21/19 06:40 BUN/Creatinine Ratio 26.9 RATIO (10-20) H 05/21/19 06:40 Glucose 110 mg/dL (74-106) H 05/21/19 06:40 Assessment/Plan: 1. Pain: Tylenol 650mg PO Q4h PRN Pain 1-10 or Fever. Please continue to monitor for S/S increased/decreased pain, PRN medication usage, temperature. 2. CHF: Lopressor 50mg PO BID, Lasix 80mg PO BID, K-Dur 20MEq PO BID. Please continue to monitor BP, pulse, fluid status, potassium levels, BMP 3. DVT Prophylaxis: Lovenox 40mg SC Daily. Please continue to monitor renal function, S/S bleeding/bruising. Psychotropic Medications: *4. Insomnia: Doxepin 25mg PO QHS. This is a [employer] medication. Please evaluate for appropriate use. If possible, please consider switching to another agent to treat insomnia. Unnecessary Medications: None *Bowel Regimen: Miralax 17g PO Daily, Senna/Docusate 1 tab PO BID, Dulcolax 10mg PO daily PRN. Patient has refused the past 2 scheduled doses of both agents. If the patient continues to refuse scheduled medications, please consider changing to PRN status. Date of Note:: 05/22/19 - Provider Comments Provider responsibility: Provider responsible to enter orders to implement recommendations <Abdifatah Alejo Chi - Last Filed: 05/22/19 15:47> Progress Note - Pharmacy Subjective: [] Objective: Allergies No Known Allergies Allergy (Verified 05/14/19 15:21) Current Medications Generic Name Dose Route Start Last Admin Trade Name Freq PRN Reason Stop Dose Admin Acetaminophen 650 mg 05/20/19 14:08 Tylenol PO Q4H PRN PRN Pain Score 1-10/10 or Fever Bisacodyl 10 mg 05/20/19 21:14 Dulcolax PO DAILY PRN Constipation Doxepin HCl 25 mg 05/21/19 22:00 05/21/19 19:58 Sinequan PO 25 mg QHS [facility] Administration Enoxaparin Sodium 40 mg 05/21/19 06:00 05/22/19 05:21 Lovenox SC 40 mg DAILY@0600 [facility] Administration Furosemide 80 mg 05/20/19 18:00 05/22/19 11:12 Lasix PO 80 mg BID@1000,1800 [facility] Administration Heparin Sodium (Beef Lung) 50 units 05/20/19 13:59 IV UD PRN Port-a-Cath (VAD)Heparin Flush Metoprolol Tartrate 50 mg 05/20/19 18:00 05/22/19 05:20 Lopressor (Beta Zak) PO 50 mg BID [facility] Administration Polyethylene Glycol 17 gm 05/21/19 06:00 05/22/19 05:24 Miralax PO Not Given DAILY [facility] Potassium Chloride 20 meq 05/20/19 17:00 05/22/19 11:11 K-Dur PO 20 meq BIDCM [facility] Administration Senna/Docusate Sodium 1 tablet 05/21/19 06:00 05/22/19 05:21 Senokot-S, Lucita-Colace PO 1 tablet BID [facility] Administration Sodium Chloride 10 - 40 ml 05/20/19 13:59 IV UD PRN Port-a-Cath (VAD) Flush Sodium Chloride 10 - 40 ml 05/20/19 13:59 0.9% Nacl (Sterile) Posiflush IV UD PRN Port access or dressing change Tuberculin PPD 5 tu 05/28/19 10:00 Tubersol, Aplisol, Ppd ID 05/28/19 10:01 X1 ONE Problem List (Last Reviewed 04/27/19 @ 09:56 by Lavern Robles NP-C) Hyperkalemia (Acute) Hypokalemia (Acute) Lymphedema (Chronic) Insomnia (Chronic) Cognitive impairment (Acute) Vital Signs Temp Pulse Resp BP Pulse Ox 97.7 F L 107 H 16 107/71 97 05/21/19 14:18 05/22/19 05:25 05/22/19 05:25 05/22/19 05:25 05/22/19 06:45 Oxygen Flow Rate (L/min) 2 Oxygen Delivery Method Nasal Cannula Weight: 89.947 kg Body Mass Index (BMI) 29.2 Sodium 142 mmol/L (136-145) 05/21/19 06:40 Potassium 4.3 mmol/L (3.5-5.1) 05/21/19 06:40 Chloride 97 mmol/L (98-107) L 05/21/19 06:40 Carbon Dioxide 44.0 mmol/L (21.0-32.0) H 05/21/19 06:40 Anion Gap 1 (5-15) L 05/21/19 06:40 BUN 32 mg/dL (7-18) H 05/21/19 06:40 Creatinine 1.19 mg/dL (0.70-1.30) 05/21/19 06:40 Est GFR (MDRD) Af Amer 78 mL/min (>60) 05/21/19 06:40 Est GFR (MDRD) Non-Af 65 mL/min (>60) 05/21/19 06:40 BUN/Creatinine Ratio 26.9 RATIO (10-20) H 05/21/19 06:40 Glucose 110 mg/dL (74-106) H 05/21/19 06:40 Assessment/Plan: Psychotropic Medications: Unnecessary Medications: Bowel Regimen: - Provider Comments Provider responsibility: Provider responsible to enter orders to implement recommendations Provider Comments to Recommendations by Pharmacy: Disagree: Define - Resident tolerated Doxepin 25MG QHS last admission, will continue.
[2019-05-22 16:00] VITALS: BP 103/68; PULSE 101; RESP 20; TEMP 36.6
[2019-05-22 18:28] VITALS: BP 103/68; PULSE 102
[2019-05-22] MEDS: Doxepin Hcl 25 MG Capsule PO (20:06)
[2019-05-23] VITALS (10 sets, daily range): BP systolic 82–105; BP diastolic 42–72; PULSE 89–102; RESP 16–18; TEMP 36.6; O2SAT 94–98
[2019-05-23] MEDS: 0.9% Saline Lock 10 ML Syringe IV (03:59)
[2019-05-23] MEDS: Enoxaparin 40 MG/0.4 ML Syringe SC (05:28)
[2019-05-23] MEDS: Metoprolol Tartrate 50 MG Tablet PO ×2 (08:06→17:54)
--- NOTE | 2019-05-23 08:07 | NURSING ---
pt refuses yashira wraps during the day. pt stated he only wears them at night.
[2019-05-23] MEDS: Furosemide 80 MG Tablet PO ×2 (10:16→17:54)
[2019-05-23] MEDS: Acetaminophen 325 MG Tablet 650 MG PO (10:17)
[2019-05-23] MEDS: Doxepin Hcl 25 MG Capsule PO (20:55)
[2019-05-24 05:08] VITALS: BP 106/64; PULSE 94
[2019-05-24] MEDS: Metoprolol Tartrate 50 MG Tablet PO ×2 (05:08→17:10)
[2019-05-24] MEDS: Enoxaparin 40 MG/0.4 ML Syringe SC (05:08)
--- NOTE | 2019-05-24 07:40 | NURSING ---
pt refused to wear yashira wraps this morning stating he only wears them at night. Ann Marie MEJÍA aware
[2019-05-24 07:46] VITALS: O2SAT 92
[2019-05-24 09:06] VITALS: PULSE 93; RESP 18; O2SAT 91
[2019-05-24] MEDS: Furosemide 80 MG Tablet PO ×2 (09:22→17:10)
--- NOTE | 2019-05-24 12:30 | NURSING ---
Addendum entered by Ann Marie Peña 05/24/19 13:41: dr sara gaitan and beverly friend. Original Note: pt alarm sounding, SALES MERCHANDISE ASSOCIATE entered room and pt had slid out of chair to floor. no injury. pt did not hit head, he was attempting to put socks on to close to edge of chair and slid to floor. Dysom applied to chair to prevent sliding. pt already has alarm for chair and bed. pt assisted to bed to rest. alarm in place. bed in low position. call light in reach.
[2019-05-24 12:45] VITALS: BP 132/76; PULSE 105; RESP 18; O2SAT 96
[2019-05-24 14:52] VITALS: BP 132/76; PULSE 105; RESP 18; TEMP 36.3; O2SAT 96
[2019-05-24 17:10] VITALS: BP 132/76; PULSE 105
[2019-05-24] MEDS: Doxepin Hcl 25 MG Capsule PO (22:27)
[2019-05-25 06:56] VITALS: BP 104/67; PULSE 122
[2019-05-25] MEDS: Enoxaparin 40 MG/0.4 ML Syringe SC (06:56)
[2019-05-25] MEDS: Metoprolol Tartrate 50 MG Tablet PO ×2 (06:56→17:08)
[2019-05-25] MEDS: Furosemide 80 MG Tablet PO ×2 (11:35→17:07)
[2019-05-25 16:00] VITALS: BP 108/57; PULSE 65; RESP 20; TEMP 36.7; O2SAT 92
[2019-05-25 17:08] VITALS: BP 108/57; PULSE 70
[2019-05-25] MEDS: Doxepin Hcl 25 MG Capsule PO (21:37)
[2019-05-25 22:25] VITALS: PULSE 63; O2SAT 99
--- NOTE | 2019-05-26 02:56 | NURSING ---
Addendum entered by Melba Rivera 05/26/19 05:42: Patient seen ambulating out of room. Patient yelling he wants a coke. Patient ambulated back to room, sat on bed. Patient educated on fluid restriction. AM medications given with water at this time. Patient agitated and shaking. Tried 1:1 with patient. Patient states, I'm Pissed at this place. This nurse asked why? Patient stated, because I cannot have stuff to drink, you guys are dehydrating me. Will update RN. Addendum entered by Melba Rivera 05/26/19 03:02: Patient continuously asking for water. Patient was given some Ice water around 02:00 am. At this time patient continues to ask. BUTTON BREAKER gave patient small amount of ice chips and patient upset, slammed cup down and yelling. This nurse has attempted to educate patient several times throughout shift on reasons why he is on fluid restriction and for Heart failure. Patient declined to listened. Patient states, I will do what I want to do. RN aware patient continues to be non-compliant. Original Note: Patient found up several times throughout night. Patient was caught turning his alarm off himself. Patient educated on use of call light and risks of falling. Patient agreed to use call light. Patient ambulated to restroom. Patient advised to use call light when finished. This nurse waited and then heard patient shut bathroom door. Patient found at sink using hand to get water from sink. Patient educated on fluid restriction, and CHF at this time. Patent refused to listed. Patient also educated and reminded on use of call light. PA placed in area patient cannot see at this time.
[2019-05-26 05:36] VITALS: BP 132/73; PULSE 128
[2019-05-26] MEDS: Metoprolol Tartrate 50 MG Tablet PO (05:36)
[2019-05-26] MEDS: Enoxaparin 40 MG/0.4 ML Syringe SC (05:38)
[2019-05-26 08:29] LABS: Absolute Lymphocyte Count 0.87 X10^3/uL (0.83-4.51); Absolute Neutrophil Count 3.3 X10^3/uL (2.0-7.7); Basophil# 0.03 X10^3/uL; Basophil% 0.7 % (0-1); Eosinophil# 0.03 X10^3/uL; Eosinophils% 0.7 % (0-5); Hematocrit 29.9 % (40-54); Hemoglobin 8.9 g/dL (13.0-16.5); Lymphocyte # 0.87 X10^3/ul (4.0); Lymphocyte % 18.9 % (19-41); Mean Corp Hgb Conc 29.8 g/dL (32-36); Mean Corpuscular Hgb 31.2 pg (27.0-32.0); Mean Corpuscular Volume 104.9 fL (80-94); Mean Platelet Vol. 11.2 fl (6.2-12.0); Monocyte# 0.36 X10^3/uL; Monocyte% 7.8 % (0-10); NRBC Flagged by Analyzer 0 % (0-5); Neutrophil % 71.7 % (47-70); Platelet Count 169 K/mm3 (150-450); RBC Distribution Width CV 13.7 % (11.6-14.6); RBC Distribution Width SD 52.5 fl (35.1-43.9); Red Blood Count 2.85 M/mm3 (4.6-6.2); White Blood Count 4.6 K/mm3 (4.4-11.0)
[2019-05-26 08:45] LABS: ALB/GLOB Ratio 0.7 RATIO (0.9-2.4); AST(SGOT) 10 U/L (15-37); Alanine Aminotransfer ALT/SGPT 18 U/L (16-61); Albumin, Serum 2.1 g/dL (3.2-5.0); Alkaline Phosphatase 107 U/L (45-117); Anion Gap 1 (5-15); BUN 51 mg/dL (7-18); BUN/Creat Ratio 36.7 RATIO (10-20); Calcium,Total 8.7 mg/dL (8.5-10.1); Chloride 101 mmol/L (98-107); Creatinine, Serum 1.39 mg/dL (0.70-1.30); EST Glomerular Filtration Rate 54 mL/min (>60); Est Glom Filt Rate - Afr Amer 65 mL/min (>60); Estimated Creatinine Clearance 50.86 ml/min; Glucose 117 mg/dL (74-106); Potassium 5.2 mmol/L (3.5-5.1); Protein, Total 5.1 g/dL (6.4-8.2); Sodium Level 142 mmol/L (136-145)
[2019-05-26 08:47] LABS: BNP,B-Type NATRIURETIC PEPTIDE 549.2 pg/mL (0-100)
[2019-05-26] MEDS: Furosemide 80 MG Tablet PO (09:27)
[2019-05-26 09:30] VITALS: PULSE 90; RESP 18
[2019-05-26 14:27] VITALS: BP 89/57; PULSE 89; RESP 16; TEMP 36.5; O2SAT 93
[2019-05-26] MEDS: Sodium Polystyrene Sulfonate 15 GM/60 ML UDC PO (17:34)
[2019-05-26 17:42] VITALS: BP 89/57; PULSE 89
[2019-05-26] MEDS: DOXEPIN HCL 50 MG CAPSULE PO (20:15)
[2019-05-27] MEDS: Enoxaparin 40 MG/0.4 ML Syringe SC (05:17)
[2019-05-27 05:20] VITALS: BP 111/76; PULSE 64
[2019-05-27] MEDS: Metoprolol Tartrate 50 MG Tablet PO ×2 (05:20→17:06)
[2019-05-27 06:17] LABS: Anion Gap 2 (5-15); BUN 53 mg/dL (7-18); BUN/Creat Ratio 36.8 RATIO (10-20); Calcium,Total 8.7 mg/dL (8.5-10.1); Chloride 99 mmol/L (98-107); Creatinine, Serum 1.44 mg/dL (0.70-1.30); EST Glomerular Filtration Rate 52 mL/min (>60); Est Glom Filt Rate - Afr Amer 63 mL/min (>60); Glucose 117 mg/dL (74-106); Potassium 4.8 mmol/L (3.5-5.1); Sodium Level 141 mmol/L (136-145)
[2019-05-27 07:57] VITALS: O2SAT 93
--- NOTE | 2019-05-27 10:02 | NURSING ---
Spoke with Davina from [facility] who was requesting an update on the patient. This nurse made her aware that the pt remains non-compliant with diet and fluid restrictions. Was informed by Davina that Dena Robison would be the new supervisor contact lens requesting updates starting next week.
[2019-05-27] MEDS: Furosemide 80 MG Tablet PO ×2 (10:09→17:06)
[2019-05-27 13:39] VITALS: BP 105/58; PULSE 86; RESP 18; TEMP 36.6; O2SAT 93
--- NOTE | 2019-05-27 16:08 | CASEMGMT ---
Social Work IDT met with pt for care plan meeting. Pt on cardiac diet and fluid restriction. Pt able to do transfers at [facility] and able to walk 276ft with walker/rollator. Pt is set-up to Sup for all ADLS and is SBA for toileting tasks. Educated pt on MC coverage and discussed DME needs, no DME needs at this time. Elba Dawson, social work communications intern
--- NOTE | 2019-05-27 16:49 | CASEMGMT ---
Social Work Reviewed and agreed with social work international accountant documentation on this date. Glenys Tsang, SUPERVISOR SHED WORKERS ELECTRONIC TECHNOLOGIST
[2019-05-27 17:06] VITALS: BP 105/58; PULSE 86
[2019-05-27] MEDS: DOXEPIN HCL 50 MG CAPSULE PO (19:51)
[2019-05-27 19:54] VITALS: PULSE 90; RESP 18; O2SAT 98
[2019-05-28 05:21] VITALS: BP 114/74; PULSE 111
[2019-05-28] MEDS: Metoprolol Tartrate 50 MG Tablet PO ×2 (05:21→17:40)
[2019-05-28] MEDS: Enoxaparin 40 MG/0.4 ML Syringe SC (05:22)
[2019-05-28 06:02] LABS: Absolute Lymphocyte Count 0.93 X10^3/uL (0.83-4.51); Absolute Neutrophil Count 3.5 X10^3/uL (2.0-7.7); Basophil# 0.02 X10^3/uL; Basophil% 0.4 % (0-1); Eosinophil# 0.06 X10^3/uL; Eosinophils% 1.2 % (0-5); Hematocrit 28.8 % (40-54); Hemoglobin 8.8 g/dL (13.0-16.5); Lymphocyte # 0.93 X10^3/ul (4.0); Lymphocyte % 18.8 % (19-41); Mean Corp Hgb Conc 30.6 g/dL (32-36); Mean Corpuscular Volume 104.7 fL (80-94); Mean Platelet Vol. 11.4 fl (6.2-12.0); Monocyte# 0.41 X10^3/uL; Monocyte% 8.3 % (0-10); NRBC Flagged by Analyzer 0 % (0-5); Neutrophil # 3.52 X10^3/uL (2.7-7.7); Neutrophil % 71.1 % (47-70); Platelet Count 152 K/mm3 (150-450); RBC Distribution Width CV 13.8 % (11.6-14.6); RBC Distribution Width SD 52.6 fl (35.1-43.9); Red Blood Count 2.75 M/mm3 (4.6-6.2)
[2019-05-28 06:32] LABS: Anion Gap 1 (5-15); BUN 50 mg/dL (7-18); BUN/Creat Ratio 37.3 RATIO (10-20); Calcium,Total 8.9 mg/dL (8.5-10.1); Chloride 98 mmol/L (98-107); Creatinine, Serum 1.34 mg/dL (0.70-1.30); EST Glomerular Filtration Rate 56 mL/min (>60); Est Glom Filt Rate - Afr Amer 68 mL/min (>60); Estimated Creatinine Clearance 52.76 ml/min; Glucose 97 mg/dL (74-106); Potassium 4.7 mmol/L (3.5-5.1); Sodium Level 140 mmol/L (136-145)
[2019-05-28 06:37] VITALS: O2SAT 94
[2019-05-28] MEDS: Furosemide 80 MG Tablet PO ×2 (09:16→17:40)
[2019-05-28] MEDS: Tuberculin,Purif.prot.deriv. 50 TU/ML Vial 5 ML ID (10:24)
[2019-05-28 10:30] VITALS: PULSE 97; RESP 18; O2SAT 97
--- NOTE | 2019-05-28 12:42 | CASEMGMT ---
Social Work Reviewed and agreed with social work programming intern documentation on this date. Glenys Tsang, STAMPS OR COINS SALESPERSON CHIPPER FEEDER
[2019-05-28 15:16] VITALS: BP 109/65; PULSE 97; RESP 20; TEMP 36.7; O2SAT 99
--- NOTE | 2019-05-28 15:21 | CASEMGMT ---
Social Work Spoke with patient and S.O. about patient's goals while in unit and for DC. Pt expressed he wants to walk more to gain strength in his legs. Educated that therapy can use other exercises in addition to walking to improve strength - pt agreeable. Pt stated he has chemo treatments scheduled twice next week. Offered for pt to DC home prior to that appt, but could not receive tx while in TCU. Pt and S.O. understood and chose to continue with therapy and post-pone tx. S.O. to call and cancel for the next two weeks. Discussed Palliative Medicine again with pt to assist with symptom and pain management and keeping pt at home - pt interested and agreeable to referral. S.O. to be present for appt. Referral made. Will continue to follow. TAO Kincaid
[2019-05-28 17:40] VITALS: BP 109/65; PULSE 97
[2019-05-28] MEDS: DOXEPIN HCL 50 MG CAPSULE PO (19:45)
--- NOTE | 2019-05-29 02:40 | NURSING ---
Pt has been restless throughout the night states, I can't sleep doctor has increase doxepin to 50mg at hs. Pt has been in recliner and back to the bed during this shift. Pt keeps trying to self transfer from bed to bathroom by himself this nurse educated pt on the importance of using his call light for him states understanding but continues to get out of bed by himself. Rn aware.
[2019-05-29 03:46] VITALS: BP 126/81; PULSE 107
[2019-05-29] MEDS: Senna/Docusate Sodium 1 Tablet PO ×2 (03:46→17:12)
[2019-05-29] MEDS: Metoprolol Tartrate 50 MG Tablet PO ×2 (03:46→17:11)
[2019-05-29] MEDS: Enoxaparin 40 MG/0.4 ML Syringe SC (03:48)
[2019-05-29 03:50] VITALS: PULSE 107; RESP 18; O2SAT 98
--- NOTE | 2019-05-29 08:50 | PCA ---
Pt is non compliant with personal alarm in room, patient keeps unlocking recliner chair and trying to get up with it unlocked, told pt that he needs to ring and ask for assistance when he wants to get up an do something for his safety. pt agrees at that time but, does not comply
--- NOTE | 2019-05-29 13:39 | NURSING ---
Addendum entered by Ann Marie Peña 05/29/19 14:50: Dr Alejo adjusted meds, d/c'd doxepin changed to ambien, lasix times changed so not to keep pt up all night voiding. Addendum entered by Ann Marie Peña 05/29/19 13:47: notified Juany, girlfriend regarding appt with Dr Crowder today at 2p, she stated that it was cancelled because no transportation available and rescheduled for May. see d/c follow up appt intervention. Original Note: pt with increased confusion today, thinks he's going home. dr alejo aware, no new orders. pt getting up w/out assist & alarm sounding frequently. 1:1 emotional support.
[2019-05-29] MEDS: Furosemide 80 MG Tablet PO (13:43)
[2019-05-29 15:49] VITALS: BP 114/57; PULSE 104; RESP 20; TEMP 36.7; O2SAT 94
[2019-05-29 17:11] VITALS: BP 114/57; PULSE 104
[2019-05-29] MEDS: Zolpidem Tartrate 5 MG Tablet PO (20:52)
--- NOTE | 2019-05-29 21:58 | NURSING ---
Pt getting up transferring himself in his room without assistance. Educated pt on the importance of using the call light when needing help. Pt has call light within reach and he demonstrate how to us it. 1:1 and redirecting was provided.
[2019-05-30] MEDS: Enoxaparin 40 MG/0.4 ML Syringe SC (06:10)
[2019-05-30] MEDS: Furosemide 80 MG Tablet PO ×2 (06:11→14:13)
[2019-05-30] MEDS: Senna/Docusate Sodium 1 Tablet PO ×2 (06:11→17:48)
[2019-05-30 06:16] VITALS: BP 125/75; PULSE 105
[2019-05-30] MEDS: Metoprolol Tartrate 50 MG Tablet PO ×2 (06:16→17:47)
[2019-05-30 08:39] VITALS: BP 115/64; PULSE 72; RESP 18; O2SAT 98
[2019-05-30 14:40] VITALS: BP 95/61; PULSE 70; RESP 16; TEMP 36.5; O2SAT 99
[2019-05-30 15:44] VITALS: PULSE 104; RESP 18; O2SAT 98
[2019-05-30 17:47] VITALS: BP 110/60; PULSE 70
[2019-05-30 17:49] VITALS: BP 110/60; PULSE 70
[2019-05-30] MEDS: Zolpidem Tartrate 5 MG Tablet PO (20:49)
--- NOTE | 2019-05-31 01:44 | NURSING ---
Addendum entered by Melba Rivera 05/31/19 05:06: Patient found in room, oxygen off. Oxygen Saturation at 79%. Oxygen reapplied via nasal cannula. Oxygen increased to 95%. Patient has been more confused than normal since HS dose of Ambien. Unsteady gait as well. Found taking clothes off several times. Patient also hallucinating. KYM Reynolds notified. Original Note: Patient alarm sounding. Patient found naked in room ambulating. Patient drowsy and hard to understand. Gait unsteady. Patient redirected. Educated the use of call light. Patient verbalized understanding. 1:1 given several times.
[2019-05-31 05:31] VITALS: BP 127/70; PULSE 106
[2019-05-31] MEDS: Furosemide 80 MG Tablet PO ×2 (05:31→13:15)
[2019-05-31] MEDS: Metoprolol Tartrate 50 MG Tablet PO (05:31)
[2019-05-31] MEDS: Senna/Docusate Sodium 1 Tablet PO (05:31)
[2019-05-31] MEDS: Enoxaparin 40 MG/0.4 ML Syringe SC (05:32)
[2019-05-31 14:17] VITALS: BP 95/60; PULSE 90; RESP 17; TEMP 36.6; O2SAT 98
[2019-05-31 17:35] VITALS: BP 98/57
[2019-05-31 22:00] VITALS: PULSE 112; O2SAT 97
[2019-06-01 05:27] VITALS: BP 126/91; PULSE 109
[2019-06-01] MEDS: Metoprolol Tartrate 50 MG Tablet PO ×2 (05:27→17:10)
[2019-06-01] MEDS: Furosemide 80 MG Tablet PO ×2 (05:27→13:03)
[2019-06-01] MEDS: Senna/Docusate Sodium 1 Tablet PO ×2 (05:27→17:10)
[2019-06-01] MEDS: Enoxaparin 40 MG/0.4 ML Syringe SC (05:28)
[2019-06-01 07:20] VITALS: O2SAT 98
--- NOTE | 2019-06-01 11:55 | NURSING ---
Tamika from Dr Crowder's office called because pt girlfriend Juany concerned regarding pt not getting his chemo treatments. Glenys notified and will discuss plans with pt and Juany again. see BRANDIN Veronica previous note about discussing this with both of them.
[2019-06-01 14:21] VITALS: BP 114/75; PULSE 85; RESP 18; TEMP 36.4; O2SAT 91
--- NOTE | 2019-06-01 16:22 | CASEMGMT ---
Social Work Met with patient and S.O. to reeducate to patient having chemo tx on hold while in TCU. Pt can choose to DC prior to continue with those tx, but previously pt stated he was not ready. Pt again stated he would like to complete more therapy prior to DC. Palliative met with pt and S.O. and educated to services. Pt very interested in program, but would like to sign papers when there is a DC date. Pt and S.O. indicated understanding. Will continue to follow. Glenys Tsang, PHILANTHROPY OFFICER UNDERGROUND FOREMAN
--- NOTE | 2019-06-01 16:25 | CASEMGMT ---
Social Work Reviewed and agreed with social work supply chain intern documentation on this date. Glenys Tsang, NIGHT COORDINATOR ENVIRONMENTAL FIELD TECHNICIAN
[2019-06-01 17:10] VITALS: BP 114/75; PULSE 85
[2019-06-01 19:59] VITALS: PULSE 96; O2SAT 91
--- NOTE | 2019-06-01 20:11 | NURSING ---
Pt noted to have money folded up on bedside table. Pt A&Ox4. Educated on importance of having someone take it home or have staff lock it up. Pt denied stating ill just put it back in my pocket. Educated pt again but pt denied. 46$ witnessed by patient, this nurse and TUNNEL HEADING SUPERVISOR. Pt put money in clear bag and stuck in shirt pocket. CARLTON wraps applied to bilateral lower. Lung sounds diminished. O2 4L. Pt denied further needs. Resting in bed with call light in reach. PA on.
[2019-06-01] MEDS: MELATONIN 10 MG TABLET PO (20:15)
[2019-06-02] MEDS: Furosemide 80 MG Tablet PO ×2 (05:40→13:17)
[2019-06-02] MEDS: Senna/Docusate Sodium 1 Tablet PO ×2 (05:40→17:50)
[2019-06-02 05:41] VITALS: BP 128/71; PULSE 93
[2019-06-02] MEDS: Metoprolol Tartrate 50 MG Tablet PO ×2 (05:41→17:50)
[2019-06-02] MEDS: Enoxaparin 40 MG/0.4 ML Syringe SC (05:41)
[2019-06-02 09:22] VITALS: PULSE 79; RESP 18; O2SAT 94
[2019-06-02 13:51] VITALS: BP 116/63; PULSE 75; RESP 16; TEMP 35.9; O2SAT 93
--- NOTE | 2019-06-02 14:14 | CPS ---
critical value called to KYM Jesus.
[2019-06-02 14:16] LABS: Base Excess 20 mmol/L (-2 to +2); Bicarbonate 45.8 mmol/L (22-26); Blood Gas Specimen Type ART; O2 Delivery Device Nasal Can; PO2 109 mmHG (75-100); SITE L Radial; SO2 98 % (95-99); Time Given 1400; Total Carbon Dioxide 48 mmol/L; pCO2 79.3 mmHg (35-45); pH 7.37 (7.35-7.45)
--- NOTE | 2019-06-02 17:26 | CASEMGMT ---
Social Work Reviewed and agreed with social work auditor internal documentation on this date. Glenys Tsang, COMMUNICATIONS SYSTEMS ENGINEER DOOR ATTENDANT
[2019-06-02 17:50] VITALS: PULSE 75
[2019-06-02] MEDS: MELATONIN 10 MG TABLET PO (21:30)
[2019-06-03 05:01] VITALS: BP 104/81; PULSE 87
[2019-06-03] MEDS: Metoprolol Tartrate 50 MG Tablet PO ×2 (05:01→18:03)
[2019-06-03] MEDS: Enoxaparin 40 MG/0.4 ML Syringe SC (05:01)
[2019-06-03] MEDS: Furosemide 80 MG Tablet PO ×2 (05:01→12:46)
[2019-06-03] MEDS: Senna/Docusate Sodium 1 Tablet PO (05:02)
[2019-06-03 08:30] VITALS: O2SAT 96
[2019-06-03 08:52] VITALS: PULSE 80
[2019-06-03 14:23] VITALS: BP 96/52; PULSE 73; RESP 18; TEMP 36.7; O2SAT 98
--- NOTE | 2019-06-03 15:41 | CASEMGMT ---
Social Work Met with pt about DC plans. Pt to DC 06/08 home with significant other. Pt requesting OP therapy and was given options, pt request SWI to ask S.O. No DME needs. Elba Dawson, social work applications intern Glenys Tsang, AIRPLANE FLIGHT ATTENDANT TRAUMA PROGRAM MANAGER
--- NOTE | 2019-06-03 17:04 | CASEMGMT ---
Social Work Reviewed and agreed with social work international coordinator documentation on this date. Glenys Tsang, WHIPPER BEATER SHIRT MAKER
[2019-06-03 18:03] VITALS: PULSE 104
--- NOTE | 2019-06-03 19:22 | PCM.DC ---
- Discharge Diagnoses Current Active Problems: Current Active and Chronic Problems (Last Reviewed 04/27/19 @ 09:56 by HOLLY Kay) Hyperkalemia (Acute) Hypokalemia (Acute) Lymphedema (Chronic) Insomnia (Chronic) Cognitive impairment (Acute) You will use the following diet at home:: Regular, Fluid restricted (specify 2000 mls, 1500 mls) - 1500 mls Your food should be the consistency of: Regular Your liquids should be the consistency of: Regular/Thin Discharge Activity: Return to Normal Activity, May Shower, Use Walker Weight Bearing Status: Weight bearing as tolerated Call your doctor if you observe: Fever of 101 or Higher, Inability to urinate, Inability to have a bowel movement, Shortness of breath, Chest pain, Uncontrolled pain Allergies/Adverse Reactions: Allergies No Known Allergies Allergy (Verified 05/14/19 15:21) Medications to take at Discharge Acetaminophen [Tylenol Tablet] 650 mg PO Q4H PRN PRN tab 05/20/19 Furosemide [Lasix] 80 mg PO BID@1000,1800 #60 tab 06/03/19 Melatonin 10 mg PO QHS tablet 06/03/19 Metoprolol Tartrate [Lopressor (beta ivelisse)] 50 mg PO BID #60 tab 06/03/19 The following prescriptions were given: Furosemide [Lasix] 80 mg PO BID@1000,1800 #60 tab Transmission Status: Pending to [facility] [place] Metoprolol Tartrate [Lopressor (beta ivelisse)] 50 mg PO BID #60 tab Transmission Status: Pending to [facility] [place] Primary Care Physician: Gerry Pate DO [Primary Care Provider] - Please follow up with your Primary Care Physician in: 1 week. Test Results: Test results from this visit will be discussed in further detail at your follow-up appointment, if applicable. Please Follow Up With: Dr. Vilchis When: 1 week. Please Follow Up With: Dr. Vilchis Proposed Discharge Date: 06/09/19
--- NOTE | 2019-06-03 19:24 | PCM.DC.SUM ---
Discharge Date and Diagnosis - Problem List Patient Problems: Active and Suspected Problems (Last Reviewed 04/27/19 @ 09:56 by HOLLY Kay) Hyperkalemia (Acute) Hypokalemia (Acute) Cognitive impairment (Acute) Date of Admission: 05/20/19 Date of Discharge: 06/09/19 - Primary Discharge Diagnosis Active and Suspected Problems (Last Reviewed 04/27/19 @ 09:56 by HOLLY Kay) Hyperkalemia (Acute) Hypokalemia (Acute) Cognitive impairment (Acute) - Secondary Discharge Diagnosis Chronic Problems (Last Reviewed 04/27/19 @ 09:56 by HOLLY Kay) Lymphedema (Chronic) Insomnia (Chronic) JOSE LUIS (obstructive sleep apnea) (Chronic) Hypertension (Chronic) Hypothyroidism (Chronic) Plasma cell dyscrasia (Chronic) Nephrotic syndrome (Chronic) Amyloidosis (Chronic) Diastolic CHF (Chronic) Proteinuria (Chronic) CHF (congestive heart failure) (Chronic) Essential (primary) hypertension (Chronic) Hospital Course and Treatment Imaging Results: 05/20/19 14:04 Diet: Cardiac/Low Cholesterol Dietary Modifications:: Fluid Restricted Diet Diet Comments: 1500 mL fluid restriction Labs (Last 48 Hours) 06/02/19 14:01 Specimen Type ART Sample Site L Radial pH 7.37 Bicarbonate Actual 45.8 H POC Total CO2 48 Base Excess 20 H O2 Saturation 98 ABG pCO2 79.3 H* ABG pO2 109 H Danielito Test NA O2 Delivery Device Nasal Can Liter Flow 3.0 Blood Gas Notified Whom HOSP Blood Gas Notified Time 1400 Operations: None Procedures: None Summary of Care Provided: The patient is a 68 year old Male with below past medical history hospitalized for acute on chronic hypoxic hypercapnic respiratory failure secondary to bilateral pleural effusions fro acute on chronic diastolic congestive heart failure complicated by amyloidosis, hypokalemia, admitted to TCU with debility, here for rehabilitation, strengthening, prior to discharge home with significant other. Discharge home with significant other, outpatient PT. Patient Problems: Active and Suspected Problems (Last Reviewed 04/27/19 @ 09:56 by HOLLY Kay) Hyperkalemia (Acute) Hypokalemia (Acute) Cognitive impairment (Acute) - Physical Exam Vitals/I&O's: Vital Signs Temp Pulse Resp BP Pulse Ox 98.0 F 104 H 18 96/52 L 98 06/03/19 14:23 06/03/19 18:03 06/03/19 14:23 06/03/19 14:23 06/03/19 14:23 Oxygen Flow Rate (L/min) 3 Oxygen Delivery Method Room Air Weight: 92.034 kg Body Mass Index (BMI) 29.2 Intake and Output for Last 24 Hours 06/01/19 06/02/19 06/03/19 23:59 23:59 23:59 Intake Total 1130 / 1130 1300 / 1300 760 / 760 Balance 1130 / 1130 1300 / 1300 760 / 760 Current Medications Acetaminophen (Tylenol) 650 mg PO Q4H PRN PRN PRN Reason: Pain Score 1-10/10 or Fever Last Admin: 05/23/19 10:17 Dose: 650 mg Documented by: Bisacodyl (Dulcolax) 10 mg PO DAILY PRN PRN Reason: Constipation Enoxaparin Sodium (Lovenox) 40 mg SC DAILY@0600 [facility] Last Admin: 06/03/19 05:01 Dose: 40 mg Documented by: Furosemide (Lasix) 80 mg PO BID@0600,1300 [facility] Last Admin: 06/03/19 12:46 Dose: 80 mg Documented by: Heparin Sodium (Beef Lung) () 50 units IV UD PRN PRN Reason: Port-a-Cath (VAD)Heparin Flush Last Admin: 05/23/19 03:59 Dose: 50 units Documented by: Melatonin (Melatonin) 10 mg PO QHS [facility] Last Admin: 06/02/19 21:30 Dose: 10 mg Documented by: Metoprolol Tartrate (Lopressor (Beta Zak)) 50 mg PO BID [facility] Last Admin: 06/03/19 18:03 Dose: 50 mg Documented by: Polyethylene Glycol (Miralax) 17 gm PO DAILY [facility] Last Admin: 06/03/19 05:01 Dose: Not Given Documented by: Senna/Docusate Sodium (Senokot-S, Lucita-Colace) 1 tablet PO BID [facility] Last Admin: 06/03/19 17:52 Dose: Not Given Documented by: Sodium Chloride () 10 - 40 ml IV UD PRN PRN Reason: Port-a-Cath (VAD) Flush Last Admin: 05/23/19 03:59 Dose: 20 ml Documented by: Sodium Chloride (0.9% Nacl (Sterile) Posiflush) 10 - 40 ml IV UD PRN PRN Reason: Port access or dressing change Discharge Diet: 6 Cup Fluid Restriction Discharge Activity: Return to Normal Activity, May Shower, Use Walker Weight Bearing Status: Weight bearing as tolerated Call your doctor if you observe: Fever of 101 or Higher, Inability to urinate, Inability to have a bowel movement, Shortness of breath, Chest pain, Uncontrolled pain Home Medications: Medications to take at Discharge Acetaminophen [Tylenol Tablet] 650 mg PO Q4H PRN PRN tab 05/20/19 Furosemide [Lasix] 80 mg PO BID@1000,1800 #60 tab 06/03/19 Melatonin 10 mg PO QHS tablet 06/03/19 Metoprolol Tartrate [Lopressor (beta zak)] 50 mg PO BID #60 tab 06/03/19 Following Prescrptions Were Given to Patient: Furosemide [Lasix] 80 mg PO BID@1000,1800 #60 tab Transmission Status: Pending to [facility] - [place] Metoprolol Tartrate [Lopressor (beta zak)] 50 mg PO BID #60 tab Transmission Status: Pending to [facility] [place] Primary Care Physician: Gerry Pate DO [Primary Care Provider] - Please follow up with your Primary Care Physician in: 1 week. Please Follow Up With: Dr. Vilchis When: 1 week. Please Follow Up With: Dr. Vilchis Disposition: Home Minutes spent on discharge:: 30 Patient Condition:: Stable Medical Necessity - Tobacco Use Smoking Status: Former smoker Tobacco Use: Non-smoker Meaningful Use Info Meaningful Use Diagnoses (Choose all that apply): None applicable
[2019-06-03] MEDS: MELATONIN 10 MG TABLET PO (20:27)
[2019-06-03] MEDS: 0.9% Saline Lock 10 ML Syringe IV (21:45)
--- NOTE | 2019-06-03 22:07 | NURSING ---
2145: port accessed with sterile technique per pt's request for bloodwork due in AM. pt tolerated well. blood return noted and flushing without difficulty.
[2019-06-04 04:07] LABS: Anion Gap 0 (5-15); BUN 42 mg/dL (7-18); BUN/Creat Ratio 30.9 RATIO (10-20); Calcium,Total 8.3 mg/dL (8.5-10.1); Chloride 95 mmol/L (98-107); Creatinine, Serum 1.36 mg/dL (0.70-1.30); EST Glomerular Filtration Rate 55 mL/min (>60); Est Glom Filt Rate - Afr Amer 67 mL/min (>60); Estimated Creatinine Clearance 51.99 ml/min; Glucose 98 mg/dL (74-106); Potassium 4.3 mmol/L (3.5-5.1); Sodium Level 139 mmol/L (136-145)
[2019-06-04 04:17] LABS: Absolute Lymphocyte Count 0.93 X10^3/uL (0.83-4.51); Absolute Neutrophil Count 3.6 X10^3/uL (2.0-7.7); Basophil# 0.02 X10^3/uL; Basophil% 0.4 % (0-1); Eosinophil# 0.05 X10^3/uL; Lymphocyte # 0.93 X10^3/ul (4.0); Lymphocyte % 18.4 % (19-41); Mean Corpuscular Hgb 31.7 pg (27.0-32.0); Mean Corpuscular Volume 102.1 fL (80-94); Mean Platelet Vol. 11.3 fl (6.2-12.0); Monocyte% 7.9 % (0-10); NRBC Flagged by Analyzer 0 % (0-5); Neutrophil # 3.64 X10^3/uL (2.7-7.7); Neutrophil % 72.1 % (47-70); Platelet Count 128 K/mm3 (150-450); RBC Distribution Width CV 13.3 % (11.6-14.6); RBC Distribution Width SD 50.1 fl (35.1-43.9); Red Blood Count 2.84 M/mm3 (4.6-6.2); White Blood Count 5.1 K/mm3 (4.4-11.0)
[2019-06-04] MEDS: 0.9% Saline Lock 10 ML Syringe IV (05:11)
[2019-06-04] MEDS: Enoxaparin 40 MG/0.4 ML Syringe SC (05:14)
[2019-06-04] MEDS: Senna/Docusate Sodium 1 Tablet PO (05:14)
[2019-06-04] MEDS: Furosemide 80 MG Tablet PO ×2 (05:14→12:32)
[2019-06-04 05:17] VITALS: BP 136/59; PULSE 99
[2019-06-04] MEDS: Metoprolol Tartrate 50 MG Tablet PO (05:17)
[2019-06-04 06:50] VITALS: O2SAT 96
[2019-06-04 13:34] VITALS: BP 95/59; PULSE 85; RESP 18; TEMP 36.3; O2SAT 97
[2019-06-04 17:31] VITALS: BP 83/56; PULSE 72
[2019-06-04] MEDS: MELATONIN 10 MG TABLET PO (19:41)
[2019-06-04 23:30] VITALS: BP 112/77; PULSE 91
[2019-06-05 04:40] VITALS: BP 129/81; PULSE 97
[2019-06-05] MEDS: Furosemide 80 MG Tablet PO ×2 (04:40→13:03)
[2019-06-05] MEDS: Metoprolol Tartrate 50 MG Tablet PO ×2 (04:40→17:17)
[2019-06-05] MEDS: Enoxaparin 40 MG/0.4 ML Syringe SC (04:41)
[2019-06-05 11:00] VITALS: PULSE 78; RESP 18; O2SAT 98
[2019-06-05 13:55] VITALS: BP 114/66; PULSE 75; RESP 18; TEMP 36.3; O2SAT 96
[2019-06-05 17:17] VITALS: PULSE 75
[2019-06-05] MEDS: MELATONIN 10 MG TABLET PO (20:11)
[2019-06-06 04:47] VITALS: BP 102/64; PULSE 82
[2019-06-06] MEDS: Metoprolol Tartrate 50 MG Tablet PO ×2 (04:47→18:13)
[2019-06-06] MEDS: Enoxaparin 40 MG/0.4 ML Syringe SC (04:47)
[2019-06-06] MEDS: Furosemide 80 MG Tablet PO ×2 (04:47→14:05)
[2019-06-06 08:05] VITALS: O2SAT 98
[2019-06-06 10:00] VITALS: PULSE 80; RESP 18; O2SAT 98
[2019-06-06 13:37] VITALS: BP 96/58; PULSE 88; RESP 18; TEMP 36.6; O2SAT 92
[2019-06-06 18:13] VITALS: BP 110/66; PULSE 98
[2019-06-06] MEDS: MELATONIN 10 MG TABLET PO (20:10)
[2019-06-07 05:29] VITALS: BP 117/62; PULSE 92
[2019-06-07] MEDS: Furosemide 80 MG Tablet PO ×2 (05:29→13:36)
[2019-06-07] MEDS: Metoprolol Tartrate 50 MG Tablet PO ×2 (05:29→17:14)
[2019-06-07] MEDS: Enoxaparin 40 MG/0.4 ML Syringe SC (05:32)
[2019-06-07 13:34] VITALS: BP 100/51; PULSE 83; RESP 16; TEMP 37; O2SAT 98
[2019-06-07 17:14] VITALS: BP 107/63; PULSE 88
[2019-06-07] MEDS: MELATONIN 10 MG TABLET PO (20:53)
[2019-06-07 20:55] VITALS: PULSE 86; RESP 18; O2SAT 99
[2019-06-08 04:28] VITALS: BP 115/74; PULSE 92
[2019-06-08] MEDS: Metoprolol Tartrate 50 MG Tablet PO ×2 (04:28→17:21)
[2019-06-08] MEDS: Furosemide 80 MG Tablet PO ×2 (04:28→12:55)
[2019-06-08] MEDS: Enoxaparin 40 MG/0.4 ML Syringe SC (04:29)
[2019-06-08 07:23] VITALS: O2SAT 97
[2019-06-08 09:23] VITALS: PULSE 90; RESP 18; O2SAT 95
--- NOTE | 2019-06-08 09:41 | NURSING ---
Addendum entered by Ann Marie Peña 06/08/19 17:37: hytone cream BID ordered. Original Note: During assessment this morning a rash noted on pt Bilateral feet that is warm to touch. Pt denies pain but states it does itch at times. RN aware
[2019-06-08 13:55] VITALS: BP 118/71; PULSE 87; RESP 14; TEMP 36.6; O2SAT 96
[2019-06-08 17:21] VITALS: PULSE 87
[2019-06-08] MEDS: Senna/Docusate Sodium 1 Tablet PO (17:21)
[2019-06-08] MEDS: MELATONIN 10 MG TABLET PO (20:27)
[2019-06-09 04:57] VITALS: BP 130/75; PULSE 95
[2019-06-09] MEDS: Metoprolol Tartrate 50 MG Tablet PO (04:57)
[2019-06-09] MEDS: Furosemide 80 MG Tablet PO (04:57)
[2019-06-09] MEDS: Enoxaparin 40 MG/0.4 ML Syringe SC (04:58)
[2019-06-09 08:00] VITALS: PULSE 85; RESP 18; O2SAT 92
--- NOTE | 2019-06-09 10:19 | NURSING ---
AID CAME TO THIS NURSE AND STATED THAT PT SAID HE WAS SHORT OF BREATH. AID STATED SHE NOTICED O2 TUBING WAS CUT. THIS NURSE WENT TO PT AND ASKED PT IF HE WAS SHORT OF BREATH PT STATED YES THIS NURSE AND AID REPLACED 02 TUBING AND THIS NURSE ASKED PT IF HE HAD A POCKET KNIFE. PT STATED YES. ASKED PT IF HE CUT HIS O2 TUBING PT STATED HE DONT REMEMBER. THIS NURSE ASKED PT TO LEAVE HIS KNIFE IN HIS PANTS POCKET TILL HE LEFT TODAY OR THIS NURSE WAS GOING TO HAVE TO LOCK IT UP. PT STATED HE WOULD LEAVE IT IN HIS POCKET. THIS NURSE EXPLAINED TO PT THAT IS WHY HE WAS SHORT OF BREATH. ASKED PT IF HE FELT BETTER AND COULD BREATH.PT STATED YES. REPORTED TO KYM AQUINO
--- NOTE | 2019-06-09 12:40 | NURSING ---
Pt son who was transporting home for discharge did not bring oxygen for pt to wear. Pt and son states they live couple miles down road and he will be fine.
== END 2019-06-09 12:45 | disposition home or self-care (01) | DRG 292 ==
PROVIDERS: Admitting Provider Family Medicine Geriatric Medicine; PCP Student in an Organized Health Care Education/Training Program; Referring Provider Family Medicine Geriatric Medicine; Visit Provider Family Medicine Geriatric Medicine
DX: I11.0 Hypertensive heart disease with heart failure (principal); E85.9 Amyloidosis, unspecified; J96.12 Chronic respiratory failure with hypercapnia; J96.11 Chronic respiratory failure with hypoxia; E87.6 Hypokalemia; I50.32 Chronic diastolic (congestive) heart failure; I89.0 Lymphedema, not elsewhere classified; G47.33 Obstructive sleep apnea (adult) (pediatric); Z87.891 Personal history of nicotine dependence; R41.89 Other symptoms and signs involving cognitive functions and awareness; D75.89 Other specified diseases of blood and blood-forming organs
CPT/HCPCS: 36415; 36600; 80048; 80053; 82803; 83880; 85025; 97110; 97116; 97162; 97166; 97530; 97535; 97802; A4216

== ENCOUNTER 2019-06-14 18:17 | Inpatient (IN) | payer MEDICARE, OTHER, SELFPAY ==
[2019-06-14] VITALS (18 sets, daily range): BP systolic 94–197; BP diastolic 59–145; PULSE 76–93; RESP 12–30; TEMP 36–36.2; O2SAT 79–100; BMI 31.6; BMI 30.2; BMI 30.3
--- NOTE | 2019-06-14 18:36 | EKG12_ITS ---
Test Reason : CP Blood Pressure : / mmHG Vent. Rate : 081 BPM Atrial Rate : 081 BPM P-R Int : 146 ms QRS Dur : 084 ms QT Int : 406 ms P-R-T Axes : 037 -16 162 degrees QTc Int : 471 ms Normal sinus rhythm Possible Left atrial enlargement Low voltage QRS Cannot rule out Anteroseptal infarct , age undetermined T wave abnormality, consider lateral ischemia Abnormal ECG Confirmed by MANUEL BAILEY ([id number]), associate editor KIKE ELLIS ([id number]) on 06/18/2019 9:18:13 AM Referred By: GREGORY Confirmed By:MANUEL BAILEY
--- NOTE | 2019-06-14 18:37 | ED.VIS.GEN ---
History of Present Illness Chief Complaint: Shortness of Breath Informant: Patient, Family, Professor Of Religious Studies Narrative: Patient reportedly was discharged from TCU on June 08. He had been admitted into the hospital and treated for acute on chronic hypoxemic and hypercarbic respiratory failure, obstructive sleep apnea, and systemic amyloidosis with cardiac and renal involvement. He underwent thoracentesis and was noted to have a pericardial effusion without tamponade. states that she does not know why he was admitted into the hospital so most of the history I gleaned from looking at his chart. He has reportedly been taking 80 of Lasix twice a day. He at baseline wears a couple liters of nasal cannula oxygen. states that his legs are not significantly swollen from when he was discharged. Past Medical History - Allergies and Home Meds Allergies/Adverse Reactions: Allergies No Known Allergies Allergy (Verified 06/14/19 18:21) Primary Care Physician: Gerry Pate DO [Primary Care Provider] - Surgical History: - - ORIF left foot. Smoking Status: Former smoker - Family History Maternal Family History: Reports: - - Mother patient unsure of the cause Paternal Family History: Reports: - - Patient not sure of father's cause of Review of Systems ROS: Unable to Obtain Physical Exam Vital Signs/Narrative: Vital Signs Temp Pulse Resp BP Pulse Ox 06/14/19 18:18 96.8 F L 86 30 H 96/61 79 Inital Vital Signs reviewed: Yes General: Well nourished, Well developed, Acute Distress - Patient is in acute respiratory distress. Head: Normocephalic, Atraumatic Eyes: Perrl, EOMI ENT: Moist mucous membranes, No rhinorrhea Neck: Supple, Nontender Cardiovascular: Regular rate, Regular rhythm, No murmurs Respiratory: Decreased Air Movement, - - Patient is tachypneic with diminished lung sounds. Abdomen: Soft, Nontender, Nondistended, Normal bowel sounds Back: Nontender, Normal Inspection Extremities: Nontender, Edema - 2+ pitting edema of the lower extremities bilaterally Skin: No rash, - - Patient has slight mottling of his abdomen. Neurological: Alert, Cranial nerves II-XII grossly intact, Normal Strength, Normal Sensation, Lethargic Diagnostic/Tx/Re-eval - EKG Initial EKG Interpretation: Sinus Rhythm - EKG is a sinus rhythm at a rate of 81. - Medical Decision Making Patient was placed on BiPAP. It appears that he is having exacerbation of CHF as demonstrated by his chest x-ray the reaccumulation of pleural effusion and the lower extremity swelling. Supported by a beta natruretic peptide of 1300. Slight bump in his troponin. There is no ischemic changes on his EKG. His blood gas shows a pH of 7.26 with a PCO2 of 119. Bicarb is 54.3. Patient received Bumex. Plan will be admission into the hospital to the intensive care unit. - Critical Care Time Critical care time (excluding procedures): 30-74 minutes - 35 minutes ED Disposition - Plan for ED Patient: Diagnosis: CHF exacerbation, Respiratory failure, Hypercarbia, Pleural effusion Referrals: Gerry Pate DO [Primary Care Provider] -
--- NOTE | 2019-06-14 18:39 | RAD_ITS ---
STUDY: X-RAY CHEST REASON FOR EXAM: Male, 68 years old. Shortness of breath TECHNIQUE: Single frontal view of the chest. COMPARISON: May 18, 2019 FINDINGS: There are bilateral pleural effusions, left greater than right. There is a right sided central venous catheter in place terminating within the expected region of the superior vena cava. There is cardiomegaly. Normal mediastinum and reic. Normal visualized pulmonary arteries. Normal visualized aortic arch and descending thoracic aorta. There are diffuse degenerative changes of the visualized thoracic spine. There are degenerative changes of the right shoulder. There is a stable deformity of the right humeral head suggestive of an old injury. There is no demonstrated abnormality of the visualized soft tissue structures of the upper abdomen. RAD/Chest 1 View (Portable) IMPRESSION: Bilateral pleural effusions, right greater than left, cannot exclude associated bibasilar atelectasis and or pneumonia. Electronically Signed: Emily Dos Santos MD at 19:07 EDT Tel , Service support ,
[2019-06-14 18:52] LABS: Absolute Lymphocyte Count 0.92 X10^3/uL (0.83-4.51); Absolute Neutrophil Count 5.4 X10^3/uL (2.0-7.7); Basophil# 0.03 X10^3/uL; Basophil% 0.4 % (0-1); Eosinophil# 0.02 X10^3/uL; Eosinophils% 0.3 % (0-5); Hematocrit 36.1 % (40-54); Hemoglobin 10.5 g/dL (13.0-16.5); Lymphocyte # 0.92 X10^3/ul (4.0); Lymphocyte % 13.5 % (19-41); Mean Corp Hgb Conc 29.1 g/dL (32-36); Mean Corpuscular Hgb 31.5 pg (27.0-32.0); Mean Corpuscular Volume 108.4 fL (80-94); Monocyte% 7.3 % (0-10); NRBC Flagged by Analyzer 0 % (0-5); Neutrophil # 5.35 X10^3/uL (2.7-7.7); Neutrophil % 78.2 % (47-70); Platelet Count 156 K/mm3 (150-450); RBC Distribution Width CV 13.2 % (11.6-14.6); RBC Distribution Width SD 53.1 fl (35.1-43.9); Red Blood Count 3.33 M/mm3 (4.6-6.2); White Blood Count 6.8 K/mm3 (4.4-11.0)
[2019-06-14 19:01] LABS: International Normalized Ratio 1.1; Prothrombin Time (Protime)PT. 14.2 SECONDS (11.7-14.9)
[2019-06-14 19:02] LABS: Partial Thromboplast Time 29.5 Seconds (24.1-36.2)
[2019-06-14 19:13] LABS: Lactic Acid 0.7 mmol/L (0.4-1.9)
[2019-06-14 19:24] LABS: ALB/GLOB Ratio 0.7 RATIO (0.9-2.4); AST(SGOT) 13 U/L (15-37); Alanine Aminotransfer ALT/SGPT 20 U/L (16-61); Albumin, Serum 2.2 g/dL (3.2-5.0); Alkaline Phosphatase 112 U/L (45-117); BUN 36 mg/dL (7-18); BUN/Creat Ratio 26.1 RATIO (10-20); Calcium,Total 8.7 mg/dL (8.5-10.1); Carbon Dioxide > 45.0 mmol/L (21.0-32.0); Chloride 96 mmol/L (98-107); Creatinine, Serum 1.38 mg/dL (0.70-1.30); EST Glomerular Filtration Rate 54 mL/min (>60); Est Glom Filt Rate - Afr Amer 66 mL/min (>60); Estimated Creatinine Clearance 51.23 ml/min; Globulin 3.1 g/dL (2.2-4.2); Glucose 137 mg/dL (74-106); Lipase 152 U/L (73-393); Potassium 4.9 mmol/L (3.5-5.1); Protein, Total 5.3 g/dL (6.4-8.2); Sodium Level 144 mmol/L (136-145)
[2019-06-14] MEDS: Bumetanide 1 MG/4 ML Vial IV (19:38)
--- NOTE | 2019-06-14 19:59 | PCM.HP.STD ---
Problem List (1) Diastolic CHF, acute on chronic Status: Acute (2) Acute respiratory failure with hypoxia and hypercapnia Status: Acute (3) Bilateral pleural effusion Status: Acute (4) Cognitive impairment Status: Chronic (5) JOSE LUIS (obstructive sleep apnea) Status: Chronic (6) Hypertension Status: Chronic Qualifiers: Hypertension type: essential hypertension Qualified Code(s): I10 - Essential (primary) hypertension (7) Hypothyroidism Status: Chronic Qualifiers: Hypothyroidism type: unspecified Qualified Code(s): E03.9 - Hypothyroidism, unspecified (8) Plasma cell dyscrasia Status: Chronic (9) Amyloidosis Status: Chronic Qualifiers: Amyloidosis type: unspecified amyloidosis Qualified Code(s): E85.9 - Amyloidosis, unspecified (10) Essential (primary) hypertension Status: Chronic History of Present Illness Date of Admission: 06/14/19 Chief Complaint: Dyspnea The patient is a 68 y/o M w/ PMHx: Diastolic Chronic CHF, Chronic COPD Chronic Hypoxic and Hypercarbic Respiratory Failure (2L NC), HTN, HLD, JOSE LUIS, 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 Crowder/Seth, with history of recent admission with BL large pleural effusions, pericardial effusion without tamponade with acute CHF exacerbation with transition to TCU x 1 month with recent discharge ~ 5 days prior who now re-presents to the [facility] ED on 06/14/19 with recurrent worsening dyspnea, increased R>L recurrent pleural effusions, increased work of breathing and accessory muscle usage with increased BL LE edema, orthopnea, weight gain prompting ED presentation with increased fatigue, malaise without any recent fever or chills. Work-up in the ED included T 96.8, heart rate 86, BP initially 96/61, respiratory rate 30, initially 9% on room air with improvement to 100% on BiPAP repeat blood pressure 162/63, ABC with WBC 6.8, hemoglobin 10.5, platelet 156 without significant left shift, unremarkable coags, CMP with chloride 96,, dioxide greater than 45, BUN/creatinine 36/1.38, glucose 137, lactic acid 0.7, troponin 0 0.049, BNP 1321, lipase 152, chest x-ray with bilateral pleural effusions, right greater than left, unable to exclude associated bibasilar atelectasis or pneumonia, EKG was sinus rhythm with no acute evidence of ischemia. In the ED patient administered Nitro-Bid, Bumex 1 mg IV x1 as well as DuoNeb therapy. Past Medical History Past Medical History (Chronic Problems): Chronic Problems (Last Reviewed 04/27/19 @ 09:56 by Lavern Robles GENERAL CLAIMS AGENT-C) Lymphedema (Chronic) Insomnia (Chronic) Cognitive impairment (Chronic) JOSE LUIS (obstructive sleep apnea) (Chronic) Hypertension (Chronic) Hypothyroidism (Chronic) Plasma cell dyscrasia (Chronic) Nephrotic syndrome (Chronic) Amyloidosis (Chronic) Diastolic CHF (Chronic) Proteinuria (Chronic) CHF (congestive heart failure) (Chronic) Essential (primary) hypertension (Chronic) Medical History: Medical History (Last Reviewed 04/27/19 @ 09:56 by Lavern Robles GENERAL CLAIMS AGENT-C) Pericardial effusion (Suspected) I31.3 Proteinuria (Chronic) R80.9 CHF (congestive heart failure) (Chronic) I50.9 Essential (primary) hypertension (Chronic) I10 Allergies No Known Allergies Allergy (Verified 06/14/19 18:21) Home Medications: Ambulatory Orders Medication Instructions Recorded Acetaminophen [Tylenol Tablet] 650 mg PO Q4H PRN PRN tab 05/20/19 Furosemide [Lasix] 80 mg PO BID@1000,1800 #60 tab 06/03/19 Melatonin 10 mg PO QHS tab 06/03/19 Metoprolol Tartrate [Lopressor 50 mg PO BID #60 tab 06/03/19 (beta ivelisse)] Surgical History: Surgical History (Last Reviewed 04/27/19 @ 09:56 by Lavern Robles NP-C) History of open reduction and internal fixation (ORIF) procedure Z98.890 left foot Surgical History: - - ORIF left foot. Psychiatric History: No pertinent psych hx Lives: Spouse/ Significant Other Smoking Status: Former smoker Tobacco Use: Non-smoker Alcohol: None Drugs: None - *Family History Maternal History Items: - - Patient denies any market maternal family history including heart disease, diabetes or cancer, she is and he is unsure of exact cause. Paternal History Items: - - Patient denies any market paternal family history including heart disease, diabetes or cancer, he is and he is unsure of exact cause. Review of Systems Constitutional: Reports: Anorexia, Malaise, Weakness, Fatigue. Denies: Chills, Fever, Weight Change HEENT: Denies: Head Aches, Sinus Congestion, Sinus Drainage Cardiovascular: Reports: Edema, Orthopnea. Denies: Chest Pain, Chest Pressure, Chest Tightness, Light Headedness, Palpitations, Syncope Respiratory: Reports: Shortness of Breath, Shortness of breath at rest, Shortness of breath upon exertion. Denies: Cough, Sputum production Gastrointestinal: Denies: Abdominal Pain, Nausea, Vomiting Genitourinary: Denies: Dysuria Musculoskeletal: Reports: Joint Pain. Denies: Joint Tenderness Skin: Denies: Rash, Wounds Neurological: Denies: Numbness, Tingling, Focal weakness Psychiatric: Denies: Anxiety, Depression, Homicidal Ideations, Suicidal Ideations Hematologic/ Lymphatic: Reports: Anemia, Easy Bruising, Easy Bleeding VTE Information - Inpt Only VTE Present on Admission: No VTE Mechan Device Prophylaxis: SCD's VTE Pharm Prophylaxis ordered?: Yes Subjective: Seated upright in ED bed, BiPAP in place, evidence of ongoing respiratory distress but notes he feels improved since initial presentation, fatigued, mildly lethargic. Objective: Physical Examination: General: awake, alert, oriented to self, place and recent events but fatigued appearance, BiPAP in place, ongoing distress but improved since initial ED presentation, fatigue. Skin: normal color, turgor, no icterus, cyanosis. HEENT: AT/NC, EOMI, PERRLA, mildly dry MM, BiPAP in place, no carotid bruits, + JVD. Lungs: Diminished breath sounds, greater bases, Rales bilateral bases, right greater than left, BiPAP in place, obvious distress although improved since initial ED presentation, no obvious rhonchi or wheezing. Heart: Tachycardic with regular rhythm; no gallop, rub audible. Abdomen: soft, obese, NTTP, ND, normal BS, no HSM. Extremities: no cyanosis, clubbing, significant pedal to mid thigh 2+ pitting edema. Neurological: patient awake, alert, oriented as noted; cognitive function improving but decreased from baseline intact; pupils equally reactive to light and accomodation; cranial nerves II-XII grossly normal, moving all 4 extremities, no focal deficits, strength severely globally Adenike secondary to acute presentation. Psychiatric: affect appears fatigued, mild distress still evident, no acute evidence of depressive or anxiety feelings. - Physical Exam Vitals/I&O's: Vital Signs Temp Pulse Resp BP Pulse Ox 96.8 F L 82 22 H 159/59 H 99 06/14/19 19:40 06/14/19 19:40 06/14/19 19:40 06/14/19 19:40 06/14/19 19:40 Oxygen Flow Rate (L/min) 15 Oxygen Delivery Method Bi-pap Weight: 214 lb 4.629 oz Body Mass Index (BMI) 31.6 Laboratory Results 06/14/19 18:20: WBC 6.8, RBC 3.33 L, Hgb 10.5 L, Hct 36.1 L, MCV 108.4 H, MCH 31.5, MCHC 29.1 L, RDW Std Deviation 53.1 H, RDW Coeff of Babita 13.2, Plt Count 156, MPV 11.0, Immature Gran % (Auto) 0.300, Neut % (Auto) 78.2 H, Lymph % (Auto) 13.5 L, Cole % (Auto) 7.3, Eos % (Auto) 0.3, Baso % (Auto) 0.4, Absolute Neuts (auto) 5.4, Absolute Lymphs (auto) 0.92, Nucleated RBC % 0 06/14/19 18:20: PT 14.2, INR 1.1, APTT 29.5 06/14/19 18:20: Sodium 144, Potassium 4.9, Chloride 96 L, Carbon Dioxide > 45.0 H*, Anion Gap TNP, BUN 36 H, Creatinine 1.38 H, Estim Creat Clear Calc 51.23, Est GFR (MDRD) Af Amer 66, Est GFR (MDRD) Non-Af 54 L, BUN/Creatinine Ratio 26.1 H, Glucose 137 H, Calcium 8.7, Total Bilirubin 0.20, AST 13 L, ALT 20, Alkaline Phosphatase 112, Troponin I 0.049 H, Total Protein 5.3 L, Albumin 2.2 L, Globulin 3.1, Albumin/Globulin Ratio 0.7 L, Lipase 152 06/14/19 18:20: Lactic Acid 0.7 06/14/19 18:20: B-Natriuretic Peptide 1321.0 H Assessment/Plan All Active Problems (Last Reviewed 04/27/19 @ 09:56 by Lavern Robles, [place]-C) Bilateral pleural effusion (Acute) Acute respiratory failure with hypoxia and hypercapnia (Acute) Pericardial effusion without cardiac tamponade (Acute) Closed head injury without loss of consciousness (Acute) Hyperkalemia (Acute) Hypokalemia (Acute) Debility (Acute) Weakness of both legs (Acute) Falls (Acute) Acute and chronic respiratory failure with hypercapnia (Acute) Acute on chronic diastolic heart failure (Acute) Diastolic CHF, acute on chronic (Acute) The patient is a 68 y/o M w/ PMHx: Diastolic Chronic CHF, Chronic COPD Chronic Hypoxic and Hypercarbic Respiratory Failure (2L NC), HTN, HLD, JOSE LUIS, 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 Crowder/Seth, with history of recent admission with BL large pleural effusions, pericardial effusion without tamponade with acute CHF exacerbation with transition to TCU x 1 month with recent discharge ~ 5 days prior who now re-presents to the [facility] ED on 06/14/19 with recurrent worsening dyspnea, increased R>L recurrent pleural effusions, increased work of breathing and accessory muscle usage with increased BL LE edema, orthopnea, weight gain prompting ED presentation with increased fatigue, malaise without any recent fever or chills. 1. Acute on Chronic Hypoxic and Hypercarbic Respiratory Failure secondary to Acute Decompensated Diastolic CHF with Recurrent R>L Pleural effusions: CXR obtained in the ED w/ bilateral pleural effusions, right greater than left. Patient administered IV Bumex in the ED and initiated on BiPAP therapy given severity of presentation, will admit to the ICU with severity of illness coordinator and cardiology consultations continue BiPAP therapy, maintain on cardiac telemetry, obtain cardiac enzyme series, obtain serial EKGs, continue IV lasix diuresis with Lasix drip although will defer to cardiology discretion, monitor I/Os, maintain on intake restriction, continue medical therapy, obtain TSH and magnesium level. Most recent ECHO noted 05/15/2019 with mild concentric LVH, EF 65%, mild collapse/invagination of the right atrium, global longitudinal strain, trivial pericardial effusion, no evidence of cardiac tamponade, moderate size left pleural effusion, global LV scintillation consistent with amyloidosis. Cardiology consulted, pending. PRN morphine to decrease afterload, continue oxygen supplementation, if necessary will position w/ upright position with legs off bed to decrease preload. Plan repeat portable chest x-ray in a.m. following diuresis to assure no infiltrate present although afebrile and no market WC elevation or left shift. 2. Indeterminate cardiac enzyme: EKG in ED with sinus rhythm with no acute evidence of ischemia, CXR w/ evidence CHF exacerbation as noted #1, initial trop 0.049. Will place on a monitored bed to assure no acute myocardial infarction with serial cardiac enzymes and EKGs. Recent echocardiogram thus will not repeat. ASA, NG, morphine. 3. Chronic COPD with chronic hypoxic and hypercarbic respiratory failure although acute presentation as noted #1: Maintain on BiPAP as noted #1 pending improvement with transition to chronic home supplementation once improved, continue ATC duonebs, PRN albuterol, HOB, IS parameters. 4. Plasma cell dyscrasia: Following with Dr. Santana, given recurrent pleural effusions per prior notes may be consideration for further intervention, pulmonary medicine consulted, await their input prior to consultation with oncology. 5. Systemic amyloidosis: Noted cardiac and renal involvement, complicates presentation, cardiology and pulmonary medicine as noted consulted. 6. Chronic Kidney Disease Stage III: Admission BUN/Cr 36/1.38, baseline renal function 1.3, repeat BMP in AM. 7. Macrocytic anemia: Admission hemoglobin 10.5, prior baseline appears 8-10, stable, iron panel, ferritin, vitamin B12 and folic acid levels pending. 8. JOSE LUIS: As noted maintained currently on BiPAP therapy. 9. DVT prophylaxis: SCDs, Lovenox. 10. CODE status: Patient SANDY is his who is present in the room and living will is currently in place. Discussed CODE status at length including difference between FULL code, DNR-CCA and DNR-CC status. Following discussions about the differences in these status, requested full CODE STATUS. Advanced Care Planning Face to Face Time: 16 minutes. Inpatient E&M: 54735 Init Hosp L3 Procedures: 02676 Advncd Care Plan 30 Min
[2019-06-14] MEDS: Nitroglycerin Oint 1 INCH PACKET 0.5 INCH TRANSDERM. ×2 (20:35→22:36)
--- NOTE | 2019-06-14 21:13 | CPS ---
Critical results handed to Dr. Desir in ED at 1900.
[2019-06-14 21:22] LABS: Blood Gas Specimen Type ART
[2019-06-14 21:23] LABS: O2 Delivery Device Bi Pap
[2019-06-14 21:24] LABS: EPAP 8; FI02 50; IPAP 18; RR 12; Time Given 1850
[2019-06-14 21:25] LABS: Base Excess 27 mmol/L (-2 to +2); Bicarbonate 54.3 mmol/L (22-26); PO2 113 mmHG (75-100); SO2 97 % (95-99); Total Carbon Dioxide > 50 mmol/L; pH 7.27 (7.35-7.45)
[2019-06-14 21:42] LABS: Ferritin 744 ng/mL (26-388); Iron 66 ug/dL (65-175); Iron Binding Capacity,Total 175 ug/dL (250-450); Magnesium 2.2 mg/dL (1.6-2.6); PERCENT IRON SATURATION 37.7 % (15.0-55.0); Thyroid Stim Hormone (TSH) 6.82 uIU/mL (0.358-3.74)
[2019-06-14] MEDS: Furosemide 500 MG in Empty Viaflex 50 mL 1 EACH CONT INF (22:00)
[2019-06-14] MEDS: Ipratropium/Albuterol Sulfate 3 ML AMPUL.NEB INHALATION (22:27)
[2019-06-14] MEDS: Metoprolol Tartrate 50 MG Tablet PO (22:35)
[2019-06-14] MEDS: MELATONIN 10 MG TABLET PO (22:36)
[2019-06-14] MEDS: Famotidine 20 MG Tablet PO (22:37)
[2019-06-14] MEDS: 0.9% Saline Lock 10 ML Syringe IV (22:38)
[2019-06-15] VITALS (40 sets, daily range): BP systolic 83–127; BP diastolic 28–91; PULSE 67–111; RESP 18–47; TEMP 36.2–36.9; O2SAT 92–100
--- NOTE | 2019-06-15 01:58 | NURSING ---
Pt is refusing to wear BiPap. Applied O2 3L and pt is maintaining pulse ox >90%. Pt has intermittent confusion and pulling at catheter.
[2019-06-15] MEDS: Ipratropium/Albuterol Sulfate 3 ML AMPUL.NEB INHALATION ×5 (02:34→19:20)
--- NOTE | 2019-06-15 03:32 | CPS ---
Pt. was told several times that BiPAP therapy is strong encouraged for his as of now. Pt. didn't seem to care, and he was persistent on taking the mask off and going back on to 2L Nasal Cannula
[2019-06-15] MEDS: 0.9% Saline Lock 10 ML Syringe IV (03:54)
[2019-06-15 04:09] LABS: Absolute Lymphocyte Count 0.93 X10^3/uL (0.83-4.51); Absolute Neutrophil Count 5.7 X10^3/uL (2.0-7.7); Basophil# 0.01 X10^3/uL; Basophil% 0.1 % (0-1); Eosinophil# 0.02 X10^3/uL; Eosinophils% 0.3 % (0-5); Hematocrit 26.4 % (40-54); Hemoglobin 8.2 g/dL (13.0-16.5); Lymphocyte # 0.93 X10^3/ul (4.0); Lymphocyte % 12.9 % (19-41); Mean Corp Hgb Conc 31.1 g/dL (32-36); Mean Corpuscular Hgb 32.4 pg (27.0-32.0); Mean Corpuscular Volume 104.3 fL (80-94); Monocyte# 0.49 X10^3/uL; Monocyte% 6.8 % (0-10); NRBC Flagged by Analyzer 0 % (0-5); Neutrophil # 5.72 X10^3/uL (2.7-7.7); Neutrophil % 79.6 % (47-70); Platelet Count 219 K/mm3 (150-450); RBC Distribution Width CV 13.5 % (11.6-14.6); Red Blood Count 2.53 M/mm3 (4.6-6.2); White Blood Count 7.2 K/mm3 (4.4-11.0)
[2019-06-15 05:13] LABS: ALB/GLOB Ratio 0.7 RATIO (0.9-2.4); AST(SGOT) 10 U/L (15-37); Alanine Aminotransfer ALT/SGPT 18 U/L (16-61); Albumin, Serum 1.9 g/dL (3.2-5.0); Alkaline Phosphatase 96 U/L (45-117); BUN 39 mg/dL (7-18); BUN/Creat Ratio 26.4 RATIO (10-20); Calcium,Total 8.6 mg/dL (8.5-10.1); Carbon Dioxide > 45.0 mmol/L (21.0-32.0); Chloride 95 mmol/L (98-107); Creatinine, Serum 1.48 mg/dL (0.70-1.30); EST Glomerular Filtration Rate 50 mL/min (>60); Est Glom Filt Rate - Afr Amer 61 mL/min (>60); Estimated Creatinine Clearance 47.77 ml/min; Globulin 2.9 g/dL (2.2-4.2); Glucose 98 mg/dL (74-106); Potassium 4.9 mmol/L (3.5-5.1); Protein, Total 4.8 g/dL (6.4-8.2); Sodium Level 144 mmol/L (136-145)
--- NOTE | 2019-06-15 05:25 | RAD_ITS ---
HISTORY: Dyspnea EXAMINATION/TECHNIQUE: XR Chest 1 View: Portable COMPARISON: 06/14/2019 FINDINGS: Cardiac telemetry leads in place. No significant change. Cardiomegaly with bilateral pleural effusions, moderate on the right and small on the left. Secondary bibasilar passive atelectatic changes. Underlying basilar pneumonia is not excluded. Right IJ Port-A-Cath with the line tip in the region of the right atrium. No pneumothorax. RAD/Chest 1 View (Portable) IMPRESSION: No significant change. CHF with bilateral pleural effusions, larger on the right, with secondary bibasilar atelectatic changes. Underlying basilar pneumonia is not excluded. at 0703 Reported and signed by: Lele Martinez MD Electronically Signed: Lele Martinez, at 7:01 EDT Tel , Service support ,
--- NOTE | 2019-06-15 05:55 | EKG12_ITS ---
Test Reason : AM EKG Blood Pressure : / mmHG Vent. Rate : 091 BPM Atrial Rate : 091 BPM P-R Int : 132 ms QRS Dur : 086 ms QT Int : 378 ms P-R-T Axes : 042 -19 144 degrees QTc Int : 464 ms Normal sinus rhythm Septal infarct (cited on or before 09-JAN-2019) T wave abnormality, consider lateral ischemia Abnormal ECG When compared with ECG of 14-JUN-2019 18:22, No significant change was found Confirmed by MANUEL BAILEY ([id number]), editor index LISA MUNSON ([id number]) on 06/22/2019 11:43:18 AM Referred By: KATIE Confirmed By:MANUEL BAILEY
[2019-06-15 06:04] LABS: T4 Free Direct 0.83 ng/dL (0.76-1.46)
[2019-06-15 06:08] LABS: Allen Test POS
[2019-06-15 06:15] LABS: SITE L RADIAL
--- NOTE | 2019-06-15 07:29 | US_ITS ---
PROCEDURE: ULTRASOUND GUIDED THORACENTESIS. DATE: June 15, 2019. INDICATION: Male, 68 years old. Right pleural effusion PHYSICIAN: Rory Rosa M.D. PROCEDURE: The risks, benefits, and alternatives to the procedure were explained to the patient. The specific risks of bleeding, infection, and pneumothorax requiring chest tube insertion were discussed and accepted. Written informed consent was obtained. Ultrasonographic evaluation of the right lower pleural space was carried out. An adequate pocket was identified. The patient was placed in the sitting, upright position. The overlying skin was prepped and draped in sterile fashion. 1% lidocaine was administered subcutaneously for local anesthesia. Under ultrasound guidance, a 5 [place] thoracentesis needle/catheter system was advanced into the right posterior lower pleural fluid collection. Approximately 2100 mL of kai-colored fluid fluid was drained. The catheter was removed, and a sterile dressing was applied. A specimen was collected and sent to the laboratory for analysis, as requested by the referring clinician. The patient tolerated the procedure well. A chest x-ray was ordered. US/Thoracentesis W US IMPRESSION: Ultrasound-guided right thoracentesis. Electronically Signed: Rory Rosa, at 14:28 EDT , Service support ,
--- NOTE | 2019-06-15 07:40 | PCM.CON.CC ---
Problem List (1) Bilateral pleural effusion Status: Acute (2) Pericardial effusion without cardiac tamponade Status: Acute (3) Lymphedema Status: Chronic (4) Insomnia Status: Chronic (5) Cognitive impairment Status: Chronic (6) JOSE LUIS (obstructive sleep apnea) Status: Chronic (7) Falls Status: Acute (8) Acute on chronic diastolic heart failure Status: Acute (9) Hypothyroidism Status: Chronic Qualifiers: Hypothyroidism type: unspecified Qualified Code(s): E03.9 - Hypothyroidism, unspecified (10) Plasma cell dyscrasia Status: Chronic (11) Amyloidosis Status: Chronic Qualifiers: Amyloidosis type: unspecified amyloidosis Qualified Code(s): E85.9 - Amyloidosis, unspecified Reason for Consult Date of Consultation: 06/15/19 Reason for Consultation: Respiratory failure History of Present Illness: The patient is a 68 year old M, with past medical history listed below and well-known to me from previous admissions, who presented to [facility] on 06/14/2019 from home after being discharged from the TCU on June 08. 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 Patient has had multiple thoracentesis in the past. Patient is reportedly supposed to be taking 80 mg of Lasix twice a day and oxygen at discharge. In the ER, patient required BiPAP therapy secondary to paradoxical breathing. Chest x-ray showed reaccumulation of pleural effusion and lower extremity edema was also noted by ER staff. Patient's BNP was elevated. ABG showed hypercarbic respiratory failure with a pH of 7.26. Patient was initiated on a Bumex drip and admitted to the intensive care unit. Over the course of the evening, patient has been alert and oriented, but requiring frequent reorientation. Patient pulling out his [place] and taking leads off frequently. Patient's blood pressure has been adequate. No fevers been reported. Patient does report dyspnea, but feels that it is improved compared to previous. Review of systems otherwise negative from a constitutional, HEENT, respiratory, cardiovascular, GI, genitourinary, musculoskeletal, skin, neurologic, psychiatric and hematologic system unless stated above. Past Medical History Past Medical History (Chronic Problems): Chronic Problems (Last Reviewed 04/27/19 @ 09:56 by HOLLY Kay) Lymphedema (Chronic) Insomnia (Chronic) Cognitive impairment (Chronic) JOSE LUIS (obstructive sleep apnea) (Chronic) Hypertension (Chronic) Hypothyroidism (Chronic) Plasma cell dyscrasia (Chronic) Nephrotic syndrome (Chronic) Amyloidosis (Chronic) Diastolic CHF (Chronic) Proteinuria (Chronic) CHF (congestive heart failure) (Chronic) Essential (primary) hypertension (Chronic) Medical History: Medical History (Last Reviewed 04/27/19 @ 09:56 by Lavern Robles [employer]USHER TENDER-C) Pericardial effusion (Suspected) I31.3 Proteinuria (Chronic) R80.9 CHF (congestive heart failure) (Chronic) I50.9 Essential (primary) hypertension (Chronic) I10 Allergies No Known Allergies Allergy (Verified 06/14/19 18:21) Home Medications: Ambulatory Orders Medication Instructions Recorded Acetaminophen [Tylenol Tablet] 650 mg PO Q4H PRN PRN tab 05/20/19 Furosemide [Lasix] 80 mg PO BID@1000,1800 #60 tab 06/03/19 Melatonin 10 mg PO QHS tab 06/03/19 Metoprolol Tartrate [Lopressor 50 mg PO BID #60 tab 06/03/19 (beta zak)] Surgical History: Surgical History (Last Reviewed 04/27/19 @ 09:56 by Lavern Robles [employer] TENDER-C) History of open reduction and internal fixation (ORIF) procedure Z98.890 left foot Surgical History: - - ORIF left foot. Psychiatric History: No pertinent psych hx Lives: Spouse/ Significant Other Smoking Status: Former smoker Tobacco Use: Non-smoker Alcohol: None Drugs: None - *Family History Maternal History Items: - - Patient denies any market maternal family history including heart disease, diabetes or cancer, she is and he is unsure of exact cause. Paternal History Items: - - Patient denies any market paternal family history including heart disease, diabetes or cancer, he is and he is unsure of exact cause. Review of Systems Comment: See HPI Objective: Chest x-ray was personally reviewed and shows significant reaccumulation of effusions, right greater than left. Previous testing was reviewed. - Physical Exam Vitals/I&O's: Vital Signs Temp Pulse Resp BP Pulse Ox 36.9 C 104 H 28 H 116/91 H 96 06/15/19 04:00 06/15/19 07:00 06/15/19 07:00 06/15/19 07:00 06/15/19 07:00 Oxygen Flow Rate (L/min) 3 Oxygen Delivery Method Nasal Cannula Weight: 93.1 kg Body Mass Index (BMI) 30.2 Intake and Output for Last 24 Hours 06/13/19 06/14/19 06/15/19 23:59 23:59 23:59 Intake Total 60 / 60 120 / 120 Output Total 400 / 400 250 / 250 Balance -340 / -340 -130 / -130 General: Alert, Oriented x3, Confused - However redirectable, - - Mild to moderate respiratory distress HEENT: Atraumatic, PERRLA, EOMI, Normocephalic, - - No scleral icterus or injection noted Oral: Moist Mucosa, No Gingival or Mucosal Lesions/ Ulcerations Neck: Supple, No Nodes, Trachea Midline, JVD, Right Lungs: No rhonchi, No wheeze, No rales, Diminished - Right greater than left. Dullness to percussion group home up the chest on the right, - - Symmetric expansion. Cardiovascular: Regular rate, Regular Rhythm, Normal S1, Normal S2, No murmurs, No rub noted, No Gallop, - - Slightly distant heart sounds Abdomen: Bowel Sounds Present, Soft, Non Tender, Non-Distended, Obese Extremities: No clubbing, No cyanosis, Edema - 2+ lower extremity edema Skin: No rashes, No breakdown Musculoskeletal: No Tenderness to Palpation of Joints or Extremities Lymphatic: No Cervical, Supraclavicular, or Inguinal Adenopathy Neurological: Cranial nerves II-XII grossly intact, Neuro grossly intact, Motor Exam 5/5 strength throughout Psych/Mental Status: Anxious, Impulsive, Restless Laboratory Results 06/14/19 18:20: WBC 6.8, RBC 3.33 L, Hgb 10.5 L, Hct 36.1 L, MCV 108.4 H, MCH 31.5, MCHC 29.1 L, RDW Std Deviation 53.1 H, RDW Coeff of Babita 13.2, Plt Count 156, MPV 11.0, Immature Gran % (Auto) 0.300, Neut % (Auto) 78.2 H, Lymph % (Auto) 13.5 L, [place] % (Auto) 7.3, Eos % (Auto) 0.3, Baso % (Auto) 0.4, Absolute Neuts (auto) 5.4, Absolute Lymphs (auto) 0.92, Nucleated RBC % 0 06/14/19 18:20: PT 14.2, INR 1.1, APTT 29.5 06/14/19 18:20: Sodium 144, Potassium 4.9, Chloride 96 L, Carbon Dioxide > 45.0 H*, Anion Gap TNP, BUN 36 H, Creatinine 1.38 H, Estim Creat Clear Calc 51.23, Est GFR (MDRD) Af Amer 66, Est GFR (MDRD) Non-Af 54 L, BUN/Creatinine Ratio 26.1 H, Glucose 137 H, Calcium 8.7, Total Bilirubin 0.20, AST 13 L, ALT 20, Alkaline Phosphatase 112, Troponin I 0.049 H, Total Protein 5.3 L, Albumin 2.2 L, Globulin 3.1, Albumin/Globulin Ratio 0.7 L, Lipase 152 06/14/19 18:20: Lactic Acid 0.7 06/14/19 18:20: B-Natriuretic Peptide 1321.0 H 06/14/19 18:20: Magnesium 2.2, Iron 66, TIBC 175 L, Iron Saturation 37.7, Ferritin 744 H, Folate 13.10, TSH 6.82 H 06/14/19 18:50: Specimen Type ART, Sample Site L RADIAL, pH 7.27 L, Bicarbonate Actual 54.3 H, POC Total CO2 > 50, Base Excess 27 H, O2 Saturation 97, O2 % 50, ABG pCO2 119.0 H*, ABG pO2 113 H, Danielito Test POS, Respiration Rate 12, O2 Delivery Device Bi Pap, Vent Mode TNP, EPAP 8, IPAP 18, Blood Gas Notified Whom ED , Blood Gas Notified Time 1850 06/14/19 22:00: Vitamin B12 Pending 06/14/19 22:15: Troponin I 0.062 H 06/15/19 00:10: Troponin I 0.064 H 06/15/19 03:50: Hemoglobin A1c Pending 06/15/19 03:50: WBC 7.2, RBC 2.53 L, Hgb 8.2 L, Hct 26.4 L, MCV 104.3 H, MCH 32.4 H, MCHC 31.1 L D, RDW Std Deviation 52.0 H, RDW Coeff of Babita 13.5, Plt Count 219, MPV 13.0 H, Immature Gran % (Auto) 0.300, Neut % (Auto) 79.6 H, Lymph % (Auto) 12.9 L, [place] % (Auto) 6.8, Eos % (Auto) 0.3, Baso % (Auto) 0.1, Absolute Neuts (auto) 5.7, Absolute Lymphs (auto) 0.93, Nucleated RBC % 0 06/15/19 03:50: Sodium 144, Potassium 4.9, Chloride 95 L, Carbon Dioxide > 45.0 H*, Anion Gap TNP, BUN 39 H, Creatinine 1.48 H, Estim Creat Clear Calc 47.77, Est GFR (MDRD) Af Amer 61, Est GFR (MDRD) Non-Af 50 L, BUN/Creatinine Ratio 26.4 H, Glucose 98, Calcium 8.6, Total Bilirubin 0.30, AST 10 L, ALT 18, Alkaline Phosphatase 96, Total Protein 4.8 L, Albumin 1.9 L, Globulin 2.9, Albumin/Globulin Ratio 0.7 L 06/15/19 03:50: Troponin I Cancelled 06/15/19 04:35: Troponin I 0.040 06/15/19 04:35: Free T4 0.83 Current Medications Acetaminophen (Tylenol) 650 mg PO Q6H PRN PRN PRN Reason: Pain Score 1-10/Temp > 100.7 F Al Hydroxide/Mg Hydroxide (Mylanta Ii) 30 ml PO Q6H PRN PRN PRN Reason: Gastric Burning Albuterol Sulfate (Ventolin Aerosols) 2.5 mg INHALATION Q2H PRN PRN PRN Reason: dyspnea, wheezing Albuterol/Ipratropium (Duoneb) 3 ml INHALATION Q4HWA.RT [facility] Last Admin: 06/15/19 06:34 Dose: 3 ml Documented by: Aspirin (Aspirin, Baby) 81 mg PO DAILY@0800 [facility] Enoxaparin Sodium (Lovenox) 40 mg SC DAILY [facility] Famotidine (Pepcid) 20 mg PO BID [facility] Last Admin: 06/14/19 22:37 Dose: 20 mg Documented by: Glucagon () 1 mg IM .X1 PRN PRN Reason: Hypoglycemia Guaifenesin (Robitussin) 10 ml PO Q4H PRN PRN PRN Reason: COUGH Furosemide 500 mg/ N/A 50 mls @ 1 mls/hr CONT INF .Q50H [facility] Last Admin: 06/14/19 22:00 Dose: 10 mg/hr, 1 mls/hr Documented by: Dextrose (Dextrose 10%-Water) 250 mls @ 999 mls/hr IV .Q16M PRN; Protocol PRN Reason: HYPOGLYCEMIA Sodium Chloride () 250 mls @ 15 mls/hr IV .[id number] PRN PRN Reason: Saline Flush Sodium Chloride () 250 mls @ 15 mls/hr IV .[id number] PRN PRN Reason: Additional IVPB Infusion Magnesium Hydroxide (Milk Of Magnesia) 30 ml PO DAILY PRN PRN PRN Reason: Constipation Melatonin (Melatonin) 10 mg PO QHS [facility] Last Admin: 06/14/19 22:36 Dose: 10 mg Documented by: Metoprolol Tartrate (Lopressor (Beta Zak)) 50 mg PO BID [facility] Last Admin: 06/14/19 22:35 Dose: 50 mg Documented by: Morphine Sulfate () 2 mg IV Q3H PRN PRN PRN Reason: Pain Score 6-10/10 Nitroglycerin (Nitrobid) 0.5 inch TRANSDERM. Q8 [facility] Last Admin: 06/15/19 06:36 Dose: Not Given Documented by: Ondansetron HCl (Zofran) 4 mg IV Q8H PRN PRN PRN Reason: NAUSEA/VOMITING Oxycodone HCl (Oxyir) 5 mg PO Q4H PRN PRN PRN Reason: Pain Score 4-5/10 Prochlorperazine Edisylate (Compazine Iv) 5 mg IV Q4H PRN PRN PRN Reason: Breakthrough Nausea/Vomiting Psyllium Hydrophilic Mucilloid (Metamucil) 1 packet PO DAILY PRN PRN PRN Reason: Constipation Senna/Docusate Sodium (Senokot-S, Lucita-Colace) 2 tablet PO BID PRN PRN PRN Reason: Constipation Sodium Chloride () 10 - 40 ml IV UD PRN PRN Reason: SALINE FLUSH Last Admin: 06/15/19 03:54 Dose: 20 ml Documented by: Throat Lozenges (Cepacol Sore Throat Lozenge) 1 lozenge MUCOUS MEM Q2H PRN PRN PRN Reason: SORE THROAT Clinical Impression(s) from Imaging Studies Chest X-Ray 06/14/19 18:39 IMPRESSION: Bilateral pleural effusions, right greater than left, cannot exclude associated bibasilar atelectasis and or pneumonia. Electronically Signed: Emily Dos Santos MD at 19:07 EDT Tel , Service support , Chest X-Ray 06/15/19 05:25 IMPRESSION: No significant change. CHF with bilateral pleural effusions, larger on the right, with secondary bibasilar atelectatic changes. Underlying basilar pneumonia is not excluded. at 0703 Reported and signed by: Lele Martinez MD Electronically Signed: Lele Martinez, at 7:01 EDT Tel , Service support , Assessment/Plan RECOMMENDATIONS: 1. Continue with diuresis 2. Repeat thoracentesis 3. Wean oxygen as tolerated 4. Encourage pulmonary toileting with Acapella and incentive spirometer 5. BiPAP with sleep and rescue during the day 6. Possible transfer out of the intensive care unit following response to thoracentesis IMPRESSIONS: 1. Acute on chronic combined respiratory failure secondary to acute on chronic diastolic CHF Patient with multiple thoracentesis in the past. Patient appears to have 2 to 3 L present in the right chest at this time. The left appears to be better. High clinical suspicion for transudate etiology, secondary to nephrotic syndrome and diastolic CHF. Patient was significant bicarbonate, so unclear if Bumex drip is going to make a significant difference. Obtain thoracentesis. Pending results of therapy, can likely go out of the intensive care unit later today. Patient may need to be considered for. 2. Amyloidosis Oncology following with the patient as an outpatient. Amyloidosis can affect the lungs, but typically it is from a secondary cause such as nephrotic syndrome and congestive heart failure. Patient could have a CT once pleural effusion is resolved for evaluation of lung parenchyma, but it would likely not change the overall course. Patient may benefit from pulmonary function testing once he is back to his baseline, but defer to primary service. 3. Nephrotic syndrome/hypothyroidism/hypertension/metabolic encephalopathy Complicates care, management, recovery and prognosis. Oncology has been consulted. Okay to continue with baseline medications. Suggest delirium protocol. Avoid benzodiazepines. Consider Haldol as needed Inpatient E&M: 20411 Init Hosp L3
--- NOTE | 2019-06-15 09:42 | PN_ITS ---
Subjective: Chief complaint: Follow-up after admission for acute on chronic hypoxic and hypercapnic respiratory failure due to acute on chronic diastolic CHF and recurrent right more than left pleural effusion. Patient seen and examined. No acute events overnight. This morning, he mentioned that his breathing is getting better slowly. He tolerated BiPAP. At this time, he is on oxygen by nasal cannula. Other vital signs are stable. Plan for thoracentesis today. - Physical Exam Vitals/I&O's: Vital Signs Temp Pulse Resp BP Pulse Ox 98.4 F 104 H 28 H 116/91 H 96 06/15/19 04:00 06/15/19 07:00 06/15/19 07:00 06/15/19 07:00 06/15/19 07:00 Oxygen Flow Rate (L/min) 3 Oxygen Delivery Method Nasal Cannula Weight: 205 lb 4.006 oz Body Mass Index (BMI) 30.2 Intake and Output for Last 24 Hours 06/13/19 06/14/19 06/15/19 23:59 23:59 23:59 Intake Total 60 / 60 120 / 120 Output Total 400 / 400 250 / 250 Balance -340 / -340 -130 / -130 General: Alert, Oriented x3, Cooperative, - - Mildly short of breath. HEENT: Atraumatic, PERRLA, EOMI, Normocephalic Oral: Moist Mucosa, No Gingival or Mucosal Lesions/ Ulcerations Neck: Supple, No JVD, Negative Carotid Bruits, Trachea Midline, Thyroid Normal Size and Texture Lungs: Diminished, Rales, Rhonchi, Short of Breath, - - Markedly decreased breath sounds on the right base, rhonchi bilaterally. Cardiovascular: Regular rate, Regular Rhythm, Normal S1, Normal S2, PMI Normal Abdomen: Bowel Sounds Present, Soft, Non Tender, Non-Distended, No Hepato- splenomegaly Extremities: No clubbing, No cyanosis, Edema - ++ Edema. Skin: No rashes, No breakdown Lymphatic: No Cervical, Supraclavicular, or Inguinal Adenopathy Neurological: Cranial nerves II-XII grossly intact, Motor Exam 5/5 strength throughout Psych/Mental Status: Normal Affect, Appropriate, Alert and oriented to time, place, person, mood and affect Laboratory Results 06/14/19 18:20: WBC 6.8, RBC 3.33 L, Hgb 10.5 L, Hct 36.1 L, MCV 108.4 H, MCH 31.5, MCHC 29.1 L, RDW Std Deviation 53.1 H, RDW Coeff of Babita 13.2, Plt Count 156, MPV 11.0, Immature Gran % (Auto) 0.300, Neut % (Auto) 78.2 H, Lymph % (Auto) 13.5 L, [place] % (Auto) 7.3, Eos % (Auto) 0.3, Baso % (Auto) 0.4, Absolute Neuts (auto) 5.4, Absolute Lymphs (auto) 0.92, Nucleated RBC % 0 06/14/19 18:20: PT 14.2, INR 1.1, APTT 29.5 06/14/19 18:20: Sodium 144, Potassium 4.9, Chloride 96 L, Carbon Dioxide > 45.0 H*, Anion Gap TNP, BUN 36 H, Creatinine 1.38 H, Estim Creat Clear Calc 51.23, Est GFR (MDRD) Af Amer 66, Est GFR (MDRD) Non-Af 54 L, BUN/Creatinine Ratio 26.1 H, Glucose 137 H, Calcium 8.7, Total Bilirubin 0.20, AST 13 L, ALT 20, Alkaline Phosphatase 112, Troponin I 0.049 H, Total Protein 5.3 L, Albumin 2.2 L, Globulin 3.1, Albumin/Globulin Ratio 0.7 L, Lipase 152 06/14/19 18:20: Lactic Acid 0.7 06/14/19 18:20: B-Natriuretic Peptide 1321.0 H 06/14/19 18:20: Magnesium 2.2, Iron 66, TIBC 175 L, Iron Saturation 37.7, Ferritin 744 H, Folate 13.10, TSH 6.82 H 06/14/19 18:50: Specimen Type ART, Sample Site L RADIAL, pH 7.27 L, Bicarbonate Actual 54.3 H, POC Total CO2 > 50, Base Excess 27 H, O2 Saturation 97, O2 % 50, ABG pCO2 119.0 H*, ABG pO2 113 H, Danielito Test POS, Respiration Rate 12, O2 Delivery Device Bi Pap, Vent Mode TNP, EPAP 8, IPAP 18, Blood Gas Notified Whom ED , Blood Gas Notified Time 1850 06/14/19 22:00: Vitamin B12 Pending 03/15/20 22:15: Troponin I 0.062 H 06/15/19 00:10: Troponin I 0.064 H 06/15/19 03:50: Hemoglobin A1c Pending 06/15/19 03:50: WBC 7.2, RBC 2.53 L, Hgb 8.2 L, Hct 26.4 L, MCV 104.3 H, MCH 32.4 H, MCHC 31.1 L D, RDW Std Deviation 52.0 H, RDW Coeff of Babita 13.5, Plt Count 219, MPV 13.0 H, Immature Gran % (Auto) 0.300, Neut % (Auto) 79.6 H, Lymph % (Auto) 12.9 L, [place] % (Auto) 6.8, Eos % (Auto) 0.3, Baso % (Auto) 0.1, Absolute Neuts (auto) 5.7, Absolute Lymphs (auto) 0.93, Nucleated RBC % 0 06/15/19 03:50: Sodium 144, Potassium 4.9, Chloride 95 L, Carbon Dioxide > 45.0 H*, Anion Gap TNP, BUN 39 H, Creatinine 1.48 H, Estim Creat Clear Calc 47.77, Est GFR (MDRD) Af Amer 61, Est GFR (MDRD) Non-Af 50 L, BUN/Creatinine Ratio 26.4 H, Glucose 98, Calcium 8.6, Total Bilirubin 0.30, AST 10 L, ALT 18, Alkaline Phosphatase 96, Total Protein 4.8 L, Albumin 1.9 L, Globulin 2.9, Albumin/Globulin Ratio 0.7 L 06/15/19 03:50: Troponin I Cancelled 06/15/19 04:35: Troponin I 0.040 06/15/19 04:35: Free T4 0.83 06/15/19 04:35: Lactate Dehydrogenase Pending Current Medications Acetaminophen (Tylenol) 650 mg PO Q6H PRN PRN PRN Reason: Pain Score 1-10/Temp > 100.7 F Al Hydroxide/Mg Hydroxide (Mylanta Ii) 30 ml PO Q6H PRN PRN PRN Reason: Gastric Burning Albuterol Sulfate (Ventolin Aerosols) 2.5 mg INHALATION Q2H PRN PRN PRN Reason: dyspnea, wheezing Albuterol/Ipratropium (Duoneb) 3 ml INHALATION Q4HWA.RT [facility] Last Admin: 06/15/19 06:34 Dose: 3 ml Documented by: Aspirin (Aspirin, Baby) 81 mg PO DAILY@0800 [facility] Enoxaparin Sodium (Lovenox) 40 mg SC DAILY [facility] Famotidine (Pepcid) 20 mg PO BID [facility] Last Admin: 06/14/19 22:37 Dose: 20 mg Documented by: Glucagon () 1 mg IM .X1 PRN PRN Reason: Hypoglycemia Guaifenesin (Robitussin) 10 ml PO Q4H PRN PRN PRN Reason: COUGH Furosemide 500 mg/ N/A 50 mls @ 1 mls/hr CONT INF .Q50H [facility] Last Admin: 06/14/19 22:00 Dose: 10 mg/hr, 1 mls/hr Documented by: Dextrose (Dextrose 10%-Water) 250 mls @ 999 mls/hr IV .Q16M PRN; Protocol PRN Reason: HYPOGLYCEMIA Sodium Chloride () 250 mls @ 15 mls/hr IV .[id number] PRN PRN Reason: Saline Flush Sodium Chloride () 250 mls @ 15 mls/hr IV .[id number] PRN PRN Reason: Additional IVPB Infusion Magnesium Hydroxide (Milk Of Magnesia) 30 ml PO DAILY PRN PRN PRN Reason: Constipation Melatonin (Melatonin) 10 mg PO QHS [facility] Last Admin: 06/14/19 22:36 Dose: 10 mg Documented by: Metoprolol Tartrate (Lopressor (Beta Zak)) 50 mg PO BID [facility] Last Admin: 06/14/19 22:35 Dose: 50 mg Documented by: Morphine Sulfate () 2 mg IV Q3H PRN PRN PRN Reason: Pain Score 6-10/10 Nitroglycerin (Nitrobid) 0.5 inch TRANSDERM. Q8 [facility] Last Admin: 06/15/19 06:36 Dose: Not Given Documented by: Ondansetron HCl (Zofran) 4 mg IV Q8H PRN PRN PRN Reason: NAUSEA/VOMITING Oxycodone HCl (Oxyir) 5 mg PO Q4H PRN PRN PRN Reason: Pain Score 4-5/10 Prochlorperazine Edisylate (Compazine Iv) 5 mg IV Q4H PRN PRN PRN Reason: Breakthrough Nausea/Vomiting Psyllium Hydrophilic Mucilloid (Metamucil) 1 packet PO DAILY PRN PRN PRN Reason: Constipation Senna/Docusate Sodium (Senokot-S, Lucita-Colace) 2 tablet PO BID PRN PRN PRN Reason: Constipation Sodium Chloride () 10 - 40 ml IV UD PRN PRN Reason: SALINE FLUSH Last Admin: 06/15/19 03:54 Dose: 20 ml Documented by: Throat Lozenges (Cepacol Sore Throat Lozenge) 1 lozenge MUCOUS MEM Q2H PRN PRN PRN Reason: SORE THROAT Medical Necessity - Tobacco Use Smoking Status: Former smoker Tobacco Use: Non-smoker Assessment/Plan All Active Problems (Last Reviewed 04/27/19 @ 09:56 by Lavern Robles NP-C) Bilateral pleural effusion (Acute) Acute respiratory failure with hypoxia and hypercapnia (Acute) Acute on chronic diastolic heart failure (Acute) This is a 68 years old male patient presented to the emergency room because of worsening shortness of breath and weakness, found to have increasing right pleural effusion complicated by acute on chronic hypercapnic and hypoxic respiratory failure and both are due to acute on chronic diastolic CHF. #1 acute on chronic hypercapnic and hypoxic respiratory failure: Secondary to acute on chronic diastolic CHF. Patient has been on IV Lasix drip and BiPAP. This morning, he is on oxygen by nasal cannula, symptoms started to improve. Chest x-ray reviewed, revealed bilateral pleural effusion, more significant on the right side. He is afebrile, heart rate and blood pressure stable, pulse ox is 96% on 3 L. Patient is does have home oxygen and has been using 2 to 4 L. Plan to continue IV diuresis, thoracentesis today, transfer to PCU after thoracentesis if patient does okay. #2 acute on chronic diastolic CHF: He is IV Lasix drip, and he is on aspirin, metoprolol. EKG revealed no acute ischemic changes. Troponin is minimally effective, came down to normal. Patient denied any chest pain. He had 2D echocardiogram on May, that revealed ejection fraction 65%, trivial pericardial effusion, no cardiac tamponade. His kidney function is stable. Plan to continue same treatment. #3 recurrent right pleural effusion: It is transudative effusion due to CHF and amyloidosis. Patient has been receiving thoracentesis on frequent admissions. He is on IV Lasix drip, continue BiPAP and oxygen as above. Plan for thoracentesis as above. #4 hypertension: Blood pressure stable, continue metoprolol. #5 amyloidosis/plasma cell dyscrasia: Currently not on any treatment. Recommend follow-up with oncology as outpatient. #6 hypothyroidism: Apparently, patient has been off levothyroxine. TSH was slightly related at 6.82. Free T4 was 0.83, normal. #7 nephrotic syndrome with proteinuria: Secondary to amyloidosis. Serum protein and albumin are low. Creatinine is 1.48, stable. Plan to monitor. #8 chronic anemia: Baseline hemoglobin has been around 8 to 10 g/dL in the last 3 months. It is macrocytic anemia. No evidence of active bleeding. Hemoglobin today is 8.2 g/dL. No indication for blood transfusion. #9 DVT prophylaxis: DC subcu Lovenox, start subcu heparin. This note was generated with [employer] dictation software. It may contain incorrect words, spelling, and punctuation that were not noted in checking the note before signing. Inpatient E&M: 23336 Subs Hosp L2
[2019-06-15 09:44] LABS: LDH 216 U/L (87-241)
[2019-06-15 09:49] LABS: Hemoglobin A1c 5.2 % (4.2-6.3)
--- NOTE | 2019-06-15 10:11 | FLU_PTH ---
PATIENT: SHELLEY DOAN LOC: [facility] U#:[id number] AGE/SX: 68/M ROOM: [facility] RE06/14/[address]: Dr. Verna Beltran MD : 1950 BED: 1 DIS: 06/16/2019 SPEC #: [id number] RECD: 06/16/19 07:45 STATUS: MARTHA REQ #: [id number] PRETTY: 06/15/19 10:[address]: Verna Beltran DEPT: CYTOLOGY RECD BY: Vitaly Jenkins ENTERED: 06/16/19 07:46 SP TYPE: Fluid OTHR DR: MD Dr. Roshan Cates DO Dr. Jordan Garrison, DO Dr. Nagapradee Nagajothi, MD Tissues: THORACIC FLUID Procedures: Special Stain Group II Surgery Specimen Level IV Cytospin Fluid HEADER OPERATION: Ultrasound-guided thoracentesis PRE-OP DIAGNOSIS: Right pleural effusion, acute respiratory failure, CHF exacerbation TISSUE SUBMITTED: Thoracentesis fluid for cytology DIAGNOSIS CYTOLOGY Thoracentesis fluid for cytology (cytospin and cell block): Negative for malignant cells. See comment. BAILEE:obi 06/17/19 COMMENT Clinical correlation and appropriate follow up are necessary. Please make reference to previous specimens ([id number], [id number] and [id number]) thoracentesis fluid for cytology with diagnosis of negative for malignant cells. CYTOLOGY STUDY Slides are reviewed. CYTOLOGY GROSS Received is 50 ml of clear yellow fluid labeled with the patient's name and and designated per the requisition as thoracentesis. Submitted for cytology preparation including cell block. / obi 06/16/19 TC:5 CPT: 00099, 99276
[2019-06-15 10:58] LABS: Vitamin B12 219 pg/mL (211-911)
[2019-06-15] MEDS: Metoprolol Tartrate 50 MG Tablet PO (12:07)
--- NOTE | 2019-06-15 13:50 | RAD_ITS ---
STUDY: X-RAY CHEST REASON FOR EXAM: Male, 68 years old. Post thorax TECHNIQUE: AP inspiration and expiration views. COMPARISON: Comparison is made with prior examination dated June 15, 2019 at 5:30 AM. FINDINGS: The patient is status post right thoracentesis. There is no evidence for pneumothorax. Mild residual pleural parenchymal changes are seen at the right lung base. Stable appearance of the left lung. RAD/Chest Insp/Exp 2 View IMPRESSION: Status post right thoracentesis. There is no evidence of pneumothorax. Electronically Signed: Rory Rosa, at 14:30 EDT , Service support ,
[2019-06-15 14:14] LABS: Cytology, Body Fluid / CSF SEE PATHOLOGY REPORT
[2019-06-15 14:27] LABS: Body Fluid Mononuclear WBC # 0.034 10^3/uL; Body Fluid Total Cells Counted 0.051 10^3/ul; White Blood Count/Body Fluid 0.034 10^3/uL
[2019-06-15 14:45] LABS: Glucose, Body Fluid 114 mg/dL (40-70); LDH,Body Fluid 68 Units/l (Not Establ.); Protein, Body Fluid 1.2 g/dL (Not Establ.)
[2019-06-15 14:55] LABS: Appearance/Body Fluid SL CLDY; Auto B Fluid Analyzer BKGD Ct COUNTS W/IN LIMITS (W/IN LIMITS); Color/Body Fluid LT YEL; Source- Body Fluid THORACENTESIS
[2019-06-15 15:18] LABS: Lymphocytes 39 %; Mesothelial Cells 34 %; Monocytes 27 %
[2019-06-15 16:49] LABS: Red Cell Count/Body Fluid 127 /mm3
[2019-06-15 16:50] LABS: Body Fluid QC Type(s) BF1Q,BF2Q
--- NOTE | 2019-06-15 17:02 | CON.PCM_ITS ---
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 Crowder/Seth, with history of recent admission with BL large pleural effusions, pericardial effusion without tamponade with acute CHF exacerbation with transition to TCU x 1 month with recent discharge ~ 5 days prior who now re-presents to the [facility] ED on 06/14/19 with recurrent worsening dyspnea, increased R>L recurrent pleural effusions, increased work of breathing and accessory muscle usage with increased BL LE edema, orthopnea, weight gain prompting ED presentation with increased fatigue, malaise without any recent fever or chills. Patient was admitted to the ICU and started on Lasix drip. He also had thoracentesis today. Patient is confused and is unable to give a good history. His states that he looks better than he did yesterday. Review of systems: Review of systems cannot be obtained since patient is confused. Past Medical History Allergies/Adverse Reactions: Allergies No Known Allergies Allergy (Verified 06/14/19 18:21) Home Medications: Ambulatory Orders Medication Instructions Recorded Acetaminophen [Tylenol Tablet] 650 mg PO Q4H PRN PRN tab 05/20/19 Furosemide [Lasix] 80 mg PO BID@1000,1800 #60 tab 06/03/19 Melatonin 10 mg PO QHS tab 06/03/19 Metoprolol Tartrate [Lopressor 50 mg PO BID #60 tab 06/03/19 (beta ivelisse)] Past Medical History (Chronic Problems): Chronic Problems (Last Updated 06/15/19 @ 10:[address] Verna Beltran MD) Lymphedema (Chronic) Insomnia (Chronic) Cognitive impairment (Chronic) JOSE LUIS (obstructive sleep apnea) (Chronic) Hypertension (Chronic) Hypothyroidism (Chronic) Plasma cell dyscrasia (Chronic) Nephrotic syndrome (Chronic) Amyloidosis (Chronic) Diastolic CHF (Chronic) Proteinuria (Chronic) CHF (congestive heart failure) (Chronic) Essential (primary) hypertension (Chronic) Surgical History: - - ORIF left foot. Psychiatric History: No pertinent psych hx - *Family History Maternal History Items: - - Patient denies any market maternal family history including heart disease, diabetes or cancer, she is and he is unsure of exact cause. Paternal History Items: - - Patient denies any market paternal family history including heart disease, diabetes or cancer, he is and he is unsure of exact cause. Lives: Spouse/ Significant Other Smoking Status: Former smoker Tobacco Use: Non-smoker Alcohol: None Drugs: None Objective: Vital Signs Temp Pulse Resp BP Pulse Ox 97.8 F 84 26 H 101/74 95 06/15/19 16:00 06/15/19 16:00 06/15/19 16:00 06/15/19 16:00 06/15/19 16:00 Oxygen Flow Rate (L/min) [3] 2 Oxygen Flow Rate (L/min) [2] 2 Oxygen Flow Rate (L/min) [1 ( 2 Initial Baseline)] Oxygen Flow Rate (L/min) 2 Oxygen Delivery Method [3] Nasal Cannula Oxygen Delivery Method [2] Nasal Cannula Oxygen Delivery Method [1 ( Nasal Cannula Initial Baseline)] Oxygen Delivery Method Nasal Cannula Weight: 205 lb 4.006 oz Body Mass Index (BMI) 30.2 Intake and Output for Last 24 Hours 06/13/19 06/14/19 06/15/19 23:59 23:59 23:59 Intake Total 60 / 60 360 / 360 Output Total 400 / 400 5125 / 5125 Balance -340 / -340 -4765 / -4765 General: Awake, Disoriented HEENT: Atraumatic Oral: Moist Mucosa Neck: Supple Lungs: Diminished Marcial Bases Cardiovascular: Regular Rhythm Abdomen: Soft Extremities: Bilateral Edema +2 Skin: No Rashes 06/14/19 18:20: WBC 6.8, RBC 3.33 L, Hgb 10.5 L, Hct 36.1 L, MCV 108.4 H, MCH 31.5, MCHC 29.1 L, Plt Count 156, MPV 11.0, Immature Gran % (Auto) 0.300, Neut % (Auto) 78.2 H, Lymph % (Auto) 13.5 L, Grayson % (Auto) 7.3, Eos % (Auto) 0.3, Baso % (Auto) 0.4, Absolute Neuts (auto) 5.4, Nucleated RBC % 0 06/14/19 18:20: PT 14.2, INR 1.1, APTT 29.5 06/14/19 18:20: Sodium 144, Potassium 4.9, Chloride 96 L, Carbon Dioxide > 45.0 H*, Anion Gap TNP, BUN 36 H, Creatinine 1.38 H, Est GFR (MDRD) Af Amer 66, Est GFR (MDRD) Non-Af 54 L, BUN/Creatinine Ratio 26.1 H, Glucose 137 H, Calcium 8.7, Total Bilirubin 0.20, Troponin I 0.049 H 06/14/19 18:20: Lactic Acid 0.7 06/14/19 18:20: B-Natriuretic Peptide 1321.0 H 06/14/19 18:20: Magnesium 2.2, Iron 66, TIBC 175 L, Iron Saturation 37.7, Ferritin 744 H 06/14/19 18:50: pH 7.27 L, Bicarbonate Actual 54.3 H, POC Total CO2 > 50, Base Excess 27 H, O2 Saturation 97, ABG pCO2 119.0 H*, ABG pO2 113 H, Danielito Test POS 06/14/19 22:15: Troponin I 0.062 H 06/15/19 00:10: Troponin I 0.064 H 06/15/19 03:50: Hemoglobin A1c 5.2 06/15/19 03:50: WBC 7.2, RBC 2.53 L, Hgb 8.2 L, Hct 26.4 L, MCV 104.3 H, MCH 32.4 H, MCHC 31.1 L D, Plt Count 219, MPV 13.0 H, Immature Gran % (Auto) 0.300, Neut % (Auto) 79.6 H, Lymph % (Auto) 12.9 L, Grayson % (Auto) 6.8, Eos % (Auto) 0.3, Baso % (Auto) 0.1, Absolute Neuts (auto) 5.7, Nucleated RBC % 0 06/15/19 03:50: Sodium 144, Potassium 4.9, Chloride 95 L, Carbon Dioxide > 45.0 H*, Anion Gap TNP, BUN 39 H, Creatinine 1.48 H, Est GFR (MDRD) Af Amer 61, Est GFR (MDRD) Non-Af 50 L, BUN/Creatinine Ratio 26.4 H, Glucose 98, Calcium 8.6, Total Bilirubin 0.30 06/15/19 03:50: Troponin I Cancelled 06/15/19 04:35: Troponin I 0.040 Rhythm: EKG: ECHO: Stress Test: Cardiac Cath: PCI: CT Surgery: Holter monitor: EPS: PPM: CXR: Chest CT Scan: Assessment/Plan 1. Shortness of breath: Patient presented with pleural effusions and evidence of volume overload. Patient is status post thoracentesis. Agree with continuing Lasix drip. It will be reasonable to decrease it to 5 mg/h. Patient has history of nephrotic syndrome due to renal amyloidosis and also possible cardiac involvement based on echo. His EF is known to be preserved.
[2019-06-15] MEDS: Famotidine 20 MG Tablet PO (20:49)
[2019-06-15] MEDS: MELATONIN 10 MG TABLET PO (20:49)
[2019-06-15] MEDS: Heparin Injection (Vial) 5,000 UNIT/ML VIAL 5000 UNIT SC (20:49)
--- NOTE | 2019-06-15 21:50 | CPS ---
pt refused bipap
[2019-06-15] MEDS: OLANZapine 5 MG/TAB TAB.RAPDIS PO (22:34)
--- NOTE | 2019-06-15 23:27 | NURSING ---
Pt has been impulsive, attempting to get out of bed, pulling at Hamilton catheter, removing cardiac leads, and O2. PATIENT CARE ASSOCIATE has been at bedside for majority of evening, to ensure pt safety. Administered ordered zyprexa. Pt is more calm and easier to redirect at this time.
[2019-06-16] VITALS (14 sets, daily range): BP systolic 90–144; BP diastolic 57–101; PULSE 22–122; RESP 20–37; TEMP 36.2–36.6; O2SAT 93–97
--- NOTE | 2019-06-16 01:13 | NURSING ---
Pt continues with unwillingness to follow commands, attempting to get out of bed, pulling at gown, and equipment.
[2019-06-16] MEDS: OLANZapine 5 MG/TAB TAB.RAPDIS PO (02:10)
[2019-06-16 03:40] LABS: Absolute Lymphocyte Count 0.86 X10^3/uL (0.83-4.51); Absolute Neutrophil Count 5.1 X10^3/uL (2.0-7.7); Basophil# 0.02 X10^3/uL; Basophil% 0.3 % (0-1); Eosinophil# 0.01 X10^3/uL; Eosinophils% 0.2 % (0-5); Hematocrit 31.3 % (40-54); Hemoglobin 9.5 g/dL (13.0-16.5); Lymphocyte # 0.86 X10^3/ul (4.0); Lymphocyte % 13.5 % (19-41); Mean Corp Hgb Conc 30.4 g/dL (32-36); Mean Corpuscular Hgb 31.1 pg (27.0-32.0); Mean Corpuscular Volume 102.6 fL (80-94); Mean Platelet Vol. 11.2 fl (6.2-12.0); Monocyte# 0.38 X10^3/uL; NRBC Flagged by Analyzer 0 % (0-5); Neutrophil # 5.07 X10^3/uL (2.7-7.7); Neutrophil % 79.8 % (47-70); Platelet Count 114 K/mm3 (150-450); Red Blood Count 3.05 M/mm3 (4.6-6.2); White Blood Count 6.4 K/mm3 (4.4-11.0)
[2019-06-16] MEDS: Haloperidol Lactate 5 MG/ML Vial 2 MG IV (04:09)
[2019-06-16 04:10] LABS: BUN 41 mg/dL (7-18); BUN/Creat Ratio 25.8 RATIO (10-20); Calcium,Total 8.7 mg/dL (8.5-10.1); Carbon Dioxide > 45.0 mmol/L (21.0-32.0); Chloride 91 mmol/L (98-107); Creatinine, Serum 1.59 mg/dL (0.70-1.30); EST Glomerular Filtration Rate 46 mL/min (>60); Est Glom Filt Rate - Afr Amer 56 mL/min (>60); Estimated Creatinine Clearance 44.47 ml/min; Glucose 101 mg/dL (74-106); Sodium Level 141 mmol/L (136-145)
[2019-06-16] MEDS: 0.9% Saline Lock 10 ML Syringe IV (04:14)
--- NOTE | 2019-06-16 07:49 | PCM.PN.INT ---
Subjective: Patient did okay overnight from a hemodynamic standpoint. Patient continues to have significant confusion with probable hallucinations. Patient did have a thoracentesis yesterday and tolerated the procedure well. No boluses were required for hypotension overnight. Patient does remain on a Lasix drip per cardiology. General: Alert, Confused, Disoriented, Non-Cooperative, - - Reaching for objects that are not there. HEENT: Atraumatic, PERRLA, EOMI, Normocephalic, - - Some scleral injection Oral: Moist Mucosa, No Gingival or Mucosal Lesions/ Ulcerations Neck: Supple, No JVD, No Nodes, Trachea Midline Lungs: No rhonchi, No wheeze, No rales, Diminished, - - Slight dullness to percussion at the left base Cardiovascular: Normal S1, Normal S2, No murmurs, No rub noted, No Gallop, Tachycardic Abdomen: Bowel Sounds Present, Soft, Non Tender, Non-Distended Extremities: No clubbing, No cyanosis, Capillary Refill Less than 3 Seconds, Edema Skin: No rashes, No breakdown Musculoskeletal: No Tenderness to Palpation of Joints or Extremities Lymphatic: No Cervical, Supraclavicular, or Inguinal Adenopathy Neurological: Cranial nerves II-XII grossly intact, Neuro grossly intact, Motor Exam 5/5 strength throughout Psych/Mental Status: Anxious, Impulsive, Restless Vital Signs Temp Pulse Resp BP Pulse Ox 36.6 C 44 L 30 H 122/63 H 96 06/16/19 04:00 06/16/19 06:27 06/16/19 06:00 06/16/19 06:27 06/16/19 04:00 Oxygen Flow Rate (L/min) [3] 2 Oxygen Flow Rate (L/min) [2] 2 Oxygen Flow Rate (L/min) [1 ( 2 Initial Baseline)] Oxygen Flow Rate (L/min) 2 Oxygen Delivery Method [3] Nasal Cannula Oxygen Delivery Method [2] Nasal Cannula Oxygen Delivery Method [1 ( Nasal Cannula Initial Baseline)] Oxygen Delivery Method Nasal Cannula Weight: 85.5 kg Body Mass Index (BMI) 30.2 Intake and Output for Last 24 Hours 06/14/19 06/15/19 06/16/19 23:59 23:59 23:59 Intake Total 60 / 60 769 / 769 Output Total 400 / 400 5725 / 5725 700 / 700 Balance -340 / -340 -4956 / -4956 -700 / -700 Labs (Last 48 Hours) 06/14/19 06/14/19 06/14/19 18:20 18:20 18:20 WBC 6.8 RBC 3.33 L Hgb 10.5 L Hct 36.1 L MCV 108.4 H MCH 31.5 MCHC 29.1 L RDW Std Deviation 53.1 H RDW Coeff of Babita 13.2 Plt Count 156 MPV 11.0 Immature Gran % (Auto) 0.300 Neut % (Auto) 78.2 H Lymph % (Auto) 13.5 L [place] % (Auto) 7.3 Eos % (Auto) 0.3 Baso % (Auto) 0.4 Absolute Neuts (auto) 5.4 Absolute Lymphs (auto) 0.92 Nucleated RBC % 0 PT 14.2 INR 1.1 APTT 29.5 Specimen Type Sample Site pH Bicarbonate Actual POC Total CO2 Base Excess O2 Saturation O2 % ABG pCO2 ABG pO2 Danielito Test Respiration Rate O2 Delivery Device Vent Mode EPAP IPAP Blood Gas Notified Whom Blood Gas Notified Time Sodium 144 Potassium 4.9 Chloride 96 L Carbon Dioxide > 45.0 H* Anion Gap TNP BUN 36 H Creatinine 1.38 H Estim Creat Clear Calc 51.23 Est GFR (MDRD) Af Amer 66 Est GFR (MDRD) Non-Af 54 L BUN/Creatinine Ratio 26.1 H Glucose 137 H Hemoglobin A1c Lactic Acid Calcium 8.7 Magnesium Iron TIBC Iron Saturation Ferritin Total Bilirubin 0.20 AST 13 L ALT 20 Alkaline Phosphatase 112 Lactate Dehydrogenase Troponin I 0.049 H B-Natriuretic Peptide Total Protein 5.3 L Albumin 2.2 L Globulin 3.1 Albumin/Globulin Ratio 0.7 L Lipase 152 Vitamin B12 Folate TSH Free T4 Fluid Source Fluid Color Fluid Appearance Fluid WBC Fluid RBC Fluid Tot Cell Count Fld Polynuclear WBCs # Fld Polynuclear WBCs % Fluid Mononuclear WBCs Fld Mononuclear WBCs % Fluid Lymphocytes Fluid Monocytes Fld Mesothelial Cells Fl Pathologist Comment Fluid Glucose Fluid Total Protein Fluid LDH Fluid Comment 2 Miscellaneous Cytology 06/14/19 06/14/19 06/14/19 18:20 18:20 18:20 WBC RBC Hgb Hct MCV MCH MCHC RDW Std Deviation RDW Coeff of Babita Plt Count MPV Immature Gran % (Auto) Neut % (Auto) Lymph % (Auto) [place] % (Auto) Eos % (Auto) Baso % (Auto) Absolute Neuts (auto) Absolute Lymphs (auto) Nucleated RBC % PT INR APTT Specimen Type Sample Site pH Bicarbonate Actual POC Total CO2 Base Excess O2 Saturation O2 % ABG pCO2 ABG pO2 Danielito Test Respiration Rate O2 Delivery Device Vent Mode EPAP IPAP Blood Gas Notified Whom Blood Gas Notified Time Sodium Potassium Chloride Carbon Dioxide Anion Gap BUN Creatinine Estim Creat Clear Calc Est GFR (MDRD) Af Amer Est GFR (MDRD) Non-Af BUN/Creatinine Ratio Glucose Hemoglobin A1c Lactic Acid 0.7 Calcium Magnesium 2.2 Iron 66 TIBC 175 L Iron Saturation 37.7 Ferritin 744 H Total Bilirubin AST ALT Alkaline Phosphatase Lactate Dehydrogenase Troponin I B-Natriuretic Peptide 1321.0 H Total Protein Albumin Globulin Albumin/Globulin Ratio Lipase Vitamin B12 Folate 13.10 TSH 6.82 H Free T4 Fluid Source Fluid Color Fluid Appearance Fluid WBC Fluid RBC Fluid Tot Cell Count Fld Polynuclear WBCs # Fld Polynuclear WBCs % Fluid Mononuclear WBCs Fld Mononuclear WBCs % Fluid Lymphocytes Fluid Monocytes Fld Mesothelial Cells Fl Pathologist Comment Fluid Glucose Fluid Total Protein Fluid LDH Fluid Comment 2 Miscellaneous Cytology 06/14/19 06/14/19 06/14/19 18:50 22:00 22:15 WBC RBC Hgb Hct MCV MCH MCHC RDW Std Deviation RDW Coeff of Babita Plt Count MPV Immature Gran % (Auto) Neut % (Auto) Lymph % (Auto) [place] % (Auto) Eos % (Auto) Baso % (Auto) Absolute Neuts (auto) Absolute Lymphs (auto) Nucleated RBC % PT INR APTT Specimen Type ART Sample Site L RADIAL pH 7.27 L Bicarbonate Actual 54.3 H POC Total CO2 > 50 Base Excess 27 H O2 Saturation 97 O2 % 50 ABG pCO2 119.0 H* ABG pO2 113 H Danielito Test POS Respiration Rate 12 O2 Delivery Device Bi Pap Vent Mode TNP EPAP 8 IPAP 18 Blood Gas Notified Whom ED Blood Gas Notified Time 1850 Sodium Potassium Chloride Carbon Dioxide Anion Gap BUN Creatinine Estim Creat Clear Calc Est GFR (MDRD) Af Amer Est GFR (MDRD) Non-Af BUN/Creatinine Ratio Glucose Hemoglobin A1c Lactic Acid Calcium Magnesium Iron TIBC Iron Saturation Ferritin Total Bilirubin AST ALT Alkaline Phosphatase Lactate Dehydrogenase Troponin I 0.062 H B-Natriuretic Peptide Total Protein Albumin Globulin Albumin/Globulin Ratio Lipase Vitamin B12 219 Folate TSH Free T4 Fluid Source Fluid Color Fluid Appearance Fluid WBC Fluid RBC Fluid Tot Cell Count Fld Polynuclear WBCs # Fld Polynuclear WBCs % Fluid Mononuclear WBCs Fld Mononuclear WBCs % Fluid Lymphocytes Fluid Monocytes Fld Mesothelial Cells Fl Pathologist Comment Fluid Glucose Fluid Total Protein Fluid LDH Fluid Comment 2 Miscellaneous Cytology 06/15/19 06/15/19 06/15/19 00:10 03:50 03:50 WBC 7.2 RBC 2.53 L Hgb 8.2 L Hct 26.4 L MCV 104.3 H MCH 32.4 H MCHC 31.1 L D RDW Std Deviation 52.0 H RDW Coeff of Babita 13.5 Plt Count 219 MPV 13.0 H Immature Gran % (Auto) 0.300 Neut % (Auto) 79.6 H Lymph % (Auto) 12.9 L [place] % (Auto) 6.8 Eos % (Auto) 0.3 Baso % (Auto) 0.1 Absolute Neuts (auto) 5.7 Absolute Lymphs (auto) 0.93 Nucleated RBC % 0 PT INR APTT Specimen Type Sample Site pH Bicarbonate Actual POC Total CO2 Base Excess O2 Saturation O2 % ABG pCO2 ABG pO2 Danielito Test Respiration Rate O2 Delivery Device Vent Mode EPAP IPAP Blood Gas Notified Whom Blood Gas Notified Time Sodium Potassium Chloride Carbon Dioxide Anion Gap BUN Creatinine Estim Creat Clear Calc Est GFR (MDRD) Af Amer Est GFR (MDRD) Non-Af BUN/Creatinine Ratio Glucose Hemoglobin A1c 5.2 Lactic Acid Calcium Magnesium Iron TIBC Iron Saturation Ferritin Total Bilirubin AST ALT Alkaline Phosphatase Lactate Dehydrogenase Troponin I 0.064 H B-Natriuretic Peptide Total Protein Albumin Globulin Albumin/Globulin Ratio Lipase Vitamin B12 Folate TSH Free T4 Fluid Source Fluid Color Fluid Appearance Fluid WBC Fluid RBC Fluid Tot Cell Count Fld Polynuclear WBCs # Fld Polynuclear WBCs % Fluid Mononuclear WBCs Fld Mononuclear WBCs % Fluid Lymphocytes Fluid Monocytes Fld Mesothelial Cells Fl Pathologist Comment Fluid Glucose Fluid Total Protein Fluid LDH Fluid Comment 2 Miscellaneous Cytology 06/15/19 06/15/19 06/15/19 03:50 03:50 04:35 WBC RBC Hgb Hct MCV MCH MCHC RDW Std Deviation RDW Coeff of Babita Plt Count MPV Immature Gran % (Auto) Neut % (Auto) Lymph % (Auto) [place] % (Auto) Eos % (Auto) Baso % (Auto) Absolute Neuts (auto) Absolute Lymphs (auto) Nucleated RBC % PT INR APTT Specimen Type Sample Site pH Bicarbonate Actual POC Total CO2 Base Excess O2 Saturation O2 % ABG pCO2 ABG pO2 Danielito Test Respiration Rate O2 Delivery Device Vent Mode EPAP IPAP Blood Gas Notified Whom Blood Gas Notified Time Sodium 144 Potassium 4.9 Chloride 95 L Carbon Dioxide > 45.0 H* Anion Gap TNP BUN 39 H Creatinine 1.48 H Estim Creat Clear Calc 47.77 Est GFR (MDRD) Af Amer 61 Est GFR (MDRD) Non-Af 50 L BUN/Creatinine Ratio 26.4 H Glucose 98 Hemoglobin A1c Lactic Acid Calcium 8.6 Magnesium Iron TIBC Iron Saturation Ferritin Total Bilirubin 0.30 AST 10 L ALT 18 Alkaline Phosphatase 96 Lactate Dehydrogenase Troponin I Cancelled 0.040 B-Natriuretic Peptide Total Protein 4.8 L Albumin 1.9 L Globulin 2.9 Albumin/Globulin Ratio 0.7 L Lipase Vitamin B12 Folate TSH Free T4 Fluid Source Fluid Color Fluid Appearance Fluid WBC Fluid RBC Fluid Tot Cell Count Fld Polynuclear WBCs # Fld Polynuclear WBCs % Fluid Mononuclear WBCs Fld Mononuclear WBCs % Fluid Lymphocytes Fluid Monocytes Fld Mesothelial Cells Fl Pathologist Comment Fluid Glucose Fluid Total Protein Fluid LDH Fluid Comment 2 Miscellaneous Cytology 06/15/19 06/15/19 06/15/19 04:35 04:35 14:12 WBC RBC Hgb Hct MCV MCH MCHC RDW Std Deviation RDW Coeff of Babita Plt Count MPV Immature Gran % (Auto) Neut % (Auto) Lymph % (Auto) [place] % (Auto) Eos % (Auto) Baso % (Auto) Absolute Neuts (auto) Absolute Lymphs (auto) Nucleated RBC % PT INR APTT Specimen Type Sample Site pH Bicarbonate Actual POC Total CO2 Base Excess O2 Saturation O2 % ABG pCO2 ABG pO2 Danielito Test Respiration Rate O2 Delivery Device Vent Mode EPAP IPAP Blood Gas Notified Whom Blood Gas Notified Time Sodium Potassium Chloride Carbon Dioxide Anion Gap BUN Creatinine Estim Creat Clear Calc Est GFR (MDRD) Af Amer Est GFR (MDRD) Non-Af BUN/Creatinine Ratio Glucose Hemoglobin A1c Lactic Acid Calcium Magnesium Iron TIBC Iron Saturation Ferritin Total Bilirubin AST ALT Alkaline Phosphatase Lactate Dehydrogenase 216 Troponin I B-Natriuretic Peptide Total Protein Albumin Globulin Albumin/Globulin Ratio Lipase Vitamin B12 Folate TSH Free T4 0.83 Fluid Source Fluid Color Fluid Appearance Fluid WBC Fluid RBC Fluid Tot Cell Count Fld Polynuclear WBCs # Fld Polynuclear WBCs % Fluid Mononuclear WBCs Fld Mononuclear WBCs % Fluid Lymphocytes Fluid Monocytes Fld Mesothelial Cells Fl Pathologist Comment Fluid Glucose 114 H Fluid Total Protein 1.2 Fluid LDH 68 Fluid Comment 2 Miscellaneous Cytology 06/15/19 06/15/19 06/16/19 14:12 14:12 03:30 WBC 6.4 RBC 3.05 L Hgb 9.5 L Hct 31.3 L MCV 102.6 H MCH 31.1 MCHC 30.4 L RDW Std Deviation 49.0 H RDW Coeff of Babita 13.0 Plt Count 114 L MPV 11.2 Immature Gran % (Auto) 0.200 Neut % (Auto) 79.8 H Lymph % (Auto) 13.5 L [place] % (Auto) 6.0 Eos % (Auto) 0.2 Baso % (Auto) 0.3 Absolute Neuts (auto) 5.1 Absolute Lymphs (auto) 0.86 Nucleated RBC % 0 PT INR APTT Specimen Type Sample Site pH Bicarbonate Actual POC Total CO2 Base Excess O2 Saturation O2 % ABG pCO2 ABG pO2 Danielito Test Respiration Rate O2 Delivery Device Vent Mode EPAP IPAP Blood Gas Notified Whom Blood Gas Notified Time Sodium Potassium Chloride Carbon Dioxide Anion Gap BUN Creatinine Estim Creat Clear Calc Est GFR (MDRD) Af Amer Est GFR (MDRD) Non-Af BUN/Creatinine Ratio Glucose Hemoglobin A1c Lactic Acid Calcium Magnesium Iron TIBC Iron Saturation Ferritin Total Bilirubin AST ALT Alkaline Phosphatase Lactate Dehydrogenase Troponin I B-Natriuretic Peptide Total Protein Albumin Globulin Albumin/Globulin Ratio Lipase Vitamin B12 Folate TSH Free T4 Fluid Source THORACENTESIS Fluid Color LT YEL Fluid Appearance SL CLDY Fluid WBC 0.034 Fluid RBC 127 Fluid Tot Cell Count 0.051 Fld Polynuclear WBCs # 0.000 Fld Polynuclear WBCs % 0.0 Fluid Mononuclear WBCs 0.034 Fld Mononuclear WBCs % 100.0 Fluid Lymphocytes 39 Fluid Monocytes 27 Fld Mesothelial Cells 34 Fl Pathologist Comment May follow Fluid Glucose Fluid Total Protein Fluid LDH Fluid Comment 2 SEE COMMENT Miscellaneous Cytology Pending 06/16/19 03:30 WBC RBC Hgb Hct MCV MCH MCHC RDW Std Deviation RDW Coeff of Babita Plt Count MPV Immature Gran % (Auto) Neut % (Auto) Lymph % (Auto) [place] % (Auto) Eos % (Auto) Baso % (Auto) Absolute Neuts (auto) Absolute Lymphs (auto) Nucleated RBC % PT INR APTT Specimen Type Sample Site pH Bicarbonate Actual POC Total CO2 Base Excess O2 Saturation O2 % ABG pCO2 ABG pO2 Danielito Test Respiration Rate O2 Delivery Device Vent Mode EPAP IPAP Blood Gas Notified Whom Blood Gas Notified Time Sodium 141 Potassium 4.0 Chloride 91 L Carbon Dioxide > 45.0 H* Anion Gap TNP BUN 41 H Creatinine 1.59 H Estim Creat Clear Calc 44.47 Est GFR (MDRD) Af Amer 56 L Est GFR (MDRD) Non-Af 46 L BUN/Creatinine Ratio 25.8 H Glucose 101 Hemoglobin A1c Lactic Acid Calcium 8.7 Magnesium Iron TIBC Iron Saturation Ferritin Total Bilirubin AST ALT Alkaline Phosphatase Lactate Dehydrogenase Troponin I B-Natriuretic Peptide Total Protein Albumin Globulin Albumin/Globulin Ratio Lipase Vitamin B12 Folate TSH Free T4 Fluid Source Fluid Color Fluid Appearance Fluid WBC Fluid RBC Fluid Tot Cell Count Fld Polynuclear WBCs # Fld Polynuclear WBCs % Fluid Mononuclear WBCs Fld Mononuclear WBCs % Fluid Lymphocytes Fluid Monocytes Fld Mesothelial Cells Fl Pathologist Comment Fluid Glucose Fluid Total Protein Fluid LDH Fluid Comment 2 Miscellaneous Cytology Microbiology 06/15/19 14:12 Fluid - Thoracentesis Fluid Gram Stain - Final Clinical Impression(s) from Imaging Studies Thoracentesis Ultrasound 06/15/19 07:29 IMPRESSION: Ultrasound-guided right thoracentesis. Electronically Signed: Rory Rosa at 14:28 EDT , Service support , Chest X-Ray 06/15/19 13:50 IMPRESSION: Status post right thoracentesis. There is no evidence of pneumothorax. Electronically Signed: Rory Rosa at 14:30 EDT , Service support , Medical Necessity - Tobacco Use Smoking Status: Former smoker Tobacco Use: Non-smoker Assessment/Plan All Active Problems (Last Updated 06/15/19 @ 10:[address] Verna Beltran MD) Bilateral pleural effusion (Acute) Acute respiratory failure with hypoxia and hypercapnia (Acute) Acute on chronic diastolic heart failure (Acute) RECOMMENDATIONS: 1. Continue with diuresis per cardiology 2. Delirium protocol 3. Wean oxygen as tolerated 4. Encourage pulmonary toileting with Acapella and incentive spirometer 5. Transfer out of the intensive care unit IMPRESSIONS: 1. Acute on chronic combined respiratory failure secondary to acute on chronic diastolic CHF Patient with multiple thoracentesis in the past. Patient had a thoracentesis yesterday that showed transudate etiology. Patient is currently on a Lasix drip per cardiology. Respiratory status is back to baseline at this time. Patient is very confused, complicating medical therapy, but has remained hemodynamically stable. Okay to transfer from the intensive care unit from my perspective. Could consider Pleurx catheter placement in the future given repeated thoracentesis requirements. 2. Amyloidosis Oncology following with the patient as an outpatient. Amyloidosis can affect the lungs, but typically it is from a secondary cause such as nephrotic syndrome and congestive heart failure. Patient could have a CT once pleural effusion is resolved for evaluation of lung parenchyma, but it would likely not change the overall course. Patient may benefit from pulmonary function testing once he is back to his baseline, but defer to primary service. 3. Nephrotic syndrome/hypothyroidism/hypertension/metabolic encephalopathy Complicates care, management, recovery and prognosis. Oncology has been consulted. Okay to continue with baseline medications. Suggest delirium protocol. Avoid benzodiazepines. Consider Haldol as needed Inpatient E&M: 750[address] [facility] Hosp L2
--- NOTE | 2019-06-16 08:29 | PN_ITS ---
Subjective: Chief complaint: Follow-up after admission for acute on chronic hypoxic and hypercapnic respiratory failure, acute on congestive CHF and recurrent right more than left pleural effusion status post thoracentesis. Patient seen and examined. Yesterday after thoracentesis, patient's blood pressure has been running low, systolic has been in the 80s. Overnight, blood pressure improved. Patient has been alert and oriented x2 but he has been agitated, trying to get out of bed. Now, he has a sitter. He is afebrile, heart rate has been in the 110, blood pressure improved, remains on 2 L of oxygen. - Physical Exam Vitals/I&O's: Vital Signs Temp Pulse Resp BP Pulse Ox 97.9 F 44 L 30 H 122/63 H 96 06/16/19 04:00 06/16/19 06:27 06/16/19 06:00 06/16/19 06:27 06/16/19 04:00 Oxygen Flow Rate (L/min) [3] 2 Oxygen Flow Rate (L/min) [2] 2 Oxygen Flow Rate (L/min) [1 ( 2 Initial Baseline)] Oxygen Flow Rate (L/min) 2 Oxygen Delivery Method [3] Nasal Cannula Oxygen Delivery Method [2] Nasal Cannula Oxygen Delivery Method [1 ( Nasal Cannula Initial Baseline)] Oxygen Delivery Method Nasal Cannula Weight: 188 lb 7.924 oz Body Mass Index (BMI) 30.2 Intake and Output for Last 24 Hours 06/14/19 06/15/19 06/16/19 23:59 23:59 23:59 Intake Total 60 / 60 769 / 769 Output Total 400 / 400 5725 / 5725 700 / 700 Balance -340 / -340 -4956 / -4956 -700 / -700 General: Alert, Cooperative, - - Oriented x2, disinterested time. HEENT: Atraumatic, PERRLA, EOMI, Normocephalic Oral: Moist Mucosa, No Gingival or Mucosal Lesions/ Ulcerations Neck: Supple, No JVD, Negative Carotid Bruits, Trachea Midline, Thyroid Normal Size and Texture Lungs: No wheeze, No rales, Diminished, Rhonchi, Short of Breath, - - Decreased breath sounds at the bases, more on the right base, scattered rhonchi. Cardiovascular: Regular rate, Regular Rhythm, Normal S1, Normal S2, PMI Normal Abdomen: Bowel Sounds Present, Soft, Non Tender, Non-Distended, No Hepato- splenomegaly Extremities: No clubbing, No cyanosis, Edema - + Edema. Skin: No rashes, No breakdown Lymphatic: No Cervical, Supraclavicular, or Inguinal Adenopathy Neurological: Cranial nerves II-XII grossly intact, Motor Exam 5/5 strength throughout Psych/Mental Status: Anxious, Restless Microbiology Past 72 Hours 06/15/19 14:12 Fluid - Thoracentesis Fluid Gram Stain - Final Laboratory Results 06/14/19 22:00: Vitamin B12 219 06/15/19 03:50: Hemoglobin A1c 5.2 06/15/19 04:35: Lactate Dehydrogenase 216 06/15/19 14:12: Fluid Glucose 114 H, Fluid Total Protein 1.2, Fluid LDH 68 06/15/19 14:12: Fluid Source THORACENTESIS, Fluid Color LT YEL, Fluid Appearance SL CLDY, Fluid WBC 0.034, Fluid RBC 127, Fluid Tot Cell Count 0.051, Fld Polynuclear WBCs # 0.000, Fld Polynuclear WBCs % 0.0, Fluid Mononuclear WBCs 0.034, Fld Mononuclear WBCs % 100.0, Fluid Lymphocytes 39, Fluid Monocytes 27, Fld Mesothelial Cells 34, Fl Pathologist Comment May follow, Fluid Comment 2 SEE COMMENT 06/15/19 14:12: Miscellaneous Cytology Pending 06/16/19 03:30: WBC 6.4, RBC 3.05 L, Hgb 9.5 L, Hct 31.3 L, MCV 102.6 H, MCH 31.1, MCHC 30.4 L, RDW Std Deviation 49.0 H, RDW Coeff of Babita 13.0, Plt Count 114 L, MPV 11.2, Immature Gran % (Auto) 0.200, Neut % (Auto) 79.8 H, Lymph % (Auto) 13.5 L, [place] % (Auto) 6.0, Eos % (Auto) 0.2, Baso % (Auto) 0.3, Absolute Neuts (auto) 5.1, Absolute Lymphs (auto) 0.86, Nucleated RBC % 0 06/16/19 03:30: Sodium 141, Potassium 4.0, Chloride 91 L, Carbon Dioxide > 45.0 H*, Anion Gap TNP, BUN 41 H, Creatinine 1.59 H, Estim Creat Clear Calc 44.47, Est GFR (MDRD) Af Amer 56 L, Est GFR (MDRD) Non-Af 46 L, BUN/Creatinine Ratio 25.8 H, Glucose 101, Calcium 8.7 Current Medications Acetaminophen (Tylenol) 650 mg PO Q6H PRN PRN PRN Reason: Pain Score 1-10/Temp > 100.7 F Al Hydroxide/Mg Hydroxide (Mylanta Ii) 30 ml PO Q6H PRN PRN PRN Reason: Gastric Burning Albuterol Sulfate (Ventolin Aerosols) 2.5 mg INHALATION Q2H PRN PRN PRN Reason: dyspnea, wheezing Aspirin (Aspirin, Baby) 81 mg PO DAILY@0800 [facility] Last Admin: 06/15/19 10:00 Dose: Not Given Documented by: Famotidine (Pepcid) 20 mg PO DAILY [facility] Glucagon () 1 mg IM .X1 PRN PRN Reason: Hypoglycemia Guaifenesin (Robitussin) 10 ml PO Q4H PRN PRN PRN Reason: COUGH Haloperidol Lactate (Haldol) 2 mg IV Q4H PRN PRN PRN Reason: AGITATION Last Admin: 06/16/19 04:09 Dose: 2 mg Documented by: Heparin Sodium (Porcine) (Heparin Na) 5,000 unit SC Q12 [facility] Last Admin: 06/15/19 20:49 Dose: 5,000 unit Documented by: Furosemide 500 mg/ N/A 50 mls @ 0.5 mls/hr CONT INF .Q100H [facility] Last Infusion: 06/15/19 17:00 Dose: 5 mg/hr, 0.5 mls/hr Documented by: Dextrose (Dextrose 10%-Water) 250 mls @ 999 mls/hr IV .Q16M PRN; Protocol PRN Reason: HYPOGLYCEMIA Sodium Chloride () 250 mls @ 15 mls/hr IV .[id number] PRN PRN Reason: Saline Flush Sodium Chloride () 250 mls @ 15 mls/hr IV .[id number] PRN PRN Reason: Additional IVPB Infusion Magnesium Hydroxide (Milk Of Magnesia) 30 ml PO DAILY PRN PRN PRN Reason: Constipation Melatonin (Melatonin) 10 mg PO QHS [facility] Last Admin: 06/15/19 20:49 Dose: 10 mg Documented by: Metoprolol Tartrate (Lopressor (Beta Zak)) 50 mg PO BID [facility] Last Admin: 06/15/19 12:07 Dose: 50 mg Documented by: Morphine Sulfate () 2 mg IV Q3H PRN PRN PRN Reason: Pain Score 6-10/10 Nitroglycerin (Nitrobid) 0.5 inch TRANSDERM. Q8 [facility] Last Admin: 06/16/19 06:27 Dose: Not Given Documented by: Ondansetron HCl (Zofran) 4 mg IV Q8H PRN PRN PRN Reason: NAUSEA/VOMITING Oxycodone HCl (Oxyir) 5 mg PO Q4H PRN PRN PRN Reason: Pain Score 4-5/10 Prochlorperazine Edisylate (Compazine Iv) 5 mg IV Q4H PRN PRN PRN Reason: Breakthrough Nausea/Vomiting Psyllium Hydrophilic Mucilloid (Metamucil) 1 packet PO DAILY PRN PRN PRN Reason: Constipation Senna/Docusate Sodium (Senokot-S, Lucita-Colace) 2 tablet PO BID PRN PRN PRN Reason: Constipation Sodium Chloride () 10 - 40 ml IV UD PRN PRN Reason: SALINE FLUSH Last Admin: 06/16/19 04:14 Dose: 10 ml Documented by: Throat Lozenges (Cepacol Sore Throat Lozenge) 1 lozenge MUCOUS MEM Q2H PRN PRN PRN Reason: SORE THROAT Medical Necessity - Tobacco Use Smoking Status: Former smoker Tobacco Use: Non-smoker Assessment/Plan All Active Problems (Last Updated 06/15/19 @ 10:[address] Verna Beltran MD) Bilateral pleural effusion (Acute) Acute respiratory failure with hypoxia and hypercapnia (Acute) Acute on chronic diastolic heart failure (Acute) This is a 68 years old male patient presented to the emergency room because of worsening shortness of breath and weakness, found to have increasing right pleural effusion complicated by acute on chronic hypercapnic and hypoxic respiratory failure and both are due to acute on chronic diastolic CHF. #1 acute on chronic hypercapnic and hypoxic respiratory failure: Multifactorial due to acute on chronic diastolic CHF and worsening right pleural effusion. Remained on IV Lasix drip and BiPAP, status post right thoracentesis. Blood pressure improved, slightly tachycardic. Remained on 2 L of oxygen. Patient is does have home oxygen and has been using 2 to 4 L. Plan to continue IV diuresis, repeat BMP tomorrow morning, transfer to PCU. #2 acute on chronic diastolic CHF: He is IV Lasix drip, and he is on aspirin, metoprolol. EKG revealed no acute ischemic changes. Troponin is minimally effective, came down to normal. Patient denied any chest pain. He had 2D echocardiogram on May, that revealed ejection fraction 65%, trivial pericardial effusion, no cardiac tamponade. Today's creatinine is 1.59, slightly increased from yesterday. Plan to continue same treatment, repeat BMP tomorrow morning.. #3 recurrent right pleural effusion: It is transudative effusion due to CHF and amyloidosis. Status post thoracentesis, 2100 cc of pleuritic fluid drained. Patient has been receiving thoracentesis on frequent admissions. He is on IV Lasix drip, continue BiPAP and oxygen as above. #4 hypertension: Blood pressure improved but his heart rate in the 100s. Metoprolol was held yesterday afternoon because of low blood pressure. Plan to resume metoprolol today. #5 amyloidosis/plasma cell dyscrasia: Currently not on any treatment. Recommend follow-up with oncology as outpatient. #6 hypothyroidism: Apparently, patient has been off levothyroxine. TSH was slightly related at 6.82. Free T4 was 0.83, normal. #7 nephrotic syndrome with proteinuria: Secondary to amyloidosis. Serum protein and albumin are low. Creatinine is 1.59, slightly up from yesterday. Plan to monitor. #8 chronic anemia: Baseline hemoglobin has been around 8 to 10 g/dL in the last 3 months. It is macrocytic anemia. No evidence of active bleeding. Hemoglobin today is 9.5 g/dL. No indication for blood transfusion. #9 DVT prophylaxis: Subcu heparin. This note was generated with [employer] dictation software. It may contain incorrect words, spelling, and punctuation that were not noted in checking the note before signing. Inpatient E&M: [id number] Subs Hosp L2
[2019-06-16] MEDS: Metoprolol Tartrate 50 MG Tablet PO (08:33)
[2019-06-16] MEDS: Heparin Injection (Vial) 5,000 UNIT/ML VIAL 5000 UNIT SC (08:34)
[2019-06-16] MEDS: Aspirin 81 MG TAB.CHEW PO (08:34)
[2019-06-16] MEDS: Famotidine 20 MG Tablet PO (08:34)
[2019-06-16 09:36] LABS: Pathologist Comment/Body Fluid Reviewed
--- NOTE | 2019-06-16 10:50 | NURSING ---
Jojo was at bedside and came out to sherman to ask for help in room. This RN and Carole Walters RN went in to bedside and found pt unresponsive with no pulse. Code button then pulled.
--- NOTE | 2019-06-16 11:29 | PN_ITS ---
Progress Note CODE BLUE announced at 10:55 AM. According to nursing staff, patient became bradycardic, heart rate went down to 30s and he was unresponsive. He has no pulse at that time. CPR was initiated. color television console monitor revealed QRS complexes without pulses consistent with pulseless electrical activity. CPR was continued and a total of 7 rounds of IV epinephrine given. Frequent rhythm checks revealed PEA. CPR continued along with the epinephrine injections as well as sodium bicarb bolus. Patient received 2 boluses of IV sodium bicarb. After the fifth epinephrine injection, color television console monitor revealed ventricular fibrillation. Patient was shocked with 200 J twice and CPR continued. After 27 minutes of CPR, patient had no pulse. CPR terminated. Patient had no more breath sounds and no heartbeat. announced at 11:26 AM on June 16, 2019. STROKE Vital Signs/Narrative: Vital Signs Temp Pulse Resp BP BP Pulse Ox 06/16/19 09:00 97.4 F L 90 20 H 117/86 H 94 06/16/19 08:33 117 H 06/16/19 08:00 121 H 29 H 123/101 H 95 06/16/19 07:30 96
[2019-06-16 11:40] LABS: Bedside Glucose 166 mg/dL (70-110)
--- NOTE | 2019-06-16 11:59 | CASEMGMT ---
A code blue was called. No family was present. CORY contacted patient's significant other Juany and asked if she would be able to come in to [facility]. She said her son was going to bring her at noon. CORY asked if she could get someone to bring her in sooner. She said she would try. Patient's significant other arrived, her son brought her in. SW notified physician. Physician spoke with patient's significant other letting her know that patient . SW and beekeeper farmer accompanied patient's significant other to patient's room. Emotional support provided. Juany said she would like [facility] home. CORY passed this along to the chargemaster specialist. Manuela LOCKETT MSW
--- NOTE | 2019-06-16 12:42 | PCM.DEATH ---
Preliminary Cause of Pulseless electrical activity/ventricular fibrillation cardiac arrest Date of Admission: 06/14/19 Date of : 06/16/19 - Principle Diagnosis #1 acute on chronic hypercapnic and hypoxic respiratory failure. #2 acute on chronic diastolic CHF. #3 recurrent right pleural effusion status post thoracentesis. Problem List: #1 amyloidosis. #2 plasma cell dyscrasia. #3 nephrotic syndrome with proteinuria. #4 hypothyroidism. #5 chronic anemia. Hospital Course This is a 68 years old male patient presented to the emergency room on June 14, 2019 because of worsening shortness of breath and he was found to have acute on chronic hypoxic and hypercarbic respiratory failure which was attributed to acute on chronic diastolic CHF as well as increasing and recurrent right-sided pleural effusion. This patient was known to me from previous admissions and he has been admitted frequently for the same problem with acute on chronic respiratory failure due to acute on chronic diastolic CHF and recurrent right-sided pleural effusion. This patient had a history of amyloidosis with recurrent pleural effusion and he underwent multiple thoracentesis in the past. During this hospital stay, patient initially was admitted to ICU for acute on chronic hypoxic and hypercapnic respiratory failure. His ABG on the day of admission revealed pH of 7.27, PCO2 of 119 and PO2 of 113. He was admitted to ICU, started on IV Lasix drip for the acute CHF as well as BiPAP and oxygen by nasal cannula. He underwent thoracentesis and more than 2 L of pleuritic fluid was taken out from the right lung. After thoracentesis, patient became slightly hypotensive although he was asymptomatic and he was kept in the ICU for 1 more night. His blood pressure improved and his heart rate started to go up because metoprolol was held. On the day of , patient looked okay in the ICU, remained on oxygen at 2 L, blood pressure improved and heart rate was around 100 and he was given metoprolol. Patient was transferred down to PCU and shortly after after transfer, patient became bradycardic, unresponsive and he had no pulse. CPR was initiated at 10:56 AM on June 16, 2019. CPR continued for about 27 minutes. Patient was intubated. Initially, monitor revealed pulseless electrical activity for which CPR continued and received total of 7 rounds of IV epinephrine as well as 2 rounds of IV sodium bicarb boluses. After the fifth IV epinephrine, patient went into ventricular fibrillation for which she received 200 J shocks twice and CPR continued. Although CPR continued for 27 minutes and patient was shocked twice, we were not able to regain circulation. After 20 minutes of CPR, CPR was terminated. Patient had no more pulse and no breath sounds. announced at 11:26 AM on June 16, 2019. Inpatient E&M: [id number] [facility] Hosp
--- NOTE | 2019-06-16 13:27 | CHAPLAIN ---
Type of Pastoral Visit ___ Initial Visit ___ Follow-up Visit ___ On-call Visit ___ General Patient Visit ___ Spiritual Assessment ___ Family Conference _x__ Bereavement ___ Rapid Response _x__ Code Blue ___ Other (describe below) Pastoral Care Referral From ___ Patient ___ Family ___ Nurse ___ Physician ___ [place] Laboratory Assistant ___ Manager Drug Safety _x__ Other (describe below) Sacrament/Intervention ___ Active listening ___ Anointing ___ Mormon _x__ Bereavement ___ Communion ___ Domenica exploration ___ ___ Life review ___ Prayer ___ Reconciliation ___ Sacrament of Sick _x__ Supportive presence ___ Wedding ___ Other (describe below) Pastoral Comments responded to code blue; SW called in SO and she came after pronouncement of ; met with SO and her son and escorted them to room; offer of support and presence; met with other family members as they arrived; assisted with refreshments and brought a carnation from bereavement team; stayed with family until all members present who wanted opportunity to see the
--- NOTE | 2019-06-16 14:57 | NURSING ---
Patients family left at [phone]. Home notified
== END 2019-06-16 11:42 | DRG 291 ==
LOC: ED 20:04 → ICU 20:17 → PCU 06-16 11:34
PROVIDERS: Internal Medicine Critical Care Medicine; Admitting Provider Family Medicine; Emergency Provider Emergency Medicine; PCP Student in an Organized Health Care Education/Training Program; Visit Provider Hospitalist
DX: I13.0 Hypertensive heart and chronic kidney disease with heart failure and stage 1 through stage 4 chronic kidney disease, or unspecified chronic kidney disease (principal); J96.22 Acute and chronic respiratory failure with hypercapnia; I50.33 Acute on chronic diastolic (congestive) heart failure; J96.21 Acute and chronic respiratory failure with hypoxia; E85.9 Amyloidosis, unspecified; J91.8 Pleural effusion in other conditions classified elsewhere; N04.9 Nephrotic syndrome with unspecified morphologic changes; I49.01 Ventricular fibrillation; I46.9 Cardiac arrest, cause unspecified; Z99.81 Dependence on supplemental oxygen; D75.89 Other specified diseases of blood and blood-forming organs; N18.3 Chronic kidney disease, stage 3 (moderate); J44.9 Chronic obstructive pulmonary disease, unspecified; G47.33 Obstructive sleep apnea (adult) (pediatric); E03.9 Hypothyroidism, unspecified; D53.9 Nutritional anemia, unspecified; Z87.891 Personal history of nicotine dependence
CPT/HCPCS: 31500; 32555; 36600; 51702; 71045; 71046; 80048; 80053; 82607; 82728; 82746; 82803; 82945; 82962; 83036; 83540; 83550; 83605; 83615; 83690; 83735; 83880; 84157; 84439; 84443; 84484; 85025; 85610; 85730; 87070; 87075; 87205; 88108; 88305; 88313; 89050; 92950; 93005; 94002; 94640; 97802; 99251; 99285; J7030; A4216; G0463; J1940